=== PATIENT | male | born 1965 ===

== ENCOUNTER 2020-08-06 08:19 | Outpatient (REF) | payer OTHER, SELFPAY | END 2020-08-06 08:20 | disposition home or self-care (01) | LOC: HO.LAB 08:19 | PROVIDERS: Visit Provider Internal Medicine | DX: Z20.822 Contact with and (suspected) exposure to COVID-19 (principal) | CPT/HCPCS: 36415; C9803; U0003 ==

== ENCOUNTER 2020-10-28 13:20 | Outpatient (REF) | payer OTHER, SELFPAY ==
[2020-10-28 15:05] LABS: COVID-19 Test Negative (Negative); IDNOW Serial# 55D5AD1C
== END 2020-10-28 13:21 | disposition home or self-care (01) ==
LOC: HO.LAB 13:20
PROVIDERS: Visit Provider Internal Medicine
DX: Z20.822 Contact with and (suspected) exposure to COVID-19 (principal)
CPT/HCPCS: 36415; 87635; C9803

== ENCOUNTER 2021-01-24 08:10 | Inpatient (IN) | payer MEDICARE, MEDICAID, SELFPAY ==
[2021-01-24] VITALS (13 sets, daily range): BP systolic 121–193; BP diastolic 77–112; PULSE 89–155; RESP 16–21; TEMP 36.9; O2SAT 97–99; BMI 31.8
--- NOTE | ~2021-01-24 | XR_ITS ---
EXAMINATION: XR CHEST CLINICAL INFORMATION: Atrial fibrillation COMPARISON: 06/28/2010 TECHNIQUE: Frontal view of the chest was obtained. FINDINGS: Prominent central vasculature and increased interstitial markings suggestive of mild pulmonary edema. No consolidation or effusion. Normal cardiac silhouette. XR/XR chest 1V IMPRESSION: Probable mild CHF.
--- NOTE | 2021-01-24 08:25 | ECG_ITS ---
Test Reason : TACHY Blood Pressure : / mmHG Vent. Rate : 139 BPM Atrial Rate : 131 BPM P-R Int : 000 ms QRS Dur : 078 ms QT Int : 318 ms P-R-T Axes : 000 021 046 degrees QTc Int : 483 ms Atrial fibrillation with rapid ventricular response with premature ventricular or aberrantly conducted complexes Nonspecific ST abnormality Abnormal ECG When compared with ECG of 28-JUN-2010 12:30, Atrial fibrillation has replaced Sinus rhythm Vent. rate has increased BY 47 BPM Referred By: Bakari Strong Electronically Signed By:SARAH MOE
--- NOTE | 2021-01-24 08:27 | ED.SOB ---
HPI - SOB/Dyspnea General Chief Complaint: Dyspnea Stated Complaint: SOB Time Seen by Provider: 01/24/21 08:25 Source: patient Mode of arrival: ambulatory Limitations: no limitations History of Present Illness HPI Narrative: 55-year-old male otherwise healthy came in for evaluation of shortness of breath. Symptoms started few weeks/months ago when he wakes up at night time feeling short of breath then go back to sleep, same symptoms happened today but did not resolve, patient came to the emergency department appear very anxious found to have heart rate of 150s EKG showed new onset atrial fibrillation with rapid ventricular response. Patient otherwise declined any symptoms at the current time. No chest pain, no palpitation, no shortness of breath, no fever, no chills. Patient is complaining of left ankle swelling for the past few weeks on and off, patient had old fracture to the left ankle in the past. No leg edema or calf tenderness or swelling. Related Data Home Medications Medication Instructions Recorded Confirmed No Known Home Meds 01/24/21 01/24/21 Allergies Allergy/AdvReac Type Severity Reaction Status Date / Time No Known Allergies Allergy Verified 01/24/21 09:17 Review of Systems Review of Systems: All other systems are reviewed and are negative Constitutional: Reports as per HPI and Reports no additional constitutional complaints Eyes: Reports as per HPI and Reports no additional eye complaints Reports system reviewed and no additional complaints, except as documented Cardiovascular: Reports as per HPI and Reports no additional cardiovascular complaints Respiratory: Reports as per HPI and Reports no additional respiratory complaints Gastrointestinal: Reports as per HPI and Reports no additional gastrointestinal complaints Genitourinary: Reports no additional female genitourinary complaints Musculoskeletal: Reports no additional musculoskeletal complaints Skin/Breast: Reports system reviewed and no additional complaints, except as docu Psychiatric: Reports no additional psychiatric complaints Endocrine: Reports no additional endocrine complaints Hematologic/Lymphatic: Reports no additional hematologic/lymphatic complaints Allergic/Immunologic: Reports no additional allergic/immunologic complaints Reports system reviewed and no additional complaints, except as documented and Reports Abnormal speech present [facility] Past Medical History Surgical History S/P hip replacement Status post ORIF of fracture of ankle Social History Social History Advance Directives: No Advance Directives Information Provided: No Physical Exam Vital Signs: Vital Signs: Last Vital Signs Temp 98.5 F 01/24/21 08:19 Pulse 106 H 01/24/21 09:17 Resp 21 H 01/24/21 09:17 BP 162/97 H 01/24/21 09:17 Pulse Ox 99 01/24/21 09:17 Body Mass Index 31.8 Vital signs have been reviewed as appeared to be correct. Blood pressure elevated. Heart rate elevated l. Respiration rate normal. Temperature normal. Oxygen saturation normal. Appearance: Alert. Oriented X3. No acute distress. Anxious Head: Normal external exam. Normocephalic. Atraumatic. No Coffey signs noted. No raccoon eyes noted Eyes: PERRLA. EOMI. Conjunctiva and sclera normal. Eyelids normal. ENT: TM's Normal. Pharynx normal. Uvula midline. Moist mucous membranes. No trismus noted. No drooling noted. No muffled voice noted. Neck: Normal inspection. Neck supple. FROM. No adenopathy. Thyroid Normal. No meningeal signs. No neck mass noted. CVS: Rapid heart beats, with irregular rate and rhythm.. Heart sound normal. No murmurs noted. Pulses normal throughout. Respiratory: No respiratory distress. Painless inspiration. Breath sounds normal. No wheezes/rhonchi noted. Bilateral basilar rales. Chest nontender. No accessory muscle usage noted or decreased air movement noted. Abdomen: Soft and nontender. Bowel sounds normal in all 4 quadrants. No distention noted. No organomegaly noted. No visible injury noted. Back: No CVA tenderness. Full range of motion noted. Skin: Skin warm and dry. Normal skin color. Normal skin turgor. No rashes/lesions/lacerations noted. Extremities: No lower extremity edema. Extremities exhibit normal range of motion. Extremities nontender. Neuro: Oriented X 3. No motor deficit. No sensory deficit. Reflexes normal. Course Course Course Narrative: Assessment and plan. 55-year-old male came in with dyspnea and found to have a new onset of atrial fibrillation with rapid response. Patient given Cardizem IV push and IV drip heart rate now with 105 Bpm. Patient has no complain, time. Admit patient for further cardiology workup. MDM - SOB/Dyspnea Lab Data Attestation: I reviewed the patient's lab results. Result diagrams: 01/24/21 08:29 01/24/21 08:29 Labs: Lab Results 01/24/21 01/24/21 01/24/21 Range/Units 08:29 08:29 08:29 WBC 9.7 (4.8-10.8) X10*3/uL RBC 4.34 L (4.60-5.80) X10*6/uL Hgb 12.7 L (14.0-18.0) g/dl Hct 39.1 L (42-52) % MCV 90.1 (80-98) fL MCH 29.3 (27.0-33.0) pg MCHC 32.5 (31.0-36.0) g/dl RDW 12.7 (11.0-16.0) % Plt Count 369 (160-400) X10*3/uL MPV 10.0 (9.4-12.4) fL Immature Gran % (Auto) 0.2 (0.0-0.4) % Neut % (Auto) 65.2 (45-73) % Lymph % (Auto) 25.2 (20-40) % [place] % (Auto) 8.6 (2-11) % Eos % (Auto) 0.3 (0-4) % Baso % (Auto) 0.5 (0-2) % Lymph # (Auto) 2.4 (1.2-4.9) X10*3/uL [place] # (Auto) 0.8 (0.1-1.2) X10*3/uL Eos # (Auto) 0.0 (0.0-0.4) X10*3/uL Baso # (Auto) 0.1 (0.0-0.2) X10*3/uL Abs Immat Gran (auto) 0.02 (0.00-0.03) X10*3/uL Absolute Neuts (auto) 6.3 (2.0-8.3) X10*3/uL Absolute Nucleated RBC 0.000 (0.0-0.012) X10*3/uL Nucleated RBC % (auto) 0.0 (0.0-0.2) /100WBC Sodium 139 (135-145) mmol/L Potassium 4.1 (3.3-5.1) mmol/L Chloride 104 (96-108) mmol/L Carbon Dioxide 22 (22-29) mmol/L Anion Gap 17 (12-20) BUN 8 L (9-16) mg/dL Creatinine 0.85 (0.5-1.4) mg/dL Estim Creat Clear Calc 137.8 Estimated GFR > 60 Random Glucose 107 (60-115) mg/dL Calcium 9.9 (8.4-10.2) mg/dL Magnesium 1.8 (1.6-2.6) mg/dL Total Bilirubin 1.0 (0.0-1.0) mg/dL Direct Bilirubin 0.5 (0.0-0.5) mg/dL AST 45 H (5-37) U/L ALT 24 (0-40) U/L Alkaline Phosphatase 122 H (39-117) U/L Troponin I High Sens 11.3 (<3.5-35.0) ng/L B-Natriuretic Peptide 240 H (<100) pg/mL Total Protein 7.7 (6.5-8.0) g/dL Albumin 4.1 (3.5-5.0) g/dL Lipase 14 (8-78) U/L COVID-19 (MAZIN) (Negative) COVID-19 Clin Com 01/24/21 Range/Units 08:29 WBC (4.8-10.8) X10*3/uL RBC (4.60-5.80) X10*6/uL Hgb (14.0-18.0) g/dl Hct (42-52) % MCV (80-98) fL MCH (27.0-33.0) pg MCHC (31.0-36.0) g/dl RDW (11.0-16.0) % Plt Count (160-400) X10*3/uL MPV (9.4-12.4) fL Immature Gran % (Auto) (0.0-0.4) % Neut % (Auto) (45-73) % Lymph % (Auto) (20-40) % [place] % (Auto) (2-11) % Eos % (Auto) (0-4) % Baso % (Auto) (0-2) % Lymph # (Auto) (1.2-4.9) X10*3/uL [place] # (Auto) (0.1-1.2) X10*3/uL Eos # (Auto) (0.0-0.4) X10*3/uL Baso # (Auto) (0.0-0.2) X10*3/uL Abs Immat Gran (auto) (0.00-0.03) X10*3/uL Absolute Neuts (auto) (2.0-8.3) X10*3/uL Absolute Nucleated RBC (0.0-0.012) X10*3/uL Nucleated RBC % (auto) (0.0-0.2) /100WBC Sodium (135-145) mmol/L Potassium (3.3-5.1) mmol/L Chloride (96-108) mmol/L Carbon Dioxide (22-29) mmol/L Anion Gap (12-20) BUN (9-16) mg/dL Creatinine (0.5-1.4) mg/dL Estim Creat Clear Calc Estimated GFR Random Glucose (60-115) mg/dL Calcium (8.4-10.2) mg/dL Magnesium (1.6-2.6) mg/dL Total Bilirubin (0.0-1.0) mg/dL Direct Bilirubin (0.0-0.5) mg/dL AST (5-37) U/L ALT (0-40) U/L Alkaline Phosphatase (39-117) U/L Troponin I High Sens (<3.5-35.0) ng/L B-Natriuretic Peptide (<100) pg/mL Total Protein (6.5-8.0) g/dL Albumin (3.5-5.0) g/dL Lipase (8-78) U/L COVID-19 (MAZIN) Negative (Negative) COVID-19 Clin Com See Note Imaging Data Chest x-ray: Radiologist's impression: Probable mild CHF. ECG Data Interpretation: Atrial fibrillation with rapid ventricular response at 01:39 me per minutes, normal axis deviation, normal intervals, no ST-T skin devaughn changes. Critical Care Time Critical Care Time Critical Care Time: Yes Total Critical Care Time: 30 Attestation: I spent 30 minutes providing critical care service to the patient, this including time spent at the bedside to evaluate the patient, reassess the patient, monitoring vital signs, review labs, and radiographic studies, counseling the patient/family, discussing the case with consultants, disposition the patient. Discharge Plan Discharge Clinical Impression: Atrial fibrillation, new onset Congestive heart failure Qualifiers: Heart failure type: unspecified Heart failure chronicity: acute Qualified Code(s): I50.9 - Heart failure, unspecified Patient Disposition: Admitted As Inpatient
[2021-01-24] MEDS: dilTIAZem HCL 50 MG/10 ML VIAL 20 MG IVPUSH (08:28)
[2021-01-24] MEDS: Aspirin Enteric Coated 81 MG TABLET.DR PO (08:32)
[2021-01-24 08:33] LABS: MANUAL DIFF FLAG NO
[2021-01-24 08:35] LABS: Basophils Absolute Auto 0.1 X10*3/uL (0.0-0.2); Basophils Percent Auto 0.5 % (0-2); Eosinophils Percent Auto 0.3 % (0-4); Hematocrit 39.1 % (42-52); Hemoglobin 12.7 g/dl (14.0-18.0); Imm Gran Abs Auto 0.02 X10*3/uL (0.00-0.03); Imm Gran Pct Auto 0.2 % (0.0-0.4); Lymphocytes Absolute Auto 2.4 X10*3/uL (1.2-4.9); Lymphocytes Percent Auto 25.2 % (20-40); Mean Corpuscular HGB Conc 32.5 g/dl (31.0-36.0); Mean Corpuscular Hemoglobin 29.3 pg (27.0-33.0); Mean Corpuscular Volume 90.1 fL (80-98); Monocytes Absolute Auto 0.8 X10*3/uL (0.1-1.2); Monocytes Percent Auto 8.6 % (2-11); Neutrophils Absolute Auto 6.3 X10*3/uL (2.0-8.3); Neutrophils Percent Auto 65.2 % (45-73); Platelet Count 369 X10*3/uL (160-400); Red Blood Count 4.34 X10*6/uL (4.60-5.80); Red Cell Distribution Width 12.7 % (11.0-16.0); White Blood Count 9.7 X10*3/uL (4.8-10.8)
[2021-01-24] MEDS: LORazepam 1 MG TABLET PO (08:37)
[2021-01-24] MEDS: dilTIAZem HCL 125 MG in 0.9 % Sodium Chloride 100 ML 10 MG IVCONT (08:46)
[2021-01-24 08:59] LABS: B Type Natriuretic Peptide 240 pg/mL (<100); Troponin-I High Sensitivity 11.3 ng/L (<3.5-35.0)
[2021-01-24 09:05] LABS: COVID-19 Test Negative (Negative); IDNOW Serial# 9DD0AD1C
[2021-01-24 09:06] LABS: Alanine Aminotransferase 24 U/L (0-40); Albumin Level 4.1 g/dL (3.5-5.0); Alkaline Phosphatase 122 U/L (39-117); Anion Gap 17 (12-20); Aspartate Amino Transferase 45 U/L (5-37); Bilirubin Direct 0.5 mg/dL (0.0-0.5); Blood Urea Nitrogen 8 mg/dL (9-16); Calcium 9.9 mg/dL (8.4-10.2); Carbon Dioxide 22 mmol/L (22-29); Chloride 104 mmol/L (96-108); Creatinine Clr Calc Pharmacy 137.8; Estimated Glomerular Filt Rate > 60; Glucose Random 107 mg/dL (60-115); Lipase 14 U/L (8-78); Magnesium 1.8 mg/dL (1.6-2.6); Potassium 4.1 mmol/L (3.3-5.1); Sodium 139 mmol/L (135-145); Total Protein 7.7 g/dL (6.5-8.0)
--- NOTE | 2021-01-24 09:27 | ECG_ITS ---
Test Reason : DYSPNEA Blood Pressure : / mmHG Vent. Rate : 102 BPM Atrial Rate : 100 BPM P-R Int : 000 ms QRS Dur : 074 ms QT Int : 382 ms P-R-T Axes : 000 -01 021 degrees QTc Int : 497 ms Atrial fibrillation with rapid ventricular response with premature ventricular or aberrantly conducted complexes Abnormal ECG When compared with ECG of 24-JAN-2021 08:18, No significant change was found Referred By: Bakari Strong Electronically Signed By:SARAH MOE
[2021-01-24] MEDS: Furosemide 20 MG/2 ML VIAL IVPUSH (09:37)
--- NOTE | 2021-01-24 09:55 | P.HPHOSP_ITS ---
History of Present Illness Date of Service: 01/24/21 Chief Complaint: sob 55M Presented with shortness of breath and palpitations. Patient states that for last several months he has been having episodes paroxysmal nocturnal dyspnea associated with palpitations. He wakes up some in of the night short of breath clutches his chest, sits up and eventually starts to feel better and goes back to sleep. During the day he feels okay, does note orthopnea. On night of presentation, patient states that he had another similar episode and decided to finally come to the ER to figure out what is going on. Patient denies any medical history, is not on any medications at home. He is morbidly obese, he notices that he snores and sometimes stops breathing and on the night and his friends have told him that he probably has sleep apnea, he does drink alcohol daily, about 12 beers and 5-10 shots fire balls. In ED patient noted to be in atrial fibrillation with rapid ventricular response. Chest x-ray showed some m ild CHF. He was started on diltiazem and given Lasix. Review of Systems Review of Systems: Constitutional: Denies fever, denies Chills Eyes: denies blurry vision ENT: denies sore throat CVS: palpitations Respiratory: dyspnea GI: no abdominal pain : denies dysuria MSK: denies neck pain Skin: denies rash Neuro: denies specific motor weakness Psych: denies suicidal ideation Endocrine: denies heat/cold intoleratnce Hematologic: denies easy bleeding Allergy: denies hives [facility] Family History (Updated 01/24/21 @ 09:59 by Donte David MD) Other Diabetes mellitus Surgical History S/P hip replacement Status post ORIF of fracture of ankle Social History Alcohol intake: current Patient Tobacco Use Status: Former Tobacco user Substance Use Type: Marijuana Advance Directives: No Advance Directives Information Provided: No Meds Allergies Allergy/AdvReac Type Severity Reaction Status Date / Time No Known Allergies Allergy Verified 01/24/21 09:17 Active Medications: Current Medications Generic Name Dose Route Start Last Admin Trade Name Freq PRN Reason Stop Dose Admin Diltiazem HCl 125 mg/ Sodium 125 mls @ 0 mls/hr 01/24/21 08:45 01/24/21 08:46 Chloride IVCONT 10 mg/hr .Q0M TIGIST 10 mls/hr Administration Protocol Per Protocol Home Medications Medication Instructions Recorded Confirmed Last Taken Type No Known Home Meds 01/24/21 01/24/21 Unknown History Physical Exam Vital Signs and Narrative: Vital Signs: Last Vital Signs Temp 98.5 F 01/24/21 08:19 Pulse 106 H 01/24/21 09:17 Resp 21 H 01/24/21 09:17 BP 162/97 H 01/24/21 09:17 Pulse Ox 99 01/24/21 09:17 Body Mass Index 31.8 General: no acute distress HEENT: atraumatic Neck: normal to visual inspection CVS: S1, S2, Rapid irregular Resp: basilar crackles Chest: non tender GI: soft, non tender, non distended : no CVA tenderness Skin: no rashes Extremities: no edema Neuro: Oriented X3, grossly intact Psych: cooperative Results Labs CBC and Chem 7: 01/24/21 08:29 01/24/21 08:29 Labs: Laboratory Results - last 24 hr 01/24/21 01/24/21 01/24/21 08:29 08:29 08:29 MCV 90.1 MCH 29.3 MCHC 32.5 RDW 12.7 Plt Count 369 MPV 10.0 Immature Gran % (Auto) 0.2 Neut % (Auto) 65.2 Lymph % (Auto) 25.2 [place] % (Auto) 8.6 Eos % (Auto) 0.3 Baso % (Auto) 0.5 Lymph # (Auto) 2.4 [place] # (Auto) 0.8 Eos # (Auto) 0.0 Baso # (Auto) 0.1 Abs Immat Gran (auto) 0.02 Absolute Neuts (auto) 6.3 Absolute Nucleated RBC 0.000 Nucleated RBC % (auto) 0.0 Anion Gap 17 Estim Creat Clear Calc 137.8 Estimated GFR > 60 Random Glucose 107 Calcium 9.9 Magnesium 1.8 Total Bilirubin 1.0 Direct Bilirubin 0.5 AST 45 H ALT 24 Alkaline Phosphatase 122 H Troponin I High Sens 11.3 B-Natriuretic Peptide 240 H Total Protein 7.7 Albumin 4.1 Lipase 14 COVID-19 (MAZIN) COVID-19 Clin Com 01/24/21 08:29 MCV MCH MCHC RDW Plt Count MPV Immature Gran % (Auto) Neut % (Auto) Lymph % (Auto) [place] % (Auto) Eos % (Auto) Baso % (Auto) Lymph # (Auto) [place] # (Auto) Eos # (Auto) Baso # (Auto) Abs Immat Gran (auto) Absolute Neuts (auto) Absolute Nucleated RBC Nucleated RBC % (auto) Anion Gap Estim Creat Clear Calc Estimated GFR Random Glucose Calcium Magnesium Total Bilirubin Direct Bilirubin AST ALT Alkaline Phosphatase Troponin I High Sens B-Natriuretic Peptide Total Protein Albumin Lipase COVID-19 (MAZIN) Negative COVID-19 Clin Com See Note Imaging Radiologist's Impressions: Impressions Chest X-Ray 01/24/21 08:25 IMPRESSION: Probable mild CHF. Assessment and Plan (1) Congestive heart failure: Qualifiers: Heart failure chronicity: acute Heart failure type: unspecified Qualified Code(s): I50.9 - Heart failure, unspecified Status: Acute (2) Atrial fibrillation, new onset: Status: Acute 55M presented with sob new onset atrial fibrillation due to Alcohol, likely undiagnosed FARHEEN, concern for cardiomyopathy. cardizem echo cardio eval acute chf unspecified lasix echo alcohol dependence with withdrawl and fatty liver phenobarb Quality Stroke Does the patient have a stroke diagnosis?: No VTE Prior VTE?: No VTE Risk Level:: Medical - moderate - high VTE Device Contraindication: Treatment Not Indicated VTE Drug Contraindication: N/A - Med Ordered
[2021-01-24 10:35] LABS: Glucose Urine UA NEG (NEG); Leukocyte Esterase Urine NEG (NEG); Nitrite Urine NEG (NEG); Specific Gravity - Urine 1.015 (1.005-1.025); Urine Blood NEG (NEG); Urine Ketones NEG (NEG); Urine Protein NEG (NEG-TRACE)
[2021-01-24 10:36] LABS: Appearance Urine CLEAR; Color Urine YELLOW
[2021-01-24] MEDS: PHENobarbitaL sodium 130 MG/ML VIAL 270.4 MG IM (10:36)
[2021-01-24] MEDS: Enoxaparin Sodium 40 MG/0.4 ML SYRINGE SUBCUT (10:36)
--- NOTE | 2021-01-24 11:01 | PM.CNCAR ---
History of Present Illness History of Present Illness Date of Service: 01/24/21 Consult reason: congestive heart failure Chief complaint: H AFIB Narrative: This is a cardiology consultation regarding atrial fibrillation and congestive heart failure. Patient has a history of hypertension but does not take any medications. He is a heavy drinker and drinks a 12 pack every day also with multiple shots. He states that for the last few months he has been noticing difficulty with breathing during physical activities. He also wakes up at night not able to breathe. Not clear if that is orthopnea or obstructive sleep apnea. No anginal-type symptoms. No clear palpitations. He has been found to have atrial fibrillation with rapid rate. We have been asked see him for further evaluation. He denies any prior cardiac history. He used to work in [employer] industry but has not done so in the last year after he had some hip surgery done. As above, drinks daily. Uses marijuana but does not smoke cigarettes. No other drugs. Review of Systems Review of Systems: Yes all other systems are reviewed and are negative Cardiovascular: Cardiovascular: Reports as per HPI, Reports no additional cardiovascular complaints, Denies acrocyanosis, Denies cool extremities, Denies painful fingertips, Denies chest pain, Denies chest pain at rest, Denies diaphoresis, Denies syncope, Denies irregular heart rhythm, Denies claudication, Denies leg edema, Denies lightheadedness, Denies palpitations and Reports dyspnea Respiratory: Respiratory: Reports dyspnea Neurologic: Denies syncope Endocrine: Endocrine: Denies palpitations [facility] Family History Family History (Updated 01/24/21 @ 09:59 by Donte David MD) Other Diabetes mellitus Surgical History Surgical History S/P hip replacement Status post ORIF of fracture of ankle Social History Social History Alcohol intake: current Patient Tobacco Use Status: Former Tobacco user Substance Use Type: Marijuana Advance Directives: No Advance Directives Information Provided: No Meds Allergies Allergy/AdvReac Type Severity Reaction Status Date / Time No Known Allergies Allergy Verified 01/24/21 09:17 Active Medications: Current Medications Generic Name Dose Route Start Last Admin Trade Name Freq PRN Reason Stop Dose Admin Enoxaparin Sodium 40 mg 01/24/21 11:00 01/24/21 10:36 Enoxaparin Sodium 40 Mg/0.4 Ml Syringe SUBCUT 40 mg Q24H [facility] Administration Furosemide 40 mg 01/24/21 18:00 Furosemide 40 Mg/4 Ml Vial IVPUSH BID@0900,1800 [facility] Protocol Diltiazem HCl 125 mg/ Sodium 125 mls @ 0 mls/hr 01/24/21 08:45 01/24/21 08:46 Chloride IVCONT 10 mg/hr .Q0M TIGIST 10 mls/hr Administration Protocol Per Protocol Medication 1 each 01/24/21 10:18 No Benzodiazepines MISCELLANE DAILY [facility] Phenobarbital 60 mg 01/25/21 09:00 Phenobarbital 30 Mg Tablet PO 01/26/21 21:01 BID [facility] Protocol Phenobarbital 30 mg 01/27/21 09:00 Phenobarbital 30 Mg Tablet PO 01/28/21 21:01 BID [facility] Protocol Phenobarbital 30 mg 01/29/21 09:00 Phenobarbital 30 Mg Tablet PO 01/30/21 09:01 DAILY [facility] Protocol Phenobarbital Sodium 202 mg 01/24/21 13:30 Phenobarbital Sodium 130 Mg/Ml Vial IM 01/24/21 16:31 Q3H [facility] Protocol Sodium Chloride 3 ml 01/24/21 16:00 0.9 % Sodium Chloride Flush 3 Ml Syringe IVFLUSH QSHIFT [facility] Home Medications Medication Instructions Recorded Confirmed Last Taken Type No Known Home Meds 01/24/21 01/24/21 Unknown History Physical Exam Vital Signs: Vital Signs: Last Vital Signs Temp 98.5 F 01/24/21 08:19 Pulse 125 H 01/24/21 10:39 Resp 16 01/24/21 10:39 BP 163/82 H 01/24/21 10:39 Pulse Ox 99 01/24/21 09:17 Body Mass Index 31.8 Const: General: cooperative and no acute distress HENMT: Other: Unremarkable Neck: Neck: Yes normal visual inspection Chest: Chest palpation & inspection: normal inspection of the chest Resp: Auscultation: clear to auscultation bilaterally, no crackles and no wheezes Cardio: Jugular venous distension: no JVD Palpation: normal PMI Heart sounds: S1 normal heart sound present, S2 normal heart sound present, no gallops, no murmurs and no rubs GI: Palpation (GI): Soft to palpation Back/Spine/Pelvis: Other: unremarkable Skin: General skin exam: no rashes or lesions noted Neuro: Cranial nerves: Yes Other cranial nerve findings present Extrem: General: Yes no clubbing, cyanosis or edema Psych: Mental Status: other Results Labs and Meds Result diagrams: 01/24/21 08:29 01/24/21 08:29 Lab results: Laboratory Results - last 24 hr 01/24/21 01/24/21 01/24/21 08:29 08:29 08:29 WBC 9.7 RBC 4.34 L Hgb 12.7 L Hct 39.1 L MCV 90.1 MCH 29.3 MCHC 32.5 RDW 12.7 Plt Count 369 MPV 10.0 Immature Gran % (Auto) 0.2 Neut % (Auto) 65.2 Lymph % (Auto) 25.2 [place] % (Auto) 8.6 Eos % (Auto) 0.3 Baso % (Auto) 0.5 Lymph # (Auto) 2.4 [place] # (Auto) 0.8 Eos # (Auto) 0.0 Baso # (Auto) 0.1 Abs Immat Gran (auto) 0.02 Absolute Neuts (auto) 6.3 Absolute Nucleated RBC 0.000 Nucleated RBC % (auto) 0.0 Sodium 139 Potassium 4.1 Chloride 104 Carbon Dioxide 22 Anion Gap 17 BUN 8 L Creatinine 0.85 Estim Creat Clear Calc 137.8 Estimated GFR > 60 Random Glucose 107 Calcium 9.9 Magnesium 1.8 Total Bilirubin 1.0 Direct Bilirubin 0.5 AST 45 H ALT 24 Alkaline Phosphatase 122 H Troponin I High Sens 11.3 B-Natriuretic Peptide 240 H Total Protein 7.7 Albumin 4.1 Lipase 14 Urine Color Urine Appearance Urine pH Ur Specific [place] Urine Protein Urine Glucose (UA) Urine Ketones Urine Blood Urine Nitrite Ur Leukocyte Esterase COVID-19 (MAZIN) COVID-19 Clin Com 01/24/21 01/24/21 08:29 10:24 WBC RBC Hgb Hct MCV MCH MCHC RDW Plt Count MPV Immature Gran % (Auto) Neut % (Auto) Lymph % (Auto) [place] % (Auto) Eos % (Auto) Baso % (Auto) Lymph # (Auto) [place] # (Auto) Eos # (Auto) Baso # (Auto) Abs Immat Gran (auto) Absolute Neuts (auto) Absolute Nucleated RBC Nucleated RBC % (auto) Sodium Potassium Chloride Carbon Dioxide Anion Gap BUN Creatinine Estim Creat Clear Calc Estimated GFR Random Glucose Calcium Magnesium Total Bilirubin Direct Bilirubin AST ALT Alkaline Phosphatase Troponin I High Sens B-Natriuretic Peptide Total Protein Albumin Lipase Urine Color YELLOW Urine Appearance CLEAR Urine pH 6.0 Ur Specific [place] 1.015 Urine Protein NEG Urine Glucose (UA) NEG Urine Ketones NEG Urine Blood NEG Urine Nitrite NEG Ur Leukocyte Esterase NEG COVID-19 (MAZIN) Negative COVID-19 Clin Com See Note ECG Attestation: I personally reviewed and interpreted this ECG as follows: Interpretation: Admission EKG with atrial fibrillation with rapid rate at 139/Min; PVCs versus aberrant conduction. Imaging Radiologist's impression: Impressions Chest X-Ray 01/24/21 08:25 IMPRESSION: Probable mild CHF. Assessment and Plan (1) Atrial fibrillation with rapid ventricular response: Status: Acute (2) Alcohol dependence with uncomplicated withdrawal: Status: Acute (3) Acute CHF (congestive heart failure): Qualifiers: Heart failure type: unspecified Qualified Code(s): I50.9 - Heart failure, unspecified Status: Acute High sensitivity troponins are unremarkable. Cardiac BNP is 240. Reported as probable mild CHF. Currently in atrial fibrillation with rapid rate. Continue IV Cardizem drip. Start oral Cardizem as well. Anticoagulation. Echocardiogram tomorrow. If he does not convert, then probably PREM/cardioversion. Procedures Date of Service Date of Service: 01/24/21
[2021-01-24] MEDS: Enoxaparin Sodium 80 MG/0.8 ML SYRINGE 75 MG SUBCUT (12:17)
[2021-01-24] MEDS: PHENobarbitaL sodium 130 MG/ML VIAL 202 MG IM ×2 (13:16→16:15)
[2021-01-24] MEDS: dilTIAZem HCL 60 MG TABLET PO ×3 (13:24→22:10)
[2021-01-24] MEDS: 0.9 % Sodium Chloride Flush 3 ML SYRINGE IVFLUSH (16:18)
[2021-01-24] MEDS: Furosemide 40 MG/4 ML VIAL IVPUSH (17:17)
[2021-01-24] MEDS: dilTIAZem HCL 125 MG in 0.9 % Sodium Chloride 100 ML IVCONT (19:49)
--- NOTE | 2021-01-24 19:52 | PC.NURSE ---
new bag of cardizem hung at 5ml/hr per protocol
[2021-01-24] MEDS: Enoxaparin Sodium 120 MG/0.8 ML SYRINGE 115 MG SUBCUT (23:02)
[2021-01-25] VITALS (8 sets, daily range): BP systolic 119–142; BP diastolic 72–86; PULSE 91–118; RESP 18–20; TEMP 36.1–36.9; O2SAT 94–97
--- NOTE | 2021-01-25 00:37 | PC.NURSE ---
nurse to nurse report given to Yaima FUNEZ
[2021-01-25] MEDS: 0.9 % Sodium Chloride Flush 3 ML SYRINGE IVFLUSH (01:08)
[2021-01-25 02:49] LABS: Estimated Average Glucose 105 mg/dL; Hemoglobin A1c % 5.3 %
[2021-01-25 05:01] LABS: Hematocrit 34.9 % (42-52); Hemoglobin 11.1 g/dl (14.0-18.0); Mean Corpuscular HGB Conc 31.8 g/dl (31.0-36.0); Mean Corpuscular Hemoglobin 29.1 pg (27.0-33.0); Mean Corpuscular Volume 91.4 fL (80-98); Mean Platelet Volume 10.3 fL (9.4-12.4); Platelet Count 314 X10*3/uL (160-400); Red Blood Count 3.82 X10*6/uL (4.60-5.80); Red Cell Distribution Width 12.7 % (11.0-16.0); White Blood Count 8.2 X10*3/uL (4.8-10.8)
[2021-01-25 05:29] LABS: Anion Gap 12 (12-20); Blood Urea Nitrogen 8 mg/dL (9-16); Calcium 9.5 mg/dL (8.4-10.2); Carbon Dioxide 28 mmol/L (22-29); Chloride 102 mmol/L (96-108); Cholesterol 164 mg/dL; Creatinine Clr Calc Pharmacy 139.4; Estimated Glomerular Filt Rate > 60; Glucose Fasting 105 mg/dL (60-99); HDL Cholesterol 36 mg/dL; LDL Cholesterol Calculated 111 mg/dl; Magnesium 1.8 mg/dL (1.6-2.6); Sodium 138 mmol/L (135-145); Triglycerides 85 mg/dL
--- NOTE | 2021-01-25 07:30 | CA_ITS ---
Transthoracic Echocardiogram Patient (Last, First, Middle): Nitesh Osorio, Gender: Male Date of : 1965 Age: 55 Procedure Date: 01/25/2021 Procedure Type: Transthoracic Echocardiogram [place] [facility] [place]: 190.5 cm Weight: 129.28 kg BSA: 2.55 m2 Heart Rate: bpm BP: 119 / 80 mmHg Underwriting Technician: Referring MD: Donte David MD Symptoms: chf, afib Study Quality: Fair ECG Rhythm: Sinus Conclusions: - Normal left ventricular size and systolic function. - Mildly increased right ventricular cavity size. There is normal right ventricular systolic function. - The left atrium is moderately dilated. - Significantly elevated right atrial pressure. - There is mild dilatation of the ascending aorta. Findings Left Ventricle Normal left ventricular size and systolic function. There is mildly increased left ventricular wall thickness. The visually estimated ejection fraction is between 60-65%. There is no evidence of regional wall motion abnormalities. Diastolic function is indeterminate on the basis of available data. Right Ventricle Mildly increased right ventricular cavity size. There is normal right ventricular systolic function. Atria The left atrium is moderately dilated. Aortic Valve Normal aortic valve structure and function. There is no aortic valve stenosis. There is no aortic valve regurgitation. Mitral Valve Normal mitral valve structure and function. There is no mitral valve regurgitation. There is no mitral valve stenosis. Pulmonic Valve The pulmonic valve is likely normal. Tricuspid Valve Normal tricuspid valve structure and function. There is trace tricuspid valve regurgitation. Significantly elevated right atrial pressure. There is no evidence of pulmonary hypertension. Great Vessels There is mild dilatation of the ascending aorta. The visualized portions of the pulmonary artery and branches are normal. Venous The inferior vena cava is dilated and does not collapse with inspiration. Pericardium/Pleural There is no evidence of pericardial effusion. Prior Study Comparison No prior study available for comparison. Measurements 2D Linear Measurements IVSd: 1.24 0.6-0.9/0.6-1.0 cm LVIDd: 4.71 3.9-5.3/4.2-5.9 cm LVIDd Index: 1.85 2.4-3.2/2.2-3.1 cm/m2 LVIDs: 3.06 2.0-3.6 cm LVPWd: 1.27 0.7-1.1 cm Ao Root: 3.90 2.1-3.5 cm LA Diam: 4.70 2.7-3.8/3.0-4.0 cm LAIDs Index: 1.84 1.5-2.3 cm/m2 LV Mass: 282.76 67-162/88-224 g LV Mass Index: 110.88 43-95/49-115 g/m2 LVOT Diam: 2.50 3.0+(-)1.3 cm 2D Systolic Function EF 4C: 51.90 >55% EF 2C: 45.00 >55% Mitral Valve MV Pk E: 1.14 MV Decel Time: 139.00 E'Lateral: 8.81 E'Medial: 9.90 E/E' Med: 11.50 E/E' Lat: 12.90 PHT: 41.00 MVA PHT: 5.37 Decel [place]: 8.17 Aortic Valve AoV Pk Jl: 1.42 AoV Mn Jl: 0.97 AoV VTI: 0.27 AoV Pk Grad: 8.00 Aov Mn Grad: 4.00 LOURDES Cont.VTI: 3.05 LVOT LVOT Pk Jl: 0.89 LVOT Mn Jl: 0.54 LVOT VTI: 0.17 LVOT Pk Grad: 3.00 LVOT Mn Grad: 1.00 LVOT Diam: 2.50 LVOT Area: 4.91 Diastolic Function MV Pk E: 1.14 E'Medial: 9.90 E/E' Med: 11.50 E' Laterial: 8.81 E/E' Lat: 12.90 Tricuspid Valve TR Pk Jl: 2.16 TR Pk Grad: 19.00 RVSP: 34.00 Great Vessels Aorta Ao Root-2D: 3.90 2.0-3.7 cm Ao Asc: 3.90 2.1-3.4 cm Pulmonary Valve PV Pk Jl: 0.96 Peak PV Grad: 4.00 Updated in Other Vendor System with Status of Final Tato Delgado MD electronically signed on 01/25/2021 12:46:27 PM with status of Final
[2021-01-25] MEDS: Enoxaparin Sodium 120 MG/0.8 ML SYRINGE 115 MG SUBCUT ×2 (08:40→21:16)
[2021-01-25] MEDS: PHENobarbitaL 30 MG TABLET 60 MG PO ×2 (08:40→21:16)
[2021-01-25] MEDS: Furosemide 40 MG/4 ML VIAL IVPUSH (08:40)
[2021-01-25] MEDS: dilTIAZem HCL 60 MG TABLET PO ×4 (08:40→21:16)
--- NOTE | 2021-01-25 10:43 | P.PNIM_ITS ---
Subjective Subjective Date of Service: 01/25/21 Interval History: slept better, less sob Cardiovascular Cardiovascular: Reports no additional cardiovascular complaints Respiratory Respiratory: Reports no additional respiratory complaints Physical Exam Vital Signs: Vital Signs: Last Vital Signs Temp 97.6 F 01/25/21 07:50 Pulse 102 H 01/25/21 07:50 Resp 20 01/25/21 07:50 BP 135/72 01/25/21 07:50 Pulse Ox 94 01/25/21 07:50 Body Mass Index 31.8 General: AO X 3, no acute distress Resp: CTA bilateral CVS: S1,S2,Rapid irregular GI: soft, non tender, non distended Neuro: motor grossly intact Psych: appropriate affect Objective Data Current Medications Generic Name Dose Route Start Last Admin Trade Name Freq PRN Reason Stop Dose Admin Diltiazem HCl 60 mg 01/24/21 13:00 01/25/21 08:40 Diltiazem Hcl 60 Mg Tablet PO 60 mg QID TIGIST Administration Protocol Enoxaparin Sodium 115 mg 01/24/21 22:00 01/25/21 08:40 Enoxaparin Sodium 120 Mg/0.8 Ml Syringe 1 mg/kg (115 mg) 115 mg SUBCUT Administration Q12H [facility] Furosemide 40 mg 01/24/21 18:00 01/25/21 08:40 Furosemide 40 Mg/4 Ml Vial IVPUSH 40 mg BID@0900,1800 [facility] Administration Protocol Diltiazem HCl 125 mg/ Sodium 125 mls @ 0 mls/hr 01/24/21 08:45 01/24/21 19:49 Chloride IVCONT 5 mg/hr .Q0M TIGIST 5 mls/hr Administration Protocol Per Protocol Medication 1 each 01/24/21 10:18 No Benzodiazepines MISCELLANE DAILY [facility] Phenobarbital 60 mg 01/25/21 09:00 01/25/21 08:40 Phenobarbital 30 Mg Tablet PO 01/26/21 21:01 60 mg BID TIGIST Administration Protocol Phenobarbital 30 mg 01/27/21 09:00 Phenobarbital 30 Mg Tablet PO 01/28/21 21:01 BID [facility]IG[facility] Protocol Phenobarbital 30 mg 01/29/21 09:00 Phenobarbital 30 Mg Tablet PO 01/30/21 09:01 DAILY [facility] Protocol Sodium Chloride 3 ml 01/24/21 16:00 01/25/21 08:41 0.9 % Sodium Chloride Flush 3 Ml Syringe IVFLUSH Not Given QSHIFT [facility] Labs CBC & Chem 7: 01/25/21 04:40 01/25/21 04:40 Labs: Laboratory Results - last 24 hr 01/24/21 01/25/21 01/25/21 08:29 04:40 04:40 WBC 8.2 RBC 3.82 L Hgb 11.1 L Hct 34.9 L MCV 91.4 MCH 29.1 MCHC 31.8 RDW 12.7 Plt Count 314 MPV 10.3 Absolute Nucleated RBC 0.000 Nucleated RBC % (auto) 0.0 Sodium 138 Potassium 4.0 Chloride 102 Carbon Dioxide 28 Anion Gap 12 BUN 8 L Creatinine 0.84 Estim Creat Clear Calc 139.4 Estimated GFR > 60 Fasting Glucose 105 H Estimat Average Glucose 105 Hemoglobin A1c % 5.3 Calcium 9.5 Magnesium 1.8 Triglycerides 85 Cholesterol 164 LDL Cholesterol, Calc 111 HDL Cholesterol 36 Quality Stroke Does the patient have a stroke diagnosis?: No VTE Prior VTE?: No VTE Risk Level:: Medical - moderate - high VTE Device Contraindication: Treatment Not Indicated VTE Drug Contraindication: N/A - Med Ordered Assessment and Plan (1) Acute CHF (congestive heart failure): Status: Acute (2) Atrial fibrillation with rapid ventricular response: Status: Acute Assessment and Plan: 55M presented with sob new onset atrial fibrillation due to Alcohol, likely undiagnosed FARHEEN cardizem still rapid plan for possible PREM/CV today echo pending cardio following therapeutic lovenox acute chf unspecified improved with iv diuresis check echo alcohol dependence with withdrawal and fatty liver phenobarb
--- NOTE | 2021-01-25 12:28 | P.PNCA_ITS ---
Subjective Subjective Date of Service: 01/25/21 Interval history: Feeling better. Still in Afib with RVR. Physical Exam Vital Signs: Last Vital Signs Temp 97.4 F 01/25/21 11:06 Pulse 101 H 01/25/21 11:06 Resp 20 01/25/21 11:06 BP 141/73 H 01/25/21 11:06 Pulse Ox 95 01/25/21 11:06 Body Mass Index 31.8 GENERAL APPEARANCE: in no acute distress, pleasant. NECK: no carotid bruit, + jugular venous distention. SKIN: no suspicious lesions, warm and dry. HEART: no murmurs, regular rate and rhythm. LUNGS: clear to auscultation bilaterally. ABDOMEN: soft, nontender. EXTREMITIES: no edema. PERIPHERAL PULSES: equal. NEUROLOGIC: No gross deficits, AAO X 3 Results Labs and Meds Result diagrams: 01/25/21 04:40 01/25/21 04:40 Lab results: Laboratory Results - last 24 hr 01/24/21 01/25/21 01/25/21 08:29 04:40 04:40 WBC 8.2 RBC 3.82 L Hgb 11.1 L Hct 34.9 L MCV 91.4 MCH 29.1 MCHC 31.8 RDW 12.7 Plt Count 314 MPV 10.3 Absolute Nucleated RBC 0.000 Nucleated RBC % (auto) 0.0 Sodium 138 Potassium 4.0 Chloride 102 Carbon Dioxide 28 Anion Gap 12 BUN 8 L Creatinine 0.84 Estim Creat Clear Calc 139.4 Estimated GFR > 60 Fasting Glucose 105 H Estimat Average Glucose 105 Hemoglobin A1c % 5.3 Calcium 9.5 Magnesium 1.8 Triglycerides 85 Cholesterol 164 LDL Cholesterol, Calc 111 HDL Cholesterol 36 Progress Note: A&P Assessment and plan (1) Acute CHF (congestive heart failure): Status: Acute (2) Atrial fibrillation with rapid ventricular response: Status: Acute (3) Alcohol dependence with uncomplicated withdrawal: Status: Acute Assessment and Plan: Pleasant 55-year-old gentleman with background history of alcohol use and obesity who is presenting with AFib with RVR and shortness of breath. Clinically was thought to be in heart failure has been on diuretics. Some of his symptoms sound like sleep apnea. Can change to p.o. diuretics. Continue diltiazem drip. Change enoxaparin to Eliquis 5 mg twice a day. Keep NPO after midnight we will do PREM cardioversion tomorrow. Alcohol abstinence. Sleep study as outpatient. Thank you for allowing me to participate in the care of your patient. Please feel free to contact me if you have any questions. Fall Risk Details Current Medications: Current Medications Generic Name Dose Route Start Last Admin Trade Name Karin PRN Reason Stop Dose Admin Diltiazem HCl 60 mg 01/24/21 13:00 01/25/21 08:40 Diltiazem Hcl 60 Mg Tablet PO 60 mg QID TIGIST Administration Protocol Enoxaparin Sodium 115 mg 01/24/21 22:00 01/25/21 08:40 Enoxaparin Sodium 120 Mg/0.8 Ml Syringe 1 mg/kg (115 mg) 115 mg SUBCUT Administration Q12H [facility] Furosemide 40 mg 01/26/21 09:00 Furosemide 40 Mg Tablet PO DAILY T[facility] Protocol Diltiazem HCl 125 mg/ Sodium 125 mls @ 0 mls/hr 01/24/21 08:45 01/24/21 19:49 Chloride IVCONT 5 mg/hr .Q0M TIGIST 5 mls/hr Administration Protocol Per Protocol Medication 1 each 01/24/21 10:18 No Benzodiazepines MISCELLANE DAILY [facility] Phenobarbital 60 mg 01/25/21 09:00 01/25/21 08:40 Phenobarbital 30 Mg Tablet PO 01/26/21 21:01 60 mg BID TIGIST Administration Protocol Phenobarbital 30 mg 01/27/21 09:00 Phenobarbital 30 Mg Tablet PO 01/28/21 21:01 BID TIGIST Protocol Phenobarbital 30 mg 01/29/21 09:00 Phenobarbital 30 Mg Tablet PO 01/30/21 09:01 DAILY TIG[facility] Protocol Sodium Chloride 3 ml 01/24/21 16:00 01/25/21 08:41 0.9 % Sodium Chloride Flush 3 Ml Syringe IVFLUSH Not Given QSHIFT [facility] Time Spent With Patient Time: Total time spent is greater than 50% in coordination of care (as documented) at patient's floor/unit and/or counseling patient: Time with patient: 25 - 35 minutes Progress Note: Quality Stroke Does the patient have a stroke diagnosis?: No Procedures Date of Service Date of Service: 01/25/21
--- NOTE | 2021-01-25 12:38 | PC.NURSE ---
Cardizem drip titrated up to 10mg/hour per Dr. Delgado. HR 100's at rest, 130's with activity.
[2021-01-25] MEDS: Acetaminophen 325 MG TABLET 650 MG PO ×2 (13:58→23:18)
--- NOTE | 2021-01-25 14:18 | MHC.CM.PN ---
CM MET WITH PT WHO REPORTS HE LIVES WITH HIS S/O AND DAUGHTER. HE REPORTS HE IS FULLY INDEPENDENT , HAS NO SERVICES AND NO DME. PT DID NOT HAVE A HCP BUT COMPLETED ONE TODAY NAMING HIS S/O AGUSTINA BAKER ([phone]) AND HIS SISTER, RAVINDER BAUMANN ([phone]) HIS PRIMARY AND ALTERNATE AGENTS RESPECTIVELY. PT DOES NOT KNOW THE NAME OF HIS PCP BUT REPORTS GOING TO [place] ON [facility] IN [place]. CM ATTEMPTED TO CALL FOR PCP NAME HOWEVER THE WAIT TIME FOR THE CALL TO BE ANSWERED WAS TOO LONG. INN DELIVERED CURRENT DC PLAN IS HOME WITH NO SERVICES PT WILL SELF ARRANGE TRANSPORTATION
[2021-01-25] MEDS: dilTIAZem HCL 125 MG in 0.9 % Sodium Chloride 100 ML IVCONT (17:48)
[2021-01-26] VITALS (18 sets, daily range): BP systolic 103–173; BP diastolic 67–103; PULSE 65–150; RESP 16–20; TEMP 36.2–37.2; O2SAT 92–98
[2021-01-26 04:47] LABS: Hematocrit 36.3 % (42-52); Hemoglobin 11.8 g/dl (14.0-18.0); Mean Corpuscular HGB Conc 32.5 g/dl (31.0-36.0); Mean Corpuscular Hemoglobin 29.5 pg (27.0-33.0); Mean Corpuscular Volume 90.8 fL (80-98); Platelet Count 318 X10*3/uL (160-400); Red Cell Distribution Width 12.6 % (11.0-16.0); White Blood Count 8.3 X10*3/uL (4.8-10.8)
[2021-01-26 05:14] LABS: Anion Gap 12 (12-20); Blood Urea Nitrogen 11 mg/dL (9-16); Calcium 9.5 mg/dL (8.4-10.2); Carbon Dioxide 27 mmol/L (22-29); Chloride 101 mmol/L (96-108); Creatinine Clr Calc Pharmacy 136.2; Estimated Glomerular Filt Rate > 60; Glucose Fasting 115 mg/dL (60-99); Magnesium 1.7 mg/dL (1.6-2.6); Sodium 136 mmol/L (135-145)
[2021-01-26 05:16] LABS: B Type Natriuretic Peptide 90 pg/mL (<100)
[2021-01-26] MEDS: dilTIAZem HCL 125 MG in 0.9 % Sodium Chloride 100 ML IVCONT (05:59)
[2021-01-26] MEDS: PHENobarbitaL 30 MG TABLET 60 MG PO (09:48)
[2021-01-26] MEDS: Enoxaparin Sodium 120 MG/0.8 ML SYRINGE 115 MG SUBCUT (09:49)
[2021-01-26] MEDS: Magnesium Oxide 400 MG TABLET 800 MG PO (09:49)
[2021-01-26] MEDS: Furosemide 40 MG TABLET PO (09:49)
[2021-01-26] MEDS: dilTIAZem HCL 60 MG TABLET PO (09:49)
--- NOTE | 2021-01-26 11:30 | CA_ITS ---
Transesophageal Echocardiogram Patient (Last, First, Middle): Nitesh Osorio, Gender: Male Date of : 1965 Age: 55 Procedure Date: 01/26/2021 Procedure Type: Transesophageal Echocardiogram Location: OP Height: 172.72 cm Weight: kg Cartographic Aide: HILDA Referring MD: Tato Delgado MD Symptoms: Afib Conclusion: ??? Thrombus noted in the left atrium appendage and we decided not to perform cardioversion. ??? Patient developed laryngospasm and respiratory distress and we decided to stop. Findings Procedure Information Consent was obtained prior to the procedure. The adult omniplane probe was passed with no difficulty. This was a technically good study. Atria Moderate echocontrast in the left atrium. Thrombus noted in the left atrial appendage. Updated by Tato Delgado on 09:27 PM with Status of Final Tato Delgado MD electronically signed on 01/26/2021 9:27:20 PM with status of Final
--- NOTE | 2021-01-26 11:53 | HO.PM.IMPN ---
Subjective Subjective Date of Service: 01/26/21 Interval History: trouble sleeping Cardiovascular Cardiovascular: Reports no additional cardiovascular complaints Gastrointestinal Gastrointestinal: Reports no additional gastrointestinal complaints Physical Exam Vital Signs: Vital Signs: Last Vital Signs Temp 98.5 F 01/26/21 10:56 Pulse 94 01/26/21 10:56 Resp 20 01/26/21 10:56 BP 119/81 01/26/21 10:56 Pulse Ox 95 01/26/21 10:56 Body Mass Index 31.8 General: AO X 3, no acute distress Resp: CTA bilateral CVS: S1,S2, irregular GI: soft, non tender, non distended Neuro: motor grossly intact Psych: appropriate affect Objective Data Current Medications Generic Name Dose Route Start Last Admin Trade Name Freq PRN Reason Stop Dose Admin Acetaminophen 650 mg 01/25/21 12:43 01/25/21 23:18 Acetaminophen 325 Mg Tablet PO 650 mg Q6H PRN Administration Pain, Moderate (Pain Scale 4-6 Diltiazem HCl 60 mg 01/24/21 13:00 01/26/21 09:49 Diltiazem Hcl 60 Mg Tablet PO 60 mg QID TIGIST Administration Protocol Enoxaparin Sodium 115 mg 01/24/21 22:00 01/26/21 09:49 Enoxaparin Sodium 120 Mg/0.8 Ml Syringe 1 mg/kg (115 mg) 115 mg SUBCUT Administration Q12H [facility] Furosemide 40 mg 01/26/21 09:00 01/26/21 09:49 Furosemide 40 Mg Tablet PO 40 mg DAILY TIGIST Administration Protocol Diltiazem HCl 125 mg/ Sodium 125 mls @ 0 mls/hr 01/24/21 08:45 01/26/21 05:59 Chloride IVCONT 2.5 mg/hr .Q0M TIGIST 2.5 mls/hr Administration Protocol Per Protocol Medication 1 each 01/24/21 10:18 No Benzodiazepines MISCELLANE DAILY [facility] Phenobarbital 60 mg 01/25/21 09:00 01/26/21 09:48 Phenobarbital 30 Mg Tablet PO 01/26/21 21:01 60 mg BID TIGIST Administration Protocol Phenobarbital 30 mg 01/27/21 09:00 Phenobarbital 30 Mg Tablet PO 01/28/21 21:01 BID TIGIST Protocol Phenobarbital 30 mg 01/29/21 09:00 Phenobarbital 30 Mg Tablet PO 01/30/21 09:01 DAILY TIGIST Protocol Sodium Chloride 3 ml 01/24/21 16:00 01/26/21 09:51 0.9 % Sodium Chloride Flush 3 Ml Syringe IVFLUSH Not Given QSHIFT [facility] Labs CBC & Chem 7: 01/26/21 04:38 01/26/21 04:38 Labs: Laboratory Results - last 24 hr 01/26/21 01/26/21 01/26/21 04:38 04:38 04:38 WBC 8.3 RBC 4.00 L Hgb 11.8 L Hct 36.3 L MCV 90.8 MCH 29.5 MCHC 32.5 RDW 12.6 Plt Count 318 MPV 10.0 Absolute Nucleated RBC 0.000 Nucleated RBC % (auto) 0.0 Sodium 136 Potassium 4.0 Chloride 101 Carbon Dioxide 27 Anion Gap 12 BUN 11 Creatinine 0.86 Estim Creat Clear Calc 136.2 Estimated GFR > 60 Fasting Glucose 115 H Calcium 9.5 Magnesium 1.7 B-Natriuretic Peptide 90 Quality Stroke Does the patient have a stroke diagnosis?: No VTE Prior VTE?: No VTE Risk Level:: Medical - moderate - high VTE Device Contraindication: Treatment Not Indicated VTE Drug Contraindication: N/A - Med Ordered Assessment and Plan (1) Acute CHF (congestive heart failure): Status: Acute (2) Atrial fibrillation with rapid ventricular response: Status: Acute Assessment and Plan: 55M presented with sob new onset atrial fibrillation due to Alcohol, likely undiagnosed FARHEEN - needs outpatient sleep study cardizem IV and po better rate controle now plan for possible PREM/CV today echo - normal EF, some RVH cardio following therapeutic lovenox acute chf unspecified improved with iv diuresis now on oral alcohol dependence with withdrawal and fatty liver phenobarb
--- NOTE | 2021-01-26 12:41 | PC.NURSE ---
Cardizem gtt stopped at 1223 per verbal order by Dr. Delgado. pt HR 100-105. pt remains in afib. New IV access obtained. #20g to right lower forearm. pt tolerated well.
--- NOTE | 2021-01-26 12:57 | HO.ANESPROP2 ---
[facility] Active Problems Active Problems: All Active Problems (Updated 01/25/21 @ 10:44 by Donte David MD) Acute CHF (congestive heart failure) (Acute) Atrial fibrillation with rapid ventricular response (Acute) Alcoholic fatty liver (Acute) Alcohol dependence with uncomplicated withdrawal (Acute) Family History Family History Other Diabetes mellitus Surgical History Surgical History S/P hip replacement Status post ORIF of fracture of ankle Social History Social History Household Members: Significant Other and Children Household Members Other:: Girlfriend and daughter Housing: House Do you presently have visiting nurse or other home services: No Alcohol intake: current Patient Tobacco Use Status: Never used Tobacco Substance Use Type: Marijuana service: No Current occupational status: unemployed Meds Allergies Allergy/AdvReac Type Severity Reaction Status Date / Time No Known Allergies Allergy Verified 01/24/21 09:17 Active Medications: Current Medications Generic Name Dose Route Start Last Admin Trade Name Freq PRN Reason Stop Dose Admin Acetaminophen 650 mg 01/25/21 12:43 01/25/21 23:18 Acetaminophen 325 Mg Tablet PO 650 mg Q6H PRN Administration Pain, Moderate (Pain Scale 4-6 Diltiazem HCl 60 mg 01/24/21 13:00 01/26/21 09:49 Diltiazem Hcl 60 Mg Tablet PO 60 mg QID TIGIST Administration Protocol Enoxaparin Sodium 115 mg 01/24/21 22:00 01/26/21 09:49 Enoxaparin Sodium 120 Mg/0.8 Ml Syringe 1 mg/kg (115 mg) 115 mg SUBCUT Administration Q12H [facility] Furosemide 40 mg 01/26/21 09:00 01/26/21 09:49 Furosemide 40 Mg Tablet PO 40 mg DAILY TIGIST Administration Protocol Diltiazem HCl 125 mg/ Sodium 125 mls @ 0 mls/hr 01/24/21 08:45 01/26/21 05:59 Chloride IVCONT 2.5 mg/hr .Q0M TIGIST 2.5 mls/hr Administration Protocol Per Protocol Medication 1 each 01/24/21 10:18 No Benzodiazepines MISCELLANE DAILY [facility] Phenobarbital 60 mg 01/25/21 09:00 01/26/21 09:48 Phenobarbital 30 Mg Tablet PO 01/26/21 21:01 60 mg BID [facility] Administration Protocol Phenobarbital 30 mg 01/27/21 09:00 Phenobarbital 30 Mg Tablet PO 01/28/21 21:01 BID [facility] Protocol Phenobarbital 30 mg 01/29/21 09:00 Phenobarbital 30 Mg Tablet PO 01/30/21 09:01 DAILY [facility] Protocol Sodium Chloride 3 ml 01/24/21 16:00 01/26/21 09:51 0.9 % Sodium Chloride Flush 3 Ml Syringe IVFLUSH Not Given QSHIFT [facility] Home Medications Medication Instructions Recorded Confirmed Last Taken Type No Known Home Meds 01/24/21 01/24/21 Unknown History Exam Exam Date and Time: January 26, 2021 1257 Height,Weight and Vital Signs: Height 6 ft 3 in Weight 255 lb Last Vital Signs Temp 97.1 F 01/26/21 12:24 Pulse 98 01/26/21 12:24 Resp 18 01/26/21 12:24 BP 140/94 H 01/26/21 12:24 Pulse Ox 96 01/26/21 12:24 Pertinent Lab Results Pertinent Lab Results: Laboratory Tests 01/24/21 01/24/21 01/24/21 08:29 08:29 08:29 WBC 9.7 RBC 4.34 L Hgb 12.7 L Hct 39.1 L MCV 90.1 MCH 29.3 MCHC 32.5 RDW 12.7 Plt Count 369 MPV 10.0 Immature Gran % (Auto) 0.2 Neut % (Auto) 65.2 Lymph % (Auto) 25.2 [place] % (Auto) 8.6 Eos % (Auto) 0.3 Baso % (Auto) 0.5 Lymph # (Auto) 2.4 [place] # (Auto) 0.8 Eos # (Auto) 0.0 Baso # (Auto) 0.1 Abs Immat Gran (auto) 0.02 Absolute Neuts (auto) 6.3 Absolute Nucleated RBC 0.000 Nucleated RBC % (auto) 0.0 Sodium 139 Potassium 4.1 Chloride 104 Carbon Dioxide 22 Anion Gap 17 BUN 8 L Creatinine 0.85 Estim Creat Clear Calc 137.8 Estimated GFR > 60 Random Glucose 107 Fasting Glucose Estimat Average Glucose Hemoglobin A1c % Calcium 9.9 Magnesium 1.8 Total Bilirubin 1.0 Direct Bilirubin 0.5 AST 45 H ALT 24 Alkaline Phosphatase 122 H Troponin I High Sens 11.3 B-Natriuretic Peptide 240 H Total Protein 7.7 Albumin 4.1 Triglycerides Cholesterol LDL Cholesterol, Calc HDL Cholesterol Lipase 14 Urine Color Urine Appearance Urine pH Ur Specific [place] Urine Protein Urine Glucose (UA) Urine Ketones Urine Blood Urine Nitrite Ur Leukocyte Esterase COVID-19 (MAZIN) COVID-19 Clin Com 01/24/21 01/24/21 01/24/21 08:29 08:29 10:24 WBC RBC Hgb Hct MCV MCH MCHC RDW Plt Count MPV Immature Gran % (Auto) Neut % (Auto) Lymph % (Auto) [place] % (Auto) Eos % (Auto) Baso % (Auto) Lymph # (Auto) [place] # (Auto) Eos # (Auto) Baso # (Auto) Abs Immat Gran (auto) Absolute Neuts (auto) Absolute Nucleated RBC Nucleated RBC % (auto) Sodium Potassium Chloride Carbon Dioxide Anion Gap BUN Creatinine Estim Creat Clear Calc Estimated GFR Random Glucose Fasting Glucose Estimat Average Glucose 105 Hemoglobin A1c % 5.3 Calcium Magnesium Total Bilirubin Direct Bilirubin AST ALT Alkaline Phosphatase Troponin I High Sens B-Natriuretic Peptide Total Protein Albumin Triglycerides Cholesterol LDL Cholesterol, Calc HDL Cholesterol Lipase Urine Color YELLOW Urine Appearance CLEAR Urine pH 6.0 Ur Specific [place] 1.015 Urine Protein NEG Urine Glucose (UA) NEG Urine Ketones NEG Urine Blood NEG Urine Nitrite NEG Ur Leukocyte Esterase NEG COVID-19 (MAZIN) Negative COVID-19 Clin Com See Note 01/25/21 01/25/21 01/26/21 04:40 04:40 04:38 WBC 8.2 8.3 RBC 3.82 L 4.00 L Hgb 11.1 L 11.8 L Hct 34.9 L 36.3 L MCV 91.4 90.8 MCH 29.1 29.5 MCHC 31.8 32.5 RDW 12.7 12.6 Plt Count 314 318 MPV 10.3 10.0 Immature Gran % (Auto) Neut % (Auto) Lymph % (Auto) [place] % (Auto) Eos % (Auto) Baso % (Auto) Lymph # (Auto) [place] # (Auto) Eos # (Auto) Baso # (Auto) Abs Immat Gran (auto) Absolute Neuts (auto) Absolute Nucleated RBC 0.000 0.000 Nucleated RBC % (auto) 0.0 0.0 Sodium 138 Potassium 4.0 Chloride 102 Carbon Dioxide 28 Anion Gap 12 BUN 8 L Creatinine 0.84 Estim Creat Clear Calc 139.4 Estimated GFR > 60 Random Glucose Fasting Glucose 105 H Estimat Average Glucose Hemoglobin A1c % Calcium 9.5 Magnesium 1.8 Total Bilirubin Direct Bilirubin AST ALT Alkaline Phosphatase Troponin I High Sens B-Natriuretic Peptide Total Protein Albumin Triglycerides 85 Cholesterol 164 LDL Cholesterol, Calc 111 HDL Cholesterol 36 Lipase Urine Color Urine Appearance Urine pH Ur Specific [place] Urine Protein Urine Glucose (UA) Urine Ketones Urine Blood Urine Nitrite Ur Leukocyte Esterase COVID-19 (MAZIN) COVID-19 Audiodraft Com 01/26/21 01/26/21 04:38 04:38 WBC RBC Hgb Hct MCV MCH MCHC RDW Plt Count MPV Immature Gran % (Auto) Neut % (Auto) Lymph % (Auto) [place] % (Auto) Eos % (Auto) Baso % (Auto) Lymph # (Auto) [place] # (Auto) Eos # (Auto) Baso # (Auto) Abs Immat Gran (auto) Absolute Neuts (auto) Absolute Nucleated RBC Nucleated RBC % (auto) Sodium 136 Potassium 4.0 Chloride 101 Carbon Dioxide 27 Anion Gap 12 BUN 11 Creatinine 0.86 Estim Creat Clear Calc 136.2 Estimated GFR > 60 Random Glucose Fasting Glucose 115 H Estimat Average Glucose Hemoglobin A1c % Calcium 9.5 Magnesium 1.7 Total Bilirubin Direct Bilirubin AST ALT Alkaline Phosphatase Troponin I High Sens B-Natriuretic Peptide 90 Total Protein Albumin Triglycerides Cholesterol LDL Cholesterol, Calc HDL Cholesterol Lipase Urine Color Urine Appearance Urine pH Ur Specific [place] Urine Protein Urine Glucose (UA) Urine Ketones Urine Blood Urine Nitrite Ur Leukocyte Esterase COVID-19 (MAZIN) COVID-19 Clin Com Airway Mallampati Class: III TM Dist: >3cm Neck ROM: Full Loose/Missing/Broken Teeth: No Heart: afib Assessment and Plan Assessment Anesthesia Assessment: Anesthesia Plan Discussed and Chart Reviewed Final Anesthetic Review NPO: Yes ASA Class: III Final Preanesthetic Review: No Changes in Pt Med Stat, Meds/Allgs Chart Reviewed, Consent Obtained/Reviewed and Anes Risks/Benef Reviewed Patient Risk: Intermediate Procedure Risk: Low Anesthetic Plan Anesthetic Plan: MAC: Disposition: Standard PACU
--- NOTE | 2021-01-26 12:59 | P.PNCA_ITS ---
Subjective Subjective Date of Service: 01/26/21 Interval history: Still getting some shortness of breath at night. Symptoms sound like obstructive sleep apnea. On Cardizem drip. Physical Exam Vital Signs: Last Vital Signs Temp 97.1 F 01/26/21 12:24 Pulse 98 01/26/21 12:24 Resp 18 01/26/21 12:24 BP 140/94 H 01/26/21 12:24 Pulse Ox 96 01/26/21 12:24 Body Mass Index 31.8 GENERAL APPEARANCE: in no acute distress, pleasant. NECK: no carotid bruit, + jugular venous distention. SKIN: no suspicious lesions, warm and dry. HEART: no murmurs, regular rate and rhythm. LUNGS: clear to auscultation bilaterally. ABDOMEN: soft, nontender. EXTREMITIES: no edema. PERIPHERAL PULSES: equal. NEUROLOGIC: No gross deficits, AAO X 3 Results Labs and Meds Result diagrams: 01/26/21 04:38 01/26/21 04:38 Lab results: Laboratory Results - last 24 hr 01/26/21 01/26/21 01/26/21 04:38 04:38 04:38 WBC 8.3 RBC 4.00 L Hgb 11.8 L Hct 36.3 L MCV 90.8 MCH 29.5 MCHC 32.5 RDW 12.6 Plt Count 318 MPV 10.0 Absolute Nucleated RBC 0.000 Nucleated RBC % (auto) 0.0 Sodium 136 Potassium 4.0 Chloride 101 Carbon Dioxide 27 Anion Gap 12 BUN 11 Creatinine 0.86 Estim Creat Clear Calc 136.2 Estimated GFR > 60 Fasting Glucose 115 H Calcium 9.5 Magnesium 1.7 B-Natriuretic Peptide 90 Progress Note: A&P Assessment and plan (1) Acute CHF (congestive heart failure): Status: Acute (2) Atrial fibrillation with rapid ventricular response: Status: Acute Assessment and Plan: 55-year-old gentleman with AFib with RVR and congestive heart failure. He has been diuresed but he still has some shortness of breath with sound more like obstructive sleep apnea. We will plan for doing PREM cardioversion on today. Keep NPO. He is on therapeutic dose of enoxaparin. He will need sleep study as outpatient. Thank you for allowing me to participate in the care of your patient. Please feel free to contact me if you have any questions. Fall Risk Details Current Medications: Current Medications Generic Name Dose Route Start Last Admin Trade Name Brandanq PRN Reason Stop Dose Admin Acetaminophen 650 mg 01/25/21 12:43 01/25/21 23:18 Acetaminophen 325 Mg Tablet PO 650 mg Q6H PRN Administration Pain, Moderate (Pain Scale 4-6 Diltiazem HCl 60 mg 01/24/21 13:00 01/26/21 09:49 Diltiazem Hcl 60 Mg Tablet PO 60 mg QID TIGIST Administration Protocol Enoxaparin Sodium 115 mg 01/24/21 22:00 01/26/21 09:49 Enoxaparin Sodium 120 Mg/0.8 Ml Syringe 1 mg/kg (115 mg) 115 mg SUBCUT Administration Q12H TIGIST Furosemide 40 mg 01/26/21 09:00 01/26/21 09:49 Furosemide 40 Mg Tablet PO 40 mg DAILY TIGIST Administration Protocol Diltiazem HCl 125 mg/ Sodium 125 mls @ 0 mls/hr 01/24/21 08:45 01/26/21 05:59 Chloride IVCONT 2.5 mg/hr .Q0M TIGIST 2.5 mls/hr Administration Protocol Per Protocol Medication 1 each 01/24/21 10:18 No Benzodiazepines MISCELLANE DAILY TIGIST Phenobarbital 60 mg 01/25/21 09:00 01/26/21 09:48 Phenobarbital 30 Mg Tablet PO 01/26/21 21:01 60 mg BID TIGIST Administration Protocol Phenobarbital 30 mg 01/27/21 09:00 Phenobarbital 30 Mg Tablet PO 01/28/21 21:01 BID TIGIST Protocol Phenobarbital 30 mg 01/29/21 09:00 Phenobarbital 30 Mg Tablet PO 01/30/21 09:01 DAILY TIGIST Protocol Sodium Chloride 3 ml 01/24/21 16:00 01/26/21 09:51 0.9 % Sodium Chloride Flush 3 Ml Syringe IVFLUSH Not Given QSHIFT FOR[facility], [facility] Time Spent With Patient Time: Total time spent is greater than 50% in coordination of care (as documented) at patient's floor/unit and/or counseling patient: Time with patient: 25 - 35 minutes Progress Note: Quality Stroke Does the patient have a stroke diagnosis?: No Procedures Date of Service Date of Service: 01/26/21
[2021-01-26] MEDS: Lactated Ringers 1,000 ML 50 ML IVCONT (13:19)
--- NOTE | 2021-01-26 13:55 | MHC.SHP ---
Pre-Procedural Eval Section A Date of Service: 01/26/21 The patient is an INPATIENT: Yes Section B Chief Complaint: AFIB Allergies: Allergies Allergy/AdvReac Type Severity Reaction Status Date / Time No Known Allergies Allergy Verified 01/24/21 09:17 Plan Diagnosis/Plan: Unchanged I have reviewed the history and physical and performed a pertinent physical examination on my patient. No changes have occurred unless specified.
[2021-01-26] MEDS: dilTIAZem HCL CD 240 MG CAP.ER.DEG PO (17:53)
[2021-01-26] MEDS: 0.9 % Sodium Chloride Flush 3 ML SYRINGE IVFLUSH (17:53)
[2021-01-26] MEDS: Apixaban 5 MG TABLET PO (20:33)
[2021-01-26] MEDS: Acetaminophen 325 MG TABLET 650 MG PO (20:37)
[2021-01-26] MEDS: Metoprolol Tartrate 5 MG/5 ML VIAL IVPUSH (21:31)
[2021-01-27] MEDS: 0.9 % Sodium Chloride Flush 3 ML SYRINGE IVFLUSH ×2 (00:23→08:42)
[2021-01-27 03:25] VITALS: BP 138/90; PULSE 110; RESP 18; TEMP 37; O2SAT 95
--- NOTE | 2021-01-27 03:45 | MHC.PIE ---
P.RAPID AFIB I.PT HR STAYING 120-130 AFIB,,BP 138/90. NOTIFIED.ORDER T0 START CARDIZEM DRIP GIVEN. MED BEING VERIFIED BY PHARMACY,PT'S HR DOWN TO 90'S AND OCC 80'S AFIB. NOTIFIED AGAIN AND STATES TO HOLD OFF ON CARDIZEM DRIP. E.CONT TO MONITOR.
[2021-01-27 07:36] VITALS: BP 149/76; PULSE 86; RESP 19; TEMP 37.2; O2SAT 96
[2021-01-27] MEDS: dilTIAZem HCL CD 240 MG CAP.ER.DEG PO (08:41)
[2021-01-27] MEDS: Apixaban 5 MG TABLET PO (08:41)
[2021-01-27] MEDS: Furosemide 40 MG TABLET PO (08:42)
--- NOTE | 2021-01-27 10:03 | P.CDIC_ITS ---
CDI Concurrent Query Service Date: 01/27/21 Documentation Clarification: Please clarify if you are treating a proba ble/suspected/likely or confirmed: Acute Systolic CHF Acute Diastolic and Systolic CHF CHF, ruled out Other, please specify Provider Response: Acute Diastolic CHF PLEASE DO NOT DELETE/MODIFY EXISTING CONTENT Additional information is needed in order to code to the highest accuracy and appropriate Severity of Illness (SOI). Please clarify the information noted below in your progress notes and discharge summary. Risk Factors/Clinical Indicators/Treatments Admit with shortness of breath, HR 150s BNP 240 CXR: mild CHF H&P: Acute CHF Per cardiology: clinically was thought to be in heart failure. Some of his symptoms sound like sleep apnea CDS: Diane Escalante RN Contact Number: [phone] Please Review the information above and exercise your independent professional judgment in responding to the query. If you concur, pleas document in the PROGRESS NOTES and DISCHARGE SUMMARY. If you do not agree with the query, please document in the query above. THIS QUERY IS PART OF THE PERMANENT MEDICAL RECORD
[2021-01-27 11:27] VITALS: BP 114/69; PULSE 97; RESP 18; TEMP 36.9; O2SAT 95
--- NOTE | 2021-01-27 11:49 | P.PNCA_ITS ---
Subjective Subjective Date of Service: 01/27/21 Interval history: Status post PREM yesterday which showed left atrial appendage thrombus. Cardioversion was not attempted. Denying any symptoms right now. Physical Exam Vital Signs: Last Vital Signs Temp 98.4 F 01/27/21 11:27 Pulse 97 01/27/21 11:27 Resp 18 01/27/21 11:27 BP 114/69 01/27/21 11:27 Pulse Ox 95 01/27/21 11:27 Body Mass Index 31.8 GENERAL APPEARANCE: in no acute distress, pleasant. SKIN: no suspicious lesions, warm and dry. HEART: no murmurs, irregular rate and rhythm. LUNGS: clear to auscultation bilaterally. ABDOMEN: soft, nontender. EXTREMITIES: no edema. PERIPHERAL PULSES: equal. NEUROLOGIC: No gross deficits, AAO X 3 Results Labs and Meds Result diagrams: 01/26/21 04:38 01/26/21 04:38 Progress Note: A&P Assessment and plan (1) Acute CHF (congestive heart failure): Status: Acute (2) Atrial fibrillation with rapid ventricular response: Status: Acute Assessment and Plan: 55-year-old gentleman who presented for AFib with RVR and congestive heart failure. He has been anticoagulated for atrial fibrillation. He underwent PREM to assess left atrial appendage but unfortunately he had left atrial appendage thrombus. We decided not to cardiovert due to stroke risk. He has been changed to Eliquis at this stage. He clinically has improved significantly. Continue the 40 mg p.o. b.i.d. Lasix. Continue diltiazem 240 mg once a day. Ambulate the patient to see how his heart rate control is. If his heart rate is below 120s with ambulation thank and discharged home with diltiazem and Eliquis. We will PREM him in the near future and reassess thrombus and then decide whether we should cardiovert him. In my opinion he should not stop Eliquis and should be anticoagulated mcfp. He did not develop any symptoms from atrial fibrillation (until he developed CHF) and can have silent AFib and thrombus formation again. Sleep study as OP. Complete abstinence from alcohol. Thank you for allowing me to participate in the care of your patient. Please f eel free to contact me if you have any questions. Fall Risk Details Current Medications: Current Medications Generic Name Dose Route Start Last Admin Trade Name Freq PRN Reason Stop Dose Admin Acetaminophen 650 mg 01/25/21 12:43 01/26/21 20:37 Acetaminophen 325 Mg Tablet PO 650 mg Q6H PRN Administration Pain, Moderate (Pain Scale 4-6 Apixaban 5 mg 01/26/21 21:00 01/27/21 08:41 Apixaban 5 Mg Tablet PO 5 mg BID TIGIST Administration Diltiazem HCl 240 mg 01/26/21 14:45 01/27/21 08:41 Diltiazem Hcl Cd 240 Mg Cap.Er.Deg PO 240 mg DAILY TIGIST Administration Protocol Furosemide 40 mg 01/26/21 09:00 01/27/21 08:42 Furosemide 40 Mg Tablet PO 40 mg DAILY TIGIST Administration Protocol Diltiazem HCl 125 mg/ Sodium 125 mls @ 0 mls/hr 01/27/21 04:15 Chloride IVCONT .Q0M TIGIST Protocol Per Protocol Sodium Chloride 3 ml 01/24/21 16:00 01/27/21 08:42 0.9 % Sodium Chloride Flush 3 Ml Syringe IVFLUSH 3 ml QSHIFT TIGIST Administration Time Spent With Patient Time: Total time spent is greater than 50% in coordination of care (as documented) at patient's floor/unit and/or counseling patient: Time with patient: 25 - 35 minutes Progress Note: Quality Stroke Does the patient have a stroke diagnosis?: No Procedures Date of Service Date of Service: 01/27/21
--- NOTE | 2021-01-27 12:28 | MHC.CM.PN ---
IMM 01/25/21 Male 55 DX AFIB. He is discharged home today. Family providing transportation.
--- NOTE | 2021-01-27 13:16 | PM.DS ---
DS: Providers Provider Date of Service: 01/27/21 Date of admission: 01/24/21 09:53 Primary care physician: Unknown Physician Consults: 01/24/21 09:52 Consult to Cardiology Routine Consulting Provider: Fabricio Chaudhary Reason for consultation: chf, new afib DS: Diagnosis Discharge Diagnosis (1) Acute CHF (congestive heart failure): Status: Acute (2) Atrial fibrillation with rapid ventricular response: Status: Acute (3) Alcohol dependence with uncomplicated withdrawal: Status: Acute (4) Alcoholic fatty liver: Status: Acute DS: Medications Discharge Medications Home Medications: Previous Rx's Medication Instructions Recorded apixaban [Eliquis] 5 mg PO BID #60 tab 01/27/21 diltiazem HCl 240 mg PO DAILY #30 cap 01/27/21 furosemide 40 mg PO DAILY 30 Days #30 tab 01/27/21 DS: Summary Hospital Course Hospital Course: Admission note HPI 55M Presented with shortness of breath and palpitations. Patient states that for last several months he has been having episodes paroxysmal nocturnal dyspnea associated with palpitations. He wakes up some in of the night short of breath clutches his chest, sits up and eventually starts to feel better and goes back to sleep. During the day he feels okay, does note orthopnea. On night of presentation, patient states that he had another similar episode and decided to finally come to the ER to figure out what is going on. Patient denies any medical history, is not on any medications at home. He is morbidly obese, he notices that he snores and sometimes stops breathing and on the night and his friends have told him that he probably has sleep apnea, he does drink alcohol daily, about 12 beers and 5-10 shots fire balls. In ED patient noted to be in atrial fibrillation with rapid ventricular response. Chest x-ray showed some mild CHF. He was started on diltiazem and given Lasix. Hospital course The patient was admitted to the hospital for treatment of new onset rapid atrial fibrillation. Rate controlled with Cardizem IV and p.o.. He was treated with therapeutic Lovenox for anticoagulation. Evaluated by Cardiology team as an echo showed within normal ejection fraction. PREM was consistent with intracardiac clot and cardioversion was not done. Recommendations to continue anticoagulation for the next 2 months and repeat PREM to see if the clot resolved by then. He might need anticoagulation for the rest of his life as he did not feel the palpitations or the irregularity in his heart and he developed a clot at that same time which increases the risk significantly for having a major stroke. Noted to have fluid overload managed with IV Lasix with good response. To be discharged on p.o. Lasix at home. Treated with phenobarbital protocol for alcohol withdrawal. Advised to quit alcohol completely and he agrees on that. Advised to follow-up with Sleep Clinic for evaluation of possible underlying sleep apnea disorder. To follow up with Cardiology as outpatient. Time Spent with Patient Time attestation: Total time spent providing and/or coordinating discharge services: Discharge coordination time: Greater than 30 minutes Quality: Stroke Does the patient have a stroke diagnosis?: No Physical Exam Vital Signs: Vital Signs: Last Vital Signs Temp 98.4 F 01/27/21 11:27 Pulse 97 01/27/21 11:27 Resp 18 01/27/21 11:27 BP 114/69 01/27/21 11:27 Pulse Ox 95 01/27/21 11:27 Body Mass Index 31.8 Const: Other: Constitutional : Alert, oriented, not in distress Neck : Normal inspection, Supple Cardiovascular : Irregular irregular rhythm, S1 S2, no lower extremity edema Respiratory : Good bilateral air entry, no crackles, wheezes or rhonchi Gastrointestinal: soft, lax, Normal bowel sounds, Non tender Skin : Warm/Dry, No rash Neurological : Alert & oriented x3, No focal deficit Discharge Plan Discharge Patient Disposition: Home, Self-Care Discharge Diagnosis: New onset atrial fibrillation Alcohol dependence Suspected sleep apnea Referrals: Physician,Unknown [Primary Care Provider] - 1 Week Discharge Medications: New Eliquis 5 mg Tablet 5 mg PO BID Qty: 60 RF: 2 furosemide 40 mg Tablet 40 mg PO DAILY 30 Days Qty: 30 RF: 2 diltiazem HCl 240 mg Capsule,Extended Release 24hr 240 mg PO DAILY Qty: 30 RF: 2 Discharge Orders: Discharge Order (Routine); Ordered 01/27/21 Ordered By: Magda Benedict Diet: advance to usual diet and low salt diet Activity on Discharge: As tolerated Stand Alone Forms: Patient Portal Discharge page Care Plan Goals: Read below Health Concerns: Read below Plan of Treatment: You were admitted to the hospital for evaluation of difficulty breathing. Found to be in irregular heart rhythm called atrial fibrillation with heart failure. Treated with IV rate controlled medications and evaluated by Cardiology team who did an echo. Your heart rate responded well to the treatment and her rate was controlled. A clot was found in your heart to be treated with blood thinners. You were also managed for history of alcohol abuse with phenobarbital treatment. Assessment: We advise you complete abstinence from alcohol Start Cardizem 240 daily Start Eliquis 5 mg b.i.d. Start Lasix 40 mg daily to follow up with Cardiology as outpatient You need to follow-up as outpatient to do a sleep study to rule out any obstructive sleep apnea disorder.
--- NOTE | 2021-01-27 15:00 | HO.POSTANES ---
Post Anesthesia Evaluation Post Anesthesia Evaluation Vital Signs: Vital Signs Temp Pulse Resp BP Pulse Ox 01/27/21 11:27 98.4 F 97 18 114/69 95 01/27/21 07:36 98.9 F 86 19 149/76 H 96 01/27/21 03:25 98.6 F 110 H 18 138/90 H 95 Anesthesia: Monitored Mental Status: Awake Pain Control: Satisfactory Nausea/Vomiting: None Hydration: Adequate Anesthesia-Related Issues: No Anes. Related Issues
== END 2021-01-27 14:48 | disposition home or self-care (01) | DRG 308 ==
LOC: HO.ED 09:26 → HO.EDOVER 10:28 → HO.IMC 23:54
PROVIDERS: Internal Medicine Cardiovascular Disease; Admitting Provider Internal Medicine; Emergency Provider Emergency Medicine; Visit Provider Student in an Organized Health Care Education/Training Program
DX: I48.91 Unspecified atrial fibrillation (principal); I50.31 Acute diastolic (congestive) heart failure; F10.239 Alcohol dependence with withdrawal, unspecified; I23.6 Thrombosis of atrium, auricular appendage, and ventricle as current complications following acute myocardial infarction; I11.0 Hypertensive heart disease with heart failure; K70.0 Alcoholic fatty liver; Z20.822 Contact with and (suspected) exposure to COVID-19; Z79.899 Other long term (current) drug therapy
CPT/HCPCS: 36415; 71045; 80048; 80061; 80076; 81003; 83036; 83690; 83735; 83880; 84484; 85025; 85027; 87635; 92960; 93005; 93306; 93312; 99285; J1650; J1940; J2560

== ENCOUNTER → 2021-02-23 13:32 | Outpatient (BNVA) | payer MEDICARE, MEDICAID, SELFPAY | PROVIDERS: Visit Provider Nurse Practitioner Family | DX: I48.91 Unspecified atrial fibrillation (principal); I11.0 Hypertensive heart disease with heart failure; I50.30 Unspecified diastolic (congestive) heart failure; I51.3 Intracardiac thrombosis, not elsewhere classified; F10.10 Alcohol abuse, uncomplicated; G47.10 Hypersomnia, unspecified | CPT/HCPCS: 93005; 99212 ==

== ENCOUNTER → 2021-03-04 09:56 | Outpatient (REF) | payer MEDICARE, MEDICAID, SELFPAY | LOC: HO.SL 09:56 | PROVIDERS: Visit Provider Nurse Practitioner Family | DX: G47.10 Hypersomnia, unspecified (principal); F10.10 Alcohol abuse, uncomplicated; I50.30 Unspecified diastolic (congestive) heart failure | CPT/HCPCS: 95806 ==

== ENCOUNTER → 2021-03-04 10:08 | Outpatient (REF) | payer MEDICARE, MEDICAID, SELFPAY ==
--- NOTE | 2021-03-04 10:20 | HM_ITS ---
Total monitoring time 3 days and 22 hours. Underlying rhythm is atrial fibrillation. Minimum heart rate 75/Min. Average 136/Min. Maximum 199/Min. 100% the time, rhythm is atrial fibrillation. 85% of the time, rate greater than 100/min. PVC burden is about 3% with 3 morphologies. Longest run is 6 beats. Cannot exclude aberrant conduction. No patient events. MTDD
== END ==
LOC: HO.CARD 10:08
PROVIDERS: Visit Provider Nurse Practitioner Family
DX: I48.91 Unspecified atrial fibrillation (principal); I50.30 Unspecified diastolic (congestive) heart failure; F10.10 Alcohol abuse, uncomplicated
CPT/HCPCS: 93225; 93242

== ENCOUNTER → 2021-03-30 09:44 | Outpatient (BNVA) | payer MEDICARE, MEDICAID, SELFPAY | PROVIDERS: Visit Provider Nurse Practitioner Family ==

== ENCOUNTER → 2021-04-20 09:14 | Outpatient (BNVA) | payer MEDICARE, MEDICAID, SELFPAY | PROVIDERS: Visit Provider Internal Medicine | DX: G47.33 Obstructive sleep apnea (adult) (pediatric) (principal); E66.9 Obesity, unspecified | CPT/HCPCS: 99202; 99212 ==

== ENCOUNTER 2021-05-04 07:43 | Day surgery (SDC) | payer MEDICARE, MEDICAID, SELFPAY ==
[2021-04-28 12:41] VITALS: BMI 35.5
--- NOTE | 2021-05-03 09:17 | P.CONAN_ITS ---
Documented by User: Tiffani Mujica NP 05/03/21 09:25 HPI - Anesthesia Eval Consult details Narrative: 55yo M for Transesophageal Echo and Cardioversion s/p PREM and Cardioversion 01/2021 with MAC *Per OR Report, pt developed respiratory distress/laryngospasm and case was stopped* Eliquis for afib [facility] Active Problems Active Problems: All Active Problems (Updated 04/28/21 @ 12:34 by Taryn Damon RN) Alcoholic fatty liver (Acute) Hypersomnia (Acute) Thrombus of left atrial appendage (Acute) Obstructive sleep apnea (Acute) Obesity (Acute) PAF (paroxysmal atrial fibrillation) (Acute) Morbid obesity (Acute) Acute diastolic (congestive) heart failure (Acute) Alcohol abuse (Acute) HTN (hypertension) (Acute) (HFpEF) heart failure with preserved ejection fraction (Acute) Atrial fibrillation (Acute) Past Medical History Medical History (Updated 04/28/21 @ 12:34 by Taryn Damon RN) (HFpEF) heart failure with preserved ejection fraction Alcohol abuse Atrial fibrillation HTN (hypertension) Sleep apnea Family History Family History Other Diabetes mellitus Surgical History Surgical History S/P hip replacement Status post ORIF of fracture of ankle Social History Social History Household Members: Significant Other and Children Household Members Other:: Girlfriend and daughter Housing: House Do you presently have visiting nurse or other home services: No Alcohol intake: current Alcohol intake frequency: a few times a week Patient Tobacco Use Status: Never used Tobacco Use of substances other than those prescribed or required for medical reasons: Yes Substance Use Type: Marijuana Substance Use Frequency: Daily Are you DNR?: No Advance Directives: Yes Advance Directives Information Provided: Yes Advance Directives on File: Yes Advance Directives Date on File: 01/25/21 Recently lost weight without trying: No Eating poorly because of decreased appetite: No Nutrition Risks: No Nutritional Risk Poor oral hygiene: No service: No Current occupational status: unemployed Meds Allergies Allergy/AdvReac Type Severity Reaction Status Date / Time No Known Allergies Allergy Verified 05/04/21 07:56 Exam Exam Date and Time: May 03, 2021 0917 Height,Weight and Vital Signs: Height 6 ft 3 in Weight 128.9 kg Pertinent Lab Results Pertinent Lab Results: Laboratory Tests 01/26/21 01/26/21 04:38 04:38 WBC 8.3 Hgb 11.8 L Hct 36.3 L Plt Count 318 Sodium 136 Potassium 4.0 Chloride 101 Carbon Dioxide 27 BUN 11 Creatinine 0.86 Narrative Narrative: PREM 01/2021 Conclusion: ??? Thrombus noted in the left atrium appendage and we decided not to perform cardioversion.? Patient developed laryngospasm and respiratory distress and we decided to stop.? 3 day holter 02/2021 Total monitoring time 3 days and 22 hours.? Underlying rhythm is atrial fibrillation.? Minimum heart rate 75/Min.? Average 136/Min.? Maximum 199/Min.? 100% the time, rhythm is atrial fibrillation.? 85% of the time, rate greater than 100/min. PVC burden is about 3% with 3 morphologies.? Longest run is 6 beats.? Cannot exclude aberrant conduction.? No patient events. EKG afib, RVR, rate 106, QTc 480ms Assessment and Plan Assessment Anesthesia Assessment: Chart Reviewed Documented by User: Marlin Campbell MD 05/04/21 08:14 [facility] Past Medical History Medical History (Updated 04/28/21 @ 12:34 by Taryn Damon RN) (HFpEF) heart failure with preserved ejection fraction Alcohol abuse Atrial fibrillation HTN (hypertension) Sleep apnea Functional capacity: independent ambulation Family History Family History Other Diabetes mellitus Family history of problems with anesthesia: No Surgical History Surgical History S/P hip replacement Status post ORIF of fracture of ankle History of Problems with Anesthesia: No Social History Social History Household Members: Significant Other and Children Household Members Other:: Girlfriend and daughter Housing: House Do you presently have visiting nurse or other home services: No Alcohol intake: current Alcohol intake frequency: a few times a week Patient Tobacco Use Status: Never used Tobacco Use of substances other than those prescribed or required for medical reasons: Yes Substance Use Type: Marijuana Substance Use Frequency: Daily Are you DNR?: No Advance Directives: Yes Advance Directives Information Provided: Yes Advance Directives on File: Yes Advance Directives Date on File: 01/25/21 Recently lost weight without trying: No Eating poorly because of decreased appetite: No Nutrition Risks: No Nutritional Risk Poor oral hygiene: No service: No Current occupational status: unemployed Meds Allergies Allergy/AdvReac Type Severity Reaction Status Date / Time No Known Allergies Allergy Verified 05/04/21 07:56 Exam Airway Mallampati Class: II TM Dist: >3cm Neck ROM: Full Heart: Irreg Lungs: CTA Assessment and Plan Final Anesthetic Review Family History of Problems with Anesthesia: No History of Problems with Anesthesia: No
[2021-05-04] VITALS (13 sets, daily range): BP systolic 110–141; BP diastolic 83–106; PULSE 84–166; RESP 16–18; TEMP 36.1–36.2; O2SAT 95–98
--- NOTE | 2021-05-04 07:47 | CA_ITS ---
Transesophageal Echocardiogram Patient (Last, First, Middle): Nitesh Osorio, Gender: Male Date of : 1965 Age: 55 Procedure Date: 05/04/2021 Procedure Type: Transesophageal Echocardiogram Location: OP Height: 167.64 cm Weight: kg Artificial Plastic Eye Maker: HILDA Referring MD: Fabricio Chaudhary MD Symptoms: I48.0 - Paroxysmal atrial fibrillation Conclusion: ??? There is no evidence of a thrombus in the left atrial appendage. Findings Procedure Information The quality of the study was good. Consent was obtained prior to the procedure. The adult 3D probe was passed with no difficulty. Left Ventricle Normal left ventricular cavity size. Due to rapid rate, unable to assess LVEF. Possibly moderately reduced. Atria There is no evidence of a thrombus in the left atrial appendage. There is no evidence of interatrial shunt by color Doppler. Likely artifact at mouth of appendage. Diminished velocities by pulse doppler. Aortic Valve There is a normal trileaflet aortic valve. There is no aortic valve stenosis. Mitral Valve The mitral valve appears normal. There is trace mitral valve regurgitation. There is no mitral valve stenosis. Pulmonic Valve The pulmonic valve was not well visualized. Tricuspid Valve There is mild to moderate tricuspid valve regurgitation. Great Vessels The asc aorta is normal in size. Pericardium/Pleural There is a trivial pericardial effusion. Prior Study Comparison Changes noted compared to prior study dated: 01/26/2021. Measurements Great Vessels Aorta Ao Asc: 3.60 2.1-3.4 cm Updated by Fabricio Chaudhary on 05:13 PM with Status of Final Fabricio Chaudhary MD electronically signed on 05/04/2021 5:13:45 PM with status of Final
[2021-05-04] MEDS: Apixaban 5 MG TABLET PO (08:22)
[2021-05-04] MEDS: Lactated Ringers 1,000 ML 100 ML IVCONT (08:22)
--- NOTE | 2021-05-04 08:28 | MHC.SHP ---
Pre-Procedural Eval Section A Date of Service: 05/04/21 The patient is an INPATIENT: No Section B Chief Complaint: afib Allergies: Allergies Allergy/AdvReac Type Severity Reaction Status Date / Time No Known Allergies Allergy Verified 05/04/21 07:56 Plan I have reviewed the history and physical and performed a pertinent physical examination on my patient. No changes have occurred unless specified.
--- NOTE | 2021-05-04 08:32 | PC.NURSE ---
Patient did not take Eliquis 5mg this AM as he normally does. Patient however does state he has been compliant with taking medication BID. Dr. Chaudhary notified. New order for Eliquis 5mg PO once now. Order faxed to pharmacy.
--- NOTE | 2021-05-04 09:14 | ECG_ITS ---
Test Reason : post cardioversion Blood Pressure : / mmHG Vent. Rate : 085 BPM Atrial Rate : 085 BPM P-R Int : 158 ms QRS Dur : 082 ms QT Int : 380 ms P-R-T Axes : 054 -06 027 degrees QTc Int : 452 ms Normal sinus rhythm Normal ECG Normal sinus rhythm has replaced Atrial fibrillation Referred By: Fabricio Chaudhary Electronically Signed By:FIORELLA DIXON MD
[2021-05-04] MEDS: Amiodarone HCL 200 MG TABLET 400 MG PO (09:48)
[2021-05-04] MEDS: dilTIAZem HCL 50 MG/10 ML VIAL 10 MG IVPUSH (10:06)
--- NOTE | 2021-05-04 12:03 | P.PNCAR_ITS ---
Cardioversion Procedure Note Cardioversion Date of Procedure: 05/04/2021 Ordering Provider: Shanthi Chaudhary Performing Provider: Same as above Indication for Procedure: Atrial fibrillation with rapid ventricular rate Pre-Op Diagnosis: Atrial fibrillation with rapid ventricular rate Post-Op Diagnosis: Sinus rhythm PREM findings (if PREM Performed): Reported separately History: Atrial fibrillation with rapid rate in spite of rate control medications. Consent: Informed consent obtained. Procedure: After informed consent was obtained, patient was taken to the OR. The patient was then positioned appropriately. PREM initially performed and reported separately. Cardioversion pads were placed in anteroposterior position. Once under anesthesia, 120 joules of synchronized shock was administered. The rhythm converted from atrial fibrillation to sinus rhythm. Patient remained in sinus rhythm after the end of procedure. Complications: None Impression: He initially converted to sinus rhythm but while in PACU, went back into atrial fibrillation. We will load him with amiodarone and likely re- attempt cardioversion in 2-3 weeks. Recommendations: Above. Repeat cardioversion.
== END 2021-05-04 11:22 | disposition home or self-care (01) ==
PROVIDERS: Visit Provider Internal Medicine
DX: I48.20 Chronic atrial fibrillation, unspecified (principal); I11.0 Hypertensive heart disease with heart failure; I50.31 Acute diastolic (congestive) heart failure; Z79.01 Long term (current) use of anticoagulants; G47.33 Obstructive sleep apnea (adult) (pediatric); E66.01 Morbid (severe) obesity due to excess calories; Z68.35 Body mass index [BMI] 35.0-35.9, adult; F10.10 Alcohol abuse, uncomplicated; Z79.899 Other long term (current) drug therapy
CPT/HCPCS: 92960; 93005; 93312; J1100; J2250; J3010

== ENCOUNTER → 2021-05-07 10:01 | Outpatient (BNVA) | payer MEDICARE, MEDICAID, SELFPAY | PROVIDERS: Visit Provider Internal Medicine | DX: I48.91 Unspecified atrial fibrillation (principal); I49.3 Ventricular premature depolarization; Q24.8 Other specified congenital malformations of heart; R94.31 Abnormal electrocardiogram [ECG] [EKG] | CPT/HCPCS: 93005 ==

== ENCOUNTER 2021-05-17 03:32 | Inpatient (IN) | payer MEDICARE, MEDICAID, SELFPAY ==
[2021-05-17] VITALS (11 sets, daily range): BP systolic 119–163; BP diastolic 79–110; PULSE 62–109; RESP 12–20; TEMP 36.3–37.1; O2SAT 92–100; BMI 35.6; BMI 35.4
--- NOTE | 2021-05-17 | ECG_ITS ---
Test Reason : SOB Blood Pressure : / mmHG Vent. Rate : 087 BPM Atrial Rate : 000 BPM P-R Int : 000 ms QRS Dur : 080 ms QT Int : 398 ms P-R-T Axes : 000 -04 020 degrees QTc Int : 478 ms Atrial fibrillation with premature ventricular or aberrantly conducted complexes Abnormal ECG Atrial fibrillation has replaced Normal sinus rhythm Premature ventricular complexes are new Referred By: Generic ED Physician Electronically Signed By:FIORELLA DIXON MD
--- NOTE | ~2021-05-17 | XR_ITS ---
EXAMINATION: XR CHEST CLINICAL INFORMATION: Shortness of breath COMPARISON: 01/24/2021 TECHNIQUE: Frontal view of the chest was obtained. FINDINGS: Lung volumes are symmetric. No focal consolidation is seen. Somewhat coarsened appearance of the interstitium is similar to slightly decreased from prior. No evidence of pneumothorax or significant pleural effusion. Cardiac silhouette appears near the upper limits of normal in size. No acute osseous findings are seen. XR/XR chest 1V IMPRESSION: No acute cardiopulmonary findings.
--- NOTE | 2021-05-17 04:03 | ED.SOB ---
HPI - SOB/Dyspnea General Chief Complaint: Dyspnea Stated Complaint: Difficulty breathing Time Seen by Provider: 05/17/21 04:03 Source: patient Mode of arrival: ambulatory History of Present Illness HPI Narrative: This is a 55-year-old male with history of paroxysmal atrial fibrillation, FARHEEN and CHF who presents with onset of shortness of breath just prior to arrival and at that time had a transient episode of sharp mid left chest pain that was non radiating and then subsided and patient states he is currently chest pain free and denies any associated dizziness, diaphoresis, nausea with that pain. Patient states that he watch the football game this evening and at that time had 3 beers and then attempted to go to sleep but was having some difficulty. Related Data Previous Rx's Medication Instructions Recorded apixaban 5 mg tablet (Eliquis) 5 mg PO BID #60 tab 01/27/21 furosemide 40 mg tablet 40 mg PO DAILY 30 Days #30 tab 01/27/21 amiodarone 200 mg tablet 200 mg PO DAILY #90 tab 05/04/21 amiodarone 400 mg tablet 400 mg PO BID #28 tab 05/04/21 metoprolol succinate 100 mg 100 mg PO DAILY #30 tab 05/04/21 tablet,extended release 24 hr (Toprol XL) Allergies Allergy/AdvReac Type Severity Reaction Status Date / Time No Known Allergies Allergy Verified 05/04/21 07:56 Review of Systems Review of Systems: Pertinent positives and negatives as stated in HPI 10 point review of systems is otherwise negative. [facility] Past Medical History Source: nursing notes reviewed Medical History (HFpEF) heart failure with preserved ejection fraction Alcohol abuse Atrial fibrillation HTN (hypertension) Sleep apnea Surgical History S/P hip replacement Status post ORIF of fracture of ankle Family History Family History Other Diabetes mellitus Social History Social History Household Members: Significant Other and Children Household Members Other:: Girlfriend and daughter Housing: House Do you presently have visiting nurse or other home services: No Alcohol intake: current Alcohol intake frequency: a few times a week Alcohol type: beer Patient Tobacco Use Status: Never used Tobacco Use of substances other than those prescribed or required for medical reasons: Yes Substance Use Type: Marijuana Substance Use Frequency: Occasionally Advance Directives: Yes Advance Directives on File: Yes Advance Directives Date on File: 01/25/21 service: No Current occupational status: unemployed Physical Exam Vital Signs: Vital Signs: Last Vital Signs Temp 98.2 F 05/17/21 03:38 Pulse 90 05/17/21 05:09 Resp 14 05/17/21 05:09 BP 160/107 H 05/17/21 05:09 Pulse Ox 99 05/17/21 05:09 Body Mass Index 35.6 VITAL SIGNS: Reviewed. GENERAL: Well developed, well nourished, in no acute distress. HEAD: Normocephalic/atraumatic EYES: PERRLA, EOMI OROPHARYNX: no oral lesions noted, posterior pharynx clear NECK: Supple, no adenopathy LUNGS: Normal breath sounds, no rales/rhonchi appreciated. SpO2<98> CARDIOVASCULAR: IRR rate and rhythm without noted murmurs, no JVD or lower extremity edema. ABDOMEN: Soft, non-tender, non-distended with bowel sounds. MUSCULOSKELETAL: No tenderness, deformities, or effusions noted on gross inspection. EXTREMITIES: No cyanosis, clubbing or edema. SKIN: Inspection of the skin reveals no rashes NEUROLOGIC: Alert and oriented x 4. Strength and sensation to light touch were grossly intact x 4. Course Course Course Narrative: 55-year-old male with history and clinical presentation consistent with shortness of breath likely secondary to FARHEEN, currently chest pain-free without acute changes on EKG. Review of all investigations consistent with CHF exacerbation likely multifactorial. Although there is not a concomitant SAUL the a creatinine is noted to be bumped when compared to prior. This case was discussed with the inpatient hospitalist who accepts admission. MDM - SOB/Dyspnea Lab Data Result diagrams: 05/17/21 04:15 05/17/21 04:15 Labs: Lab Results 05/17/21 05/17/21 05/17/21 Range/Units 04:15 04:15 04:15 WBC 7.7 (4.8-10.8) X10*3/uL RBC 4.26 L (4.60-5.80) X10*6/uL Hgb 12.3 L (14.0-18.0) g/dl Hct 38.1 L (42.0-52.0) % MCV 89.4 (80.0-98.0) fL MCH 28.9 (27.0-33.0) pg MCHC 32.3 (31.0-36.0) g/dl RDW 13.3 (11.0-16.0) % Plt Count 277 (160-400) X10*3/uL MPV 9.8 (9.4-12.4) fL Immature Gran % (Auto) 0.3 (0.0-0.4) % Neut % (Auto) 65.3 (45-73) % Lymph % (Auto) 22.8 (20-40) % [place] % (Auto) 10.4 (2-11) % Eos % (Auto) 0.5 (0-4) % Baso % (Auto) 0.7 (0-2) % Lymph # (Auto) 1.8 (1.2-4.9) X10*3/uL [place] # (Auto) 0.8 (0.1-1.2) X10*3/uL Eos # (Auto) 0.0 (0.0-0.4) X10*3/uL Baso # (Auto) 0.1 (0.0-0.2) X10*3/uL Abs Immat Gran (auto) 0.02 (0.00-0.03) X10*3/uL Absolute Neuts (auto) 5.03 (2.0-8.3) x10*3/uL Absolute Nucleated RBC 0.000 (0.0-0.012) X10*3/uL Nucleated RBC % (auto) 0.0 (0.0-0.2) /100WBC PT 13.8 H (9.9-13.0) SEC INR 1.2 H (0.9-1.1) Sodium 139 (135-145) mmol/L Potassium 4.0 (3.3-5.1) mmol/L Chloride 103 (96-108) mmol/L Carbon Dioxide 27 (22-29) mmol/L Anion Gap 13 (12-20) BUN 10 (9-16) mg/dL Creatinine 1.04 (0.5-1.4) mg/dL Estim Creat Clear Calc 118.9 Estimated GFR > 60 Random Glucose 89 (60-115) mg/dL Calcium 9.2 (8.4-10.2) mg/dL Total Bilirubin 1.2 H (0.0-1.0) mg/dL AST 23 D (5-37) U/L ALT 16 (0-40) U/L Alkaline Phosphatase 115 (39-117) U/L Troponin I High Sens (<3.5-35.0) ng/L B-Natriuretic Peptide (<100) pg/mL Total Protein 6.7 (6.5-8.0) g/dL Albumin 3.7 (3.5-5.0) g/dL Lipase 9 (8-78) U/L 05/17/21 Range/Units 04:15 WBC (4.8-10.8) X10*3/uL RBC (4.60-5.80) X10*6/uL Hgb (14.0-18.0) g/dl Hct (42.0-52.0) % MCV (80.0-98.0) fL MCH (27.0-33.0) pg MCHC (31.0-36.0) g/dl RDW (11.0-16.0) % Plt Count (160-400) X10*3/uL MPV (9.4-12.4) fL Immature Gran % (Auto) (0.0-0.4) % Neut % (Auto) (45-73) % Lymph % (Auto) (20-40) % [place] % (Auto) (2-11) % Eos % (Auto) (0-4) % Baso % (Auto) (0-2) % Lymph # (Auto) (1.2-4.9) X10*3/uL [place] # (Auto) (0.1-1.2) X10*3/uL Eos # (Auto) (0.0-0.4) X10*3/uL Baso # (Auto) (0.0-0.2) X10*3/uL Abs Immat Gran (auto) (0.00-0.03) X10*3/uL Absolute Neuts (auto) (2.0-8.3) x10*3/uL Absolute Nucleated RBC (0.0-0.012) X10*3/uL Nucleated RBC % (auto) (0.0-0.2) /100WBC PT (9.9-13.0) SEC INR (0.9-1.1) Sodium (135-145) mmol/L Potassium (3.3-5.1) mmol/L Chloride (96-108) mmol/L Carbon Dioxide (22-29) mmol/L Anion Gap (12-20) BUN (9-16) mg/dL Creatinine (0.5-1.4) mg/dL Estim Creat Clear Calc Estimated GFR Random Glucose (60-115) mg/dL Calcium (8.4-10.2) mg/dL Total Bilirubin (0.0-1.0) mg/dL AST (5-37) U/L ALT (0-40) U/L Alkaline Phosphatase (39-117) U/L Troponin I High Sens < 3.5 D (<3.5-35.0) ng/L B-Natriuretic Peptide 636 H (<100) pg/mL Total Protein (6.5-8.0) g/dL Albumin (3.5-5.0) g/dL Lipase (8-78) U/L ECG Data Attestation: I personally reviewed and interpreted this ECG as follows: Prior ECG tracings: available for review (05/04/2021 patient is now in atrial fibrillation.) Interpretation: Atrial fibrillation, HR-87, no STEMI, QRS/QTC are within normal limits. Discharge Plan Discharge Clinical Impression: CHF exacerbation, Atrial fibrillation Patient Disposition: Admitted As Inpatient
[2021-05-17 04:19] LABS: MANUAL DIFF FLAG NO
[2021-05-17 04:21] LABS: Basophils Absolute Auto 0.1 X10*3/uL (0.0-0.2); Basophils Percent Auto 0.7 % (0-2); Eosinophils Percent Auto 0.5 % (0-4); Hematocrit 38.1 % (42.0-52.0); Hemoglobin 12.3 g/dl (14.0-18.0); Imm Gran Abs Auto 0.02 X10*3/uL (0.00-0.03); Imm Gran Pct Auto 0.3 % (0.0-0.4); Lymphocytes Absolute Auto 1.8 X10*3/uL (1.2-4.9); Lymphocytes Percent Auto 22.8 % (20-40); Mean Corpuscular HGB Conc 32.3 g/dl (31.0-36.0); Mean Corpuscular Hemoglobin 28.9 pg (27.0-33.0); Mean Corpuscular Volume 89.4 fL (80.0-98.0); Mean Platelet Volume 9.8 fL (9.4-12.4); Monocytes Absolute Auto 0.8 X10*3/uL (0.1-1.2); Monocytes Percent Auto 10.4 % (2-11); Neutrophils Absolute Auto 5.03 x10*3/uL (2.0-8.3); Neutrophils Percent Auto 65.3 % (45-73); Platelet Count 277 X10*3/uL (160-400); Red Blood Count 4.26 X10*6/uL (4.60-5.80); Red Cell Distribution Width 13.3 % (11.0-16.0); White Blood Count 7.7 X10*3/uL (4.8-10.8)
[2021-05-17 04:29] LABS: INTERNATIONAL NORM RATIO 1.2 (0.9-1.1); Prothrombin Time 13.8 SEC (9.9-13.0)
[2021-05-17 04:40] LABS: B Type Natriuretic Peptide 636 pg/mL (<100); Troponin-I High Sensitivity < 3.5 ng/L (<3.5-35.0)
[2021-05-17 04:41] LABS: Alanine Aminotransferase 16 U/L (0-40); Albumin Level 3.7 g/dL (3.5-5.0); Alkaline Phosphatase 115 U/L (39-117); Anion Gap 13 (12-20); Aspartate Amino Transferase 23 U/L (5-37); Bilirubin Total 1.2 mg/dL (0.0-1.0); Blood Urea Nitrogen 10 mg/dL (9-16); Calcium 9.2 mg/dL (8.4-10.2); Carbon Dioxide 27 mmol/L (22-29); Chloride 103 mmol/L (96-108); Creatinine Clr Calc Pharmacy 118.9; Estimated Glomerular Filt Rate > 60; Glucose Random 89 mg/dL (60-115); Lipase 9 U/L (8-78); Sodium 139 mmol/L (135-145); Total Protein 6.7 g/dL (6.5-8.0)
--- NOTE | 2021-05-17 04:45 | PC.NURSE ---
BP 149/108 notified
--- NOTE | 2021-05-17 04:54 | PC.NURSE ---
pt alert and oriented x4. ambulated independently to room, gait steady but pt SOB while ambulating. pt arrives to ED with c/o SOB that started tonight. states he was having L sided chest pain after SOB started but chest pain has now resolved. pt states he has been admitted to [facility] in the past for a similar SOB episode. pt has pitting edema on lower left extremity. pedal pulses palpable bilaterally. this nurse asked pt if his left leg is always swollen and pt stated no but I broke that ankle when I was 20 so it sometimes gives me problems. pt lung sounds clear bilaterally in all escalante. pt currently resting in bed in semi fowlers in no apparent distress. respirations are even and unlabored at this time. call webber in reach.
--- NOTE | 2021-05-17 05:05 | PC.NURSE ---
aware of pt BP no new orders at this time
[2021-05-17] MEDS: Furosemide 100 MG/10 ML VIAL 60 MG IVPUSH (05:12)
--- NOTE | 2021-05-17 05:17 | PC.NURSE ---
pt medicated with Lasix per MAR bedside urinal given to pt
--- NOTE | 2021-05-17 05:23 | PM.IMHP ---
History of Present Illness Date of Service: 05/17/21 Chief Complaint: Shortness of breath 55-year-old male with a past medical history of hypertension, hyperlipidemia, AFib Eliquis, amiodarone recent cardioversion, diastolic CHF on Lasix presented to the hospital today with a chief complaint of shortness of breath. Patient reported that he was having on-call his friends and followed by developed shortness of breath; denies any associated chest pain lightheadedness or dizziness. This shortness of breath was worsening with exertion. Decided to come to the ER for evaluation. Patient denies any urinary symptoms. Denies any GI symptoms. Denies any fevers cough or production. Review of all other systems is negative except mentioned above ER course: Per ER team patient noted to be short of breath; exam fairly benign; no pedal edema; EKG shows AFib; lab showed proBNP elevated from 90 before to 600; concern for CHF. Given Lasix. Admitted further management. [facility] Medical History (HFpEF) heart failure with preserved ejection fraction Alcohol abuse Atrial fibrillation HTN (hypertension) Sleep apnea Family History Other Diabetes mellitus Pertinent family history: as above Surgical History S/P hip replacement Status post ORIF of fracture of ankle Social History Household Members: Significant Other and Children Household Members Other:: Girlfriend and daughter Housing: House Do you presently have visiting nurse or other home services: No Alcohol intake: current Alcohol intake frequency: a few times a week Alcohol type: beer Patient Tobacco Use Status: Never used Tobacco Use of substances other than those prescribed or required for medical reasons: Yes Substance Use Type: Marijuana Substance Use Frequency: Occasionally Advance Directives: Yes Advance Directives on File: Yes Advance Directives Date on File: 01/25/21 service: No Current occupational status: unemployed Meds Allergies Allergy/AdvReac Type Severity Reaction Status Date / Time No Known Allergies Allergy Verified 05/04/21 07:56 Physical Exam Vital Signs and Narrative: Vital Signs: Last Vital Signs Temp 98.2 F 05/17/21 03:38 Pulse 90 05/17/21 05:09 Resp 14 05/17/21 05:09 BP 160/107 H 05/17/21 05:09 Pulse Ox 99 05/17/21 05:09 Body Mass Index 35.6 Gen: Appears be in no acute distress HEENT: NCAT, Moist mucosa. Pulmonary: Vesicular breath sounds, fair air entry CVS: Normal S1-S2 Abdomen: BS+, Soft, Nontender Extremities: Warm well perfused; trace pedal edema Neuro: Alert and awake. Results Labs CBC and Chem 7: 05/17/21 04:15 05/17/21 04:15 Labs: Laboratory Results - last 24 hr 05/17/21 05/17/21 05/17/21 04:15 04:15 04:15 MCV 89.4 MCH 28.9 MCHC 32.3 RDW 13.3 Plt Count 277 MPV 9.8 Immature Gran % (Auto) 0.3 Neut % (Auto) 65.3 Lymph % (Auto) 22.8 [place] % (Auto) 10.4 Eos % (Auto) 0.5 Baso % (Auto) 0.7 Lymph # (Auto) 1.8 [place] # (Auto) 0.8 Eos # (Auto) 0.0 Baso # (Auto) 0.1 Abs Immat Gran (auto) 0.02 Absolute Neuts (auto) 5.03 Absolute Nucleated RBC 0.000 Nucleated RBC % (auto) 0.0 PT 13.8 H INR 1.2 H Anion Gap 13 Estim Creat Clear Calc 118.9 Estimated GFR > 60 Random Glucose 89 Calcium 9.2 Total Bilirubin 1.2 H AST 23 D ALT 16 Alkaline Phosphatase 115 Troponin I High Sens B-Natriuretic Peptide Total Protein 6.7 Albumin 3.7 Lipase 9 05/17/21 04:15 MCV MCH MCHC RDW Plt Count MPV Immature Gran % (Auto) Neut % (Auto) Lymph % (Auto) [place] % (Auto) Eos % (Auto) Baso % (Auto) Lymph # (Auto) [place] # (Auto) Eos # (Auto) Baso # (Auto) Abs Immat Gran (auto) Absolute Neuts (auto) Absolute Nucleated RBC Nucleated RBC % (auto) PT INR Anion Gap Estim Creat Clear Calc Estimated GFR Random Glucose Calcium Total Bilirubin AST ALT Alkaline Phosphatase Troponin I High Sens < 3.5 D B-Natriuretic Peptide 636 H Total Protein Albumin Lipase Imaging Radiologist's Impressions: Impressions Chest X-Ray 05/17/21 04:04 IMPRESSION: No acute cardiopulmonary findings. Assessment and Plan (1) SOB (shortness of breath): Status: Acute (2) PAF (paroxysmal atrial fibrillation): Status: Acute (3) (HFpEF) heart failure with preserved ejection fraction: Status: Acute (4) Alcohol abuse: Status: Acute 55-year-old male with a past medical history of hypertension, hyperlipidemia, AFib Eliquis, amiodarone recent cardioversion, diastolic CHF on Lasix presented to the hospital today with a chief complaint of shortness of breath. Shortness of breath: Patient given Lasix in the ER. Given concerns for CHF. Chest x-ray showed no pulmonary condition; patient has trace pedal edema; EKG shows AFib-nonischemic; troponin negative; patient denies any chest pain. Monitor on telemetry Cardiology consult Diastolic CHF: Daily weights and I's and O's. Continue home dose of Lasix for now. Monitor renal function. Atrial fibrillation: Patient reportedly had cardioversion recently. Currently noted to be in AFib again. Continue home Eliquis, amiodarone, metoprolol. For all other chronic conditions, home medications will be continued once med rec is done. DVT prophylaxis patient on Eliquis Code status: Full code Note: Things to follow up with the day hospitalist once care resumed at 7:00 a.m. 05/17/2021: Telemetry Cardiology recommendations Follow-up BMP for renal function Quality Stroke Does the patient have a stroke diagnosis?: No VTE Prior VTE?: No VTE Risk Level:: Medical - low VTE Device Contraindication: Treatment Not Indicated VTE Drug Contraindication: N/A - Med Ordered
--- NOTE | 2021-05-17 05:36 | PC.NURSE ---
500cc of clear, tea-colored urine emptied from bedside urinal
--- NOTE | 2021-05-17 05:50 | PC.NURSE ---
Hospitalist at bedside for admission dandre
--- NOTE | 2021-05-17 06:33 | PC.NURSE ---
1000cc of clear, straw colored urine emptied from bedside urinal
--- NOTE | 2021-05-17 06:38 | PC.NURSE ---
this nurse asked pt if he is aware that his plan of care was to admit him to hospital. pt states he doesn't want to be admitted and wants to follow up with his doctors this week. Hospitalist notified that pt does not want to be admitted.
--- NOTE | 2021-05-17 06:42 | P.EN_ITS ---
Event Note Date of Service: 05/17/21 Event Note: ER team wanted to admit the patient for possible CHF. After miriam maynard my interview patient reported to the nurse that he does not want to be admitted. Admission was canceled. ER team going to sign the patient against medical advice.
[2021-05-17 08:30] LABS: COVID-19 Test Negative (Negative); IDNOW Serial# 9DD0AD1C
--- NOTE | 2021-05-17 08:45 | MHC.CM.PN ---
Patient left AMA before he could be seen by case management.
[2021-05-17] MEDS: 0.9 % Sodium Chloride Flush 3 ML SYRINGE IVFLUSH ×3 (08:49→23:41)
--- NOTE | 2021-05-17 10:58 | PC.NURSE ---
pie topper at bedside, pt aware of plan of care
--- NOTE | 2021-05-17 11:10 | PM.CNCAR ---
History of Present Illness History of Present Illness Date of Service: 05/17/21 Requesting physician: Donte David Chief complaint: Acute CHF, persistent atrial fibrillation Narrative: I was consulted to see recorder in cardiology consultation today for presentation with acute shortness of breath and noted to be in heart failure with elevated BNP in the 600 range. He has been seen by Dr. Chaudhary as an outpatient. Patient since January was the 1st time when he was diagnosed atrial fibrillation rapid ventricular response and congestive heart failure. His echocardiogram at that time had shown preserved LV ejection fraction. He had done undergone GABRIEL and was noted to have left atrial appendage thrombus. She was then treated with rate control, diuresis as well as oral anticoagulation therapy. In April then he followed up with Dr. Chaudhary and under GABRIEL for plan for synchronized cardioversion. Gabriel had shown no left atrial appendage thrombus and he had undergone cardioversion. He had converted briefly to sinus rhythm and then reverted back to atrial fibrillation. At that time plan was made to have him come back for synchronized cardioversion after loading with amiodarone 400 mg b.i.d.. He has been started loaded on amiodarone since 05/04/2021. He has had about almost 2 weeks of loading done. He has been taking his amiodarone, metoprolol as well as Eliquis regularly. He is currently not on home diuretics. He was doing well. Last night he watch football games and went to bed and could not catch his breath. Every time he would try to sleepy would get short of breath and wakes up. He therefore drove himself to the emergency room. In the emergency room he was noted to have elevated BNP as above. He was given Lasix 60 mg IV push and has diuresed well. He says he feels very well right now and wants to go home. However remains in atrial fibrillation. His rate is borderline controlled. He denies any chest pain, palpitations, lightheadedness, syncope. No clear fluid gain. He has also been diagnosed with severe sleep apnea and currently has not received any treatment. Review of Systems Constitutional: Constitutional: Reports no additional constitutional complaints Cardiovascular: Cardiovascular: Denies chest pain, Denies rapid heart rate, Denies leg edema, Denies lightheadedness, Denies Loss of Consciousness, Denies palpitations, Reports dyspnea and Reports orthopnea Respiratory: Respiratory: Reports no additional respiratory complaints and Reports dyspnea Gastrointestinal: Gastrointestinal: Reports no additional gastrointestinal complaints Musculoskeletal: Musculoskeletal: Reports no additional musculoskeletal complaints Integumentary/Breasts: Skin/Breast: Reports system reviewed and no additional complaints, except as docu Neurologic: Reports system reviewed and no additional complaints, except as documented Psychiatric: Psychiatric: Reports no additional psychiatric complaints Endocrine: Endocrine: Reports no additional endocrine complaints and Denies palpitations Hematologic/Lymphatic: Hematologic/Lymphatic: Reports no additional hematologic/lymphatic complaints Allergic/Immunologic: Allergic/Immunologic: Reports no additional allergic/immunologic complaints PMFSH Past Medical History Medical History (HFpEF) heart failure with preserved ejection fraction Alcohol abuse Atrial fibrillation HTN (hypertension) Sleep apnea Family History Family History Other Diabetes mellitus Surgical History Surgical History S/P hip replacement Status post ORIF of fracture of ankle Social History Social History Household Members: Significant Other and Children Household Members Other:: Girlfriend and daughter Housing: House Do you presently have visiting nurse or other home services: No Alcohol intake: current Alcohol intake frequency: a few times a week Alcohol type: beer Patient Tobacco Use Status: Never used Tobacco Use of substances other than those prescribed or required for medical reasons: Yes Substance Use Type: Marijuana Substance Use Frequency: Occasionally Advance Directives: Yes Advance Directives on File: Yes Advance Directives Date on File: 01/25/21 service: No Current occupational status: unemployed Meds Allergies Allergy/AdvReac Type Severity Reaction Status Date / Time No Known Allergies Allergy Verified 05/04/21 07:56 Active Medications: Current Medications Acetaminophen (Acetaminophen 325 Mg Tablet) 650 mg PO Q6H PRN PRN Reason: Pain, Mild (Pain Scale 1-3) Melatonin (Melatonin 3 Mg Tablet) 6 mg PO BEDTIME PRN PRN Reason: Insomnia Senna (Sennosides 8.6 Mg Tablet) 17.2 mg PO BEDTIME PRN PRN Reason: Constipation Sodium Chloride (0.9 % Sodium Chloride Flush 3 Ml Syringe) 3 ml IVFLUSH QSHIFT [facility] Last Admin: 05/17/21 08:49 Dose: 3 ml Documented by: Physical Exam Vital Signs: Vital Signs: Last Vital Signs Temp 98.8 F 05/17/21 11:05 Pulse 87 05/17/21 11:05 Resp 16 05/17/21 11:05 BP 119/85 05/17/21 11:05 Pulse Ox 92 05/17/21 11:05 Body Mass Index 35.6 Const: General: cooperative, comfortable, no acute distress, alert and awake Nutritional Appearance: obese Orientation/consciousness: patient oriented x3 Limitations: no limitations HENMT: Head: Yes normocephalic and Yes atraumatic Neck: Neck: Yes trachea midline, Yes supple and Yes no JVD Chest: Chest palpation & inspection: normal inspection of the chest Resp: Effort & Inspection: normal respiratory effort Auscultation: clear to auscultation bilaterally Cardio: Jugular venous distension: no JVD Palpation: normal PMI Rate: tachycardic Rhythm: abnormal rhythm irregularly irregular Heart sounds: S1 normal heart sound present, S2 normal heart sound present, no click, no gallops, no murmurs and no rubs GI: Auscultation: normal bowel sounds Skin: General skin exam: no rashes or lesions noted Neuro: General: patient oriented x3 and no focal motor deficits Extrem: General: Yes no clubbing, cyanosis or edema Psych: Appearance: grossly normal Results Labs and Meds Result diagrams: 05/17/21 04:15 05/17/21 04:15 Lab results: Laboratory Results - last 24 hr 05/17/21 05/17/21 05/17/21 04:15 04:15 04:15 WBC 7.7 RBC 4.26 L Hgb 12.3 L Hct 38.1 L MCV 89.4 MCH 28.9 MCHC 32.3 RDW 13.3 Plt Count 277 MPV 9.8 Immature Gran % (Auto) 0.3 Neut % (Auto) 65.3 Lymph % (Auto) 22.8 [place] % (Auto) 10.4 Eos % (Auto) 0.5 Baso % (Auto) 0.7 Lymph # (Auto) 1.8 [place] # (Auto) 0.8 Eos # (Auto) 0.0 Baso # (Auto) 0.1 Abs Immat Gran (auto) 0.02 Absolute Neuts (auto) 5.03 Absolute Nucleated RBC 0.000 Nucleated RBC % (auto) 0.0 PT 13.8 H INR 1.2 H Sodium 139 Potassium 4.0 Chloride 103 Carbon Dioxide 27 Anion Gap 13 BUN 10 Creatinine 1.04 Estim Creat Clear Calc 118.9 Estimated GFR > 60 Random Glucose 89 Calcium 9.2 Total Bilirubin 1.2 H AST 23 D ALT 16 Alkaline Phosphatase 115 Troponin I High Sens B-Natriuretic Peptide Total Protein 6.7 Albumin 3.7 Lipase 9 COVID-19 (MAZIN) COVID-19 Clin Com 05/17/21 05/17/21 04:15 08:03 WBC RBC Hgb Hct MCV MCH MCHC RDW Plt Count MPV Immature Gran % (Auto) Neut % (Auto) Lymph % (Auto) [place] % (Auto) Eos % (Auto) Baso % (Auto) Lymph # (Auto) [place] # (Auto) Eos # (Auto) Baso # (Auto) Abs Immat Gran (auto) Absolute Neuts (auto) Absolute Nucleated RBC Nucleated RBC % (auto) PT INR Sodium Potassium Chloride Carbon Dioxide Anion Gap BUN Creatinine Estim Creat Clear Calc Estimated GFR Random Glucose Calcium Total Bilirubin AST ALT Alkaline Phosphatase Troponin I High Sens < 3.5 D B-Natriuretic Peptide 636 H Total Protein Albumin Lipase COVID-19 (MAZIN) Negative COVID-19 Clin Com See Note Imaging Radiologist's impression: Impressions Chest X-Ray 05/17/21 04:04 IMPRESSION: No acute cardiopulmonary findings. Assessment and Plan (1) CHF exacerbation: Status: Acute Patient presents with acute onset symptoms of shortness of breath consistent with decompensated congestive heart failure. Clinically doing much better with IV Lasix. Continue IV Lasix 40 mg today. Strict intake and output chart. Follow up in trend BNP tomorrow. Will also need to pursue rhythm control approach more aggressively, see below. Continue blood pressure management, Toprol as prescribed before. There was suggestion of him developing cardiomyopathy by last GABRIEL, most likely tachycardia mediated and therefore would benefit rhythm control approach. He also needs treatment for sleep apnea as soon as possible given his severe sleep apnea which is contributing to his heart failure, hypertension as well as atrial fibrillation. (2) Atrial fibrillation: Status: Acute Persistent atrial fibrillation with borderline rate control. Patient has remained in atrial fibrillation on amiodarone loading. Had failed maintaining rhythm after last cardioversion, most likely due to structural changes in his heart with noted at least moderate left atrial enlargement. He also has untreated sleep apnea. However this time he has been loaded with amiodarone adequately. Will pursue rhythm control approach, continue amiodarone 400 mg b.i.d. today as well as Eliquis 5 mg b.i.d.. He said he has been taking his medications without interruption. Complete abstinence from alcohol was discussed. Will perform synchronized cardioversion tomorrow, keep him NPO past midnight. He does not require repeat GABRIEL as last he had shown no presence of left atrial and appendage thrombus after adequate anticoagulation and he has been taking his oral anticoagulation therapy. He will also need starting of his CPAP therapy as soon as possible for his severe sleep apnea. Will follow with you Procedures Date of Service Date of Service: 05/17/21
--- NOTE | 2021-05-17 15:47 | PM.IMHP ---
History of Present Illness Date of Service: 05/17/21 55-year-old man admitted today with shortness of breath in the backdrop of AFib newly diagnosed January 2021 found to be in CHF with a BNP of 600. His echo in January had shown preserved LV ejection fraction. He did undergo SLY and was noted to have left atrial appendage thrombus. He was subsequently treated rate control and diuresis and oral anticoagulation. In April he followed up with Dr. Chaudhary and under SLY plan was for synchronized cardioversion; sly failed to demonstrate left atrial appendage thrombus and he was converted. This conversion was short-lived and reverted back to atrial fibrillation with rapid response. He was placed on amiodarone 400 mg b.i.d. and this was started on 05/04/2021. States he felt the shortness of breath last night watching football game and then it woke him from his sleep. He will be admitted to the hospital kept on his amiodarone loading dose and Eliquis to and is for synchronized cardioversion in a.m.. This was discussed with Dr. Montemayor Review of Systems Review of Systems: Denies chest pain States shortness of breath has improved with IV Lasix No nausea vomiting diarrhea Unaware of rapid heart rate [facility] Medical History (HFpEF) heart failure with preserved ejection fraction Alcohol abuse Atrial fibrillation HTN (hypertension) Sleep apnea Family History Other Diabetes mellitus Pertinent family history: . Surgical History S/P hip replacement Status post ORIF of fracture of ankle Social History Household Members: Significant Other and Children Household Members Other:: Girlfriend and daughter Housing: House Do you presently have visiting nurse or other home services: No Alcohol intake: current Alcohol intake frequency: a few times a week Alcohol type: beer Patient Tobacco Use Status: Never used Tobacco Use of substances other than those prescribed or required for medical reasons: Yes Substance Use Type: Marijuana Substance Use Frequency: Occasionally Advance Directives: Yes Advance Directives on File: Yes Advance Directives Date on File: 01/25/21 service: No Current occupational status: unemployed Meds Allergies Allergy/AdvReac Type Severity Reaction Status Date / Time No Known Allergies Allergy Verified 05/04/21 07:56 Active Medications: Current Medications Acetaminophen (Acetaminophen 325 Mg Tablet) 650 mg PO Q6H PRN PRN Reason: Pain, Mild (Pain Scale 1-3) Amiodarone HCl (Amiodarone Hcl 200 Mg Tablet) 400 mg PO BID [facility] Apixaban (Apixaban 5 Mg Tablet) 5 mg PO BID [facility] Melatonin (Melatonin 3 Mg Tablet) 6 mg PO BEDTIME PRN PRN Reason: Insomnia Metoprolol Succinate (Metoprolol Succinate Er 100 Mg Tab.Er.24h) 100 mg PO DAILY [facility]; Protocol Pharmacy Consult (Consult Rx Perform Med Rec) 1 each MISCELLANE ONCE PRN PRN Reason: Consult order Senna (Sennosides 8.6 Mg Tablet) 17.2 mg PO BEDTIME PRN PRN Reason: Constipation Sodium Chloride (0.9 % Sodium Chloride Flush 3 Ml Syringe) 3 ml IVFLUSH QSHIFT [facility] Last Admin: 05/17/21 08:49 Dose: 3 ml Documented by: Sodium Chloride (0.9 % Sodium Chloride Flush 3 Ml Syringe) 3 ml IVFLUSH QSHIFT [facility] Physical Exam Vital Signs and Narrative: Vital Signs: Last Vital Signs Temp 98.2 F 05/17/21 14:00 Pulse 95 05/17/21 15:23 Resp 15 05/17/21 15:23 BP 124/81 05/17/21 15:23 Pulse Ox 95 05/17/21 15:23 Body Mass Index 35.6 Const: Other: Awake alert no acute distress; monitor AFib with controlled ventricular response rate HENMT: Other: Membranes moist; oropharynx clear Resp: Other: Clear to auscultation bilaterally; no rales rhonchi or wheezes Cardio: Other: No S4; positive S1-S2 no S3 without murmurs rubs gallops irregularly irregular GI: Other: Soft nontender nondistended with normoactive bowel sounds all 4 quadrants Neuro: Other: Cranial nerves 2-12 grossly intact as tested. Motor is 5/5 all extremities; sensation intact. Cognition appropriate Extrem: Other: No edema bilaterally Results Labs CBC and Chem 7: 05/17/21 04:15 05/17/21 04:15 Labs: Laboratory Results - last 24 hr 11/08/0605/17/21 05/17/21 04:15 04:15 04:15 MCV 89.4 MCH 28.9 MCHC 32.3 RDW 13.3 Plt Count 277 MPV 9.8 Immature Gran % (Auto) 0.3 Neut % (Auto) 65.3 Lymph % (Auto) 22.8 [place] % (Auto) 10.4 Eos % (Auto) 0.5 Baso % (Auto) 0.7 Lymph # (Auto) 1.8 [place] # (Auto) 0.8 Eos # (Auto) 0.0 Baso # (Auto) 0.1 Abs Immat Gran (auto) 0.02 Absolute Neuts (auto) 5.03 Absolute Nucleated RBC 0.000 Nucleated RBC % (auto) 0.0 PT 13.8 H INR 1.2 H Anion Gap 13 Estim Creat Clear Calc 118.9 Estimated GFR > 60 Random Glucose 89 Calcium 9.2 Total Bilirubin 1.2 H AST 23 D ALT 16 Alkaline Phosphatase 115 Troponin I High Sens B-Natriuretic Peptide Total Protein 6.7 Albumin 3.7 Lipase 9 COVID-19 (MAZIN) COVID-19 Clin Com 05/17/21 05/17/21 04:15 08:03 MCV MCH MCHC RDW Plt Count MPV Immature Gran % (Auto) Neut % (Auto) Lymph % (Auto) [place] % (Auto) Eos % (Auto) Baso % (Auto) Lymph # (Auto) [place] # (Auto) Eos # (Auto) Baso # (Auto) Abs Immat Gran (auto) Absolute Neuts (auto) Absolute Nucleated RBC Nucleated RBC % (auto) PT INR Anion Gap Estim Creat Clear Calc Estimated GFR Random Glucose Calcium Total Bilirubin AST ALT Alkaline Phosphatase Troponin I High Sens < 3.5 D B-Natriuretic Peptide 636 H Total Protein Albumin Lipase COVID-19 (MAZIN) Negative COVID-19 Clin Com See Note Imaging Radiologist's Impressions: Impressions Chest X-Ray 05/17/21 04:04 IMPRESSION: No acute cardiopulmonary findings. Assessment and Plan (1) (HFpEF) heart failure with preserved ejection fraction: Status: Acute (2) Persistent atrial fibrillation: Status: Acute 55-year-old male with with known atrial fibrillation failed outpatient cardioversion in January; started on amiodarone load and has been compliant. Developed acute onset shortness of breath..... Presented to ER and found to be in CHF. He was given IV Lasix and responded well; he is now symptom free resting comfortably. He will be admitted for cardioversion in the morning 1. Persistent atrial fibrillation Will continue amiodarone 400 b.i.d. and metoprolol 100 mg daily. Eliquis 2 as ordered 5 mg b.i.d.. Cardiology consult id; orders placed. For synchronized cardioversion in a.m. Admit telemetry; check BNP and routine labs in a.m. NPO after midnight Full code/DVT prophylaxis with apixaban Quality Stroke Does the patient have a stroke diagnosis?: No VTE Prior VTE?: No VTE Risk Level:: Medical - low VTE Device Contraindication: Treatment Not Indicated VTE Drug Contraindication: N/A - Med Ordered
[2021-05-17] MEDS: Metoprolol Succinate ER 100 MG TAB.ER.24H PO (16:32)
[2021-05-17] MEDS: Apixaban 5 MG TABLET PO (20:21)
[2021-05-17] MEDS: Amiodarone HCL 200 MG TABLET 400 MG PO (20:21)
[2021-05-17] MEDS: Acetaminophen 325 MG TABLET 650 MG PO (23:39)
[2021-05-18] VITALS (11 sets, daily range): BP systolic 103–172; BP diastolic 68–92; PULSE 70–106; RESP 12–20; TEMP 36.3–37; O2SAT 94–99; BMI 35.8
[2021-05-18 01:48] LABS: Magnesium 1.9 mg/dL (1.6-2.6); Potassium 4.1 mmol/L (3.3-5.1)
[2021-05-18 06:22] LABS: MANUAL DIFF FLAG NO
[2021-05-18 06:36] LABS: Basophils Percent Auto 0.5 % (0-2); Eosinophils Absolute Auto 0.1 X10*3/uL (0.0-0.4); Eosinophils Percent Auto 0.6 % (0-4); Hematocrit 40.4 % (42.0-52.0); Imm Gran Abs Auto 0.02 X10*3/uL (0.00-0.03); Imm Gran Pct Auto 0.2 % (0.0-0.4); Lymphocytes Absolute Auto 2.3 X10*3/uL (1.2-4.9); Mean Corpuscular HGB Conc 32.2 g/dl (31.0-36.0); Mean Corpuscular Hemoglobin 28.9 pg (27.0-33.0); Mean Corpuscular Volume 89.8 fL (80.0-98.0); Mean Platelet Volume 10.5 fL (9.4-12.4); Monocytes Percent Auto 11.3 % (2-11); Neutrophils Percent Auto 60.4 % (45-73); Platelet Count 311 X10*3/uL (160-400); Red Cell Distribution Width 13.3 % (11.0-16.0); White Blood Count 8.6 X10*3/uL (4.8-10.8)
[2021-05-18 06:46] LABS: Anion Gap 13 (12-20); Blood Urea Nitrogen 11 mg/dL (9-16); Calcium 9.2 mg/dL (8.4-10.2); Carbon Dioxide 29 mmol/L (22-29); Chloride 100 mmol/L (96-108); Estimated Glomerular Filt Rate > 60; Glucose Random 91 mg/dL (60-115); Magnesium 1.9 mg/dL (1.6-2.6); Potassium 4.2 mmol/L (3.3-5.1); Sodium 138 mmol/L (135-145)
[2021-05-18] MEDS: Metoprolol Succinate ER 100 MG TAB.ER.24H PO (09:52)
[2021-05-18] MEDS: Amiodarone HCL 200 MG TABLET 400 MG PO (09:52)
[2021-05-18] MEDS: Apixaban 5 MG TABLET PO (09:52)
[2021-05-18] MEDS: 0.9 % Sodium Chloride Flush 3 ML SYRINGE IVFLUSH ×2 (09:53→16:35)
--- NOTE | 2021-05-18 11:33 | PM.PNCARD ---
Subjective Subjective Date of Service: 05/18/21 Principal diagnosis: CHF, persistent atrial fibrillation Interval history: Patient is doing very well. He said he slept very well overnight. No significant breathing issues. Remains in atrial fibrillation with rapid ventricular response. Review of Systems Review of Systems Yes all other systems are reviewed and are negative Cardiovascular: Reports no additional cardiovascular complaints Respiratory: Reports no additional respiratory complaints Gastrointestinal: Reports no additional gastrointestinal complaints Genitourinary: Reports no additional male genitourinary complaints Musculoskeletal: Reports no additional musculoskeletal complaints Skin/Breast: Reports system reviewed and no additional complaints, except as docu Reports system reviewed and no additional complaints, except as documented Physical Exam Vital Signs: Last Vital Signs Temp 98.1 F 05/18/21 11:17 Pulse 88 05/18/21 11:17 Resp 18 05/18/21 11:17 BP 140/92 H 05/18/21 11:17 Pulse Ox 94 05/18/21 11:17 Body Mass Index 35.8 Const General: cooperative, comfortable, no acute distress, alert and awake Nutritional Appearance: obese Orientation/consciousness: patient oriented x3 Neck Neck: Yes trachea midline and Yes no JVD Resp Effort & Inspection: normal respiratory effort Auscultation: clear to auscultation bilaterally Cardio Jugular venous distension: no JVD Palpation: normal PMI Rate: tachycardic Rhythm: abnormal rhythm irregularly irregular Heart sounds: S1 normal heart sound present, S2 normal heart sound present, no click, no gallops and no murmurs GI Auscultation: normal bowel sounds Neuro General: patient oriented x3 and no focal motor deficits Extrem General: Yes no clubbing, cyanosis or edema Results Labs and Meds Result diagrams: 05/18/21 06:01 05/18/21 06:01 Lab results: Laboratory Results - last 24 hr 05/18/21 05/18/21 05/18/21 01:23 06:01 06:01 WBC 8.6 RBC 4.50 L Hgb 13.0 L Hct 40.4 L MCV 89.8 MCH 28.9 MCHC 32.2 RDW 13.3 Plt Count 311 MPV 10.5 Immature Gran % (Auto) 0.2 Neut % (Auto) 60.4 Lymph % (Auto) 27.0 [place] % (Auto) 11.3 H Eos % (Auto) 0.6 Baso % (Auto) 0.5 Lymph # (Auto) 2.3 [place] # (Auto) 1.0 Eos # (Auto) 0.1 Baso # (Auto) 0.0 Abs Immat Gran (auto) 0.02 Absolute Neuts (auto) 5.20 Absolute Nucleated RBC 0.000 Nucleated RBC % (auto) 0.0 Sodium 138 Potassium 4.1 4.2 Chloride 100 Carbon Dioxide 29 Anion Gap 13 BUN 11 Creatinine 1.00 Estim Creat Clear Calc 124.0 Estimated GFR > 60 Random Glucose 91 Calcium 9.2 Magnesium 1.9 1.9 Progress Note: A&P Assessment and plan (1) Persistent atrial fibrillation: Status: Acute Assessment and Plan: Persistent atrial fibrillation with controlled ventricular response causing congestive heart failure. Need to pursue rhythm control approach. He has been adequately loaded with amiodarone. Will continue amiodarone loading till it is completed. Perform synchronized cardioversion later today. There has been no interruption in his Eliquis dose as per the patient. Risks, benefits, alternatives were discussed with him. He understands agrees. Need to start CPAP therapy as soon as possible for his sleep apnea which is paramount. Avoidance of alcohol was discussed. (2) CHF exacerbation: Status: Acute Assessment and Plan: Congestive heart failure, clinically much improved after Lasix. Switch to p.o. Lasix 20 mg daily. Rhythm control as above. Will follow with echocardiogram as outpatient. If converts to sinus rhythm later today can be discharged. Will follow with the patient Fall Risk Details Current Medications: Current Medications Acetaminophen (Acetaminophen 325 Mg Tablet) 650 mg PO Q6H PRN PRN Reason: Pain, Mild (Pain Scale 1-3) Last Admin: 05/17/21 23:39 Dose: 650 mg Documented by: Amiodarone HCl (Amiodarone Hcl 200 Mg Tablet) 400 mg PO BID [facility] Last Admin: 05/18/21 09:52 Dose: 400 mg Documented by: Apixaban (Apixaban 5 Mg Tablet) 5 mg PO BID [facility] Last Admin: 05/18/21 09:52 Dose: 5 mg Documented by: Melatonin (Melatonin 3 Mg Tablet) 6 mg PO BEDTIME PRN PRN Reason: Insomnia Metoprolol Succinate (Metoprolol Succinate Er 100 Mg Tab.Er.24h) 100 mg PO DAILY [facility]; Protocol Last Admin: 05/18/21 09:52 Dose: 100 mg Documented by: Pharmacy Consult (Consult Rx Perform Med Rec) 1 each MISCELLANE ONCE PRN PRN Reason: Consult order Senna (Sennosides 8.6 Mg Tablet) 17.2 mg PO BEDTIME PRN PRN Reason: Constipation Sodium Chloride (0.9 % Sodium Chloride Flush 3 Ml Syringe) 3 ml IVFLUSH [facility] Last Admin: 05/18/21 09:53 Dose: 3 ml Documented by: Sodium Chloride (0.9 % Sodium Chloride Flush 3 Ml Syringe) 3 ml IVFLUSH [facility] Last Admin: 05/18/21 09:53 Dose: Not Given Documented by: Time Spent With Patient Time: Total time spent is greater than 50% in coordination of care (as documented) at patient's floor/unit and/or counseling patient: Time with patient: 25 - 35 minutes Progress Note: Quality Stroke Does the patient have a stroke diagnosis?: No Procedures Date of Service Date of Service: 05/18/21
--- NOTE | 2021-05-18 12:52 | MHC.CM.PN ---
Addendum entered by Laura Hicks 05/18/21 12:55: Patient is discharged today to home with family assistance and transportation. Original Note: IMM 05/18/21 Male 55 DX HF Afib. He lives with his family. He is independent with all functional mobility. DP home no services family transport.
--- NOTE | 2021-05-18 15:52 | HO.PM.IMPN ---
Subjective Subjective Date of Service: 05/18/21 Interval History: No acute issues overnight; continues on amiodarone load along with oral anticoagulation Review of Systems Denies chest pain Denies shortness of breath Denies nausea vomiting diarrhea Physical Exam Vital Signs: Vital Signs: Last Vital Signs Temp 98.1 F 05/18/21 11:17 Pulse 88 05/18/21 11:17 Resp 18 05/18/21 11:17 BP 140/92 H 05/18/21 11:17 Pulse Ox 94 05/18/21 11:17 Body Mass Index 35.8 Const: Other: Awake alert no acute distress; monitor AFib with controlled ventricular response rate HENMT: Other: Membranes moist; oropharynx clear Resp: Other: Clear to auscultation bilaterally; no rales rhonchi or wheezes Cardio: Other: No S4; positive S1-S2 no S3 without murmurs rubs gallops irregularly irregular GI: Other: Soft nontender nondistended with normoactive bowel sounds all 4 quadrants Neuro: Other: Cranial nerves 2-12 grossly intact as tested. Motor is 5/5 all extremities; sensation intact. Cognition appropriate Extrem: Other: No edema bilaterally Objective Data Active Medications Acetaminophen (Acetaminophen 325 Mg Tablet) 650 mg PO Q6H PRN PRN Reason: Pain, Mild (Pain Scale 1-3) Last Admin: 05/17/21 23:39 Dose: 650 mg Documented by: ROSA Amiodarone HCl (Amiodarone Hcl 200 Mg Tablet) 400 mg PO BID [facility] Last Admin: 05/18/21 09:52 Dose: 400 mg Documented by: ADILSON Apixaban (Apixaban 5 Mg Tablet) 5 mg PO BID [facility] Last Admin: 05/18/21 09:52 Dose: 5 mg Documented by: ADILSON Melatonin (Melatonin 3 Mg Tablet) 6 mg PO BEDTIME PRN PRN Reason: Insomnia Metoprolol Succinate (Metoprolol Succinate Er 100 Mg Tab.Er.24h) 100 mg PO DAILY [facility]; Protocol Last Admin: 05/18/21 09:52 Dose: 100 mg Documented by: ADILSON Pharmacy Consult (Consult Rx Perform Med Rec) 1 each MISCELLANE ONCE PRN PRN Reason: Consult order Senna (Sennosides 8.6 Mg Tablet) 17.2 mg PO BEDTIME PRN PRN Reason: Constipation Sodium Chloride (0.9 % Sodium Chloride Flush 3 Ml Syringe) 3 ml IVFLUSH QSLAFT [facility] Last Admin: 05/18/21 09:53 Dose: 3 ml Documented by: ADILSON Sodium Chloride (0.9 % Sodium Chloride Flush 3 Ml Syringe) [facility] Last Admin: 05/18/21 09:53 Dose: Not Given Documented by: ADILSON Non-Admin Reason: Duplicate Order Labs CBC & Chem 7: 05/18/21 06:01 05/18/21 06:01 Labs: Laboratory Results - last 24 hr 05/18/21 05/18/21 05/18/21 01:23 06:01 06:01 MCV 89.8 MCH 28.9 MCHC 32.2 RDW 13.3 Plt Count 311 MPV 10.5 Immature Gran % (Auto) 0.2 Neut % (Auto) 60.4 Lymph % (Auto) 27.0 [place] % (Auto) 11.3 H Eos % (Auto) 0.6 Baso % (Auto) 0.5 Lymph # (Auto) 2.3 [place] # (Auto) 1.0 Eos # (Auto) 0.1 Baso # (Auto) 0.0 Abs Immat Gran (auto) 0.02 Absolute Neuts (auto) 5.20 Absolute Nucleated RBC 0.000 Nucleated RBC % (auto) 0.0 Anion Gap 13 Estim Creat Clear Calc 124.0 Estimated GFR > 60 Random Glucose 91 Calcium 9.2 Magnesium 1.9 1.9 Assessment and Plan (1) Persistent atrial fibrillation: Status: Acute Assessment and Plan: 55-year-old male with with known atrial fibrillation failed outpatient cardioversion in January; started on amiodarone load and has been compliant. Developed acute onset shortness of breath..... Presented to ER and found to be in CHF. He was given IV Lasix and responded well; he is now symptom free resting comfortably. He will be admitted for cardioversion in the morning 1. Persistent atrial fibrillation Will continue amiodarone 400 b.i.d. and metoprolol 100 mg daily. Eliquis 2 as ordered 5 mg b.i.d.. Remains NPO pending cardioversion today. Further plans as per Cardiology Full code/DVT prophylaxis with apixaban Quality Stroke Does the patient have a stroke diagnosis?: No VTE Prior VTE?: No VTE Risk Level:: Medical - low VTE Device Contraindication: Treatment Not Indicated VTE Drug Contraindication: N/A - Med Ordered
--- NOTE | 2021-05-18 16:56 | MHC.SHP ---
Pre-Procedural Eval Section A Date of Service: 05/18/21 The patient is an INPATIENT: Yes Changes since office visit: Yes Patient answered all questions; No Cold of Flu in the past 2 weeks, No New Medical Problems and No Changes in Medication The History & Physical has been completed within 30 days and I have reviewed it.: Yes Section B Chief Complaint: Acute CHF, persistent atrial fibrillation Allergies: Allergies Allergy/AdvReac Type Severity Reaction Status Date / Time No Known Allergies Allergy Verified 05/04/21 07:56 Plan I have reviewed the history and physical and performed a pertinent physical examination on my patient. No changes have occurred unless specified.
--- NOTE | 2021-05-18 17:01 | HO.CARDIVERS ---
Cardioversion Procedure Note Cardioversion Date of Procedure: 05/18/2021 Ordering Provider: Myself Performing Provider: Myself Indication for Procedure: Persistent slebwtaay-rb-fenichb atrial fibrillation with heart failure Pre-Op Diagnosis: Same Post-Op Diagnosis: Sinus rhythm Performed with Transesophageal Echo: No History: See my consult note Consent: Verbal and Written consent was obtained from the patient before starting and confirming oral anticoagulation The patient was made aware of the risk of synchronized cardioversion including risk, benefits, alternatives. Procedure: After consent obtained, cardioversion pads were attached in anteroposterior configuration and the patient was sedated by the anesthesia team. Once adequate sedation achieved, patient is delivered 200 joules of biphasic synchronized energy in anteroposterior configuration Complications: None Impression: Successful conversion to sinus rhythm Recommendations: Plan: 1. Twelve lead EKG 2. Complete loading of amiodarone 400 mg b.i.d. for total of 14 days since initiation and then 200 mg daily. 3. Continue full oral anticoagulation
--- NOTE | 2021-05-18 17:03 | ECG_ITS ---
Test Reason : Post cardioversion Blood Pressure : / mmHG Vent. Rate : 071 BPM Atrial Rate : 071 BPM P-R Int : 164 ms QRS Dur : 078 ms QT Int : 436 ms P-R-T Axes : 022 -29 011 degrees QTc Int : 473 ms Normal sinus rhythm RSR' or QR pattern in V1 suggests right ventricular conduction delay Left axis deviation Borderline ECG Normal sinus rhythm has replaced Atrial fibrillation Premature ventricular complexes are no longer Present Referred By: Joe Montemayor Electronically Signed By:FIORELLA DIXON MD
--- NOTE | 2021-05-18 17:11 | P.CONAN_ITS ---
HPI - Anesthesia Eval Consult details Narrative: 55-year-old male presenting for synchronized cardioversion for atrial fibrillation [facility] Active Problems Active Problems: All Active Problems (Updated 05/17/21 @ 16:00 by Duke Russell DO) Persistent atrial fibrillation (Acute) CHF exacerbation (Acute) Atrial fibrillation (Acute) SOB (shortness of breath) (Acute) Alcoholic fatty liver (Acute) Hypersomnia (Acute) Thrombus of left atrial appendage (Acute) Obstructive sleep apnea (Acute) Obesity (Acute) PAF (paroxysmal atrial fibrillation) (Acute) Morbid obesity (Acute) Acute diastolic (congestive) heart failure (Acute) Alcohol abuse (Acute) HTN (hypertension) (Acute) (HFpEF) heart failure with preserved ejection fraction (Acute) Atrial fibrillation (Acute) Past Medical History Medical History (HFpEF) heart failure with preserved ejection fraction Alcohol abuse Atrial fibrillation HTN (hypertension) Sleep apnea Family History Family History Other Diabetes mellitus Family history of problems with anesthesia: No Surgical History Surgical History S/P hip replacement Status post ORIF of fracture of ankle History of Problems with Anesthesia: No Social History Social History Household Members: Family Household Members Other:: Girlfriend and daughter Housing: House Do you presently have visiting nurse or other home services: No Alcohol intake: current Alcohol intake frequency: a few times a week Alcohol type: beer Patient Tobacco Use Status: Never used Tobacco Substance Use Type: Marijuana Advance Directives Date on File: 01/25/21 service: No Current occupational status: unemployed Meds Allergies Allergy/AdvReac Type Severity Reaction Status Date / Time No Known Allergies Allergy Verified 05/04/21 07:56 Active Medications: Current Medications Acetaminophen (Acetaminophen 325 Mg Tablet) 650 mg PO Q6H PRN PRN Reason: Pain, Mild (Pain Scale 1-3) Last Admin: 05/17/21 23:39 Dose: 650 mg Documented by: Amiodarone HCl (Amiodarone Hcl 200 Mg Tablet) 400 mg PO BID [facility] Last Admin: 05/18/21 09:52 Dose: 400 mg Documented by: Apixaban (Apixaban 5 Mg Tablet) 5 mg PO BID [facility] Last Admin: 05/18/21 09:52 Dose: 5 mg Documented by: Melatonin (Melatonin 3 Mg Tablet) 6 mg PO BEDTIME PRN PRN Reason: Insomnia Metoprolol Succinate (Metoprolol Succinate Er 100 Mg Tab.Er.24h) 100 mg PO DAILY [facility]; Protocol Last Admin: 05/18/21 09:52 Dose: 100 mg Documented by: Pharmacy Consult (Consult Rx Perform Med Rec) 1 each MISCELLANE ONCE PRN PRN Reason: Consult order Senna (Sennosides 8.6 Mg Tablet) 17.2 mg PO BEDTIME PRN PRN Reason: Constipation Sodium Chloride (0.9 % Sodium Chloride Flush 3 Ml Syringe) 3 ml IVFLUSH QSHIFT [facility] Last Admin: 05/18/21 16:35 Dose: Not Given Documented by: Sodium Chloride (0.9 % Sodium Chloride Flush 3 Ml [facility]) [facility] Last Admin: 05/18/21 16:35 Dose: 3 ml Documented by: Exam Exam Date and Time: May 18, 2021 1711 Height,Weight and Vital Signs: Height 6 ft 3 in Weight 286 lb 9.615 oz Last Vital Signs Temp 97.4 F 05/18/21 16:49 Pulse 106 H 05/18/21 16:49 Resp 20 05/18/21 16:49 BP 132/90 H 05/18/21 16:49 Pulse Ox 99 05/18/21 16:49 Pertinent Lab Results Pertinent Lab Results: Laboratory Tests 05/17/21 05/17/21 05/17/21 04:15 04:15 04:15 WBC 7.7 RBC 4.26 L Hgb 12.3 L Hct 38.1 L MCV 89.4 MCH 28.9 MCHC 32.3 RDW 13.3 Plt Count 277 MPV 9.8 Immature Gran % (Auto) 0.3 Neut % (Auto) 65.3 Lymph % (Auto) 22.8 [place] % (Auto) 10.4 Eos % (Auto) 0.5 Baso % (Auto) 0.7 Lymph # (Auto) 1.8 [place] # (Auto) 0.8 Eos # (Auto) 0.0 Baso # (Auto) 0.1 Abs Immat Gran (auto) 0.02 Absolute Neuts (auto) 5.03 Absolute Nucleated RBC 0.000 Nucleated RBC % (auto) 0.0 PT 13.8 H INR 1.2 H Sodium 139 Potassium 4.0 Chloride 103 Carbon Dioxide 27 Anion Gap 13 BUN 10 Creatinine 1.04 Estim Creat Clear Calc 118.9 Estimated GFR > 60 Random Glucose 89 Calcium 9.2 Magnesium Total Bilirubin 1.2 H AST 23 D ALT 16 Alkaline Phosphatase 115 Troponin I High Sens B-Natriuretic Peptide Total Protein 6.7 Albumin 3.7 Lipase 9 COVID-19 ([facility]) COVID-19 Clin Com 05/17/21 05/17/21 05/18/21 04:15 08:03 01:23 WBC RBC Hgb Hct MCV MCH MCHC RDW Plt Count MPV Immature Gran % (Auto) Neut % (Auto) Lymph % (Auto) [place] % (Auto) Eos % (Auto) Baso % (Auto) Lymph # (Auto) [place] # (Auto) Eos # (Auto) Baso # (Auto) Abs Immat Gran (auto) Absolute Neuts (auto) Absolute Nucleated RBC Nucleated RBC % (auto) PT INR Sodium Potassium 4.1 Chloride Carbon Dioxide Anion Gap BUN Creatinine Estim Creat Clear Calc Estimated GFR Random Glucose Calcium Magnesium 1.9 Total Bilirubin AST ALT Alkaline Phosphatase Troponin I High Sens < 3.5 D B-Natriuretic Peptide 636 H Total Protein Albumin Lipase COVID-19 (MAZIN) Negative COVID-19 Clin Com See Note 05/18/21 05/18/21 06:01 06:01 WBC 8.6 RBC 4.50 L Hgb 13.0 L Hct 40.4 L MCV 89.8 MCH 28.9 MCHC 32.2 RDW 13.3 Plt Count 311 MPV 10.5 Immature Gran % (Auto) 0.2 Neut % (Auto) 60.4 Lymph % (Auto) 27.0 [place] % (Auto) 11.3 H Eos % (Auto) 0.6 Baso % (Auto) 0.5 Lymph # (Auto) 2.3 [place] # (Auto) 1.0 Eos # (Auto) 0.1 Baso # (Auto) 0.0 Abs Immat Gran (auto) 0.02 Absolute Neuts (auto) 5.20 Absolute Nucleated RBC 0.000 Nucleated RBC % (auto) 0.0 PT INR Sodium 138 Potassium 4.2 Chloride 100 Carbon Dioxide 29 Anion Gap 13 BUN 11 Creatinine 1.00 Estim Creat Clear Calc 124.0 Estimated GFR > 60 Random Glucose 91 Calcium 9.2 Magnesium 1.9 Total Bilirubin AST ALT Alkaline Phosphatase Troponin I High Sens B-Natriuretic Peptide Total Protein Albumin Lipase COVID-19 (MAZIN) COVID-19 Clin Com Airway Mallampati Class: II TM Dist: >3cm Neck ROM: Full Loose/Missing/Broken Teeth: No Assessment and Plan Assessment Anesthesia Assessment: Anesthesia Plan Discussed Final Anesthetic Review Family History of Problems with Anesthesia: No History of Problems with Anesthesia: No NPO: Yes ASA Class: III Final Preanesthetic Review: No Changes in Pt Med Stat, Meds/Allgs Chart Reviewed, Consent Obtained/Reviewed and Anes Risks/Benef Reviewed Patient Risk: Intermediate Procedure Risk: Low Anesthetic Plan Anesthetic Plan: MAC: Disposition: Standard PACU
--- NOTE | 2021-05-18 18:17 | P.DS_ITS ---
DS: Providers Provider Date of Service: 05/18/21 Date of admission: 05/17/21 15:42 Primary care physician: Unknown Physician Consults: 05/17/21 05:21 Consult to Cardiology Routine Consulting Provider: Tato Delgado Reason for consultation: chf; afib; recent cardioversion DS: Diagnosis Discharge Diagnosis (1) Persistent atrial fibrillation: Status: Acute DS: Summary Hospital Course Hospital Course: 55-year-old male with history of persistent atrial fibrillation awoke tonight of admission with acute shortness of breath. Upon admission to the ER all found to be in CHF. Was diuresed with good response. Seen by Cardiology synchronized cardioversion scheduled; underwent cardioversion 05/18/2021 with success. At this time patient remains in normal sinus rhythm as documented by recent tracing; will be discharged complete amnio taper followed by 200 mg daily. He has scheduled follow-up with Cardiology Time Spent with Patient Time attestation: Total time spent providing and/or coordinating discharge services: Discharge coordination time: Greater than 30 minutes Quality: Stroke Does the patient have a stroke diagnosis?: No Physical Exam Vital Signs: Vital Signs: Last Vital Signs Temp 97.7 F 05/18/21 17:21 Pulse 70 05/18/21 17:36 Resp 18 05/18/21 17:36 BP 119/86 05/18/21 17:36 Pulse Ox 99 05/18/21 17:36 Body Mass Index 35.8 Const: Other: Awake alert no acute distress; monitor AFib with controlled ventricular response rate HENMT: Other: Membranes moist; oropharynx clear Resp: Other: Clear to auscultation bilaterally; no rales rhonchi or wheezes Cardio: Other: No S4; positive S1-S2 no S3 without murmurs rubs gallops irregularly irregular GI: Other: Soft nontender nondistended with normoactive bowel sounds all 4 quadrants Neuro: Other: Cranial nerves 2-12 grossly intact as tested. Motor is 5/5 all extremities; sensation intact. Cognition appropriate Extrem: Other: No edema bilaterally DS: Data Data Completed and Pending Completed studies during hospitalization [Text1]: Procedures Detoxification Services for Substance Abuse Treatment (01/24/21) Labs on day of discharge: Laboratory Results - last 24 hr 05/18/21 05/18/21 05/18/21 01:23 06:01 06:01 WBC 8.6 RBC 4.50 L Hgb 13.0 L Hct 40.4 L MCV 89.8 MCH 28.9 MCHC 32.2 RDW 13.3 Plt Count 311 MPV 10.5 Immature Gran % (Auto) 0.2 Neut % (Auto) 60.4 Lymph % (Auto) 27.0 [place] % (Auto) 11.3 H Eos % (Auto) 0.6 Baso % (Auto) 0.5 Lymph # (Auto) 2.3 [place] # (Auto) 1.0 Eos # (Auto) 0.1 Baso # (Auto) 0.0 Abs Immat Gran (auto) 0.02 Absolute Neuts (auto) 5.20 Absolute Nucleated RBC 0.000 Nucleated RBC % (auto) 0.0 Sodium 138 Potassium 4.1 4.2 Chloride 100 Carbon Dioxide 29 Anion Gap 13 BUN 11 Creatinine 1.00 Estim Creat Clear Calc 124.0 Estimated GFR > 60 Random Glucose 91 Calcium 9.2 Magnesium 1.9 1.9 Discharge Plan Discharge Patient Disposition: Home, Self-Care Discharge Diagnosis: Persistent atrial fibrillation Referrals: Physician,Unknown J [Primary Care Provider] - 2 days Discharge Medications: New amiodarone 200 mg tablet 200 mg PO DAILY Qty: 30 RF: 5 Continued amiodarone 400 mg tablet 400 mg PO BID Qty: 28 RF: 0 metoprolol succinate [Toprol XL] 100 mg tablet extended release 24 hr 100 mg PO DAILY Qty: 30 RF: 5 Eliquis 5 mg Tablet 5 mg PO BID Qty: 60 RF: 2 Discharge Orders: Discharge Order (Routine); Ordered 05/17/21 Ordered By: Donte David Diet: advance to usual diet Activity on Discharge: As tolerated Stand Alone Forms: Patient Portal Discharge page Care Plan Goals: Outpatient follow-up with Cardiology Health Concerns: Med compliance Plan of Treatment: Complete amiodarone 400 mg b.i.d. as ordered; start amiodarone 200 mg daily when and 400 b.i.d. is complete Assessment: Return to sinus rhythm Patient Instructions: Heart Failure (ED), A-fib (Atrial Fibrillation) (ED)
== END 2021-05-18 19:07 | disposition home or self-care (01) | DRG 308 ==
LOC: HO.ED 05:41 → HO.EDOVER 06:58 → HO.ED 07:09 → HO.EDOVER 07:17 → HO.S3 14:27 → HO.IMC 16:08 → HO.S3 16:21
PROVIDERS: Internal Medicine; Internal Medicine Cardiovascular Disease; Admitting Provider Hospitalist; Emergency Provider Student in an Organized Health Care Education/Training Program; Visit Provider Hospitalist
PROC: 5A2204Z Restoration of Cardiac Rhythm, Single (ICD-10-PCS; principal; 2021-05-18 16:30)
DX: I48.19 Other persistent atrial fibrillation (principal); I50.33 Acute on chronic diastolic (congestive) heart failure; I11.0 Hypertensive heart disease with heart failure; G47.33 Obstructive sleep apnea (adult) (pediatric); Z20.822 Contact with and (suspected) exposure to COVID-19; Z79.01 Long term (current) use of anticoagulants; Z79.899 Other long term (current) drug therapy
CPT/HCPCS: 36415; 71045; 80048; 80053; 83690; 83735; 83880; 84132; 84484; 85025; 85610; 87635; 93005; 99285; J1940

== ENCOUNTER → 2021-06-09 13:06 | Outpatient (BNVA) | payer MEDICARE, MEDICAID, SELFPAY | PROVIDERS: Visit Provider Internal Medicine | DX: I42.8 Other cardiomyopathies (principal); I48.0 Paroxysmal atrial fibrillation; I50.30 Unspecified diastolic (congestive) heart failure; E66.01 Morbid (severe) obesity due to excess calories; F10.10 Alcohol abuse, uncomplicated; G47.33 Obstructive sleep apnea (adult) (pediatric); Z99.89 Dependence on other enabling machines and devices | CPT/HCPCS: 93005; 99212 ==

== ENCOUNTER → 2021-07-04 19:47 | Outpatient (REF) | payer MEDICARE, MEDICAID, SELFPAY | LOC: HO.SL 19:47 | PROVIDERS: Visit Provider Psychiatry & Neurology Neurology | DX: Z13.89 Encounter for screening for other disorder (principal) ==

== ENCOUNTER → 2021-07-20 10:13 | Outpatient (BNVA) | payer MEDICARE, MEDICAID, SELFPAY | PROVIDERS: Visit Provider Psychiatry & Neurology Neurology | DX: G47.33 Obstructive sleep apnea (adult) (pediatric) (principal); E66.9 Obesity, unspecified; Z68.37 Body mass index [BMI] 37.0-37.9, adult | CPT/HCPCS: 99212 ==

== ENCOUNTER → 2021-09-15 09:34 | Outpatient (REF) | payer MEDICARE, MEDICAID, SELFPAY ==
--- NOTE | 2021-09-15 09:36 | CA_ITS ---
Transthoracic Echocardiogram Patient (Last, First, Middle): Nitesh Osorio, Gender: Male Date of : 1965 Age: 56 Procedure Date: 09/15/2021 Procedure Type: Transthoracic Echocardiogram Location: OP Height: 190.5 cm Weight: 129.28 kg BSA: 2.55 m2 Heart Rate: bpm BP: 110 / 75 mmHg Insole Toe Snipping Machine Operator: JEANNE Referring MD: Fabricio Chaudhary MD Experimental Preflight Mechanic: Joe Montemayor MD Symptoms: I42.8 - Other cardiomyopathies Study Quality: Fair ECG Rhythm: Sinus Conclusions: - Normal LV systolic function with mild LVH with impaired relaxation filling pattern and suggestion of increased filling pressures Findings Left Ventricle Normal left ventricular size and systolic function. There is mildly increased left ventricular wall thickness. The visually estimated ejection fraction is between 60-65%. Spectral Doppler is indicative of an impaired relaxation filling pattern. E/E prime ratio is >15, consistent with elevated filling pressures. Pericardium/Pleural There is no evidence of pericardial effusion. Prior Study Comparison Changes noted compared to prior study dated: 01/25/2021. compared to the PREM report LV systolic function is normal on this study Measurements 2D Linear Measurements IVSd: 1.26 0.6-0.9/0.6-1.0 cm LVIDd: 4.74 3.9-5.3/4.2-5.9 cm LVIDd Index: 1.86 2.4-3.2/2.2-3.1 cm/m2 LVIDs: 2.49 2.0-3.6 cm LVPWd: 1.25 0.7-1.1 cm LV Mass: 285.56 67-162/88-224 g LV Mass Index: 111.99 43-95/49-115 g/m2 2D Systolic Function EF 4C: 65.90 >55% EF 2C: 58.70 >55% EF BiP: 62.10 >55% Mitral Valve MV Pk E: 0.94 MV PK A: 0.88 MV Decel Time: 201.00 E/A: 1.10 E'Lateral: 7.07 E'Medial: 4.68 E/E' Med: 20.10 E/E' Lat: 13.30 PHT: 59.00 MVA PHT: 3.73 Decel Terry: 4.70 Diastolic Function MV Pk E: 0.94 MV Pk A: 0.88 E/A: 1.10 E'Medial: 4.68 E/E' Med: 20.10 E' Laterial: 7.07 E/E' Lat: 13.30 Updated in Other Vendor System with Status of Final Joe Montemayor MD electronically signed on 09/15/2021 3:37:15 PM with status of Final
== END ==
LOC: HO.CARD 09:34
PROVIDERS: PCP Internal Medicine; Visit Provider Internal Medicine
DX: I42.8 Other cardiomyopathies (principal)
CPT/HCPCS: 93308

== ENCOUNTER → 2021-10-05 09:03 | Outpatient (BNVA) | payer MEDICARE, MEDICAID, SELFPAY | PROVIDERS: PCP Internal Medicine; Visit Provider Psychiatry & Neurology Neurology | DX: G47.33 Obstructive sleep apnea (adult) (pediatric) (principal); E66.9 Obesity, unspecified; Z68.38 Body mass index [BMI] 38.0-38.9, adult | CPT/HCPCS: 99212 ==

== ENCOUNTER → 2021-12-28 13:52 | Outpatient (BNVA) | payer MEDICARE, MEDICAID, SELFPAY | PROVIDERS: Visit Provider Internal Medicine | DX: I48.0 Paroxysmal atrial fibrillation (principal); I42.8 Other cardiomyopathies; G47.33 Obstructive sleep apnea (adult) (pediatric); E66.01 Morbid (severe) obesity due to excess calories; Z68.37 Body mass index [BMI] 37.0-37.9, adult; F10.10 Alcohol abuse, uncomplicated; Z79.01 Long term (current) use of anticoagulants; Z99.89 Dependence on other enabling machines and devices | CPT/HCPCS: 93005; 99212 ==

== ENCOUNTER → 2022-01-07 09:10 | Outpatient (REF) | payer MEDICARE, MEDICAID, SELFPAY ==
--- NOTE | ~2022-01-07 | NM_ITS ---
Myocardial perfusion study Indication: Cardiomyopathy to evaluate for myocardial ischemia Technique: The patient was brought in for a Lexiscan perfusion study on 01/07/2022. Patient performed low-level exercise and was injected 0.4 mg of Lexiscan intravenously. Within a minute of injection, 45 mCi of sestamibi was given intravenously. Images were obtained using the SPECT gamma camera interlaced with the gating device. Images were obtained in supine position. Resting perfusion study was performed on 01/10/2022. Patient was administered 45 mCi of sestamibi intravenously at rest. Images were then obtained in supine position. Images obtained with and without CT attenuation. Total DLP 99 mGy-cm. Images were processed with the software and compared side to side in short axis, horizontal long axis and vertical long axis views. Findings: The stress perfusion study showed non attenuated images show small area of mildly reduced uptake in the basal inferior wall of the LV myocardium. Remainder of the LV myocardium is normally perfused. Attenuation corrected images show mildly reduced uptake in the apex of the LV myocardium. The gated study shows normal LV systolic function with calculated LVEF of 62%. LV cavity is normal in size. The gated study shows normal systolic wall thickening and contraction of segments. Resting study shows no change in perfusion pattern compared to stress perfusion study. Gating at rest reveals normal systolic wall motion with ejection fraction at 53%. The findings are consistent with reversible defect suggestive of ischemia. Normal myocardial perfusion. NM/NM cardiolite stress test Impression: 1. Myocardial perfusion imaging study shows normal myocardial perfusion 2. Gated LVEF is 62% 3. Transient ischemic dilatation not present EKG is nondiagnostic for ischemia
--- NOTE | 2022-01-07 09:19 | CA_ITS ---
Acquisition Time: 2022-01-07 09:31:59 Total Exercise Time: 00:04:16 Test Indications: AFIB Medications: SEE CHART Protocol: JALEESA Max HR: 126 BPM 75% of Pred: 166 BPM Max BP: 162/086 mmHG Max Work Load: 6.1 METS Exercise stress test with exercise 4 min 16 sec of Jaleesa protocol, with moderate sob and hip discomfort with request to stop exercise. EKGs nondiagnostic for ischemia due to suboptimal heart rate. Pt assisted to sitting position and test changed to pharmacological stress test with Lexiscan injeciton, without anginal symptoms, without arrythmia, with normotensive response to injection, without EKG changes meeting criteria for ischemia. In recovery he reported feeling hot and lightheaded, which was treated with Aminophylline 75mg IVP to reverse Lexiscan with resolution of symptoms. Nuclear images pending. Test reviewed with Dr Montemayor. Referred By: Fabricio Chaudhary Overread By: MIK BARRY
== END ==
LOC: HO.CARD 09:10
PROVIDERS: PCP Internal Medicine; Visit Provider Internal Medicine
DX: I42.8 Other cardiomyopathies (principal)
CPT/HCPCS: 78452; 93017; A9500; J0280; J2785

== ENCOUNTER → 2022-07-04 13:54 | Outpatient (BNVA) | payer MEDICARE, MEDICAID, SELFPAY | PROVIDERS: PCP Internal Medicine; Referring Provider Internal Medicine; Visit Provider Internal Medicine | DX: I48.0 Paroxysmal atrial fibrillation (principal); I42.8 Other cardiomyopathies; E66.01 Morbid (severe) obesity due to excess calories; F10.10 Alcohol abuse, uncomplicated; G47.33 Obstructive sleep apnea (adult) (pediatric); Z99.89 Dependence on other enabling machines and devices; Z68.37 Body mass index [BMI] 37.0-37.9, adult | CPT/HCPCS: 93005; 99212 ==

== ENCOUNTER 2022-07-06 15:14 | Outpatient (REF) | payer MEDICARE, MEDICAID, SELFPAY ==
[2022-07-06 16:35] LABS: Hematocrit 41.9 % (42.0-52.0); Hemoglobin 13.9 g/dl (14.0-18.0); Mean Corpuscular HGB Conc 33.2 g/dl (31.0-36.0); Mean Corpuscular Hemoglobin 30.2 pg (27.0-33.0); Mean Corpuscular Volume 90.9 fL (80.0-98.0); Platelet Count 272 X10*3/uL (160-400); Red Blood Count 4.61 X10*6/uL (4.60-5.80); Red Cell Distribution Width 11.9 % (11.0-16.0); White Blood Count 7.4 X10*3/uL (4.8-10.8)
[2022-07-06 16:55] LABS: Anion Gap 14 (12-20); Blood Urea Nitrogen 10 mg/dL (9-16); Calcium 9.4 mg/dL (8.4-10.2); Carbon Dioxide 26 mmol/L (22-29); Chloride 100 mmol/L (96-108); Estimated Glomerular Filt Rate > 60; Glucose Random 108 mg/dL (60-115); Potassium 4.1 mmol/L (3.3-5.1); Sodium 136 mmol/L (135-145)
== END 2022-07-06 15:15 | disposition home or self-care (01) ==
LOC: HO.LAB 15:14
PROVIDERS: PCP Internal Medicine; Visit Provider Internal Medicine
DX: I48.0 Paroxysmal atrial fibrillation (principal)
CPT/HCPCS: 36415; 80048; 85027

== ENCOUNTER → 2022-07-21 10:14 | Day surgery (SDC) | payer MEDICARE, MEDICAID, SELFPAY ==
[2022-07-15 13:23] VITALS: BMI 37.6
--- NOTE | 2022-07-20 10:54 | P.CONAN_ITS ---
HPI - Anesthesia Eval Consult details Narrative: 57yo M for Cardioversion Eliquis for afib [facility] Active Problems Active Problems: All Active Problems (Updated 07/15/22 @ 13:10 by Taryn Damon RN) Alcoholic fatty liver (Acute) Hypersomnia (Acute) Thrombus of left atrial appendage (Acute) Obstructive sleep apnea (Acute) Obesity (Acute) PAF (paroxysmal atrial fibrillation) (Acute) Morbid obesity (Acute) Acute diastolic (congestive) heart failure (Acute) SOB (shortness of breath) (Acute) NICM (nonischemic cardiomyopathy) (Acute) FARHEEN on CPAP (Acute) Alcohol abuse (Acute) HTN (hypertension) (Acute) (HFpEF) heart failure with preserved ejection fraction (Acute) Atrial fibrillation (Acute) Past Medical History Medical History (Updated 07/15/22 @ 13:10 by Taryn Damon RN) (HFpEF) heart failure with preserved ejection fraction Alcohol abuse Atrial fibrillation History of cardioversion HTN (hypertension) FARHEEN on CPAP Family History Family History Mother HTN (hypertension) Diabetes mellitus Father Diabetes mellitus HTN (hypertension) Family history of problems with anesthesia: No Surgical History Surgical History S/P hip replacement Status post ORIF of fracture of ankle History of Problems with Anesthesia: No Social History Social History (Updated 07/04/22 @ 14:07 by Roxane Johnson) Household Members: Family Household Members Other:: Girlfriend and daughter Housing: House Are you a primary home care provider to a significant other at home: No Do you presently have visiting nurse or other home services: No Alcohol intake: current Alcohol intake frequency: a few times a week Alcohol type: beer Patient Tobacco Use Status: Never used Tobacco Substance Use Type: Marijuana Advance Directives Date on File: 01/25/21 service: No Current occupational status: unemployed Meds Allergies Allergy/AdvReac Type Severity Reaction Status Date / Time No Known Allergies Allergy Verified 07/04/22 14:04 Exam Exam Date and Time: July 20, 2022 1054 Height,Weight and Vital Signs: Height 6 ft 3 in Weight 136.531 kg Narrative Narrative: ECHO 09/2021 Conclusions: - Normal LV systolic function with mild LVH with impaired? relaxation filling pattern and suggestion of increased filling ? pressures? ?? EKG 06/2022 atrial fibrillation at a rate of 117/Min NM cardiolite stress test 12/2021 Impression: ? 1.? Myocardial perfusion imaging study shows normal myocardial perfusion 2.? Gated LVEF is 62% 3. Transient ischemic dilatation not present ? EKG is nondiagnostic for ischemia Assessment and Plan Assessment Anesthesia Assessment: Chart Reviewed Final Anesthetic Review Family History of Problems with Anesthesia: No History of Problems with Anesthesia: No
--- NOTE | 2022-07-21 11:45 | PC.NURSE ---
dR. MOE TO BEDSIDE PATIENT RECOGNIZED TO BE IN SINUS RYTHM AND CLEARED PATIENT TO BE DISCHARGED HOME.
== END ==
PROVIDERS: PCP Internal Medicine; Visit Provider Internal Medicine
DX: I48.19 Other persistent atrial fibrillation (principal); Z53.8 Procedure and treatment not carried out for other reasons

== ENCOUNTER → 2022-07-28 14:56 | Outpatient (BNVA) | payer MEDICARE, MEDICAID, SELFPAY | PROVIDERS: PCP Internal Medicine; Visit Provider Internal Medicine | DX: I48.0 Paroxysmal atrial fibrillation (principal); R00.2 Palpitations; I49.3 Ventricular premature depolarization | CPT/HCPCS: 93005 ==

== ENCOUNTER 2022-09-26 02:21 | Emergency (ER) | payer OTHER, SELFPAY ==
--- NOTE | ~2022-09-26 | XR_ITS ---
EXAMINATION: XR CHEST CLINICAL INFORMATION: Suspicion for pulmonary edema. COMPARISON: 05/17/2021 TECHNIQUE: Frontal view of the chest was obtained. FINDINGS: Normal symmetric lung volumes. No parenchymal consolidation. No pleural effusion. No pneumothorax. Cardiomediastinal silhouette and pulmonary vascularity are within normal limits. Aorta is atherosclerotic. No acute osseous abnormalities. XR/XR chest 1V IMPRESSION: No pulmonary edema.
--- NOTE | 2022-09-26 02:23 | ECG_ITS ---
Test Reason : CHEST PAIN Blood Pressure : / mmHG Vent. Rate : 077 BPM Atrial Rate : 077 BPM P-R Int : 168 ms QRS Dur : 082 ms QT Int : 408 ms P-R-T Axes : 036 008 037 degrees QTc Int : 461 ms Sinus rhythm with frequent Premature ventricular complexes Otherwise normal ECG When compared with ECG of 18-MAY-2021 17:15, T wave amplitude has increased in Lateral leads Referred By: Generic ED Physician Electronically Signed By:Tato Delgado
[2022-09-26 02:38] VITALS: BP 191/103; PULSE 78; RESP 22; TEMP 36.9; O2SAT 96; BMI 37.5
[2022-09-26 02:39] LABS: MANUAL DIFF FLAG NO
[2022-09-26 02:40] LABS: Basophils Absolute Auto 0.1 X10*3/uL (0.0-0.2); Basophils Percent Auto 1.1 % (0-2); Eosinophils Absolute Auto 0.1 X10*3/uL (0.0-0.4); Eosinophils Percent Auto 0.6 % (0-4); Hematocrit 41.7 % (42.0-52.0); Imm Gran Abs Auto 0.01 X10*3/uL (0.00-0.03); Imm Gran Pct Auto 0.1 % (0.0-0.4); Lymphocytes Absolute Auto 2.4 X10*3/uL (1.2-4.9); Lymphocytes Percent Auto 30.4 % (20-40); Mean Corpuscular HGB Conc 33.6 g/dl (31.0-36.0); Mean Corpuscular Hemoglobin 29.9 pg (27.0-33.0); Mean Corpuscular Volume 89.1 fL (80.0-98.0); Mean Platelet Volume 10.7 fL (9.4-12.4); Monocytes Absolute Auto 0.7 X10*3/uL (0.1-1.2); Monocytes Percent Auto 9.2 % (2-11); Neutrophils Absolute Auto 4.6 x10*3/uL (2.0-8.3); Neutrophils Percent Auto 58.6 % (45-73); Platelet Count 257 X10*3/uL (160-400); Red Blood Count 4.68 X10*6/uL (4.60-5.80); Red Cell Distribution Width 12.8 % (11.0-16.0); White Blood Count 7.8 X10*3/uL (4.8-10.8)
[2022-09-26 02:50] LABS: INTERNATIONAL NORM RATIO 1.3 (0.9-1.1); Prothrombin Time 14.6 SEC (10.0-13.1)
[2022-09-26 02:54] LABS: Anion Gap 18 (12-20); Blood Urea Nitrogen 8 mg/dL (9-16); Calcium 9.5 mg/dL (8.4-10.2); Carbon Dioxide 22 mmol/L (22-29); Chloride 102 mmol/L (96-108); Creatinine Clr Calc Pharmacy 144.3; Estimated Glomerular Filt Rate > 60; Glucose Random 114 mg/dL (60-115); Sodium 138 mmol/L (135-145)
--- NOTE | 2022-09-26 03:23 | ED.ARRPALP ---
HPI - Arrhythmia/Palpitations General Chief Complaint: Arrhythmia/Palpitations Stated Complaint: chest pain Time Seen by Provider: 09/26/22 03:23 Source: patient Mode of arrival: ambulatory Limitations: no limitations History of Present Illness HPI narrative: Patient comes to the emergency room complaining of heart palpitations. Patient states that after dinner he went to sleep, patient woke up with palpitations, no chest pain. Patient states that the last time that he had the sensation he was diagnosed with atrial fibrillation. Patient usually sees Dr. Chaudhary, patient states he is compliant with his medications, takes metoprolol and Eliquis as prescribed. At this time, patient is asymptomatic Related Data Previous Rx's Medication Instructions Recorded apixaban 5 mg tablet (Eliquis) 5 mg PO BID 90 days #180 tabs 01/31/22 metoprolol succinate 100 mg 100 mg PO DAILY #90 tabs 05/25/22 tablet,extended release 24 hr (Toprol XL) flecainide 100 mg tablet 100 mg PO Q12H 90 days #180 tabs 07/21/22 metoprolol succinate 25 mg 25 mg PO DAILY 90 days #90 tabs 08/29/22 tablet,extended release 24 hr (Toprol XL) Allergies Allergy/AdvReac Type Severity Reaction Status Date / Time No Known Allergies Allergy Verified 09/26/22 02:40 Review of Systems Review of Systems: Constitutional : No Weight loss, No Fever, No Chills, No Night Sweats, No Fatigue, No Malaise ENT/Mouth : No Hearing loss, No Ear Pain, No Nasal Congestion, No Sinus Pain, No Hoarseness, No sore throat, No Rhinorrhea, No Swallowing Difficulty Eyes: No Eye Pain, No Swelling, No Redness, No Foreign Body, No Discharge, No Vision Changes Cardiovascular : No Chest Pain, No SOB, No Dyspnea on Exertion, No Orthopnea, No Edema, complaining of Palpitations that resolved Respiratory : No Cough, No Sputum, No Wheezing, No Smoke Exposure, No Dyspnea Gastrointestinal : No Nausea, No Vomiting, No Diarrhea, No Constipation, No abdominal Pain, No Hematochezia, No Melena Genitourinary : no irregular bleeding, No Dysuria, No Urinary Frequency, No Hematuria, No Urinary Incontinence, No Urgency, No Flank Pain, No Urinary Flow Changes, No Hesitancy Musculoskeletal : No joint pain, No Myalgias, No Joint Swelling Skin : No Skin Lesions, No rash Neuro : No Weakness, No Numbness, No Paresthesias, No Loss of Consciousness, No Dizziness, No Headache Psych : No Anxiety/Panic, No Depression, No SI/HI/AH/VH, No Social Issues, Heme/Lymph: No Bruising, No Bleeding,No Lymphadenopathy Endocrine : No Polyuria, No Polydipsia, No Temperature Intolerance [facility] Past Medical History Medical History (HFpEF) heart failure with preserved ejection fraction Alcohol abuse Atrial fibrillation History of cardioversion HTN (hypertension) FARHEEN on CPAP Surgical History S/P hip replacement Status post ORIF of fracture of ankle Family History Family History Mother HTN (hypertension) Diabetes mellitus Father Diabetes mellitus HTN (hypertension) Social History Social History (Updated 07/04/22 @ 14:07 by Roxane Johnson) Household Members: Family Household Members Other:: Girlfriend and daughter Housing: House Are you a primary patient care technician instructor to a significant other at home: No Do you presently have visiting nurse or other home services: No Alcohol intake: current Alcohol intake frequency: does not drink Alcohol type: beer Patient Tobacco Use Status: Never used Tobacco Smoked in Last 30 Days: No Use of substances other than those prescribed or required for medical reasons: No Substance Use Type: Marijuana Advance Directives: Yes Advance Directives on File: Yes Advance Directives Date on File: 01/25/21 service: No Current occupational status: unemployed Physical Exam Vital Signs: Vital Signs: Last Vital Signs Temp 98.3 F 09/26/22 03:33 Pulse 86 09/26/22 03:55 Resp 14 09/26/22 03:33 BP 143/86 H 09/26/22 03:55 Pulse Ox 98 09/26/22 03:55 O2 Del Method 09/26/22 03:55 BMI result Body Mass Index 37.5 Const: Other: Appearance: Alert. Oriented X3. No acute distress. Eyes: Pupils equal, round and reactive to light. ENT: Pharynx normal. Neck: Normal inspection. Neck supple. No lymph nodes noted. No crepitus CVS: Normal heart rate and rhythm. Pulses normal. Normal S1 and S2 Respiratory: No respiratory distress. Breath sounds normal. No Wheezing. No rales Abdomen: Soft and nontender. No rigidity. No distention. Skin: Skin warm and dry. Normal skin color. Normal skin turgor. Extremities: No lower extremity edema. No Lacerations. No Rash Neuro: Oriented X 3. No motor deficit. No sensory deficit. Moving all extremities. No slurred speech. CN 2 through 12 grossly intact Psych: calm, cooperative, normal affect Course Course Course Narrative: -labs, EKG and imaging pending -patient's vitals stable, BP elevated on arrival, patient complaining of anxiety when he arrived, resolved at this time. No chest pain or shortness of breath. Medical Decision Making Medical Decision Making [facility] Narrative: -EKG interpreted by me: Sinus rhythm, heart rate 78, no ST segment depressions or elevations, no T-wave inversions, QTC 458, occasional PVCs -chest x-ray shows no pulmonary edema -sinus rhythm, heart rate controlled, blood pressure improved without any treatment from 191/103 to 143/86 -no medication changes were made -patient is symptomatic Differential Diagnosis Differential Diagnoses: The differential diagnosis associated with the presentation includes (Atrial fibrillation, PVCs, SVT) Lab Data [facility] Lab Attestation statement: I reviewed the patient's lab results. 09/26/22 02:34 09/26/22 02:34 Labs: Lab Results 09/26/22 09/26/22 09/26/22 Range/Units 02:34 02:34 02:34 WBC 7.8 (4.8-10.8) X10*3/uL RBC 4.68 (4.60-5.80) X10*6/uL Hgb 14.0 (14.0-18.0) g/dl Hct 41.7 L (42.0-52.0) % MCV 89.1 (80.0-98.0) fL MCH 29.9 (27.0-33.0) pg MCHC 33.6 (31.0-36.0) g/dl RDW 12.8 (11.0-16.0) % Plt Count 257 (160-400) X10*3/uL MPV 10.7 (9.4-12.4) fL Immature Gran % (Auto) 0.1 (0.0-0.4) % Neut % (Auto) 58.6 (45-73) % Lymph % (Auto) 30.4 (20-40) % [place] % (Auto) 9.2 (2-11) % Eos % (Auto) 0.6 (0-4) % Baso % (Auto) 1.1 (0-2) % Lymph # (Auto) 2.4 (1.2-4.9) X10*3/uL [place] # (Auto) 0.7 (0.1-1.2) X10*3/uL Eos # (Auto) 0.1 (0.0-0.4) X10*3/uL Baso # (Auto) 0.1 (0.0-0.2) X10*3/uL Abs Immat Gran (auto) 0.01 (0.00-0.03) X10*3/uL Absolute Neuts (auto) 4.6 (2.0-8.3) x10*3/uL Absolute Nucleated RBC 0.000 (0.0-0.012) X10*3/uL Nucleated RBC % (auto) 0.0 (0.0-0.2) /100WBC PT (10.0-13.1) SEC INR (0.9-1.1) Sodium 138 (135-145) mmol/L Potassium 4.0 (3.3-5.1) mmol/L Chloride 102 (96-108) mmol/L Carbon Dioxide 22 (22-29) mmol/L Anion Gap 18 (12-20) BUN 8 L (9-16) mg/dL Creatinine 0.86 (0.5-1.4) mg/dL Estim Creat Clear Calc 144.3 Estimated GFR > 60 Random Glucose 114 (60-115) mg/dL Calcium 9.5 (8.4-10.2) mg/dL Troponin I High Sens 5.0 (<3.5-35.0) ng/L B-Natriuretic Peptide (<100) pg/mL TSH 1.32 (0.32-4.0) uIU/mL 09/26/22 09/26/22 Range/Units 02:34 02:34 WBC (4.8-10.8) X10*3/uL RBC (4.60-5.80) X10*6/uL Hgb (14.0-18.0) g/dl Hct (42.0-52.0) % MCV (80.0-98.0) fL MCH (27.0-33.0) pg MCHC (31.0-36.0) g/dl RDW (11.0-16.0) % Plt Count (160-400) X10*3/uL MPV (9.4-12.4) fL Immature Gran % (Auto) (0.0-0.4) % Neut % (Auto) (45-73) % Lymph % (Auto) (20-40) % [place] % (Auto) (2-11) % Eos % (Auto) (0-4) % Baso % (Auto) (0-2) % Lymph # (Auto) (1.2-4.9) X10*3/uL [place] # (Auto) (0.1-1.2) X10*3/uL Eos # (Auto) (0.0-0.4) X10*3/uL Baso # (Auto) (0.0-0.2) X10*3/uL Abs Immat Gran (auto) (0.00-0.03) X10*3/uL Absolute Neuts (auto) (2.0-8.3) x10*3/uL Absolute Nucleated RBC (0.0-0.012) X10*3/uL Nucleated RBC % (auto) (0.0-0.2) /100WBC PT 14.6 H (10.0-13.1) SEC INR 1.3 H (0.9-1.1) Sodium (135-145) mmol/L Potassium (3.3-5.1) mmol/L Chloride (96-108) mmol/L Carbon Dioxide (22-29) mmol/L Anion Gap (12-20) BUN (9-16) mg/dL Creatinine (0.5-1.4) mg/dL Estim Creat Clear Calc Estimated GFR Random Glucose (60-115) mg/dL Calcium (8.4-10.2) mg/dL Troponin I High Sens (<3.5-35.0) ng/L B-Natriuretic Peptide 151 H (<100) pg/mL TSH (0.32-4.0) uIU/mL Independent Interpretation I performed an independent interpretation of an: Plain X-Ray (My chest x-ray interpretation: No pulmonary edema) Radiology Impression Discussion of test interpretation with radiology: I have reviewed the radiologist's reading. Radiologist Impression: Normal symmetric lung volumes. No parenchymal consolidation. No pleural effusion. No pneumothorax.? Cardiomediastinal silhouette and pulmonary vascularity are within normal limits. Aorta is atherosclerotic. No acute osseous abnormalities. XR/XR chest 1V IMPRESSION: No pulmonary edema. Discharge Plan Discharge Clinical Impression: Palpitations Patient Disposition: Home, Self-Care Instructions: Heart Palpitations (ED) Additional Instructions: Please follow-up with your primary care physician tomorrow. If you have any worsening or new symptoms, please return to the emergency room or call 911 Prescriptions: No Action Eliquis 5 mg tablet 5 mg PO BID 90 Days Qty: 180 3RF metoprolol succinate [Toprol XL] 100 mg tablet extended release 24 hr 100 mg PO DAILY Qty: 90 3RF flecainide 100 mg tablet 100 mg PO Q12H 90 Days Qty: 180 3RF metoprolol succinate [Toprol XL] 25 mg tablet extended release 24 hr 25 mg PO DAILY 90 Days Qty: 90 1RF
[2022-09-26 03:33] VITALS: BP 168/91; PULSE 74; RESP 14; TEMP 36.8; O2SAT 93
[2022-09-26 03:42] LABS: B Type Natriuretic Peptide 151 pg/mL (<100)
[2022-09-26 03:55] VITALS: BP 143/86; PULSE 86; O2SAT 98
[2022-09-26 03:57] LABS: TSH reflex Free T4 1.32 uIU/mL (0.32-4.0)
--- NOTE | 2022-09-26 06:07 | PC.NURSE ---
pt a&o, no sob or chest pain, no sign of distress, Reviewed discharge instruction with pt. pt verbalized understanding.
--- NOTE | 2022-09-26 07:44 | ECG_ITS ---
Test Reason : CHEST PAIN Blood Pressure : / mmHG Vent. Rate : 078 BPM Atrial Rate : 078 BPM P-R Int : 178 ms QRS Dur : 082 ms QT Int : 402 ms P-R-T Axes : 038 -03 027 degrees QTc Int : 458 ms Sinus rhythm with frequent Premature ventricular complexes Otherwise normal ECG When compared with ECG of 26-SEP-2022 02:27, No significant change was found Referred By: Tanvi Brito Electronically Signed By:Tato Delgado
== END 2022-09-26 06:11 | disposition home or self-care (01) ==
PROVIDERS: Emergency Provider Emergency Medicine
DX: R00.2 Palpitations (principal); R07.89 Other chest pain; R06.02 Shortness of breath; Z79.899 Other long term (current) drug therapy
CPT/HCPCS: 36415; 71045; 80048; 83880; 84443; 84484; 85025; 85610; 93005; 99284; 99285

== ENCOUNTER → 2022-10-17 11:32 | Outpatient (REF) | payer OTHER, MEDICAID, SELFPAY ==
--- NOTE | 2022-10-17 11:35 | HM_ITS ---
* Total monitoring time about 3 days. * Underlying rhythm is sinus. Average ventricular rate 76/Min. Range 64 to 107/Min. * Frequent ventricular ectopy. Bullock of 13.7%. Some bigeminy and trigeminy. 3 morphologies. No runs noted. * Occasional supraventricular ectopy. Bullock of 0.5%. Very brief runs noted. * No significant pauses or AV blocks. * No patient markers or events in diary. MTDD
== END ==
LOC: HO.CARD 11:32
PROVIDERS: Visit Provider Internal Medicine
DX: I48.0 Paroxysmal atrial fibrillation (principal); R00.2 Palpitations
CPT/HCPCS: 93242

== ENCOUNTER 2023-04-19 14:46 | Outpatient (REF) | payer OTHER, SELFPAY ==
[2023-04-19 15:36] LABS: Anion Gap 19 (12-20); Blood Urea Nitrogen 20 mg/dL (9-16); Calcium 10.3 mg/dL (8.4-10.2); Carbon Dioxide 22 mmol/L (22-29); Chloride 99 mmol/L (96-108); Estimated Glomerular Filt Rate 43; Glucose Random 105 mg/dL (60-115); Potassium 4.6 mmol/L (3.3-5.1); Sodium 135 mmol/L (135-145)
[2023-04-19 16:08] LABS: B Type Natriuretic Peptide 74 pg/mL (<100)
== END 2023-04-19 14:47 | disposition home or self-care (01) ==
LOC: HO.LAB 14:46
PROVIDERS: Visit Provider Internal Medicine
DX: I42.8 Other cardiomyopathies (principal); I50.31 Acute diastolic (congestive) heart failure; I48.91 Unspecified atrial fibrillation
CPT/HCPCS: 36415; 80048; 83735; 83880

== ENCOUNTER 2023-04-25 13:17 | Outpatient (AMB) | payer OTHER, MEDICAID, SELFPAY ==
[2023-04-25 13:32] VITALS: BP 84/56; PULSE 72; BMI 36.1
--- NOTE | 2023-04-25 13:32 | MHC.OFFVIS ---
Intake Vital Signs 04/25/23 13:32 Height 6 ft 3 in Weight 288 lb 12.889 oz BMI 36.1 BP 84/56 L Blood Pressure Location Lt brachial Position Sitting Pulse 72 Intake Visit Reasons: FU NEW [employer] ICD Intake Note: follow up new device check w/ EKG Inspector Filters Required: No Accompanied by: Self / Same As Patient Allergies No Known Allergies Allergy (Verified 04/25/23 13:33) Medication List - Last Reconciled 04/25/23 by Fabricio Chaudhary MD amiodarone 200 mg PO DAILY apixaban (Eliquis) 5 mg PO BID 90 days hydrochlorothiazide 12.5 mg PO DAILY lisinopril 20 mg PO DAILY metoprolol succinate ER 200 mg PO DAILY nifedipine ER 30 mg PO DAILY HPI HPI Comments History of Present Illness Details Nitesh returns for follow-up regarding atrial fibrillation and cardiomyopathy. Complicated history. History of atrial fibrillation with prior cardioversions. He was maintained on flecainide. Recently, he was in [place] during camping for the summer time. At that time, it seems he was drinking a lot, has had several beers. Following that, presyncopal type symptoms leading to emergent medical care. Apparently, he was in atrial fibrillation rapid rate that degenerated into ventricular tachycardia type rhythm. That required emergent cardioversion. Eventually, admitted to local hospital where he underwent cardiac catheterization as well as ICD placement. Since that time, seems to have improved quite well. States he has cut back a lot on alcohol. Otherwise, tries to take his medications more religiously. Blood pressure is running on the lower side and he gets some dizziness off and on. All meds were reviewed in detail with him. [facility] Medical History (HFpEF) heart failure with preserved ejection fraction Alcohol abuse Atrial fibrillation History of cardioversion HTN (hypertension) FARHEEN on CPAP Surgical History Status post ORIF of fracture of ankle S/P hip replacement Family History Mother HTN (hypertension) Diabetes mellitus Father Diabetes mellitus HTN (hypertension) Social History Household Members: Family Household Members Other:: Girlfriend and daughter Housing: House Are you a primary hearing healthcare practitioner to a significant other at home: No Do you presently have visiting nurse or other home services: No Alcohol intake: current Alcohol intake frequency: does not drink Alcohol type: beer Patient Tobacco Use Status: Never used Tobacco Substance Use Type: Marijuana Advance Directives Date on File: 01/25/21 service: No Current occupational status: unemployed Review of Systems Const Denies weakness ENT Denies dizziness Card Denies chest pain, Denies chest pain with activity, Denies syncope, Denies rapid heart rate, Denies pedal edema, Denies edema, Denies leg edema, Denies lightheadedness, Denies palpitations, Denies dyspnea, Denies dyspnea on exertion and Denies orthopnea Resp Denies cough, Denies dyspnea and Denies dyspnea on exertion GI Denies hematochezia and Denies change in stool character Musc Denies abnormal gait, Denies muscle cramps, Denies muscle weakness, Denies numbness, Denies radiating pain into limb and Denies tingling Neuro Denies abnormal gait, Denies dizziness, Denies syncope, Denies numbness, Denies tingling and Denies weakness Endo Denies palpitations Physical Exam Vital Signs: Last Vital Signs Pulse 72 04/25/23 13:32 BP 84/56 L 04/25/23 13:32 BMI result Body Mass Index 36.1 Const General: comfortable and no acute distress Orientation/consciousness: patient oriented x3 HEENT Other: Unremarkable Head: Yes normal to inspection Neck Neck: Yes normal visual inspection Chest Chest palpation & inspection: normal inspection of the chest Resp Auscultation: clear to auscultation bilaterally Cardio Palpation: normal PMI Heart sounds: S1 normal heart sound present, S2 normal heart sound present, no gallops, no murmurs and no rubs GI Palpation (GI): Soft to palpation Back/Spine/Pelvis Other: unremarkable Skin General skin exam: no rashes or lesions noted Neuro General: patient oriented x3 Extrem General: Yes normal to inspection Psych Mental Status: mental status grossly normal Office Procedures Cardiac Device Check Cardiac Device Check Details: ICD interrogated today. Single-chamber device. Battery status more than 13 years. Normal lead parameters. No treated episodes. No atrial fibrillation episodes. Ventricular pacing about 13%. Overall, normal device function. [id number] Cardiac Device Check, single lead implantable defibrillator Procedure code (CPT) selection complete EKG Details: EKG with sinus rhythm at 72/Min; no significant ST-T changes and otherwise unremarkable[place]. [id number], Complete Assessment & Plan Assessment & Plan (1) PAF (paroxysmal atrial fibrillation): Code(s): I48.0 - Paroxysmal atrial fibrillation Plan: For the time being, he is on amiodarone. Previously on flecainide but stopped after the cardiac arrest episode. Also on a significant dose of beta-blockers. On Eliquis. Will keep the regimen for now but I suspect it would be appropriate for him to be seen by EP in the future for atrial fibrillation ablation. (2) NICM (nonischemic cardiomyopathy): Code(s): I42.8 - Other cardiomyopathies Plan: In the past, suspected tachycardia induced cardiomyopathy. Then recovered EF. Per [place] records, apparently apical akinesis. LVEF was 64%. Cardiac catheterization 02/2023 with normal coronary arteries. We will recheck echocardiogram. Also obtain cardiac MRI to assess for scar. (3) Ventricular tachycardia: Code(s): I47.20 - Ventricular tachycardia, unspecified Plan: Per [place] records, it seems he was in atrial fibrillation with very rapid rate and then started having QRS widening. Hence not clear if it is just atrial fibrillation or truly VT. Any case, he is back to normal sinus rhythm and has not had any rhythm issues with ICD monitoring. Continue Amiodarone for the foreseeable future. Duration to be decided. Cardiac MRI as above to assess for scar. (4) Idiopathic hypotension: Code(s): I95.0 - Idiopathic hypotension Plan: Blood pressure is low today and he also has dizziness type symptoms. All meds reviewed in detail individually. Will stop the nifedipine. Stop hydrochlorothiazide. Given a script for home blood pressure monitoring kit. He will record them and contact us as needed. (5) Alcohol abuse: Code(s): F10.10 - Alcohol abuse, uncomplicated Plan: He states that he has cut back a lot. He is well aware of cardiovascular risks from excessive drinking. Discussed in detail today. (6) Morbid obesity: Code(s): E66.01 - Morbid (severe) obesity due to excess calories Plan: Eventually, needs to lose substantial amount of weight to minimize cardiac issues. (7) FARHEEN on CPAP: Code(s): G47.33 - Obstructive sleep apnea (adult) (pediatric); Z99.89 - Dependence on other enabling machines and devices Plan: Continue CPAP. Plan Total time spent including review of records from [place], counseling, documentation, review of medications, coordination of care-60 minutes. Orders: Orders CA echo transthoracic complete Today I42.8 - Other cardiomyopathies, I47.20 - Ventricular tachycardia, unspecified MR cardiac morph fnct w con Today I42.9 - Cardiomyopathy, unspecified, I46.9 - Cardiac arrest, cause unspecified, I47.20 - Ventricular tachycardia, unspecified Medications: Discontinued nifedipine ER Discontinued Reason: Doctor's Order 30 mg PO DAILY 90 tabs 3RF Coding Level of Care Code Est Pt Level 5 (68473) Diagnoses PAF (paroxysmal atrial fibrillation) I48.0 NICM (nonischemic cardiomyopathy) I42.8 Ventricular tachycardia I47.20 Idiopathic hypotension I95.0 Alcohol abuse F10.10 Morbid obesity E66.01 FARHEEN on CPAP G47.33; Z99.89 CPT Codes Cardiac Device Check - Cardiac Device 4: [id number] Cardiac Device Check, single lead implantable defibrillator ([id number]) EKG - CPT: 04947-Ppowadlqcpvrhuyjp, Complete ([id number])
== END 2023-04-25 14:57 | disposition home or self-care (01) ==
PROVIDERS: PCP Nurse Practitioner Family; Visit Provider Internal Medicine
DX: I48.0 Paroxysmal atrial fibrillation (principal); I42.8 Other cardiomyopathies; I47.20 Ventricular tachycardia, unspecified; I95.0 Idiopathic hypotension; Z95.810 Presence of automatic (implantable) cardiac defibrillator
CPT/HCPCS: 93282; 99215

== ENCOUNTER → 2023-04-25 13:17 | Outpatient (BNVA) | payer OTHER, MEDICAID, SELFPAY | PROVIDERS: PCP Nurse Practitioner Family; Visit Provider Internal Medicine | DX: I48.0 Paroxysmal atrial fibrillation (principal); I42.8 Other cardiomyopathies; I47.20 Ventricular tachycardia, unspecified; I95.0 Idiopathic hypotension; G47.33 Obstructive sleep apnea (adult) (pediatric); E66.01 Morbid (severe) obesity due to excess calories; Z68.36 Body mass index [BMI] 36.0-36.9, adult; F10.10 Alcohol abuse, uncomplicated; Z45.018 Encounter for adjustment and management of other part of cardiac pacemaker; Z79.01 Long term (current) use of anticoagulants; Z79.899 Other long term (current) drug therapy; Z99.89 Dependence on other enabling machines and devices | CPT/HCPCS: 93005; 99212 ==

== ENCOUNTER → 2023-05-07 23:59 | Outpatient (BNV) | payer OTHER, SELFPAY ==
--- NOTE | 2023-05-15 14:34 | A.OFFVIS_ITS ---
Intake Intake Visit Reasons: Remote ICD Check- [employer] Allergies No Known Allergies Allergy (Verified 05/12/23 09:32) [facility] Medical History (Updated 05/12/23 @ 09:31 by YESY Martinez) History of cardioversion FARHEEN on CPAP Alcohol abuse HTN (hypertension) (HFpEF) heart failure with preserved ejection fraction Atrial fibrillation Surgical History Status post ORIF of fracture of ankle S/P hip replacement Family History Mother HTN (hypertension) Diabetes mellitus Father Diabetes mellitus HTN (hypertension) Social History (Updated 05/12/23 @ 09:31 by YESY Martinez) Household Members: Family Household Members Other:: Girlfriend and daughter Housing: Apartment Are you a primary residential care facility manager to a significant other at home: No Do you presently have visiting nurse or other home services: No Alcohol intake: current Alcohol intake frequency: a few times a week Alcohol type: beer Patient Tobacco Use Status: Never used Tobacco e-Cigarette/Vaping Use: Never Used Second Hand Smoke Exposure: No Substance Use Type: Marijuana Advance Directives Date on File: 01/25/21 service: No Current occupational status: retired Cognitive needs: No Hearing needs: No Vision needs: No Office Procedures Cardiac Device Check Cardiac Device Check Details: remote ICD report generated 05/07/2023. ICD function is adequate [id number] Cardiac Interrogation, implant defibrillator w/interim Procedure code (CPT) selection complete Coding Level of Care Code Procedure Only CPT Codes Cardiac Device Check - Cardiac Device 13: [id number] Cardiac Interrogation, implant defibrillator w/interim ([id number])
== END ==
PROVIDERS: PCP Nurse Practitioner Family; Visit Provider Internal Medicine Cardiovascular Disease
DX: I42.8 Other cardiomyopathies (principal)
CPT/HCPCS: 93295

== ENCOUNTER 2023-05-08 17:40 | Emergency (ER) | payer OTHER, SELFPAY ==
--- NOTE | ~2023-05-08 | XR_ITS ---
EXAMINATION: XR CHEST CLINICAL INFORMATION: Chest pain COMPARISON: 09/26/2022 TECHNIQUE: 2 views of the chest were obtained. FINDINGS: Since the prior study, a left chest wall single lead pacer/defibrillator is present. No other significant abnormality is noted involving the heart, lungs, mediastinum, bony thorax or soft tissues. XR/XR chest 2V IMPRESSION: No acute intrathoracic disease. New pacemaker placed since prior study.
[2023-05-08 17:45] VITALS: BP 150/76; PULSE 67; RESP 20; TEMP 36.7; O2SAT 99; BMI 37.5
--- NOTE | 2023-05-08 17:46 | ECG_ITS ---
Test Reason : palpitations Blood Pressure : / mmHG Vent. Rate : 064 BPM Atrial Rate : 064 BPM P-R Int : 162 ms QRS Dur : 076 ms QT Int : 400 ms P-R-T Axes : 046 -06 027 degrees QTc Int : 412 ms Normal sinus rhythm Normal ECG When compared with ECG of 26-SEP-2022 03:07, Premature ventricular complexes are no longer Present Referred By: Jeanie Wilkes Electronically Signed By:FIORELLA DIXON MD
--- NOTE | 2023-05-08 17:46 | ED.GENADULT ---
HPI - General Adult General Chief complaint: Arrhythmia/Palpitations Stated complaint: feels like heart racing has pacemaker Source: patient Mode of arrival: ambulatory Limitations: no limitations History of Present Illness HPI narrative: Patient is a 57 year old assigned male at with a history of HTN, NICM, atrial fibrillation, and an ICD, presenting to the emergency department today with palpitations. Patient states that his heart feels like it is racing and he is concerned because he had a pacemaker placed in February of 2023. Patient denies any dizziness, lightheadedness, abdominal pain, nausea, vomiting, fever, chills, blurry vision, double vision, loss of vision, chest pain, difficulty breathing, shortness of breath, back pain, night sweats, pain with urination, increased urinary frequency, increased urinary urgency, blood in his urine or stool, syncope or a near syncopal episode, recent trauma or falls, bowel incontinence, bladder incontinence, bowel retention, bladder retention, or any other complaints at this time. Onset (ago): hour(s) Relieving factors: none Exacerbating factors: none Associated symptoms: denies other symptoms Treatments prior to arrival: none Related Data Home Medications Medication Instructions Recorded Confirmed amiodarone 200 mg tablet 200 mg PO DAILY 04/10/23 05/12/23 lisinopril 20 mg tablet 20 mg PO DAILY 04/10/23 05/12/23 Previous Rx's Medication Instructions Recorded apixaban 5 mg tablet (Eliquis) 5 mg PO BID 90 days #180 tabs 01/31/22 metoprolol succinate 200 mg 200 mg PO DAILY #90 tabs 03/28/23 tablet,extended release 24 hr blood pressure monitor (Blood #1 ea 04/25/23 Pressure Kit) Allergies Allergy/AdvReac Type Severity Reaction Status Date / Time No Known Allergies Allergy Verified 05/12/23 09:32 Review of Systems Constitutional: Constitutional: Reports no additional constitutional complaints, Denies chills, Denies fever(s) and Denies night sweats Eyes: Eyes: Reports no additional eye complaints, Denies blurry vision, Denies change in vision, Denies diplopia, Denies eye discharge, Denies loss of vision and Denies eye pain ENT: Denies dizziness Cardiovascular: Cardiovascular: Reports no additional cardiovascular complaints, Denies chest pain, Denies lightheadedness, Denies Loss of Consciousness, Reports palpitations and Denies dyspnea Respiratory: Respiratory: Reports no additional respiratory complaints and Denies dyspnea Gastrointestinal: Gastrointestinal: Reports no additional gastrointestinal complaints, Denies abdominal pain, Denies melena, Denies hematochezia, Denies change in bowel habits and Denies change in stool character Genitourinary: Genitourinary: Reports no additional male genitourinary complaints, Denies hematuria, Denies oliguria, Denies difficulty urinating, Denies dysuria, Denies urinary frequency, Denies urinary hesitancy, Denies urinary incontinence and Denies urinary urgency Musculoskeletal: Musculoskeletal: Reports no additional musculoskeletal complaints, Denies numbness and Denies tingling Neurologic: Denies dizziness, Denies loss of vision, Denies numbness and Denies tingling Psychiatric: Psychiatric: Reports no additional psychiatric complaints Endocrine: Endocrine: Reports no additional endocrine complaints and Reports palpitations Hematologic/Lymphatic: Hematologic/Lymphatic: Reports no additional hematologic/lymphatic complaints Allergic/Immunologic: Allergic/Immunologic: Reports no additional allergic/immunologic complaints [facility] Past Medical History Attestation statement: The following information was validated with the patient. Source: old records reviewed and nursing notes reviewed Medical History History of cardioversion FARHEEN on CPAP Alcohol abuse HTN (hypertension) (HFpEF) heart failure with preserved ejection fraction Atrial fibrillation Surgical History Status post ORIF of fracture of ankle S/P hip replacement Family History Family History Mother HTN (hypertension) Diabetes mellitus Father Diabetes mellitus HTN (hypertension) Social History Social History Household Members: Family Household Members Other:: Girlfriend and daughter Housing: Apartment Are you a primary home care provider to a significant other at home: No Do you presently have visiting nurse or other home services: No Alcohol intake: current Alcohol intake frequency: a few times a week Alcohol type: beer Patient Tobacco Use Status: Never used Tobacco e-Cigarette/Vaping Use: Never Used Second Hand Smoke Exposure: No Substance Use Type: Marijuana Advance Directives Date on File: 01/25/21 service: No Current occupational status: retired Cognitive needs: No Hearing needs: No Vision needs: No Physical Exam ED Vital Signs: BMI result Body Mass Index 37.5 Const General: cooperative, no acute distress, alert and awake Nutritional Appearance: well nourished Orientation/consciousness: patient oriented x3 Limitations: no limitations HENMT Head: Yes normal to inspection and Yes atraumatic Ears: hearing grossly normal bilaterally and external ears normal General nose exam: Normal external nose present, no nasal discharge noted and no epistaxis Face and sinus: Yes normal facial exam, No abrasion and No laceration Mouth: Normal oral and palatal mucosa present, no drooling and no muffled voice Eyes General: appearance normal, both eyes and all related structures Periorbital: periorbital findings normal Eyelids: Yes eyelids normal Conjunctivae: conjunctivae normal Pupils: Equal, round and reactive pupils present EOM: EOMs intact bilaterally Neck Neck: Yes normal visual inspection, Yes full ROM and Yes no lymphadenopathy Chest Chest palpation & inspection: normal inspection of the chest Resp Effort & Inspection: normal respiratory effort and able to speak in complete sentences Auscultation: clear to auscultation bilaterally Cardio Rate: regular rate Rhythm: regular rhythm GI Inspection: Yes normal to inspection Neuro General: patient oriented x3 and moves all extremities Cranial nerves: Yes Equal, round and reactive pupils present Cognition (Neuro): normal cognition Motor exam (neuro): 5/5 motor strength present throughout Sensory Exam: Normal double simultaneous stimulation for sensation Coordination: [id number] test normal Extrem General: Yes normal to inspection, Yes full ROM and Yes capillary refill normal Psych Appearance: grossly normal Mental Status: mental status grossly normal Affect: normal affect Attitude: cooperative Thought process: Normal thought process present Thought content: Normal thought content present Insight: Good insight present (Psych) Course Course Course Narrative: RME performed by Jeanie Wilkes PA-C. Patient is a 57 year old assigned male at presenting to the emergency department with feeling like his heart is racing. Patient states that he got a pacemaker placed in February. Labs, imaging, and swabs ordered. Patient placed back in the waiting room pending room availability and results. Medical Decision Making Medical Decision Making MDM Narrative: Patient is a 57 year old assigned male at with a history of NCIM, ICD placement, atrial fibrillation, and HTN presenting to the emergency department today with palpitations. Patient's physical exam was unremarkable. Patient's blood work showed a hgb of 10.7 which is lower than his 10/06 level of 14 and an initial troponin of 6.0. The rest of the patient's labs were unremarkable. Patient's EKG was unremarkable. Patient's chest x-ray showed no acute process. Patient left the department without completing treatment. Patient left the department before myself or any of the other emergency department clinicians could explain physical exam findings, test results, need or lack thereof for further testing, or treatment plan. Differential Diagnosis Differential Diagnoses: The differential diagnosis associated with the presentation includes NSTEMI STEMI Palpitations Anxiety Admission/Observation Consideration of admission/observation: Escalation of care including admission/observation considered Patient would have been admitted to the hospital had his work up had any findings where hospital admission was appropriate, his clinical presentation warranted hospital admission, and he hadn't left the department. Lab Data [facility] Lab Attestation statement: I reviewed the patient's lab results. My interpretation of these results are in the [facility] Rationale portion of this note. 05/08/23 18:01 05/08/23 18:01 Labs: Lab Results 05/08/23 Range/Units 18:01 WBC 5.7 (4.8-10.8) X10*3/uL RBC 3.46 L D (4.60-5.80) X10*6/uL Hgb 10.7 L D (14.0-18.0) g/dl Hct 33.1 L D (42.0-52.0) % MCV 95.7 (80.0-98.0) fL MCH 30.9 (27.0-33.0) pg MCHC 32.3 (31.0-36.0) g/dl RDW 14.5 (11.0-16.0) % Plt Count 228 (160-400) X10*3/uL MPV 10.4 (9.4-12.4) fL Immature Gran % (Auto) 0.2 (0.0-0.4) % Neut % (Auto) 59.7 (45-73) % Lymph % (Auto) 26.8 (20-40) % Donley % (Auto) 8.4 (2-11) % Eos % (Auto) 3.7 (0-4) % Baso % (Auto) 1.2 (0-2) % Lymph # (Auto) 1.5 (1.2-4.9) X10*3/uL Donley # (Auto) 0.5 (0.1-1.2) X10*3/uL Eos # (Auto) 0.2 (0.0-0.4) X10*3/uL Baso # (Auto) 0.1 (0.0-0.2) X10*3/uL Abs Immat Gran (auto) 0.01 (0.00-0.03) X10*3/uL Absolute Neuts (auto) 3.4 (2.0-8.3) x10*3/uL Absolute Nucleated RBC 0.000 (0.0-0.012) X10*3/uL Nucleated RBC % (auto) 0.0 (0.0-0.2) /100WBC PT 13.3 (11.1-13.3) SEC INR 1.1 (0.9-1.1) APTT 30.3 (26.0-36.4) SEC Sodium 144 (135-145) mmol/L Potassium 4.3 (3.3-5.1) mmol/L Chloride 111 H (96-108) mmol/L Carbon Dioxide 25 (22-29) mmol/L Anion Gap 12 (12-20) BUN 15 (9-16) mg/dL Creatinine 1.23 (0.5-1.4) mg/dL Estim Creat Clear Calc 100.9 Estimated GFR > 60 Random Glucose 139 H (60-115) mg/dL Calcium 9.5 D (8.4-10.2) mg/dL Magnesium 1.8 (1.6-2.6) mg/dL Total Bilirubin 0.4 (0.0-1.0) mg/dL AST 32 (5-37) U/L ALT 18 (0-40) U/L Alkaline Phosphatase 92 (39-117) U/L Troponin I High Sens 6.0 (<3.5-35.0) ng/L Total Protein 7.1 (6.5-8.0) g/dL Albumin 3.9 (3.5-5.0) g/dL Influenza Type A (PCR) NEGATIVE (Negative) Influenza Type B (PCR) NEGATIVE (Negative) RSV RNA Qual (PCR) NEGATIVE (Negative) SARS-CoV-2 RNA (RT-PCR) NEGATIVE (Negative) Independent Interpretation I performed an independent interpretation of an: EKG and Plain X-Ray Interpretation: My interpretation is in agreement with the radiologist's impression of this imaging study. EXAMINATION: XR CHEST CLINICAL INFORMATION: Chest pain COMPARISON: 09/26/2022 TECHNIQUE: 2 views of the chest were obtained. FINDINGS: Since the prior study, a left chest wall single lead pacer/defibrillator is present. No other significant abnormality is noted involving the heart, lungs, mediastinum, bony thorax or soft tissues. XR/XR chest 2V IMPRESSION: No acute intrathoracic disease. New pacemaker placed since prior study. Dictated By: Víctor Campos MD Signed By: Electronically signed by Víctor Campos MD 05/08/23 184 Vent. Rate: 064 BPM Atrial Rate: 064 BPM P-R Int: 162 ms QRS Dur: 076 ms QT Int: 400 ms P-R-T Axes: 046 -06 027 degrees QTc Int: 412 ms Normal sinus rhythm Normal ECG When compared with ECG of 26-SEP-2022 03:07, Premature ventricular complexes are no longer Present Electronically Signed By:FIORELLA DIXON MD Dictated By: Victorino Dixon MD Signed By: Electronically signed by Victorino Dixon MD 05/09/23 1250 Radiology Impression Discussion of test interpretation with radiology: I have reviewed the radiologist's reading. Discharge Plan Discharge Clinical Impression: Palpitations Patient Disposition: Left W/O Completing Treatment Prescriptions: No Action Eliquis 5 mg tablet 5 mg PO BID 90 Days Qty: 180 3RF metoprolol succinate 200 mg tablet extended release 24 hr 200 mg PO DAILY Qty: 90 3RF amiodarone 200 mg tablet 200 mg PO DAILY lisinopril 20 mg tablet 20 mg PO DAILY (DME) blood pressure monitor [Blood Pressure Kit] Kit See Rx Instructions .Route Qty: 1 0RF Rx Instructions: As directed Discharge Date/Time: 05/09/23 00:50
[2023-05-08 18:08] LABS: MANUAL DIFF FLAG NO
[2023-05-08 18:11] LABS: Basophils Absolute Auto 0.1 X10*3/uL (0.0-0.2); Basophils Percent Auto 1.2 % (0-2); Eosinophils Absolute Auto 0.2 X10*3/uL (0.0-0.4); Eosinophils Percent Auto 3.7 % (0-4); Hematocrit 33.1 % (42.0-52.0); Hemoglobin 10.7 g/dl (14.0-18.0); Imm Gran Abs Auto 0.01 X10*3/uL (0.00-0.03); Imm Gran Pct Auto 0.2 % (0.0-0.4); Lymphocytes Absolute Auto 1.5 X10*3/uL (1.2-4.9); Lymphocytes Percent Auto 26.8 % (20-40); Mean Corpuscular HGB Conc 32.3 g/dl (31.0-36.0); Mean Corpuscular Hemoglobin 30.9 pg (27.0-33.0); Mean Corpuscular Volume 95.7 fL (80.0-98.0); Mean Platelet Volume 10.4 fL (9.4-12.4); Monocytes Absolute Auto 0.5 X10*3/uL (0.1-1.2); Monocytes Percent Auto 8.4 % (2-11); Neutrophils Absolute Auto 3.4 x10*3/uL (2.0-8.3); Neutrophils Percent Auto 59.7 % (45-73); Platelet Count 228 X10*3/uL (160-400); Red Blood Count 3.46 X10*6/uL (4.60-5.80); Red Cell Distribution Width 14.5 % (11.0-16.0); White Blood Count 5.7 X10*3/uL (4.8-10.8)
[2023-05-08 18:18] LABS: INTERNATIONAL NORM RATIO 1.1 (0.9-1.1); Prothrombin Time 13.3 SEC (11.1-13.3)
[2023-05-08 18:21] LABS: Partial Thromboplastin Time 30.3 SEC (26.0-36.4)
[2023-05-08 18:32] LABS: Alanine Aminotransferase 18 U/L (0-40); Albumin Level 3.9 g/dL (3.5-5.0); Alkaline Phosphatase 92 U/L (39-117); Anion Gap 12 (12-20); Aspartate Amino Transferase 32 U/L (5-37); Bilirubin Total 0.4 mg/dL (0.0-1.0); Blood Urea Nitrogen 15 mg/dL (9-16); Calcium 9.5 mg/dL (8.4-10.2); Carbon Dioxide 25 mmol/L (22-29); Chloride 111 mmol/L (96-108); Creatinine Clr Calc Pharmacy 100.9; Estimated Glomerular Filt Rate > 60; Glucose Random 139 mg/dL (60-115); Magnesium 1.8 mg/dL (1.6-2.6); Potassium 4.3 mmol/L (3.3-5.1); Sodium 144 mmol/L (135-145); Total Protein 7.1 g/dL (6.5-8.0)
[2023-05-08 18:51] LABS: Influenza A PCR NEGATIVE (Negative); Influenza B PCR NEGATIVE (Negative); Resp Syncy Virus RNA Qual PCR NEGATIVE (Negative); SARS COV2 PCR INHOUSE NEGATIVE (Negative)
== END 2023-05-09 00:50 | disposition left against medical advice (07) ==
PROVIDERS: Physician Assistant Medical; Emergency Provider Emergency Medicine
DX: I49.9 Cardiac arrhythmia, unspecified (principal); R00.2 Palpitations; R07.89 Other chest pain; Z20.822 Contact with and (suspected) exposure to COVID-19; Z20.828 Contact with and (suspected) exposure to other viral communicable diseases; Z79.899 Other long term (current) drug therapy
CPT/HCPCS: 0241U; 36415; 71046; 80053; 83735; 84484; 85025; 85610; 85730; 93005; 99283

== ENCOUNTER 2023-05-12 09:04 | Outpatient (AMB) | payer OTHER, SELFPAY ==
--- NOTE | 2023-05-12 09:08 | A.OFFPC_ITS ---
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 Transferring care from [facility]. Medical records have not been requested and have not received. Business Systems Administrator Required: No E Commerce Web Developer: Not Required per policy Accompanied by: Self / Same As Patient Allergies No Known Allergies Allergy (Verified 05/12/23 09:32) Medication List - Last Reconciled 05/12/23 by YESY Martinez amiodarone 200 mg PO DAILY apixaban (Eliquis) 5 mg PO BID 90 days blood pressure monitor (Blood Pressure Kit) As directed lisinopril 20 mg PO DAILY metoprolol succinate ER 200 mg PO DAILY Tobacco use date assessed: 05/12/23 Dental Screening Dental Screen Date: 05/12/23 Did you have a dental visit in the last 12 months?: Yes Did you have a dental problem in the last 6 months where you did not have access to dental care?: No Was dental information given to patient?: Patient has dentist HPI HPI Comments History of Present Illness Details 57-year-old male past medical history si gnificant for idiopathic hypotension, ventricular tachycardia, CHF, paroxysmal atrial fib, cardiomyopathy and obstructive sleep apnea patient currently uses CPAP for greater than 4 hours a night with good effect. Patient currently following with paper testing supervisor Dr. Chaudhary. Review of the notes last seen in the beginning of April, over the summer was reported that patient was in [place] camping with his family and he had a presyncopal episode and was rushed to the emergency room and was found to be in AFib with RVR and underwent an emergent cardioversion. Patient denies any chest pain, palpitations, shortness of breath or syncope. Denies the need for any refills on his medications patient reports that his medications are sent by his paper testing supervisor. [facility] pcp [facility] Medical History (Updated 05/12/23 @ 09:31 by YESY Martinez) History of cardioversion FARHEEN on CPAP Alcohol abuse HTN (hypertension) (HFpEF) heart failure with preserved ejection fraction Atrial fibrillation Surgical History Status post ORIF of fracture of ankle S/P hip replacement Family History Mother HTN (hypertension) Diabetes mellitus Father Diabetes mellitus HTN (hypertension) Social History (Updated 05/12/23 @ 09:31 by YESY Martinez) Household Members: Family Household Members Other:: Girlfriend and daughter Housing: Apartment Are you a primary primary care nurse to a significant other at home: No Do you presently have visiting nurse or other home services: No Alcohol intake: current Alcohol intake frequency: a few times a week Alcohol type: beer Patient Tobacco Use Status: Never used Tobacco e-Cigarette/Vaping Use: Never Used Second Hand Smoke Exposure: No Substance Use Type: Marijuana Advance Directives Date on File: 01/25/21 service: No Current occupational status: retired Cognitive needs: No Hearing needs: No Vision needs: No Questionnaire PHQ-9 Over the last 2 weeks, how often have you been bothered by any of the following problems? 1. Little interest or pleasure in doing things: not at all 2. Feeling down, depressed, or hopeless: not at all 3. Trouble falling or staying asleep, or sleeping too much: not at all 4. Feeling tired or having little energy: not at all 5. Poor appetite or overeating: not at all 6. Feeling bad about yourself - or that you are a failure or have let yourself or your family down: not at all 7. Trouble concentrating on things, such as reading the newspaper or watching television: not at all 8. Moving or speaking so slowly that other people could have noticed. Or the opposite - being so fidgety or restless that you have been moving around a lot more than usual: not at all 9. Thoughts that you would be better off or of hurting yourself in some wa y: not at all Total score: 0 Depression Screening Interpretation: Negative Depression Screening Done: Yes 33857 - PHQ-9 Billing: Yes Source: Developed by Drs. Ace Beckwith, Evelyne Ramirez, Carlos Garcia and colleagues, with an educational yaz from [employer]. Thrive Questionnaire Date Thrive assessed: 05/12/23 I am a: Patient What is your living situation today?: I have a steady place to live Within the past 12 months, did the food you bought not last and you didn't have the money to get more?: Never true Within the past 12 months, did you worry whether your food would run out before you got money to buy more?: Never true Do you have trouble paying for medicines?: No Do you have trouble getting transportation to medical appointments?: No Do you have trouble paying your heating and electricity bill?: No Do you have trouble taking care of your child, family member or friend?: No Do you have trouble with day-to-day activities such as bathing, preparing meals, shopping, managing finances, etc.?: No Are you currently unemployed and looking for a job?: No Are you interested in more education?: No Currently or been in a relationship where the following occur: no concerns reported AUDIT C Alcohol Use Questionnaire (AUDIT-C) 1. How often do you have a drink containing alcohol?: 2-3 times a week Total Score: 3 DIEUDONNE-7 AMB Questionnaire DIEUDONNE-7 Date DIEUDONNE - 7 assessed: 05/12/23 Feeling nervous, anxious, or on edge: 0 = Not at all Not being able to stop or control worryin = Not at all Worrying too much about different things: 0 = Not at all Trouble relaxin = Not at all Being so restless that it is hard to sit still: 0 = Not at all Becoming easily annoyed or irritable: 0 = Not at all Feeling afraid as if something awful might happen: 0 = Not at all Total DIEUDONNE-7 score (0-4 normal; 5-9 mild; 10-14 moderate; 15-21 severe): 0 Source: Developed by Drs. Ace Beckwith, Evelyne Ramirez, Carlos Garcia and colleagues, with an educational yaz from [employer]. DIEUDONNE-7 Assessment Billing DIEUDONNE-7 Assessment Tool: DIEUDONNE-7 Assessment 89620 Review of Systems Const Denies chills, Denies fatigue, Denies fever(s) and Denies poor appetite Eyes Denies no additional complaints ENT Reports Normal hearing present Card Denies chest pain, Denies syncope, Denies rapid heart rate and Denies dyspnea Resp Denies cough and Denies dyspnea GI Denies change in stool character, Denies constipation, Denies diarrhea, Denies nausea and Denies vomiting Denies dysuria, Denies urinary frequency and Denies urinary urgency Neuro Reports Normal hearing present, Denies confusion and Denies syncope Psych Denies confusion Endo Denies fatigue Physical exam (Primary Care) Vital Signs: Last Vital Signs Pulse 71 05/12/23 09:10 BP 134/80 05/12/23 09:10 Pulse Ox 97 05/12/23 09:10 Oxygen Delivery Method Room Air 05/12/23 09:10 BMI result Body Mass Index 37.1 Tobacco/Smoking Status: Tobacco use Status Tobacco use date assessed 05/12/23 05/12/23 09:13 Patient Tobacco Use Status Never used Tobacco 05/12/23 09:31 Tobacco use type 02/28/23 13:31 e-Cigarette/Vaping Use Never Used 05/12/23 09:31 PHQ-9: PHQ-9 Score PHQ-9: Total score 0 05/12/23 09:33 Depression Screening Interpretation: Negative Thrive Assessment: Date of Thrive Assessment Date Thrive assessed 05/12/23 05/12/23 09:13 Currently or been in a relationship where the following occur: no concerns reported Const General: No confusion Orientation/consciousness: No confusion HENMT Head: Yes normocephalic and Yes atraumatic Eyes Conjunctivae: conjunctivae normal Chest Chest palpation & inspection: normal inspection of the chest Resp Effort & Inspection: normal respiratory effort Auscultation: clear to auscultation bilaterally, no crackles, no rhonchi and no wheezes Cardio Rate: regular rate Rhythm: regular rhythm Heart sounds: S1 normal heart sound present and S2 normal heart sound present GI Inspection: Yes normal to inspection Neuro General: No confusion Cranial nerves: Yes Normal hearing present Extrem General: No edema Assessment and Plan Assessment & Plan (1) FARHEEN on CPAP: Comment: on CPAP > 5 hrs at night Code(s): G47.33 - Obstructive sleep apnea (adult) (pediatric); Z99.89 - Dependence on other enabling machines and devices Plan: Continue CPAP for greater > 5 hrs a night with good effect. (2) HTN (hypertension): Code(s): I10 - Essential (primary) hypertension Plan: Continue on lisinopril 20 mg daily. Follow low-salt diet and exercise. (3) (HFpEF) heart failure with preserved ejection fraction: Code(s): I50.30 - Unspecified diastolic (congestive) heart failure Plan: Continue to follow with Cardiology. (4) Atrial fibrillation: Code(s): I48.91 - Unspecified atrial fibrillation Plan: Continue on amiodarone and metoprolol for rate control Continue on Eliquis 5 mg b.i.d. for anticoagulation. Plan Follow-up in 3 months. Orders: Orders Lipid Panel Today Z13.220 - Encounter for screening for lipoid disorders TSH reflex Free T4 Today Z13.29 - Encounter for screening for other suspected endocrine disorder Complete Blood Count Auto Diff Today Z13.0 - Encounter for screening for diseases of the blood and blood-forming organs and certain disorders involving the immune mechanism Comprehensive [place]. Panel Fast Today Z13.1 - Encounter for screening for diabetes mellitus Coding Level of Care Code New Pt Level 4 (83271) Diagnoses FARHEEN on CPAP G47.33; Z99.89 HTN (hypertension) I10 (HFpEF) heart failure with preserved ejection fraction I50.30 Atrial fibrillation I48.91 Additional Codes DIEUDONNE-7 Assessment Billing - DIEUDONNE-7 Assessment Tool: DIEUDONNE-7 Assessment [id number] ([id number])
[2023-05-12 09:10] VITALS: BP 134/80; PULSE 71; O2SAT 97; BMI 37.1
== END 2023-05-12 09:45 | disposition home or self-care (01) ==
PROVIDERS: PCP Nurse Practitioner Family; Visit Provider Nurse Practitioner Family
DX: I11.0 Hypertensive heart disease with heart failure (principal); I50.30 Unspecified diastolic (congestive) heart failure; I48.91 Unspecified atrial fibrillation; G47.33 Obstructive sleep apnea (adult) (pediatric)
CPT/HCPCS: 99204

== ENCOUNTER → 2023-05-24 08:09 | Outpatient (REF) | payer OTHER, SELFPAY ==
--- NOTE | 2023-05-24 08:13 | CA_ITS ---
Transthoracic Echocardiogram Patient (Last, First, Middle): Nitesh Osorio, Gender: Male Date of : 1965 Age: 57 Procedure Date: 05/24/2023 Procedure Type: Transthoracic Echocardiogram Location: OP Height: 190.5 cm Weight: 136.08 kg BSA: 2.61 m2 Heart Rate: bpm BP: 138 / 88 mmHg Smoke Jumper Supervisor: JEANNE Referring MD: Fabricio Chaudhary MD Clay Dry Press Helper: Joe Montemayor MD Symptoms: I42.8 - Other cardiomyopathies Study Quality: Adequate with contrast ECG Rhythm: Sinus Conclusions: - 1. Normal LV ejection fraction of 65-70% with mild LVH with grade 2 diastolic dysfunction 2. Moderately dilated left atrium 3. Calcific aortic and mitral valve changes with normal cardiac valvular Dopplers next 4. Moderately elevated right ventricular systolic pressure 5. Mildly dilated ascending aorta 4.3 cm 6. No gross pericardial effusion Findings Procedure Information Contrast agent, definity, is being given per protocol without apparent complications. Left Ventricle Normal left ventricular cavity size. There is mildly increased left ventricular wall thickness. The left ventricular systolic function is normal. The visually estimated ejection fraction is between 65-70%. Spectral Doppler is indicative of a pseudonormal filling pattern. E/E prime ratio is >15, consistent with elevated filling pressures. Evidence suggests grade II (moderate) diastolic dysfunction. Wall Motion Rest Echo Findings The apex segment is hypokinetic. All other scored wall segments showed normal motion. Right Ventricle Normal right ventricular cavity size and systolic function. Atria The left atrium is moderately dilated. Interatrial shunt cannot be excluded. The right atrium is likely dilated. Aortic Valve There is mild calcification of the aortic valve. There is no aortic valve stenosis. There is no aortic valve regurgitation. Mitral Valve The mitral valve was not well visualized. There is mild anterior mitral leaflet thickening. There is trace mitral valve regurgitation. There is no mitral valve stenosis. Pulmonic Valve The pulmonic valve was not well visualized. Tricuspid Valve Likely normal tricuspid valve structure and function. There is mild tricuspid valve regurgitation. Normal right atrial pressure. Moderate pulmonary hypertension is present. Great Vessels The pulmonary artery was not well visualized. There is mild dilatation of the ascending aorta measuring 4.30 cm. Moderate plaque is seen in the sino tubular ridge. Venous The inferior vena cava is normal in size and collapses greater than 50% with inspiration. Pericardium/Pleural There is no evidence of pericardial effusion. Measurements 2D Linear Measurements IVSd: 1.30 0.6-0.9/0.6-1.0 cm LVIDd: 4.67 3.9-5.3/4.2-5.9 cm LVIDd Index: 1.79 2.4-3.2/2.2-3.1 cm/m2 LVIDs: 2.77 2.0-3.6 cm LVPWd: 1.16 0.7-1.1 cm LA Diam: 4.40 2.7-3.8/3.0-4.0 cm LAIDs Index: 1.69 1.5-2.3 cm/m2 LV Mass: 271.04 67-162/88-224 g LV Mass Index: 103.85 43-95/49-115 g/m2 LVOT Diam: 2.10 3.0+(-)1.3 cm 2D Systolic Function EF 4C: 68.40 >55% EF 2C: 66.00 >55% EF BiP: 67.80 >55% Mitral Valve MV Pk E: 1.43 MV PK A: 1.00 MV Decel Time: 159.00 E/A: 1.40 E'Lateral: 7.83 E'Medial: 6.64 E/E' Med: 21.50 E/E' Lat: 18.30 PHT: 47.00 MVA PHT: 4.68 Decel Quay: 9.01 Aortic Valve AoV Pk Jl: 1.85 AoV Mn Jl: 1.27 AoV VTI: 0.43 AoV Pk Grad: 14.00 Aov Mn Grad: 7.00 LOURDES Cont.VTI: 2.53 LVOT LVOT Pk Jl: 1.47 LVOT Mn Jl: 0.89 LVOT VTI: 0.32 LVOT Pk Grad: 9.00 LVOT Mn Grad: 4.00 LVOT Diam: 2.10 LVOT Area: 3.46 Diastolic Function MV Pk E: 1.43 MV Pk A: 1.00 E/A: 1.40 E'Medial: 6.64 E/E' Med: 21.50 E' Laterial: 7.83 E/E' Lat: 18.30 Right Ventricle TAPSE (mm): 30.00 TVS' Jl: 15.70 Tricuspid Valve TR Pk Jl: 3.39 TR Pk Grad: 46.00 RA Press: 3.00 RVSP: 49.00 Great Vessels Aorta Sinus of Valsalva: 4.52 2.0-3.[address] Ridge: 3.05 1.7-3.4 cm Ao Asc: 4.30 2.1-3.4 cm Updated in Other Vendor System with Status of Final Joe Montemayor MD electronically signed on 05/25/2023 4:49:48 PM with status of Final
== END ==
LOC: HO.CARD 08:09
PROVIDERS: Visit Provider Internal Medicine
DX: I42.8 Other cardiomyopathies (principal); I47.20 Ventricular tachycardia, unspecified
CPT/HCPCS: 93306; Q9957

== ENCOUNTER → 2023-05-24 08:13 | Outpatient (BNV) | payer OTHER, SELFPAY | PROVIDERS: Visit Provider Internal Medicine Cardiovascular Disease | DX: I42.8 Other cardiomyopathies (principal); I36.1 Nonrheumatic tricuspid (valve) insufficiency | CPT/HCPCS: 93306 ==

== ENCOUNTER 2023-07-24 10:49 | Outpatient (REF) | payer OTHER, SELFPAY ==
[2023-07-24 10:56] LABS: MANUAL DIFF FLAG NO
[2023-07-24 11:11] LABS: Basophils Absolute Auto 0.1 X10*3/uL (0.0-0.2); Basophils Percent Auto 0.6 % (0-2); Eosinophils Absolute Auto 0.4 X10*3/uL (0.0-0.4); Eosinophils Percent Auto 3.6 % (0-4); Hematocrit 40.5 % (42.0-52.0); Hemoglobin 13.3 g/dl (14.0-18.0); Imm Gran Abs Auto 0.05 X10*3/uL (0.00-0.03); Imm Gran Pct Auto 0.5 % (0.0-0.4); Lymphocytes Absolute Auto 1.6 X10*3/uL (1.2-4.9); Lymphocytes Percent Auto 14.9 % (20-40); Mean Corpuscular HGB Conc 32.8 g/dl (31.0-36.0); Mean Corpuscular Hemoglobin 30.7 pg (27.0-33.0); Mean Corpuscular Volume 93.5 fL (80.0-98.0); Mean Platelet Volume 10.8 fL (9.4-12.4); Monocytes Absolute Auto 0.8 X10*3/uL (0.1-1.2); Monocytes Percent Auto 7.5 % (2-11); Neutrophils Absolute Auto 7.9 x10*3/uL (2.0-8.3); Neutrophils Percent Auto 72.9 % (45-73); Platelet Count 296 X10*3/uL (160-400); Red Blood Count 4.33 X10*6/uL (4.60-5.80); Red Cell Distribution Width 11.7 % (11.0-16.0); White Blood Count 10.9 X10*3/uL (4.8-10.8)
[2023-07-24 12:20] LABS: Alanine Aminotransferase 18 U/L (0-40); Albumin Level 3.9 g/dL (3.5-5.0); Alkaline Phosphatase 73 U/L (39-117); Anion Gap 14 (12-20); Aspartate Amino Transferase 27 U/L (5-37); Blood Urea Nitrogen 10 mg/dL (9-16); Calcium 9.6 mg/dL (8.4-10.2); Carbon Dioxide 28 mmol/L (22-29); Chloride 100 mmol/L (96-108); Cholesterol 180 mg/dL (<200); Estimated Glomerular Filt Rate > 60; Glucose Fasting 104 mg/dL (60-99); HDL Cholesterol 37 mg/dL (>40); LDL Cholesterol Calculated 124 mg/dL (<100); Potassium 4.3 mmol/L (3.3-5.1); Sodium 138 mmol/L (135-145); TSH reflex Free T4 1.59 uIU/mL (0.32-4.0); Total Protein 7.6 g/dL (6.5-8.0); Triglycerides 96 mg/dL (<150)
== END 2023-07-24 10:50 | disposition home or self-care (01) ==
LOC: HO.LAB 10:49
PROVIDERS: PCP Nurse Practitioner Family; Visit Provider Nurse Practitioner Family
DX: Z00.00 Encounter for general adult medical examination without abnormal findings (principal); Z13.220 Encounter for screening for lipoid disorders; Z13.29 Encounter for screening for other suspected endocrine disorder; Z13.0 Encounter for screening for diseases of the blood and blood-forming organs and certain disorders involving the immune mechanism; Z13.1 Encounter for screening for diabetes mellitus
CPT/HCPCS: 36415; 80053; 80061; 84443; 85025

== ENCOUNTER → 2023-08-07 23:59 | Outpatient (BNV) | payer OTHER, SELFPAY ==
--- NOTE | 2023-08-08 12:15 | A.OFFVIS_ITS ---
Intake Intake Visit Reasons: Remote ICD Check- [employer] Allergies No Known Allergies Allergy (Verified 05/12/23 09:32) [facility] Medical History History of cardioversion FARHEEN on CPAP Alcohol abuse HTN (hypertension) (HFpEF) heart failure with preserved ejection fraction Atrial fibrillation Surgical History Status post ORIF of fracture of ankle S/P hip replacement Family History Mother HTN (hypertension) Diabetes mellitus Father Diabetes mellitus HTN (hypertension) Social History Household Members: Family Household Members Other:: Girlfriend and daughter Housing: Apartment Are you a primary health care coordinator to a significant other at home: No Do you presently have visiting nurse or other home services: No Alcohol intake: current Alcohol intake frequency: a few times a week Alcohol type: beer Patient Tobacco Use Status: Never used Tobacco e-Cigarette/Vaping Use: Never Used Second Hand Smoke Exposure: No Substance Use Type: Marijuana Advance Directives Date on File: 01/25/21 service: No Current occupational status: retired Cognitive needs: No Hearing needs: No Vision needs: No Office Procedures Cardiac Device Check Cardiac Device Check Details: Date of service 08/07/2023; Battery life >13 years; normal lead parameters; no treated VT/VF; ; normal ICD function. [id number] Cardiac Interrogation, implant defibrillator w/interim Procedure code (CPT) selection complete Assessment & Plan Assessment & Plan (1) Ventricular tachycardia: Code(s): I47.20 - Ventricular tachycardia, unspecified Plan x Coding Level of Care Code Procedure Only Diagnoses Ventricular tachycardia I47.20 CPT Codes Cardiac Device Check - Cardiac Device 13: [id number] Cardiac Interrogation, implant defibrillator w/interim ([id number])
== END ==
PROVIDERS: PCP Nurse Practitioner Family; Visit Provider Internal Medicine
DX: I42.8 Other cardiomyopathies (principal); Z95.810 Presence of automatic (implantable) cardiac defibrillator
CPT/HCPCS: 93295

== ENCOUNTER 2023-09-29 14:37 | Outpatient (REF) | payer OTHER, SELFPAY ==
[2023-09-29 15:43] LABS: Anion Gap 13 (12-20); Blood Urea Nitrogen 8 mg/dL (9-16); Calcium 9.6 mg/dL (8.4-10.2); Carbon Dioxide 26 mmol/L (22-29); Chloride 105 mmol/L (96-108); Estimated Glomerular Filt Rate > 60; Glucose Random 103 mg/dL (60-115); Potassium 4.4 mmol/L (3.3-5.1); Sodium 140 mmol/L (135-145)
== END 2023-09-29 14:38 | disposition home or self-care (01) ==
LOC: HO.LAB 14:37
PROVIDERS: Visit Provider Internal Medicine
DX: R06.02 Shortness of breath (principal); I47.20 Ventricular tachycardia, unspecified; I42.8 Other cardiomyopathies
CPT/HCPCS: 36415; 80048

== ENCOUNTER 2023-10-11 13:50 | Outpatient (AMB) | payer OTHER, SELFPAY ==
[2023-10-11 13:53] VITALS: BP 116/86; PULSE 72; BMI 36.2
--- NOTE | 2023-10-11 13:53 | MHC.OFFVIS ---
Intake Vital Signs 10/11/23 13:53 Height 6 ft 3 in Weight 289 lb 10.998 oz BMI 36.2 BP 116/86 Blood Pressure Location Lt brachial Position Sitting Pulse 72 Intake Visit Reasons: follow up echo/MRI Intake Note: follow up testing Occupational Therapy Manager Required: No Accompanied by: Self / Same As Patient Allergies No Known Allergies Allergy (Verified 10/11/23 13:54) Medication List - Last Reconciled 10/11/23 by Fabricio Chaudhary MD amiodarone 200 mg PO DAILY apixaban (Eliquis) 5 mg PO BID 90 days blood pressure monitor (Blood Pressure Kit) As directed lisinopril 20 mg PO DAILY metoprolol succinate ER 200 mg PO DAILY HPI HPI Comments History of Present Illness Details Nitesh returns for follow-up regarding atrial fibrillation and cardiomyopathy. Complicated history. History of atrial fibrillation with prior cardioversions. He was maintained on flecainide. In 2022, he was in [place] during camping for the summer time. At that time, it seems he was drinking a lot, has had several beers. Following that, presyncopal type symptoms leading to emergent medical care. Apparently, he was in atrial fibrillation rapid rate that degenerated into ventricular tachycardia type rhythm. That required emergent cardioversion. Eventually, admitted to local hospital where he underwent cardiac catheterization as well as ICD placement. Since that time, he is mostly doing well. Unfortunately, he still drinks. But compliant with meds. [facility] Medical History History of cardioversion FARHEEN on CPAP Alcohol abuse HTN (hypertension) (HFpEF) heart failure with preserved ejection fraction Atrial fibrillation Surgical History Status post ORIF of fracture of ankle S/P hip replacement Family History Mother HTN (hypertension) Diabetes mellitus Father Diabetes mellitus HTN (hypertension) Social History Household Members: Family Household Members Other:: Girlfriend and daughter Housing: Apartment Are you a primary healthcare receptionist to a significant other at home: No Do you presently have visiting nurse or other home services: No Alcohol intake: current Alcohol intake frequency: a few times a week Alcohol type: beer Patient Tobacco Use Status: Never used Tobacco e-Cigarette/Vaping Use: Never Used Second Hand Smoke Exposure: No Substance Use Type: Marijuana Advance Directives Date on File: 01/25/21 service: No Current occupational status: retired Cognitive needs: No Hearing needs: No Vision needs: No Review of Systems Const Denies weakness ENT Denies dizziness Card Denies chest pain, Denies chest pain with activity, Denies syncope, Denies rapid heart rate, Denies pedal edema, Denies edema, Denies leg edema, Denies lightheadedness, Denies palpitations, Denies dyspnea on exertion and Denies orthopnea Resp Denies cough and Denies dyspnea on exertion GI Denies hematochezia and Denies change in stool character Musc Denies abnormal gait, Denies muscle cramps, Denies muscle weakness, Denies numbness, Denies radiating pain into limb and Denies tingling Neuro Denies abnormal gait, Denies dizziness, Denies syncope, Denies numbness, Denies tingling and Denies weakness Endo Denies palpitations Physical Exam Vital Signs: Last Vital Signs Pulse 72 10/11/23 13:53 BP 116/86 10/11/23 13:53 BMI result Body Mass Index 36.2 Const General: comfortable and no acute distress Orientation/consciousness: patient oriented x3 HEENT Other: Unremarkable Head: Yes normal to inspection Neck Neck: Yes normal visual inspection Chest Chest palpation & inspection: normal inspection of the chest Resp Auscultation: clear to auscultation bilaterally Cardio Palpation: normal PMI Heart sounds: S1 normal heart sound present, S2 normal heart sound present, no gallops, no murmurs and no rubs GI Palpation (GI): Soft to palpation Back/Spine/Pelvis Other: unremarkable Skin General skin exam: no rashes or lesions noted Neuro General: patient oriented x3 Extrem General: Yes normal to inspection Psych Mental Status: mental status grossly normal Office Procedures EKG Details: EKG with sinus rhythm at 72/Min; no significant ST-T changes and otherwise unremarkable. [place]. [id number], Complete Assessment & Plan Assessment & Plan (1) PAF (paroxysmal atrial fibrillation): Code(s): I48.0 - Paroxysmal atrial fibrillation Plan: For the time being, he is on amiodarone. Previously on flecainide but stopped after the cardiac arrest episode. Also on a significant dose of beta-blockers. On Eliquis. Referred to EP for further evaluation. Consider atrial fibrillation ablation. After that, we can stop the amiodarone. (2) NICM (nonischemic cardiomyopathy): Code(s): I42.8 - Other cardiomyopathies Plan: In the past, suspected tachycardia induced cardiomyopathy. Then recovered EF. Per [place] records, apparently apical akinesis. LVEF was 64%. Cardiac catheterization 02/2023 with normal coronary arteries. Cardiac MRI with LVEF of 55%. No wall motion abnormalities. Subendocardial delayed enhancement in basal to mid anterolateral segments suggesting fibrosis from possible prior myocarditis. Other findings suggestive of diffuse myocardial fibrosis. Clinically, no congestive heart failure. (3) Ventricular tachycardia: Code(s): I47.20 - Ventricular tachycardia, unspecified Plan: Per [place] records, it seems he was in atrial fibrillation with very rapid rate and then started having QRS widening. Hence not clear if it is just atrial fibrillation or truly VT. Any case, he is back to normal sinus rhythm and has not had any rhythm issues with ICD monitoring. Continue Amiodarone for the foreseeable future. Duration to be decided. (4) Idiopathic hypotension: Code(s): I95.0 - Idiopathic hypotension Plan: The past, we stopped his nifedipine and hydrochlorothiazide. Blood pressure seems okay. (5) Alcohol abuse: Code(s): F10.10 - Alcohol abuse, uncomplicated Plan: Unfortunately, he is still drinking and we have discussed about this numerous times. (6) Morbid obesity: Code(s): E66.01 - Morbid (severe) obesity due to excess calories Plan: Eventually, needs to lose substantial amount of weight to minimize cardiac issues. (7) FARHEEN on CPAP: Code(s): G47.33 - Obstructive sleep apnea (adult) (pediatric); Z99.89 - Dependence on other enabling machines and devices Plan: Continue CPAP. Plan Total time spent including review of records from [place], counseling, documentation, review of medications, coordination of care-60 minutes. Coding Level of Care Code Est Pt Level 4 (53033) Diagnoses PAF (paroxysmal atrial fibrillation) I48.0 NICM (nonischemic cardiomyopathy) I42.8 Ventricular tachycardia I47.20 Idiopathic hypotension I95.0 Alcohol abuse F10.10 Morbid obesity E66.01 FARHEEN on CPAP G47.33; Z99.89 CPT Codes EKG - CPT: 77842-[id number], Complete ([id number])
== END 2023-10-11 14:34 | disposition home or self-care (01) ==
PROVIDERS: PCP Nurse Practitioner Family; Visit Provider Internal Medicine
DX: I48.0 Paroxysmal atrial fibrillation (principal); I42.8 Other cardiomyopathies; I47.20 Ventricular tachycardia, unspecified; I95.0 Idiopathic hypotension; F10.10 Alcohol abuse, uncomplicated; E66.01 Morbid (severe) obesity due to excess calories; G47.33 Obstructive sleep apnea (adult) (pediatric); Z99.89 Dependence on other enabling machines and devices
CPT/HCPCS: 93010; 99214

== ENCOUNTER → 2023-10-11 13:50 | Outpatient (BNVA) | payer OTHER, MEDICAID, SELFPAY | PROVIDERS: PCP Nurse Practitioner Family; Visit Provider Internal Medicine | DX: I48.0 Paroxysmal atrial fibrillation (principal); I42.8 Other cardiomyopathies; I47.20 Ventricular tachycardia, unspecified; I95.0 Idiopathic hypotension; E66.01 Morbid (severe) obesity due to excess calories; G47.33 Obstructive sleep apnea (adult) (pediatric); F10.10 Alcohol abuse, uncomplicated; Z99.89 Dependence on other enabling machines and devices | CPT/HCPCS: 93005; 99212 ==

== ENCOUNTER 2023-10-14 17:01 | Emergency (ER) | payer OTHER, MEDICAID, SELFPAY ==
--- NOTE | ~2023-10-14 | CT_ITS ---
EXAMINATION: CT ABDOMEN AND PELVIS WITH CONTRAST CLINICAL INFORMATION: Abdominal pain, nausea and vomiting. COMPARISON: None available. TECHNIQUE: Multidetector volumetric images were obtained from the superior aspect of the liver through the pubic symphysis following administration 85 mL of Omnipaque 350 intravenous contrast. Sagittal and coronal reformatted images were obtained on the technologist's workstation. Oral contrast: No This CT examination was performed using dose optimization techniques as appropriate, variously including the following: *Automated exposure control *Adjustment of mA and/or kV according to patient size (this includes techniques or standardized protocols for targeted exams where dose is matched to indication/reason for exam; i.e. extremities or head) *Use of iterative reconstruction technique DLP: 1082 mGy-cm FINDINGS: LUNG BASES: The visualized lung bases are unremarkable. Solitary pacer electrode is in the right ventricle. LIVER, GALLBLADDER, AND BILIARY TREE: The liver is normal in size, shape, and attenuation. No focal hepatic lesion or biliary ductal dilatation is present. The gallbladder is unremarkable with no evidence of radiopaque gallstones, gallbladder wall thickening, or obvious pericholecystic inflammatory changes. PANCREAS: The pancreatic head is compressed from right upper quadrant hematoma to the body and the tail appears unremarkable. SPLEEN: Unremarkable. ADRENAL GLANDS: Unremarkable. KIDNEYS AND URETERS: The kidneys are normal in size, shape, and attenuation. No hydronephrosis, hydroureter, or calculi seen. No perinephric stranding. BLADDER: Unremarkable. GASTROINTESTINAL TRACT: There is scattered diverticuli, stool and gas in the colon without distention. The small bowel loops are normal caliber. The stomach is nondistended. Within the right upper quadrant there is a large hematoma with active bleeding seen with splaying of the C-loop. The exact origin of the bleed is not known. It may be from duodenal ulcer and subsequently rupture or mesenteric right upper quadrant bleed.. Patient is on blood thinners. ABDOMINAL WALL: No significant hernia is appreciated. LYMPH NODES: Normal. VASCULAR: Unremarkable. PELVIC VISCERA: Unremarkable. OSSEOUS STRUCTURES: No aggressive lytic or sclerotic process seen CT/CT abdomen pelvis w IV con IMPRESSION: Large right upper quadrant hematoma with active bleeding. Exact site of origin is not known. Potentially could be coming off a duodenal ulcer bleed with extraluminal extravasation or right upper quadrant mesentery. The pancreatic head is not well visualized but a bleed arising from the pancreatic head is considered less likely. Results were immediately discussed with Chung PETERSON by phone at 10:00 PM. Fleischner guidelines were followed.
[2023-10-14 17:35] VITALS: BP 214/124; PULSE 62; RESP 20; TEMP 36.4; O2SAT 100; BMI 36.1
--- NOTE | 2023-10-14 17:35 | ED_ITS ---
HPI - General Adult General Chief complaint: Abdominal Pain Stated complaint: abd pain, Time Seen by Provider: 10/14/23 18:00 Source: patient Mode of arrival: ambulatory Limitations: no limitations History of Present Illness HPI narrative: Patient is a 58 year old assigned male at with a history of HTN, alcohol abuse, atrial fib on Eliquis, NICM with a pacemaker, and HfpEF, presenting to the emergency department today with abdominal pain, nausea, and vomiting. Patient states that over the last 2 days he has had nausea, vomiting, and abdominal pain. Patient states that he drinks for 3-4 days in a row at least a 12 pack and shots, then takes a few days off of drinking. Patient states that he is on his few days off of drinking currently. Patient denies any dizziness, lightheadedness, fever, chills, blurry vision, double vision, loss of vision, chest pain, difficulty breathing, shortness of breath, back pain, night sweats, pain with urination, increased urinary frequency, increased urinary urgency, blood in his urine or stool, syncope or a near syncopal episode, recent trauma or falls, bowel incontinence, bladder incontinence, bowel retention, bladder retention, or any other complaints at this time. Onset (ago): day(s) (2) Location: abdomen Severity scale (1-10): 4 Relieving factors: none Exacerbating factors: none Associated symptoms: nausea/vomiting Treatments prior to arrival: none Related Data Home Medications Medication Instructions Recorded Confirmed lisinopril 20 mg tablet 20 mg PO DAILY 04/10/23 10/11/23 Previous Rx's Medication Instructions Recorded apixaban 5 mg tablet (Eliquis) 5 mg PO BID 90 days #180 tabs 01/31/22 metoprolol succinate 200 mg 200 mg PO DAILY #90 tabs 03/28/23 tablet,extended release 24 hr blood pressure monitor (Blood #1 ea 04/25/23 Pressure Kit) amiodarone 200 mg tablet 200 mg PO DAILY #90 tabs 09/18/23 Allergies Allergy/AdvReac Type Severity Reaction Status Date / Time No Known Allergies Allergy Verified 10/11/23 13:54 Review of Systems 2 Constitutional: Constitutional: Reports no additional constitutional complaints, Denies chills, Denies fever(s) and Denies night sweats Eyes: Eyes: Reports no additional eye complaints, Denies blurry vision, Denies change in vision, Denies diplopia, Denies eye discharge, Denies loss of vision and Denies eye pain ENT: Denies dizziness Cardiovascular: Cardiovascular: Reports no additional cardiovascular complaints, Denies chest pain, Denies lightheadedness, Denies Loss of Consciousness and Denies dyspnea Respiratory: Respiratory: Reports no additional respiratory complaints and Denies dyspnea Gastrointestinal: Gastrointestinal: Reports no additional gastrointestinal complaints, Reports abdominal pain, Denies melena, Denies hematochezia, Denies change in bowel habits, Denies change in stool character, Reports nausea and Reports vomiting Genitourinary: Genitourinary: Reports no additional male genitourinary complaints, Denies hematuria, Denies oliguria, Denies difficulty urinating, Denies dysuria, Denies urinary frequency, Denies urinary hesitancy, Denies urinary incontinence and Denies urinary urgency Musculoskeletal: Musculoskeletal: Reports no additional musculoskeletal complaints, Denies numbness and Denies tingling Neurologic: Denies dizziness, Denies loss of vision, Denies numbness and Denies tingling Psychiatric: Psychiatric: Reports no additional psychiatric complaints Endocrine: Endocrine: Reports no additional endocrine complaints Hematologic/Lymphatic: Hematologic/Lymphatic: Reports no additional hematologic/lymphatic complaints Allergic/Immunologic: Allergic/Immunologic: Reports no additional allergic/immunologic complaints [facility] Past Medical History Attestation statement: The following information was validated with the patient. Source: old records reviewed and nursing notes reviewed Medical History History of cardioversion FARHEEN on CPAP Alcohol abuse HTN (hypertension) (HFpEF) heart failure with preserved ejection fraction Atrial fibrillation Surgical History Status post ORIF of fracture of ankle S/P hip replacement Family History Family History Mother HTN (hypertension) Diabetes mellitus Father Diabetes mellitus HTN (hypertension) Social History Social History Household Members: Family Household Members Other:: Girlfriend and daughter Housing: Apartment Are you a primary patient care associate to a significant other at home: No Do you presently have visiting nurse or other home services: No Alcohol intake: current Alcohol intake frequency: 3 or more drinks per day Alcohol type: beer Patient Tobacco Use Status: Never used Tobacco e-Cigarette/Vaping Use: Never Used Second Hand Smoke Exposure: No Substance Use Type: Marijuana Advance Directives: Yes Advance Directives on File: Yes Advance Directives Date on File: 01/25/21 service: No Current occupational status: retired Cognitive needs: No Hearing needs: No Vision needs: No Physical Exam ED Vital Signs: Vital Signs - 24 hr 10/14/23 17:35 10/14/23 18:37 10/14/23 20:30 Temperature 97.5 F 97.5 F 98.3 F Pulse Rate 62 62 66 Respiratory Rate 20 16 15 Blood Pressure 214/124 H 192/109 H 173/100 H Pulse Oximetry 100 97 95 Oxygen Delivery Method Room Air Room Air Room Air 10/14/23 22:06 Temperature Pulse Rate 71 Respiratory Rate 16 Blood Pressure 162/110 H Pulse Oximetry 96 Oxygen Delivery Method Room Air BMI result Body Mass Index 36.1 Const General: cooperative, no acute distress, alert and awake Nutritional Appearance: well nourished Orientation/consciousness: patient oriented x3 Limitations: no limitations HENMT Head: Yes normal to inspection and Yes atraumatic Ears: hearing grossly normal bilaterally and external ears normal General nose exam: Normal external nose present, no nasal discharge noted and no epistaxis Face and sinus: Yes normal facial exam, No abrasion and No laceration Mouth: Normal oral and palatal mucosa present, no drooling and no muffled voice Eyes General: appearance normal, both eyes and all related structures Periorbital: periorbital findings normal Eyelids: Yes eyelids normal Conjunctivae: conjunctivae normal Pupils: Equal, round and reactive pupils present EOM: EOMs intact bilaterally Neck Neck: Yes normal visual inspection, Yes full ROM and Yes no lymphadenopathy Chest Chest palpation & inspection: normal inspection of the chest Resp Effort & Inspection: normal respiratory effort and able to speak in complete sentences GI Inspection: Yes normal to inspection Palpation (GI): Soft to palpation, Firmness to palpation present (GI) in the RUQ, Tenderness to palpation present (GI) in the RUQ, no guarding and not rigid Neuro General: patient oriented x3 and moves all extremities Cranial nerves: Yes Equal, round and reactive pupils present Cognition (Neuro): normal cognition Motor exam (neuro): 5/5 motor strength present throughout Sensory Exam: Normal double simultaneous stimulation for sensation Coordination: [id number] test normal Extrem General: Yes normal to inspection, Yes full ROM and Yes capillary refill normal Psych Appearance: grossly normal Mental Status: mental status grossly normal Affect: normal affect Attitude: cooperative Thought process: Normal thought process present Thought content: Normal thought content present Insight: Good insight present (Psych) Course Course Course Narrative: Patient complains of abdominal pain starting this morning with nausea and vomiting, diarrhea as well 2 or 3 times today Patient is a daily drinker, denies any prior surgeries His cardiac history of AFib, V-tach episode in past requiring defibrillation, ICD placement, he is on beta-blockers Pain is mostly on the right and is tender on both lower and upper right sides Labs are ordered Blood pressure 214/124 noted, he is in a lot of pain This is rapid medical exam done in triage pending full evaluation and dispo by ER provider Medications Administered Discontinued Medications Generic Name Dose Route Start Last Admin Trade Name Freq PRN Reason Stop Dose Admin Al Hydroxide/Mg Hydroxide 15 ml 10/14/23 20:10 10/14/23 21:11 Magnesium Hydrox/Alum Hydrox 30 Ml Oral.Susp PO 10/14/23 20:11 15 ml ONCE ONE Administration Hydromorphone HCl 1 mg 10/14/23 19:30 10/14/23 19:44 Hydromorphone Hcl 1 Mg/Ml Syringe IVPUSH 10/14/23 19:31 1 mg ONCE ONE Administration Protocol Hydromorphone HCl 1 mg 10/14/23 23:31 10/14/23 23:42 Hydromorphone Hcl 1 Mg/Ml Syringe IVPUSH 10/14/23 23:32 1 mg ONCE ONE Administration Protocol Sodium Chloride 1,000 mls @ 999 mls/hr 10/14/23 18:15 10/14/23 18:17 Ns IV 10/14/23 19:15 999 mls/hr .Q1H1M TIGIST Administration Sodium Chloride 1,000 mls @ 999 mls/hr 10/14/23 20:15 10/14/23 21:11 Ns IV 10/14/23 21:15 999 mls/hr .Q1H1M TIGIST Administration Prothrombin Complex Concent ( 80 mls @ 480 mls/hr 10/14/23 22:29 10/14/23 22:53 Human) 2,000 unit/ IV IV 10/14/23 22:38 480 mls/hr Miscellaneous Supplies .Q10M ONE Administration Iohexol 100 ml 10/14/23 20:48 10/14/23 20:49 Iohexol 350 Mg/Ml 100 Ml Infus..Btl IV 10/14/23 20:49 85 ml ONCE ONE Administration Metoclopramide HCl 10 mg 10/14/23 21:39 10/14/23 22:06 Metoclopramide Hcl 10 Mg/2 Ml Vial IVPUSH 10/14/23 21:40 Not Given ONCE ONE Morphine Sulfate 4 mg 10/14/23 18:04 10/14/23 18:17 Morphine Sulfate 4 Mg/Ml Cartridge IVPUSH 10/14/23 18:05 4 mg ONCE ONE Administration Protocol Ondansetron HCl 4 mg 10/14/23 18:01 10/14/23 18:17 Ondansetron Hcl 4 Mg/2 Ml Vial IVPUSH 10/14/23 18:02 4 mg ONCE ONE Administration Pantoprazole Sodium 40 mg 10/14/23 20:10 10/14/23 21:10 Pantoprazole Sodium 40 Mg/10 Ml Vial IVPUSH 10/14/23 20:11 40 mg ONCE ONE Administration Medical Decision Making Medical Decision Making MDM Narrative: Patient is a 58 year old assigned male at with a history of HTN, alcohol abuse, atrial fib on Eliquis, NICM with a pacemaker, and HfpEF presenting to the emergency department today with RUQ abdominal pain, nausea, and vomiting. Patient's physical exam was as noted in the physical exam portion of this note. Patient's blood work was unremarkable. Patient's urine showed no acute process. Patient's EKG was unremarkable. Patient's abdomen/pelvis CT showed a large RUQ hematoma with active bleeding from an unknown source. I spoke to the general surgery team who recommended transfer to a tertiary care center for interventional radiology as well as giving the patient kcentra. [facility] I explained my physical exam findings as well as all test results to the patient. I answered all questions asked by the patient. Patient verbalized agreement and understanding with this treatment plan and transfer. Differential Diagnosis Differential Diagnoses: The differential diagnosis associated with the presentation includes RUQ bleeding hematoma with unknown source Abdominal pain Nausea Vomiting Admission/Observation Consideration of admission/observation: Escalation of care including admission/observation considered Patient transferred to [facility] Provider Management of the patient was discussed with: [employer] Operator (spoke to the general surgery team as noted in the MDM Rationale portion of this note.) Lab Data [facility] Lab Attestation statement: I reviewed the patient's lab results. My interpretation of these results are in the MDM Rationale portion of this note. 10/14/23 18:09 10/14/23 18:09 Labs: Lab Results 10/14/23 10/14/23 10/14/23 Range/Units 18:09 18:09 18:09 WBC 11.5 H (4.8-10.8) X10*3/uL RBC 4.97 (4.60-5.80) X10*6/uL Hgb 14.8 (14.0-18.0) g/dl Hct 44.1 (42.0-52.0) % MCV 88.7 (80.0-98.0) fL MCH 29.8 (27.0-33.0) pg MCHC 33.6 (31.0-36.0) g/dl RDW 13.0 (11.0-16.0) % Plt Count 299 (160-400) X10*3/uL MPV 10.7 (9.4-12.4) fL Immature Gran % (Auto) 0.4 (0.0-0.4) % Neut % (Auto) 83.3 H (45-73) % Lymph % (Auto) 11.9 L (20-40) % [place] % (Auto) 3.7 (2-11) % Eos % (Auto) 0.3 (0-4) % Baso % (Auto) 0.4 (0-2) % Lymph # (Auto) 1.4 (1.2-4.9) X10*3/uL [place] # (Auto) 0.4 (0.1-1.2) X10*3/uL Eos # (Auto) 0.0 (0.0-0.4) X10*3/uL Baso # (Auto) 0.1 (0.0-0.2) X10*3/uL Abs Immat Gran (auto) 0.05 H (0.00-0.03) X10*3/uL Absolute Neuts (auto) 9.6 H (2.0-8.3) x10*3/uL Absolute Nucleated RBC 0.000 (0.0-0.012) X10*3/uL Nucleated RBC % (auto) 0.0 (0.0-0.2) /100WBC PT (11.1-13.3) SEC INR (0.9-1.1) APTT (26.0-36.8) SEC Sodium 141 (135-145) mmol/L Potassium 4.1 (3.3-5.1) mmol/L Chloride 106 (96-108) mmol/L Carbon Dioxide 21 L (22-29) mmol/L Anion Gap 18 (12-20) BUN 10 (9-16) mg/dL Creatinine 1.12 (0.5-1.4) mg/dL Estim Creat Clear Calc 107.4 Estimated GFR > 60 Random Glucose 144 H (60-115) mg/dL Calcium 10.0 (8.4-10.2) mg/dL Total Bilirubin 0.9 0.9 (0.0-1.0) mg/dL Direct Bilirubin 0.4 (0.0-0.5) mg/dL AST 26 26 (5-37) U/L ALT 19 (0-40) U/L Alkaline Phosphatase (39-117) U/L Troponin I High Sens (<3.5-35.0) ng/L Total Protein (6.5-8.0) g/dL Albumin (3.5-5.0) g/dL Lipase (8-78) U/L Urine Color Urine Appearance Urine pH (5.0-9.0) Ur Specific [place] (1.005-1.025) Urine Protein (Neg-Trace) mg/dL Urine Glucose (UA) (Negative) mg/dL Urine Ketones (Negative) mg/dL Urine Blood (Negative) Urine Nitrite (Negative) Ur Leukocyte Esterase (Negative) Influenza Type A (PCR) (Negative) Influenza Type B (PCR) (Negative) RSV RNA Qual (PCR) (Negative) SARS-CoV-2 RNA (RT-PCR) (Negative) Blood Type 10/14/23 10/14/23 10/14/23 Range/Units 18:09 18:09 18:09 WBC (4.8-10.8) X10*3/uL RBC (4.60-5.80) X10*6/uL Hgb (14.0-18.0) g/dl Hct (42.0-52.0) % MCV (80.0-98.0) fL MCH (27.0-33.0) pg MCHC (31.0-36.0) g/dl RDW (11.0-16.0) % Plt Count (160-400) X10*3/uL MPV (9.4-12.4) fL Immature Gran % (Auto) (0.0-0.4) % Neut % (Auto) (45-73) % Lymph % (Auto) (20-40) % [place] % (Auto) (2-11) % Eos % (Auto) (0-4) % Baso % (Auto) (0-2) % Lymph # (Auto) (1.2-4.9) X10*3/uL [place] # (Auto) (0.1-1.2) X10*3/uL Eos # (Auto) (0.0-0.4) X10*3/uL Baso # (Auto) (0.0-0.2) X10*3/uL Abs Immat Gran (auto) (0.00-0.03) X10*3/uL Absolute Neuts (auto) (2.0-8.3) x10*3/uL Absolute Nucleated RBC (0.0-0.012) X10*3/uL Nucleated RBC % (auto) (0.0-0.2) /100WBC PT (11.1-13.3) SEC INR (0.9-1.1) APTT (26.0-36.8) SEC Sodium (135-145) mmol/L Potassium (3.3-5.1) mmol/L Chloride (96-108) mmol/L Carbon Dioxide (22-29) mmol/L Anion Gap (12-20) BUN (9-16) mg/dL Creatinine (0.5-1.4) mg/dL Estim Creat Clear Calc Estimated GFR Random Glucose (60-115) mg/dL Calcium (8.4-10.2) mg/dL Total Bilirubin (0.0-1.0) mg/dL Direct Bilirubin (0.0-0.5) mg/dL AST (5-37) U/L ALT 19 (0-40) U/L Alkaline Phosphatase 101 101 (39-117) U/L Troponin I High Sens 3.0 (<3.5-35.0) ng/L Total Protein 8.3 H 8.4 H (6.5-8.0) g/dL Albumin 4.4 (3.5-5.0) g/dL Lipase (8-78) U/L Urine Color Urine Appearance Urine pH (5.0-9.0) Ur Specific [place] (1.005-1.025) Urine Protein (Neg-Trace) mg/dL Urine Glucose (UA) (Negative) mg/dL Urine Ketones (Negative) mg/dL Urine Blood (Negative) Urine Nitrite (Negative) Ur Leukocyte Esterase (Negative) Influenza Type A (PCR) (Negative) Influenza Type B (PCR) (Negative) RSV RNA Qual (PCR) (Negative) SARS-CoV-2 RNA (RT-PCR) (Negative) Blood Type 10/14/23 10/14/23 10/14/23 Range/Units 18:09 18:20 19:37 WBC (4.8-10.8) X10*3/uL RBC (4.60-5.80) X10*6/uL Hgb (14.0-18.0) g/dl Hct (42.0-52.0) % MCV (80.0-98.0) fL MCH (27.0-33.0) pg MCHC (31.0-36.0) g/dl RDW (11.0-16.0) % Plt Count (160-400) X10*3/uL MPV (9.4-12.4) fL Immature Gran % (Auto) (0.0-0.4) % Neut % (Auto) (45-73) % Lymph % (Auto) (20-40) % [place] % (Auto) (2-11) % Eos % (Auto) (0-4) % Baso % (Auto) (0-2) % Lymph # (Auto) (1.2-4.9) X10*3/uL [place] # (Auto) (0.1-1.2) X10*3/uL Eos # (Auto) (0.0-0.4) X10*3/uL Baso # (Auto) (0.0-0.2) X10*3/uL Abs Immat Gran (auto) (0.00-0.03) X10*3/uL Absolute Neuts (auto) (2.0-8.3) x10*3/uL Absolute Nucleated RBC (0.0-0.012) X10*3/uL Nucleated RBC % (auto) (0.0-0.2) /100WBC PT (11.1-13.3) SEC INR (0.9-1.1) APTT (26.0-36.8) SEC Sodium (135-145) mmol/L Potassium (3.3-5.1) mmol/L Chloride (96-108) mmol/L Carbon Dioxide (22-29) mmol/L Anion Gap (12-20) BUN (9-16) mg/dL Creatinine (0.5-1.4) mg/dL Estim Creat Clear Calc Estimated GFR Random Glucose (60-115) mg/dL Calcium (8.4-10.2) mg/dL Total Bilirubin (0.0-1.0) mg/dL Direct Bilirubin (0.0-0.5) mg/dL AST (5-37) U/L ALT (0-40) U/L Alkaline Phosphatase (39-117) U/L Troponin I High Sens 3.4 (<3.5-35.0) ng/L Total Protein (6.5-8.0) g/dL Albumin 4.5 (3.5-5.0) g/dL Lipase 65 (8-78) U/L Urine Color Urine Appearance Urine pH (5.0-9.0) Ur Specific [place] (1.005-1.025) Urine Protein (Neg-Trace) mg/dL Urine Glucose (UA) (Negative) mg/dL Urine Ketones (Negative) mg/dL Urine Blood (Negative) Urine Nitrite (Negative) Ur Leukocyte Esterase (Negative) Influenza Type A (PCR) NEGATIVE (Negative) Influenza Type B (PCR) NEGATIVE (Negative) RSV RNA Qual (PCR) NEGATIVE (Negative) SARS-CoV-2 RNA (RT-PCR) NEGATIVE (Negative) Blood Type 03/30/24 03/30/24 Range/Units 21:44 22:35 WBC (4.8-10.8) X10*3/uL RBC (4.60-5.80) X10*6/uL Hgb (14.0-18.0) g/dl Hct (42.0-52.0) % MCV (80.0-98.0) fL MCH (27.0-33.0) pg MCHC (31.0-36.0) g/dl RDW (11.0-16.0) % Plt Count (160-400) X10*3/uL MPV (9.4-12.4) fL Immature Gran % (Auto) (0.0-0.4) % Neut % (Auto) (45-73) % Lymph % (Auto) (20-40) % [place] % (Auto) (2-11) % Eos % (Auto) (0-4) % Baso % (Auto) (0-2) % Lymph # (Auto) (1.2-4.9) X10*3/uL [place] # (Auto) (0.1-1.2) X10*3/uL Eos # (Auto) (0.0-0.4) X10*3/uL Baso # (Auto) (0.0-0.2) X10*3/uL Abs Immat Gran (auto) (0.00-0.03) X10*3/uL Absolute Neuts (auto) (2.0-8.3) x10*3/uL Absolute Nucleated RBC (0.0-0.012) X10*3/uL Nucleated RBC % (auto) (0.0-0.2) /100WBC PT 14.5 H (11.1-13.3) SEC INR 1.2 H (0.9-1.1) APTT 28.3 (26.0-36.8) SEC Sodium (135-145) mmol/L Potassium (3.3-5.1) mmol/L Chloride (96-108) mmol/L Carbon Dioxide (22-29) mmol/L Anion Gap (12-20) BUN (9-16) mg/dL Creatinine (0.5-1.4) mg/dL Estim Creat Clear Calc Estimated GFR Random Glucose (60-115) mg/dL Calcium (8.4-10.2) mg/dL Total Bilirubin (0.0-1.0) mg/dL Direct Bilirubin (0.0-0.5) mg/dL AST (5-37) U/L ALT (0-40) U/L Alkaline Phosphatase (39-117) U/L Troponin I High Sens (<3.5-35.0) ng/L Total Protein (6.5-8.0) g/dL Albumin (3.5-5.0) g/dL Lipase (8-78) U/L Urine Color Dark Yellow Urine Appearance Clear Urine pH 5.5 (5.0-9.0) Ur Specific [place] >= 1.030 H (1.005-1.025) Urine Protein Trace (Neg-Trace) mg/dL Urine Glucose (UA) Negative (Negative) mg/dL Urine Ketones 15 (Negative) mg/dL Urine Blood Negative (Negative) Urine Nitrite Negative (Negative) Ur Leukocyte Esterase Negative (Negative) Influenza Type A (PCR) (Negative) Influenza Type B (PCR) (Negative) RSV RNA Qual (PCR) (Negative) SARS-CoV-2 RNA (RT-PCR) (Negative) Blood Type O Positive Independent Interpretation I performed an independent interpretation of an: EKG and CT Scan Interpretation: My interpretation is in agreement with the radiologist's impression of this imaging study. - EXAMINATION: CT ABDOMEN AND PELVIS WITH CONTRAST CLINICAL INFORMATION: Abdominal pain, nausea and vomiting. COMPARISON: None available. TECHNIQUE: Multidetector volumetric images were obtained from the superior aspect of the liver through the pubic symphysis following administration 85 mL of Omnipaque 350 intravenous contrast. Sagittal and coronal reformatted images were obtained on the technologist's workstation. Oral contrast: No This CT examination was performed using dose optimization techniques as appropriate, variously including the following: *Automated exposure control *Adjustment of mA and/or kV according to patient size (this includes techniques or standardized protocols for targeted exams where dose is matched to indication/reason for exam; i.e. extremities or head) *Use of iterative reconstruction technique DLP: 1082 mGy-cm FINDINGS: LUNG BASES: The visualized lung bases are unremarkable. Solitary pacer electrode is in the right ventricle. LIVER, GALLBLADDER, AND BILIARY TREE: The liver is normal in size, shape, and attenuation. No focal hepatic lesion or biliary ductal dilatation is present. The gallbladder is unremarkable with no evidence of radiopaque gallstones, gallbladder wall thickening, or obvious pericholecystic inflammatory changes. PANCREAS: The pancreatic head is compressed from right upper quadrant hematoma to the body and the tail appears unremarkable. SPLEEN: Unremarkable. ADRENAL GLANDS: Unremarkable. KIDNEYS AND URETERS: The kidneys are normal in size, shape, and attenuation. No hydronephrosis, hydroureter, or calculi seen. No perinephric stranding. BLADDER: Unremarkable. GASTROINTESTINAL TRACT: There is scattered diverticuli, stool and gas in the colon without distention. The small bowel loops are normal caliber. The stomach is nondistended. Within the right upper quadrant there is a large hematoma with active bleeding seen with splaying of the C-loop. The exact origin of the bleed is not known. It may be from duodenal ulcer and subsequently rupture or mesenteric right upper quadrant bleed.. Patient is on blood thinners. ABDOMINAL WALL: No significant hernia is appreciated. LYMPH NODES: Normal. VASCULAR: Unremarkable. PELVIC VISCERA: Unremarkable. OSSEOUS STRUCTURES: No aggressive lytic or sclerotic process seen CT/CT abdomen pelvis w IV con IMPRESSION: Large right upper quadrant hematoma with active bleeding. Exact site of origin is not known. Potentially could be coming off a duodenal ulcer bleed with extraluminal extravasation or right upper quadrant mesentery. The pancreatic head is not well visualized but a bleed arising from the pancreatic head is considered less likely. Results were immediately discussed with Chung PETERSON by phone at 10:00 PM. Fleischner guidelines were followed. Dictated By: Ian Stanford MD Signed By: Electronically signed by Ian Stanford MD 10/14/230 - Vent. Rate: 055 BPM Atrial Rate: 055 BPM P-R Int: 166 ms QRS Dur: 076 ms QT Int: 488 ms P-R-T Axes: 077 018 044 degrees QTc Int: 466 ms Sinus bradycardia with sinus arrhythmia Otherwise normal ECG When compared with ECG of 08-MAY-2023 17:52, T wave amplitude has increased in Anterior leads QT has lengthened DD/ [id number] Radiology Impression Discussion of test interpretation with radiology: I have reviewed the radiologist's reading. Chronic Conditions Patient?s care impacted by: Hypertension Critical Care Time Critical Care Time Critical Care Time: Yes Total Critical Care Time: 127 Attestation: I spent 127 minutes of Critical Care Time with this patient. This does not include time spent on separately reported billable procedures. Discharge Plan Discharge Clinical Impression: Abdominal hematoma Patient Disposition: [facility] Transfer Details: [facility] Dr. Mark Arora accepting to their ED Prescriptions: No Action Eliquis 5 mg tablet 5 mg PO BID 90 Days Qty: 180 3RF metoprolol succinate 200 mg tablet extended release 24 hr 200 mg PO DAILY Qty: 90 3RF lisinopril 20 mg tablet 20 mg PO DAILY (DME) blood pressure monitor [Blood Pressure Kit] Kit See Rx Instructions .Route Qty: 1 0RF Rx Instructions: As directed amiodarone 200 mg tablet 200 mg PO DAILY Qty: 90 3RF
--- NOTE | 2023-10-14 17:45 | ECG_ITS ---
Test Reason : PAIN Blood Pressure : / mmHG Vent. Rate : 055 BPM Atrial Rate : 055 BPM P-R Int : 166 ms QRS Dur : 076 ms QT Int : 488 ms P-R-T Axes : 077 018 044 degrees QTc Int : 466 ms Sinus bradycardia with sinus arrhythmia Otherwise normal ECG When compared with ECG of 08-MAY-2023 17:52, T wave amplitude has increased in Anterior leads QT has lengthened Referred By: Alexis Marin Electronically Signed By:Tato Delgado
[2023-10-14 18:15] LABS: MANUAL DIFF FLAG NO
[2023-10-14 18:17] LABS: Basophils Absolute Auto 0.1 X10*3/uL (0.0-0.2); Basophils Percent Auto 0.4 % (0-2); Eosinophils Percent Auto 0.3 % (0-4); Hematocrit 44.1 % (42.0-52.0); Hemoglobin 14.8 g/dl (14.0-18.0); Imm Gran Abs Auto 0.05 X10*3/uL (0.00-0.03); Imm Gran Pct Auto 0.4 % (0.0-0.4); Lymphocytes Absolute Auto 1.4 X10*3/uL (1.2-4.9); Lymphocytes Percent Auto 11.9 % (20-40); Mean Corpuscular HGB Conc 33.6 g/dl (31.0-36.0); Mean Corpuscular Hemoglobin 29.8 pg (27.0-33.0); Mean Corpuscular Volume 88.7 fL (80.0-98.0); Mean Platelet Volume 10.7 fL (9.4-12.4); Monocytes Absolute Auto 0.4 X10*3/uL (0.1-1.2); Monocytes Percent Auto 3.7 % (2-11); Neutrophils Absolute Auto 9.6 x10*3/uL (2.0-8.3); Neutrophils Percent Auto 83.3 % (45-73); Platelet Count 299 X10*3/uL (160-400); Red Blood Count 4.97 X10*6/uL (4.60-5.80); White Blood Count 11.5 X10*3/uL (4.8-10.8)
[2023-10-14] MEDS: Morphine Sulfate 4 MG/ML CARTRIDGE IVPUSH (18:17)
[2023-10-14] MEDS: 0.9 % Sodium Chloride 1,000 ML 999 ML IV ×2 (18:17→21:11)
[2023-10-14] MEDS: ondansetron HCL 4 MG/2 ML VIAL IVPUSH (18:17)
[2023-10-14 18:32] LABS: Alanine Aminotransferase 19 U/L (0-40); Albumin Level 4.4 g/dL (3.5-5.0); Alkaline Phosphatase 101 U/L (39-117); Aspartate Amino Transferase 26 U/L (5-37); Bilirubin Direct 0.4 mg/dL (0.0-0.5); Bilirubin Total 0.9 mg/dL (0.0-1.0); Lipase 65 U/L (8-78); Total Protein 8.3 g/dL (6.5-8.0)
[2023-10-14 18:33] LABS: Alanine Aminotransferase 19 U/L (0-40); Albumin Level 4.5 g/dL (3.5-5.0); Alkaline Phosphatase 101 U/L (39-117); Anion Gap 18 (12-20); Aspartate Amino Transferase 26 U/L (5-37); Bilirubin Total 0.9 mg/dL (0.0-1.0); Blood Urea Nitrogen 10 mg/dL (9-16); Carbon Dioxide 21 mmol/L (22-29); Chloride 106 mmol/L (96-108); Creatinine Clr Calc Pharmacy 107.4; Estimated Glomerular Filt Rate > 60; Glucose Random 144 mg/dL (60-115); Potassium 4.1 mmol/L (3.3-5.1); Sodium 141 mmol/L (135-145); Total Protein 8.4 g/dL (6.5-8.0)
[2023-10-14 18:37] VITALS: BP 192/109; PULSE 62; RESP 16; TEMP 36.4; O2SAT 97
[2023-10-14 19:02] LABS: Influenza A PCR NEGATIVE (Negative); Influenza B PCR NEGATIVE (Negative); Resp Syncy Virus RNA Qual PCR NEGATIVE (Negative); SARS COV2 PCR INHOUSE NEGATIVE (Negative)
[2023-10-14] MEDS: HYDROmorphone HCl 1 MG/ML SYRINGE IVPUSH ×2 (19:44→23:42)
[2023-10-14 20:01] LABS: Troponin-I High Sensitivity 3.4 ng/L (<3.5-35.0)
[2023-10-14 20:30] VITALS: BP 173/100; PULSE 66; RESP 15; TEMP 36.8; O2SAT 95
[2023-10-14] MEDS: iohexoL 350 MG/ML 100 ML INFUS..BTL IV (20:49)
[2023-10-14] MEDS: Pantoprazole Sodium 40 MG/10 ML VIAL IVPUSH (21:10)
[2023-10-14] MEDS: Magnesium Hydrox/Alum Hydrox 30 ML ORAL.SUSP 15 ML PO (21:11)
[2023-10-14 21:51] LABS: Appearance Urine Clear; Color Urine Dark Yellow; Glucose Urine UA Negative (Negative); Leukocyte Esterase Urine Negative (Negative); Nitrite Urine Negative (Negative); PH 5.5 (5.0-9.0); Specific Gravity - Urine >= 1.030 (1.005-1.025); Urine Blood Negative (Negative); Urine Ketones 15 mg/dL (Negative); Urine Protein Trace mg/dL (Neg-Trace)
[2023-10-14 22:06] VITALS: BP 162/110; PULSE 71; RESP 16; O2SAT 96
--- NOTE | 2023-10-14 22:07 | PC.NURSE ---
pt refused reglan states he does not feel nauseous anymore. pt reports 10/ abd pain with no improvement with previous medications. Jeanie york.
[2023-10-14] MEDS: Hum Prothrombin Cplx(PCC)4Fact 2,000 UNIT in Container,Empty 0 ML 480 UNIT IV (22:53)
[2023-10-14 23:06] LABS: INTERNATIONAL NORM RATIO 1.2 (0.9-1.1); Prothrombin Time 14.5 SEC (11.1-13.3)
[2023-10-14 23:08] LABS: Partial Thromboplastin Time 28.3 SEC (26.0-36.8)
[2023-10-15 01:14] VITALS: BP 99/60; PULSE 82; RESP 16; TEMP 37.2; O2SAT 98
== END 2023-10-15 01:10 | disposition short-term general hospital (02) ==
PROVIDERS: Physician Assistant Medical; Emergency Provider Emergency Medicine Emergency Medical Services; PCP Nurse Practitioner Family
DX: S36.92XA Contusion of unspecified intra-abdominal organ, initial encounter (principal); R11.2 Nausea with vomiting, unspecified; I11.0 Hypertensive heart disease with heart failure; I50.30 Unspecified diastolic (congestive) heart failure; I48.91 Unspecified atrial fibrillation; F10.10 Alcohol abuse, uncomplicated; Z79.01 Long term (current) use of anticoagulants; Z79.899 Other long term (current) drug therapy; Z95.810 Presence of automatic (implantable) cardiac defibrillator; X58.XXXA Exposure to other specified factors, initial encounter; Y93.9 Activity, unspecified; Y92.9 Unspecified place or not applicable; Y99.9 Unspecified external cause status; Z03.818 Encounter for observation for suspected exposure to other biological agents ruled out
CPT/HCPCS: 0241U; 36415; 74177; 80053; 80076; 81003; 82248; 83690; 84484; 85025; 85610; 85730; 86850; 86900; 86901; 93005; 96361; 96374; 96375; 96376; 99285; C9113; J1170; J2270; J2405; J7168; Q9967

== ENCOUNTER → 2023-10-14 17:45 | Outpatient (BNV) | payer OTHER, SELFPAY | PROVIDERS: Emergency Provider Emergency Medicine Emergency Medical Services; PCP Nurse Practitioner Family; Visit Provider Internal Medicine Cardiovascular Disease | DX: R00.1 Bradycardia, unspecified (principal) | CPT/HCPCS: 93010 ==

== ENCOUNTER 2023-10-26 09:50 | Outpatient (AMB) | payer OTHER, SELFPAY ==
[2023-10-26 09:59] VITALS: BP 100/62; PULSE 76; BMI 35.6
--- NOTE | 2023-10-26 09:59 | A.OFFVIS_ITS ---
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: No Allergies No Known Allergies Allergy (Verified 10/26/23 10:06) Medication List - Last Reconciled 10/26/23 by Rowena Kimble NP-Dami amiodarone 200 mg PO DAILY blood pressure monitor (Blood Pressure Kit) As directed lisinopril 20 mg PO DAILY metoprolol succinate ER 200 mg PO DAILY HPI [facility]/10-14/Duadenol Hematoma HPI Details Nitesh is a 58-year-old male with past medical history of hypertension, obesity, nonischemic cardiomyopathy, paroxysmal atrial fibrillation who was recently presented to [facility] with abdominal discomfort and was found to have an abdominal hematoma he was transferred to [facility] for further management. He did undergo arterial embolization procedure and received 1 unit packed cells. He has been off his anticoagulation and now presents for follow-up. Today he reports he has been doing very well since his hospital discharge over a week ago. He has no abdominal discomfort. No evidence bleeding elsewhere. He states when he had abdominal discomfort it was very severe. No chest discomfort at rest or with activity. No shortness of breath, palpitations, presyncope, syncope, falls. No PND, orthopnea. He is very proud to say he has not had any alcohol in the last 11 days. Compliant with CPAP. Takes meds as directed. [facility] Medical History History of cardioversion FARHEEN on CPAP Alcohol abuse HTN (hypertension) (HFpEF) heart failure with preserved ejection fraction Atrial fibrillation Surgical History Status post ORIF of fracture of ankle S/P hip replacement Family History Mother HTN (hypertension) Diabetes mellitus Father Diabetes mellitus HTN (hypertension) Social History Household Members: Family Household Members Other:: Girlfriend and daughter Housing: Apartment Are you a primary chiropractic care to a significant other at home: No Do you presently have visiting nurse or other home services: No Alcohol intake: current Alcohol intake frequency: 3 or more drinks per day Alcohol type: beer Patient Tobacco Use Status: Never used Tobacco e-Cigarette/Vaping Use: Never Used Second Hand Smoke Exposure: No Substance Use Type: Marijuana Advance Directives Date on File: 01/25/21 service: No Current occupational status: retired Cognitive needs: No Hearing needs: No Vision needs: No Review of Systems Const All systems reviewed & are unremarkable except as noted in HPI and below ENT Denies dizziness Card Denies chest pain, Denies chest pain at rest, Denies chest pain with activity, Denies rapid heart rate, Denies pedal edema, Denies edema, Denies leg edema, Denies lightheadedness, Denies palpitations, Denies dyspnea, Denies dyspnea on exertion and Denies orthopnea Resp Denies cough, Denies dyspnea and Denies dyspnea on exertion GI Denies hematochezia and Denies change in stool character Musc Denies abnormal gait, Denies limited range of motion, Denies muscle cramps, Denies muscle weakness, Denies numbness, Denies radiating pain into limb, Denies stiffness and Denies tingling Neuro Denies abnormal gait, Denies dizziness, Denies numbness and Denies tingling Endo Denies palpitations Physical Exam Vital Signs: Last Vital Signs Pulse 76 10/26/23 09:59 BP 100/62 10/26/23 09:59 BMI result Body Mass Index 35.6 Const General: cooperative, healthy appearing, comfortable and no acute distress Orientation/consciousness: patient oriented x3 Neck Neck: Yes normal visual inspection Resp Effort & Inspection: normal respiratory effort Auscultation: clear to auscultation bilaterally, no rales, no rhonchi and no wheezes Cardio Jugular venous distension: no JVD Rate: regular rate Rhythm: regular rhythm Heart sounds: S1 normal heart sound present, S2 normal heart sound present, no murmurs and no rubs GI Inspection: Yes normal to inspection Neuro General: patient oriented x3 Extrem General: Yes normal to inspection, No no pedal edema and No calf tenderness Psych Appearance: grossly normal Mental Status: mental status grossly normal Speech and movement: Normal speech and movement present Office Procedures Cardiac Device Check Cardiac Device Check Details: AMENDIA single lead ICD interrogation today, VVIR mode, low rate 40, battery 13.4 years, no VT or VF, no high V rates or AF V paced 4.8% of time, OptiVol elevated slightly, RV threshold 0.5 volts at 0.4 millisecond [id number] Cardiac Device Check, single lead implantable defibrillator Procedure code (CPT) selection complete EKG Details: Today, read by me, sinus rhythm with frequent PVC, rate 76, QTC 473 millisecond [id number], Complete Assessment & Plan Assessment & Plan (1) Abdominal hematoma: Code(s): S30.1XXA - Contusion of abdominal wall, initial encounter Plan: He recently presented to [facility] with abdominal pain and found to have a intra-abdominal hematoma. He was transferred to [facility] for further treatment. A scan there showed an 8.5 x 13 x 14 cm hematoma near the duodenum and adjacent mesentery. Was taken off Eliquis. During his admission he underwent successful embolization of the gastroduodenal artery. He reports receiving 1 unit packed cells during that admission. He was discharged 1 week ago and tells me he has been feeling very good since that time. He no longer has any abdominal pain. He has not had any signs of visible bleeding. Labs done 10/20/2023 showed hemoglobin 28.6. Will check a CBC today. If stable then will discuss with material checker regarding restart of Eliquis. Patient states he has no follow-up with any providers at [facility]. Will have him keep December 2023 appointment, to re-evaluate for any bleeding issues, general condition. (2) PAF (paroxysmal atrial fibrillation): Code(s): I48.0 - Paroxysmal atrial fibrillation Plan: History of paroxysmal atrial fibrillation. Currently suppressed with amiodarone. EKG done today shows sinus rhythm with frequent PVC, QTC 473 milliseconds, rate 76. Prior EKG 10/14/2023 showed QTC 466 milliseconds. Did not see mention of atrial fibrillation issues during recent [facility] hospitalization. On last visit he was referred to EP for possible ablation. He has been on Eliquis for anticoagulation however held recently due to hematoma as above. Currently no bleeding issues. Plan to start Eliquis as soon as cleared to do so. . (3) NICM (nonischemic cardiomyopathy): Code(s): I42.8 - Other cardiomyopathies Plan: History of nonischemic cardiomyopathy. Previously thought to be tachycardia induced. Cardiac catheterization 02/2023 with normal coronary arteries. Cardiac MRI with LVEF of 55%, No wall motion abnormalities, Subendocardial delayed enhancement in basal to mid anterolateral segments suggesting fibrosis from possible prior myocarditis, other findings suggestive of diffuse myocardial fibrosis. Last echocardiogram done 05/24/2023 showed EF 65-70%, mild LVH, grade 1 diastolic dysfunction, ascending aorta 4.3 cm. No signs of decompensated heart failure on examination. Will have him continue on lisinopril and metoprolol for neurohormonal modulation. (4) Ventricular tachycardia: Code(s): I47.20 - Ventricular tachycardia, unspecified Plan: Notes indicate history of ventricular tachycardia while in [facility]. He was in atrial fibrillation with very rapid rate and then started having QRS widening. Hence not clear if it is just atrial fibrillation or truly VT. He then underwent an ICD placement. Device interrogation today showing no VT or VF. (5) Alcohol abuse: Code(s): F10.10 - Alcohol abuse, uncomplicated Plan: He is very proud to tell me he has not had any alcohol for the last 11 days. Applauded on this. (6) Morbid obesity: Code(s): E66.01 - Morbid (severe) obesity due to excess calories Plan: Benefits a weight loss reviewed and he states understanding. (7) FARHEEN on CPAP: Code(s): G47.33 - Obstructive sleep apnea (adult) (pediatric); Z99.89 - Dependence on other enabling machines and devices Plan: Continue CPAP. (8) Hospital discharge follow-up: Code(s): Z09 - Encounter for follow-up examination after completed treatment for conditions other than malignant neoplasm Plan: [facility] admission as above (9) ICD (implantable cardioverter-defibrillator) in place: Code(s): Z95.810 - Presence of automatic (implantable) cardiac defibrillator Plan: Office interrogation today shows device is functioning normally. Remote monitoring in use. Next office interrogation due in 6 months. Plan Total time spent including review of records from [facility], documentation, interview and assessment. Orders: Orders Complete Blood Count Auto Diff Today S30.1XXA - Contusion of abdominal wall, initial encounter Coding Level of Care Code Est Pt Level 4 (85603) Diagnoses Abdominal hematoma S30.1XXA PAF (paroxysmal atrial fibrillation) I48.0 NICM (nonischemic cardiomyopathy) I42.8 Ventricular tachycardia I47.20 Alcohol abuse F10.10 Morbid obesity E66.01 FARHEEN on CPAP G47.33; Z99.89 Hospital discharge follow-up Z09 ICD (implantable cardioverter-defibrillator) in place Z95.810 CPT Codes Cardiac Device Check - Cardiac Device 4: [id number] Cardiac Device Check, single lead implantable defibrillator ([id number]) EKG - CPT: 12348-[id number], Complete ([id number]) Time Spent (min) 36
== END 2023-10-26 10:49 | disposition home or self-care (01) ==
PROVIDERS: PCP Nurse Practitioner Family; Visit Provider Nurse Practitioner Family
DX: S30.1XXA Contusion of abdominal wall, initial encounter (principal); I48.0 Paroxysmal atrial fibrillation; I42.8 Other cardiomyopathies; Z95.810 Presence of automatic (implantable) cardiac defibrillator; I47.20 Ventricular tachycardia, unspecified; F10.10 Alcohol abuse, uncomplicated; E66.01 Morbid (severe) obesity due to excess calories; G47.33 Obstructive sleep apnea (adult) (pediatric); Z99.89 Dependence on other enabling machines and devices; Z09 Encounter for follow-up examination after completed treatment for conditions other than malignant neoplasm; I49.3 Ventricular premature depolarization
CPT/HCPCS: 93010; 93282; 99214

== ENCOUNTER 2023-10-26 09:50 | Outpatient (REF) | payer OTHER, SELFPAY ==
[2023-10-26 11:02] LABS: MANUAL DIFF FLAG NO
[2023-10-26 11:05] LABS: Basophils Absolute Auto 0.1 X10*3/uL (0.0-0.2); Basophils Percent Auto 0.5 % (0-2); Eosinophils Absolute Auto 0.1 X10*3/uL (0.0-0.4); Eosinophils Percent Auto 1.2 % (0-4); Hematocrit 31.6 % (42.0-52.0); Hemoglobin 10.3 g/dl (14.0-18.0); Imm Gran Abs Auto 0.05 X10*3/uL (0.00-0.03); Imm Gran Pct Auto 0.5 % (0.0-0.4); Lymphocytes Absolute Auto 1.6 X10*3/uL (1.2-4.9); Lymphocytes Percent Auto 15.3 % (20-40); Mean Corpuscular HGB Conc 32.6 g/dl (31.0-36.0); Mean Corpuscular Hemoglobin 29.1 pg (27.0-33.0); Mean Corpuscular Volume 89.3 fL (80.0-98.0); Mean Platelet Volume 10.8 fL (9.4-12.4); Monocytes Absolute Auto 1.3 X10*3/uL (0.1-1.2); Neutrophils Absolute Auto 7.3 x10*3/uL (2.0-8.3); Neutrophils Percent Auto 70.5 % (45-73); Platelet Count 308 X10*3/uL (160-400); Red Blood Count 3.54 X10*6/uL (4.60-5.80); Red Cell Distribution Width 13.8 % (11.0-16.0); White Blood Count 10.4 X10*3/uL (4.8-10.8)
== END 2023-10-26 09:51 | disposition home or self-care (01) ==
LOC: HO.LAB 09:50
PROVIDERS: PCP Nurse Practitioner Family; Visit Provider Nurse Practitioner Family
DX: S30.1XXA Contusion of abdominal wall, initial encounter (principal); I48.0 Paroxysmal atrial fibrillation; I42.8 Other cardiomyopathies
CPT/HCPCS: 36415; 85025; 93005; 99212

== ENCOUNTER → 2023-11-04 23:59 | Outpatient (BNV) | payer OTHER, SELFPAY ==
--- NOTE | 2023-11-09 12:02 | MHC.OFFVIS ---
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 Allergies No Known Allergies Allergy (Verified 10/26/23 10:06) [facility] Medical History History of cardioversion FARHEEN on CPAP Alcohol abuse HTN (hypertension) (HFpEF) heart failure with preserved ejection fraction Atrial fibrillation Surgical History Status post ORIF of fracture of ankle S/P hip replacement Family History Mother HTN (hypertension) Diabetes mellitus Father Diabetes mellitus HTN (hypertension) Social History Household Members: Family Household Members Other:: Girlfriend and daughter Housing: Apartment Are you a primary behavioral health care manager to a significant other at home: No Do you presently have visiting nurse or other home services: No Alcohol intake: current Alcohol intake frequency: 3 or more drinks per day Alcohol type: beer Patient Tobacco Use Status: Never used Tobacco e-Cigarette/Vaping Use: Never Used Second Hand Smoke Exposure: No Substance Use Type: Marijuana Advance Directives Date on File: 01/25/21 service: No Current occupational status: retired Cognitive needs: No Hearing needs: No Vision needs: No Office Procedures Cardiac Device Check Cardiac Device Check Details: Date of service 11/04/2023; Battery life >13 years; normal lead parameters; no treated VT/VF; ; normal ICD function. [id number] Cardiac Interrogation, implant defibrillator w/interim Procedure code (CPT) selection complete Assessment & Plan Assessment & Plan (1) (HFpEF) heart failure with preserved ejection fraction: Code(s): I50.30 - Unspecified diastolic (congestive) heart failure Category: Medical (2) PAF (paroxysmal atrial fibrillation): Code(s): I48.0 - Paroxysmal atrial fibrillation Category: Medical Plan x Coding Level of Care Code Procedure Only Diagnoses (HFpEF) heart failure with preserved ejection fraction I50.30 PAF (paroxysmal atrial fibrillation) I48.0 CPT Codes Cardiac Device Check - Cardiac Device 13: [id number] Cardiac Interrogation, implant defibrillator w/interim ([id number])
== END ==
PROVIDERS: PCP Nurse Practitioner Family; Visit Provider Internal Medicine
DX: I50.30 Unspecified diastolic (congestive) heart failure (principal); I48.0 Paroxysmal atrial fibrillation; Z95.810 Presence of automatic (implantable) cardiac defibrillator
CPT/HCPCS: 93295

== ENCOUNTER → 2023-11-04 23:59 | Outpatient (BNV) | payer OTHER, SELFPAY ==
--- NOTE | 2023-11-09 12:00 | A.OFFVIS_ITS ---
Intake Visit Reasons: REmote HF monitoring - Medtronic Allergies No Known Allergies Allergy (Verified 10/26/23 10:06) [facility] Medical History History of cardioversion FARHEEN on CPAP Alcohol abuse HTN (hypertension) (HFpEF) heart failure with preserved ejection fraction Atrial fibrillation Surgical History Status post ORIF of fracture of ankle S/P hip replacement Family History Mother HTN (hypertension) Diabetes mellitus Father Diabetes mellitus HTN (hypertension) Social History Household Members: Family Household Members Other:: Girlfriend and daughter Housing: Apartment Are you a primary out of school hours care worker to a significant other at home: No Do you presently have visiting nurse or other home services: No Alcohol intake: current Alcohol intake frequency: 3 or more drinks per day Alcohol type: beer Patient Tobacco Use Status: Never used Tobacco e-Cigarette/Vaping Use: Never Used Second Hand Smoke Exposure: No Substance Use Type: Marijuana Advance Directives Date on File: 01/25/21 service: No Current occupational status: retired Cognitive needs: No Hearing needs: No Vision needs: No Office Procedures Cardiac Device Check Cardiac Device Check Details: Date of service- 11/04/2023; based on impedance data and physiological variables, there is possible OptiVol fluid accumulation from 21 of October to ongoing. [id number] Cardiac Device Interrogation, cardio physiologic monitor Procedure code (CPT) selection complete Assessment & Plan Assessment & Plan (1) NICM (nonischemic cardiomyopathy): Code(s): I42.8 - Other cardiomyopathies Category: Medical Plan x Coding Level of Care Code Procedure Only Diagnoses NICM (nonischemic cardiomyopathy) I42.8 CPT Codes Cardiac Device Check - Cardiac Device 15: [id number] Cardiac Device Interrogation, cardio physiologic monitor ([id number])
== END ==
PROVIDERS: PCP Nurse Practitioner Family; Visit Provider Internal Medicine
DX: I42.8 Other cardiomyopathies (principal); Z95.810 Presence of automatic (implantable) cardiac defibrillator
CPT/HCPCS: 93297

== ENCOUNTER 2024-01-07 06:22 | Emergency (ER) | payer OTHER, SELFPAY ==
[2024-01-07] VITALS (8 sets, daily range): BP systolic 146–201; BP diastolic 77–106; PULSE 51–76; RESP 9–21; TEMP 36.6–36.9; O2SAT 97–100; BMI 33.1
--- NOTE | ~2024-01-07 | CT_ITS ---
EXAMINATION: CT GI bleed abdomen and pelvis with out and with IV contrast CLINICAL INFORMATION: Melanoma and pain. History of GI bleed. COMPARISON: Previous CT of the abdomen and pelvis September 2023 TECHNIQUE: Axial images through the abdomen and pelvis without IV contrast followed by early and delayed axial images following 85 mL Omnipaque 350 IV contrast. Sagittal and coronal reconstructions. This CT examination was performed using dose optimization techniques as appropriate, variously including the following: *Automated exposure control *Adjustment of mA and/or kV according to patient size (this includes techniques or standardized protocols for targeted exams where dose is matched to indication/reason for exam; i.e. extremities or head) *Use of iterative reconstruction technique Patient dose 2804 mgy/cm FINDINGS: There are new embolization coils in the right upper quadrant probably in the GDA. No evidence of active GI bleeding is seen however evaluation of the distal stomach and duodenum is limited due to artifact from coils. The stomach is normal-appearing. The second portion of the duodenum is abnormal appearing with heterogeneous wall thickening and stranding of the surrounding fat. The remainder of the small bowel is normal. There is diverticulosis of the colon. No evidence of diverticulitis. The appendix is normal. The lung bases are clear. Upper normal heart size. Pacemaker AICD seen with tip in the right ventricular apex. The liver, gallbladder, pancreas, right adrenal gland and kidneys are unremarkable. Stable small subcentimeter low-attenuation left adrenal nodule. No imaging follow-up recommended. The body and tail the pancreas are normal. The head of the pancreas is not well visualized due to artifact from embolization coils. Bladder not well visualized due to artifact from left hip replacement but appears unremarkable. Normal sized prostate gland. Atherosclerotic disease. No aneurysm. Small retroperitoneal lymph nodes. No enlarged lymph nodes. No ascites. No hernia. Degenerative changes of the spine and right hip. Left hip replacement. CT/CT gi bleed abd pel wo/w IVcon IMPRESSION: No evidence of active GI bleeding. Abnormal appearance of the second portion of the duodenum which demonstrates heterogeneous wall thickening and stranding of the adjacent fat. Differential would include ulcer, duodenitis and mass. Correlation with endoscopy recommended. New embolization coils in the GDA.
--- NOTE | 2024-01-07 06:51 | ED_ITS ---
HPI - Abdominal Pain General Chief Complaint: GI Bleed Stated Complaint: blood in stools Time Seen by Provider: 01/07/24 06:40 Source: patient Mode of arrival: ambulatory Limitations: no limitations History of Present Illness HPI narrative: Patient is a 58-year-old male who emergency department for evaluation of bloody stools. He reports 3 days of dark red blood from his rectum, states it is noted with bowel movements, while passing gas, but also at times without any movement. Reports it to be large volume noted in the toilet. He also admits to having nausea and vomiting with emesis every 10 minutes yesterday. Last night he took an antinausea medicine and her nausea has since subsided. He reports a vague complaint of abdominal pain but he can not localize it to any particular area. He admits to a history of similar presentation a few months ago which required him to be transferred to [facility] because he was bleeding into his abdomen. He states he has since resumed his Eliquis, however he took his last dose yesterday morning, did not take it at night or today. He denies any trauma or injury. Denies any additional sources of bleeding at this time. Related Data Home Medications ?Medication ?Instructions ?Recorded ?Confirmed lisinopril 20 mg tablet 20 mg PO DAILY 04/10/23 10/26/23 Previous Rx's ?Medication ?Instructions ?Recorded metoprolol succinate 200 mg 200 mg PO DAILY #90 tabs 03/28/23 tablet,extended release 24 hr blood pressure monitor (Blood #1 ea 04/25/23 Pressure Kit) apixaban 5 mg tablet (Eliquis) 5 mg PO BID 90 days #180 tabs 12/04/23 amiodarone 200 mg tablet 200 mg PO DAILY #90 tabs 12/26/23 Allergies Allergy/AdvReac Type Severity Reaction Status Date / Time No Known Allergies Allergy Verified 01/07/24 06:40 [facility] Past Medical History Medical History History of cardioversion FARHEEN on CPAP Alcohol abuse HTN (hypertension) (HFpEF) heart failure with preserved ejection fraction Atrial fibrillation Surgical History Status post ORIF of fracture of ankle S/P hip replacement Family History Family History Mother HTN (hypertension) Diabetes mellitus Father Diabetes mellitus HTN (hypertension) Social History Social History Household Members: Family Household Members Other:: Girlfriend and daughter Housing: Apartment Are you a primary client care specialist to a significant other at home: No Do you presently have visiting nurse or other home services: No Alcohol intake: former Patient Tobacco Use Status: Never used Tobacco Smoked in Last 30 Days: No e-Cigarette/Vaping Use: Never Used Second Hand Smoke Exposure: No Use of substances other than those prescribed or required for medical reasons: Yes Substance Use Type: Marijuana Advance Directives: Yes Advance Directives on File: Yes Advance Directives Date on File: 01/25/21 Do you have a plan to hurt others: No Plan service: No Current occupational status: retired Cognitive needs: No Hearing needs: No Vision needs: No Physical Exam ED Vital Signs: Vital Signs - 24 hr 01/07/24 06:37 01/07/24 07:36 01/07/24 08:25 Temperature 97.8 F 97.9 F Pulse Rate 76 51 53 Respiratory Rate 17 9 L 16 Blood Pressure 146/95 H 169/99 H 197/97 H Pulse Oximetry 97 97 98 Oxygen Delivery Method Room Air Room Air Room Air 01/07/24 09:46 01/07/24 11:12 01/07/24 11:15 Temperature Pulse Rate 51 60 Respiratory Rate 12 16 Blood Pressure 200/106 H 201/101 H 201/101 H Pulse Oximetry 99 97 Oxygen Delivery Method Room Air Room Air BMI result Body Mass Index 33.1 Course Reevaluation(s) Reevaluation #1: CT is without evidence of active GI bleeding, evaluation of the distal stomach and duodenum is limited due to artifact from embolization coils in the GDA, the second portion of the duodenum appears abnormal, wall thickening and stranding of the adjacent fat which may represent ulcer, duodenitis, mass with recommendation for endoscopy. Plan to consult GI. He is noted to be hypertensive 204/106, he admits that he did not take his antihypertensives this morning, he is prescribed lisinopril 20 mg orally and metoprolol succinate 200 mg. At this time he is bradycardic with pulse of 50, would defer metoprolol IV given his bradycardia, patient to receive hydralazine IV and will re-evaluate. Discussed this case with my ED attending, Dr. Strong, at this time do not see indication for KCentra. Time: 10:55 Reevaluation #2: I consulted with Dr. Hernandez who expresses concern for upper GI bleed in recommendation for transfer to tertiary care center given his history and he will likely require endoscopy and further treatment. I spoke with [facility], he is accepted for ED transfer with the accepting physician Dr. Aquino. At this time I feel that he is stable for discharge he is without hypotension, despite rectal bleeding for 3 days, his blood counts remain stable as previously mentioned. Service Observer updated, requesting [facility] transport given upper GI bleed, Time: 11:41 Medical Decision Making Medical Decision Making [facility] Narrative: Patient is a 58-year-old male with past medical history of hypertension, alcohol use disorder, atrial fibrillation on Eliquis, and ICM with a pacemaker, heart failure with preserved eF presents to the emergency department today for evaluation of maroon-colored stools and vague ABD pain On review of his medical records, he was evaluated in this emergency department 10/14/2023 where he was found to have a large right upper quadrant abdominal hematoma with active bleeding from unknown source, he was given Kcentra and was transferred to [facility] where he underwent surgical procedure, he is unable to provide details of his hospital stay at that time. On exam his abdomen is soft, rounded, no notable areas of tenderness. Rectal examination performed with ED RN Lulu, with no external hemorrhoids or fissures, does have maroon-colored blood from the rectal vault. Will obtain CBC to evaluate for leukocytosis/ anemia, CMP and lipase to evaluate for abnormal electrolytes /abnormal renal function/ abnormal hepatic/biliary function, CT of the abdomen and pelvis with GI bleed protocol and Urinalysis. Patient will receive morphine IV for abdominal pain, Zofran 4 mg IV, Protonix 40 mg IV. Lab Data [facility] Lab Attestation statement: I reviewed the patient's lab results. CBC reveals no leukocytosis, normocytic anemia with hemoglobin/hematocrit 12.1/36.9, no thrombocytopenia. No electrolyte derangement. No SAUL. No lactic acidosis. LFTs and lipase within normal range. Occult stool positive 01/07/24 06:57 06/23/24 06:57 Labs: Lab Results 01/07/24 Range/Units 06:57 WBC 8.9 (4.8-10.8) X10*3/uL RBC 4.40 L D (4.60-5.80) X10*6/uL Hgb 12.1 L (14.0-18.0) g/dl Hct 36.9 L (42.0-52.0) % MCV 83.9 (80.0-98.0) fL MCH 27.5 (27.0-33.0) pg MCHC 32.8 (31.0-36.0) g/dl RDW 14.4 (11.0-16.0) % Plt Count 266 (160-400) X10*3/uL MPV 11.8 (9.4-12.4) fL Immature Gran % (Auto) 0.1 (0.0-0.4) % Neut % (Auto) 57.5 (45-73) % Lymph % (Auto) 31.6 (20-40) % Colbert % (Auto) 8.4 (2-11) % Eos % (Auto) 1.5 (0-4) % Baso % (Auto) 0.9 (0-2) % Lymph # (Auto) 2.8 (1.2-4.9) X10*3/uL Colbert # (Auto) 0.7 (0.1-1.2) X10*3/uL Eos # (Auto) 0.1 (0.0-0.4) X10*3/uL Baso # (Auto) 0.1 (0.0-0.2) X10*3/uL Abs Immat Gran (auto) 0.01 (0.00-0.03) X10*3/uL Absolute Neuts (auto) 5.1 (2.0-8.3) x10*3/uL Absolute Nucleated RBC 0.000 (0.0-0.012) X10*3/uL Nucleated RBC % (auto) 0.0 (0.0-0.2) /100WBC PT 13.5 H (11.1-13.3) SEC INR 1.1 (0.9-1.1) Sodium 138 (135-145) mmol/L Potassium 3.8 (3.3-5.1) mmol/L Chloride 105 (96-108) mmol/L Carbon Dioxide 26 (22-29) mmol/L Anion Gap 11 L (12-20) BUN 13 (9-16) mg/dL Creatinine 0.88 (0.5-1.4) mg/dL Estim Creat Clear Calc 130.9 Estimated GFR > 60 Random Glucose 103 (60-115) mg/dL Lactic Acid 1.3 (0.5-2.0) mmol/L Calcium 9.1 D (8.4-10.2) mg/dL Magnesium 1.8 (1.6-2.6) mg/dL Total Bilirubin 0.5 (0.0-1.0) mg/dL AST 24 (5-37) U/L ALT 20 (0-40) U/L Alkaline Phosphatase 75 (39-117) U/L Total Protein 6.8 (6.5-8.0) g/dL Albumin 3.7 (3.5-5.0) g/dL Lipase 16 (8-78) U/L Stool Occult Blood POSITIVE (NEGATIVE) Blood Type O Positive Antibody Screen NEGATIVE Radiology Impression Discussion of test interpretation with radiology: I have reviewed the radiologist's reading. Medications Administered Discontinued Medications Generic Name Dose Route Start Last Admin Trade Name Freq PRN Reason Stop Dose Admin Hydralazine HCl 10 mg 01/07/24 10:55 01/07/24 11:15 Hydralazine Hcl 20 Mg/Ml Vial IVPUSH 01/07/24 10:56 10 mg ONCE ONE Administration Protocol Sodium Chloride 1,000 mls @ 999 mls/hr 01/07/24 07:00 01/07/24 07:42 Ns IV 01/07/24 08:00 Infused .Q1H1M TIGIST Infusion Iohexol 80 ml 01/07/24 08:10 01/07/24 08:12 Iohexol 350 Mg/Ml 75 Ml Infus..Btl IV 01/07/24 08:11 80 ml ONCE ONE Administration Iohexol 100 ml 01/07/24 08:36 01/07/24 08:36 Iohexol 350 Mg/Ml 100 Ml Infus..Btl IV 01/07/24 08:37 85 ml ONCE ONE Administration Morphine Sulfate 4 mg 01/07/24 07:41 01/07/24 08:26 Morphine Sulfate 4 Mg/Ml Cartridge IVPUSH 01/07/24 07:42 4 mg ONCE ONE Administration Protocol Ondansetron HCl 4 mg 01/07/24 07:41 01/07/24 08:26 Ondansetron Hcl 4 Mg/2 Ml Vial IVPUSH 01/07/24 07:42 4 mg ONCE ONE Administration Pantoprazole Sodium 40 mg 01/07/24 07:41 01/07/24 08:26 Pantoprazole Sodium 40 Mg/10 Ml Vial IVPUSH 01/07/24 07:42 40 mg ONCE ONE Administration Critical Care Time Critical Care Time Critical Care Time: Yes Total Critical Care Time: 35 Attestation: I personally attest to this critical care time spent taking care of the patient exclusive of all other billable procedures was approximately 35 minutes including initial evaluation of patient, ordering tests, IV hydralazine due to the hypertension and reassessment, medical consultation, documentation, re- evaluation. Discharge Plan Discharge Clinical Impression: Acute upper GI bleed Patient Disposition: [facility] Transfer Details: [facility] Prescriptions: No Action metoprolol succinate 200 mg tablet extended release 24 hr 200 mg PO DAILY Qty: 90 3RF lisinopril 20 mg tablet 20 mg PO DAILY (DME) blood pressure monitor [Blood Pressure Kit] Kit See Rx Instructions .Route Qty: 1 0RF Rx Instructions: As directed Eliquis 5 mg tablet 5 mg PO BID 90 Days Qty: 180 1RF amiodarone 200 mg tablet 200 mg PO DAILY Qty: 90 3RF Print Language: Greenlandic
[2024-01-07] MEDS: 0.9 % Sodium Chloride 1,000 ML 999 ML IV (07:00)
--- NOTE | 2024-01-07 07:01 | PC.NURSE ---
pt from home, a&ox4, respirations even and unlabored. pt reporting onset of rectal bleeding starting yesterday afternoon, pt reports he had passed gas and a large amount of dark red blood came out, which followed with a trip to the bathroom where the toilet bowl was filled with dark red blood. pt reports hx of similar epiosde, taken to [facility]. pt denies abdominal pain, n/v/d. Sukh HAZARDOUS MATERIALS ANALYST at bedside preforming rectal exam. 20G placed on right forearm, labs obtained and sent. fluid bolus administered at this time.
[2024-01-07 07:04] LABS: MANUAL DIFF FLAG NO
[2024-01-07 07:05] LABS: OBS Int Ctl Valid YES; OBS1 POSITIVE (NEGATIVE)
[2024-01-07 07:12] LABS: Basophils Absolute Auto 0.1 X10*3/uL (0.0-0.2); Basophils Percent Auto 0.9 % (0-2); Eosinophils Absolute Auto 0.1 X10*3/uL (0.0-0.4); Eosinophils Percent Auto 1.5 % (0-4); Hematocrit 36.9 % (42.0-52.0); Hemoglobin 12.1 g/dl (14.0-18.0); Imm Gran Abs Auto 0.01 X10*3/uL (0.00-0.03); Imm Gran Pct Auto 0.1 % (0.0-0.4); Lymphocytes Absolute Auto 2.8 X10*3/uL (1.2-4.9); Lymphocytes Percent Auto 31.6 % (20-40); Mean Corpuscular HGB Conc 32.8 g/dl (31.0-36.0); Mean Corpuscular Hemoglobin 27.5 pg (27.0-33.0); Mean Corpuscular Volume 83.9 fL (80.0-98.0); Mean Platelet Volume 11.8 fL (9.4-12.4); Monocytes Absolute Auto 0.7 X10*3/uL (0.1-1.2); Monocytes Percent Auto 8.4 % (2-11); Neutrophils Absolute Auto 5.1 x10*3/uL (2.0-8.3); Neutrophils Percent Auto 57.5 % (45-73); Platelet Count 266 X10*3/uL (160-400); Red Cell Distribution Width 14.4 % (11.0-16.0); White Blood Count 8.9 X10*3/uL (4.8-10.8)
[2024-01-07 07:14] LABS: INTERNATIONAL NORM RATIO 1.1 (0.9-1.1); Prothrombin Time 13.5 SEC (11.1-13.3)
[2024-01-07 07:17] LABS: Lactic Acid 1.3 mmol/L (0.5-2.0)
[2024-01-07 07:21] LABS: Alanine Aminotransferase 20 U/L (0-40); Albumin Level 3.7 g/dL (3.5-5.0); Alkaline Phosphatase 75 U/L (39-117); Anion Gap 11 (12-20); Aspartate Amino Transferase 24 U/L (5-37); Bilirubin Total 0.5 mg/dL (0.0-1.0); Blood Urea Nitrogen 13 mg/dL (9-16); Calcium 9.1 mg/dL (8.4-10.2); Carbon Dioxide 26 mmol/L (22-29); Chloride 105 mmol/L (96-108); Creatinine Clr Calc Pharmacy 130.9; Estimated Glomerular Filt Rate > 60; Glucose Random 103 mg/dL (60-115); Lipase 16 U/L (8-78); Magnesium 1.8 mg/dL (1.6-2.6); Potassium 3.8 mmol/L (3.3-5.1); Sodium 138 mmol/L (135-145); Total Protein 6.8 g/dL (6.5-8.0)
--- NOTE | 2024-01-07 07:36 | PC.NURSE ---
pt reports that he last took his eliquis Monday morning, per pt he is supposed to take it BID but he did not take it last night or this morning
[2024-01-07] MEDS: iohexoL 350 MG/ML 75 ML INFUS..BTL 80 ML IV (08:12)
[2024-01-07] MEDS: ondansetron HCL 4 MG/2 ML VIAL IVPUSH ×2 (08:26→11:50)
[2024-01-07] MEDS: Pantoprazole Sodium 40 MG/10 ML VIAL IVPUSH (08:26)
[2024-01-07] MEDS: Morphine Sulfate 4 MG/ML CARTRIDGE IVPUSH (08:26)
[2024-01-07] MEDS: iohexoL 350 MG/ML 100 ML INFUS..BTL IV (08:36)
[2024-01-07] MEDS: hydrALAZINE HCl 20 MG/ML VIAL 10 MG IVPUSH (11:15)
[2024-01-07 12:11] LABS: MANUAL DIFF FLAG NO
[2024-01-07 12:13] LABS: Basophils Percent Auto 0.4 % (0-2); Eosinophils Percent Auto 0.4 % (0-4); Hematocrit 33.6 % (42.0-52.0); Hemoglobin 11.2 g/dl (14.0-18.0); Imm Gran Abs Auto 0.03 X10*3/uL (0.00-0.03); Imm Gran Pct Auto 0.3 % (0.0-0.4); Lymphocytes Absolute Auto 2.2 X10*3/uL (1.2-4.9); Lymphocytes Percent Auto 20.8 % (20-40); Mean Corpuscular HGB Conc 33.3 g/dl (31.0-36.0); Mean Corpuscular Hemoglobin 28.3 pg (27.0-33.0); Mean Corpuscular Volume 84.8 fL (80.0-98.0); Mean Platelet Volume 11.7 fL (9.4-12.4); Monocytes Absolute Auto 0.6 X10*3/uL (0.1-1.2); Monocytes Percent Auto 5.6 % (2-11); Neutrophils Absolute Auto 7.8 x10*3/uL (2.0-8.3); Neutrophils Percent Auto 72.5 % (45-73); Platelet Count 235 X10*3/uL (160-400); Red Blood Count 3.96 X10*6/uL (4.60-5.80); Red Cell Distribution Width 14.4 % (11.0-16.0); White Blood Count 10.8 X10*3/uL (4.8-10.8)
== END 2024-01-07 12:24 | disposition short-term general hospital (02) ==
PROVIDERS: Emergency Medicine; Emergency Provider Nurse Practitioner Family
DX: K92.2 Gastrointestinal hemorrhage, unspecified (principal); K92.1 Melena; R11.2 Nausea with vomiting, unspecified; I11.0 Hypertensive heart disease with heart failure; I50.30 Unspecified diastolic (congestive) heart failure; I48.91 Unspecified atrial fibrillation; Z79.01 Long term (current) use of anticoagulants; Z79.899 Other long term (current) drug therapy; Z95.0 Presence of cardiac pacemaker
CPT/HCPCS: 36415; 74178; 80053; 82272; 83605; 83690; 83735; 85025; 85610; 86850; 86900; 86901; 96361; 96374; 96375; 96376; 99285; C9113; J0360; J2270; J2405; Q9967

== ENCOUNTER → 2024-02-02 23:59 | Outpatient (BNV) | payer OTHER, SELFPAY ==
--- NOTE | 2024-02-07 20:45 | A.OFFVIS_ITS ---
Intake Visit Reasons: REmote HF monitoring - [employer] Allergies No Known Allergies Allergy (Verified 01/07/24 06:40) [facility] Medical History History of cardioversion FARHEEN on CPAP Alcohol abuse HTN (hypertension) (HFpEF) heart failure with preserved ejection fraction Atrial fibrillation Surgical History Status post ORIF of fracture of ankle S/P hip replacement Family History Mother HTN (hypertension) Diabetes mellitus Father Diabetes mellitus HTN (hypertension) Social History Household Members: Family Household Members Other:: Girlfriend and daughter Housing: Apartment Are you a primary home care administrator to a significant other at home: No Do you presently have visiting nurse or other home services: No Alcohol intake: former Patient Tobacco Use Status: Never used Tobacco e-Cigarette/Vaping Use: Never Used Second Hand Smoke Exposure: No Substance Use Type: Marijuana Advance Directives Date on File: 01/25/21 service: No Current occupational status: retired Cognitive needs: No Hearing needs: No Vision needs: No Office Procedures Cardiac Device Check Cardiac Device Check Details: Date of service- 02/02/2024; based on impedance data and physiological variables, there is no evidence of worsening congestive heart failure. [id number] Cardiac Device Interrogation, cardio physiologic monitor Procedure code (CPT) selection complete Assessment & Plan Assessment & Plan (1) NICM (nonischemic cardiomyopathy): Code(s): I42.8 - Other cardiomyopathies Category: Medical Plan x Coding Level of Care Code Procedure Only Diagnoses NICM (nonischemic cardiomyopathy) I42.8 CPT Codes Cardiac Device Check - Cardiac Device 15: [id number] Cardiac Device Interrogation, cardio physiologic monitor ([id number])
== END ==
PROVIDERS: Visit Provider Internal Medicine
DX: I42.8 Other cardiomyopathies (principal); Z95.810 Presence of automatic (implantable) cardiac defibrillator
CPT/HCPCS: 93297

== ENCOUNTER → 2024-02-02 23:59 | Outpatient (BNV) | payer OTHER, SELFPAY ==
--- NOTE | 2024-02-10 14:14 | MHC.OFFVIS ---
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 Allergies No Known Allergies Allergy (Verified 01/07/24 06:40) [facility] Medical History History of cardioversion FARHEEN on CPAP Alcohol abuse HTN (hypertension) (HFpEF) heart failure with preserved ejection fraction Atrial fibrillation Surgical History Status post ORIF of fracture of ankle S/P hip replacement Family History Mother HTN (hypertension) Diabetes mellitus Father Diabetes mellitus HTN (hypertension) Social History Household Members: Family Household Members Other:: Girlfriend and daughter Housing: Apartment Are you a primary senior caregiver to a significant other at home: No Do you presently have visiting nurse or other home services: No Alcohol intake: former Patient Tobacco Use Status: Never used Tobacco e-Cigarette/Vaping Use: Never Used Second Hand Smoke Exposure: No Substance Use Type: Marijuana Advance Directives Date on File: 01/25/21 service: No Current occupational status: retired Cognitive needs: No Hearing needs: No Vision needs: No Office Procedures Cardiac Device Check Cardiac Device Check Details: Date of service 02/02/2024; Battery life >13 years; normal lead parameters; no treated VT/VF; time in AF 0.7%; V pacing 26% ; normal ICD function. [id number] Cardiac Interrogation, implant defibrillator w/interim Procedure code (CPT) selection complete Assessment & Plan Assessment & Plan (1) NICM (nonischemic cardiomyopathy): Code(s): I42.8 - Other cardiomyopathies Category: Medical (2) Ventricular tachycardia: Code(s): I47.20 - Ventricular tachycardia, unspecified Category: Medical (3) Atrial fibrillation: Code(s): I48.91 - Unspecified atrial fibrillation Category: Medical Plan x Coding Level of Care Code Procedure Only Diagnoses NICM (nonischemic cardiomyopathy) I42.8 Ventricular tachycardia I47.20 Atrial fibrillation I48.91 CPT Codes Cardiac Device Check - Cardiac Device 13: [id number] Cardiac Interrogation, implant defibrillator w/interim ([id number])
== END ==
PROVIDERS: Visit Provider Internal Medicine
DX: I42.8 Other cardiomyopathies (principal); I47.20 Ventricular tachycardia, unspecified; I48.91 Unspecified atrial fibrillation; Z95.810 Presence of automatic (implantable) cardiac defibrillator
CPT/HCPCS: 93295

== ENCOUNTER 2024-02-12 08:52 | Outpatient (AMB) | payer OTHER, SELFPAY ==
[2024-02-12 08:54] VITALS: BP 130/62; PULSE 62; BMI 33.1
--- NOTE | 2024-02-12 08:54 | MHC.OFFVIS ---
Vital Signs 02/12/24 08:54 Height 6 ft 3 in Weight 264 lb 8.875 oz BMI 33.1 BP 130/62 Blood Pressure Location Lt brachial Position Sitting Pulse 62 Pulse Source Monitor Intake Visit Reasons: 3 mth f/up Allergies No Known Allergies Allergy (Verified 01/07/24 06:40) Medication List - Last Reconciled 02/12/24 by Fabricio Chaudhary MD amiodarone 200 mg PO DAILY apixaban (Eliquis) 5 mg PO BID 90 days blood pressure monitor (Blood Pressure Kit) As directed lisinopril 20 mg PO DAILY metoprolol succinate ER 200 mg PO DAILY HPI Comments Details: Nitesh returns for follow-up regarding atrial fibrillation and cardiomyopathy. Complicated history. History of atrial fibrillation and prior cardioversions. He was maintained on flecainide. In 2022, he was in [place] during camping for the summer time. At that time, it seems he was drinking a lot, has had several beers. Following that, presyncopal type symptoms leading to emergent medical care. Apparently, he was in atrial fibrillation with rapid rate that degenerated into ventricular tachycardia type rhythm. That required emergent cardioversion. Eventually, admitted to local hospital where he underwent cardiac catheterization as well as ICD placement. Then in October of 2023, he was admitted to [email or web address] for GI bleed. Then 1 further admission to [facility] [[email or web address] again in December also for GI bleed. Unclear what was done. It seems he was briefly off anticoagulation but back on it. He used to drink a lot but he states he has not done that recently. [facility] Medical History History of cardioversion FARHEEN on CPAP Alcohol abuse HTN (hypertension) (HFpEF) heart failure with preserved ejection fraction Atrial fibrillation Surgical History Status post ORIF of fracture of ankle S/P hip replacement Family History Mother HTN (hypertension) Diabetes mellitus Father Diabetes mellitus HTN (hypertension) Social History Household Members: Family Household Members Other:: Girlfriend and daughter Housing: Apartment Are you a primary inspector health care facilities to a significant other at home: No Do you presently have visiting nurse or other home services: No Alcohol intake: former Patient Tobacco Use Status: Never used Tobacco e-Cigarette/Vaping Use: Never Used Second Hand Smoke Exposure: No Substance Use Type: Marijuana Advance Directives Date on File: 01/25/21 service: No Current occupational status: retired Cognitive needs: No Hearing needs: No Vision needs: No Review of Systems Const Denies weakness ENT Denies dizziness Card Denies chest pain, Denies chest pain with activity, Denies syncope, Denies rapid heart rate, Denies pedal edema, Denies edema, Denies leg edema, Denies lightheadedness, Denies palpitations, Denies dyspnea, Denies dyspnea on exertion and Denies orthopnea Resp Denies cough, Denies dyspnea and Denies dyspnea on exertion GI Denies hematochezia and Denies change in stool character Musc Denies abnormal gait, Denies muscle cramps, Denies muscle weakness, Denies numbness, Denies radiating pain into limb and Denies tingling Neuro Denies abnormal gait, Denies dizziness, Denies syncope, Denies numbness, Denies tingling and Denies weakness Endo Denies palpitations Physical Exam Vital Signs: Last Vital Signs Pulse 62 02/12/24 08:54 BP 130/62 02/12/24 08:54 BMI result Body Mass Index 33.1 Const General: comfortable and no acute distress Orientation/consciousness: patient oriented x3 HEENT Other: Unremarkable Head: Yes normal to inspection Neck Neck: Yes normal visual inspection Chest Chest palpation & inspection: normal inspection of the chest Resp Auscultation: clear to auscultation bilaterally Cardio Palpation: normal PMI Heart sounds: S1 normal heart sound present, S2 normal heart sound present, no gallops, no murmurs and no rubs GI Palpation (GI): Soft to palpation Back/Spine/Pelvis Other: unremarkable Skin General skin exam: no rashes or lesions noted Neuro General: patient oriented x3 Extrem General: Yes normal to inspection Psych Mental Status: mental status grossly normal Office Procedures EKG Details: EKG with ventricular paced rhythm. Suspected retrograde P wave; overall rate 62/Min. [id number], Complete Assessment & Plan Assessment & Plan (1) PAF (paroxysmal atrial fibrillation): Code(s): I48.0 - Paroxysmal atrial fibrillation Category: Medical Plan: In the past, he was on flecainide. Currently, on amiodarone. Also on beta-blockers. On Eliquis. Will need to get the EP consultation note from Dr. Wheeler. (2) NICM (nonischemic cardiomyopathy): Code(s): I42.8 - Other cardiomyopathies Category: Medical Plan: In the past, suspected tachycardia induced cardiomyopathy. Then recovered EF. Per [place] records, apparently apical akinesis. LVEF was 64%. Cardiac catheterization 02/2023 with normal coronary arteries. Cardiac MRI with LVEF of 55%. No wall motion abnormalities. Subendocardial delayed enhancement in basal to mid anterolateral segments suggesting fibrosis from possible prior myocarditis. Other findings suggestive of diffuse myocardial fibrosis. Clinically, no congestive heart failure. (3) Ventricular tachycardia: Code(s): I47.20 - Ventricular tachycardia, unspecified Category: Medical Plan: Per [place] records, it seems he was in atrial fibrillation with very rapid rate and then started having QRS widening. Hence not clear if it is just atrial fibrillation or truly VT. Any case, he is back to normal sinus rhythm and has not had any rhythm issues with ICD monitoring. For the time being, he is on amiodarone. Last TSH from July is normal. (4) Alcohol abuse: Code(s): F10.10 - Alcohol abuse, uncomplicated Category: Social Hx Plan: Nothing recent per patient. (5) Morbid obesity: Code(s): E66.01 - Morbid (severe) obesity due to excess calories Category: Medical Plan: He has managed to lose about 40 lb or so in weight. Continue to lose. (6) FARHEEN on CPAP: Code(s): G47.33 - Obstructive sleep apnea (adult) (pediatric); Z99.89 - Dependence on other enabling machines and devices Category: Medical Plan: Continue CPAP. Plan Requested EP consult note as well as ass records. Coding Level of Care Code Est Pt Level 4 (40442) Diagnoses PAF (paroxysmal atrial fibrillation) I48.0 NICM (nonischemic cardiomyopathy) I42.8 Ventricular tachycardia I47.20 Alcohol abuse F10.10 Morbid obesity E66.01 FARHEEN on CPAP G47.33; Z99.89 CPT Codes EKG - CPT: [id number], Complete ([id number])
== END 2024-02-12 09:17 | disposition home or self-care (01) ==
PROVIDERS: PCP Nurse Practitioner Family; Visit Provider Internal Medicine
DX: I48.0 Paroxysmal atrial fibrillation (principal); I42.8 Other cardiomyopathies; I47.20 Ventricular tachycardia, unspecified; F10.10 Alcohol abuse, uncomplicated; E66.01 Morbid (severe) obesity due to excess calories; G47.33 Obstructive sleep apnea (adult) (pediatric); Z99.89 Dependence on other enabling machines and devices
CPT/HCPCS: 93010; 99214

== ENCOUNTER → 2024-02-12 08:52 | Outpatient (BNVA) | payer OTHER, SELFPAY | PROVIDERS: PCP Nurse Practitioner Family; Visit Provider Internal Medicine | DX: I48.0 Paroxysmal atrial fibrillation (principal); I42.8 Other cardiomyopathies; I47.20 Ventricular tachycardia, unspecified; E66.01 Morbid (severe) obesity due to excess calories; G47.33 Obstructive sleep apnea (adult) (pediatric); Z99.89 Dependence on other enabling machines and devices | CPT/HCPCS: 93005; 99212 ==

== ENCOUNTER 2024-02-15 08:12 | Outpatient (AMB) | payer OTHER, SELFPAY ==
--- NOTE | 2024-02-15 08:15 | A.OFFPC_ITS ---
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: No Was dental information given to patient?: Patient has dentist 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 GI: He went to the ER in December for vague upper abdominal pain, blood in stool and vomit and at that point was transferred to [facility] for for emergent endoscopy. On review of his medical records, he was evaluated in this emergency department 10/14/2023 where he was found to have a large right upper quadrant abdominal hematoma with active bleeding from unknown source, he was given Kcentra and was transferred to [facility] where he underwent surgical procedure per patient. -He states when he went to [facility] they di d a double endoscopy and he states that they told him he had nothing besides polyps. He states he was told to go back to for a repeat colonoscopy because he does not think that they removed the polyp. 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 -He states his stomach is feeling a lot better. He no longer has pain. -reports he does not currently drink eto h, avoiding NSAIDs. He started on Metamucil and that has helped him with his bowel movements. CV: Blood pressure today in the office is 124/66. He is currently on amiodarone 200 mg, lisinopril 20 mg, metoprolol 200 mg daily. He is on Eliquis. He is following with Cardiology and EP. Last saw Cardiology on Monday, 02/11. pulm: hx of farheen on cpap. follows with pulm for this and reports compliance. HM: Colonoscopy- December 2023- at [facility]- he is going to get reports. psa-overdue [facility] Medical History (Updated 02/15/24 @ 09:19 by Maryellen Contreras PA-C) History of cardioversion FARHEEN on CPAP Alcohol abuse HTN (hypertension) (HFpEF) heart failure with preserved ejection fraction Surgical History Status post ORIF of fracture of ankle S/P hip replacement Family History Mother HTN (hypertension) Diabetes mellitus Father Diabetes mellitus HTN (hypertension) Social History Household Members: Family Household Members Other:: Girlfriend and daughter Housing: Apartment Are you a primary day care aide to a significant other at home: No Do you presently have visiting nurse or other home services: No Alcohol intake: former Patient Tobacco Use Status: Never used Tobacco e-Cigarette/Vaping Use: Never Used Second Hand Smoke Exposure: No Substance Use Type: Marijuana Advance Directives Date on File: 01/25/21 service: No Current occupational status: retired Cognitive needs: No Hearing needs: No Vision needs: No Questionnaire PHQ-9 Over the last 2 weeks, how often have you been bothered by any of the following problems? 1. Little interest or pleasure in doing things: not at all 2. Feeling down, depressed, or hopeless: not at all 3. Trouble falling or staying asleep, or sleeping too much: not at all 4. Feeling tired or having little energy: not at all 5. Poor appetite or overeating: not at all 6. Feeling bad about yourself - or that you are a failure or have let yourself or your family down: not at all 7. Trouble concentrating on things, such as reading the newspaper or watching television: not at all 8. Moving or speaking so slowly that other people could have noticed. Or the opposite - being so fidgety or restless that you have been moving around a lot more than usual: not at all 9. Thoughts that you would be better off or of hurting yourself in some way : not at all Total score: 0 Depression Screening Interpretation: Negative Depression Screening Done: Yes 47520 - PHQ-9 Billing: Yes Source: Developed by Drs. Ace Beckwith, Evelyne Ramirez, Carlos Gracia and colleagues, with an educational yaz from [employer]. Thrive Questionnaire Date Thrive assessed: 05/12/23 I am a: Patient What is your living situation today?: I have a steady place to live Within the past 12 months, did the food you bought not last and you didn't have the money to get more?: Never true Within the past 12 months, did you worry whether your food would run out before you got money to buy more?: Never true Do you have trouble paying for medicines?: No Do you have trouble getting transportation to medical appointments?: No Do you have trouble paying your heating and electricity bill?: No Do you have trouble taking care of your child, family member or friend?: No Do you have trouble with day-to-day activities such as bathing, preparing meals, shopping, managing finances, etc.?: No Are you currently unemployed and looking for a job?: No Are you interested in more education?: No Please select the resources that you would like help with: None Currently or been in a relationship where the following occur: No concerns reported THRIVE Score: 0 DIEUDONNE-7 AMB Questionnaire DIEUDONNE-7 Date DIEUDONNE - 7 assessed: 05/12/23 Feeling nervous, anxious, or on edge: 0 = Not at all Not being able to stop or control worryin = Not at all Worrying too much about different things: 0 = Not at all Trouble relaxin = Not at all Being so restless that it is hard to sit still: 0 = Not at all Becoming easily annoyed or irritable: 0 = Not at all Feeling afraid as if something awful might happen: 0 = Not at all Total DIEUDONNE-7 score (0-4 normal; 5-9 mild; 10-14 moderate; 15-21 severe): 0 Source: Developed by Drs. Ace Beckwith, Evelyne Ramirez, Carlos Garcia and colleagues, with an educational yaz from [employer]. DIEUDONNE-7 Assessment Billing DIEUDONNE-7 Assessment Tool: DIEUDONNE-7 Assessment 47475 Physical exam (Primary Care) Vital Signs: Last Vital Signs Pulse 72 02/15/24 08:18 BP 124/66 02/15/24 08:18 Pulse Ox 99 02/15/24 08:18 Oxygen Delivery Method Room Air 02/15/24 08:18 BMI result Body Mass Index 33.7 BMI Assessment/Plan discussion: High BMI High, discussed plan: lifestyle, weight reduction and dietary Tobacco/Smoking Status: Tobacco use Status Tobacco use date assessed 02/15/24 02/15/24 08:23 Patient Tobacco Use Status Never used Tobacco 02/15/24 08:16 Tobacco use type 02/28/23 13:31 e-Cigarette/Vaping Use Never Used 02/15/24 08:16 Depression Screening Interpretation: Negative Thrive Assessment: Date of Thrive Assessment Date Thrive assessed 05/12/23 02/15/24 08:16 Currently or been in a relationship where the following occur: No concerns reported Const Orientation/consciousness: patient oriented x3 HENMT Ears: hearing grossly normal bilaterally Neck Thyroid: Thyroid normal Lymphatic: no lymphadenopathy noted Resp Auscultation: clear to auscultation bilaterally Cardio Rate: regular rate Rhythm: regular rhythm Heart sounds: S1 normal heart sound present and S2 normal heart sound present GI Inspection: Yes normal to inspection Palpation (GI): Soft to palpation and Other GI palpation findings present (nontender, no cva tenderness) Auscultation: normoactive bowel sounds Skin General skin exam: no rashes or lesions noted Neuro General: patient oriented x3, gait normal and no focal motor deficits Results Reviewed Results Reviewed: Laboratory Tests 07/24/23 01/07/24 01/07/24 10:56 06:57 12:07 WBC 10.8 RBC 3.96 L Hgb 11.2 L Hct 33.6 L Plt Count 235 Sodium 138 Potassium 3.8 Chloride 105 Carbon Dioxide 26 Anion Gap 11 L BUN 13 Creatinine 0.88 Estim Creat Clear Calc 130.9 Estimated GFR > 60 Random Glucose 103 Calcium 9.1 D Magnesium 1.8 AST 24 ALT 20 Alkaline Phosphatase 75 Total Protein 6.8 Albumin 3.7 Triglycerides 96 Cholesterol 180 LDL Cholesterol, Calc 124 H HDL Cholesterol [address] from 12/2023: CT/CT gi bleed abd pel wo/w IVcon IMPRESSION: No evidence of active GI bleeding. Abnormal appearance of the second portion of the duodenum which demonstrates heterogeneous wall thickening and stranding of the adjacent fat. Differential would include ulcer, duodenitis and mass. Correlation with endoscopy recommended. New embolization coils in the GDA. Dictated By: Vivi Mueller MD Assessment and Plan Assessment & Plan (1) HTN (hypertension): Code(s): I10 - Essential (primary) hypertension Plan: WNL. Continue current regimen (2) PAF (paroxysmal atrial fibrillation): Code(s): I48.0 - Paroxysmal atrial fibrillation Plan: On AC. Follows with Cardiology. Rate controlled with metoprolol and amiodarone. (3) Morbid obesity: Code(s): E66.01 - Morbid (severe) obesity due to excess calories Plan: Advised him to reduce his carbohydrate and sugar intake. I have encouraged him to increase his exercise tolerance with more walking. (4) FARHEEN on CPAP: Code(s): G47.33 - Obstructive sleep apnea (adult) (pediatric); Z99.89 - Dependence on other enabling machines and devices Plan: Falling asleep medicine (5) Gastrointestinal bleeding: Code(s): K92.2 - Gastrointestinal hemorrhage, unspecified Qualifiers: GI bleed type/associated pathology: unspecified gastrointestinal hemorrhage type Qualified Code(s): K92.2 - Gastrointestinal hemorrhage, unspecified Plan: Currently resolved. He has been referred to GI. He knows to avoid alcohol. (6) Colon polyps: Code(s): K63.5 - Polyp of colon Qualifiers: Colon location: unspecified part of colon Inflammatory colon polyp complication status: unspecified Plan: Has been referred to GI for management. Advised him to get his medical records from [facility] and the colonoscopy report. Orders: Orders Prostate Specific Antigen Scr Today I10 - Essential (primary) hypertension, I48.0 - Paroxysmal atrial fibrillation, Z76.89 - Persons encountering health services in other specified circumstances Comprehensive [place]. Panel Fast Today I10 - Essential (primary) hypertension, I48.0 - Paroxysmal atrial fibrillation, Z76.89 - Persons encountering health services in other specified circumstances Lipid Panel Today I10 - Essential (primary) hypertension, I48.0 - Paroxysmal atrial fibrillation, Z76.89 - Persons encountering health services in other specified circumstances Complete Blood Count Auto Diff Today I10 - Essential (primary) hypertension, I48.0 - Paroxysmal atrial fibrillation, Z76.89 - Persons encountering health services in other specified circumstances Coding Level of Care Code Est Pt Level 4 (78702) Complex EM visit Add On G2211 Diagnoses HTN (hypertension) I10 PAF (paroxysmal atrial fibrillation) I48.0 Morbid obesity E66.01 FARHEEN on CPAP G47.33; Z99.89 Gastrointestinal hemorrhage, unspecified gastrointestinal hemorrhage type K92.2 GI bleed type/associated pathology: unspecified gastrointestinal hemorrhage type Colon polyps K63.5 Colon location: unspecified part of colon Inflammatory colon polyp complication status: unspecified Additional Codes DIEUDONNE-7 Assessment Billing - DIEUDONNE-7 Assessment Tool: DIEUDONNE-7 Assessment [id number] ([id number])
[2024-02-15 08:18] VITALS: BP 124/66; PULSE 72; O2SAT 99; BMI 33.7
== END 2024-02-15 09:20 | disposition home or self-care (01) ==
PROVIDERS: PCP Nurse Practitioner Family; Visit Provider Physician Assistant
DX: I10 Essential (primary) hypertension (principal); I48.0 Paroxysmal atrial fibrillation; G47.33 Obstructive sleep apnea (adult) (pediatric); Z99.89 Dependence on other enabling machines and devices; K92.2 Gastrointestinal hemorrhage, unspecified; E66.01 Morbid (severe) obesity due to excess calories; Z68.33 Body mass index [BMI] 33.0-33.9, adult; K63.5 Polyp of colon
CPT/HCPCS: 99214; G2211

== ENCOUNTER 2024-02-23 18:25 | Inpatient (IN) | payer OTHER, SELFPAY ==
--- NOTE | ~2024-02-23 | FL_ITS ---
EXAMINATION: FL SMALL BOWEL SERIES CLINICAL INFORMATION: Abdominal pain. Recent upper GI bleed status post embolization of the gastric duodenal artery. COMPARISON: CT scan February 23, 2024 TECHNIQUE: Following a barrel rib matting machine operator image of the abdomen, contrast was administered orally, and interval abdominal radiographs were performed to assess for contrast progression through the small bowel. FINDINGS: Junior Data Analyst image of the abdomen demonstrates a normal bowel gas pattern. Embolization coils are present in the mid abdomen. Left total hip replacement noted. Severe degenerative arthritis in the right hip joint present. AICD leads noted within the right ventricle. There is normal transit time of contrast material through the small bowel, with contrast present in the colon by 1 hour. Small bowel loops are of normal caliber throughout the abdomen and pelvis. The jejunal and ileal fold patterns are normal, without evidence of abnormal thickening. No fixed regions of luminal narrowing are seen to suggest stricturing. The terminal ileum demonstrates a normal appearance. There is a large amount of retained contrast in the stomach that likely represents delayed emptying due to the duodenal edema seen on prior CT imaging. FL/FL small bowel follow through IMPRESSION: 1. Normal small bowel transit time. Normal-appearing small bowel including the jejunum and ileum. Contrast is observed in the colon after one hour. 2. A large amount contrast remains in the stomach. This likely represents delayed emptying due to duodenal edema as seen on recent CT imaging. Cannot exclude a partial gastric outlet obstruction. 3. Status post embolization of the gastroduodenal artery. This procedure was performed by Adam Kincaid PA-C, and supervised by Dr. Ritchie
--- NOTE | ~2024-02-23 | CT_ITS ---
EXAMINATION: CT ABDOMEN WITHOUT AND WITH CONTRAST, GI bleed. CLINICAL INFORMATION: Abdominal pain. History of upper GI bleed. COMPARISON: CT angiogram the January 07, 2024. CT abdomen pelvis October 14, 2023 TECHNIQUE: Contiguous axial thin section helical images of the abdomen were performed before and immediately after the administration of 85 mL of Omnipaque 350 intravenous contrast. Axial images were then obtained through the abdomen and pelvis 2 minutes after IV injection, delayed sequence. The data set was reformatted in the coronal and sagittal planes and reviewed on an independent workstation. This CT examination was performed using dose optimization techniques as appropriate, variously including the following: *Automated exposure control *Adjustment of mA and/or kV according to patient size (this includes techniques or standardized protocols for targeted exams where dose is matched to indication/reason for exam; i.e. extremities or head) *Use of iterative reconstruction technique DLP: 2190 mGy-cm FINDINGS: LUNG BASES: Normal aeration of lung bases. No pleural effusion. Heart size enlarged. Pacemaker leads within the heart. LIVER, GALLBLADDER, AND BILIARY TREE: No focal liver lesion or intrahepatic bile duct dilatation. PANCREAS: Head of the pancreas is not well seen due to streak artifact from embolization material at the root of the mesentery as well as the edema in the mesentery around this region. The body and tail the pancreas are normal. SPLEEN: Unremarkable ADRENAL GLANDS AND KIDNEYS: Stable low attenuating left adrenal nodule. Density measurement 8 Hounsfield units consistent with adrenal adenoma. No further follow-up imaging needed. BOWEL LOOPS: No pooling of contrast within the lumen of bowel loops to indicate a site of acute gastrointestinal hemorrhage. There is diffuse nonspecific thickening of the wall of the duodenum from the second through fourth portion. No dilatation of the stomach, no gastric outlet obstruction. The remainder the small bowel loops are normal. Scattered diverticula of the colon without evidence of diverticulitis. Moderate volume of stool in the colon. The appendix is normal. MESENTERY: Embolization coils in the upper central right mesentery causing streak artifact. There is edema in the mesentery in this region. This is new since CAT scan January 07, 2024. This involves mesenteric fat around the duodenum and at the root of the mesentery. Small volume of free fluid in the cul-de-sac with density measurement of 0 Hounsfield units, simple fluid. No abscess. No free air. LYMPH NODES: Normal. VASCULAR: Small volume of scattered vascular wall calcifications of aorta and iliac arteries. There is no aneurysm. BONES: Multilevel degenerative spondylosis spine. CT/CT gi bleed abd pel wo/w IVcon IMPRESSION: 1. Embolization coils in the upper right mesentery. 2. Thickening of the wall of the duodenum. There is edema in the mesentery around the duodenum and at the root of the mesentery. This is new since CAT scan January 07, 2024. Given patient history and prior site of hemorrhage with embolization coils in this region this may be site of current gastrointestinal hemorrhage. There is however no pooling of contrast in the bowel lumen is evident to indicate acute hemorrhage. 3. Small volume of free fluid in the cul-de-sac. 4. Stable left adrenal adenoma. No further follow-up imaging needed. Fleischner guidelines were followed.
[2024-02-23 19:06] VITALS: BP 162/101; PULSE 64; RESP 18; TEMP 36.4; O2SAT 96; BMI 33.0
[2024-02-23 20:11] LABS: MANUAL DIFF FLAG NO
[2024-02-23 20:13] LABS: Basophils Percent Auto 0.3 % (0-2); Eosinophils Absolute Auto 0.1 X10*3/uL (0.0-0.4); Eosinophils Percent Auto 0.6 % (0-4); Hematocrit 26.9 % (42.0-52.0); Hemoglobin 8.1 g/dl (14.0-18.0); Imm Gran Abs Auto 0.03 X10*3/uL (0.00-0.03); Imm Gran Pct Auto 0.3 % (0.0-0.4); Lymphocytes Absolute Auto 1.2 X10*3/uL (1.2-4.9); Lymphocytes Percent Auto 13.6 % (20-40); Mean Corpuscular HGB Conc 30.1 g/dl (31.0-36.0); Mean Corpuscular Hemoglobin 24.3 pg (27.0-33.0); Mean Corpuscular Volume 80.5 fL (80.0-98.0); Monocytes Absolute Auto 0.7 X10*3/uL (0.1-1.2); Monocytes Percent Auto 7.5 % (2-11); Neutrophils Percent Auto 77.7 % (45-73); Platelet Count 222 X10*3/uL (160-400); Red Blood Count 3.34 X10*6/uL (4.60-5.80); Red Cell Distribution Width 15.8 % (11.0-16.0)
[2024-02-23 20:26] LABS: INTERNATIONAL NORM RATIO 1.3 (0.9-1.1); Prothrombin Time 16.3 SEC (11.1-13.3)
[2024-02-23 20:28] LABS: Alanine Aminotransferase 6 U/L (0-40); Albumin Level 3.6 g/dL (3.5-5.0); Alkaline Phosphatase 80 U/L (39-117); Anion Gap 12 (12-20); Aspartate Amino Transferase 16 U/L (5-37); Bilirubin Direct 0.4 mg/dL (0.0-0.5); Bilirubin Total 1.1 mg/dL (0.0-1.0); Blood Urea Nitrogen 9 mg/dL (9-16); Calcium 9.4 mg/dL (8.4-10.2); Carbon Dioxide 25 mmol/L (22-29); Chloride 106 mmol/L (96-108); Creatinine Clr Calc Pharmacy 132.1; Estimated Glomerular Filt Rate > 60; Glucose Random 100 mg/dL (60-115); Lipase 147 U/L (8-78); Potassium 4.1 mmol/L (3.3-5.1); Sodium 139 mmol/L (135-145); Total Protein 6.8 g/dL (6.5-8.0)
[2024-02-23 20:30] VITALS: BP 186/86; PULSE 56; RESP 17; TEMP 36.9; O2SAT 97
[2024-02-23] MEDS: iohexoL 350 MG/ML 100 ML INFUS..BTL IV (20:52)
[2024-02-23 21:20] LABS: Partial Thromboplastin Time 28.3 SEC (26.0-36.8)
[2024-02-23 22:11] LABS: Appearance Urine Clear; Color Urine Yellow; Glucose Urine UA Negative (Negative); Leukocyte Esterase Urine Negative (Negative); Nitrite Urine Negative (Negative); Specific Gravity - Urine >= 1.030 (1.005-1.025); UMIC TRIGGER UACC YES; Urine Blood Negative (Negative); Urine Ketones 15 mg/dL (Negative); Urine Protein 30 (1+) mg/dL (Neg-Trace)
[2024-02-23 22:16] LABS: Bacteria Urine None Seen (None Seen); Hyaline Casts Urine 0-2 /LPF (0-2); RBC Urine 0-2 /HPF (0-2); Squamous Epithelial Cell Urine 0-2 /HPF (0-2); WBC Urine 0-5 /HPF (0-5)
[2024-02-24] VITALS (10 sets, daily range): BP systolic 147–183; BP diastolic 84–102; PULSE 57–67; RESP 15–21; TEMP 36.7–37.4; O2SAT 94–99; BMI 33.0
--- NOTE | 2024-02-24 00:16 | ED_ITS ---
HPI - General Adult General Chief complaint: Abdominal Pain Stated complaint: possible internal bleeding Time Seen by Provider: 02/24/24 00:11 Source: patient History of Present Illness HPI narrative: 58-year-old male who has a history of GI bleeding status post coiling at [facility], hypertension, AFib on Eliquis, alcohol use, HFpEf, FARHEEN, presents with a 2-3 day history of abdominal pain. Patient states it is primarily in the upper abdomen but has now progressed to diffuse pain. He states it feels like previous abdominal pain when he had GI bleeding. He denies any fevers or chills. He did report several episodes of nausea and vomiting but states it was emesis and phlegm. He denies any blood or coffee grounds. He denies any hematochezia or melena. He does report approximately 5 day history of constipation. He was able to move his bowels today after some straining but only a small amount. Denies any black stools or blood. He denies any additional aspirin or NSAID use. He has had decreased p.o. intake, only tolerating water today. He had a bowl of soup yesterday. He denies any tobacco use. He smokes marijuana several times per week. He drinks alcohol only occasionally with his last drink last week. He has had a history of alcohol abuse in the past. He denies any other illicit drug abuse. Related Data Home Medications ?Medication ?Instructions ?Recorded ?Confirmed lisinopril 20 mg tablet 20 mg PO DAILY 04/10/23 02/15/24 Previous Rx's ?Medication ?Instructions ?Recorded blood pressure monitor (Blood #1 ea 04/25/23 Pressure Kit) apixaban 5 mg tablet (Eliquis) 5 mg PO BID 90 days #180 tabs 12/04/23 amiodarone 200 mg tablet 200 mg PO DAILY #90 tabs 12/26/23 metoprolol succinate 100 mg 100 mg PO DAILY #90 tabs 02/15/24 tablet,extended release 24 hr (Toprol XL) Allergies Allergy/AdvReac Type Severity Reaction Status Date / Time No Known Allergies Allergy Verified 02/23/24 19:11 Review of Systems 2 Constitutional: Constitutional: Denies chills and Denies fever(s) Cardiovascular: Cardiovascular: Denies chest pain, Denies palpitations, Denies dyspnea, Denies dyspnea on exertion and Denies orthopnea Respiratory: Respiratory: Denies cough, Denies dyspnea and Denies dyspnea on exertion Gastrointestinal: Gastrointestinal: Reports abdominal pain, Denies coffee ground emesis, Reports constipation, Denies excessive flatus, Denies loose stools, Reports nausea, Reports vomiting and Denies hematemesis Genitourinary: Genitourinary: Denies difficulty urinating, Denies dysuria and Denies urinary urgency Integumentary/Breasts: Skin/Breast: Denies rash Neurologic: Denies focal weakness Psychiatric: Psychiatric: Denies depression Endocrine: Endocrine: Denies palpitations [facility] Past Medical History Medical History (Updated 02/24/24 @ 01:00 by NICHOLAS Horan) History of cardioversion FARHEEN on CPAP Alcohol abuse HTN (hypertension) (HFpEF) heart failure with preserved ejection fraction Surgical History Status post ORIF of fracture of ankle S/P hip replacement Family History Family History Mother HTN (hypertension) Diabetes mellitus Father Diabetes mellitus HTN (hypertension) Social History Social History Household Members: Family Household Members Other:: Girlfriend and daughter Housing: Apartment Are you a primary home health care social worker to a significant other at home: No Do you presently have visiting nurse or other home services: No Alcohol intake: former Patient Tobacco Use Status: Never used Tobacco e-Cigarette/Vaping Use: Never Used Second Hand Smoke Exposure: No Substance Use Type: Marijuana Advance Directives: Yes Advance Directives on File: Yes Advance Directives Date on File: 01/25/21 Do you have a plan to hurt others: No Plan service: No Current occupational status: retired Cognitive needs: No Hearing needs: No Vision needs: No Physical Exam ED Vital Signs: Vital Signs - 24 hr 02/23/24 19:06 02/23/24 20:30 02/24/24 00:38 Temperature 97.5 F 98.5 F 98.8 F Pulse Rate 64 56 58 Respiratory Rate 18 17 17 Blood Pressure 162/101 H 186/86 H 183/101 H Pulse Oximetry 96 97 94 Oxygen Delivery Method Room Air Room Air Room Air BMI result Body Mass Index 33.0 Const General: alert and awake Resp Auscultation: clear to auscultation bilaterally Cardio Rate: regular rate Rhythm: regular rhythm GI Other: Abdomen is soft. There is moderate tenderness to the right upper quadrant and epigastric region. There is no peritoneal signs. Mild diffuse tenderness otherwise throughout. Rectal exam does not reveal any external hemorrhoids. No rectal tone. Small amount of rectal secretions but no obvious stool. Hemoccult testing performed. Course Course Course Narrative: February 24, 2024, 1:[address] Chauhan will accept the patient to be brought in to the hospital for further evaluation and management. Hold on blood transfusion and GI notification at this time. Medications Administered Discontinued Medications Generic Name Dose Route Start Last Admin Trade Name Freq PRN Reason Stop Dose Admin Iohexol 100 ml 02/23/24 20:50 02/23/24 20:52 Iohexol 350 Mg/Ml 100 Ml Infus..Btl IV 02/23/24 20:51 85 ml ONCE ONE Administration Morphine Sulfate 4 mg 02/24/24 00:41 02/24/24 00:48 Morphine Sulfate 4 Mg/Ml Cartridge IVPUSH 02/24/24 00:42 4 mg ONCE ONE Administration Protocol Ondansetron HCl 4 mg 02/24/24 00:41 02/24/24 00:48 Ondansetron Hcl 4 Mg/2 Ml Vial IVPUSH 02/24/24 00:42 4 mg ONCE ONE Administration Pantoprazole Sodium 40 mg 02/24/24 00:41 02/24/24 00:48 Pantoprazole Sodium 40 Mg/10 Ml Vial IVPUSH 02/24/24 00:42 40 mg ONCE ONE Administration Medical Decision Making Medical Decision Making MDM Narrative: 58-year-old male with a history of GI bleeding status post coiling, FARHEEN, AFib on Eliquis, HFpEF, hypertension, alcohol use, presents with a 3 day history of abdominal pain consistent with previous episodes of GI bleeding. He is hemodynamically stable. He has not had any hematemesis, hematochezia, melena or coffee-ground emesis. Labs returned demonstrating decreased hemoglobin of 8.1 compared to 11.2 along with a hematocrit of 26.9 which is decreased from 30/3 0.6, both of which are from January 07 2024. Patient is currently asymptomatic, no chest pain or shortness of breath. No lightheadedness or dizziness. However still consideration for blood transfusion. Hemoccult testing is negative. However no overt stool able to be collected, small amount of rectal secretions only. CT findings are concerning for slow GI bleeding along with inflammatory changes along the duodenum and root of mesentery. Morphine for analgesia, Zofran for any nausea that may develop, Protonix IV. Given the constellation of findings as well as patient's history, he may benefit from being brought into the hospital for further evaluation and management. No indication for emergent transfer at this time. Discussed with Dr. Rivera who agrees with plan. Differential Diagnosis Differential Diagnoses: The differential diagnosis associated with the presentation includes GI bleeding Anemia Metabolic abnormality Pancreatitis Admission/Observation Consideration of admission/observation: Escalation of care including admission/observation considered Consult Healthcare Provider Management of the patient was discussed with: Hospitalist Lab Data MDM Lab Attestation statement: I reviewed the patient's lab results. 02/23/24 20:04 02/23/24 20:04 Labs: Lab Results 02/23/24 02/23/24 02/24/24 Range/Units 20:04 22:03 00:33 WBC 9.0 (4.8-10.8) X10*3/uL RBC 3.34 L (4.60-5.80) X10*6/uL Hgb 8.1 L D (14.0-18.0) g/dl Hct 26.9 L (42.0-52.0) % MCV 80.5 (80.0-98.0) fL MCH 24.3 L (27.0-33.0) pg MCHC 30.1 L (31.0-36.0) g/dl RDW 15.8 (11.0-16.0) % Plt Count 222 (160-400) X10*3/uL MPV 11.0 (9.4-12.4) fL Immature Gran % (Auto) 0.3 (0.0-0.4) % Neut % (Auto) 77.7 H (45-73) % Lymph % (Auto) 13.6 L (20-40) % [place] % (Auto) 7.5 (2-11) % Eos % (Auto) 0.6 (0-4) % Baso % (Auto) 0.3 (0-2) % Lymph # (Auto) 1.2 (1.2-4.9) X10*3/uL [place] # (Auto) 0.7 (0.1-1.2) X10*3/uL Eos # (Auto) 0.1 (0.0-0.4) X10*3/uL Baso # (Auto) 0.0 (0.0-0.2) X10*3/uL Abs Immat Gran (auto) 0.03 (0.00-0.03) X10*3/uL Absolute Neuts (auto) 7.0 (2.0-8.3) x10*3/uL Absolute Nucleated RBC 0.000 (0.0-0.012) X10*3/uL Nucleated RBC % (auto) 0.0 (0.0-0.2) /100WBC PT 16.3 H D (11.1-13.3) SEC INR 1.3 H (0.9-1.1) APTT 28.3 (26.0-36.8) SEC Sodium 139 (135-145) mmol/L Potassium 4.1 (3.3-5.1) mmol/L Chloride 106 (96-108) mmol/L Carbon Dioxide 25 (22-29) mmol/L Anion Gap 12 (12-20) BUN 9 (9-16) mg/dL Creatinine 0.87 (0.5-1.4) mg/dL Estim Creat Clear Calc 132.1 Estimated GFR > 60 Random Glucose 100 (60-115) mg/dL Calcium 9.4 (8.4-10.2) mg/dL Total Bilirubin 1.1 H (0.0-1.0) mg/dL Direct Bilirubin 0.4 (0.0-0.5) mg/dL AST 16 (5-37) U/L ALT 6 (0-40) U/L Alkaline Phosphatase 80 (39-117) U/L Total Protein 6.8 (6.5-8.0) g/dL Albumin 3.6 (3.5-5.0) g/dL Lipase 147 H (8-78) U/L Urine Color Yellow Urine Appearance Clear Urine pH 7.0 (5.0-9.0) Ur Specific [place] >= 1.030 H (1.005-1.025) Urine Protein 30 (1+) H (Neg-Trace) mg/dL Urine Glucose (UA) Negative (Negative) mg/dL Urine Ketones 15 (Negative) mg/dL Urine Blood Negative (Negative) Urine Nitrite Negative (Negative) Ur Leukocyte Esterase Negative (Negative) Urine RBC 0-2 (0-2) /HPF Urine WBC 0-5 (0-5) /HPF Ur Squamous Epith Cells 0-2 (0-2) /HPF Urine Bacteria None Seen (None Seen) Hyaline Casts 0-2 (0-2) /LPF Stool Occult Blood NEGATIVE (NEGATIVE) Independent Interpretation I performed an independent interpretation of an: EKG Interpretation: Sinus at 60 beats per minute without any acute ischemic changes. QTC at 508 Radiology Impression Discussion of test interpretation with radiology: I have reviewed the radiologist's reading. Radiologist Impression: [address] [id number] [address] Scan Report Signed Patient: Nitesh Osorio MR#: [id number] : 1965 Acct:[id number] Age/Sex: 58 / M ADM Date: 02/23/24 Loc: .ED Attending Dr: Ordering Physician: Megha Swann Date of Service: 02/23/24 Procedure(s): CT gi bleed abd pel wo/w IVcon Accession Number(s): [id number] cc: Megha Swann; Lisa Heard~ EXAMINATION: CT ABDOMEN WITHOUT AND WITH CONTRAST, GI bleed. CLINICAL INFORMATION: Abdominal pain. History of upper GI bleed. COMPARISON: CT angiogram the January 07, 2024. CT abdomen pelvis October 14, 2023 TECHNIQUE: Contiguous axial thin section helical images of the abdomen were performed before and immediately after the administration of 85 mL of Omnipaque 350 intravenous contrast. Axial images were then obtained through the abdomen and pelvis 2 minutes after IV injection, delayed sequence. The data set was reformatted in the coronal and sagittal planes and reviewed on an independent workstation. This CT examination was performed using dose optimization techniques as appropriate, variously including the following: *Automated exposure control *Adjustment of mA and/or kV according to patient size (this includes techniques or standardized protocols for targeted exams where dose is matched to indication/reason for exam; i.e. extremities or head) *Use of iterative reconstruction technique DLP: 2190 mGy-cm FINDINGS: LUNG BASES: Normal aeration of lung bases. No pleural effusion. Heart size enlarged. Pacemaker leads within the heart. LIVER, GALLBLADDER, AND BILIARY TREE: No focal liver lesion or intrahepatic bile duct dilatation. PANCREAS: Head of the pancreas is not well seen due to streak artifact from embolization material at the root of the mesentery as well as the edema in the mesentery around this region. The body and tail the pancreas are normal. SPLEEN: Unremarkable ADRENAL GLANDS AND KIDNEYS: Stable low attenuating left adrenal nodule. Density measurement 8 Hounsfield units consistent with adrenal adenoma. No further follow-up imaging needed. BOWEL LOOPS: No pooling of contrast within the lumen of bowel loops to indicate a site of acute gastrointestinal hemorrhage. There is diffuse nonspecific thickening of the wall of the duodenum from the second through fourth portion. No dilatation of the stomach, no gastric outlet obstruction. The remainder the small bowel loops are normal. Scattered diverticula of the colon without evidence of diverticulitis. Moderate volume of stool in the colon. The appendix is normal. MESENTERY: Embolization coils in the upper central right mesentery causing streak artifact. There is edema in the mesentery in this region. This is new since CAT scan January 07, 2024. This involves mesenteric fat around the duodenum and at the root of the mesentery. Small volume of free fluid in the cul-de-sac with density measurement of 0 Hounsfield units, simple fluid. No abscess. No free air. LYMPH NODES: Normal. VASCULAR: Small volume of scattered vascular wall calcifications of aorta and iliac arteries. There is no aneurysm. BONES: Multilevel degenerative spondylosis spine. CT/CT gi bleed abd pel wo/w IVcon IMPRESSION: 1. Embolization coils in the upper right mesentery. 2. Thickening of the wall of the duodenum. There is edema in the mesentery around the duodenum and at the root of the mesentery. This is new since CAT scan January 07, 2024. Given patient history and prior site of hemorrhage with embolization coils in this region this may be site of current gastrointestinal hemorrhage. There is however no pooling of contrast in the bowel lumen is evident to indicate acute hemorrhage. 3. Small volume of free fluid in the cul-de-sac. 4. Stable left adrenal adenoma. No further follow-up imaging needed. Fleischner guidelines were followed. Dictated By: Fili Rosa MD Signed By: <Electronically signed by Fili Rosa MD in OV> 02/23/24 5717 DD/ 06 TD/TT: Corrections Caseworker: GONZALO External Record Review External record reviewed: Inpatient record Prescription Management I considered prescription management with: Pain Medication Chronic Conditions Patient?s care impacted by: Hypertension Discharge Plan Discharge Clinical Impression: Acute GI bleeding Abdominal pain Qualifiers: Abdominal location: upper abdomen, unspecified Qualified Code(s): R10.10 - Upper abdominal pain, unspecified Patient Disposition: Admitted As Inpatient Print Language: Israeli
[2024-02-24 00:37] LABS: OBS Int Ctl Valid YES; OBS1 NEGATIVE (NEGATIVE)
[2024-02-24] MEDS: Morphine Sulfate 4 MG/ML CARTRIDGE IVPUSH ×4 (00:48→21:30)
[2024-02-24] MEDS: ondansetron HCL 4 MG/2 ML VIAL IVPUSH ×2 (00:48→06:34)
[2024-02-24] MEDS: Pantoprazole Sodium 40 MG/10 ML VIAL IVPUSH ×3 (00:48→17:28)
--- NOTE | 2024-02-24 00:59 | ECG_ITS ---
Test Reason : ABD PAIN Blood Pressure : / mmHG Vent. Rate : 060 BPM Atrial Rate : 060 BPM P-R Int : 178 ms QRS Dur : 088 ms QT Int : 508 ms P-R-T Axes : 062 -10 033 degrees QTc Int : 508 ms Normal sinus rhythm Prolonged QT Abnormal ECG When compared with ECG of 14-OCT-2023 17:55, No significant change was found Referred By: Bc Garcia Electronically Signed By:ALEXANDRA UP MD
--- NOTE | 2024-02-24 02:38 | P.HPHOSP_ITS ---
History of Present Illness Date of Service: 02/24/24 Chief Complaint: Abdominal pain This is a 58-year-old male with pertinent history of permanent atrial fibrillation on anticoagulation, congestive heart failure with preserved ejection fraction, ventricular tachycardia status post ICD, alcohol use disorder, FARHEEN on CPAP, hypertension who presents to the emergency department for evaluation of abdominal pain. Patient states it started 3 days prior to presentation. Initially it was intermittent but progressed to being constant. Not relieved with Tylenol at home. Had 2 episodes of nonbloody emesis. Patient also having constipation and has not had a bowel movement in 3 days. No hematochezia or melena. He was admitted in October and December in 2023 at [facility] with GI bleed. No fever, chills, chest discomfort, palpitations, shortness of breath, changes in urinary habits. No concern for alcohol withdrawal as per the patient. In the emergency department, hemoglobin found to be low at 8 and imaging concerning for GI bleed. Review of Systems 2 Constitutional: Constitutional: Reports fatigue Cardiovascular: Cardiovascular: Reports no additional cardiovascular complaints Respiratory: Respiratory: Reports no additional respiratory complaints Gastrointestinal: Gastrointestinal: Reports abdominal pain and Reports vomiting Genitourinary: Genitourinary: Reports no additional male genitourinary complaints Endocrine: Endocrine: Reports fatigue [facility] Medical History History of cardioversion FARHEEN on CPAP Alcohol abuse HTN (hypertension) (HFpEF) heart failure with preserved ejection fraction Family History Mother HTN (hypertension) Diabetes mellitus Father Diabetes mellitus HTN (hypertension) Surgical History Status post ORIF of fracture of ankle S/P hip replacement Social History Household Members: Family Household Members Other:: Girlfriend and daughter Housing: Apartment Are you a primary resident care coordinator to a significant other at home: No Do you presently have visiting nurse or other home services: No Alcohol intake: former Patient Tobacco Use Status: Never used Tobacco e-Cigarette/Vaping Use: Never Used Second Hand Smoke Exposure: No Substance Use Type: Marijuana Advance Directives: Yes Advance Directives on File: Yes Advance Directives Date on File: 01/25/21 Do you have a plan to hurt others: No Plan service: No Current occupational status: retired Cognitive needs: No Hearing needs: No Vision needs: No Meds Allergies Allergy/AdvReac Type Severity Reaction Status Date / Time No Known Allergies Allergy Verified 02/23/24 19:11 Home Medications ?Medication ?Instructions ?Recorded ?Confirmed ?Last Taken ?Type lisinopril 20 mg tablet 20 mg PO DAILY 04/10/23 02/15/24 Unknown History Physical Exam 2 Vital Signs and Narrative: Vital Signs: Last Vital Signs Temp 98.8 F 02/24/24 00:38 Pulse 58 02/24/24 00:38 Resp 17 02/24/24 00:38 BP 183/101 H 02/24/24 00:38 Pulse Ox 94 02/24/24 00:38 O2 Del Method Room Air 02/24/24 00:38 BMI result Body Mass Index 33.0 Middle-aged male lying in bed in no distress Neck supple, no JVD Irregularly irregular, S1-S2 heard Regular breath sounds bilaterally, no wheezing or crackles appreciated Abdomen with generalized tenderness, no rigidity, no rebound tenderness Patient is awake, alert and oriented to self, place, time and person ; no focal motor deficit Psych: Normal mood No pedal edema Results Labs 02/23/24 20:04 02/23/24 20:04 Labs: Laboratory Results - last 24 hr 02/23/24 02/23/24 02/24/24 20:04 22:03 00:33 MCV 80.5 MCH 24.3 L MCHC 30.1 L RDW 15.8 Plt Count 222 MPV 11.0 Immature Gran % (Auto) 0.3 Neut % (Auto) 77.7 H Lymph % (Auto) 13.6 L [place] % (Auto) 7.5 Eos % (Auto) 0.6 Baso % (Auto) 0.3 Lymph # (Auto) 1.2 [place] # (Auto) 0.7 Eos # (Auto) 0.1 Baso # (Auto) 0.0 Abs Immat Gran (auto) 0.03 Absolute Neuts (auto) 7.0 Absolute Nucleated RBC 0.000 Nucleated RBC % (auto) 0.0 PT 16.3 H D INR 1.3 H APTT 28.3 Anion Gap 12 Estim Creat Clear Calc 132.1 Estimated GFR > 60 Random Glucose 100 Calcium 9.4 Total Bilirubin 1.1 H Direct Bilirubin 0.4 AST 16 ALT 6 Alkaline Phosphatase 80 Total Protein 6.8 Albumin 3.6 Lipase 147 H Urine Color Yellow Urine Appearance Clear Urine pH 7.0 Ur Specific [place] >= 1.030 H Urine Protein 30 (1+) H Urine Glucose (UA) Negative Urine Ketones 15 Urine Blood Negative Urine Nitrite Negative Ur Leukocyte Esterase Negative Urine RBC 0-2 Urine WBC 0-5 Ur Squamous Epith Cells 0-2 Urine Bacteria None Seen Hyaline Casts 0-2 Stool Occult Blood NEGATIVE Imaging Radiologist's Impressions: Impressions Abdomen/Pelvis CT 02/23/24 21:07 IMPRESSION: 1. Embolization coils in the upper right mesentery. 2. Thickening of the wall of the duodenum. There is edema in the mesentery around the duodenum and at the root of the mesentery. This is new since CAT scan January 07, 2024. Given patient history and prior site of hemorrhage with embolization coils in this region this may be site of current gastrointestinal hemorrhage. There is however no pooling of contrast in the bowel lumen is evident to indicate acute hemorrhage. 3. Small volume of free fluid in the cul-de-sac. 4. Stable left adrenal adenoma. No further follow-up imaging needed. Fleischner guidelines were followed. Assessment and Plan (1) Abdominal pain: Qualifiers: Abdominal location: upper abdomen, unspecified Qualified Code(s): R 10.10 - Upper abdominal pain, unspecified Status: Acute (2) Acute anemia: Status: Acute Plan This is a 58-year-old male with pertinent history of permanent atrial fibrillation on anticoagulation, congestive heart failure with preserved ejection fraction, ventricular tachycardia status post ICD, alcohol use disorder, FARHEEN on CPAP, hypertension who presents to the emergency department for evaluation of abdominal pain. #. Abdominal pain with acute anemia, likely blood loss: Will admit patient with cardiac monitoring. Imaging concerning for GI bleed. Initiating IV Protonix. Previously admitted for GI bleed in October and December of 2023 at [facility]. Consulting Gastroenterology, appreciate assistance. Hold Eliquis #. Congestive heart failure with preserved ejection fraction: No decompensation during admission #. FARHEEN: On CPAP at bedtime #. Hypertension: Hold antihypertensives in the setting of possible GI bleed #. Permanent atrial fibrillation: Rate controlled in the ER. Hold Eliquis as above Med rec pending DVT prophylaxis: Mechanical Full code Admit as inpatient and will require two night minimum hospital stay for monitoring of hemodynamics, H&H (as above), which is not possible in a lesser acute setting. Specialist consult pending Quality Stroke Does the patient have a stroke diagnosis?: No VTE Prior VTE?: No VTE Risk Level:: Medical - moderate - high VTE Device Contraindication: N/A - Device Ordered VTE Drug Contraindication: Treatment Not Indicated
[2024-02-24 05:29] LABS: MANUAL DIFF FLAG NO
[2024-02-24 05:31] LABS: Basophils Percent Auto 0.3 % (0-2); Eosinophils Percent Auto 0.3 % (0-4); Hemoglobin 8.5 g/dl (14.0-18.0); Imm Gran Abs Auto 0.03 X10*3/uL (0.00-0.03); Imm Gran Pct Auto 0.3 % (0.0-0.4); Lymphocytes Absolute Auto 1.3 X10*3/uL (1.2-4.9); Lymphocytes Percent Auto 14.3 % (20-40); Mean Corpuscular HGB Conc 30.4 g/dl (31.0-36.0); Mean Corpuscular Hemoglobin 23.7 pg (27.0-33.0); Mean Platelet Volume 10.7 fL (9.4-12.4); Monocytes Absolute Auto 0.8 X10*3/uL (0.1-1.2); Monocytes Percent Auto 8.3 % (2-11); Neutrophils Absolute Auto 7.1 x10*3/uL (2.0-8.3); Neutrophils Percent Auto 76.5 % (45-73); Platelet Count 226 X10*3/uL (160-400); Red Blood Count 3.59 X10*6/uL (4.60-5.80); Red Cell Distribution Width 15.8 % (11.0-16.0); White Blood Count 9.3 X10*3/uL (4.8-10.8)
[2024-02-24 05:48] LABS: Anion Gap 12 (12-20); Blood Urea Nitrogen 8 mg/dL (9-16); Calcium 9.1 mg/dL (8.4-10.2); Carbon Dioxide 25 mmol/L (22-29); Chloride 105 mmol/L (96-108); Creatinine Clr Calc Pharmacy 140.2; Estimated Glomerular Filt Rate > 60; Glucose Random 94 mg/dL (60-115); Potassium 3.5 mmol/L (3.3-5.1); Sodium 138 mmol/L (135-145)
--- NOTE | 2024-02-24 10:01 | PM.GICN ---
History of Present Illness Data of Consult Service Date: 02/24/24 Requesting physician: Jocelyne Chauhan Primary Care Provider: YESY Martinez HPI Reason for consult: anemia 58-year-old male with pertinent history of permanent atrial fibrillation on anticoagulation, congestive heart failure with preserved ejection fraction, ventricular tachycardia status post ICD, alcohol use disorder, FARHEEN on CPAP, hypertension who I am seeing for assessment for anemia and abdominal pain. patient noted sudden onset burning type of epigastric pain radiating into the mid abdomen for last few days with no exacerbating or releiving factors.Pain is, 8/10 in severity with poor appetite, but no nausea or vomiting, and no fever, chills, chest discomfort, palpitations, shortness of breath, changes in urinary habits. He does admit to constipation, but passing gas. no melena or rectal bleeding. he denies taking nsaids, no recreational drug use. He says he had similar pain 10/2023 and was sent to [facility] [[email or web address]],. per scanned notes he had embolization of GDA due to alisha duodenal hematoma. He had a repeat admission in December and had egd and colo-he was told here was a polyp present but not removed. he was not put on PPI. HGB slightly lower than prior hb 11-->9 g/dl. Lipase mildly elevated 147 Ct imaging with colis seen, and mid abdominal mesenteric haziness Review of Systems Review of Systems: Constitutional : No Weight loss, No Fever, No Chills ENT/Mouth : No sore throat, No Rhinorrhea Eyes: No Swelling, No Redness Cardiovascular : No Chest Pain, No SOB, No Edema Respiratory : No Cough, No Sputum, No Wheezing Gastrointestinal : see HPI Genitourinary : NO Dysuria, No Urinary Frequency, No Hematuria, No Urgency Musculoskeletal : + joint pain, No Myalgias, No Joint Swelling Skin : No Skin Lesions, No rash Neuro : No Weakness, No Numbness, No Dizziness, No Headache Psych : No Anxiety/Panic, No Depression Heme/Lymph: No Bruising, No Lymphadenopathy Endocrine : No Polyuria, No Polydipsia All other systems reviewed and are negative. [facility] Past Medical History Medical History History of cardioversion FARHEEN on CPAP Alcohol abuse HTN (hypertension) (HFpEF) heart failure with preserved ejection fraction Family History Family History Mother HTN (hypertension) Diabetes mellitus Father Diabetes mellitus HTN (hypertension) Surgical History Surgical History Status post ORIF of fracture of ankle S/P hip replacement Social History Social History Household Members: Family Household Members Other:: Girlfriend and daughter Housing: Apartment Are you a primary career services representative to a significant other at home: No Do you presently have visiting nurse or other home services: No Alcohol intake: former Patient Tobacco Use Status: Never used Tobacco e-Cigarette/Vaping Use: Never Used Second Hand Smoke Exposure: No Substance Use Type: Marijuana Advance Directives: Yes Advance Directives on File: Yes Advance Directives Date on File: 01/25/21 Do you have a plan to hurt others: No Plan Nutrition Risks: No Nutritional Risk service: No Current occupational status: retired Cognitive needs: No Hearing needs: No Vision needs: No Meds Allergies Allergy/AdvReac Type Severity Reaction Status Date / Time No Known Allergies Allergy Verified 02/23/24 19:11 Active Medications: Current Medications Acetaminophen (Acetaminophen 325 Mg Tablet) 650 mg PO Q6H PRN PRN Reason: Pain, Mild (Pain Scale 1-3), fever or headache Calcium Carbonate (Calcium Carbonate 750 Mg Tab.Chew) 750 mg PO Q4H PRN PRN Reason: Heartburn Magnesium Hydroxide (Milk Of Magnesia 30 Ml Oral.Susp) 30 ml PO DAILY PRN PRN Reason: Constipation Melatonin (Melatonin 3 Mg Tablet) 6 mg PO BEDTIME PRN PRN Reason: Insomnia Morphine Sulfate (Morphine Sulfate 4 Mg/Ml Cartridge) 4 mg IVPUSH Q4H PRN; Protocol PRN Reason: Pain, Severe (Pain Scale 7-10) Last Admin: 02/24/24 06:34 Dose: 4 mg Ondansetron HCl (Ondansetron Hcl 4 Mg/2 Ml Vial) 4 mg IVPUSH Q8H PRN PRN Reason: Nausea and Vomiting Last Admin: 02/24/24 06:34 Dose: 4 mg Pantoprazole Sodium (Pantoprazole Sodium 40 Mg/10 Ml Vial) 40 mg IVPUSH BID@0630,1630 [facility] Last Admin: 02/24/24 05:53 Dose: 40 mg Sodium Chloride (0.9 % Sodium Chloride Flush 3 Ml Syringe) 3 ml IVFLUSH QSHIFT [facility] Last Admin: 02/24/24 10:00 Dose: Not Given Home Medications ?Medication ?Instructions ?Recorded ?Confirmed ?Last Taken ?Type lisinopril 20 mg tablet 20 mg PO DAILY 04/10/23 02/24/24 02/23/24 History psyllium 1 packet PO DAILY 02/24/24 02/24/24 02/23/24 History Physical Exam Vital Signs: Vital Signs: Last Vital Signs Temp 99.0 F 02/24/24 05:57 Pulse 58 02/24/24 05:57 Resp 17 02/24/24 05:57 BP 183/93 H 02/24/24 05:57 Pulse Ox 97 02/24/24 05:57 O2 Del Method Room Air 02/24/24 05:57 BMI result Body Mass Index 33.0 EXAM: GENERAL: The patient is well developed and nontoxic. VITAL SIGNS:see workflow HEENT: Nonicteric sclerae, PERRLA, EOMI. Oropharynx clear. Moist mucous membranes. Conjunctivae appear well perfused. No thyroid mass. CHEST: Chest wall is nontender. HEART: Regular rate and rhythm without murmurs. LUNGS: Clear to auscultation bilaterally. ABDOMEN: Soft, positive bowel sounds, mildlytender epigastrium, no organomegaly.no flank tenderness SKIN: No rash, no excessive bruising, petechiae, or purpura. NEUROLOGIC: Cranial nerves II-XII intact without motor/sensory deficit. Psych: normal affect Results Labs 02/24/24 05:17 02/24/24 05:17 Labs: Short CBC 02/23/24 02/24/24 Range/Units 20:04 05:17 WBC 9.0 9.3 (4.8-10.8) X10*3/uL Hgb 8.1 L D 8.5 L (14.0-18.0) g/dl Hct 26.9 L 28.0 L (42.0-52.0) % Plt Count 222 226 (160-400) X10*3/uL BMP 02/23/24 02/24/24 20:04 05:17 Sodium 139 138 Potassium 4.1 3.5 Chloride 106 105 Carbon Dioxide 25 25 BUN 9 8 L Creatinine 0.87 0.82 Calcium 9.4 9.1 Liver Function 02/23/24 Range/Units 20:04 Total Bilirubin 1.1 H (0.0-1.0) mg/dL Direct Bilirubin 0.4 (0.0-0.5) mg/dL AST 16 (5-37) U/L ALT 6 (0-40) U/L Alkaline Phosphatase 80 (39-117) U/L Albumin 3.6 (3.5-5.0) g/dL Urine 02/23/24 Range/Units 22:03 Urine Color Yellow Urine Appearance Clear Urine pH 7.0 (5.0-9.0) Ur Specific [place] >= 1.030 H (1.005-1.025) Urine Protein 30 (1+) H (Neg-Trace) mg/dL Urine Glucose (UA) Negative (Negative) mg/dL Imaging CT scan - abdomen: Attestation: I personally reviewed and interpreted this imaging study as follows: (colis noted, mesenteric stranding, thickened duodenum , atherosclerosis) Assessment and Plan (1) Abdominal pain: Qualifiers: Abdominal location: upper abdomen, unspecified Qualified Code(s): R10.10 - Upper abdominal pain, unspecified Status: Acute Plan 1/ Abdominal pain, w/o overt GIB, hgb stable, CT imaging with duodenal thickening and duodenitis, might have ulcer. First presentation might have been a contained bleed, PLAN: 1/ allow clears 2/ small bowel thru, 3/ depending on 2/ might surgical input or rept EGD with colonoscopy with removal of polyp 4/ cont to monitor HGB 5/ hold eliquis for the moment Procedures Date of Service Date of Service: 02/24/24
--- NOTE | 2024-02-24 12:16 | PHA.MEDREC ---
Pharmacy Consult ? Medication Reconciliation Pharmacy has completed the medication reconciliation.
--- NOTE | 2024-02-24 15:04 | PC.NURSE ---
Per [facility], pt is to NPO at midnight on Monday for imaging on Monday. clear liquid diet until then
--- NOTE | 2024-02-24 16:43 | P.EN_ITS ---
Event Note Date of Service: 02/24/24 Event Note: 58-year-old male with pertinent history of permanent atrial fibrillation on anticoagulation, congestive heart failure with preserved ejection fraction, ventricular tachycardia status post ICD, alcohol use disorder, FARHEEN on CPAP, hypertension who presents to the emergency department for evaluation of abdominal pain. #. Abdominal pain with acute on chronic anemia, likely blood loss: CT abdomen and pelvis showed embolization coils in the upper right mese ntery, thickening of the wall of duodenum, edema in the mesentery around the duodenum and at root of the mesentery concerning for area of current gastrointestinal hemorrhage. cont. IV Protonix, Hold Eliquis, add clear liquid diet Hematocrit dropped but stable, stool occult test negative Follow CBC, iron profile, tsh GI consult, avoid NSAIDs/blood thinners #. Congestive heart failure with preserved ejection fraction: No acute decompensation noted. #. FARHEEN: CPAP at bedtime #. Hypertension: Elevated blood pressure resume home medications lisinopril, metoprolol. #. Permanent atrial fibrillation: Continue metoprolol and amiodarone, Hold Eliquis as above DVT prophylaxis: Mechanical Full code Time Spent With Patient Time: Total time managing care of this patient today ____ minutes.
[2024-02-24] MEDS: lisinopriL 20 MG TABLET PO (17:26)
[2024-02-24] MEDS: 0.9 % Sodium Chloride Flush 3 ML SYRINGE IVFLUSH (23:52)
[2024-02-25] VITALS (8 sets, daily range): BP systolic 147–165; BP diastolic 80–94; PULSE 59–65; RESP 16–18; TEMP 36.5–37.3; O2SAT 93–97
[2024-02-25 06:40] LABS: Hematocrit 28.2 % (42.0-52.0); Hemoglobin 8.6 g/dl (14.0-18.0); Mean Corpuscular HGB Conc 30.5 g/dl (31.0-36.0); Mean Corpuscular Hemoglobin 23.8 pg (27.0-33.0); Mean Corpuscular Volume 77.9 fL (80.0-98.0); Mean Platelet Volume 11.2 fL (9.4-12.4); Platelet Count 217 X10*3/uL (160-400); Red Blood Count 3.62 X10*6/uL (4.60-5.80); Red Cell Distribution Width 15.9 % (11.0-16.0); White Blood Count 9.5 X10*3/uL (4.8-10.8)
[2024-02-25 07:04] LABS: Iron 14 mcg/dL (45-160); Percent Iron Saturation 4 % (15-50); Total Iron Binding Capacity 337 mcg/dL (228-428); Unsaturated Iron Binding 323 ug/dL
[2024-02-25 07:20] LABS: Ferritin 44 ng/mL (20-250); Thyroid Stimulating Hormone 0.73 uIU/mL (0.32-4.0)
[2024-02-25] MEDS: Morphine Sulfate 4 MG/ML CARTRIDGE IVPUSH ×2 (07:26→23:21)
[2024-02-25] MEDS: Pantoprazole Sodium 40 MG/10 ML VIAL IVPUSH ×2 (07:27→15:35)
[2024-02-25] MEDS: Metoprolol Succinate ER 100 MG TAB.ER.24H PO (08:07)
[2024-02-25] MEDS: Amiodarone HCL 200 MG TABLET PO (08:08)
[2024-02-25] MEDS: lisinopriL 20 MG TABLET PO (08:08)
[2024-02-25] MEDS: 0.9 % Sodium Chloride Flush 3 ML SYRINGE IVFLUSH ×3 (08:16→23:23)
--- NOTE | 2024-02-25 08:22 | MHC.CM.PN ---
PT REPORTS HE LIVES WITH HIS GIRLFRIEND AND DAUGHTER HE IS INDEPENDENT WITH CARE AND USES A CPAP HE HAS A HCP ON FILE HE CONFIRMS IS ACCURATE PCP: PRIYA SANCHEZ DCP: HOME NO SERVICES VIA PRIVATE TRANSPORT
[2024-02-25] MEDS: Iron Sucrose Complex 200 MG in 0.9 % Sodium Chloride 100 ML 440 MG IV (10:05)
--- NOTE | 2024-02-25 11:25 | HO.PM.IMPN ---
Subjective Subjective Date of Service: 02/25/24 Interval History: Being followed for abdominal pain. Had abdominal pain early this morning resolved with IV morphine, complaining of abdominal soreness, no nausea, no vomiting, no hematemesis or melena tolerating clear liquid diet no acute events overnight. Review of Systems All other system reviewed and are negative. Physical Exam Vital Signs: Vital Signs: Last Vital Signs Temp 97.7 F 02/25/24 07:17 Pulse 64 02/25/24 07:17 Resp 18 02/25/24 07:17 BP 159/86 H 02/25/24 07:17 Pulse Ox 94 02/25/24 07:17 O2 Del Method Room Air 02/25/24 07:17 BMI result Body Mass Index 33.0 Const: Other: General awake alert x3, resting comfortably in no acute distress. Anicteric sclera Neck no JVD. CVS regular rate rhythm, Respiratory lungs clear to auscultation, no respiratory distress, no wheeze, no rhonchi. Gastrointestinal abdomen soft, obese, bowel sounds audible, nontender no guarding , no rigidity. Extremities no edema. Neuro non focal Skin no rash Appropriate affect Objective Data Active Medications Acetaminophen (Acetaminophen 325 Mg Tablet) 650 mg PO Q6H PRN PRN Reason: Pain, Mild (Pain Scale 1-3), fever or headache Amiodarone HCl (Amiodarone Hcl 200 Mg Tablet) 200 mg PO DAILY [facility] Last Admin: 02/25/24 08:08 Dose: 200 mg Documented By: THERESA Calcium Carbonate (Calcium Carbonate 750 Mg Tab.Chew) 750 mg PO Q4H PRN PRN Reason: Heartburn Iron Sucrose 200 mg/ Sodium (Chloride) 110 mls @ 440 mls/hr IV DAILY [facility] Stop: 02/26/24 09:14 Last Infusion: 02/25/24 10:20 Dose: Infused Documented By: THERESA Lisinopril (Lisinopril 20 Mg Tablet) 20 mg PO DAILY [facility]; Protocol Last Admin: 02/25/24 08:08 Dose: 20 mg Documented By: THERESA Magnesium Hydroxide (Milk Of Magnesia 30 Ml Oral.Susp) 30 ml PO DAILY PRN PRN Reason: Constipation Melatonin (Melatonin 3 Mg Tablet) 6 mg PO BEDTIME PRN PRN Reason: Insomnia Metoprolol Succinate (Metoprolol Succinate Er 100 Mg Tab.Er.24h) 100 mg PO DAILY [facility]; Protocol Last Admin: 02/25/24 08:07 Dose: 100 mg Documented By: THERESA Morphine Sulfate (Morphine Sulfate 4 Mg/Ml Cartridge) 4 mg IVPUSH Q4H PRN; Protocol PRN Reason: Pain, Severe (Pain Scale 7-10) Last Admin: 02/25/24 07:26 Dose: 4 mg Documented By: IZZY Ondansetron HCl (Ondansetron Hcl 4 Mg/2 Ml Vial) 4 mg IVPUSH Q8H PRN PRN Reason: Nausea and Vomiting Last Admin: 02/24/24 06:34 Dose: 4 mg Documented By: JORGE Pantoprazole Sodium (Pantoprazole Sodium 40 Mg/10 Ml Vial) 40 mg IVPUSH BID@0630,1630 [facility] Last Admin: 02/25/24 07:27 Dose: 40 mg Documented By: IZZY Sodium Chloride (0.9 % Sodium Chloride Flush 3 Ml Syringe) 3 ml IVFLUSH QSHIFT [facility] Last Admin: 02/25/24 08:16 Dose: 3 ml Documented By: THERESA Labs 02/25/24 05:54 02/24/24 05:17 Labs: Laboratory Results - last 24 hr 02/25/24 05:54 MCV 77.9 L MCH 23.8 L MCHC 30.5 L RDW 15.9 Plt Count 217 MPV 11.2 Absolute Nucleated RBC 0.000 Nucleated RBC % (auto) 0.0 Iron 14 L TIBC 337 % Saturation 4 L Unsat Iron Binding 323 Ferritin 44 TSH 0.73 Assessment and Plan (1) Acute anemia: Status: Acute (2) Abdominal pain: Status: Acute Plan 58-year-old male with pertinent history of permanent atrial fibrillation on anticoagulation, congestive heart failure with preserved ejection fraction, ventricular tachycardia status post ICD, alcohol use disorder, FARHEEN on CPAP, hypertension who presents to the emergency department for evaluation of abdominal pain. #. Abdominal pain with acute on chronic anemia, No acute blood loss noted. CT abdomen and pelvis showed embolization coils in the upper right mesentery, thickening of the wall of duodenum, edema in the mesentery around the duodenum and at root of the mesentery concerning for area of current gastrointestinal hemorrhage. ddx duodenitis/pud cont. IV Protonix, Hold Eliquis, avoid NSAIDs, clear liquid diet, NPO after midnight Hematocrit dropped but stable, stool occult test negative Iron profile consistent with iron deficiency, will place on IV iron, Follow CBC Seen by GI they recommend barium follow-thru and depending on result will undergo EGD with colonoscopy #. Congestive heart failure with preserved ejection fraction: No acute decompensation noted, not on diuretics. #. FARHEEN: CPAP at bedtime #. Hypertension: Continue lisinopril,and metoprolol. #. Permanent atrial fibrillation: Continue metoprolol and amiodarone, Hold Eliquis as above DVT prophylaxis: Mechanical Full code Patient require continued inpatient hospitalization for acute on chronic anemia requiring further workup and expert consultation. Quality Stroke Does the patient have a stroke diagnosis?: No VTE Prior VTE?: No VTE Risk Level:: Medical - moderate - high VTE Device Contraindication: N/A - Device Ordered VTE Drug Contraindication: Treatment Not Indicated
--- NOTE | 2024-02-25 12:33 | P.PNGI_ITS ---
Subjective Subjective Date of Service: 02/25/24 Interval History: abdo pain is less no nausea no melena no rectal bleeding Critical Care Time (minutes): 0 Physical Exam 2 Vital Signs: Vital Signs: Last Vital Signs Temp 98.1 F 02/25/24 11:25 Pulse 64 02/25/24 11:25 Resp 18 02/25/24 11:25 BP 147/84 H 02/25/24 11:25 Pulse Ox 96 02/25/24 11:25 O2 Del Method Room Air 02/25/24 11:25 BMI result Body Mass Index 33.0 Const: Other: General awake alert x3, resting comfortably in no acute distress. Anicteric sclera Neck no JVD. CVS regular rate rhythm, Respiratory lungs clear to auscultation, no respiratory distress, no wheeze, no rhonchi. Gastrointestinal abdomen soft, obese, bowel sounds audible, nontender no guarding , no rigidity. Extremities no edema. Neuro non focal Skin no rash Appropriate affect Objective Data Labs 02/25/24 05:54 02/24/24 05:17 Labs: Laboratory Results - last 24 hr 02/25/24 05:54 WBC 9.5 RBC 3.62 L Hgb 8.6 L Hct 28.2 L MCV 77.9 L MCH 23.8 L MCHC 30.5 L RDW 15.9 Plt Count 217 MPV 11.2 Absolute Nucleated RBC 0.000 Nucleated RBC % (auto) 0.0 Iron 14 L TIBC 337 % Saturation 4 L Unsat Iron Binding 323 Ferritin 44 TSH 0.73 Procedures Date of Service Date of Service: 02/25/24 Progress Note: A&P Assessment and plan (1) Abdominal pain: Status: Acute Plan 1/ Abdominal pain, ? due to duodenitis, or mesenteritis less liekly pancreatitis PLAN: 1/ cont with PPI 2/ small bowel follow thru Time Spent With Patient Time: Total time managing care of this patient today ____ minutes. Quality Stroke Does the patient have a stroke diagnosis?: No VTE Prior VTE?: No VTE Risk Level:: Medical - moderate - high VTE Device Contraindication: N/A - Device Ordered VTE Drug Contraindication: Treatment Not Indicated
[2024-02-26 02:48] VITALS: BP 165/81; PULSE 58; RESP 16; TEMP 36.8; O2SAT 94
--- NOTE | 2024-02-26 04:37 | PC.NURSE ---
Pt AOx4, independent in room, able to make needs known. Pt NPO @ midnight for procedure later today. He wore his CPAP for most of the night. Call webber within reach. Additional safety checks performed by this RN and [employer].
[2024-02-26] MEDS: Pantoprazole Sodium 40 MG/10 ML VIAL IVPUSH ×2 (05:56→16:01)
[2024-02-26 07:13] LABS: Hematocrit 28.4 % (42.0-52.0); Hemoglobin 9.2 g/dl (14.0-18.0); Mean Corpuscular HGB Conc 32.4 g/dl (31.0-36.0); Mean Corpuscular Hemoglobin 25.6 pg (27.0-33.0); Mean Corpuscular Volume 79.1 fL (80.0-98.0); Mean Platelet Volume 12.2 fL (9.4-12.4); Platelet Count 239 X10*3/uL (160-400); Red Blood Count 3.59 X10*6/uL (4.60-5.80); Red Cell Distribution Width 16.1 % (11.0-16.0); White Blood Count 7.2 X10*3/uL (4.8-10.8)
[2024-02-26 07:15] VITALS: BP 164/95; PULSE 57; RESP 20; TEMP 36.6; O2SAT 96
[2024-02-26] MEDS: Metoprolol Succinate ER 100 MG TAB.ER.24H PO (07:45)
[2024-02-26] MEDS: lisinopriL 20 MG TABLET PO (07:46)
[2024-02-26] MEDS: Amiodarone HCL 200 MG TABLET PO (07:49)
[2024-02-26] MEDS: Iron Sucrose Complex 200 MG in 0.9 % Sodium Chloride 100 ML 400 MG IV (07:49)
[2024-02-26] MEDS: 0.9 % Sodium Chloride Flush 3 ML SYRINGE IVFLUSH ×3 (07:58→19:58)
--- NOTE | 2024-02-26 10:51 | MHC.CM.PN ---
Patient is not yet medically cleared for dc (Upper Endoscopy); home is the goal and CM will follow.
[2024-02-26 11:12] VITALS: BP 137/83; PULSE 67; RESP 20; TEMP 36.5; O2SAT 99
--- NOTE | 2024-02-26 14:29 | HO.PM.IMPN ---
Subjective Subjective Date of Service: 02/26/24 Interval History: Being followed for abdominal pain, no acute issues overnight scheduled for barium follow-through. Review of Systems All other system reviewed and are negative Physical Exam Vital Signs: Vital Signs: Last Vital Signs Temp 97.7 F 02/26/24 11:12 Pulse 67 02/26/24 11:12 Resp 20 02/26/24 11:12 BP 137/83 02/26/24 11:12 Pulse Ox 99 02/26/24 11:12 O2 Del Method Room Air 02/26/24 11:12 BMI result Body Mass Index 33.0 Const: Other: General awake alert x3, resting comfortably in no acute distress. Anicteric sclera Neck no JVD. CVS regular rate rhythm, Respiratory lungs clear to auscultation, no respiratory distress, no wheeze, no rhonchi. Gastrointestinal abdomen soft, obese, bowel sounds audible, nontender, no guarding , no rigidity. Extremities no edema. Neuro non focal Skin no rash Appropriate affect Objective Data Active Medications Acetaminophen (Acetaminophen 325 Mg Tablet) 650 mg PO Q6H PRN PRN Reason: Pain, Mild (Pain Scale 1-3), fever or headache Amiodarone HCl (Amiodarone Hcl 200 Mg Tablet) 200 mg PO DAILY [facility] Last Admin: 02/26/24 07:49 Dose: 200 mg Documented By: DELFINA Calcium Carbonate (Calcium Carbonate 750 Mg Tab.Chew) 750 mg PO Q4H PRN PRN Reason: Heartburn Lisinopril (Lisinopril 20 Mg Tablet) 20 mg PO DAILY [facility]; Protocol Last Admin: 02/26/24 07:46 Dose: 20 mg Documented By: DELFINA Magnesium Hydroxide (Milk Of Magnesia 30 Ml Oral.Susp) 30 ml PO DAILY PRN PRN Reason: Constipation Melatonin (Melatonin 3 Mg Tablet) 6 mg PO BEDTIME PRN PRN Reason: Insomnia Metoprolol Succinate (Metoprolol Succinate Er 100 Mg Tab.Er.24h) 100 mg PO DAILY [facility]; Protocol Last Admin: 02/26/24 07:45 Dose: 100 mg Documented By: DELFINA Morphine Sulfate (Morphine Sulfate 4 Mg/Ml Cartridge) 4 mg IVPUSH Q4H PRN; Protocol PRN Reason: Pain, Severe (Pain Scale 7-10) Last Admin: 02/25/24 23:21 Dose: 4 mg Documented By: KIAH Ondansetron HCl (Ondansetron Hcl 4 Mg/2 Ml Vial) 4 mg IVPUSH Q8H PRN PRN Reason: Nausea and Vomiting Last Admin: 02/24/24 06:34 Dose: 4 mg Documented By: JORGE Pantoprazole Sodium (Pantoprazole Sodium 40 Mg/10 Ml Vial) 40 mg IVPUSH BID@0630,1630 [facility] Last Admin: 02/26/24 05:56 Dose: 40 mg Documented By: KIAH Sodium Chloride (0.9 % Sodium Chloride Flush 3 Ml Syringe) 3 ml IVFLUSH QSHIFT [facility] Last Admin: 02/26/24 07:58 Dose: 3 ml Documented By: DELFINA Labs 02/26/24 06:07 02/24/24 05:17 Labs: Laboratory Results - last 24 hr 02/26/24 06:07 MCV 79.1 L MCH 25.6 L MCHC 32.4 RDW 16.1 H Plt Count 239 MPV 12.2 Absolute Nucleated RBC 0.000 Nucleated RBC % (auto) 0.0 Assessment and Plan (1) Acute anemia: Status: Acute (2) Abdominal pain: Status: Acute Plan 58-year-old male with pertinent history of permanent atrial fibrillation on anticoagulation, congestive heart failure with preserved ejection fraction, ventricular tachycardia status post ICD, alcohol use disorder, FARHEEN on CPAP, hypertension who presents to the emergency department for evaluation of abdominal pain. #. Abdominal pain with acute on chronic anemia No acute blood loss noted. CT abdomen and pelvis showed embolization coils in the upper right mesentery, thickening of the wall of duodenum, edema in the mesentery around the duodenum and at root of the mesentery concerning for area of current gastrointestinal hemorrhage. ddx duodenitis/pud cont. IV Protonix, Hold Eliquis, avoid NSAIDs, clear liquid diet, NPO after midnight Hematocrit dropped but stable, stool occult test negative Iron profile consistent with iron deficiency, s/p IV iron x 2 d, repeat hematocrit stable Seen by GI they recommend barium follow-thru, imaging obtained this morning report pending will undergo EGD with colonoscopy depending on report. #. Congestive heart failure with preserved ejection fraction: No acute decompensation noted, not on diuretics. #. FARHEEN: CPAP at bedtime #. Hypertension: Continue lisinopril,and metoprolol. #. Permanent atrial fibrillation: Continue metoprolol and amiodarone, Hold Eliquis as above. # class 1 obesity recommend low-calorie diet DVT prophylaxis: Mechanical Full code Patient require continued inpatient hospitalization for acute on chronic anemia requiring further workup and expert consultation. Quality Stroke Does the patient have a stroke diagnosis?: No VTE Prior VTE?: No VTE Risk Level:: Medical - moderate - high VTE Device Contraindication: N/A - Device Ordered VTE Drug Contraindication: Treatment Not Indicated
[2024-02-26 15:02] VITALS: BP 146/78; PULSE 80; RESP 20; TEMP 36.3; O2SAT 94
[2024-02-26] MEDS: Morphine Sulfate 4 MG/ML CARTRIDGE IVPUSH (16:00)
[2024-02-26 20:00] VITALS: BP 147/79; PULSE 60; RESP 18; TEMP 36.4; O2SAT 94
[2024-02-26 23:11] VITALS: PULSE 60; RESP 18; O2SAT 94
[2024-02-27] VITALS (7 sets, daily range): BP systolic 127–160; BP diastolic 71–95; PULSE 62–72; RESP 18–20; TEMP 36.3–36.7; O2SAT 96–100
[2024-02-27] MEDS: Pantoprazole Sodium 40 MG/10 ML VIAL IVPUSH ×2 (05:44→15:59)
[2024-02-27] MEDS: lisinopriL 20 MG TABLET PO (07:31)
[2024-02-27] MEDS: Amiodarone HCL 200 MG TABLET PO (07:31)
[2024-02-27] MEDS: Metoprolol Succinate ER 100 MG TAB.ER.24H PO (07:31)
[2024-02-27] MEDS: 0.9 % Sodium Chloride Flush 3 ML SYRINGE IVFLUSH ×3 (07:37→19:58)
--- NOTE | 2024-02-27 13:24 | HO.PM.IMPN ---
Subjective Subjective Date of Service: 02/27/24 Interval History: Being followed for abdominal pain, no acute issues overnight scheduled for barium follow-through. Review of Systems All other system reviewed and are negative Physical Exam Vital Signs: Vital Signs: Last Vital Signs Temp 98.1 F 02/27/24 11:12 Pulse 66 02/27/24 11:12 Resp 20 02/27/24 11:12 BP 140/95 H 02/27/24 11:12 Pulse Ox 98 02/27/24 11:12 O2 Del Method Room Air 02/27/24 11:12 BMI result Body Mass Index 33.0 Appearing in no acute distress LCTA heart regular rate rhythm, clear S1, S2 positive bowel sounds, abdomen is soft, nontender neuro patient is alert x3, no focal deficits Objective Data Active Medications Acetaminophen (Acetaminophen 325 Mg Tablet) 650 mg PO Q6H PRN PRN Reason: Pain, Mild (Pain Scale 1-3), fever or headache Amiodarone HCl (Amiodarone Hcl 200 Mg Tablet) 200 mg PO DAILY [facility] Last Admin: 02/27/24 07:31 Dose: 200 mg Documented By: THERESA Calcium Carbonate (Calcium Carbonate 750 Mg Tab.Chew) 750 mg PO Q4H PRN PRN Reason: Heartburn Lisinopril (Lisinopril 20 Mg Tablet) 20 mg PO DAILY [facility]; Protocol Last Admin: 02/27/24 07:31 Dose: 20 mg Documented By: THERESA Magnesium Hydroxide (Milk Of Magnesia 30 Ml Oral.Susp) 30 ml PO DAILY PRN PRN Reason: Constipation Melatonin (Melatonin 3 Mg Tablet) 6 mg PO BEDTIME PRN PRN Reason: Insomnia Metoprolol Succinate (Metoprolol Succinate Er 100 Mg Tab.Er.24h) 100 mg PO DAILY [facility]; Protocol Last Admin: 02/27/24 07:31 Dose: 100 mg Documented By: THERESA Morphine Sulfate (Morphine Sulfate 4 Mg/Ml Cartridge) 4 mg IVPUSH Q4H PRN; Protocol PRN Reason: Pain, Severe (Pain Scale 7-10) Last Admin: 02/26/24 16:00 Dose: 4 mg Documented By: DELFINA Ondansetron HCl (Ondansetron Hcl 4 Mg/2 Ml Vial) 4 mg IVPUSH Q8H PRN PRN Reason: Nausea and Vomiting Last Admin: 02/24/24 06:34 Dose: 4 mg Documented By: JORGE Pantoprazole Sodium (Pantoprazole Sodium 40 Mg/10 Ml Vial) 40 mg IVPUSH BID@0630,1630 [facility] Last Admin: 02/27/24 05:44 Dose: 40 mg Documented By: DRE Sodium Chloride (0.9 % Sodium Chloride Flush 3 Ml Syringe) 3 ml IVFLUSH QSHIFT [facility] Last Admin: 02/27/24 07:37 Dose: 3 ml Documented By: PHANLYM Labs 02/26/24 06:07 02/24/24 05:17 Assessment and Plan (1) Acute anemia: Status: Acute (2) Abdominal pain: Status: Acute Plan 58-year-old male with pertinent history of permanent atrial fibrillation on anticoagulation, congestive heart failure with preserved ejection fraction, ventricular tachycardia status post ICD, alcohol use disorder, FARHEEN on CPAP, hypertension who presents to the emergency department for evaluation of abdominal pain. Abdominal pain with acute on chronic anemia No acute blood loss noted. CT abdomen and pelvis showed embolization coils in the upper right mesentery, thickening of the wall of duodenum, edema in the mesentery around the duodenum and at root of the mesentery concerning for area of current gastrointestinal hemorrhage. IV Protonix, Hold Eliquis, avoid NSAIDs, clear liquid diet Iron profile consistent with iron deficiency, s/p IV iron x 2 d, repeat hematocrit stable Seen by GI they recommend barium follow-thru, imaging obtained this morning report pending advance diet Plan for possible EGD tomorrow, npo after midnight Congestive heart failure with preserved ejection fraction No acute decompensation noted, not on diuretics. FARHEEN CPAP at bedtime Hypertension Continue lisinopril,and metoprolol. Permanent atrial fibrillation Continue metoprolol and amiodarone, Hold Eliquis as above. class 1 obesity recommend low-calorie diet DVT prophylaxis: Mechanical Attending Dr. Arora Full code Patient require continued inpatient hospitalization for acute on chronic anemia requiring further workup and expert consultation. Quality Stroke Does the patient have a stroke diagnosis?: No VTE Prior VTE?: No VTE Risk Level:: Medical - moderate - high VTE Device Contraindication: N/A - Device Ordered VTE Drug Contraindication: Treatment Not Indicated
[2024-02-27] MEDS: Morphine Sulfate 4 MG/ML CARTRIDGE IVPUSH (16:00)
--- NOTE | 2024-02-27 19:06 | P.PNGI_ITS ---
Subjective Subjective Date of Service: 02/27/24 Interval History: patient s much better pretty much pain free he had a large bowel motion without any melena or blood after his small bowel follow thru he is hungry and wants to eat Critical Care Time (minutes): 0 Physical Exam 2 Vital Signs: Vital Signs: Last Vital Signs Temp 97.9 F 02/27/24 15:28 Pulse 72 02/27/24 15:28 Resp 20 02/27/24 15:28 BP 127/71 02/27/24 15:28 Pulse Ox 97 02/27/24 15:28 O2 Del Method Room Air 02/27/24 15:28 BMI result Body Mass Index 33.0 EXAM: GENERAL: The patient is well developed and nontoxic. VITAL SIGNS:see workflow HEENT: Nonicteric sclerae, PERRLA, EOMI. Oropharynx clear. Moist mucous membranes. Conjunctivae appear well perfused. No thyroid mass. CHEST: Chest wall is nontender. HEART: Regular rate and rhythm without murmurs. LUNGS: Clear to auscultation bilaterally. ABDOMEN: Soft, positive bowel sounds, nontender, no organomegaly.no flank tenderness SKIN: No rash, no excessive bruising, petechiae, or purpura. NEUROLOGIC: Cranial nerves II-XII intact without motor/sensory deficit. Psych: normal affect Objective Data Labs 02/26/24 06:07 02/24/24 05:17 Procedures Date of Service Date of Service: 02/27/24 Progress Note: A&P Assessment and plan (1) Abdominal pain: Status: Acute Plan 1/ Abdominal pain with stable HGB unsure if this was from duodenitis based on small bowel thru or mesenteric inflammation, no melena or rectal bleeding PLAN: 1/ advance diet today, keep on PPI 2/ plan for EGD tomorrow, maybe colonoscopy thereafter if EGD neg Time Spent With Patient Time: Total time managing care of this patient today ____ minutes. Quality Stroke Does the patient have a stroke diagnosis?: No VTE Prior VTE?: No VTE Risk Level:: Medical - moderate - high VTE Device Contraindication: N/A - Device Ordered VTE Drug Contraindication: Treatment Not Indicated
[2024-02-28] VITALS (8 sets, daily range): BP systolic 104–145; BP diastolic 75–96; PULSE 64–98; RESP 16–20; TEMP 36.1–36.6; O2SAT 95–100
[2024-02-28] MEDS: Pantoprazole Sodium 40 MG/10 ML VIAL IVPUSH (05:56)
[2024-02-28] MEDS: Metoprolol Succinate ER 100 MG TAB.ER.24H PO (08:15)
[2024-02-28] MEDS: Amiodarone HCL 200 MG TABLET PO (08:16)
[2024-02-28] MEDS: 0.9 % Sodium Chloride Flush 3 ML SYRINGE IVFLUSH (08:16)
[2024-02-28] MEDS: lisinopriL 20 MG TABLET PO (08:16)
--- NOTE | 2024-02-28 09:29 | HO.PM.IMPN ---
Subjective Subjective Date of Service: 02/28/24 Interval History: Follow up abd pain no pain tolerated reg diet yesterday Review of Systems All other system reviewed and are negative Physical Exam Vital Signs: Vital Signs: Last Vital Signs Temp 97.7 F 02/28/24 07:45 Pulse 65 02/28/24 07:45 Resp 20 02/28/24 07:45 BP 144/78 H 02/28/24 07:45 Pulse Ox 98 02/28/24 07:45 O2 Del Method Room Air 02/28/24 07:45 BMI result Body Mass Index 33.0 Appearing in no acute distress lung sounds are clear to auscultation heart regular rate rhythm, clear S1, S2 positive bowel sounds, abdomen is soft, nontender neuro patient is alert x3, no focal deficits Objective Data Active Medications Acetaminophen (Acetaminophen 325 Mg Tablet) 650 mg PO Q6H PRN PRN Reason: Pain, Mild (Pain Scale 1-3), fever or headache Amiodarone HCl (Amiodarone Hcl 200 Mg Tablet) 200 mg PO DAILY [facility] Last Admin: 02/28/24 08:16 Dose: 200 mg Documented By: THERESA Calcium Carbonate (Calcium Carbonate 750 Mg Tab.Chew) 750 mg PO Q4H PRN PRN Reason: Heartburn Lisinopril (Lisinopril 20 Mg Tablet) 20 mg PO DAILY [facility]; Protocol Last Admin: 02/28/24 08:16 Dose: 20 mg Documented By: THERESA Magnesium Hydroxide (Milk Of Magnesia 30 Ml Oral.Susp) 30 ml PO DAILY PRN PRN Reason: Constipation Melatonin (Melatonin 3 Mg Tablet) 6 mg PO BEDTIME PRN PRN Reason: Insomnia Metoprolol Succinate (Metoprolol Succinate Er 100 Mg Tab.Er.24h) 100 mg PO DAILY [facility]; Protocol Last Admin: 02/28/24 08:15 Dose: 100 mg Documented By: THERESA Morphine Sulfate (Morphine Sulfate 4 Mg/Ml Cartridge) 4 mg IVPUSH Q4H PRN; Protocol PRN Reason: Pain, Severe (Pain Scale 7-10) Last Admin: 02/27/24 16:00 Dose: 4 mg Documented By: THERESA Ondansetron HCl (Ondansetron Hcl 4 Mg/2 Ml Vial) 4 mg IVPUSH Q8H PRN PRN Reason: Nausea and Vomiting Last Admin: 02/24/24 06:34 Dose: 4 mg Documented By: JORGE Pantoprazole Sodium (Pantoprazole Sodium 40 Mg/10 Ml Vial) 40 mg IVPUSH BID@0630,1630 [facility] Last Admin: 02/28/24 05:56 Dose: 40 mg Documented By: DRE Sodium Chloride (0.9 % Sodium Chloride Flush 3 Ml Syringe) 3 ml IVFLUSH QSHIFT [facility] Last Admin: 02/28/24 08:16 Dose: 3 ml Documented By: PHANLYM Labs 02/26/24 06:07 02/24/24 05:17 Assessment and Plan (1) Acute anemia: Status: Acute (2) Abdominal pain: Status: Acute Plan 58-year-old male with pertinent history of permanent atrial fibrillation on anticoagulation, congestive heart failure with preserved ejection fraction, ventricular tachycardia status post ICD, alcohol use disorder, FARHEEN on CPAP, hypertension who presents to the emergency department for evaluation of abdominal pain. Abdominal pain with CT abdomen and pelvis showed embolization coils in the upper right mesentery, thickening of the wall of duodenum, edema in the mesentery around the duodenum and at root of the mesentery concerning for area of current gastrointestinal hemorrhage. Upper GI series> Normal small bowel, delayed emptying due to duodenal edema, cannot r/o gastric outlet obstruction continue IV Protonix plan for EGD today Acute on chronic iron def anemia Iron profile consistent with iron deficiency s/p IV iron x 2 d repeat hematocrit stable Congestive heart failure with preserved ejection fraction No acute decompensation noted not on diuretics. FARHEEN CPAP at bedtime Hypertension Continue lisinopril,and metoprolol. Permanent atrial fibrillation Continue metoprolol and amiodarone Hold Eliquis as above. class 1 obesity recommend low-calorie diet DVT prophylaxis: Mechanical Attending Dr. Arora Full code Patient require continued inpatient hospitalization for acute on chronic anemia requiring further workup and expert consultation. Quality Stroke Does the patient have a stroke diagnosis?: No VTE Prior VTE?: No VTE Risk Level:: Medical - moderate - high VTE Device Contraindication: N/A - Device Ordered VTE Drug Contraindication: Treatment Not Indicated
--- NOTE | 2024-02-28 11:42 | MHC.CM.PN ---
Per MD in [facility], Patient is having an EGD today and is not yet medically cleared for dc; home is the goal and CM will continue to follow.
--- NOTE | 2024-02-28 12:22 | PC.NURSE ---
right upper arm iv intact. no leaking or pain. asymptomatic. flushed well.
--- NOTE | 2024-02-28 12:25 | P.CONAN_ITS ---
[facility] Active Problems Active Problems: All Active Problems Acute anemia (Acute) Acute GI bleeding (Acute) Abdominal pain (Acute) Colon polyps (Acute) Gastrointestinal bleeding (Acute) ICD (implantable cardioverter-defibrillator) in place (Acute) Ventricular tachycardia (Acute) NICM (nonischemic cardiomyopathy) (Acute) Morbid obesity (Acute) PAF (paroxysmal atrial fibrillation) (Acute) Thrombus of left atrial appendage (Acute) Alcoholic fatty liver (Acute) FARHEEN on CPAP (Acute) Alcohol abuse (Acute) HTN (hypertension) (Acute) (HFpEF) heart failure with preserved ejection fraction (Acute) Past Medical History Medical History History of cardioversion FARHEEN on CPAP Alcohol abuse HTN (hypertension) (HFpEF) heart failure with preserved ejection fraction Family History Family History Mother HTN (hypertension) Diabetes mellitus Father Diabetes mellitus HTN (hypertension) Family history of problems with anesthesia: No Surgical History Surgical History Status post ORIF of fracture of ankle S/P hip replacement History of Problems with Anesthesia: No Social History Social History Household Members: Significant Other and Children Household Members Other:: Girlfriend and daughter Housing: Apartment Are you a primary medicare sales executive to a significant other at home: No Do you presently have visiting nurse or other home services: No Alcohol intake: former Patient Tobacco Use Status: Never used Tobacco e-Cigarette/Vaping Use: Never Used Second Hand Smoke Exposure: No Substance Use Type: Marijuana Advance Directives Date on File: 01/25/21 service: No Current occupational status: retired Cognitive needs: No Hearing needs: No Vision needs: No Meds Allergies Allergy/AdvReac Type Severity Reaction Status Date / Time No Known Allergies Allergy Verified 02/23/24 19:11 Active Medications: Current Medications Acetaminophen (Acetaminophen 325 Mg Tablet) 650 mg PO Q6H PRN PRN Reason: Pain, Mild (Pain Scale 1-3), fever or headache Amiodarone HCl (Amiodarone Hcl 200 Mg Tablet) 200 mg PO DAILY [facility] Last Admin: 02/28/24 08:16 Dose: 200 mg Calcium Carbonate (Calcium Carbonate 750 Mg Tab.Chew) 750 mg PO Q4H PRN PRN Reason: Heartburn Lisinopril (Lisinopril 20 Mg Tablet) 20 mg PO DAILY [facility]; Protocol Last Admin: 02/28/24 08:16 Dose: 20 mg Magnesium Hydroxide (Milk Of Magnesia 30 Ml Oral.Susp) 30 ml PO DAILY PRN PRN Reason: Constipation Melatonin (Melatonin 3 Mg Tablet) 6 mg PO BEDTIME PRN PRN Reason: Insomnia Metoprolol Succinate (Metoprolol Succinate Er 100 Mg Tab.Er.24h) 100 mg PO DAILY [facility]; Protocol Last Admin: 02/28/24 08:15 Dose: 100 mg Morphine Sulfate (Morphine Sulfate 4 Mg/Ml Cartridge) 4 mg IVPUSH Q4H PRN; Protocol PRN Reason: Pain, Severe (Pain Scale 7-10) Last Admin: 02/27/24 16:00 Dose: 4 mg Ondansetron HCl (Ondansetron Hcl 4 Mg/2 Ml Vial) 4 mg IVPUSH Q8H PRN PRN Reason: Nausea and Vomiting Last Admin: 02/24/24 06:34 Dose: 4 mg Pantoprazole Sodium (Pantoprazole Sodium 40 Mg/10 Ml Vial) 40 mg IVPUSH BID@0630,1630 [facility] Last Admin: 02/28/24 05:56 Dose: 40 mg Sodium Chloride (0.9 % Sodium Chloride Flush 3 Ml Syringe) 3 ml IVFLUSH QSHIFT [facility] Last Admin: 02/28/24 08:16 Dose: 3 ml Home Medications ?Medication ?Instructions ?Recorded ?Confirmed ?Last Taken ?Type lisinopril 20 mg tablet 20 mg PO DAILY 04/10/23 02/24/24 02/23/24 History psyllium 1 packet PO DAILY 02/24/24 02/24/24 02/23/24 History Exam Height,Weight and Vital Signs: Height 6 ft 3 in Weight 119.9 kg Last Vital Signs Temp 97.8 F 02/28/24 12:04 Pulse 77 02/28/24 12:04 Resp 16 02/28/24 12:04 BP 131/92 H 02/28/24 12:04 Pulse Ox 95 02/28/24 12:04 O2 Del Method Room Air 02/28/24 12:04 Pertinent Lab Results Pertinent Lab Results: Laboratory Tests 02/23/24 02/23/24 02/24/24 20:04 22:03 00:33 WBC 9.0 RBC 3.34 L Hgb 8.1 L D Hct 26.9 L MCV 80.5 MCH 24.3 L MCHC 30.1 L RDW 15.8 Plt Count 222 MPV 11.0 Immature Gran % (Auto) 0.3 Neut % (Auto) 77.7 H Lymph % (Auto) 13.6 L [place] % (Auto) 7.5 Eos % (Auto) 0.6 Baso % (Auto) 0.3 Lymph # (Auto) 1.2 [place] # (Auto) 0.7 Eos # (Auto) 0.1 Baso # (Auto) 0.0 Abs Immat Gran (auto) 0.03 Absolute Neuts (auto) 7.0 Absolute Nucleated RBC 0.000 Nucleated RBC % (auto) 0.0 PT 16.3 H D INR 1.3 H APTT 28.3 Sodium 139 Potassium 4.1 Chloride 106 Carbon Dioxide 25 Anion Gap 12 BUN 9 Creatinine 0.87 Estim Creat Clear Calc 132.1 Estimated GFR > 60 Random Glucose 100 Calcium 9.4 Iron TIBC % Saturation Unsat Iron Binding Ferritin Total Bilirubin 1.1 H Direct Bilirubin 0.4 AST 16 ALT 6 Alkaline Phosphatase 80 Total Protein 6.8 Albumin 3.6 Lipase 147 H TSH Urine Color Yellow Urine Appearance Clear Urine pH 7.0 Ur Specific [place] >= 1.030 H Urine Protein 30 (1+) H Urine Glucose (UA) Negative Urine Ketones 15 Urine Blood Negative Urine Nitrite Negative Ur Leukocyte Esterase Negative Urine RBC 0-2 Urine WBC 0-5 Ur Squamous Epith Cells 0-2 Urine Bacteria None Seen Hyaline Casts 0-2 Stool Occult Blood NEGATIVE 02/24/24 02/25/24 02/26/24 05:17 05:54 06:07 WBC 9.3 9.5 7.2 RBC 3.59 L 3.62 L 3.59 L Hgb 8.5 L 8.6 L 9.2 L Hct 28.0 L 28.2 L 28.4 L MCV 78.0 L 77.9 L 79.1 L MCH 23.7 L 23.8 L 25.6 L MCHC 30.4 L 30.5 L 32.4 RDW 15.8 15.9 16.1 H Plt Count 226 217 239 MPV 10.7 11.2 12.2 Immature Gran % (Auto) 0.3 Neut % (Auto) 76.5 H Lymph % (Auto) 14.3 L [place] % (Auto) 8.3 Eos % (Auto) 0.3 Baso % (Auto) 0.3 Lymph # (Auto) 1.3 [place] # (Auto) 0.8 Eos # (Auto) 0.0 Baso # (Auto) 0.0 Abs Immat Gran (auto) 0.03 Absolute Neuts (auto) 7.1 Absolute Nucleated RBC 0.000 0.000 0.000 Nucleated RBC % (auto) 0.0 0.0 0.0 PT INR APTT Sodium 138 Potassium 3.5 Chloride 105 Carbon Dioxide 25 Anion Gap 12 BUN 8 L Creatinine 0.82 Estim Creat Clear Calc 140.2 Estimated GFR > 60 Random Glucose 94 Calcium 9.1 Iron 14 L TIBC 337 % Saturation 4 L Unsat Iron Binding 323 Ferritin 44 Total Bilirubin Direct Bilirubin AST ALT Alkaline Phosphatase Total Protein Albumin Lipase TSH 0.73 Urine Color Urine Appearance Urine pH Ur Specific [place] Urine Protein Urine Glucose (UA) Urine Ketones Urine Blood Urine Nitrite Ur Leukocyte Esterase Urine RBC Urine WBC Ur Squamous Epith Cells Urine Bacteria Hyaline Casts Stool Occult Blood Airway Mallampati Class: II TM Dist: >3cm Neck ROM: Full Heart: rrr Lungs: cta Assessment and Plan Assessment Anesthesia Assessment: Anesthesia Plan Discussed and Chart Reviewed Final Anesthetic Review Family History of Problems with Anesthesia: No History of Problems with Anesthesia: No NPO: Yes ASA Class: III Final Preanesthetic Review: No Changes in Pt Med Stat, Meds/Allgs Chart Reviewed and Consent Obtained/Reviewed Patient Risk: Intermediate Procedure Risk: Intermediate Anesthetic Plan Anesthetic Plan: MAC: Disposition: Standard PACU
--- NOTE | 2024-02-28 12:30 | P.PNGI_ITS ---
Subjective Subjective Date of Service: 02/28/24 Interval History: no abdominal pain ate food yesterday without any problems no melena no rectal bleeding Critical Care Time (minutes): 0 Physical Exam 2 Vital Signs: Vital Signs: Last Vital Signs Temp 97.8 F 02/28/24 12:04 Pulse 77 02/28/24 12:04 Resp 16 02/28/24 12:04 BP 131/92 H 02/28/24 12:04 Pulse Ox 95 02/28/24 12:04 O2 Del Method Room Air 02/28/24 12:04 BMI result Body Mass Index 33.0 EXAM: GENERAL: The patient is well developed and nontoxic. VITAL SIGNS:see workflow HEENT: Nonicteric sclerae, PERRLA, EOMI. Oropharynx clear. Moist mucous membranes. Conjunctivae appear well perfused. No thyroid mass. CHEST: Chest wall is nontender. HEART: Regular rate and rhythm without murmurs. LUNGS: Clear to auscultation bilaterally. ABDOMEN: Soft, positive bowel sounds, nontender, no organomegaly.no flank tenderness SKIN: No rash, no excessive bruising, petechiae, or purpura. NEUROLOGIC: Cranial nerves II-XII intact without motor/sensory deficit. Psych: normal affect Objective Data Labs 02/26/24 06:07 02/24/24 05:17 Procedures Date of Service Date of Service: 02/28/24 Progress Note: A&P Assessment and plan (1) Abdominal pain: Status: Acute Plan 1/ Upper abdominal pain resolved, ?mesenteritis, ?PUD PLAN: 1/ EGd today for further assessment --if neg can go home and o/p colonoscopy - can restart anti coagulants Time Spent With Patient Time: Total time managing care of this patient today ____ minutes. Quality Stroke Does the patient have a stroke diagnosis?: No VTE Prior VTE?: No VTE Risk Level:: Medical - moderate - high VTE Device Contraindication: N/A - Device Ordered VTE Drug Contraindication: Treatment Not Indicated
--- NOTE | 2024-02-28 12:30 | MHC.SHP ---
Pre-Procedural Eval Section A - 24 Hr Update-Section A only Date of Service: 02/28/24 The patient is an INPATIENT: Yes The patient has been examined within 24 hours of the surgical procedure. The History & Physical has been completed within 30 days and I have reviewed it.: Yes Section B - Complete if H&P > 30 days Chief Complaint: Abdominal Pain Allergies: Allergies Allergy/AdvReac Type Severity Reaction Status Date / Time No Known Allergies Allergy Verified 02/23/24 19:11 Plan I have reviewed the history and physical and performed a pertinent physical examination on my patient. No changes have occurred unless specified. Time Spent With Patient Time: Total time managing care of this patient today ____ minutes.
--- NOTE | 2024-02-28 13:25 | W.PM.OPN ---
Operative Note Operative Note Date of Service: 02/28/24 Narrative: Procedure Description: EGD Indication: abdominal pain, anemia Anesthesia: MAC FLEXIBLE TRANSORAL UPPER GASTROINTESTINAL ENDOSCOPY UPPER ENDOSCOPY Consent: Indications for the procedure and potential complications of bleeding, perforation, reaction to medications and missed diagnosis were discussed with the patient and informed consent was obtained. Instrument: Olympus GIF H 190 J mid size upper endoscope Monitoring: Vital signs and clinical assessment, continuous EKG monitoring, Pulse oximetry, Carbon Dioxide monitoring and blood pressure monitoring were done throughout the procedure. Procedure: The patient was placed in the left lateral decubitis position and pre-procedure medications were administered and a bite block was placed. The endoscope was inserted into the mouth and advanced under direct vision to the third part of duodenum. A careful inspection was made as the upper endoscope was withdrawn including a retroflexed examination of the proximal stomach; Findings and interventions are described below. Findings: Larynx:normal Esophagus: GE junction at 45 cm, diaphragm hiatus at 45 cm, normal mucosa Stomach: pale slightly atrophic mucosa . Biopsies were obtained. Grade 2 flap valve on retroflexed examination of the cardia. few fundic gland polyps noted Duodenum: Normal bulb and descending duodenum, bx taken Intervention: Biopsies as noted above, Impression/Findings: mild pallor, possible atrophy PLAN: await bx o/p colonoscopy
--- NOTE | 2024-02-28 15:26 | P.DS_ITS ---
DS: Providers Provider Date of Service: 02/28/24 Date of admission: 02/24/24 02:37 Primary care physician: YESY Martinez Consults: 02/24/24 03:05 Consult to Gastroenterology Routine Consulting Provider: Leanne Rahman Reason for consultation: ?GI bleed DS: Diagnosis Discharge Diagnosis (1) Acute anemia: Status: Acute (2) Abdominal pain: Status: Acute DS: Summary Hospital Course Hospital Course: History and physical as per admitting provider. This is a 58-year-old male with pertinent history of permanent atrial fibrillation on anticoagulation, congestive heart failure with preserved ejection fraction, ventricular tachycardia status post ICD, alcohol use disorder, FARHEEN on CPAP, hypertension who presents to the emergency department for evaluation of abdominal pain. Patient states it started 3 days prior to presentation. Initially it was intermittent but progressed to being constant. Not relieved with Tylenol at home. Had 2 episodes of nonbloody emesis. Patient also having constipation and has not had a bowel movement in 3 days. No hematochezia or melena. He was admitted in October and December in 2023 at [facility] with GI bleed. No fever, chills, chest discomfort, palpitations, shortness of breath, changes in urinary habits. No concern for alcohol withdrawal as per the patient. In the emergency department, hemoglobin found to be low at 8 and imaging concerning for GI bleed. 58-year-old man treated for abdominal pain. Initial abdominal CT showed embolization coils in the upper right mesentery, thickening of the wall of duode num with edema as the mesentery around the duodenum and at the root of the mesentery concerning for gastrointestinal hemorrhage. He was treated with IV PPI, his Eliquis was held and was on a clear liquid diet. He was seen by Gastroenterology who recommended a barium follow-through and EGD. EGD shows mild pallor with possible atrophy but normal mucosa to the stomach. Biopsies taken. Upper GI series showed normal small bowel transit time with normal- appearing small bowel including jejunum and ileum, large amount of contrast in the stomach possibly were presenting delayed emptying due to duodenal edema. His diet was advanced to regular and he did well without any nausea, vomiting, abdominal pain or diarrhea and has had bowel movements. He was also noted to have iron-deficiency anemia and received 2 doses of IV iron with a stable hematocrit not requiring blood transfusion. The plan is for patient to have outpatient colonoscopy and he should follow up with Gastroenterology in a few we eks. Patient will continue on PPI. Plan is to discharge patient home he is in agreement with this. Congestive heart failure with preserved ejection fraction. No decompensation during hospitalization FARHEEN. CPAP at bedtime Hypertension. Continue lisinopril and metoprolol Permanent atrial fibrillation. Continue metoprolol, amiodarone, may continue Eliquis Obesity class 1. Discussed importance of weight management as this may be contributing to worsening of other comorbidities Time Attestation Discharge Coordination Time (in mins): 32 Quality: Safe Use of Opioids Does Pt have an Active Cancer Diagnosis on the Problem List?: No Quality: Stroke Does the patient have a stroke diagnosis?: No Physical Exam Vital Signs: Vital Signs: Last Vital Signs Temp 96.9 F 02/28/24 14:00 Pulse 66 02/28/24 14:00 Resp 20 02/28/24 14:00 BP 145/83 H 02/28/24 14:00 Pulse Ox 100 02/28/24 14:00 O2 Del Method Room Air 02/28/24 14:00 BMI result Body Mass Index 33.0 Appearing in no acute distress head is normocephalic atraumatic eyes pupils are PERRLA sclera is anicteric mouth throat mucous membranes are intact and moist neck is supple no lymphadenopathy, no JVD noted lung sounds are clear to auscultation heart regular rate rhythm, clear S1, S2 positive bowel sounds, abdomen is soft, nontender neuro patient is alert x3, no focal deficits DS: Data Data Completed and Pending Completed studies during hospitalization [Text1]: Procedures Detoxification Services for Substance Abuse Treatment (01/24/21) Jew of Cardiac Rhythm, Single (05/17/21) Pending studies at discharge: Pending at discharge 02/28/24 13:22 Surgical [PTH] Routine Discharge Plan Discharge Anticipated Discharge Date/Time: 02/28/24 14:43 Patient Disposition: Home, Self-Care Discharge Diagnosis: Abdominal pain Chronic iron-deficiency anemia Referrals: Lisa Heard FNP [Primary Care Provider] - 1 Week Leanne Rahman MD [Physician] - 1 Week Discharge Medications: New omeprazole 20 mg capsule,delayed release(DR/EC) 20 mg PO DAILY Qty: 90 0RF Continued lisinopril 20 mg tablet 20 mg PO DAILY (DME) blood pressure monitor [Blood Pressure Kit] Kit See Rx Instructions .Route Qty: 1 0RF Rx Instructions: As directed Eliquis 5 mg tablet 5 mg PO BID 90 Days Qty: 180 1RF amiodarone 200 mg tablet 200 mg PO DAILY Qty: 90 3RF psyllium Packet 1 packet PO DAILY Rx Instructions: mix into at least 8 oz of water or juice before administering metoprolol succinate [Toprol XL] 100 mg tablet extended release 24 hr 100 mg PO DAILY Qty: 90 3RF Discharge Orders: Discharge Order (Routine); Ordered 02/28/24 Ordered By: Kellen Rodriguez Diet: Advance to usual diet Activity on Discharge: As tolerated Stand Alone Forms: Patient Portal Discharge page Print Language: Turkish Care Plan Goals: Follow-up with rehabilitation counsellor for outpatient colonoscopy Health Concerns: Abdominal pain Chronic iron-deficiency anemia Plan of Treatment: Follow-up with primary care provider as needed Take all medications as prescribed Assessment: See discharge summary
--- NOTE | 2024-02-28 15:43 | MHC.CM.PN ---
Patient is now medically cleared for dc to home today, self care. CM met with Patient at bedside and addressed IMM with him, providing Patient with the original and a copy has been placed on the chart.
== END 2024-02-28 16:44 | disposition home or self-care (01) | DRG 378 ==
LOC: HO.ED 02-24 01:01 → HO.EDOVER 02-24 02:40 → HO.IMC 02-24 15:52
PROVIDERS: Hospitalist; Internal Medicine Gastroenterology; Physician Assistant; Physician Assistant Medical; Admitting Provider Student in an Organized Health Care Education/Training Program; Emergency Provider Emergency Medicine Emergency Medical Services; PCP Nurse Practitioner Family; Visit Provider Nurse Practitioner Acute Care
PROC: 0DJ08ZZ Inspection of Upper Intestinal Tract, Via Natural or Artificial Opening Endoscopic (ICD-10-PCS; CPT 43235; principal; 2024-02-28 14:10)
DX: K29.41 Chronic atrophic gastritis with bleeding (principal); I47.20 Ventricular tachycardia, unspecified; I50.32 Chronic diastolic (congestive) heart failure; I48.21 Permanent atrial fibrillation; R10.9 Unspecified abdominal pain; I11.0 Hypertensive heart disease with heart failure; K31.7 Polyp of stomach and duodenum; G47.33 Obstructive sleep apnea (adult) (pediatric); E66.8 Other obesity; Z68.33 Body mass index [BMI] 33.0-33.9, adult; K59.00 Constipation, unspecified; D50.9 Iron deficiency anemia, unspecified; Z71.3 Dietary counseling and surveillance; F10.11 Alcohol abuse, in remission; Z95.810 Presence of automatic (implantable) cardiac defibrillator; Z79.01 Long term (current) use of anticoagulants; Z79.899 Other long term (current) drug therapy
CPT/HCPCS: 36415; 74178; 74250; 80048; 80076; 81001; 82272; 82728; 83540; 83690; 84443; 85025; 85027; 85610; 85730; 88305; 88342; 93005; 94660; 99285; J1756; J2270; J2405; J2470; J2704; Q9967

== ENCOUNTER → 2024-02-24 00:59 | Outpatient (BNV) | payer OTHER, SELFPAY | PROVIDERS: Admitting Provider Student in an Organized Health Care Education/Training Program; Emergency Provider Emergency Medicine Emergency Medical Services; PCP Nurse Practitioner Family; Visit Provider Internal Medicine Cardiovascular Disease | DX: R94.31 Abnormal electrocardiogram [ECG] [EKG] (principal) | CPT/HCPCS: 93010 ==

== ENCOUNTER 2024-02-24 02:37 | Outpatient (BNV) | payer OTHER, SELFPAY | END 2024-02-26 09:00 | PROVIDERS: Admitting Provider Student in an Organized Health Care Education/Training Program; Emergency Provider Emergency Medicine Emergency Medical Services; PCP Nurse Practitioner Family; Visit Provider Physician Assistant Surgical | DX: R10.10 Upper abdominal pain, unspecified (principal) | CPT/HCPCS: 74250 ==

== ENCOUNTER → 2024-02-24 02:37 | Outpatient (BNV) | payer OTHER, SELFPAY | PROVIDERS: Admitting Provider Student in an Organized Health Care Education/Training Program; Emergency Provider Emergency Medicine Emergency Medical Services; PCP Nurse Practitioner Family; Visit Provider Internal Medicine Gastroenterology | DX: R10.10 Upper abdominal pain, unspecified (principal); D64.9 Anemia, unspecified; K31.7 Polyp of stomach and duodenum | CPT/HCPCS: 43239; 99222; 99232 ==

== ENCOUNTER → 2024-02-24 02:37 | Outpatient (BNV) | payer OTHER, SELFPAY | PROVIDERS: Admitting Provider Student in an Organized Health Care Education/Training Program; Emergency Provider Emergency Medicine Emergency Medical Services; PCP Nurse Practitioner Family; Visit Provider Student in an Organized Health Care Education/Training Program | DX: D64.9 Anemia, unspecified (principal); R10.10 Upper abdominal pain, unspecified | CPT/HCPCS: 99223; 99232; 99239; 99499 ==

== ENCOUNTER 2024-03-06 09:32 | Outpatient (AMB) | payer OTHER, SELFPAY ==
[2024-03-06 09:47] VITALS: BP 130/86; PULSE 70; O2SAT 98; BMI 32.9
--- NOTE | 2024-03-06 09:47 | A.OFFPC_ITS ---
Vital Signs 03/06/24 09:47 Height 6 ft 3 in Weight 263 lb 0.4 oz BMI 32.9 BP 130/86 Blood Pressure Location Lt brachial Position Sitting Pulse 70 Pulse Source Pulse Oximeter Pulse Oximetry (%) 98 Oxygen Delivery Method Room Air Intake Visit Reasons: TCM ABDOMEN PAIN DISCHARGED ON 02/27 Construction Teacher Required: No Allergies No Known Allergies Allergy (Verified 03/06/24 09:50) Medication List - Last Reconciled 03/06/24 by Liliane Mata PA-C amiodarone 200 mg PO DAILY apixaban (Eliquis) 5 mg PO BID 90 days blood pressure monitor (Blood Pressure Kit) As directed lisinopril 20 mg PO DAILY metoprolol succinate ER (Toprol XL) 100 mg PO DAILY omeprazole 20 mg PO DAILY psyllium 1 packet PO DAILY Tobacco use date assessed: 02/15/24 Dental Screening Dental Screen Date: 02/15/24 HPI TCM ABDOMEN PAIN DISCHARGED ON 02/27 HPI Details Patient is a 58-year-old male with past medical history of hypertension, alcohol use disorder, atrial fibrillation on Eliquis, and ICM with a pacemaker, heart failure with preserved eF, hx of GI bleed who presents today for hospital discharge follow up. In review of the notes, patient was seen in [facility] 02/24/2024 for abdominal pain hemoglobin found to be low at 8 and imaging concerning for GI bleed. Abdominal CT showed findings concerning for GI hemorrhage treated with IV PPI, Eliquis was held and placed on a clear liquid diet.?EGD was completed with biopsies.?Received 2 doses of IV iron.?Patient was discharged home 02/28/2024 to follow up with GI and continue on the PPI. Patient states he is feeling generally well he no longer has abdominal pain and has denied seeing any blood in the stool and denies vomiting. He is scheduled to follow up with his analytical lab analyst this week and Gastroenterology next week for recommended colonoscopy. He is concerned about his blood pressures as they have been elevated in the past and would like to have a blood pressure monitor. TCM TCM Information Date of Discharge 02/28/24 Discharged From [facility] Medical History History of cardioversion FARHEEN on CPAP Alcohol abuse HTN (hypertension) (HFpEF) heart failure with preserved ejection fraction Surgical History Status post ORIF of fracture of ankle S/P hip replacement Family History Mother HTN (hypertension) Diabetes mellitus Father Diabetes mellitus HTN (hypertension) Social History Household Members: Significant Other and Children Household Members Other:: Girlfriend and daughter Housing: Apartment Are you a primary health care facility administrator to a significant other at home: No Do you presently have visiting nurse or other home services: No Alcohol intake: former Patient Tobacco Use Status: Never used Tobacco e-Cigarette/Vaping Use: Never Used Second Hand Smoke Exposure: No Substance Use Type: Marijuana Advance Directives Date on File: 01/25/21 service: No Current occupational status: retired Cognitive needs: No Hearing needs: No Vision needs: No Questionnaire Thrive Questionnaire Date Thrive assessed: 02/24/24 AUDIT C Alcohol Use Questionnaire (AUDIT-C) 1. How often do you have a drink containing alcohol?: 2-3 times a week 2. How many drinks containing alcohol do you have on a typical day when you are drinking?: 1 or 2 3. How often do you have six or more drinks on one occasion?: Never Total Score: 3 DIEUDONNE-7 AMB Questionnaire DIEUDONNE-7 Date DIEUDONNE - 7 assessed: 05/12/23 Source: Developed by Drs. Ace Beckwith, Evelyne Ramirez, Carlos Garcia and colleagues, with an educational yaz from [employer]. Review of Systems Const Denies body aches, Denies chills, Denies fever(s) and Denies poor appetite Eyes Reports no additional complaints ENT Denies dizziness Card Denies chest pain, Denies syncope, Denies lightheadedness and Denies dyspnea Resp Denies dyspnea GI Denies abdominal pain, Denies constipation, Denies diarrhea, Denies nausea and Denies vomiting Reports no additional complaints Musc Reports no additional complaints and Denies abnormal gait Skin/Breast Reports system reviewed and no additional complaints, except as documented Neuro Denies abnormal gait, Denies dizziness and Denies syncope Psych Reports no additional complaints Physical exam (Primary Care) Vital Signs: Oxygen Delivery Method Room Air 03/06/24 09:47 Tobacco/Smoking Status: Tobacco use Status Tobacco use date assessed 02/15/24 03/06/24 09:48 Patient Tobacco Use Status Never used Tobacco 03/06/24 09:48 Tobacco use type 02/28/23 13:31 e-Cigarette/Vaping Use Never Used 03/06/24 09:48 Thrive Assessment: Date of Thrive Assessment Date Thrive assessed 02/24/24 03/06/24 09:48 Const General: cooperative, healthy appearing, comfortable and no acute distress Orientation/consciousness: patient oriented x3 HENMT Head: Yes normocephalic Ears: hearing grossly normal bilaterally General nose exam: Normal external nose present Eyes General: appearance normal, both eyes and all related structures Conjunctivae: conjunctivae normal Neck Neck: Yes full ROM and Yes no lymphadenopathy Resp Effort & Inspection: normal respiratory effort Auscultation: clear to auscultation bilaterally, no crackles, no rales, no rhonchi and no wheezes Cardio Rate: regular rate Rhythm: regular rhythm GI Palpation (GI): Soft to palpation, not firm, nontender, no guarding and not rigid Skin General skin exam: no rashes or lesions noted Neuro General: patient oriented x3 Gait exam (Neuro): Normal gait present Extrem General: Yes normal to inspection, Yes full ROM and No edema Psych Affect: normal affect Attitude: cooperative Insight: Good insight present (Psych) Judgement: Good judgement present (Psych) Assessment and Plan Assessment & Plan (1) Acute GI bleeding: Code(s): K92.2 - Gastrointestinal hemorrhage, unspecified Plan: Patient denies any symptoms of abdominal pain or blood in the stool or vomit. Scheduled to follow up with Gastroenterology next week. Continue taking the PPI and avoid NSAIDs. Follow up in 3 months. (2) Acute anemia: Code(s): D64.9 - Anemia, unspecified Plan: Stable on discharge from the hospital. We will monitor on routine blood work. Advised patient if he begins to feel lightheaded or dizzy to return to the ER. (3) HTN (hypertension): Code(s): I10 - Essential (primary) hypertension Plan: Blood pressure at goal today 130/86. Ordered for blood pressure cuff for monitoring at home. Follow up in 3 months. Plan This note was constructed using voice recognition software. While every effort has been made to ensure accuracy and occupational therapist, still areas may have been included sometimes these areas may affect the content or meeting of the given symptoms. Total time spent caring for the patient today was 30 minutes. This includes time spent before the visit reviewing the chart, time spent during the visit, and time spent after the visit and documentation. Medications: New miscellaneous medical supply (Blood Pressure Cuff) As directed 1 ea 0RF Coding Level of Care Code Est Pt Level 4 (66759) Diagnoses Acute GI bleeding K92.2 Acute anemia D64.9 HTN (hypertension) I10
== END 2024-03-06 10:13 | disposition home or self-care (01) ==
PROVIDERS: PCP Nurse Practitioner Family
DX: K92.2 Gastrointestinal hemorrhage, unspecified (principal); D64.9 Anemia, unspecified; I10 Essential (primary) hypertension
CPT/HCPCS: 99214

== ENCOUNTER → 2024-03-07 23:59 | Outpatient (BNV) | payer OTHER, SELFPAY ==
--- NOTE | 2024-03-20 12:02 | A.OFFVIS_ITS ---
Intake Visit Reasons: remote HF monitoring- [employer] Allergies No Known Allergies Allergy (Verified 03/15/24 09:52) [facility] Medical History History of cardioversion FARHEEN on CPAP Alcohol abuse HTN (hypertension) (HFpEF) heart failure with preserved ejection fraction Surgical History History of esophagogastroduodenoscopy (EGD) Hx of colonoscopy Status post ORIF of fracture of ankle S/P hip replacement Family History (Updated 03/15/24 @ 09:56 by ALEJANDRO Luque) Mother HTN (hypertension) Diabetes mellitus Father Diabetes mellitus HTN (hypertension) Maternal Uncle Colon cancer Social History Household Members: Significant Other and Children Household Members Other:: Girlfriend and daughter Housing: Apartment Are you a primary day care worker to a significant other at home: No Do you presently have visiting nurse or other home services: No Alcohol intake: former Patient Tobacco Use Status: Never used Tobacco e-Cigarette/Vaping Use: Never Used Second Hand Smoke Exposure: No Substance Use Type: Marijuana Advance Directives Date on File: 01/25/21 service: No Current occupational status: retired Cognitive needs: No Hearing needs: No Vision needs: No Office Procedures Cardiac Device Check Cardiac Device Check Details: Date of service- 03/07/2024; based on impedance data and physiological variables, there is possible OptiVol fluid accumulation from 13 of February to o [facility]. [id number] Cardiac Device Interrogation, cardio physiologic monitor Procedure code (CPT) selection complete Assessment & Plan Assessment & Plan (1) PAF (paroxysmal atrial fibrillation): Code(s): I48.0 - Paroxysmal atrial fibrillation Category: Medical Plan x Coding Level of Care Code Procedure Only Diagnoses PAF (paroxysmal atrial fibrillation) I48.0 CPT Codes Cardiac Device Check - Cardiac Device 15: [id number] Cardiac Device Interrogation, cardio physiologic monitor ([id number])
== END ==
PROVIDERS: Visit Provider Internal Medicine
DX: I48.0 Paroxysmal atrial fibrillation (principal); Z95.818 Presence of other cardiac implants and grafts
CPT/HCPCS: 93297

== ENCOUNTER 2024-03-15 09:48 | Outpatient (AMB) | payer OTHER, SELFPAY ==
--- NOTE | 2024-03-15 09:49 | MHC.OFFVIS ---
Vital Signs 03/15/24 09:50 Height 6 ft 3 in Weight 260 lb 2.327 oz BMI 32.5 BP 132/76 Blood Pressure Location Lt brachial Position Sitting Pulse 70 Intake Visit Reasons: GI hemorrhage, [place] [facility] [place] Intake Note: Nitesh presents in the office as a GI hemorrhage. CC: He is not actively bleeding at this time. Suffers from constipation and occasional pains in the stomach. Pharmaceutical Specialty Representative Required: No Allergies No Known Allergies Allergy (Verified 03/15/24 09:52) HPI HPI GI hemorrhage, referred by [facility] Cardio: Details: 58-year-old male with pertinent history of permanent atrial fibrillation on anticoagulation, congestive heart failure with preserved ejection fraction, ventricular tachycardia status post ICD, alcohol use disorder, FARHEEN on CPAP, hypertension who I am seeing for f/u for anemia and abdominal pain. RECAP: seen as in-patient noted sudden onset burning type of epigastric pain radiating into the mid abdomen Pain is, 8/10 in severity with poor appetite, He says he had similar pain 10/2023 and was sent to [facility],. per scanned notes he had embolization of GDA due to alisha duodenal hematoma. He had a repeat admission in December and had egd and colo-he was told here was a polyp present but not removed. he was not put on PPI. HGB slightly lower than prior hb 11-->9 g/dl. Lipase mildly elevated 147 Ct imaging with colitis seen, and mid abdominal mesenteric haziness EGD:02/2024- normal INTERIM: feeling well one episode of mild abdominal pain few days back, gone now no melena no rectal bleeding no nausea or vomiting no fever EXAM: GENERAL: The patient is well developed and nontoxic. VITAL SIGNS:see workflow HEENT: Nonicteric sclerae, PERRLA, EOMI. Oropharynx clear. Moist mucous membranes. Conjunctivae appear well perfused. No thyroid mass. CHEST: Chest wall is nontender. HEART: Regular rate and rhythm without murmurs. LUNGS: Clear to auscultation bilaterally. ABDOMEN: Soft, positive bowel sounds, nontender, no organomegaly.no flank tenderness SKIN: No rash, no excessive bruising, petechiae, or purpura. NEUROLOGIC: Cranial nerves II-XII intact without motor/sensory deficit. Psych: normal affect A/P: 1/ anemia, from GI bleeding 2/ abdominal pain posisbly from mesenteritis, PLAN: 1/ COlonoscopy, with adult scope, bariatric bed, hold eliquis 2 d before 2/ recheck cbc and iron levels, might need iron supp PFSH Medical History History of cardioversion FARHEEN on CPAP Alcohol abuse HTN (hypertension) (HFpEF) heart failure with preserved ejection fraction Surgical History History of esophagogastroduodenoscopy (EGD) Hx of colonoscopy Status post ORIF of fracture of ankle S/P hip replacement Family History (Updated 03/15/24 @ 09:56 by ALEJANDRO Luque) Mother HTN (hypertension) Diabetes mellitus Father Diabetes mellitus HTN (hypertension) Maternal Uncle Colon cancer Social History Household Members: Significant Other and Children Household Members Other:: Girlfriend and daughter Housing: Apartment Are you a primary respiratory care specialist to a significant other at home: No Do you presently have visiting nurse or other home services: No Alcohol intake: former Patient Tobacco Use Status: Never used Tobacco e-Cigarette/Vaping Use: Never Used Second Hand Smoke Exposure: No Substance Use Type: Marijuana Advance Directives Date on File: 01/25/21 service: No Current occupational status: retired Cognitive needs: No Hearing needs: No Vision needs: No Physical Exam Vital Signs: Last Vital Signs Pulse 70 03/15/24 09:50 BP 132/76 03/15/24 09:50 BMI result Body Mass Index 32.5 Assessment & Plan Assessment & Plan (1) Gastrointestinal bleeding: Code(s): K92.2 - Gastrointestinal hemorrhage, unspecified Category: Medical Qualifiers: GI bleed type/associated pathology: unspecified gastrointestinal hemorrhage type Qualified Code(s): K92.2 - Gastrointestinal hemorrhage, unspecified Plan: see above Orders: Orders Vitamin B12 and Folate Today K92.2 - Gastrointestinal hemorrhage, unspecified Complete Blood Count Auto Diff Today K92.2 - Gastrointestinal hemorrhage, unspecified Ferritin Today K92.2 - Gastrointestinal hemorrhage, unspecified Coding Level of Care Code Est Pt Level 4 (59632) Diagnoses Gastrointestinal hemorrhage, unspecified gastrointestinal hemorrhage type K92.2 GI bleed type/associated pathology: unspecified gastrointestinal hemorrhage type
[2024-03-15 09:50] VITALS: BP 132/76; PULSE 70; BMI 32.5
== END 2024-03-15 10:40 | disposition home or self-care (01) ==
PROVIDERS: PCP Nurse Practitioner Family; Visit Provider Internal Medicine Gastroenterology
DX: K92.2 Gastrointestinal hemorrhage, unspecified (principal)
CPT/HCPCS: 99214

== ENCOUNTER 2024-03-15 09:48 | Outpatient (REF) | payer OTHER, SELFPAY ==
[2024-03-15 11:06] LABS: Basophils Absolute Auto 0.1 X10*3/uL (0.0-0.2); Eosinophils Absolute Auto 0.1 X10*3/uL (0.0-0.4); Eosinophils Percent Auto 2.2 % (0-4); Hematocrit 34.6 % (42.0-52.0); Hemoglobin 10.4 g/dl (14.0-18.0); Imm Gran Abs Auto 0.02 X10*3/uL (0.00-0.03); Imm Gran Pct Auto 0.3 % (0.0-0.4); Lymphocytes Absolute Auto 1.9 X10*3/uL (1.2-4.9); Lymphocytes Percent Auto 30.8 % (20-40); MANUAL DIFF FLAG NO; Mean Corpuscular HGB Conc 30.1 g/dl (31.0-36.0); Mean Corpuscular Hemoglobin 23.9 pg (27.0-33.0); Mean Corpuscular Volume 79.5 fL (80.0-98.0); Mean Platelet Volume 11.4 fL (9.4-12.4); Monocytes Absolute Auto 0.6 X10*3/uL (0.1-1.2); Monocytes Percent Auto 9.8 % (2-11); Neutrophils Absolute Auto 3.5 x10*3/uL (2.0-8.3); Neutrophils Percent Auto 55.9 % (45-73); Platelet Count 347 X10*3/uL (160-400); Red Blood Count 4.35 X10*6/uL (4.60-5.80); Red Cell Distribution Width 17.1 % (11.0-16.0); White Blood Count 6.2 X10*3/uL (4.8-10.8)
[2024-03-15 12:09] LABS: Alanine Aminotransferase 14 U/L (0-40); Albumin Level 3.8 g/dL (3.5-5.0); Alkaline Phosphatase 81 U/L (39-117); Anion Gap 7 (12-20); Aspartate Amino Transferase 24 U/L (5-37); Bilirubin Total 0.6 mg/dL (0.0-1.0); Blood Urea Nitrogen 10 mg/dL (9-16); Calcium 9.5 mg/dL (8.4-10.2); Carbon Dioxide 30 mmol/L (22-29); Chloride 105 mmol/L (96-108); Cholesterol 159 mg/dL (<200); Estimated Glomerular Filt Rate > 60; Glucose Fasting 98 mg/dL (60-99); HDL Cholesterol 33 mg/dL (>40); LDL Cholesterol Calculated 108 mg/dL (<100); Potassium 3.8 mmol/L (3.3-5.1); Sodium 138 mmol/L (135-145); Total Protein 7.1 g/dL (6.5-8.0); Triglycerides 91 mg/dL (<150)
[2024-03-15 12:27] LABS: Ferritin 51 ng/mL (20-250)
[2024-03-15 12:52] LABS: Folate 11.8 ng/mL (> or = 4.0); Prostate Specific Antigen Scr 0.97 ng/mL (<0.05-4.0); Vitamin B12 374 pg/mL (200-900)
== END 2024-03-15 09:49 | disposition home or self-care (01) ==
LOC: HO.LAB 09:48
PROVIDERS: Absent Provider Physician Assistant; PCP Nurse Practitioner Family; Visit Provider Internal Medicine Gastroenterology
DX: I48.0 Paroxysmal atrial fibrillation (principal); I10 Essential (primary) hypertension; Z76.89 Persons encountering health services in other specified circumstances; K92.2 Gastrointestinal hemorrhage, unspecified; Z12.5 Encounter for screening for malignant neoplasm of prostate
CPT/HCPCS: 36415; 80053; 80061; 82607; 82728; 82746; 84153; 85025; 99212

== ENCOUNTER 2024-03-21 01:50 | Emergency (ER) | payer OTHER, SELFPAY ==
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
--- NOTE | ~2024-03-21 | XR_ITS ---
EXAMINATION: XR ANKLE, LEFT CLINICAL INFORMATION: Pain, swelling COMPARISON: None available. TECHNIQUE: AP, lateral, and mortise views of the left ankle. FINDINGS: Articular alignment across the ankle appears anatomic. There is severe joint space narrowing at the ankle and hypertrophic spurring as well as subchondral cysts. Surrounding soft tissue swelling is noted. No acute fracture is seen. XR/XR ankle LT min 3V IMPRESSION: No acute findings identified. Severe arthritic changes of the ankle. Electronically signed by: Mitch Ybarra MD 03/21/2024 02:57 AM EDT
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
[2024-03-21 01:53] VITALS: BP 145/85; PULSE 71; RESP 18; TEMP 36.7; O2SAT 100; BMI 32.5
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
[2024-03-21] MEDS: oxyCODONE HCl Immed Release 5 MG TABLET PO (05:48)
[2024-03-21 05:50] VITALS: BP 145/85; PULSE 71; RESP 18; TEMP 36.7; O2SAT 100
== END 2024-03-21 05:51 | disposition home or self-care (01) ==
PROVIDERS: Emergency Provider Emergency Medicine; PCP Nurse Practitioner Family
DX: S09.90XA Unspecified injury of head, initial encounter (principal); S52.571A Other intraarticular fracture of lower end of right radius, initial encounter for closed fracture; S90.02XA Contusion of left ankle, initial encounter; Y04.2XXA Assault by strike against or bumped into by another person, initial encounter; I11.0 Hypertensive heart disease with heart failure; I50.30 Unspecified diastolic (congestive) heart failure; Z79.01 Long term (current) use of anticoagulants; Z79.899 Other long term (current) drug therapy; Y93.89 Activity, other specified; Y92.480 Sidewalk as the place of occurrence of the external cause; Y99.9 Unspecified external cause status
CPT/HCPCS: 29125; 70450; 72125; 73110; 73130; 73610; 99283; 99284

== ENCOUNTER 2024-03-26 12:22 | Outpatient (REF) | payer OTHER, SELFPAY ==
--- NOTE | ~2024-03-26 | XR_ITS ---
EXAMINATION: XR WRIST, RIGHT CLINICAL INFORMATION: Pain in the right wrist COMPARISON: Prior x-ray 03/21/2024 TECHNIQUE: PA, lateral, and oblique views of the right wrist. FINDINGS: Moderately comminuted intra-articular fracture of the distal radius with unchanged alignment compared to prior exam. There is some joint depression of the dominant anterior fragments proximally 3 mm. There is a mild volar tilt to the articular surface related to fracture. Severe osteoarthritis of the 1st carpometacarpal joint. XR/XR wrist RT w scaphoid IMPRESSION: Comminuted intra-articular fracture of the distal radius with unchanged alignment. Electronically signed by: Alexis Mcallister MD 04/10/2024 07:16 AM EDT
== END 2024-03-26 12:23 | disposition home or self-care (01) ==
LOC: HO.HOSX 12:22
PROVIDERS: Visit Provider Orthopaedic Surgery
DX: M25.531 Pain in right wrist (principal); S52.201A Unspecified fracture of shaft of right ulna, initial encounter for closed fracture; M19.072 Primary osteoarthritis, left ankle and foot; Z95.810 Presence of automatic (implantable) cardiac defibrillator; I48.0 Paroxysmal atrial fibrillation
CPT/HCPCS: 73110; 99202

== ENCOUNTER 2024-03-26 12:56 | Outpatient (AMB) | payer OTHER, SELFPAY ==
[2024-03-26 13:17] VITALS: BMI 32.4
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
== END 2024-03-26 14:37 | disposition home or self-care (01) ==
PROVIDERS: PCP Nurse Practitioner Family; Visit Provider Orthopaedic Surgery
DX: S52.501A Unspecified fracture of the lower end of right radius, initial encounter for closed fracture (principal); M19.072 Primary osteoarthritis, left ankle and foot; Z95.810 Presence of automatic (implantable) cardiac defibrillator; I48.0 Paroxysmal atrial fibrillation
CPT/HCPCS: 99204

== ENCOUNTER 2024-03-27 13:25 | Outpatient (REF) | payer OTHER, SELFPAY ==
--- NOTE | ~2024-03-27 | CT_ITS ---
EXAMINATION: CT WRIST WITHOUT CONTRAST, RIGHT CLINICAL INFORMATION: Fracture of the right radius. Question of occult scaphoid wrist fracture. COMPARISON: X-rays of the right wrist March 2024. TECHNIQUE: CT scan of the right wrist was performed with reconstruction imaging performed at the acquisition workstation. This CT examination was performed using dose optimization techniques as appropriate, variously including the following: *Automated exposure control *Adjustment of mA and/or kV according to patient size (this includes techniques or standardized protocols for targeted exams where dose is matched to indication/reason for exam; i.e. extremities or head) *Use of iterative reconstruction technique DLP: 141 mGy-cm FINDINGS: There is a severely comminuted displaced intra-articular fracture of the distal radius. The fracture begins 2.5 cm proximal to the articular surface of the radiocarpal compartment. There are numerous fracture lines extending in the coronal and sagittal/sagittal oblique planes extending through the articular surface. The fracture results in up to 5 mm of joint depression. There is an osteochondral fragment measuring approximately 14 mm transverse and 16 mm AP which is depressed and anteriorly displaced with a fracture gap measuring up to 5 mm. There is slight volar tilt through the articular surface related to the joint depression and joint displacement. There is a central volar cortical fragment rotated 90 degrees resting within the anterior proximal fracture line. See sagittal image 32 series 7. The fracture extends to the radiocarpal joint but does not extend to the distal radioulnar joint. The fracture however extends almost the full width of the radius extending from the radial styloid to the lunate fossa. Additional findings: There is chondrocalcinosis. Distal radioulnar joint: There is [id number] osteoarthritis with marginal osteophytes, subchondral cystic change and nonuniform joint space narrowing. 1st carpometacarpal joint: There is severe osteoarthritis with marked joint space narrowing, marginal osteophytes, subchondral cysts and a loose body present volar. Mild osteoarthritis of the 5th metacarpophalangeal joint manifested by marginal osteophytes and small subchondral cysts. There is mild generalized soft tissue swelling/edema surrounding the area of the fracture. CT/CT wrist RT wo IV con IMPRESSION: 1. Severely comminuted displaced intra-articular fracture of the distal radius. 2. Osteoarthritis. 3. Chondrocalcinosis. 4. Osteoarthritis of the distal radioulnar joint, 1st carpometacarpal joint and 5th metacarpophalangeal joint. Electronically signed by: Alexis Mcallister MD 03/27/2024 03:57 PM EDT RP
== END 2024-03-27 13:26 | disposition home or self-care (01) ==
LOC: HO.CT 13:25
PROVIDERS: PCP Nurse Practitioner Family; Visit Provider Orthopaedic Surgery
DX: S52.501A Unspecified fracture of the lower end of right radius, initial encounter for closed fracture (principal)
CPT/HCPCS: 73200

== ENCOUNTER 2024-04-01 06:11 | Day surgery (SDC) | payer OTHER, SELFPAY ==
[2024-04-01] VITALS (9 sets, daily range): BP systolic 144–170; BP diastolic 68–97; PULSE 51–65; RESP 16–18; TEMP 36.2–37; O2SAT 93–97; BMI 33.0; BMI 33.2
[2024-04-01] MEDS: Lactated Ringers 1,000 ML 50 ML IVCONT (06:57)
--- NOTE | 2024-04-01 07:20 | HO.ANESPROP2 ---
Documented by User: Tiffani Mujica NP 03/28/24 12:23 HPI - Anesthesia Eval Consult details Narrative: 58yo M for Right Radius Distal Fracture ORIF,possible Scaphoid Follows [facility] Cardiology. OK to proceed and hold eliquis (afib) Medtronic ICD in situ. NICM ? ETOH abuse PMFSH Active Problems Active Problems: All Active Problems Osteoarthritis of left ankle (Acute) Distal radius fracture, right (Acute) Distal radius fracture, left (Acute) Colon polyps (Acute) Gastrointestinal bleeding (Acute) ICD (implantable cardioverter-defibrillator) in place (Acute) Ventricular tachycardia (Acute) NICM (nonischemic cardiomyopathy) (Acute) Morbid obesity (Acute) PAF (paroxysmal atrial fibrillation) (Acute) Thrombus of left atrial appendage (Acute) Alcoholic fatty liver (Acute) FARHEEN on CPAP (Acute) Alcohol abuse (Acute) HTN (hypertension) (Acute) (HFpEF) heart failure with preserved ejection fraction (Acute) Past Medical History Medical History History of cardioversion FARHEEN on CPAP Alcohol abuse HTN (hypertension) (HFpEF) heart failure with preserved ejection fraction Family History Family History Mother HTN (hypertension) Diabetes mellitus Father Diabetes mellitus HTN (hypertension) Maternal Uncle Colon cancer Family history of problems with anesthesia: No Surgical History Surgical History History of esophagogastroduodenoscopy (EGD) Hx of colonoscopy Status post ORIF of fracture of ankle S/P hip replacement History of Problems with Anesthesia: No Social History Social History (Updated 03/26/24 @ 13:26 by ALEJANDRO Bagley) Household Members: Significant Other and Children Household Members Other:: Girlfriend and daughter Housing: Apartment Are you a primary home care nurse to a significant other at home: No Do you presently have visiting nurse or other home services: No Alcohol intake: former Patient Tobacco Use Status: Never used Tobacco e-Cigarette/Vaping Use: Never Used Second Hand Smoke Exposure: No Use of substances other than those prescribed or required for medical reasons: Yes Substance Use Type: Marijuana Substance Use Type Other:: Gummies Are you DNR?: No Advance Directives: No Advance Directives Information Provided: Yes Advance Directives Date on File: 01/25/21 Recently lost weight without trying: No service: No Current occupational status: retired Current occupation: rt handed Cognitive needs: No Hearing needs: No Vision needs: No Meds Allergies Allergy/AdvReac Type Severity Reaction Status Date / Time No Known Allergies Allergy Verified 03/26/24 13:25 Home Medications ?Medication ?Instructions ?Recorded ?Confirmed ?Last Taken ?Type lisinopril 20 mg tablet 20 mg PO DAILY 04/10/23 03/06/24 02/23/24 History psyllium 1 packet PO DAILY 02/24/24 03/06/24 02/23/24 History Exam Pertinent Lab Results Pertinent Lab Results: Laboratory Tests 03/15/24 10:31 WBC 6.2 Hgb 10.4 L Hct 34.6 L D Plt Count 347 D Sodium 138 Potassium 3.8 Chloride 105 Carbon Dioxide 30 H BUN 10 Creatinine 0.97 Narrative Narrative: EKG 02/2024 Vent. Rate : 060 BPM Atrial Rate : 060 BPM P-R Int : 178 ms QRS Dur : 088 ms QT Int : 508 ms P-R-T Axes : 062 -10 033 degrees QTc Int : 508 ms Normal sinus rhythm Prolonged QT Abnormal ECG When compared with ECG of 14-OCT-2023 17:55, No significant change was found Cardiac Device Check Details: Date of service- 03/07/2024; based on impedance data and physiological variables, there is possible OptiVol fluid accumulation from 13 of February to ongoing. Cardiac catheterization 02/2023 with normal coronary arteries. Cardiac MRI with LVEF of 55%. No wall motion abnormalities. Subendocardial delayed enhancement in basal to mid anterolateral segments suggesting fibrosis from possible prior myocarditis. Other findings suggestive of diffuse myocardial fibrosis. ECHO 2022 Conclusions: - 1. Normal LV ejection fraction of 65-70% with mild LVH with grade 2 diastolic dysfunction 2. Moderately dilated left atrium 3. Calcific aortic and mitral valve changes with normal cardiac valvular Dopplers next 4. Moderately elevated right ventricular systolic pressure 5. Mildly dilated ascending aorta 4.3 cm 6. No gross pericardial effusion Assessment and Plan Assessment Anesthesia Assessment: Chart Reviewed Final Anesthetic Review Family History of Problems with Anesthesia: No History of Problems with Anesthesia: No Documented by User: Trista Ngo DO 04/01/24 07:23 [facility] Past Medical History Medical History History of cardioversion FARHEEN on CPAP Alcohol abuse HTN (hypertension) (HFpEF) heart failure with preserved ejection fraction Family History Family History Mother HTN (hypertension) Diabetes mellitus Father Diabetes mellitus HTN (hypertension) Maternal Uncle Colon cancer Family history of problems with anesthesia: No Surgical History Surgical History History of esophagogastroduodenoscopy (EGD) Hx of colonoscopy Status post ORIF of fracture of ankle S/P hip replacement History of Problems with Anesthesia: No Social History Social History (Updated 03/26/24 @ 13:26 by ALEJANDRO Bagley) Household Members: Significant Other and Children Household Members Other:: Girlfriend and daughter Housing: Apartment Are you a primary home care nurse to a significant other at home: No Do you presently have visiting nurse or other home services: No Alcohol intake: former Patient Tobacco Use Status: Never used Tobacco e-Cigarette/Vaping Use: Never Used Second Hand Smoke Exposure: No Use of substances other than those prescribed or required for medical reasons: Yes Substance Use Type: Marijuana Substance Use Type Other:: Gummies Are you DNR?: No Advance Directives: No Advance Directives Information Provided: Yes Advance Directives Date on File: 01/25/21 Recently lost weight without trying: No service: No Current occupational status: retired Current occupation: rt handed Cognitive needs: No Hearing needs: No Vision needs: No Meds Allergies Allergy/AdvReac Type Severity Reaction Status Date / Time No Known Allergies Allergy Verified 03/26/24 13:25 Home Medications ?Medication ?Instructions ?Recorded ?Confirmed ?Last Taken ?Type lisinopril 20 mg tablet 20 mg PO DAILY 04/10/23 03/06/24 02/23/24 History psyllium 1 packet PO DAILY 02/24/24 03/06/24 02/23/24 History Exam Exam Date and Time: 04/01/24 0717 Height,Weight and Vital Signs: Height 6 ft 3 in Weight 120.656 kg Vital Signs Temperature 98.6 F 04/01/24 06:34 Pulse Rate 60 04/01/24 06:34 Respiratory Rate 16 04/01/24 06:34 Blood Pressure 158/81 H 04/01/24 06:34 Pulse Oximetry 97 04/01/24 06:34 Oxygen Delivery Method Room Air 04/01/24 06:34 Temperature 98.6 F 04/01/24 06:34 Pulse Rate 60 04/01/24 06:34 Respiratory Rate 16 04/01/24 06:34 Blood Pressure 158/81 H 04/01/24 06:34 Pulse Oximetry 97 04/01/24 06:34 Oxygen Delivery Method Room Air 04/01/24 06:34 Airway Mallampati Class: III TM Dist: >3cm Neck ROM: Full Loose/Missing/Broken Teeth: No (patient denies any loose or broken teeth) Heart: S1S2 Lungs: CTAB Assessment and Plan Assessment Anesthesia Assessment: Anesthesia Plan Discussed and Chart Reviewed Final Anesthetic Review Family History of Problems with Anesthesia: No History of Problems with Anesthesia: No NPO: Yes ASA Class: III Final Preanesthetic Review: No Changes in Pt Med Stat, Meds/Allgs Chart Reviewed, Consent Obtained/Reviewed and Anes Risks/Benef Reviewed Patient Risk: Intermediate Procedure Risk: Low Anesthetic Plan Anesthetic Plan: GA, Regional Block (right brachial plexus block) and Agree w/ Assess. and Plan Disposition: Standard PACU
--- NOTE | 2024-04-01 07:43 | P.OP_ITS ---
Operative Note Operative Note Date of Service: 04/01/24 Narrative: Operative Note Narrative: Preop diagnosis: 1. Right Distal radius fracture, comminuted intra-articular Postop diagnosis: Same Procedure: 1. Right Distal radius fracture open reduction internal fixation, comminuted 3 part intra-articular Surgeon: Farzaneh Rey MD Tamper Operator: Jason PETERSON Anesthesia: General anesthesia plus regional block Findings: Comminuted intra-articular distal radius fracture, with early evidence of interval healing Implants: A 3 hole standard Accu Med volar locking plate, with 6 X 2.3 mm locking pegs/screws, and 3 3.5 mm cortical screws Tourniquet time: 67 minutes EBL: 5.0 ml Specimen: None Drains: None Complications: None Disposition: Brought to the recovery room in stable condition Plan: Follow-up in 10-14 days for wound check, suture removal and postop radiographs The patient will be placed in either a short-arm cast or a volar wrist splint. Encouraged no lifting of anything heavier than a cell phone. Please encourage active and passive range of motion of the digits. Follow-up at 4-5 weeks postop for repeat radiographs. Indications: The patient is a 58 year old man with a right comminuted intra- articular distal radius fracture . The risks and benefits of operative treatment, including but not limited to risk of damage to blood vessels, nerves, tendons, infection, recurrence, persistent pain or numbness, incomplete resolution of preoperative symptoms, or need for further surgery were discussed with the patient and they wished to proceed with surgery. Procedure: Once consent was obtained patient was brought back to the operating suite and placed in the operating table in a supine position. A regional block was performed by the anesthesia team. Perioperative antibiotics and anesthesia was administered by the anesthesia team. A tourniquet was applied to the proximal aspect of the right upper extremity and the limb was prepped and draped in a standard surgical fashion. The limb was elevated exsanguinated with Esm arch bandage and the tourniquet inflated to 250 mm of mercury for a total tourniquet time of 67 minutes. The FluoroScan was used throughout the case to assess our reduction, and facilitate implant placement. A gentle closed reduction was 1st performed on the patient's right distal radius fracture. Was assessed radiographically before proceeding with the reduction internal fixation. I then made an 8 cm longitudinal incision over the distal aspect of the flexor carpi radialis tendon. The incision was made through the skin to the subcutaneous tissue using a 15. Blade. Then carefully dissected down to flexor carpi radialis tendon she tenotomy scissors. The FCR tendon sheath was then incised longitudinally using tenotomy scissors under direct visualization. The FCR tendon was then retracted ulnarly. I then made a longitudinal incision in the volar forearm fascia through the floor of FCR tendon sheath using tenotomy scissors under direct visualization. I identified the interval between the radial artery and the flexor tendons. This interval was developed further with my index finger, releasing some of the muscular fibers of the flexor pollicis longus. A dull weatlander retractor was then placed. I then created an ulnarly based flap of the pronator quadratus by releasing the radial and distal edges using a 15. Blade. A Baker elevator was used to elevate the pronator quadratus from the volar surface of the distal radius. This then revealed to us our distal radius fracture. An open reduction was then performed on our distal radius fracture. Again this was a comminuted fracture with comminution of the articular surface. To do this I needed to use a rongeur to remove some of the early bony callus that had already started to form about the fracture site. A La Fontaine elevator was also used to help facilitate freeing up the fragments for their reduction. There was also a cortical fragment from the volar cortex that was positioned in about 90 degrees from its anatomic position. This need to be freed up both using the small rongeur and a La Fontaine elevator. I was then able to reduce this volar cortical fragment. I then used some traction while applying the Accu Med standard 3 hole volar locking plate to the volar surface of the distal radius. I then placed a single K-wire through 1 of the distal holes in the plate and assessed our provisional reduction and placement of implants. I then used the volar locking plate as a buttress plate, using the plate to reduce and hold the fragments on the radial side of the articular surface. I drilled bicortically t hrough the oval hole in the plate using a 2.8 mm drill bit and placed an appropriate length screw. I then placed 2 additional 3.5 cortical screws in the proximal limb of the plate in a similar manner. Fluoroscopic images showed improved reduction of our distal radius fracture, including of the comminuted pieces of the distal radius articular surface. I then placed 6 X 2.3 mm locking screws/pegs in the distal aspect of the plate and distal radius by 1st drilling bicortically with a 1.8 mm drill bit, measuring with a depth gauge, and placing the appropriate length locking screws/pegs. Our reduction and the placement of our plate and screws was then assessed again using fluoroscopic images. Final radiographs were then obtained. The DRUJ was assessed and found to be stable on exam. I was satisfied with our reduction and placement of all implants. At this point the wound was irrigated with normal saline. The pronator quadratus was reduced back over the volar locking plate using some 3-0 Vicryl suture material. The tourniquet was then deflated and hemostasis was obtained with a brief period of local pressure and bipolar monopolar electrocautery. The subcutaneous layer was then reapproximated using some 4-0 Vicryl suture, and the skin edges were reapproximated using some 5 0 Prolene suture. The wound was then infiltrated with some 1% lidocaine with epinephrine postop pain control. A sterile dressing and a short dorsal splint allowing for active flexion and extension of the digits was applied. The patient appears to have tolerated the procedure well and with no complications. All digits were well vascularized conclusion of the case.
--- NOTE | 2024-04-01 07:43 | MHC.SHP ---
Pre-Procedural Eval Section A - 24 Hr Update-Section A only Date of Service: 04/01/24 The patient is an INPATIENT: No Changes since office visit: No Cold of Flu in the past 2 weeks, No New Medical Problems, No Changes in Medication and No Patient answered all questions The patient has been examined within 24 hours of the surgical procedure. The History & Physical has been completed within 30 days and I have reviewed it.: Yes Section B - Complete if H&P > 30 days Chief Complaint: fx of lower radius,and navicular bone Allergies: Allergies Allergy/AdvReac Type Severity Reaction Status Date / Time No Known Allergies Allergy Verified 03/26/24 13:25 Plan I have reviewed the history and physical and performed a pertinent physical examination on my patient. No changes have occurred unless specified. Time Spent With Patient Time: Total time managing care of this patient today ____ minutes.
== END 2024-04-01 12:14 | disposition home or self-care (01) ==
PROVIDERS: PCP Nurse Practitioner Family; Visit Provider Orthopaedic Surgery
PROC: (CPT 25609; principal; 2024-04-01 07:30)
DX: S52.501A Unspecified fracture of the lower end of right radius, initial encounter for closed fracture (principal); R20.0 Anesthesia of skin; R20.2 Paresthesia of skin; M25.531 Pain in right wrist; M25.572 Pain in left ankle and joints of left foot; M19.072 Primary osteoarthritis, left ankle and foot; Y08.89XA Assault by other specified means, initial encounter; Y93.9 Activity, unspecified; Y92.9 Unspecified place or not applicable; Y99.9 Unspecified external cause status; I11.0 Hypertensive heart disease with heart failure; I50.30 Unspecified diastolic (congestive) heart failure; I48.0 Paroxysmal atrial fibrillation; Z95.810 Presence of automatic (implantable) cardiac defibrillator; G47.33 Obstructive sleep apnea (adult) (pediatric); F10.10 Alcohol abuse, uncomplicated; Z79.01 Long term (current) use of anticoagulants; Z99.89 Dependence on other enabling machines and devices
CPT/HCPCS: 25609; C1713; J0131; J0690; J1100; J2250; J2405; J2704; J2795; J3010

== ENCOUNTER → 2024-04-01 06:11 | Outpatient (BNV) | payer OTHER, SELFPAY | PROVIDERS: PCP Nurse Practitioner Family; Visit Provider Orthopaedic Surgery | DX: S52.571A Other intraarticular fracture of lower end of right radius, initial encounter for closed fracture (principal) | CPT/HCPCS: 25609 ==

== ENCOUNTER → 2024-04-07 23:59 | Outpatient (BNV) | payer OTHER, SELFPAY ==
--- NOTE | 2024-04-14 12:45 | MHC.OFFVIS ---
Intake Visit Reasons: Remote HF monitoring- [employer] Allergies No Known Allergies Allergy (Verified 04/10/24 11:28) [facility] Medical History History of cardioversion FARHEEN on CPAP Alcohol abuse HTN (hypertension) (HFpEF) heart failure with preserved ejection fraction Surgical History History of esophagogastroduodenoscopy (EGD) Hx of colonoscopy Status post ORIF of fracture of ankle S/P hip replacement Family History Mother HTN (hypertension) Diabetes mellitus Father Diabetes mellitus HTN (hypertension) Maternal Uncle Colon cancer Social History Household Members: Significant Other and Children Household Members Other:: Girlfriend and daughter Housing: Apartment Are you a primary healthcare project manager to a significant other at home: No Do you presently have visiting nurse or other home services: No Alcohol intake: former Patient Tobacco Use Status: Never used Tobacco e-Cigarette/Vaping Use: Never Used Second Hand Smoke Exposure: No Substance Use Type: Marijuana Advance Directives Date on File: 01/25/21 service: No Current occupational status: retired Current occupation: rt handed Cognitive needs: No Hearing needs: No Vision needs: No Office Procedures Cardiac Device Check Cardiac Device Check Details: Date of service- 04/07/2024; based on impedance data and physiological variables, there is no evidence of worsening congestive heart failure. [id number] Cardiac Device Interrogation, cardio physiologic monitor Procedure code (CPT) selection complete Assessment & Plan Assessment & Plan (1) ICD (implantable cardioverter-defibrillator) in place: Code(s): Z95.810 - Presence of automatic (implantable) cardiac defibrillator Category: Medical (2) NICM (nonischemic cardiomyopathy): Code(s): I42.8 - Other cardiomyopathies Category: Medical Plan x Coding Level of Care Code Procedure Only Diagnoses ICD (implantable cardioverter-defibrillator) in place Z95.810 NICM (nonischemic cardiomyopathy) I42.8 CPT Codes Cardiac Device Check - Cardiac Device 15: [id number] Cardiac Device Interrogation, cardio physiologic monitor ([id number])
== END ==
PROVIDERS: Visit Provider Internal Medicine
DX: I42.8 Other cardiomyopathies (principal); Z95.810 Presence of automatic (implantable) cardiac defibrillator
CPT/HCPCS: 93297

== ENCOUNTER 2024-04-10 10:30 | Outpatient (REF) | payer OTHER, SELFPAY ==
--- NOTE | ~2024-04-10 | XR_ITS ---
EXAMINATION: XR WRIST, RIGHT CLINICAL INFORMATION: M25.531 - Pain in right wrist COMPARISON: 03/26/2024, 03/21/2024. CT right wrist 03/27/2024. TECHNIQUE: PA, lateral, and oblique views of the right wrist. FINDINGS: There has been ORIF of a distal comminuted intra-articular radial fracture with plate and screw fixation. The hardware is intact and appears well seated. There is scientologist of gross anatomic alignment. There is no current cortical step-off seen of the fracture line in the intra-articular aspect. The fracture lines appear slightly less distinct with bony periostitis and early callus formation suggesting healing. No additional fractures. Carpal bones intact and normally aligned. Moderate osteoarthrosis first CMC joint. Mild osteoarthrosis STT joints. Mild spurring radiocarpal joint. Soft tissue swelling has improved. XR/XR wrist RT min 3V IMPRESSION: 1. ORIF of comminuted intra-articular distal radial fracture without complication. Mormon of anatomic alignment. 2. Early healing of the fracture noted. Electronically signed by: Per Ritchie MD 06/17/2024 01:24 PM [facility]
== END 2024-04-10 10:31 | disposition home or self-care (01) ==
LOC: HO.HOSX 10:30
DX: M25.531 Pain in right wrist (principal); S52.501A Unspecified fracture of the lower end of right radius, initial encounter for closed fracture
CPT/HCPCS: 73110; 99212

== ENCOUNTER → 2024-04-10 10:34 | Outpatient (BNV) | payer OTHER, SELFPAY | PROVIDERS: Visit Provider Radiology Diagnostic Radiology | DX: S52.571D Other intraarticular fracture of lower end of right radius, subsequent encounter for closed fracture with routine healing (principal) | CPT/HCPCS: 73110 ==

== ENCOUNTER 2024-04-10 11:22 | Outpatient (AMB) | payer OTHER, SELFPAY ==
[2024-04-10 11:27] VITALS: BMI 32.9
--- NOTE | 2024-04-10 11:27 | A.OFFVIS_ITS ---
Vital Signs 04/10/24 11:27 Height 6 ft 3 in Weight 263 lb BMI 32.9 Handedness Right Intake Visit Reasons: PO Right distal radius ORIF 04/01/24 AR Intake Note: Nitesh is a 58 year old right hand dominant male who presents today post operatively s/p Right Distal radius fracture ORIF DOS:04/01/24 w/ Dr Rey. Patient reports he has been feeling discomfort especially when he is sleeping. He says half of his right hand feels tingling and in his 3rd, 4th , and 5th digits. He has an increase in pain with splint off, 9 out of 10 pain currently in office. He takes Tylenol PM which offers mild relief and then makes him sleepy helping with his rest. Allergies No Known Allergies Allergy (Verified 04/10/24 11:28) HPI HPI PO Right distal radius ORIF 04/01/24 AR: Details: Patient is a 58-year-old male who presents for postoperative evaluation status post right distal radius ORIF, DOS 04/01/2024. Today, the patient reports that he is still experiencing some significant discomfort in his right wrist, and that he feels his right hand has gotten somewhat stiff. Patient reports that when the dressing was removed from his incision site, there was noted to be some green discharge on the bandage, but no active discharge from the incision site at this time. Patient denies any numbness or tingling in the right hand. No other acute complaints or concerns at this time. [facility] Medical History History of cardioversion FARHEEN on CPAP Alcohol abuse HTN (hypertension) (HFpEF) heart failure with preserved ejection fraction Surgical History History of esophagogastroduodenoscopy (EGD) Hx of colonoscopy Status post ORIF of fracture of ankle S/P hip replacement Family History Mother HTN (hypertension) Diabetes mellitus Father Diabetes mellitus HTN (hypertension) Maternal Uncle Colon cancer Social History Household Members: Significant Other and Children Household Members Other:: Girlfriend and daughter Housing: Apartment Are you a primary healthcare marketer to a significant other at home: No Do you presently have visiting nurse or other home services: No Alcohol intake: former Patient Tobacco Use Status: Never used Tobacco e-Cigarette/Vaping Use: Never Used Second Hand Smoke Exposure: No Substance Use Type: Marijuana Advance Directives Date on File: 01/25/21 service: No Current occupational status: retired Current occupation: rt handed Cognitive needs: No Hearing needs: No Vision needs: No Review of Systems Const All systems reviewed & are unremarkable except as noted in HPI and below Physical Exam Vital Signs: BMI result Body Mass Index 32.9 Extrem Other: Patient is alert, oriented, and in no acute distress. Neuro: Normal sensation of the tips of all digits of the right hand at this time Vascular: Cap refill brisk Pain: Patient reports tenderness to gentle palpation about the incision site on the volar right wrist, as well as circumferentially around the entire wrist ROM: Patient is able to make a closed fist in the right hand with encouragement Skin: Well-approximated incision site noted of the volar aspect of the right wrist Of note, there is noted to be a small area of purulence with associated erythema surrounding 1 of the sutures, possibly representing a suture abscess General: No ecchymosis Psych: Appears grossly normal Affect normal Attitude cooperative Office Procedures Casting/Splints 63143-[id number] Splint Application Procedure code (CPT) selection complete Results Reviewed Results Reviewed: X-rays obtained in the office today and independently reviewed by me, Jason Batista PA-C, demonstrate well approximated fracture of the right distal radius with orthopedic hardware in place and in satisfactory clinical alignment. Assessment & Plan Assessment & Plan (1) Distal radius fracture, right: Code(s): S52.501A - Unspecified fracture of the lower end of right radius, initial encounter for closed fracture Category: Medical Plan 1. Right distal radius fracture status post ORIF DOS 04/01/2024 Patient appears to be recovering fairly well from his procedure Patient is educated about the typical recovery course Patient is informed that, due to only being 9 days postop, we can not remove all of his sutures at this time However, suture with suture abscess is removed in the office today without difficulty Patient was sent a one-week course of Augmentin for suture abscess to prevent further infection Patient is amenable to this plan Patient has pain medication script is also refilled at this time Patient is once again placed in a volar wrist splint, and is informed he will be placed in a cast next week Patient will follow-up in 1 week with repeat x-rays for reassessment, sooner with any acute concerns Orders: Orders XR wrist RT min 3V Today M25.531 - Pain in right wrist Medications: New amoxicillin-pot clavulanate 875-125 mg 1 tab PO BID 14 tabs 0RF 7 days oxycodone-acetaminophen 5-325 mg (Percocet) Partial Fill upon patient request. 1 tab PO Q6H PRN 28 tabs 0RF pain 7 days S52.501A - Unspecified fracture of the lower end of right radius, initial encounter for closed fracture Coding Level of Care Code Global (33277) Diagnoses Distal radius fracture, right S52.501A CPT Codes Splint - CPT: 49438-[id number] Splint Application ([id number])
== END 2024-04-10 12:23 | disposition home or self-care (01) ==
DX: S52.501A Unspecified fracture of the lower end of right radius, initial encounter for closed fracture (principal)
CPT/HCPCS: 29125; 99024

== ENCOUNTER 2024-04-16 08:43 | Outpatient (REF) | payer OTHER, SELFPAY ==
--- NOTE | ~2024-04-16 | XR_ITS ---
EXAMINATION: XR WRIST, RIGHT CLINICAL INFORMATION: Pain in right wrist. Out of splint. COMPARISON: X-ray of the right wrist 04/10/2024. TECHNIQUE: PA, lateral, and oblique views of the right wrist. FINDINGS: There are postoperative changes related to plate and screw fixation stabilizing previously noted intra-articular fracture of the distal radius. Alignment/appearance overall unchanged other than perhaps slight increase in callus formation extending along the radial cortex of the distal radius. Chondrocalcinosis of the radiocarpal compartment, unchanged. Osteoarthritis of the distal radioulnar joint, unchanged. Osteoarthritis of the 1st carpometacarpal joint, unchanged. Osteoarthritis of the 5th metacarpophalangeal joint, unchanged. Possible loose body versus ossicle along the radial aspect of the joint. XR/XR wrist RT min 3V IMPRESSION: 1. Postoperative changes related to internal fixation of distal radius fracture. 2. Alignment/appearance is not significantly changed compared with the prior x-ray. Suspect slight increase in callus. 3. Osteoarthritis. Electronically signed by: Alexis Mcallister MD 04/22/2024 01:27 PM EDT
== END 2024-04-16 08:44 | disposition home or self-care (01) ==
LOC: HO.HOSX 08:43
DX: S52.501D Unspecified fracture of the lower end of right radius, subsequent encounter for closed fracture with routine healing (principal); Z98.890 Other specified postprocedural states
CPT/HCPCS: 29125; 73110; 99212

== ENCOUNTER 2024-04-16 09:04 | Outpatient (AMB) | payer OTHER, SELFPAY ==
--- NOTE | 2024-04-16 09:12 | MHC.OFFVIS ---
Vital Signs 04/16/24 09:13 Height 6 ft 3 in Weight 263 lb BMI 32.9 Handedness Right Intake Visit Reasons: PO Right distal radius ORIF 04/01/24 AR-w/xray Intake Note: Nitesh is a 58 year old right hand dominant male who presents today post operatively s/p Right Distal radius fracture ORIF DOS:04/01/24 w/ Dr Rey. Patient reports he is feeling better, some discomfort when he moves his hand around. Sutures removed and steri-strips applied. Allergies No Known Allergies Allergy (Verified 04/16/24 09:13) HPI HPI PO Right distal radius ORIF 04/01/24 AR-w/xray: Details: Patient is a 58-year-old male who presents for postoperative evaluation status post right distal radius ORIF, DOS 04/01/2024. Today, the patient reports that he is feeling well, and has no acute complaints or concerns at this time. Patient reports minimal discomfort at the fracture or surgery site. Patient reports that he is able to make a closed fist and extend all digits of the right fully. Patient inquires if the small suture abscess that was previously seen has resolved. Patient denies any numbness or tingling in the right hand. No other acute complaints or concerns at this time. [facility] Medical History History of cardioversion FARHEEN on CPAP Alcohol abuse HTN (hypertension) (HFpEF) heart failure with preserved ejection fraction Surgical History History of esophagogastroduodenoscopy (EGD) Hx of colonoscopy Status post ORIF of fracture of ankle S/P hip replacement Family History Mother HTN (hypertension) Diabetes mellitus Father Diabetes mellitus HTN (hypertension) Maternal Uncle Colon cancer Social History Household Members: Significant Other and Children Household Members Other:: Girlfriend and daughter Housing: Apartment Are you a primary daycare director to a significant other at home: No Do you presently have visiting nurse or other home services: No Alcohol intake: former Patient Tobacco Use Status: Never used Tobacco e-Cigarette/Vaping Use: Never Used Second Hand Smoke Exposure: No Substance Use Type: Marijuana Advance Directives Date on File: 01/25/21 service: No Current occupational status: retired Current occupation: rt handed Cognitive needs: No Hearing needs: No Vision needs: No Review of Systems Const All systems reviewed & are unremarkable except as noted in HPI and below Physical Exam Vital Signs: BMI result Body Mass Index 32.9 Extrem Other: Patient is alert, oriented, and in no acute distress. Neuro: Normal sensation of the tips of all digits of the right hand at this time Vascular: Cap refill brisk Pain: Patient reports very mild tenderness to gentle palpation about the incision site on the volar right wrist, ROM: Patient is able to make a closed fist in the right hand without difficulty Skin: Well-approximated incision site noted of the volar aspect of the right wrist Suture abscess has resolved, no evidence of purulence or surrounding erythema General: No ecchymosis Psych: Appears grossly normal Affect normal Attitude cooperative Office Procedures Casting/Splints [id number] Cast Application Procedure code (CPT) selection complete Results Reviewed Results Reviewed: X-rays obtained in the office today and independently reviewed by me, Jason Batista PA-C, demonstrate well approximated fracture of the right distal radius with orthopedic hardware in place and in satisfactory clinical alignment. Assessment & Plan Assessment & Plan (1) Distal radius fracture, right: Code(s): S52.501A - Unspecified fracture of the lower end of right radius, initial encounter for closed fracture Category: Medical Plan 1. Right distal radius fracture status post ORIF DOS 04/01/2024 Patient appears to be recovering fairly well from his procedure Patient is educated about the typical recovery course Sutures removed today without difficulty Patient will not require further course of antibiotics Patient is amenable to this plan Patient is once again placed in a volar wrist splint, and is informed he will be placed in a cast next week Patient will follow-up in 3 week with repeat x-rays for reassessment with Dr. Rey, sooner with any acute concerns Orders: Orders XR wrist RT min 3V Today M25.531 - Pain in right wrist Coding Level of Care Code Global (11374) Diagnoses Distal radius fracture, right S52.501A CPT Codes Casting - CPT: 93649-Flqtszm Cast Application ([id number])
[2024-04-16 09:13] VITALS: BMI 32.9
== END 2024-04-16 10:07 | disposition home or self-care (01) ==
DX: S52.501A Unspecified fracture of the lower end of right radius, initial encounter for closed fracture (principal)
CPT/HCPCS: 29125; 99024

== ENCOUNTER 2024-04-24 08:19 | Outpatient (REF) | payer OTHER, SELFPAY ==
--- NOTE | ~2024-04-24 | XR_ITS ---
EXAMINATION: XR WRIST, RIGHT CLINICAL INFORMATION: M79.641 - Pain in right hand COMPARISON: 04/16/2024, 03/26/2024, 03/21/2024. CT right wrist 03/27/2024. TECHNIQUE: PA, lateral, and oblique views of the right wrist. FINDINGS: There has been ORIF of a distal comminuted intra-articular radial fracture with plate and screw fixation. The hardware is intact and appears well seated. There is orthodoxy of gross anatomic alignment. There is no current cortical step-off seen of the fracture line in the intra-articular aspect. The fracture lines appear more blunted with bony periostitis and early bridging callus formation suggesting continued healing. No additional fractures. Carpal bones intact and normally aligned. Moderate osteoarthrosis first CMC joint. Mild osteoarthrosis STT joints. Mild spurring radiocarpal joint. Soft tissue swelling has improved. XR/XR wrist RT w scaphoid IMPRESSION: 1. ORIF of comminuted intra-articular distal radial fracture without complication. Synagogue of anatomic alignment. 2. Continued healing of the fracture noted. Electronically signed by: Per Ritchie MD 06/17/2024 01:26 PM [facility]
== END 2024-04-24 08:20 | disposition home or self-care (01) ==
LOC: HO.HOSX 08:19
DX: M79.641 Pain in right hand (principal); Z47.89 Encounter for other orthopedic aftercare; S52.501D Unspecified fracture of the lower end of right radius, subsequent encounter for closed fracture with routine healing; Z98.890 Other specified postprocedural states
CPT/HCPCS: 29075; 73110; 99212

== ENCOUNTER 2024-04-24 08:35 | Outpatient (AMB) | payer OTHER, SELFPAY ==
--- NOTE | 2024-04-24 08:49 | A.OFFVIS_ITS ---
Intake Visit Reasons: PO:RT distal radius ORIF 04/01/24 - casting Intake Note: Nitesh is a 58 year old right hand dominant male who presents today post operatively for a cast change s/p Right Distal radius fracture ORIF DOS:04/01/24 w/ Dr Rey. Patient reports on 04/22/24 he spilled spaghetti sauce all over his cast , he said his friend is a perez so he helped him remove the cast with snippers. He went to [facility] and bought gauze and wrapped is with darrion bandage. He expresses he notices his wrist has been more sore since removing his cast. Allergies No Known Allergies Allergy (Verified 04/24/24 08:56) HPI HPI PO:RT distal radius ORIF 04/01/24 - casting: Details: Patient is a 58-year-old male who presents for re-evaluation and cast change status post right distal radius ORIF, DOS 04/01/2024. The patient reports that 2 days ago, he got pasta sauce on his cast, so he had his friend remove his cast with tools from his home. The patient reports that his wrist is mildly sore, but he has not noticed any acute increase in pain since the removal of the cast. Patient continues to deny any numbness or tingling right hand. No other acute complaints or concerns this time. [facility] Medical History History of cardioversion FARHEEN on CPAP Alcohol abuse HTN (hypertension) (HFpEF) heart failure with preserved ejection fraction Surgical History History of esophagogastroduodenoscopy (EGD) Hx of colonoscopy Status post ORIF of fracture of ankle S/P hip replacement Family History Mother HTN (hypertension) Diabetes mellitus Father Diabetes mellitus HTN (hypertension) Maternal Uncle Colon cancer Social History Household Members: Significant Other and Children Household Members Other:: Girlfriend and daughter Housing: Apartment Are you a primary patient care manager to a significant other at home: No Do you presently have visiting nurse or other home services: No Alcohol intake: former Patient Tobacco Use Status: Never used Tobacco e-Cigarette/Vaping Use: Never Used Second Hand Smoke Exposure: No Substance Use Type: Marijuana Advance Directives Date on File: 01/25/21 service: No Current occupational status: retired Current occupation: rt handed Cognitive needs: No Hearing needs: No Vision needs: No Review of Systems Const All systems reviewed & are unremarkable except as noted in HPI and below Physical Exam Extrem Other: Patient is alert, oriented, and in no acute distress. Neuro: Normal sensation of the tips of all digits of the right hand at this time Vascular: Cap refill brisk Pain: Patient reports no tenderness to gentle palpation about the incision site on the volar right wrist, ROM: Patient is able to make a closed fist in the right hand without difficulty Skin: Well-approximated incision site noted of the volar aspect of the right wrist No evidence of infection General: No ecchymosis Psych: Appears grossly normal Affect normal Attitude cooperative Office Procedures Casting/Splints [id number] Cast Application Procedure code (CPT) selection complete Results Reviewed Results Reviewed: X-rays obtained in the office today and independently reviewed by me, Jason Batista PA-C, demonstrate well approximated fracture of the right distal radius with orthopedic hardware in place and in satisfactory clinical alignment with evidence of interval bony healing. Assessment & Plan Assessment & Plan (1) Distal radius fracture, right: Code(s): S52.501A - Unspecified fracture of the lower end of right radius, initial encounter for closed fracture Category: Medical Plan 1. Right distal radius fracture status post ORIF DOS 04/01/2024 Patient appears to be recovering well postoperatively Patient is educated about the typical recovery course At this time, patient is placed once again into a short-arm cast Patient is educated about cast care and precautions Patient is informed that if he does get being new cast wet or dirty, he should call our office for present to the emergency room after hours for cast removal and replacement, and should not remove his cast at home Patient expresses understanding of this and is amenable to this plan Patient will follow-up with previously scheduled postoperative appointment for reassessment, sooner with any acute concerns Orders: Orders XR wrist RT w scaphoid Today M79.641 - Pain in right hand Coding Level of Care Code Global (42748) Diagnoses Distal radius fracture, right S52.501A CPT Codes Casting - CPT: 78807-Rmfhejv Cast Application ([id number])
== END 2024-04-24 09:46 | disposition home or self-care (01) ==
DX: S52.501A Unspecified fracture of the lower end of right radius, initial encounter for closed fracture (principal)
CPT/HCPCS: 29075; 99024

== ENCOUNTER → 2024-04-24 08:39 | Outpatient (BNV) | payer OTHER, SELFPAY | PROVIDERS: Visit Provider Radiology Diagnostic Radiology | DX: S52.571D Other intraarticular fracture of lower end of right radius, subsequent encounter for closed fracture with routine healing (principal); Z96.7 Presence of other bone and tendon implants | CPT/HCPCS: 73110 ==

== ENCOUNTER 2024-04-26 03:52 | Inpatient (IN) | payer OTHER, SELFPAY ==
[2024-04-26] VITALS (13 sets, daily range): BP systolic 162–191; BP diastolic 91–102; PULSE 56–76; RESP 18–20; TEMP 36.7–37.2; O2SAT 93–98; BMI 33.7; BMI 33.9
--- NOTE | 2024-04-26 | ECG_ITS ---
Test Reason : chest pain Blood Pressure : / mmHG Vent. Rate : 060 BPM Atrial Rate : 060 BPM P-R Int : 176 ms QRS Dur : 088 ms QT Int : 510 ms P-R-T Axes : 040 019 042 degrees QTc Int : 510 ms Sinus rhythm with occasional Premature ventricular complexes Prolonged QT Abnormal ECG When compared with ECG of 24-FEB-2024 01:01, Premature ventricular complexes are now Present Referred By: Tanvi Brito Electronically Signed By:ALEXANDRA UP MD
--- NOTE | ~2024-04-26 | XR_ITS ---
EXAMINATION: XR CHEST CLINICAL INFORMATION: Shortness of breath COMPARISON: None available. TECHNIQUE: Frontal view of the chest was obtained. FINDINGS: The left pectoral single lead AICD pacer is noted. The cardiac silhouette is normal in size. No effusions or pneumothoraces noted. Right lung demonstrates fine pulmonary reticular opacities and diffuse pulmonary vascular indistinctness suggestive of possible groundglass opacity. Normal pattern of pulmonary vasculature is noted in the left lung. XR/XR chest 1V IMPRESSION: Right lung groundglass opacity and multifocal reticular opacities. Findings could represent infection including viral infection. Asymmetric pulmonary edema could have a similar appearance. Electronically signed by: Golden Hernandez MD 04/26/2024 05:52 AM EDT
--- NOTE | 2024-04-26 04:33 | ED.CHESTPAIN ---
HPI - Chest Pain General Chief Complaint: Dyspnea Stated Complaint: diff breathing Time Seen by Provider: 04/26/24 04:22 Source: patient Mode of arrival: ambulatory Limitations: no limitations History of Present Illness ED Provider: Dr. Tanvi Brito HPI narrative: Patient comes to the emergency room complaining of chest pain and shortness of breath that started approximately 12 hours ago. Patient states that he did not do any physical activity that would triggered the pain, no recent illnesses. Patient states that the shortness of breath gets worse when he ?closes his eyes . However, patient does have a good history of reporting shortness of breath with exertion, orthopnea that is gradually getting worse. Patient states that he is having intermittent chest pains and dizziness. Patient denies any syncopal episodes Related Data Home Medications ?Medication ?Instructions ?Recorded ?Confirmed lisinopril 20 mg tablet 20 mg PO DAILY 04/10/23 03/06/24 psyllium 1 packet PO DAILY 02/24/24 03/06/24 Previous Rx's ?Medication ?Instructions ?Recorded blood pressure monitor (Blood #1 ea 04/25/23 Pressure Kit) apixaban 5 mg tablet (Eliquis) 5 mg PO BID 90 days #180 tabs 12/04/23 amiodarone 200 mg tablet 200 mg PO DAILY #90 tabs 12/26/23 metoprolol succinate 100 mg 100 mg PO DAILY #90 tabs 02/15/24 tablet,extended release 24 hr (Toprol XL) omeprazole 20 mg capsule,delayed 20 mg PO DAILY #90 caps 02/28/24 release miscellaneous medical supply #1 ea 03/06/24 (Blood Pressure Cuff) sodium,potassium,mag sulfates 17.5 See Rx Instructions PO .COMPLEX 03/15/24 gram-3.13 gram-1.6 gram oral soln #354 mL (Suprep Bowel Prep Kit) amoxicillin 875 mg-potassium 1 tab PO BID 7 days #14 tabs 04/10/24 clavulanate 125 mg tablet oxycodone-acetaminophen 5 mg-325 1 tab PO Q6H PRN pain 7 days #28 04/10/24 mg tablet (Percocet) tabs Allergies Allergy/AdvReac Type Severity Reaction Status Date / Time No Known Allergies Allergy Verified 04/26/24 04:36 Review of Systems Review of Systems: Constitutional : No Weight loss, No Fever, No Chills, No Night Sweats, No Fatigue, No Malaise ENT/Mouth : No Hearing loss, No Ear Pain, No Nasal Congestion, No Sinus Pain, No Hoarseness, No sore throat, No Rhinorrhea, No Swallowing Difficulty Eyes: No Eye Pain, No Swelling, No Redness, No Foreign Body, No Discharge, No Vision Changes Cardiovascular : Playing of chest pain and shortness of breath, no orthopnea, chronic lower extremity edema at baseline for years Respiratory : No Cough, No Sputum, No Wheezing, No Smoke Exposure, No Dyspnea Gastrointestinal : No Nausea, No Vomiting, No Diarrhea, No Constipation, No abdominal Pain, No Hematochezia, No Melena Genitourinary : no irregular bleeding, No Dysuria, No Urinary Frequency, No Hematuria, No Urinary Incontinence, No Urgency, No Flank Pain, No Urinary Flow Changes, No Hesitancy Musculoskeletal : No joint pain, No Myalgias, No Joint Swelling Skin : No Skin Lesions, No rash Neuro : No Weakness, No Numbness, No Paresthesias, No Loss of Consciousness, No Dizziness, No Headache Psych : No Anxiety/Panic, No Depression, No SI/HI/AH/VH, No Social Issues, Heme/Lymph: No Bruising, No Bleeding,No Lymphadenopathy Endocrine : No Polyuria, No Polydipsia, No Temperature Intolerance [facility] Past Medical History Medical History History of cardioversion FARHEEN on CPAP Alcohol abuse HTN (hypertension) (HFpEF) heart failure with preserved ejection fraction Surgical History History of esophagogastroduodenoscopy (EGD) Hx of colonoscopy Status post ORIF of fracture of ankle S/P hip replacement Family History Family History Mother HTN (hypertension) Diabetes mellitus Father Diabetes mellitus HTN (hypertension) Maternal Uncle Colon cancer Social History Social History Household Members: Significant Other and Children Household Members Other:: Girlfriend and daughter Housing: Apartment Are you a primary personal care attendant to a significant other at home: No Do you presently have visiting nurse or other home services: No Alcohol intake: former Patient Tobacco Use Status: Never used Tobacco e-Cigarette/Vaping Use: Never Used Second Hand Smoke Exposure: No Substance Use Type: Marijuana Advance Directives: Yes Advance Directives on File: Yes Advance Directives Date on File: 01/25/21 service: No Current occupational status: retired Current occupation: rt handed Cognitive needs: No Hearing needs: No Vision needs: No Physical Exam Vital Signs: Vital Signs: Last Vital Signs Temp 98.3 F 04/26/24 04:33 Pulse 62 04/26/24 04:33 Resp 20 04/26/24 04:33 BP 187/97 H 04/26/24 04:33 Pulse Ox 95 04/26/24 04:33 O2 Del Method Room Air 04/26/24 04:33 BMI result Body Mass Index 33.7 Const: Other: Appearance: Alert. Oriented X3. No acute distress. Eyes: Pupils equal, round and reactive to light. ENT: Pharynx normal. Neck: Normal inspection. Neck supple. No lymph nodes noted. No crepitus CVS: Normal heart rate and rhythm. Pulses normal. Normal S1 and S2 Respiratory: No respiratory distress. Breath sounds normal. No Wheezing. No rales Abdomen: Soft and nontender. No rigidity. No distention. Skin: Skin warm and dry. Normal skin color. Normal skin turgor. Extremities: +1 pitting edema bilaterally. No Lacerations. No Rash weakness related arm is in a cast due to a fracture status post surgery. Neuro: Oriented X 3. No motor deficit. No sensory deficit. Moving all extremities. No slurred speech. CN 2 through 12 grossly intact Psych: calm, cooperative, normal affect Course Course Course Narrative: All of patient's labs and imaging pending Medical Decision Making Medical Decision Making MDM Narrative: My interpretation of labs. Patient has a hemoglobin of 8.4. Patient has a significant cardiac history. Patient would benefit from a blood transfusion, patient agreeable. -patient is on Eliquis. Guaiac negative. -patient's chemistry negative. BNP is 1206. Troponin 28.3. -I discussed with the patient that he would benefit from a blood transfusion. However, he is at risk of a CHF exacerbation which he already is on. Patient will be given blood very slow and will be on Lasix. -I discussed the patient with Dr. Noguera, patient being admitted. Differential Diagnosis Differential Diagnoses: The differential diagnosis associated with the presentation includes (As above) Admission/Observation Consideration of admission/observation: Escalation of care including admission/observation considered Consult Healthcare Provider Management of the patient was discussed with: Hospitalist Lab Data MDM Lab Attestation statement: I reviewed the patient's lab results. 04/26/24 04:49 04/26/24 04:49 Labs: Lab Results 04/26/24 04/26/24 04/26/24 Range/Units 04:48 04:49 04:57 WBC 9.4 (4.8-10.8) X10*3/uL RBC 3.55 L (4.60-5.80) X10*6/uL Hgb 8.4 L (14.0-18.0) g/dl Hct 27.5 L D (42.0-52.0) % MCV 77.5 L (80.0-98.0) fL MCH 23.7 L (27.0-33.0) pg MCHC 30.5 L (31.0-36.0) g/dl RDW 18.0 H (11.0-16.0) % Plt Count 213 D (160-400) X10*3/uL MPV 10.3 (9.4-12.4) fL Immature Gran % (Auto) 0.4 (0.0-0.4) % Neut % (Auto) 77.2 H (45-73) % Lymph % (Auto) 14.0 L (20-40) % [place] % (Auto) 7.0 (2-11) % Eos % (Auto) 1.1 (0-4) % Baso % (Auto) 0.3 (0-2) % Lymph # (Auto) 1.3 (1.2-4.9) X10*3/uL [place] # (Auto) 0.7 (0.1-1.2) X10*3/uL Eos # (Auto) 0.1 (0.0-0.4) X10*3/uL Baso # (Auto) 0.0 (0.0-0.2) X10*3/uL Abs Immat Gran (auto) 0.04 H (0.00-0.03) X10*3/uL Absolute Neuts (auto) 7.2 (2.0-8.3) x10*3/uL Absolute Nucleated RBC 0.000 (0.0-0.012) X10*3/uL Nucleated RBC % (auto) 0.0 (0.0-0.2) /100WBC PT 15.8 H (10.9-12.4) SEC INR 1.4 H (0.9-1.1) VBG pH 7.53 H (7.32-7.43) VBG pCO2 33 mmHg VBG pO2 132 mmHg VBG HCO3 28 H (22-26) mmol/L VBG O2 Saturation 100.0 % VBG Base Excess 5.5 mmol/L Sodium 140 (135-145) mmol/L Potassium 3.3 (3.3-5.1) mmol/L Chloride 106 (96-108) mmol/L Carbon Dioxide 24 (22-29) mmol/L Anion Gap 13 (12-20) BUN 10 (9-16) mg/dL Creatinine 0.85 (0.5-1.4) mg/dL Estim Creat Clear Calc 136.7 Estimated GFR > 60 Random Glucose 110 (60-115) mg/dL Calcium 8.6 D (8.4-10.2) mg/dL Magnesium 1.8 (1.6-2.6) mg/dL Iron 60 (45-160) mcg/dL TIBC 371 (228-428) mcg/dL % Saturation 16 (15-50) % Unsat Iron Binding 311 ug/dL Total Bilirubin 1.1 H (0.0-1.0) mg/dL Direct Bilirubin 0.4 (0.0-0.5) mg/dL AST 12 (5-37) U/L ALT 7 (0-40) U/L Alkaline Phosphatase 115 (39-117) U/L Troponin I High Sens 28.3 D (<3.5-35.0) ng/L B-Natriuretic Peptide 1206 H (<100) pg/mL Total Protein 6.1 L (6.5-8.0) g/dL Albumin 3.3 L (3.5-5.0) g/dL Stool Occult Blood (NEGATIVE) COVID-19 (MAZIN) Negative (Negative) COVID-19 Clin Com See Note Influenza Type A (SLIME) Negative (Negative) Influenza Type B (SLIME) Negative (Negative) Influenza A & B Note See Note 04/26/24 Range/Units 06:32 WBC (4.8-10.8) X10*3/uL RBC (4.60-5.80) X10*6/uL Hgb (14.0-18.0) g/dl Hct (42.0-52.0) % MCV (80.0-98.0) fL MCH (27.0-33.0) pg MCHC (31.0-36.0) g/dl RDW (11.0-16.0) % Plt Count (160-400) X10*3/uL MPV (9.4-12.4) fL Immature Gran % (Auto) (0.0-0.4) % Neut % (Auto) (45-73) % Lymph % (Auto) (20-40) % [place] % (Auto) (2-11) % Eos % (Auto) (0-4) % Baso % (Auto) (0-2) % Lymph # (Auto) (1.2-4.9) X10*3/uL [place] # (Auto) (0.1-1.2) X10*3/uL Eos # (Auto) (0.0-0.4) X10*3/uL Baso # (Auto) (0.0-0.2) X10*3/uL Abs Immat Gran (auto) (0.00-0.03) X10*3/uL Absolute Neuts (auto) (2.0-8.3) x10*3/uL Absolute Nucleated RBC (0.0-0.012) X10*3/uL Nucleated RBC % (auto) (0.0-0.2) /100WBC PT (10.9-12.4) SEC INR (0.9-1.1) VBG pH (7.32-7.43) VBG pCO2 mmHg VBG pO2 mmHg VBG HCO3 (22-26) mmol/L VBG O2 Saturation % VBG Base Excess mmol/L Sodium (135-145) mmol/L Potassium (3.3-5.1) mmol/L Chloride (96-108) mmol/L Carbon Dioxide (22-29) mmol/L Anion Gap (12-20) BUN (9-16) mg/dL Creatinine (0.5-1.4) mg/dL Estim Creat Clear Calc Estimated GFR Random Glucose (60-115) mg/dL Calcium (8.4-10.2) mg/dL Magnesium (1.6-2.6) mg/dL Iron (45-160) mcg/dL TIBC (228-428) mcg/dL % Saturation (15-50) % Unsat Iron Binding ug/dL Total Bilirubin (0.0-1.0) mg/dL Direct Bilirubin (0.0-0.5) mg/dL AST (5-37) U/L ALT (0-40) U/L Alkaline Phosphatase (39-117) U/L Troponin I High Sens (<3.5-35.0) ng/L B-Natriuretic Peptide (<100) pg/mL Total Protein (6.5-8.0) g/dL Albumin (3.5-5.0) g/dL Stool Occult Blood NEGATIVE (NEGATIVE) COVID-19 (MAZIN) (Negative) COVID-19 Clin Com Influenza Type A (SLIME) (Negative) Influenza Type B (SLIME) (Negative) Influenza A & B Note Independent Interpretation I performed an independent interpretation of an: Plain X-Ray Radiology Impression Discussion of test interpretation with radiology: I have reviewed the radiologist's reading. Radiologist Impression: The left pectoral single lead AICD pacer is noted. The cardiac silhouette is normal in size. No effusions or pneumothoraces noted. Right lung demonstrates fine pulmonary reticular opacities and diffuse pulmonary vascular indistinctness suggestive of possible groundglass opacity. Normal pattern of pulmonary vasculature is noted in the left lung. XR/XR chest 1V IMPRESSION: Right lung groundglass opacity and multifocal reticular opacities. Findings could represent infection including viral infection. Asymmetric pulmonary edema could have a similar appearance. Critical Care Time Critical Care Time Critical Care Time: Yes Total Critical Care Time: 75 Attestation: I have personally provided critical care time. Time includes review of lab data, radiology results, discussion with consultants, and monitoring for potential decompensation. Intervention performed as documented. Discharge Plan Discharge Clinical Impression: Acute exacerbation of CHF (congestive heart failure), Anemia Patient Disposition: Admitted As Inpatient Prescriptions: No Action lisinopril 20 mg tablet 20 mg PO DAILY (DME) blood pressure monitor [Blood Pressure Kit] Kit See Rx Instructions .Route Qty: 1 0RF Rx Instructions: As directed Eliquis 5 mg tablet 5 mg PO BID 90 Days Qty: 180 1RF amiodarone 200 mg tablet 200 mg PO DAILY Qty: 90 3RF psyllium Packet 1 packet PO DAILY Rx Instructions: mix into at least 8 oz of water or juice before administering omeprazole 20 mg capsule,delayed release(DR/EC) 20 mg PO DAILY Qty: 90 0RF (DME) Blood Pressure Cuff Misc See Rx Instructions .Route Qty: 1 0RF Rx Instructions: As directed sodium,potassium,mag sulfates [Suprep Bowel Prep Kit] 17.5-3.13-1.6 gram recon soln See Rx Instructions PO .COMPLEX Qty: 354 0RF Rx Instructions: DILUTE; drink 1/2 at 6-8 pm and half at 11 PM- 1AM metoprolol succinate [Toprol XL] 100 mg tablet extended release 24 hr 100 mg PO DAILY Qty: 90 3RF amoxicillin-pot clavulanate 875-125 mg tablet 1 tab PO BID 7 Days Qty: 14 0RF oxycodone-acetaminophen [Percocet] 5-325 mg tablet 1 tab PO Q6H PRN (Reason: pain) 7 Days Qty: 28 0RF Rx Instructions: Partial Fill upon patient request. Print Language: [place]
[2024-04-26 05:01] LABS: Basophils Percent Auto 0.3 % (0-2); Eosinophils Absolute Auto 0.1 X10*3/uL (0.0-0.4); Eosinophils Percent Auto 1.1 % (0-4); Hematocrit 27.5 % (42.0-52.0); Hemoglobin 8.4 g/dl (14.0-18.0); Imm Gran Abs Auto 0.04 X10*3/uL (0.00-0.03); Imm Gran Pct Auto 0.4 % (0.0-0.4); Lymphocytes Absolute Auto 1.3 X10*3/uL (1.2-4.9); MANUAL DIFF FLAG NO; Mean Corpuscular HGB Conc 30.5 g/dl (31.0-36.0); Mean Corpuscular Hemoglobin 23.7 pg (27.0-33.0); Mean Corpuscular Volume 77.5 fL (80.0-98.0); Mean Platelet Volume 10.3 fL (9.4-12.4); Monocytes Absolute Auto 0.7 X10*3/uL (0.1-1.2); Neutrophils Absolute Auto 7.2 x10*3/uL (2.0-8.3); Neutrophils Percent Auto 77.2 % (45-73); Platelet Count 213 X10*3/uL (160-400); Red Blood Count 3.55 X10*6/uL (4.60-5.80); White Blood Count 9.4 X10*3/uL (4.8-10.8)
[2024-04-26 05:02] LABS: Venous Blood Gas Refer to POC result
[2024-04-26 05:03] LABS: VBG Base Excess 5.5 mmol/L; VBG HCO3 28 mmol/L (22-26); VBG pCO2 33 mmHg; VBG pH 7.53 (7.32-7.43); VBG pO2 132 mmHg
[2024-04-26 05:15] LABS: Alanine Aminotransferase 7 U/L (0-40); Albumin Level 3.3 g/dL (3.5-5.0); Alkaline Phosphatase 115 U/L (39-117); Anion Gap 13 (12-20); Aspartate Amino Transferase 12 U/L (5-37); Bilirubin Direct 0.4 mg/dL (0.0-0.5); Bilirubin Total 1.1 mg/dL (0.0-1.0); Blood Urea Nitrogen 10 mg/dL (9-16); Calcium 8.6 mg/dL (8.4-10.2); Carbon Dioxide 24 mmol/L (22-29); Chloride 106 mmol/L (96-108); Creatinine Clr Calc Pharmacy 136.7; Estimated Glomerular Filt Rate > 60; Glucose Random 110 mg/dL (60-115); Magnesium 1.8 mg/dL (1.6-2.6); Potassium 3.3 mmol/L (3.3-5.1); Sodium 140 mmol/L (135-145); Total Protein 6.1 g/dL (6.5-8.0)
[2024-04-26 05:15] LABS: IDNOW Serial# 152EDE1D; INTERNATIONAL NORM RATIO 1.4 (0.9-1.1); Influenza A Negative (Negative); Influenza B2 Negative (Negative); Prothrombin Time 15.8 SEC (10.9-12.4)
[2024-04-26 05:16] LABS: COVID-19 Test Negative (Negative); IDNOW Serial# 08D9AD1C
[2024-04-26 05:21] LABS: B Type Natriuretic Peptide 1206 pg/mL (<100)
[2024-04-26 06:07] LABS: Troponin-I High Sensitivity 28.3 ng/L (<3.5-35.0)
[2024-04-26 06:48] LABS: OBS Int Ctl Valid YES; OBS1 NEGATIVE (NEGATIVE)
--- NOTE | 2024-04-26 07:00 | CA_ITS ---
Transthoracic Echocardiogram Patient (Last, First, Middle): Nitesh Osorio, Gender: Male Date of : 1965 Age: 58 Procedure Date: 04/26/2024 Procedure Type: Transthoracic Echocardiogram Location: [facility] [place] Height: 190.5 cm Weight: 122.02 kg BSA: 2.49 m2 Heart Rate: bpm BP: 185 / 102 mmHg Historical Society Director: Referring MD: Donte David MD Sueding Machine Operator: Joe Montemayor MD Symptoms: chf Study Quality: Good ECG Rhythm: Sinus Conclusions: - 1. Low normal LV ejection fraction 50-55% with grade 3 diastolic dysfunction 2. Moderate biatrial enlargement 3. Moderately dilated right ventricle with preserved systolic function 4. Cardiac valvular Dopplers within normal limits 5. Severely elevated right ventricular systolic pressure with mildly elevated right atrial pressures 6. No gross pericardial effusion Findings Left Ventricle Normal left ventricular cavity size. There is mildly increased left ventricular wall thickness. The left ventricular systolic function is low normal. The visually estimated ejection fraction is between 50-55%. Spectral Doppler is indicative of a restrictive filling pattern. E/E prime ratio is >15, consistent with elevated filling pressures. Evidence suggests grade III (severe) diastolic dysfunction. Right Ventricle Moderately increased right ventricular cavity size. There is normal right ventricular systolic function. There is an ICD wire seen in the right ventricle. Atria The left atrium is moderately dilated. There is no evidence of interatrial shunt. The right atrium is moderately dilated. A pacemaker wire is identified in the right atrium. Aortic Valve Normal aortic valve structure and function. There is no aortic valve stenosis. There is no aortic valve regurgitation. Mitral Valve Normal mitral valve structure and function. There is trace mitral valve regurgitation. There is no mitral valve stenosis. Pulmonic Valve The pulmonic valve is likely normal. Tricuspid Valve Normal tricuspid valve structure. There is mild tricuspid valve regurgitation. Mildly elevated right atrial pressure. Severe pulmonary hypertension is present. Great Vessels The pulmonary artery was not well visualized. There is mild dilatation of the ascending aorta measuring 3.90 cm. There is no evidence of plaque in the aorta. Venous The inferior vena cava is moderately dilated and collapses greater than 50% with inspiration. Pericardium/Pleural There is no evidence of pericardial effusion. Prior Study Comparison Changes noted compared to prior study dated: 05/24/2023. RV systolic pressure is further increased Measurements 2D Linear Measurements IVSd: 1.24 0.6-0.9/0.6-1.0 cm LVIDd: 5.45 3.9-5.3/4.2-5.9 cm LVIDd Index: 2.19 2.4-3.2/2.2-3.1 cm/m2 LVIDs: 3.14 2.0-3.6 cm LVPWd: 1.25 0.7-1.1 cm Ao Root: 4.00 2.1-3.5 cm LA Diam: 5.30 2.7-3.8/3.0-4.0 cm LAIDs Index: 2.13 1.5-2.3 cm/m2 LV Mass: 352.24 67-162/88-224 g LV Mass Index: 141.46 43-95/49-115 g/m2 LVOT Diam: 2.30 3.0+(-)1.3 cm 2D Systolic Function EF 4C: 53.20 >55% EF 2C: 43.80 >55% EF BiP: 49.30 >55% Mitral Valve MV Pk E: 1.11 MV PK A: 0.40 MV Decel Time: 166.00 E/A: 2.80 E'Lateral: 6.64 E'Medial: 5.98 E/E' Med: 18.60 E/E' Lat: 16.70 PHT: 49.00 MVA PHT: 4.49 Decel Spencer: 6.68 Aortic Valve AoV Pk Jl: 1.61 AoV Mn Jl: 1.12 AoV VTI: 0.37 AoV Pk Grad: 10.00 Aov Mn Grad: 6.00 LOURDES Cont.VTI: 2.45 LVOT LVOT Pk Jl: 1.04 LVOT Mn Jl: 0.66 LVOT VTI: 0.22 LVOT Pk Grad: 4.00 LVOT Mn Grad: 3.00 LVOT Diam: 2.30 LVOT Area: 4.15 Diastolic Function MV Pk E: 1.11 MV Pk A: 0.40 E/A: 2.80 E'Medial: 5.98 E/E' Med: 18.60 E' Laterial: 6.64 E/E' Lat: 16.70 Right Ventricle TAPSE (mm): 40.00 Tricuspid Valve TR Pk Jl: 4.09 TR Pk Grad: 67.00 RA Press: 8.00 RVSP: 75.00 Great Vessels Aorta Ao Root-2D: 4.00 2.0-3.7 cm Ao Asc: 3.90 2.1-3.4 cm Pulmonary Valve PV Pk Jl: 0.94 Peak PV Grad: 4.00 Updated in Other Vendor System with Status of Final Joe Montemayor MD electronically signed on 04/26/2024 4:04:56 PM with status of Final
[2024-04-26 07:30] LABS: Iron 60 mcg/dL (45-160); Percent Iron Saturation 16 % (15-50); Total Iron Binding Capacity 371 mcg/dL (228-428); Unsaturated Iron Binding 311 ug/dL
[2024-04-26 07:44] LABS: Ferritin 33 ng/mL (20-250)
[2024-04-26] MEDS: Furosemide 100 MG/10 ML VIAL 60 MG IVPUSH (08:47)
--- NOTE | 2024-04-26 08:56 | PC.NURSE ---
Resumed care of patient at 0700, night nurse was in room until 0745ish attempting to place an u/s IV line. Pt now has #18 in L AC. Pt reporting CP continues to be present but is not changing in nature to when he came in, vitals stable, BP elevated pt stating it has been even at home for the last month. Pt to get blood transfusion this AM.
--- NOTE | 2024-04-26 09:06 | PHA.MEDREC ---
Addendum entered by Ange Cazares RPh 04/26/24 09:56: [facility] REVIEWED Original Note: Pharmacy Consult ? Medication Reconciliation Pharmacy has completed the medication reconciliation. Confirmed mediations with patient. Patient confirmed he finished the Amoxicillin 875mg-Potassium Clavulanate 125mg a little over a week ago. He also confirmed he finished the Oxycodone-acetaminophen 5mg-325mg about 3 days ago. He confirmed he is still taking the Lisinopril 20mg and states he has some at home, looking in claims and after peaking to his pharmacy he fills at he has not gotten that filled since 01/19/24 for 90 days.
--- NOTE | 2024-04-26 09:15 | P.HPHOSP_ITS ---
History of Present Illness Date of Service: 04/26/24 Attending physician on admission: Donte David Chief Complaint: SOB, chest pain 58 yo M with a pmhx of a fib on eliquis s/p recent successful ablation, HFpEF, v tach s/p ICD/pacemaker, previous alcohol use disorder, FARHEEN on CPAP, HTN, and GI bleed in 02/2024 s/p ?embolization at [facility], who presented to the ED early this AM due to L upper chest pain and SOB. He reports insomnia due to the pain and when he closes his eyes he feels like he is dying . No recent illness or sick contacts. Recent R forearm fx s/p fall and successful ablation for a fib on 04/17 at [facility]. He reports 1 episode of vomiting this AM but denies headache, congestion, abd pain, vomiting, diarrhea, melena, BRBPR, or LE edema. He reports a recent colonoscopy and endoscopy in the past 4 months. Review of Systems 2 Constitutional: Constitutional: Reports body ache(s), Denies fever(s) and Denies headache(s) Eyes: Eyes: Denies change in vision ENT: Denies headache(s), Denies nasal congestion and Denies nasal discharge Cardiovascular: Cardiovascular: Reports as per HPI Respiratory: Respiratory: Reports as per HPI Gastrointestinal: Gastrointestinal: Denies abdominal pain, Denies melena, Denies hematochezia, Denies constipation, Denies diarrhea, Reports nausea, Reports vomiting and Denies hematemesis Genitourinary: Genitourinary: Denies dysuria Musculoskeletal: Musculoskeletal: Reports myalgias Integumentary/Breasts: Skin/Breast: Denies rash Neurologic: Denies headache(s) Psychiatric: Psychiatric: Reports anxiety (scared) [facility] Medical History (Updated 04/26/24 @ 09:27 by Shadia Andres PA-C) Gastrointestinal bleeding History of cardioversion FARHEEN on CPAP Alcohol abuse HTN (hypertension) (HFpEF) heart failure with preserved ejection fraction Functional capacity: independent ambulation Family History Mother HTN (hypertension) Diabetes mellitus Father Diabetes mellitus HTN (hypertension) Maternal Uncle Colon cancer Surgical History (Updated 04/26/24 @ 09:27 by Shadia Andres PA-C) History of cardiac radiofrequency ablation History of esophagogastroduodenoscopy (EGD) Hx of colonoscopy Status post ORIF of fracture of ankle S/P hip replacement Social History Household Members: Significant Other and Children Household Members Other:: Girlfriend and daughter Housing: Apartment Are you a primary wound care specialist to a significant other at home: No Do you presently have visiting nurse or other home services: No Alcohol intake: former Patient Tobacco Use Status: Never used Tobacco e-Cigarette/Vaping Use: Never Used Second Hand Smoke Exposure: No Substance Use Type: Marijuana Advance Directives: Yes Advance Directives on File: Yes Advance Directives Date on File: 01/25/21 service: No Current occupational status: retired Current occupation: rt handed Cognitive needs: No Hearing needs: No Vision needs: No Narrative: lives with his daughter and daughter's mother Meds Allergies Allergy/AdvReac Type Severity Reaction Status Date / Time No Known Allergies Allergy Verified 04/26/24 04:36 Active Medications: Current Medications Acetaminophen (Acetaminophen 325 Mg Tablet) 650 mg PO Q6H PRN PRN Reason: Pain, Mild (Pain Scale 1-3), fever or headache Amiodarone HCl (Amiodarone Hcl 200 Mg Tablet) 200 mg PO DAILY [facility] Apixaban (Apixaban 5 Mg Tablet) 5 mg PO BID [facility] Calcium Carbonate (Calcium Carbonate 750 Mg Tab.Chew) 750 mg PO Q4H PRN PRN Reason: Heartburn Lisinopril (Lisinopril 20 Mg Tablet) 20 mg PO DAILY [facility]; Protocol Magnesium Hydroxide (Milk Of Magnesia 30 Ml Oral.Susp) 30 ml PO DAILY PRN PRN Reason: Constipation Magnesium Oxide (Magnesium Oxide 400 Mg Tablet) 800 mg PO ONCE ONE Stop: 04/26/24 09:11 Melatonin (Melatonin 3 Mg Tablet) 6 mg PO BEDTIME PRN PRN Reason: Insomnia Metoprolol Succinate (Metoprolol Succinate Er 100 Mg Tab.Er.24h) 100 mg PO DAILY [facility]; Protocol Omeprazole (Omeprazole 20 Mg Capsule.Dr) 20 mg PO DAILY [facility] Potassium Chloride (Potassium Chloride Er 20 Meq Tab.Er.Prt) 40 meq PO ONCE ONE Stop: 04/26/24 09:11 Sodium Chloride (0.9 % Sodium Chloride Flush 3 Ml Syringe) 3 ml IVFLUSH QSHIFT [facility] Home Medications ?Medication ?Instructions ?Recorded ?Confirmed ?Last Taken ?Type lisinopril 20 mg tablet 20 mg PO DAILY 04/10/23 04/26/24 04/25/24 History diphenhydramine 25 2 tab PO BEDTIME PRN Pain/Sleep 04/26/24 04/26/24 04/25/24 History mg-acetaminophen 500 mg tablet (Tylenol PM Extra Strength) Physical Exam 2 Vital Signs and Narrative: Vital Signs: Last Vital Signs Temp 98.2 F 04/26/24 07:44 Pulse 56 04/26/24 08:49 Resp 18 04/26/24 08:49 BP 185/102 H 04/26/24 08:49 Pulse Ox 96 04/26/24 08:49 O2 Del Method Room Air 04/26/24 08:49 BMI result Body Mass Index 33.7 General: AOx3, no acute distress, tearful Resp: CTA bilaterally, taking deep breaths at rest CVS: S1, S2, RRR GI: +BS, NT, no distention Skin: Warm, dry Extremities: No edema Psych: Appropriate affect Results Labs 04/26/24 04:49 04/26/24 04:49 Labs: Laboratory Results - last 24 hr 04/26/24 04/26/24 04/26/24 04:48 04:49 04:57 MCV 77.5 L MCH 23.7 L MCHC 30.5 L RDW 18.0 H Plt Count 213 D MPV 10.3 Immature Gran % (Auto) 0.4 Neut % (Auto) 77.2 H Lymph % (Auto) 14.0 L [place] % (Auto) 7.0 Eos % (Auto) 1.1 Baso % (Auto) 0.3 Lymph # (Auto) 1.3 [place] # (Auto) 0.7 Eos # (Auto) 0.1 Baso # (Auto) 0.0 Abs Immat Gran (auto) 0.04 H Absolute Neuts (auto) 7.2 Absolute Nucleated RBC 0.000 Nucleated RBC % (auto) 0.0 PT 15.8 H INR 1.4 H VBG pH 7.53 H VBG pCO2 33 VBG pO2 132 VBG HCO3 28 H VBG O2 Saturation 100.0 VBG Base Excess 5.5 Anion Gap 13 Estim Creat Clear Calc 136.7 Estimated GFR > 60 Random Glucose 110 Calcium 8.6 D Magnesium 1.8 Iron 60 TIBC 371 % Saturation 16 Unsat Iron Binding 311 Ferritin 33 Total Bilirubin 1.1 H Direct Bilirubin 0.4 AST 12 ALT 7 Alkaline Phosphatase 115 Troponin I High Sens 28.3 D B-Natriuretic Peptide 1206 H Total Protein 6.1 L Albumin 3.3 L Stool Occult Blood COVID-19 (MAZIN) Negative COVID-19 Clin Com See Note Influenza Type A (SLIME) Negative Influenza Type B (SLIME) Negative Influenza A & B Note See Note Blood Type Antibody Screen Crossmatch 04/26/24 04/26/24 06:32 08:07 MCV MCH MCHC RDW Plt Count MPV Immature Gran % (Auto) Neut % (Auto) Lymph % (Auto) [place] % (Auto) Eos % (Auto) Baso % (Auto) Lymph # (Auto) [place] # (Auto) Eos # (Auto) Baso # (Auto) Abs Immat Gran (auto) Absolute Neuts (auto) Absolute Nucleated RBC Nucleated RBC % (auto) PT INR VBG pH VBG pCO2 VBG pO2 VBG HCO3 VBG O2 Saturation VBG Base Excess Anion Gap Estim Creat Clear Calc Estimated GFR Random Glucose Calcium Magnesium Iron TIBC % Saturation Unsat Iron Binding Ferritin Total Bilirubin Direct Bilirubin AST ALT Alkaline Phosphatase Troponin I High Sens B-Natriuretic Peptide Total Protein Albumin Stool Occult Blood NEGATIVE COVID-19 (MAZIN) COVID-19 Clin Com Influenza Type A (SLIME) Influenza Type B (SLIME) Influenza A & B Note Blood Type O Positive Antibody Screen NEGATIVE Crossmatch See Detail Imaging Radiologist's Impressions: Impressions Chest X-Ray 04/26/24 04:28 IMPRESSION: Right lung groundglass opacity and multifocal reticular opacities. Findings could represent infection including viral infection. Asymmetric pulmonary edema could have a similar appearance. Electronically signed by: Golden Hernandez MD 04/26/2024 05:52 AM EDT Assessment and Plan (1) Acute exacerbation of CHF (congestive heart failure): Status: Acute (2) Morbid obesity: Status: Acute (3) Anemia: Status: Acute Plan 58 yo M with a pmhx of a fib on eliquis s/p recent successful ablation, HFpEF, v tach s/p ICD/pacemaker, previous alcohol use disorder, FARHEEN on CPAP, HTN, and GI bleed in 02/2024 s/p ?embolization at [facility], who presented to the ED early this AM due to L upper chest pain and SOB. He was found to have a BNP of 1206 (baseline <100), and hgb of 8.4. CHF exacerbation - no leukocytosis, COVID/RSV/flu negative, EKG with SR, occ PVCs and prolonged QTc, trop negative, CXR with ?viral infection vs asymmetric pulm edema - continue lasix, 40mg BID - cardiac diet - cardio consult - monitor BMP and BNP anemia - stable H+H - recent GI embolization at [facility] and cardiac ablation - hgb 8.4, hct 27.5, iron levels normal - no need for transfusion at this time, continue to monitor CBC borderline low mag and K - 800mg PO mag and 40 meq PO K given, will montior a fib s/p ablation and hx v tach s/p ICD/pacemaker - EKG with SR occasional PVCs and prolonged QTc - continue eliquis and amiodarone FARHEEN on CPAP - CPAP at night HTN - continue lisinopril 20mg QD and metoprolol 100 mg QD full code VTE prophy: pneumoboots and continue eliquis Pt with HFpEF with CHF exacerbation with need to inpt stay for at least 2 midnights for IV diuresis and monitoring. Quality Stroke Does the patient have a stroke diagnosis?: No VTE Prior VTE?: No VTE Risk Level:: Medical - moderate - high VTE Device Contraindication: N/A - Device Ordered VTE Drug Contraindication: N/A - Med Ordered
--- NOTE | 2024-04-26 09:33 | PC.NURSE ---
This RN notified provider that there is no consent for blood, however admitting provider has desided they do not want the blood to be given. This RN notified the blood bank at this time.
[2024-04-26] MEDS: Metoprolol Succinate ER 100 MG TAB.ER.24H PO (10:04)
[2024-04-26] MEDS: Magnesium Oxide 400 MG TABLET 800 MG PO (10:04)
[2024-04-26] MEDS: Acetaminophen 325 MG TABLET 650 MG PO (10:04)
[2024-04-26] MEDS: Potassium Chloride ER 20 MEQ TAB.ER.PRT 40 MEQ PO (10:04)
[2024-04-26] MEDS: Omeprazole 20 MG CAPSULE.DR PO (10:04)
[2024-04-26] MEDS: Apixaban 5 MG TABLET PO ×2 (10:04→20:20)
[2024-04-26] MEDS: Amiodarone HCL 200 MG TABLET PO (10:05)
[2024-04-26] MEDS: lisinopriL 20 MG TABLET PO (10:07)
[2024-04-26 10:24] LABS: Troponin-I High Sensitivity 31.9 ng/L (<3.5-35.0)
[2024-04-26 13:52] LABS: Adenovirus PCR Not Detected (Not Detect.); Bordetella parapertussis PCR Not Detected (Not Detect.); Bordetella pertussis PCR Not Detected (Not Detect.); Chlamydia pneumoniae PCR Not Detected (Not Detect.); Coronavirus 229E PCR Not Detected (Not Detect.); Coronavirus HKU1 PCR Not Detected (Not Detect.); Coronavirus NL63 PCR Not Detected (Not Detect.); Coronavirus OC43 PCR Not Detected (Not Detect.); Human metapneumovirus PCR Not Detected (Not Detect.); Influenza A PCR Not Detected (Not Detect.); Influenza B PCR Not Detected (Not Detect.); Mycoplasma pneumoniae PCR Not Detected (Not Detect.); Parainfluenza 1 PCR Not Detected (Not Detect.); Parainfluenza 2 PCR Not Detected (Not Detect.); Parainfluenza 3 PCR Not Detected (Not Detect.); Parainfluenza 4 PCR Not Detected (Not Detect.); RSV PCR Not Detected (Not Detect.); Rhino/Enterovirus PCR Not Detected (Not Detect.)
--- NOTE | 2024-04-26 13:58 | P.CONCA_ITS ---
History of Present Illness History of Present Illness Date of Service: 04/26/24 Requesting physician: Donte David Consult reason: congestive heart failure Chief complaint: CHF exacerbation Narrative: I was consulted to see Nitesh in cardiology consultation today for decompensated congestive heart failure. Patient with complicated past medical history with history of cardiomyopathy suspected to be tachycardia mediated with normalized LV ejection fraction since control of atrial fibrillation, atrial fibrillation rhythm controlled after ablation on amiodarone therapy. On flecainide therapy while in [place] had developed a syncopal episode and subsequently noted to have atrial fibrillation rapid ventricular response degenerating into wide complex tachycardia suspected to be ventricular tachycardia treated LDL [facility] very underwent a dual-chamber defibrillator placement. He does have sleep apnea uses CPAP. Stress echocardiogram last May at shown LVEF of 65-70% with mild LVH with grade 2 diastolic dysfunction. He has not had any recurrent atrial fibrillation episode. He said he was in usual state of health yesterday he was trying to take a nap in the afternoon and got suddenly short of breath and had to get up symptoms suggestive of orthopnea and PND. He said he tried to use his CPAP but could not breathe and subsequently as his symptoms did not improve he came to the emergency room at 04:00. He has had no recent other symptoms of prolonged palpitation, chest pain. Not sure if he is monitoring his weight on a regular basis but he did not notice any significant weight gain or leg edema. No abdominal distension. He came to the hospital and was noted to be in decompensated congestive heart failure with a BNP in the 1200 range. EKG shows sinus rhythm. Cardiology consult was called for further management plan. Patient does not recall as to why he has sudden-onset shortness of breath. He said he has been taking all his medications regularly. Currently not on a diuretic regimen. Last BNP was last April which was 74. Patient denies heavy salt use. He said however his blood pressure has been elevated. He also has prior history of GI bleed status post treatment in [facility] with an invasive procedure comes in with significant anemia. He has no overt signs of bleeding by testing. Review of Systems 2 Constitutional: Constitutional: Reports no additional constitutional complaints Eyes: Eyes: Reports no additional eye complaints Cardiovascular: Cardiovascular: Denies chest pain, Denies lightheadedness, Denies Loss of Consciousness, Denies palpitations, Reports orthopnea and Reports paroxysmal nocturnal dyspnea Respiratory: Respiratory: Denies cough and Denies wheezing Gastrointestinal: Gastrointestinal: Reports no additional gastrointestinal complaints Genitourinary: Genitourinary: Reports no additional male genitourinary complaints Musculoskeletal: Musculoskeletal: Reports no additional musculoskeletal complaints Neurologic: Reports system reviewed and no additional complaints, except as documented Psychiatric: Psychiatric: Reports no additional psychiatric complaints Endocrine: Endocrine: Denies palpitations Allergic/Immunologic: Allergic/Immunologic: Denies wheezing PMFSH Past Medical History Medical History Gastrointestinal bleeding History of cardioversion FARHEEN on CPAP Alcohol abuse HTN (hypertension) (HFpEF) heart failure with preserved ejection fraction Family History Family History Mother HTN (hypertension) Diabetes mellitus Father Diabetes mellitus HTN (hypertension) Maternal Uncle Colon cancer Surgical History Surgical History History of cardiac radiofrequency ablation History of esophagogastroduodenoscopy (EGD) Hx of colonoscopy Status post ORIF of fracture of ankle S/P hip replacement Social History Social History Household Members: Significant Other and Children Household Members Other:: Girlfriend and daughter Housing: Apartment Are you a primary healthcare administrative assistant to a significant other at home: No Do you presently have visiting nurse or other home services: No Alcohol intake: former Patient Tobacco Use Status: Never used Tobacco e-Cigarette/Vaping Use: Never Used Second Hand Smoke Exposure: No Substance Use Type: Marijuana Advance Directives: Yes Advance Directives on File: Yes Advance Directives Date on File: 01/25/21 Nutrition Risks: No Nutritional Risk service: No Current occupational status: retired Current occupation: rt handed Cognitive needs: No Hearing needs: No Vision needs: No Meds Allergies Allergy/AdvReac Type Severity Reaction Status Date / Time No Known Allergies Allergy Verified 04/26/24 04:36 Active Medications: Current Medications Acetaminophen (Acetaminophen 325 Mg Tablet) 650 mg PO Q6H PRN PRN Reason: Pain, Mild (Pain Scale 1-3), fever or headache Last Admin: 04/26/24 10:04 Dose: 650 mg Amiodarone HCl (Amiodarone Hcl 200 Mg Tablet) 200 mg PO DAILY [facility] Last Admin: 04/26/24 10:05 Dose: 200 mg Apixaban (Apixaban 5 Mg Tablet) [address] [facility] Last Admin: 04/26/24 10:04 Dose: 5 mg Calcium Carbonate (Calcium Carbonate 750 Mg Tab.Chew) 750 mg PO Q4H PRN PRN Reason: Heartburn Furosemide (Furosemide 40 Mg/4 Ml Vial) [address] [facility]; Protocol Lisinopril (Lisinopril 20 Mg Tablet) [address] [facility]; Protocol Last Admin: 04/26/24 10:07 Dose: 20 mg Magnesium Hydroxide (Milk Of Magnesia 30 Ml Oral.Susp) 30 ml PO DAILY PRN PRN Reason: Constipation Melatonin (Melatonin 3 Mg Tablet) 6 mg PO BEDTIME PRN PRN Reason: Insomnia Metoprolol Succinate (Metoprolol Succinate Er 100 Mg Tab.Er.24h) [address] [facility]; Protocol Last Admin: 04/26/24 10:04 Dose: 100 mg Omeprazole (Omeprazole 20 Mg Capsule.Dr) 20 mg PO DAILY@0630 [facility] Last Admin: 04/26/24 10:04 Dose: 20 mg Sodium Chloride (0.9 % Sodium Chloride Flush 3 Ml Syringe) [address] [facility] Home Medications ?Medication ?Instructions ?Recorded ?Confirmed ?Last Taken ?Type lisinopril 20 mg tablet 20 mg PO DAILY 04/10/23 04/26/24 04/25/24 History diphenhydramine 25 2 tab PO BEDTIME PRN Pain/Sleep 04/26/24 04/26/24 04/25/24 History mg-acetaminophen 500 mg tablet (Tylenol PM Extra Strength) Physical Exam 2 Vital Signs: Vital Signs: Last Vital Signs Temp 98.5 F 04/26/24 12:23 Pulse 56 04/26/24 12:48 Resp 19 04/26/24 12:48 BP 182/93 H 04/26/24 12:48 Pulse Ox 97 04/26/24 12:48 O2 Del Method Room Air 04/26/24 12:48 BMI result Body Mass Index 33.7 Const: General: cooperative, comfortable, no acute distress, alert, awake and Physically active Nutritional Appearance: obese Orientation/consciousness: patient oriented x3 Limitations: no limitations HEENT: Head: Yes normocephalic and Yes atraumatic Neck: Neck: Yes trachea midline, Yes supple and Yes JVD Resp: Effort & Inspection: normal respiratory effort Auscultation: rales Cardio: Jugular venous distension: JVD Palpation: normal PMI Rate: r egular rate Rhythm: regular rhythm Heart sounds: S1 normal heart sound present, S2 normal heart sound present, no click, no gallops, no murmurs, no rubs and Other heart sounds present (S4 present) GI: Auscultation: normal bowel sounds Skin: General skin exam: no rashes or lesions noted Neuro: General: patient oriented x3 and no focal motor deficits Extrem: General: Yes no clubbing, cyanosis or edema Psych: Appearance: grossly normal Objective Labs and Meds 04/26/24 04:49 04/26/24 04:49 Lab results: Laboratory Results - last 24 hr 04/26/24 04/26/24 04/26/24 04:48 04:49 04:57 WBC 9.4 RBC 3.55 L Hgb 8.4 L Hct 27.5 L D MCV 77.5 L MCH 23.7 L MCHC 30.5 L RDW 18.0 H Plt Count 213 D MPV 10.3 Immature Gran % (Auto) 0.4 Neut % (Auto) 77.2 H Lymph % (Auto) 14.0 L [place] % (Auto) 7.0 Eos % (Auto) 1.1 Baso % (Auto) 0.3 Lymph # (Auto) 1.3 [place] # (Auto) 0.7 Eos # (Auto) 0.1 Baso # (Auto) 0.0 Abs Immat Gran (auto) 0.04 H Absolute Neuts (auto) 7.2 Absolute Nucleated RBC 0.000 Nucleated RBC % (auto) 0.0 Hold Purple Top PT 15.8 H INR 1.4 H VBG pH 7.53 H VBG pCO2 33 VBG pO2 132 VBG HCO3 28 H VBG O2 Saturation 100.0 VBG Base Excess 5.5 Sodium 140 Potassium 3.3 Chloride 106 Carbon Dioxide 24 Anion Gap 13 BUN 10 Creatinine 0.85 Estim Creat Clear Calc 136.7 Estimated GFR > 60 Random Glucose 110 Calcium 8.6 D Magnesium 1.8 Iron 60 TIBC 371 % Saturation 16 Unsat Iron Binding 311 Ferritin 33 Total Bilirubin 1.1 H Direct Bilirubin 0.4 AST 12 ALT 7 Alkaline Phosphatase 115 Troponin I High Sens 28.3 D B-Natriuretic Peptide 1206 H Total Protein 6.1 L Albumin 3.3 L Stool Occult Blood COVID-19 (MAZIN) Negative COVID-19 Clin Com See Note Influenza Type A (SLIME) Negative Influenza Type B (SLIME) Negative Influenza A & B Note See Note Blood Type Antibody Screen Crossmatch 04/26/24 04/26/24 04/26/24 06:32 08:07 09:51 WBC RBC Hgb Hct MCV MCH MCHC RDW Plt Count MPV Immature Gran % (Auto) Neut % (Auto) Lymph % (Auto) [place] % (Auto) Eos % (Auto) Baso % (Auto) Lymph # (Auto) [place] # (Auto) Eos # (Auto) Baso # (Auto) Abs Immat Gran (auto) Absolute Neuts (auto) Absolute Nucleated RBC Nucleated RBC % (auto) Hold Purple Top SEE NOTE PT INR VBG pH VBG pCO2 VBG pO2 VBG HCO3 VBG O2 Saturation VBG Base Excess Sodium Potassium Chloride Carbon Dioxide Anion Gap BUN Creatinine Estim Creat Clear Calc Estimated GFR Random Glucose Calcium Magnesium Iron TIBC % Saturation Unsat Iron Binding Ferritin Total Bilirubin Direct Bilirubin AST ALT Alkaline Phosphatase Troponin I High Sens 31.9 B-Natriuretic Peptide Total Protein Albumin Stool Occult Blood NEGATIVE COVID-19 (MAZIN) COVID-19 Clin Com Influenza Type A (SLIME) Influenza Type B (SLIME) Influenza A & B Note Blood Type O Positive Antibody Screen NEGATIVE Crossmatch See Detail Imaging Radiologist's impression: Impressions Chest X-Ray 04/26/24 04:28 IMPRESSION: Right lung groundglass opacity and multifocal reticular opacities. Findings could represent infection including viral infection. Asymmetric pulmonary edema could have a similar appearance. Electronically signed by: Golden Hernandez MD 04/26/2024 05:52 AM EDT Assessment and Plan (1) Acute exacerbation of CHF (congestive heart failure): Status: Acute Acute onset decompensated congestive heart failure in this middle-aged man of unclear etiology. He is not on loop diuretic therapy and I am not sure he was having progressive fluid buildup from his symptoms. He has improved but still says he continues to have symptoms of orthopnea at this point time. Will continue with IV diuresis. Strict intake and output chart needs to be pursued. He has been diuresing well. His blood pressure is significantly elevated. Would switch his lisinopril to valsartan 160 mg b.i.d.. Add Aldactone 25 mg to his regimen. Continue with metoprolol therapy. Continue rhythm control approach with amiodarone which has helped him significantly. Continue full oral anticoagulation, currently on Eliquis. Continue CPAP therapy. Also add Jardiance 10 mg to his regimen. Would suggest a repeat echocardiogram to rule out development of cardiomyopathy process. Will follow with you Procedures Date of Service Date of Service: 04/26/24
[2024-04-26 14:59] LABS: SARS-CoV-2 PCR Not Detected (Not Detect.)
[2024-04-26] MEDS: Furosemide 40 MG/4 ML VIAL IVPUSH (20:20)
[2024-04-26] MEDS: Valsartan 160 MG TABLET PO (20:20)
[2024-04-26] MEDS: 0.9 % Sodium Chloride Flush 3 ML SYRINGE IVFLUSH (20:21)
[2024-04-27] VITALS: BP 170/90; PULSE 60; RESP 20; TEMP 36.7; O2SAT 96
[2024-04-27 04:00] VITALS: BP 170/90; PULSE 58; RESP 20; TEMP 36.1; O2SAT 95
[2024-04-27] MEDS: Omeprazole 20 MG CAPSULE.DR PO (05:22)
[2024-04-27] MEDS: Furosemide 40 MG/4 ML VIAL IVPUSH (05:22)
[2024-04-27 05:33] VITALS: BMI 32.5
[2024-04-27 08:00] VITALS: BP 121/80; PULSE 64; RESP 16; TEMP 36.5; O2SAT 96
[2024-04-27 08:35] LABS: MANUAL DIFF FLAG NO
[2024-04-27 08:59] LABS: B Type Natriuretic Peptide 685 pg/mL (<100)
[2024-04-27 09:02] LABS: Basophils Absolute Auto 0.1 X10*3/uL (0.0-0.2); Basophils Percent Auto 0.8 % (0-2); Eosinophils Absolute Auto 0.2 X10*3/uL (0.0-0.4); Eosinophils Percent Auto 2.3 % (0-4); Hematocrit 32.2 % (42.0-52.0); Hemoglobin 9.8 g/dl (14.0-18.0); Imm Gran Abs Auto 0.02 X10*3/uL (0.00-0.03); Imm Gran Pct Auto 0.3 % (0.0-0.4); Lymphocytes Absolute Auto 1.6 X10*3/uL (1.2-4.9); Lymphocytes Percent Auto 24.5 % (20-40); Mean Corpuscular HGB Conc 30.4 g/dl (31.0-36.0); Mean Corpuscular Hemoglobin 23.6 pg (27.0-33.0); Mean Corpuscular Volume 77.6 fL (80.0-98.0); Mean Platelet Volume 10.9 fL (9.4-12.4); Monocytes Absolute Auto 0.7 X10*3/uL (0.1-1.2); Monocytes Percent Auto 10.9 % (2-11); Neutrophils Percent Auto 61.2 % (45-73); Platelet Count 240 X10*3/uL (160-400); Red Blood Count 4.15 X10*6/uL (4.60-5.80); Red Cell Distribution Width 18.1 % (11.0-16.0); White Blood Count 6.5 X10*3/uL (4.8-10.8)
[2024-04-27 09:05] LABS: Anion Gap 14 (12-20); Blood Urea Nitrogen 12 mg/dL (9-16); Calcium 9.6 mg/dL (8.4-10.2); Carbon Dioxide 27 mmol/L (22-29); Chloride 103 mmol/L (96-108); Creatinine Clr Calc Pharmacy 129.7; Estimated Glomerular Filt Rate > 60; Glucose Random 103 mg/dL (60-115); Potassium 3.5 mmol/L (3.3-5.1); Sodium 140 mmol/L (135-145)
[2024-04-27 09:35] VITALS: BP 179/94; PULSE 62; RESP 15
[2024-04-27] MEDS: Empagliflozin 10 MG TABLET PO (09:43)
[2024-04-27] MEDS: Spironolactone 25 MG TABLET PO (09:43)
[2024-04-27] MEDS: Metoprolol Succinate ER 100 MG TAB.ER.24H PO (09:43)
[2024-04-27] MEDS: Valsartan 160 MG TABLET PO (09:43)
[2024-04-27] MEDS: Apixaban 5 MG TABLET PO (09:43)
[2024-04-27] MEDS: Amiodarone HCL 200 MG TABLET PO (09:43)
[2024-04-27] MEDS: 0.9 % Sodium Chloride Flush 3 ML SYRINGE IVFLUSH (09:44)
--- NOTE | 2024-04-27 10:26 | P.PNIM_ITS ---
Subjective Subjective Date of Service: 04/27/24 Interval History: seen and examined this AM feeling much better. breathing easier and edema improved Review of Systems Negative except HPI/interval history. Physical Exam 2 Vital Signs: Vital Signs: Last Vital Signs Temp 97.7 F 04/27/24 08:00 Pulse 62 04/27/24 09:35 Resp 15 04/27/24 09:35 BP 179/94 H 04/27/24 09:35 Pulse Ox 96 04/27/24 08:00 O2 Del Method Room Air 04/27/24 08:00 BMI result Body Mass Index 32.5 Const: Other: General - no acute distress, appears comfortable Cardiovascular - regular rate and rhythm, S1-S2 Lungs - minimal rales; no jvd appreciated Abdomen - soft, nontender, no rebound or guarding Extremities - minimal pedal edema Neuro - awake and alert, no focal deficits Objective Data Active Medications Acetaminophen (Acetaminophen 325 Mg Tablet) 650 mg PO Q6H PRN PRN Reason: Pain, Mild (Pain Scale 1-3), fever or headache Last Admin: 04/26/24 10:04 Dose: 650 mg Documented By: NATALIE Amiodarone HCl (Amiodarone Hcl 200 Mg Tablet) 200 mg PO DAILY [facility] Last Admin: 04/27/24 09:43 Dose: 200 mg Documented By: JED Apixaban (Apixaban 5 Mg Tablet) 5 mg PO BID [facility] Last Admin: 04/27/24 09:43 Dose: 5 mg Documented By: JED Calcium Carbonate (Calcium Carbonate 750 Mg Tab.Chew) 750 mg PO Q4H PRN PRN Reason: Heartburn Empagliflozin (Empagliflozin 10 Mg Tablet) 10 mg PO DAILY [facility] Last Admin: 04/27/24 09:43 Dose: 10 mg Documented By: JED Furosemide (Furosemide 40 Mg/4 Ml Vial) 40 mg IVPUSH Q12H [facility]; Protocol Last Admin: 04/27/24 05:22 Dose: 40 mg Documented By: KEEGAN Magnesium Hydroxide (Milk Of Magnesia 30 Ml Oral.Susp) 30 ml PO DAILY PRN PRN Reason: Constipation Melatonin (Melatonin 3 Mg Tablet) 6 mg PO BEDTIME PRN PRN Reason: Insomnia Metoprolol Succinate (Metoprolol Succinate Er 100 Mg Tab.Er.24h) 100 mg PO DAILY [facility]; Protocol Last Admin: 04/27/24 09:43 Dose: 100 mg Documented By: JED Omeprazole (Omeprazole 20 Mg Capsule.Dr) 20 mg PO DAILY@0630 [facility] Last Admin: 04/27/24 05:22 Dose: 20 mg Documented By: KEEGAN Sodium Chloride (0.9 % Sodium Chloride Flush 3 Ml Syringe) 3 ml IVFLUSH QSHIFT [facility] Last Admin: 04/27/24 09:44 Dose: 3 ml Documented By: JED Spironolactone (Spironolactone 25 Mg Tablet) 25 mg PO DAILY [facility]; Protocol Last Admin: 04/27/24 09:43 Dose: 25 mg Documented By: JED Valsartan (Valsartan 160 Mg Tablet) 160 mg PO BID [facility]; Protocol Last Admin: 04/27/24 09:43 Dose: 160 mg Documented By: JED Labs 04/27/24 07:51 04/27/24 07:51 Labs: Laboratory Results - last 24 hr 04/26/24 04/26/24 04/27/24 08:07 11:04 07:51 MCV 77.6 L MCH 23.6 L MCHC 30.4 L RDW 18.1 H Plt Count 240 MPV 10.9 Immature Gran % (Auto) 0.3 Neut % (Auto) 61.2 Lymph % (Auto) 24.5 [place] % (Auto) 10.9 Eos % (Auto) 2.3 Baso % (Auto) 0.8 Lymph # (Auto) 1.6 [place] # (Auto) 0.7 Eos # (Auto) 0.2 Baso # (Auto) 0.1 Abs Immat Gran (auto) 0.02 Absolute Neuts (auto) 4.0 Absolute Nucleated RBC 0.000 Nucleated RBC % (auto) 0.0 Anion Gap 14 Estim Creat Clear Calc 129.7 Estimated GFR > 60 Random Glucose 103 Calcium 9.6 D B-Natriuretic Peptide 685 H Respiratory Panel [place] See Note Adenovirus (Rapid PCR) Not Detected B.pert (TEM-PCR) Not Detected B.parapertussis DNA PCR Not Detected C. pneumoniae DNA (PCR) Not Detected Coronavirus OC43 (PCR) Not Detected Coronavirus HKU1 (PCR) Not Detected Coronavirus 229E (PCR) Not Detected Coronavirus NL63 (PCR) Not Detected Human Metapneumovir PCR Not Detected Influenza A (RT-PCR) Not Detected Influenza B (RT-PCR) Not Detected M. pneumoniae (PCR) Not Detected Parainfluenza 1 (PCR) Not Detected Parainfluenza 2 (PCR) Not Detected Parainfluenza 3 (PCR) Not Detected Parainfluenza 4 (PCR) Not Detected RSV (PCR) Not Detected Entero/Rhino (PCR) Not Detected SARS-CoV-2 RNA (RT-PCR) Not Detected Blood Type O Positive Antibody Screen NEGATIVE Crossmatch See Detail Assessment and Plan (1) Acute exacerbation of CHF (congestive heart failure): Status: Acute Plan 58 yo M with a pmhx of a fib on eliquis s/p recent successful ablation, HFpEF, v tach s/p ICD/pacemaker, previous alcohol use disorder, FARHEEN on CPAP, HTN, and GI bleed in 02/2024 s/p ?embolization at [facility], who presented to the ED early this AM due to L upper chest pain and SOB. He was found to have a BNP of 1206 (baseline <100), and hgb of 8.4. Acute on chronic HFpEF echo with grade 3 diastolic dysfunction responding well to IV diuretics -- will continue for now cardiology input appreciated -- started on aldacton 25, switched to diovan 160mg bid (From lisinopril), started on jardiance BP still remains largely uncontrolled -- will uptitrate meds a fib s/p ablation and hx v tach s/p ICD/pacemaker - EKG with SR occasional PVCs and prolonged QTc - continue eliquis and amiodarone + metoprolol anemia - stable H+H - recent GI embolization at [facility] and cardiac ablation hb stable borderline low mag and K stable, continue to monitor FARHEEN on CPAP - CPAP at night HTN see above full code dvt pptx -- eliquis reason for continued hospitalization: pt with on going acute HFpEF exacerbation requiring IV diuretics Quality Stroke Does the patient have a stroke diagnosis?: No VTE Prior VTE?: No VTE Risk Level:: Medical - moderate - high VTE Device Contraindication: N/A - Device Ordered VTE Drug Contraindication: N/A - Med Ordered
--- NOTE | 2024-04-27 11:17 | PM.DS ---
DS: Providers Provider Date of Service: 04/27/24 Date of admission: 04/26/24 09:01 Primary care physician: YESY Martinez Consults: 04/26/24 09:34 Consult to Cardiology Routine Consulting Provider: Joe Montemayor Reason for consultation: CHF exacerbation Has provider been notified: No DS: Diagnosis Discharge Diagnosis (1) Acute heart failure with preserved ejection fraction (HFpEF): Status: Acute (2) Uncontrolled hypertension: Status: Acute (3) ICD (implantable cardioverter-defibrillator) in place: Status: Acute (4) PAF (paroxysmal atrial fibrillation): Status: Acute (5) Morbid obesity: Status: Acute (6) FARHEEN on CPAP: Status: Acute DS: Summary Hospital Course Hospital Course: HPI From the admission H&P: 58 yo M with a pmhx of a fib on eliquis s/p recent successful ablation, HFpEF, v tach s/p ICD/pacemaker, previous alcohol use disorder, FARHEEN on CPAP, HTN, and GI bleed in 02/2024 s/p ?embolization at [facility], who presented to the ED early this AM due to L upper chest pain and SOB. He reports insomnia due to the pain and when he closes his eyes he feels like he is dying . No recent illness or sick contacts. Recent R forearm fx s/p fall and successful ablation for a fib on 04/17 at [facility]. He reports 1 episode of vomiting this AM but denies headache, congestion, abd pain, vomiting, diarrhea, melena, BRBPR, or LE edema. He reports a recent colonoscopy and endoscopy in the past 4 months. Hospital Course: Patient was treated with IV diuretics and was seen in consultation by Cardiology. He underwent 2D echo which showed preserved ejection fraction but grade 3 diastolic dysfunction. He was also initiated multiple anti hypertensives for significantly uncontrolled blood pressure. Over the course his hospitalization the patient has significant improvement in his symptoms. He will be transitioned to oral Lasix. He has been initiated on Jardiance 10 mg daily and Aldactone 25 mg daily. His lisinopril has been switched to Diovan. He will also be discharged on Norvasc 5 mg daily. He is to follow up with Cardiology as an outpatient. Time Attestation Discharge Coordination Time (in mins): 35 Quality: Safe Use of Opioids Does Pt have an Active Cancer Diagnosis on the Problem List?: No Quality: Stroke Does the patient have a stroke diagnosis?: No Physical Exam Vital Signs: Vital Signs: Last Vital Signs Temp 97.7 F 04/27/24 08:00 Pulse 62 04/27/24 09:35 Resp 15 04/27/24 09:35 BP 179/94 H 04/27/24 09:35 Pulse Ox 96 04/27/24 08:00 O2 Del Method Room Air 04/27/24 08:00 BMI result Body Mass Index 32.5 Const: Other: General - no acute distress, appears comfortable Cardiovascular - regular rate and rhythm, S1-S2 Lungs - normal respiratory effort, clear to auscultation bilaterally, no wheezing Abdomen - soft, nontender, no rebound or guarding Extremities - no edema bilaterally Neuro - awake and alert, no focal deficits DS: Data Data Completed and Pending Completed studies during hospitalization [Text1]: Procedures Assistance with Respiratory Ventilation, Less than 24 Consecutive Hours, Continuous Positive Airway Pressure (02/24/24) Detoxification Services for Substance Abuse Treatment (01/24/21) Excision of Duodenum, Via Natural or Artificial Opening Endoscopic, Diagnostic (02/24/24) Excision of Stomach, Pylorus, Via Natural or Artificial Opening Endoscopic, Diagnostic (02/24/24) Bahai of Cardiac Rhythm, Single (05/17/21) Labs on day of discharge: Laboratory Results - last 24 hr 04/26/24 04/26/24 04/27/24 08:07 11:04 07:51 WBC 6.5 RBC 4.15 L Hgb 9.8 L Hct 32.2 L MCV 77.6 L MCH 23.6 L MCHC 30.4 L RDW 18.1 H Plt Count 240 MPV 10.9 Immature Gran % (Auto) 0.3 Neut % (Auto) 61.2 Lymph % (Auto) 24.5 [place] % (Auto) 10.9 Eos % (Auto) 2.3 Baso % (Auto) 0.8 Lymph # (Auto) 1.6 [place] # (Auto) 0.7 Eos # (Auto) 0.2 Baso # (Auto) 0.1 Abs Immat Gran (auto) 0.02 Absolute Neuts (auto) 4.0 Absolute Nucleated RBC 0.000 Nucleated RBC % (auto) 0.0 Sodium 140 Potassium 3.5 Chloride 103 Carbon Dioxide 27 Anion Gap 14 BUN 12 Creatinine 0.88 Estim Creat Clear Calc 129.7 Estimated GFR > 60 Random Glucose 103 Calcium 9.6 D B-Natriuretic Peptide 685 H Respiratory Panel [place] See Note Adenovirus (Rapid PCR) Not Detected B.pert (TEM-PCR) Not Detected B.parapertussis DNA PCR Not Detected C. pneumoniae DNA (PCR) Not Detected Coronavirus OC43 (PCR) Not Detected Coronavirus HKU1 (PCR) Not Detected Coronavirus 229E (PCR) Not Detected Coronavirus NL63 (PCR) Not Detected Human Metapneumovir PCR Not Detected Influenza A (RT-PCR) Not Detected Influenza B (RT-PCR) Not Detected M. pneumoniae (PCR) Not Detected Parainfluenza 1 (PCR) Not Detected Parainfluenza 2 (PCR) Not Detected Parainfluenza 3 (PCR) Not Detected Parainfluenza 4 (PCR) Not Detected RSV (PCR) Not Detected Entero/Rhino (PCR) Not Detected SARS-CoV-2 RNA (RT-PCR) Not Detected Blood Type O Positive Antibody Screen NEGATIVE Crossmatch See Detail Discharge Plan Discharge Anticipated Discharge Date/Time: 04/27/24 11:08 Patient Disposition: Home, Self-Care Discharge Diagnosis: acute chf Referrals: Lisa Heard FNP [Primary Care Provider] - 1 Week Discharge Medications: New Jardiance 10 mg Tablet 10 mg PO DAILY Qty: 90 0RF furosemide 40 mg tablet 40 mg PO DAILY Qty: 30 0RF spironolactone 25 mg Tablet 25 mg PO DAILY Qty: 90 0RF Protocol: Hold for SBP< HOLD for SBP < : 90 valsartan 160 mg Tablet 160 mg PO BID Qty: 180 0RF Protocol: Hold for SBP< HOLD for SBP < : 90 amlodipine 5 mg tablet 5 mg PO DAILY Qty: 90 0RF Continued (DME) blood pressure monitor [Blood Pressure Kit] Kit See Rx Instructions .Route Qty: 1 0RF Rx Instructions: As directed Eliquis 5 mg tablet 5 mg PO BID 90 Days Qty: 180 1RF amiodarone 200 mg tablet 200 mg PO DAILY Qty: 90 3RF omeprazole 20 mg capsule,delayed release(DR/EC) 20 mg PO DAILY Qty: 90 0RF diphenhydramine-acetaminophen [Tylenol PM Extra Strength] 25-500 mg Tablet 2 tab PO BEDTIME PRN (Reason: Pain/Sleep) (DME) Blood Pressure Cuff Misc See Rx Instructions .Route Qty: 1 0RF Rx Instructions: As directed metoprolol succinate [Toprol XL] 100 mg tablet extended release 24 hr 100 mg PO DAILY Qty: 90 3RF Discontinued lisinopril 20 mg tablet 20 mg PO DAILY Discharge Orders: Discharge Order (Routine); Ordered 04/27/24 Ordered By: Frederic Arora Diet: Advance to usual diet Activity on Discharge: As tolerated Stand Alone Forms: Patient Portal Discharge page Print Language: [place] Care Plan Goals: To stay healthy and out of the hospital. Health Concerns: CHF Plan of Treatment: He will be started on multiple new medications Start Lasix 40 mg daily, Jardiance 10 mg daily, amlodipine 10 mg daily. Stop taking lisinopril and instead take Diovan 160 mg twice daily. Continue other medications as normal and follow up with Cardiology Assessment: see d/c summary
--- NOTE | 2024-04-27 11:41 | PM.PNCARD ---
Subjective Subjective Date of Service: 04/27/24 Principal diagnosis: CHF Interval history: Patient says he is feeling a lot better. He has diuresed about 2300 cc. He says that his shortness of breath orthopnea has gone. Leg edema is improved significantly. His blood pressure remains elevated. Review of Systems Review of Systems Yes all other systems are reviewed and are negative Physical Exam Vital Signs: Last Vital Signs Temp 97.7 F 04/27/24 08:00 Pulse 62 04/27/24 09:35 Resp 15 04/27/24 09:35 BP 179/94 H 04/27/24 09:35 Pulse Ox 96 04/27/24 08:00 O2 Del Method Room Air 04/27/24 08:00 BMI result Body Mass Index 32.5 Const General: cooperative, comfortable, no acute distress, alert, awake and Physically active Nutritional Appearance: obese Orientation/consciousness: patient oriented x3 Limitations: no limitations HEENT Head: Yes normocephalic and Yes atraumatic Neck Neck: Yes trachea midline, Yes supple and Yes no JVD Resp Effort & Inspection: normal respiratory effort Auscultation: rales Cardio Jugular venous distension: no JVD Palpation: normal PMI Rate: regular rate Rhythm: regular rhythm Heart sounds: S1 normal heart sound present, S2 normal heart sound present, no click, no gallops, no murmurs, no rubs and Other heart sounds present (S4 present) GI Auscultation: normal bowel sounds Skin General skin exam: no rashes or lesions noted Neuro General: patient oriented x3 and no focal motor deficits Extrem General: Yes no clubbing, cyanosis or edema Psych Appearance: grossly normal Objective Labs and Meds 04/27/24 07:51 04/27/24 07:51 Lab results: Laboratory Results - last 24 hr 04/26/24 04/26/24 04/27/24 08:07 11:04 07:51 WBC 6.5 RBC 4.15 L Hgb 9.8 L Hct 32.2 L MCV 77.6 L MCH 23.6 L MCHC 30.4 L RDW 18.1 H Plt Count 240 MPV 10.9 Immature Gran % (Auto) 0.3 Neut % (Auto) 61.2 Lymph % (Auto) 24.5 [place] % (Auto) 10.9 Eos % (Auto) 2.3 Baso % (Auto) 0.8 Lymph # (Auto) 1.6 [place] # (Auto) 0.7 Eos # (Auto) 0.2 Baso # (Auto) 0.1 Abs Immat Gran (auto) 0.02 Absolute Neuts (auto) 4.0 Absolute Nucleated RBC 0.000 Nucleated RBC % (auto) 0.0 Sodium 140 Potassium 3.5 Chloride 103 Carbon Dioxide 27 Anion Gap 14 BUN 12 Creatinine 0.88 Estim Creat Clear Calc 129.7 Estimated GFR > 60 Random Glucose 103 Calcium 9.6 D B-Natriuretic Peptide 685 H Respiratory Panel [facility] See Note Adenovirus (Rapid PCR) Not Detected B.pert (TEM-PCR) Not Detected B.parapertussis DNA PCR Not Detected C. pneumoniae DNA (PCR) Not Detected Coronavirus OC43 (PCR) Not Detected Coronavirus HKU1 (PCR) Not Detected Coronavirus 229E (PCR) Not Detected Coronavirus NL63 (PCR) Not Detected Human Metapneumovir PCR Not Detected Influenza A (RT-PCR) Not Detected Influenza B (RT-PCR) Not Detected M. pneumoniae (PCR) Not Detected Parainfluenza 1 (PCR) Not Detected Parainfluenza 2 (PCR) Not Detected Parainfluenza 3 (PCR) Not Detected Parainfluenza 4 (PCR) Not Detected RSV (PCR) Not Detected Entero/Rhino (PCR) Not Detected SARS-CoV-2 RNA (RT-PCR) Not Detected Blood Type O Positive Antibody Screen NEGATIVE Crossmatch See Detail Progress Note: A&P Assessment and plan (1) Acute heart failure with preserved ejection fraction (HFpEF): Status: Acute Assessment and Plan: Acute heart failure with preserved ejection fraction. Clinically doing extremely well. Agree with discharging home. Needs better blood pressure control, see below. I would also since send him home on 40 mg of Lasix and Jardiance 10 mg. Heart failure management was discussed. Continue spironolactone, valsartan. Add amlodipine. Continue rhythm control approach. (2) Uncontrolled hypertension: Status: Acute Assessment and Plan: Uncontrolled hypertension. Added spironolactone yesterday. Had amlodipine 5 mg to his regimen. Low-salt diet was discussed. Importance of good blood pressure control was discussed. May need further workup for secondary and resistant hypertension. (3) PAF (paroxysmal atrial fibrillation): Status: Acute Assessment and Plan: PF, continue amiodarone therapy. Status post ablation. Will follow-up with Dr. Chaudhary as outpatient. Continue full oral anticoagulation with apixaban. Will follow with him as outpatient. Patient can be discharged home today. Time Spent With Patient Time: Total time managing care of this patient today ____ minutes. Progress Note: Quality Stroke Does the patient have a stroke diagnosis?: No Procedures Date of Service Date of Service: 04/27/24
--- NOTE | 2024-04-27 11:42 | MHC.CM.PN ---
IMM 04/27. Pt self-care, lives at home with his girlfriend and daughter. Pt has a CPAP machine. Pts girlfriend will transport him home at discharge. HCP on file and verified. PCP: Lisa MARROQUIN
[2024-04-27 11:48] VITALS: BP 151/84; PULSE 66; RESP 19; TEMP 36.1; O2SAT 97
--- NOTE | 2024-04-27 14:09 | MHC.CM.PN ---
Pt is medically cleared for discharge home self-care, pts girlfriend will transport him home today.
== END 2024-04-27 14:32 | disposition home or self-care (01) | DRG 291 ==
LOC: HO.ED 07:50 → HO.EDOVER 09:09 → HO.IMC 18:08
PROVIDERS: Internal Medicine; Admitting Provider Physician Assistant; Emergency Provider Emergency Medicine; PCP Nurse Practitioner Family; Visit Provider Family Medicine
DX: I11.0 Hypertensive heart disease with heart failure (principal); I50.33 Acute on chronic diastolic (congestive) heart failure; I42.8 Other cardiomyopathies; I48.0 Paroxysmal atrial fibrillation; F10.91 Alcohol use, unspecified, in remission; D64.9 Anemia, unspecified; G47.33 Obstructive sleep apnea (adult) (pediatric); Z95.810 Presence of automatic (implantable) cardiac defibrillator; Z20.822 Contact with and (suspected) exposure to COVID-19; Z79.01 Long term (current) use of anticoagulants; Z79.899 Other long term (current) drug therapy
CPT/HCPCS: 36415; 71045; 73110; 80048; 80076; 82272; 82728; 82803; 83540; 83735; 83880; 84484; 85025; 85610; 86850; 86900; 86901; 86923; 87502; 87633; 87635; 93005; 93306; 94660; 99222; 99285; J1940; P9016; Q9957

== ENCOUNTER → 2024-04-26 04:19 | Outpatient (BNV) | payer OTHER, SELFPAY | PROVIDERS: Emergency Provider Emergency Medicine; Visit Provider Internal Medicine Cardiovascular Disease | DX: I50.30 Unspecified diastolic (congestive) heart failure (principal); I36.1 Nonrheumatic tricuspid (valve) insufficiency; I51.7 Cardiomegaly; R94.31 Abnormal electrocardiogram [ECG] [EKG] | CPT/HCPCS: 93010; 93306 ==

== ENCOUNTER → 2024-04-26 09:01 | Outpatient (BNV) | payer OTHER, SELFPAY | PROVIDERS: Admitting Provider Physician Assistant; Emergency Provider Emergency Medicine; Visit Provider Internal Medicine Cardiovascular Disease | DX: I50.9 Heart failure, unspecified (principal) | CPT/HCPCS: 99222; 99233 ==

== ENCOUNTER → 2024-04-26 09:01 | Outpatient (BNV) | payer OTHER, SELFPAY | PROVIDERS: Admitting Provider Physician Assistant; Emergency Provider Emergency Medicine; PCP Nurse Practitioner Family; Visit Provider Family Medicine | DX: I11.0 Hypertensive heart disease with heart failure (principal); I50.31 Acute diastolic (congestive) heart failure; I48.0 Paroxysmal atrial fibrillation; Z95.810 Presence of automatic (implantable) cardiac defibrillator; E66.01 Morbid (severe) obesity due to excess calories; G47.33 Obstructive sleep apnea (adult) (pediatric); Z99.89 Dependence on other enabling machines and devices | CPT/HCPCS: 99223; 99239 ==

== ENCOUNTER 2024-05-05 08:19 | Inpatient (IN) | payer OTHER, SELFPAY ==
[2024-05-05] VITALS (9 sets, daily range): BP systolic 135–164; BP diastolic 79–89; PULSE 58–65; RESP 16–22; TEMP 36–37.2; O2SAT 95–99; BMI 32.5
--- NOTE | ~2024-05-05 | CT_ITS ---
EXAMINATION: CT ABDOMEN AND PELVIS WITHOUT CONTRAST CLINICAL INFORMATION: abd pain COMPARISON: CT abdomen/pelvis 05/05/2024 TECHNIQUE: Multidetector volumetric imaging was performed from the superior aspect of the liver through the pubic symphysis after the administration of oral contrast. Sagittal and coronal reformatted images were obtained on the technologist's workstation. This CT examination was performed using dose optimization techniques as appropriate, variously including the following: *Automated exposure control *Adjustment of mA and/or kV according to patient size (this includes techniques or standardized protocols for targeted exams where dose is matched to indication/reason for exam; i.e. extremities or head) *Use of iterative reconstruction technique DLP: 1319 mGy-cm FINDINGS: VISUALIZED CHEST: Bibasilar atelectasis. Trace left pleural effusion, as before. Cardiomegaly without pericardial effusion. AICD/pacemaker lead terminating in the right ventricle. LIVER, GALLBLADDER, AND BILIARY TREE: The liver is normal in size, shape, and attenuation. No focal hepatic lesion or biliary ductal dilatation is present. The gallbladder is physiologically distended with dependently layering dense material. No gallbladder wall thickening or pericholecystic stranding. PANCREAS: Unremarkable. SPLEEN: Unremarkable. ADRENAL GLANDS: Unremarkable. KIDNEYS AND URETERS: The kidneys are normal in size, shape, and attenuation. No hydronephrosis, hydroureter, or calculi seen. No perinephric stranding. BLADDER: Unremarkable. GASTROINTESTINAL TRACT: Interval increase in mesenteric stranding along the mesenteric root. The stranding appears to be more associated with mesentery and lesser curvature of the pyloric stomach as opposed to pancreas or duodenum. The stomach is nondilated. Small volume free fluid subjacent to the pyloric stomach, increased from prior. Gastric wall thickening along the pyloric stomach is possible. Evaluation is partially obscured by metallic streak artifact from the gastroduodenal artery embolization coil pack. The small and large bowel is nondilated. Oral contrast opacifies normal small bowel loops. Minimal scattered colonic diverticulosis evidence of acute diverticulitis. Normal appendix. ABDOMINAL WALL: No significant hernia is appreciated. LYMPH NODES: Normal. VASCULAR: The aorta is nonaneurysmal with mild scattered atheromatous calcified indications. PELVIC VISCERA/BLADDER: Evaluation is partially limited by metallic streak artifact from adjacent left hip hardware. The visualized bladder is unremarkable. There are few coarse prostatic calcifications. The visualized prostate and seminal vesicles are otherwise normal. Small volume simple free fluid in the pouch of Jc, new from prior. OSSEOUS STRUCTURES: No acute or suspicious osseous abnormality. Intact left total hip arthroplasty. Moderate multilevel thoracolumbar spondylosis. CT/CT abdomen pelvis wo IV con IMPRESSION: 1. Interval increase in mesenteric stranding along the mesenteric root. The stranding appears to be more associated with mesentery and the lesser curvature of the pyloric stomach as opposed to pancreas or duodenum. Small volume free fluid subjacent to the pyloric stomach, increased from prior. Gastric wall thickening along the pyloric stomach is possible. Evaluation is partially obscured by metallic streak artifact from the gastroduodenal artery embolization coil pack. Taken together, these findings could represent recurrent upper GI bleed versus panniculitis. If clinically warranted, consider direct visualization with endoscopy for further assessment. 2. Cholelithiasis without evidence for acute cholecystitis. Fleischner guidelines were followed. Electronically signed by: Nila Robison DO 05/07/2024 06:01 PM EDT
--- NOTE | ~2024-05-05 | CT_ITS ---
EXAMINATION: CT ABDOMEN AND PELVIS WITHOUT CONTRAST CLINICAL INFORMATION: Abdominal pain. History of GDA embolization COMPARISON: 02/23/2024 TECHNIQUE: Multidetector volumetric imaging was performed from the superior aspect of the liver through the pubic symphysis. Sagittal and coronal reformatted images were obtained on the technologist's workstation. This CT examination was performed using dose optimization techniques as appropriate, variously including the following: *Automated exposure control *Adjustment of mA and/or kV according to patient size (this includes techniques or standardized protocols for targeted exams where dose is matched to indication/reason for exam; i.e. extremities or head) *Use of iterative reconstruction technique DLP: 964 mGy-cm FINDINGS: DECONTAMINATION TECHNICIAN: Epigastric embolization coils. Pacer/AICD. Nonobstructive bowel pattern. Phleboliths. Left total hip replacement. LUNG BASES: Lingular and left lower lobe atelectasis. Small left pleural effusion. Prominent heart with pacer/AICD. No pericardial effusion. LIVER, GALLBLADDER, AND BILIARY TREE: The liver is normal in size, shape, and attenuation. No focal hepatic lesion or biliary ductal dilatation is present. The gallbladder is unremarkable with no evidence of radiopaque gallstones, gallbladder wall thickening, or obvious pericholecystic inflammatory changes. PANCREAS: Unremarkable. SPLEEN: Unremarkable. ADRENAL GLANDS: Unremarkable. KIDNEYS AND URETERS: The kidneys are normal in size, shape, and attenuation. No hydronephrosis, hydroureter, or calculi seen. No perinephric stranding. BLADDER: Unremarkable. GASTROINTESTINAL TRACT: Study limited without oral contrast. Stomach is decompressed. Possible thickening distal stomach/pylorus, proximal duodenum. Transverse portion of the duodenum and other bowel loops without definite abnormality. Nonobstructive bowel pattern. Unremarkable appendix. Feces filled colon. PERITONEUM: New soft tissue stranding posterior aspect of the stomach/right upper quadrant and mesenteric root anterior to the transverse portion of the duodenum, inferior to GDA embolization coils producing artifact. ABDOMINAL WALL: No significant hernia is appreciated. LYMPH NODES: Normal. VASCULAR: Study limited without IV contrast. Atherosclerotic calcifications nonaneurysmal aorta. Normal caliber inferior vena cava. PELVIC VISCERA: Unremarkable. OSSEOUS STRUCTURES: Degenerative changes. No suspicious osseous lesions. Left total hip replacement. CT/CT abdomen pelvis wo IV con IMPRESSION: Interval appearance of epigastric/right upper quadrant mesenteric stranding. Patient with history of hemorrhage and prior GDA embolization coils. Findings suspicious for recurrent gastrointestinal hemorrhage. Electronically signed by: Karen Cruz MD 05/05/2024 10:11 AM EDT
[2024-05-05 08:45] LABS: MANUAL DIFF FLAG NO
--- NOTE | 2024-05-05 08:47 | ED.ABDPAIN ---
HPI - Abdominal Pain General Chief Complaint: Abdominal Pain Stated Complaint: Abd pain Time Seen by Provider: 05/05/24 08:31 Source: patient and RN notes reviewed Mode of arrival: ambulatory Limitations: no limitations History of Present Illness ED Provider: Megha Swann PA-C HPI narrative: This is a 58-year-old male, with a history of GI bleeding status post coiling at [facility], heart failure, hypertension, atrial fibrillation on Eliquis, FARHEEN, alcohol abuse, who presents emergency department with complaints of abdominal pain which started last night. Patient states that he ate dinner around 6:00 p.m. took a nap and woke with abdominal pain at around 8:00 p.m. last night. Patient states that the abdominal pain is constant. When asked to describe his pain, he is unable to discern whether not this is a burning pain, sharp pain or cramping leg pain, he is states that this pain is similar to the pain he had in the past which caused him to be transferred to [facility]. He endorses chills, no fevers. Denies any coffee-ground emesis. He states that he has had nausea and 4 episodes of vomiting. He states during his last episode of vomiting which was earlier this morning he noticed a small drop of blood mixed into the vomit. No hematochezia or melena. Reports his last bowel movement was yesterday, normal. He is currently on Eliquis, states that he did not take his dose last night or this morning. Last dose of Eliquis was yesterday morning (05/04). Of his past medical history, patient was admitted in October and December of 2023 at [facility] with a GI bleed. Per scan notes, he had a embolization of GDA due to periduodenal hematoma, he was again admitted to the hospital on February 24, 2024 worse similar like presentation, found to have abdominal pain with acute anemia and imaging concerning for GI bleed. Of recent, he was admitted on April 26, 2024 for CHF. He does admit to alcohol use, he states that he has a history of alcohol use disorder however states that he has not been drinking alcohol every day. He last drank yesterday, reporting that he drank several beers. MD elicited complaint: abdominal pain Pertinent past history: gastrointestinal bleeding Onset (ago): day(s) Pain Consistency: constant Location: diffuse Severity: severe Radiation: none Migration to: no migration Relieving factors: movement Associated symptoms: nausea, vomiting and chills Related Data Home Medications ?Medication ?Instructions ?Recorded ?Confirmed diphenhydramine 25 2 tab PO BEDTIME PRN Pain/Sleep 04/26/24 05/05/24 mg-acetaminophen 500 mg tablet (Tylenol PM Extra Strength) omeprazole 20 mg capsule,delayed 20 mg PO DAILY@0630 05/05/24 05/05/24 release Previous Rx's ?Medication ?Instructions ?Recorded blood pressure monitor (Blood #1 ea 04/25/23 Pressure Kit) apixaban 5 mg tablet (Eliquis) 5 mg PO BID 90 days #180 tabs 12/04/23 amiodarone 200 mg tablet 200 mg PO DAILY #90 tabs 12/26/23 metoprolol succinate 100 mg 100 mg PO DAILY #90 tabs 02/15/24 tablet,extended release 24 hr (Toprol XL) miscellaneous medical supply #1 ea 03/06/24 (Blood Pressure Cuff) amlodipine 5 mg tablet 5 mg PO DAILY #90 tabs 04/27/24 empagliflozin 10 mg tablet 10 mg PO DAILY #90 tabs 04/27/24 (Jardiance) furosemide 40 mg tablet 40 mg PO DAILY #30 tabs 04/27/24 spironolactone 25 mg tablet 25 mg PO DAILY #90 tabs 04/27/24 valsartan 160 mg tablet 160 mg PO BID #180 tabs 04/27/24 Allergies Allergy/AdvReac Type Severity Reaction Status Date / Time No Known Allergies Allergy Verified 05/05/24 08:23 Review of Systems Review of Systems Yes all other systems are reviewed and are negative Constitutional: Reports as per HPI [facility] Past Medical History Medical History Anemia Acute exacerbation of CHF (congestive heart failure) Morbid obesity Gastrointestinal bleeding History of cardioversion FARHEEN on CPAP Alcohol abuse HTN (hypertension) (HFpEF) heart failure with preserved ejection fraction Surgical History History of cardiac radiofrequency ablation History of esophagogastroduodenoscopy (EGD) Hx of colonoscopy Status post ORIF of fracture of ankle S/P hip replacement Family History Family History Mother HTN (hypertension) Diabetes mellitus Father Diabetes mellitus HTN (hypertension) Maternal Uncle Colon cancer Social History Social History Household Members: Significant Other and Children Household Members Other:: Girlfriend and daughter Housing: Apartment Are you a primary acute care nursing assistant to a significant other at home: No Do you presently have visiting nurse or other home services: No Alcohol intake: former Patient Tobacco Use Status: Never used Tobacco Smoked in Last 30 Days: No e-Cigarette/Vaping Use: Never Used Second Hand Smoke Exposure: No Substance Use Type: Marijuana Advance Directives: Yes Advance Directives on File: Yes Advance Directives Date on File: 01/25/21 Do you have a plan to hurt others: No Plan Nutrition Risks: No Nutritional Risk service: No Current occupational status: retired Current occupation: rt handed Cognitive needs: No Hearing needs: No Vision needs: No Physical Exam ED Vital Signs: Vital Signs - 24 hr 05/05/24 08:22 05/05/24 09:18 05/05/24 09:23 Temperature 97.4 F 98.3 F Pulse Rate 65 62 Respiratory Rate 18 22 H 20 Blood Pressure 144/83 H 159/86 H Pulse Oximetry 99 98 Oxygen Delivery Method Room Air Room Air 05/05/24 09:58 05/05/24 11:40 Temperature 99 F Pulse Rate 61 Respiratory Rate 18 16 Blood Pressure 135/79 Pulse Oximetry 95 Oxygen Delivery Method Room Air BMI result Body Mass Index 32.5 Const General: cooperative, comfortable and no acute distress Orientation/consciousness: patient oriented x3 Limitations: no limitations [facility] Head: Yes normal to inspection, Yes normocephalic and Yes atraumatic Ears: hearing grossly normal bilaterally General nose exam: Normal external nose present Face and sinus: Yes normal facial exam Mouth: Normal oral and palatal mucosa present, oropharynx normal and moist mucous membranes Throat: Yes posterior oropharynx normal Eyes General: appearance normal, both eyes and all related structures Eyelids: Yes eyelids normal Conjunctivae: conjunctivae normal Sclerae: sclerae normal Pupils: Equal, round and reactive pupils present EOM: EOMs intact bilaterally Neck Neck: Yes normal visual inspection, Yes full ROM and Yes no lymphadenopathy Lymphatic: no lymphadenopathy noted Chest Chest palpation & inspection: normal inspection of the chest Resp Effort & Inspection: normal respiratory effort and able to speak in complete sentences Auscultation: clear to auscultation bilaterally, no crackles, no rales, no rhonchi and no wheezes Cardio Rate: regular rate Rhythm: regular rhythm Heart sounds: S1 normal heart sound present and S2 normal heart sound present GI Other: Abdomen is soft diffuse tenderness throughout, with more tenderness palpation in the right upper quadrant. Rectal examination performed with Rupa Infante RN, present at all times. Light brown stool noted, good rectal tone. No sylvia blood or bloody stool noted. Skin General skin exam: no rashes or lesions noted Trauma: no lacerations or abrasions Wounds: no wounds Neuro General: patient oriented x3 and moves all extremities Cranial nerves: Yes Equal, round and reactive pupils present Extrem General: Yes normal to inspection Right upper extremity: normal to inspection Left upper extremity: normal to inspection Right lower extremity: normal to inspection Left lower extremity: normal to inspection Course Reevaluation(s) Reevaluation #1: BUN elevated at 34, creatinine 2.1, baseline around 0.8. Alk phos elevated at 138. Lipase elevated at 299, unclear if this is an acute pancreatitis like picture. Given elevated kidney function, patient has SAUL, will treat with IV fluids, will obtain CT abdomen and pelvis for further diagnostics Time: 09:31 Reevaluation #2: CT abdomen and pelvis without IV contrast revealing interval appearance of epigastric/right upper quadrant mesenteric stranding. Given patient with history of hemorrhage and prior GDA embolization coils, findings suspicious for recurrent gastrointestinal hemorrhage. Discussed findings with patient as well as my attending physician. Page placed out to Dr. Jimenez. Time: 10:30 Reevaluation #3: Still awaiting for Dr. Jimenez. Repeat blood pressure 160/90, all other vital signs within normal limits. He is resting comfortably. No active hematemesis. Will continue to closely monitor. Time: 11:08 Additional Reevaluation(s): 1120 - Dr. Jimenez returns call, he is presently on his way into the emergency room for evaluation. Discussed with patient, he remained stable. We will continue to closely monitor. 1230 - Dr. Jimenez came and evaluated patient, recommending hospital admission. It is unclear if this is an active bleed, it was thought that this is likely a progression of hematoma,. No urgent intervention needed at this time. Patient may also have pancreatitis which is contributing to abdominal pain. Patient will be made NPO, with endoscopy scheduled for tomorrow. Recommending medical admission, with GI consultation. We will continue to closely monitor. Patient remained stable. Transfer of care initiated. Medical Decision Making Medical Decision Making [facility] Narrative: This is a 58-year-old male, with a history of GI bleeding status post coiling at [facility], heart failure, hypertension, atrial fibrillation, FARHEEN, alcohol abuse, who presents emergency department with complaints of abdominal pain which started last night. On arrival, vital signs within normal limits. He is speaking in full sentences. He does have tenderness palpation in the right upper quadrant and epigastric region as well as diffusely throughout the abdomen. Abdomen is soft. He is afebrile. He reports that he has had abdominal pain and 4 episodes of vomiting. He does report small and then quarter-size bright red blood in vomit several hours ago. Denies any other blood in the vomit. He is urinating freely. No symptoms. IV Protonix also administered. Differential Diagnosis Differential Diagnoses: The differential diagnosis associated with the presentation includes GI bleed, diverticulitis, diverticulosis, small bowel obstruction, pancreatitis Admission/Observation Consideration of admission/observation: Escalation of care including admission/observation considered Lab Data [facility] Lab Attestation statement: I reviewed the patient's lab results. Slight leukocytosis at 11.1, microcytic anemia with an H&H of 11.4/37.3. Creatinine 2.19, BUN 34, alk phos elevated at 138, lipase elevated at 299. Stool occult negative 05/05/24 08:41 05/05/24 08:41 Labs: Lab Results 05/05/24 05/05/24 05/05/24 Range/Units 08:41 09:35 11:49 WBC 11.1 H (4.8-10.8) X10*3/uL RBC 4.76 (4.60-5.80) X10*6/uL Hgb 11.4 L (14.0-18.0) g/dl Hct 37.3 L (42.0-52.0) % MCV 78.4 L (80.0-98.0) fL MCH 23.9 L (27.0-33.0) pg MCHC 30.6 L (31.0-36.0) g/dl RDW 17.3 H (11.0-16.0) % Plt Count 343 D (160-400) X10*3/uL MPV 10.6 (9.4-12.4) fL Immature Gran % (Auto) 0.4 (0.0-0.4) % Neut % (Auto) 76.6 H (45-73) % Lymph % (Auto) 14.6 L (20-40) % [place] % (Auto) 7.6 (2-11) % Eos % (Auto) 0.3 (0-4) % Baso % (Auto) 0.5 (0-2) % Lymph # (Auto) 1.6 (1.2-4.9) X10*3/uL [place] # (Auto) 0.8 (0.1-1.2) X10*3/uL Eos # (Auto) 0.0 (0.0-0.4) X10*3/uL Baso # (Auto) 0.1 (0.0-0.2) X10*3/uL Abs Immat Gran (auto) 0.04 H (0.00-0.03) X10*3/uL Absolute Neuts (auto) 8.5 H (2.0-8.3) x10*3/uL Absolute Nucleated RBC 0.000 (0.0-0.012) X10*3/uL Nucleated RBC % (auto) 0.0 (0.0-0.2) /100WBC Sodium 139 (135-145) mmol/L Potassium 5.0 D (3.3-5.1) mmol/L Chloride 104 (96-108) mmol/L Carbon Dioxide 26 (22-29) mmol/L Anion Gap 14 (12-20) BUN 34 H (9-16) mg/dL Creatinine 2.19 H (0.5-1.4) mg/dL Estim Creat Clear Calc 52.1 Estimated GFR 31 Random Glucose 120 H (60-115) mg/dL Calcium 9.6 (8.4-10.2) mg/dL Total Bilirubin 0.8 (0.0-1.0) mg/dL AST 19 (5-37) U/L ALT 13 (0-40) U/L Alkaline Phosphatase 138 H (39-117) U/L Total Protein 7.6 (6.5-8.0) g/dL Albumin 4.1 (3.5-5.0) g/dL Lipase 299 H (8-78) U/L Urine Color Yellow Urine Appearance Clear Urine pH 7.0 (5.0-9.0) Ur Specific [place] 1.020 (1.005-1.025) Urine Protein 30 (1+) H (Neg-Trace) mg/dL Urine Glucose (UA) >=1000 H (Negative) mg/dL Urine Ketones Negative (Negative) mg/dL Urine Blood Negative (Negative) Urine Nitrite Negative (Negative) Ur Leukocyte Esterase Negative (Negative) Urine RBC 0-2 (0-2) /HPF Urine WBC 0-5 (0-5) /HPF Ur Squamous Epith Cells 0-2 (0-2) /HPF Urine Bacteria None Seen (None Seen) Hyaline Casts 0-2 (0-2) /LPF Stool Occult Blood NEGATIVE (NEGATIVE) Ethyl Alcohol < 10 mg/dL Blood Type Antibody Screen 05/05/24 Range/Units 12:28 WBC (4.8-10.8) X10*3/uL RBC (4.60-5.80) X10*6/uL Hgb (14.0-18.0) g/dl Hct (42.0-52.0) % MCV (80.0-98.0) fL MCH (27.0-33.0) pg MCHC (31.0-36.0) g/dl RDW (11.0-16.0) % Plt Count (160-400) X10*3/uL MPV (9.4-12.4) fL Immature Gran % (Auto) (0.0-0.4) % Neut % (Auto) (45-73) % Lymph % (Auto) (20-40) % [place] % (Auto) (2-11) % Eos % (Auto) (0-4) % Baso % (Auto) (0-2) % Lymph # (Auto) (1.2-4.9) X10*3/uL [place] # (Auto) (0.1-1.2) X10*3/uL Eos # (Auto) (0.0-0.4) X10*3/uL Baso # (Auto) (0.0-0.2) X10*3/uL Abs Immat Gran (auto) (0.00-0.03) X10*3/uL Absolute Neuts (auto) (2.0-8.3) x10*3/uL Absolute Nucleated RBC (0.0-0.012) X10*3/uL Nucleated RBC % (auto) (0.0-0.2) /100WBC Sodium (135-145) mmol/L Potassium (3.3-5.1) mmol/L Chloride (96-108) mmol/L Carbon Dioxide (22-29) mmol/L Anion Gap (12-20) BUN (9-16) mg/dL Creatinine (0.5-1.4) mg/dL Estim Creat Clear Calc Estimated GFR Random Glucose (60-115) mg/dL Calcium (8.4-10.2) mg/dL Total Bilirubin (0.0-1.0) mg/dL AST (5-37) U/L ALT (0-40) U/L Alkaline Phosphatase (39-117) U/L Total Protein (6.5-8.0) g/dL Albumin (3.5-5.0) g/dL Lipase (8-78) U/L Urine Color Urine Appearance Urine pH (5.0-9.0) Ur Specific [place] (1.005-1.025) Urine Protein (Neg-Trace) mg/dL Urine Glucose (UA) (Negative) mg/dL Urine Ketones (Negative) mg/dL Urine Blood (Negative) Urine Nitrite (Negative) Ur Leukocyte Esterase (Negative) Urine RBC (0-2) /HPF Urine WBC (0-5) /HPF Ur Squamous Epith Cells (0-2) /HPF Urine Bacteria (None Seen) Hyaline Casts (0-2) /LPF Stool Occult Blood (NEGATIVE) Ethyl Alcohol mg/dL Blood Type O Positive Antibody Screen NEGATIVE Radiology Impression Discussion of test interpretation with radiology: I have reviewed the radiologist's reading. Radiologist Impression: FINDINGS: LOOM CLEANER: Epigastric embolization coils. Pacer/AICD. Nonobstructive bowel pattern. Phleboliths. Left total hip replacement. LUNG BASES: Lingular and left lower lobe atelectasis. Small left pleural effusion. Prominent heart with pacer/AICD. No pericardial effusion. LIVER, GALLBLADDER, AND BILIARY TREE: The liver is normal in size, shape, and attenuation. No focal hepatic lesion or biliary ductal dilatation is present. The gallbladder is unremarkable with no evidence of radiopaque gallstones, gallbladder wall thickening, or obvious pericholecystic inflammatory changes. PANCREAS: Unremarkable. SPLEEN: Unremarkable. ADRENAL GLANDS: Unremarkable. KIDNEYS AND URETERS: The kidneys are normal in size, shape, and attenuation. No hydronephrosis, hydroureter, or calculi seen. No perinephric stranding. BLADDER: Unremarkable. GASTROINTESTINAL TRACT: Study limited without oral contrast. Stomach is decompressed. Possible thickening distal stomach/pylorus, proximal duodenum. Transverse portion of the duodenum and other bowel loops without definite abnormality. Nonobstructive bowel pattern. Unremarkable appendix. Feces filled colon. PERITONEUM: New soft tissue stranding posterior aspect of the stomach/right upper quadrant and mesenteric root anterior to the transverse portion of the duodenum, inferior to GDA embolization coils producing artifact. ABDOMINAL WALL: No significant hernia is appreciated. LYMPH NODES: Normal. VASCULAR: Study limited without IV contrast. Atherosclerotic calcifications nonaneurysmal aorta. Normal caliber inferior vena cava. PELVIC VISCERA: Unremarkable. OSSEOUS STRUCTURES: Degenerative changes. No suspicious osseous lesions. Left total hip replacement. CT/CT abdomen pelvis wo IV con IMPRESSION: Interval appearance of epigastric/right upper quadrant mesenteric stranding. Patient with history of hemorrhage and prior GDA embolization coils. Findings suspicious for recurrent gastrointestinal hemorrhage. Electronically signed by: Karen Cruz MD 05/05/2024 10:11 AM EDT Dictated By: Karen Cruz MD Chronic Conditions Patient?s care impacted by: Other (GDA artery coiling > hx of GI bleed) Medications Administered Generic Name Dose Route Start Last Admin Trade Name Freq PRN Reason Stop Dose Admin Amiodarone HCl 200 mg 05/05/24 14:15 05/05/24 14:33 Amiodarone Hcl 200 Mg Tablet PO 200 mg DAILY TIGIST Administration Metoprolol Succinate 100 mg 05/05/24 14:30 05/05/24 14:39 Metoprolol Succinate Er 100 Mg Tab.Er.24h PO Not Given DAILY TIGIST Protocol Discontinued Medications Generic Name Dose Route Start Last Admin Trade Name Freq PRN Reason Stop Dose Admin Sodium Chloride 1,000 mls @ 999 mls/hr 10/20/24 09:14 05/05/24 12:23 Ns IV 05/05/24 10:14 Infused .Q1H1M ONE Infusion Morphine Sulfate 4 mg 05/05/24 09:10 05/05/24 09:18 Morphine Sulfate 4 Mg/Ml Cartridge IVPUSH 05/05/24 09:11 4 mg ONCE ONE Administration Protocol Ondansetron HCl 4 mg 05/05/24 09:10 05/05/24 09:18 Ondansetron Hcl 4 Mg/2 Ml Vial IVPUSH 05/05/24 09:11 4 mg ONCE ONE Administration Pantoprazole Sodium 40 mg 05/05/24 09:20 05/05/24 09:32 Pantoprazole Sodium 40 Mg/10 Ml Vial IVPUSH 05/05/24 09:21 40 mg ONCE ONE Administration Critical Care Time Critical Care Time Critical Care Time: Yes Total Critical Care Time: 40 Attestation: I have personally provided critical care time exclusive of time spent on separately billable procedures. Time includes review of lab data, radiology results, discussion with consultants, and monitoring for potential decompensation. Intervention performed as documented. Discharge Plan Discharge Clinical Impression: SAUL (acute kidney injury), Chronic GI hemorrhage Abdominal pain Qualifiers: Abdominal location: generalized Qualified Code(s): R10.84 - Generalized abdominal pain Patient Disposition: Admitted As Inpatient Interventions: Admission Worksheet (ED) Last Done: 05/05/24 14:50
[2024-05-05 08:49] LABS: Basophils Absolute Auto 0.1 X10*3/uL (0.0-0.2); Basophils Percent Auto 0.5 % (0-2); Eosinophils Percent Auto 0.3 % (0-4); Hematocrit 37.3 % (42.0-52.0); Hemoglobin 11.4 g/dl (14.0-18.0); Imm Gran Abs Auto 0.04 X10*3/uL (0.00-0.03); Imm Gran Pct Auto 0.4 % (0.0-0.4); Lymphocytes Absolute Auto 1.6 X10*3/uL (1.2-4.9); Lymphocytes Percent Auto 14.6 % (20-40); Mean Corpuscular HGB Conc 30.6 g/dl (31.0-36.0); Mean Corpuscular Hemoglobin 23.9 pg (27.0-33.0); Mean Corpuscular Volume 78.4 fL (80.0-98.0); Mean Platelet Volume 10.6 fL (9.4-12.4); Monocytes Absolute Auto 0.8 X10*3/uL (0.1-1.2); Monocytes Percent Auto 7.6 % (2-11); Neutrophils Absolute Auto 8.5 x10*3/uL (2.0-8.3); Neutrophils Percent Auto 76.6 % (45-73); Platelet Count 343 X10*3/uL (160-400); Red Blood Count 4.76 X10*6/uL (4.60-5.80); Red Cell Distribution Width 17.3 % (11.0-16.0); White Blood Count 11.1 X10*3/uL (4.8-10.8)
[2024-05-05 09:05] LABS: Alanine Aminotransferase 13 U/L (0-40); Albumin Level 4.1 g/dL (3.5-5.0); Alkaline Phosphatase 138 U/L (39-117); Anion Gap 14 (12-20); Aspartate Amino Transferase 19 U/L (5-37); Bilirubin Total 0.8 mg/dL (0.0-1.0); Blood Urea Nitrogen 34 mg/dL (9-16); Calcium 9.6 mg/dL (8.4-10.2); Carbon Dioxide 26 mmol/L (22-29); Chloride 104 mmol/L (96-108); Creatinine Clr Calc Pharmacy 52.1; Estimated Glomerular Filt Rate 31; Glucose Random 120 mg/dL (60-115); Sodium 139 mmol/L (135-145); Total Protein 7.6 g/dL (6.5-8.0)
[2024-05-05] MEDS: ondansetron HCL 4 MG/2 ML VIAL IVPUSH ×2 (09:18→16:59)
[2024-05-05] MEDS: Morphine Sulfate 4 MG/ML CARTRIDGE IVPUSH ×3 (09:18→20:02)
[2024-05-05] MEDS: 0.9 % Sodium Chloride 1,000 ML 999 ML IV (09:23)
[2024-05-05] MEDS: Pantoprazole Sodium 40 MG/10 ML VIAL IVPUSH (09:32)
[2024-05-05 09:39] LABS: OBS Int Ctl Valid YES; OBS1 NEGATIVE (NEGATIVE)
--- NOTE | 2024-05-05 09:40 | PC.NURSE ---
Pt comes from home for abdominal pain, nausea/vomiting starting last night. Pt states he ate dinner last night and took a nap, after that the pain and nausea started. Hx of recent abdominal surgery and GI bleed. Pt states he has not noticed any blood in his vomit or stool. A/ox4, no increased wob/sob noted, lung sounds cta bilaterally, s1 and s2 heard, placed on cardiac exercise specialist for safety, HR 60s, abdomen tender on palpation. Labs and OBSX collected and sent to lab, pending results at this time. 20g IV placed in left forearm. Medicated per MAR with 4mg Morphine, 4mg Zofran, 40mg Protonix, and 1L NS hanging now. Pt taken to CT. Resting in bed quietly, all needs met at this time.
[2024-05-05 10:02] LABS: Lipase 299 U/L (8-78)
[2024-05-05 11:57] LABS: Appearance Urine Clear; Color Urine Yellow; Glucose Urine UA >=1000 mg/dL (Negative); Leukocyte Esterase Urine Negative (Negative); Nitrite Urine Negative (Negative); UMIC TRIGGER UACC YES; Urine Blood Negative (Negative); Urine Ketones Negative (Negative); Urine Protein 30 (1+) mg/dL (Neg-Trace)
[2024-05-05 12:02] LABS: Bacteria Urine None Seen (None Seen); Hyaline Casts Urine 0-2 /LPF (0-2); RBC Urine 0-2 /HPF (0-2); Squamous Epithelial Cell Urine 0-2 /HPF (0-2); WBC Urine 0-5 /HPF (0-5)
--- NOTE | 2024-05-05 13:29 | PM.EVENT ---
Event Note Date of Service: 05/05/24 Event Note: GI consult dictated FGD 05/06 for further evaluation of abd pain, n/v. Mr Osorio is aware of risks and benefits and agrees to proceed. Time Spent With Patient Time: Total time managing care of this patient today ____ minutes.
[2024-05-05 13:30] LABS: Ethanol < 10 mg/dL
--- NOTE | 2024-05-05 13:59 | P.HPHOSP_ITS ---
History of Present Illness Date of Service: 05/05/24 Chief Complaint: abd pain 58-year-old male, with a history of GI bleeding status post coiling at [facility], heart failure, hypertension, atrial fibrillation on Eliquis, FARHEEN, alcohol abuse, who presents emergency department with complaints of abdominal pain which started last night. Patient states that he ate dinner around 6:00 p.m. took a nap and woke with abdominal pain at around 8:00 p.m. last night. Patient states that the abdominal pain is constant. When asked to describe his pain, he is unable to discern whether not this is a burning pain, sharp pain or cramping leg pain, he is states that this pain is similar to the pain he had in the past which caused him to be transferred to [facility]. He endorses chills, no fevers. Denies any coffee-ground emesis. He states that he has had nausea and 4 episodes of vomiting. He states during his last episode of vomiting which was earlier this morning he noticed a small drop of blood mixed into the vomit. No hematochezia or melena. Reports his last bowel movement was yesterday, normal. He is currently on Eliquis, states that he did not take his dose last night or this morning. Last dose of Eliquis was yesterday morning (05/04). Review of Systems 2 Review of Systems: Denies chest pain Denies shortness of breath Admits nausea vomiting; denies diarrhea Denies fever chills [facility] Medical History Anemia Acute exacerbation of CHF (congestive heart failure) Morbid obesity Gastrointestinal bleeding History of cardioversion FARHEEN on CPAP Alcohol abuse HTN (hypertension) (HFpEF) heart failure with preserved ejection fraction Family History Mother HTN (hypertension) Diabetes mellitus Father Diabetes mellitus HTN (hypertension) Maternal Uncle Colon cancer Surgical History History of cardiac radiofrequency ablation History of esophagogastroduodenoscopy (EGD) Hx of colonoscopy Status post ORIF of fracture of ankle S/P hip replacement Social History Household Members: Significant Other and Children Household Members Other:: Girlfriend and daughter Housing: Apartment Are you a primary lpn care manager to a significant other at home: No Do you presently have visiting nurse or other home services: No Alcohol intake: former Patient Tobacco Use Status: Never used Tobacco e-Cigarette/Vaping Use: Never Used Second Hand Smoke Exposure: No Substance Use Type: Marijuana Advance Directives Date on File: 01/25/21 service: No Current occupational status: retired Current occupation: rt handed Cognitive needs: No Hearing needs: No Vision needs: No Meds Allergies Allergy/AdvReac Type Severity Reaction Status Date / Time No Known Allergies Allergy Verified 05/05/24 08:23 Active Medications: Current Medications Acetaminophen (Acetaminophen 325 Mg Tablet) 650 mg PO Q6H PRN PRN Reason: Pain, Mild (Pain Scale 1-3), fever or headache Calcium Carbonate (Calcium Carbonate 750 Mg Tab.Chew) 750 mg PO Q4H PRN PRN Reason: Heartburn Magnesium Hydroxide (Milk Of Magnesia 30 Ml Oral.Susp) 30 ml PO DAILY PRN PRN Reason: Constipation Melatonin (Melatonin 3 Mg Tablet) 6 mg PO BEDTIME PRN PRN Reason: Insomnia Morphine Sulfate (Morphine Sulfate 4 Mg/Ml Cartridge) 4 mg IVPUSH Q4H PRN; Protocol PRN Reason: Pain, Severe (Pain Scale 7-10) Sodium Chloride (0.9 % Sodium Chloride Flush 3 Ml Syringe) 3 ml IVFLUSH QSHIFT [facility] Home Medications ?Medication ?Instructions ?Recorded ?Confirmed ?Last Taken ?Type diphenhydramine 25 2 tab PO BEDTIME PRN Pain/Sleep 04/26/24 04/26/24 04/25/24 History mg-acetaminophen 500 mg tablet (Tylenol PM Extra Strength) Physical Exam 2 Vital Signs and Narrative: Vital Signs: Last Vital Signs Temp 99 F 05/05/24 11:40 Pulse 61 05/05/24 11:40 Resp 16 05/05/24 11:40 BP 135/79 05/05/24 11:40 Pulse Ox 95 05/05/24 11:40 O2 Del Method Room Air 05/05/24 11:40 BMI result Body Mass Index 32.5 Const: Other: Awake alert oriented x3 no acute distress Resp: Other: Clear to auscultation bilaterally no rales rhonchi or wheezes Cardio: Other: No S4; positive S1-S2; no S3 murmurs rubs or gallops GI: Other: Soft diffusely tender without rebound. Quiet bowel sounds Neuro: Other: Cranial nerves 2 through 12 grossly intact as tested. Sensation intact motor 5/5 all extremities cognition appropriate Extrem: Other: No edema bilaterally Results Labs 05/05/24 08:41 05/05/24 08:41 Labs: Laboratory Results - last 24 hr 05/05/24 05/05/24 05/05/24 08:41 09:35 11:49 MCV 78.4 L MCH 23.9 L MCHC 30.6 L RDW 17.3 H Plt Count 343 D MPV 10.6 Immature Gran % (Auto) 0.4 Neut % (Auto) 76.6 H Lymph % (Auto) 14.6 L Lea % (Auto) 7.6 Eos % (Auto) 0.3 Baso % (Auto) 0.5 Lymph # (Auto) 1.6 Lea # (Auto) 0.8 Eos # (Auto) 0.0 Baso # (Auto) 0.1 Abs Immat Gran (auto) 0.04 H Absolute Neuts (auto) 8.5 H Absolute Nucleated RBC 0.000 Nucleated RBC % (auto) 0.0 Anion Gap 14 Estim Creat Clear Calc 52.1 Estimated GFR 31 Random Glucose 120 H Calcium 9.6 Total Bilirubin 0.8 AST 19 ALT 13 Alkaline Phosphatase 138 H Total Protein 7.6 Albumin 4.1 Lipase 299 H Urine Color Yellow Urine Appearance Clear Urine pH 7.0 Ur Specific Mchenry 1.020 Urine Protein 30 (1+) H Urine Glucose (UA) >=1000 H Urine Ketones Negative Urine Blood Negative Urine Nitrite Negative Ur Leukocyte Esterase Negative Urine RBC 0-2 Urine WBC 0-5 Ur Squamous Epith Cells 0-2 Urine Bacteria None Seen Hyaline Casts 0-2 Stool Occult Blood NEGATIVE Ethyl Alcohol < 10 Blood Type Antibody Screen 05/05/24 12:28 MCV MCH MCHC RDW Plt Count MPV Immature Gran % (Auto) Neut % (Auto) Lymph % (Auto) Lea % (Auto) Eos % (Auto) Baso % (Auto) Lymph # (Auto) Lea # (Auto) Eos # (Auto) Baso # (Auto) Abs Immat Gran (auto) Absolute Neuts (auto) Absolute Nucleated RBC Nucleated RBC % (auto) Anion Gap Estim Creat Clear Calc Estimated GFR Random Glucose Calcium Total Bilirubin AST ALT Alkaline Phosphatase Total Protein Albumin Lipase Urine Color Urine Appearance Urine pH Ur Specific Mchenry Urine Protein Urine Glucose (UA) Urine Ketones Urine Blood Urine Nitrite Ur Leukocyte Esterase Urine RBC Urine WBC Ur Squamous Epith Cells Urine Bacteria Hyaline Casts Stool Occult Blood Ethyl Alcohol Blood Type O Positive Antibody Screen NEGATIVE Imaging Radiologist's Impressions: Impressions Abdomen/Pelvis CT 05/05/24 09:30 IMPRESSION: Interval appearance of epigastric/right upper quadrant mesenteric stranding. Patient with history of hemorrhage and prior GDA embolization coils. Findings suspicious for recurrent gastrointestinal hemorrhage. Electronically signed by: Karen Cruz MD 05/05/2024 10:11 AM EDT RP Assessment and Plan (1) Abdominal pain: Qualifiers: Abdominal location: generalized Qualified Code(s): R10.84 - Generalized abdominal pain Status: Acute (2) SAUL (acute kidney injury): Status: Acute (3) Acute heart failure with preserved ejection fraction (HFpEF): Status: Acute Plan 58-year-old male with a history of GI bleeding status post coil at [facility] within the last month presents with diffuse abdominal pain nausea vomiting with blood flecks which he states is similar to the last presentation. In the emergency room CT scan was suggestive of a recurrent GI bleed; seen by GI. . . EGD in the a.m. 1. Abdominal pain in backdrop of acute GI bleeding requiring coiling -seen by GI; clear liquids today NPO after midnight for EGD in a.m. -hold Eliquis; last dose a.m. 05/04 -morphine/oxycodone for pain as needed 2. Acute kidney injury (likely secondary to volume depletion) -volume repletion with lactated Ringer's -follow renals/divalent 3. Paroxysmal atrial fibrillation -acceptable rate control at present -hold Eliquis; resume when appropriate as deemed by GI -continue all other outpatient therapies 4. HFpEF -stable and well compensated -continue current therapies Full code Pneumatics Patient will require at least 2 midnights going forward of inpatient stay for workup of presumed GI bleed including specialty consultation. This not be achieved a lesser acute setting Quality Stroke Does the patient have a stroke diagnosis?: No VTE Prior VTE?: No VTE Risk Level:: Medical - moderate - high VTE Device Contraindication: N/A - Device Ordered VTE Drug Contraindication: Treatment Not Indicated
--- NOTE | 2024-05-05 14:13 | PHA.MEDREC ---
Addendum entered by Justina Leroy RPh 05/05/24 14:17: MED REC REVIEWED BY ZIYAD. OF NOTE, LISINOPRIL WAS DISCONTINUED WHEN PATIENT WAS DISCHARGED ON 04/27/24. Original Note: Pharmacy Consult ? Medication Reconciliation Pharmacy has completed the medication reconciliation. Pt recently discharged on 04/27/24. Utilized discharge packet to confirm.
[2024-05-05] MEDS: Amiodarone HCL 200 MG TABLET PO (14:33)
--- NOTE | 2024-05-05 14:38 | PC.NURSE ---
Metoprolol held d/t pt HR 50s-60. MD Russell aware.
[2024-05-05] MEDS: 0.9 % Sodium Chloride Flush 3 ML SYRINGE IVFLUSH (16:32)
[2024-05-05 16:54] LABS: MANUAL DIFF FLAG NO
[2024-05-05 16:57] LABS: Basophils Percent Auto 0.4 % (0-2); Eosinophils Percent Auto 0.2 % (0-4); Hematocrit 35.8 % (42.0-52.0); Imm Gran Abs Auto 0.02 X10*3/uL (0.00-0.03); Imm Gran Pct Auto 0.2 % (0.0-0.4); Lymphocytes Absolute Auto 1.4 X10*3/uL (1.2-4.9); Mean Corpuscular HGB Conc 30.7 g/dl (31.0-36.0); Mean Corpuscular Hemoglobin 23.9 pg (27.0-33.0); Mean Corpuscular Volume 77.8 fL (80.0-98.0); Mean Platelet Volume 9.9 fL (9.4-12.4); Monocytes Absolute Auto 0.9 X10*3/uL (0.1-1.2); Monocytes Percent Auto 8.7 % (2-11); Neutrophils Absolute Auto 8.1 x10*3/uL (2.0-8.3); Neutrophils Percent Auto 77.5 % (45-73); Platelet Count 291 X10*3/uL (160-400); Red Cell Distribution Width 17.2 % (11.0-16.0); White Blood Count 10.5 X10*3/uL (4.8-10.8)
[2024-05-05 17:48] LABS: Alanine Aminotransferase 13 U/L (0-40); Albumin Level 3.7 g/dL (3.5-5.0); Alkaline Phosphatase 118 U/L (39-117); Anion Gap 14 (12-20); Aspartate Amino Transferase 18 U/L (5-37); Bilirubin Total 1.1 mg/dL (0.0-1.0); Blood Urea Nitrogen 28 mg/dL (9-16); Calcium 9.7 mg/dL (8.4-10.2); Carbon Dioxide 24 mmol/L (22-29); Chloride 105 mmol/L (96-108); Creatinine Clr Calc Pharmacy 72.7; Estimated Glomerular Filt Rate 46; Glucose Fasting 99 mg/dL (60-99); Potassium 4.8 mmol/L (3.3-5.1); Sodium 138 mmol/L (135-145); Total Protein 7.1 g/dL (6.5-8.0)
[2024-05-05] MEDS: Valsartan 160 MG TABLET PO (20:02)
--- NOTE | 2024-05-05 20:03 | PC.NURSE ---
Pt administered morphine 30 min early d/t the level of his pain.
[2024-05-06] VITALS (7 sets, daily range): BP systolic 105–167; BP diastolic 65–90; PULSE 62–71; RESP 16–18; TEMP 36.1–36.6; O2SAT 94–98
[2024-05-06] MEDS: Morphine Sulfate 4 MG/ML CARTRIDGE IVPUSH ×3 (05:00→19:25)
[2024-05-06] MEDS: ondansetron HCL 4 MG/2 ML VIAL IVPUSH (05:00)
[2024-05-06] MEDS: Furosemide 40 MG TABLET PO (08:20)
[2024-05-06] MEDS: Spironolactone 25 MG TABLET PO (08:21)
[2024-05-06] MEDS: amLODIPine Besylate 5 MG TABLET PO (08:21)
[2024-05-06] MEDS: Empagliflozin 10 MG TABLET PO (08:21)
[2024-05-06] MEDS: Metoprolol Succinate ER 100 MG TAB.ER.24H PO (08:21)
[2024-05-06] MEDS: Amiodarone HCL 200 MG TABLET PO (08:21)
[2024-05-06] MEDS: 0.9 % Sodium Chloride Flush 3 ML SYRINGE IVFLUSH ×2 (08:26→15:29)
[2024-05-06] MEDS: Valsartan 160 MG TABLET PO ×2 (08:28→20:35)
--- NOTE | 2024-05-06 09:17 | CONS_ITS ---
DATE OF SERVICE: 05/05/2024 HISTORY OF PRESENT ILLNESS: The patient is a pleasant 58-year-old man presenting to the emergency room with abdominal pain. He went to the emergency department this morning and developing abdominal pain last night a couple of hours after eating supper. The pain persisted and was associated with nausea and vomiting. He describes vomiting a small amount of bright red blood after initial nonbloody emesis, approximately 1 teaspoon or less. He denies any melena. The abdominal pain was generalized and he has had this in the past. He was hospitalized and underwent gastroduodenal artery embolization for periduodenal hematoma earlier in the year. This was done in [place]. He last underwent upper endoscopy for similar presentation with Dr. Rahman in February, which showed no active GI bleeding. The procedure report and medical record are reviewed in detail. In the emergency department, he was evaluated. Vital signs were stable and CT scanning was obtained, which was reviewed. This is discussed with the interpreting radiologist. This does not appear to show any major bleeding, but does show some changes consistent with his previous periduodenal hematoma including nonspecific fat stranding. Digital rectal examination in the emergency department was negative for occult blood. Laboratory studies showed a stable hematocrit. PAST MEDICAL HISTORY: 1. Atrial fibrillation, on Eliquis, last dose 05/04 a.m. 2. FARHEEN/CPAP. 3. Alcohol abuse. Current alcohol intake, 4 drinks twice to 3 times weekly per patient. 4. Periduodenal hematoma with embolization of gastroduodenal artery. 5. Congestive heart failure. 6. Elevated body mass index. 7. Hypertension. 8. Ankle fracture ORIF. 9. Hip replacement. CURRENT MEDICATIONS: Current medication list is reviewed in the chart. He is on omeprazole and has been compliant with this. ALLERGIES: THERE ARE NONE REPORTED. FAMILY HISTORY: This is reviewed with the patient and is noncontributory. SOCIAL HISTORY: There is no current tobacco use. He does occasionally use marijuana. Alcohol use is as above. REVIEW OF SYSTEMS: SKIN: No pruritus. HEENT: Negative. CARDIOPULMONARY: No shortness of breath or chest pain. GASTROINTESTINAL: As above. GENITOURINARY: Negative. NEUROPSYCHIATRIC: Negative. PHYSICAL EXAMINATION: GENERAL: Shows a pleasant male, in no acute distress. VITAL SIGNS: Reviewed in electronic medical record and are stable. SKIN: Anicteric. HEENT: Shows no scleral icterus. NECK: Without lymphadenopathy or thyromegaly. LUNGS: Clear. HEART: Shows regular rate and rhythm. S1, S2. No murmur. ABDOMEN: Soft without focal masses. There is some mild diffuse tenderness to palpation. There is no guarding or rebound. EXTREMITIES: Without edema. DIAGNOSTIC DATA: Laboratory data and CT scanning are reviewed in detail. IMPRESSION: 1. Abdominal pain. 2. Nausea and vomiting. 3. Hematemesis. PLAN: At this time, he appears quite stable. His hematemesis has been minimal and could be possibly related to a Renita-Hernandez tear from his vomiting. He does not show signs of active GI bleeding and I reviewed his CT scan in detail as above. It appears the changes that are present are consistent with his previous history of periduodenal hematoma. I recommend he will be admitted to the hospital and have supportive care with antiemetics, IV fluids, and pain medications. He should undergo upper endoscopy because of his history and his symptoms. We discussed risks and benefits of the procedure today. He understands these and agrees to proceed. This will be arranged for 05/06 and can be done sooner if he shows signs of acute decompensation, which he does not at this time. Continue proton pump inhibitor and monitor H and H. Thanks for asking me to see him. I will follow him in the hospital with you. MD ADALBERTO Neil/BETTY / [id number]
--- NOTE | 2024-05-06 09:23 | MHC.CM.PN ---
IMM DELIVERED PT LIVES WITH S/O AND CHILD. PT IS INDEPENDENT AT BASELINE. USES C PAP AT [facility] AND HAS AN ICD IN PLACE. +HC P ON FILES AND VERIFIED PCP PRIYA SANCHEZ [employer] DP: HOME, NO SERVICES IS THE GOAL. FAMILY WILL TRANSPORT. CMWILL CONTINUE TO FOLLOW FOR ANY CHANGE TO DC PLAN/NEEDS.
[2024-05-06] MEDS: Lactated Ringers 1,000 ML 100 ML IVCONT ×2 (12:10→19:04)
--- NOTE | 2024-05-06 12:12 | HO.PM.IMPN ---
Subjective Subjective Date of Service: 05/06/24 Interval History: No acute issues overnight; no active bleeding/vomiting Review of Systems Denies chest pain Denies shortness of breath Admits nausea vomiting; denies diarrhea Denies fever chills Physical Exam Vital Signs: Vital Signs: Last Vital Signs Temp 97.9 F 05/06/24 12:04 Pulse 70 05/06/24 12:04 Resp 16 05/06/24 12:04 BP 136/90 H 05/06/24 12:04 Pulse Ox 95 05/06/24 12:04 O2 Del Method Room Air 05/06/24 12:04 BMI result Body Mass Index 32.5 Const: Other: Awake alert oriented x3 no acute distress Resp: Other: Clear to auscultation bilaterally no rales rhonchi or wheezes Cardio: Other: No S4; positive S1-S2; no S3 murmurs rubs or gallops GI: Other: Soft diffusely tender without rebound. Quiet bowel sounds Neuro: Other: Cranial nerves 2 through 12 grossly intact as tested. Sensation intact motor 5/5 all extremities cognition appropriate Extrem: Other: No edema bilaterally Objective Data Active Medications Acetaminophen (Acetaminophen 325 Mg Tablet) 650 mg PO Q6H PRN PRN Reason: Pain, Mild (Pain Scale 1-3), fever or headache Amiodarone HCl (Amiodarone Hcl 200 Mg Tablet) 200 mg PO DAILY [facility] Last Admin: 05/06/24 08:21 Dose: 200 mg Documented By: BENSON Amlodipine Besylate (Amlodipine Besylate 5 Mg Tablet) 5 mg PO DAILY [facility]; Protocol Last Admin: 05/06/24 08:21 Dose: 5 mg Documented By: BENSON Calcium Carbonate (Calcium Carbonate 750 Mg Tab.Chew) 750 mg PO Q4H PRN PRN Reason: Heartburn Empagliflozin (Empagliflozin 10 Mg Tablet) 10 mg PO DAILY [facility] Last Admin: 05/06/24 08:21 Dose: 10 mg Documented By: BENSON Furosemide (Furosemide 40 Mg Tablet) 40 mg PO DAILY [facility]; Protocol Last Admin: 05/06/24 08:20 Dose: 40 mg Documented By: BENSON Lactated Ringer's (Lr) 1,000 mls @ 100 mls/hr IVCONT .Q10H [facility] Last Admin: 05/06/24 12:10 Dose: 100 mls/hr Documented By: MELI Magnesium Hydroxide (Milk Of Magnesia 30 Ml Oral.Susp) 30 ml PO DAILY PRN PRN Reason: Constipation Melatonin (Melatonin 3 Mg Tablet) 6 mg PO BEDTIME PRN PRN Reason: Insomnia Metoprolol Succinate (Metoprolol Succinate Er 100 Mg Tab.Er.24h) 100 mg PO DAILY [facility]; Protocol Last Admin: 05/06/24 08:21 Dose: 100 mg Documented By: BENSON Morphine Sulfate (Morphine Sulfate 4 Mg/Ml Cartridge) 4 mg IVPUSH Q4H PRN; Protocol PRN Reason: Pain, Severe (Pain Scale 7-10) Last Admin: 05/06/24 11:38 Dose: 4 mg Documented By: BENSON Omeprazole (Omeprazole 20 Mg Capsule.Dr) 20 mg PO DAILY@0630 [facility] Last Admin: 05/06/24 03:16 Dose: Not Given Documented By: RONEY Non-Admin Reason: NPO Ondansetron HCl (Ondansetron Hcl 4 Mg/2 Ml Vial) 4 mg IVPUSH Q6H PRN PRN Reason: Nausea and Vomiting Last Admin: 05/06/24 05:00 Dose: 4 mg Documented By: RONEY Sodium Chloride (0.9 % Sodium Chloride Flush 3 Ml Syringe) 3 ml IVFLUSH [facility] Last Admin: 05/06/24 08:26 Dose: 3 ml Documented By: BENSON Spironolactone (Spironolactone 25 Mg Tablet) 25 mg PO DAILY [facility]; Protocol Last Admin: 05/06/24 08:21 Dose: 25 mg Documented By: BENSON Valsartan (Valsartan 160 Mg Tablet) 160 mg PO BID [facility]; Protocol Last Admin: 05/06/24 08:28 Dose: 160 mg Documented By: BENSON Labs 05/05/24 17:00 05/05/24 17:00 Labs: Laboratory Results - last 24 hr 05/05/24 05/05/24 05/05/24 08:41 12:28 16:44 MCV MCH MCHC RDW Plt Count MPV Immature Gran % (Auto) Neut % (Auto) Lymph % (Auto) [place] % (Auto) Eos % (Auto) Baso % (Auto) Lymph # (Auto) [place] # (Auto) Eos # (Auto) Baso # (Auto) Abs Immat Gran (auto) Absolute Neuts (auto) Absolute Nucleated RBC Nucleated RBC % (auto) Hold Purple Top Cancelled Anion Gap Estim Creat Clear Calc Estimated GFR Fasting Glucose Calcium Total Bilirubin AST ALT Alkaline Phosphatase Total Protein Albumin Ethyl Alcohol < 10 Blood Type O Positive Antibody Screen NEGATIVE 05/05/24 17:00 MCV 77.8 L MCH 23.9 L MCHC 30.7 L RDW 17.2 H Plt Count 291 MPV 9.9 Immature Gran % (Auto) 0.2 Neut % (Auto) 77.5 H Lymph % (Auto) 13.0 L [place] % (Auto) 8.7 Eos % (Auto) 0.2 Baso % (Auto) 0.4 Lymph # (Auto) 1.4 [place] # (Auto) 0.9 Eos # (Auto) 0.0 Baso # (Auto) 0.0 Abs Immat Gran (auto) 0.02 Absolute Neuts (auto) 8.1 Absolute Nucleated RBC 0.000 Nucleated RBC % (auto) 0.0 Hold Purple Top Anion Gap 14 Estim Creat Clear Calc 72.7 Estimated GFR 46 Fasting Glucose 99 Calcium 9.7 Total Bilirubin 1.1 H AST 18 ALT 13 Alkaline Phosphatase 118 H Total Protein 7.1 Albumin 3.7 Ethyl Alcohol Blood Type Antibody Screen Assessment and Plan (1) Chronic GI hemorrhage: Status: Acute (2) SAUL (acute kidney injury): Status: Acute Plan 58-year-old male with a history of GI bleeding status post coil at [facility] within the last month presents with diffuse abdominal pain nausea vomiting with blood flecks which he states is similar to the last presentation. In the emergency room CT scan was suggestive of a recurrent GI bleed; seen by GI. Remained hemodynamically stable overnight without bleeding 1. Abdominal pain in backdrop of acute GI bleeding requiring coiling -EGD pending -hold Eliquis; last dose a.m. 05/04 -morphine/oxycodone for pain as needed 2. Acute kidney injury (likely secondary to volume depletion) -responded to volume repletion -follow renals/divalent 3. Paroxysmal atrial fibrillation -acceptable rate control at present -hold Eliquis; resume when appropriate as deemed by GI -continue all other outpatient therapies 4. HFpEF -stable and well compensated -continue current therapies Full code Pneumatics Patient will require at least 2 midnights going forward of inpatient stay for workup of presumed GI bleed including specialty consultation. This not be achieved a lesser acute setting Quality Stroke Does the patient have a stroke diagnosis?: No VTE Prior VTE?: No VTE Risk Level:: Medical - moderate - high VTE Device Contraindication: N/A - Device Ordered VTE Drug Contraindication: Treatment Not Indicated
--- NOTE | 2024-05-06 12:25 | P.CONAN_ITS ---
[facility] Active Problems Active Problems: All Active Problems Chronic GI hemorrhage (Acute) SAUL (acute kidney injury) (Acute) Abdominal pain (Acute) Uncontrolled hypertension (Acute) Acute heart failure with preserved ejection fraction (HFpEF) (Acute) Osteoarthritis of left ankle (Acute) Distal radius fracture, right (Acute) Distal radius fracture, left (Acute) Colon polyps (Acute) ICD (implantable cardioverter-defibrillator) in place (Acute) Ventricular tachycardia (Acute) NICM (nonischemic cardiomyopathy) (Acute) PAF (paroxysmal atrial fibrillation) (Acute) Thrombus of left atrial appendage (Acute) Alcoholic fatty liver (Acute) FARHEEN on CPAP (Acute) Alcohol abuse (Acute) HTN (hypertension) (Acute) (HFpEF) heart failure with preserved ejection fraction (Acute) Past Medical History Medical History Anemia Acute exacerbation of CHF (congestive heart failure) Morbid obesity Gastrointestinal bleeding History of cardioversion FARHEEN on CPAP Alcohol abuse HTN (hypertension) (HFpEF) heart failure with preserved ejection fraction Family History Family History Mother HTN (hypertension) Diabetes mellitus Father Diabetes mellitus HTN (hypertension) Maternal Uncle Colon cancer Family history of problems with anesthesia: No Surgical History Surgical History History of cardiac radiofrequency ablation History of esophagogastroduodenoscopy (EGD) Hx of colonoscopy Status post ORIF of fracture of ankle S/P hip replacement History of Problems with Anesthesia: No Social History Social History Household Members: Significant Other and Children Household Members Other:: Girlfriend and daughter Housing: Apartment Are you a primary child care team lead to a significant other at home: No Do you presently have visiting nurse or other home services: No Alcohol intake: former Patient Tobacco Use Status: Never used Tobacco e-Cigarette/Vaping Use: Never Used Second Hand Smoke Exposure: No Substance Use Type: Marijuana Advance Directives Date on File: 01/25/21 service: No Current occupational status: retired Current occupation: rt handed Cognitive needs: No Hearing needs: No Vision needs: No Meds Allergies Allergy/AdvReac Type Severity Reaction Status Date / Time No Known Allergies Allergy Verified 05/05/24 08:23 Active Medications: Current Medications Acetaminophen (Acetaminophen 325 Mg Tablet) 650 mg PO Q6H PRN PRN Reason: Pain, Mild (Pain Scale 1-3), fever or headache Amiodarone HCl (Amiodarone Hcl 200 Mg Tablet) 200 mg PO DAILY [facility] Last Admin: 05/06/24 08:21 Dose: 200 mg Amlodipine Besylate (Amlodipine Besylate 5 Mg Tablet) 5 mg PO DAILY [facility]; Protocol Last Admin: 05/06/24 08:21 Dose: 5 mg Calcium Carbonate (Calcium Carbonate 750 Mg Tab.Chew) 750 mg PO Q4H PRN PRN Reason: Heartburn Empagliflozin (Empagliflozin 10 Mg Tablet) 10 mg PO DAILY [facility] Last Admin: 05/06/24 08:21 Dose: 10 mg Furosemide (Furosemide 40 Mg Tablet) 40 mg PO DAILY [facility]; Protocol Last Admin: 05/06/24 08:20 Dose: 40 mg Lactated Ringer's (Lr) 1,000 mls @ 100 mls/hr IVCONT .Q10H [facility] Last Admin: 05/06/24 12:10 Dose: 100 mls/hr Magnesium Hydroxide (Milk Of Magnesia 30 Ml Oral.Susp) 30 ml PO DAILY PRN PRN Reason: Constipation Melatonin (Melatonin 3 Mg Tablet) 6 mg PO BEDTIME PRN PRN Reason: Insomnia Metoprolol Succinate (Metoprolol Succinate Er 100 Mg Tab.Er.24h) 100 mg PO DAILY [facility]; Protocol Last Admin: 05/06/24 08:21 Dose: 100 mg Morphine Sulfate (Morphine Sulfate 4 Mg/Ml Cartridge) 4 mg IVPUSH Q4H PRN; Protocol PRN Reason: Pain, Severe (Pain Scale 7-10) Last Admin: 05/06/24 11:38 Dose: 4 mg Omeprazole (Omeprazole 20 Mg Capsule.Dr) 20 mg PO DAILY@0630 [facility] Last Admin: 05/06/24 03:16 Dose: Not Given Ondansetron HCl (Ondansetron Hcl 4 Mg/2 Ml Vial) 4 mg IVPUSH Q6H PRN PRN Reason: Nausea and Vomiting Last Admin: 05/06/24 05:00 Dose: 4 mg Sodium Chloride (0.9 % Sodium Chloride Flush 3 Ml Syringe) 3 ml IVFLUSH QSHIFT [facility] Last Admin: 05/06/24 08:26 Dose: 3 ml Spironolactone (Spironolactone 25 Mg Tablet) 25 mg PO DAILY [facility]; Protocol Last Admin: 05/06/24 08:21 Dose: 25 mg Valsartan (Valsartan 160 Mg Tablet) 160 mg PO BID [facility]; Protocol Last Admin: 05/06/24 08:28 Dose: 160 mg Home Medications ?Medication ?Instructions ?Recorded ?Confirmed ?Last Taken ?Type diphenhydramine 25 2 tab PO BEDTIME PRN Pain/Sleep 04/26/24 05/05/24 04/25/24 History mg-acetaminophen 500 mg tablet (Tylenol PM Extra Strength) omeprazole 20 mg capsule,delayed 20 mg PO DAILY@0630 05/05/24 05/05/24 Unknown History release Exam Height,Weight and Vital Signs: Height 6 ft 3 in Weight 117.9 kg Last Vital Signs Temp 97.9 F 05/06/24 12:04 Pulse 70 05/06/24 12:04 Resp 16 05/06/24 12:04 BP 136/90 H 05/06/24 12:04 Pulse Ox 95 05/06/24 12:04 O2 Del Method Room Air 05/06/24 12:04 Pertinent Lab Results Pertinent Lab Results: Laboratory Tests 05/05/24 05/05/24 05/05/24 08:41 09:35 11:49 WBC 11.1 H RBC 4.76 Hgb 11.4 L Hct 37.3 L MCV 78.4 L MCH 23.9 L MCHC 30.6 L RDW 17.3 H Plt Count 343 D MPV 10.6 Immature Gran % (Auto) 0.4 Neut % (Auto) 76.6 H Lymph % (Auto) 14.6 L [place] % (Auto) 7.6 Eos % (Auto) 0.3 Baso % (Auto) 0.5 Lymph # (Auto) 1.6 [place] # (Auto) 0.8 Eos # (Auto) 0.0 Baso # (Auto) 0.1 Abs Immat Gran (auto) 0.04 H Absolute Neuts (auto) 8.5 H Absolute Nucleated RBC 0.000 Nucleated RBC % (auto) 0.0 Hold Purple Top Sodium 139 Potassium 5.0 D Chloride 104 Carbon Dioxide 26 Anion Gap 14 BUN 34 H Creatinine 2.19 H Estim Creat Clear Calc 52.1 Estimated GFR 31 Random Glucose 120 H Fasting Glucose Calcium 9.6 Total Bilirubin 0.8 AST 19 ALT 13 Alkaline Phosphatase 138 H Total Protein 7.6 Albumin 4.1 Lipase 299 H Urine Color Yellow Urine Appearance Clear Urine pH 7.0 Ur Specific [place] 1.020 Urine Protein 30 (1+) H Urine Glucose (UA) >=1000 H Urine Ketones Negative Urine Blood Negative Urine Nitrite Negative Ur Leukocyte Esterase Negative Urine RBC 0-2 Urine WBC 0-5 Ur Squamous Epith Cells 0-2 Urine Bacteria None Seen Hyaline Casts 0-2 Stool Occult Blood NEGATIVE Ethyl Alcohol < 10 Blood Type Antibody Screen 05/05/24 05/05/24 05/05/24 12:28 16:44 17:00 WBC 10.5 RBC 4.60 Hgb 11.0 L Hct 35.8 L MCV 77.8 L MCH 23.9 L MCHC 30.7 L RDW 17.2 H Plt Count 291 MPV 9.9 Immature Gran % (Auto) 0.2 Neut % (Auto) 77.5 H Lymph % (Auto) 13.0 L [place] % (Auto) 8.7 Eos % (Auto) 0.2 Baso % (Auto) 0.4 Lymph # (Auto) 1.4 [place] # (Auto) 0.9 Eos # (Auto) 0.0 Baso # (Auto) 0.0 Abs Immat Gran (auto) 0.02 Absolute Neuts (auto) 8.1 Absolute Nucleated RBC 0.000 Nucleated RBC % (auto) 0.0 Hold Purple Top Cancelled Sodium 138 Potassium 4.8 Chloride 105 Carbon Dioxide 24 Anion Gap 14 BUN 28 H Creatinine 1.57 H Estim Creat Clear Calc 72.7 Estimated GFR 46 Random Glucose Fasting Glucose 99 Calcium 9.7 Total Bilirubin 1.1 H AST 18 ALT 13 Alkaline Phosphatase 118 H Total Protein 7.1 Albumin 3.7 Lipase Urine Color Urine Appearance Urine pH Ur Specific [place] Urine Protein Urine Glucose (UA) Urine Ketones Urine Blood Urine Nitrite Ur Leukocyte Esterase Urine RBC Urine WBC Ur Squamous Epith Cells Urine Bacteria Hyaline Casts Stool Occult Blood Ethyl Alcohol Blood Type O Positive Antibody Screen NEGATIVE Airway Mallampati Class: II TM Dist: >3cm Neck ROM: Full Heart: rrr Lungs: cta Assessment and Plan Assessment Anesthesia Assessment: Anesthesia Plan Discussed and Chart Reviewed Final Anesthetic Review Family History of Problems with Anesthesia: No History of Problems with Anesthesia: No NPO: Yes ASA Class: III Final Preanesthetic Review: No Changes in Pt Med Stat, Meds/Allgs Chart Reviewed and Consent Obtained/Reviewed Patient Risk: Low Procedure Risk: Intermediate Anesthetic Plan Anesthetic Plan: MAC: Disposition: Standard PACU
--- NOTE | 2024-05-06 13:52 | W.PM.OPN ---
Operative Note Operative Note Date of Service: 05/06/24 Narrative: FLEXIBLE TRANSORAL UPPER GASTROINTESTINAL ENDOSCOPY WITH BIOPSIES Pre-op diagnosis: UGI bleeding, abdominal pain Post-op diagnosis: Gastritis, prominent folds duodenal bulb Endoscopist:? Lilly Le MD Anesthesia:?MAC UPPER ENDOSCOPY Consent: Indications for the procedure and potential complications of bleeding, perforation, reaction to medications and missed diagnosis were discussed with the patient and informed consent was obtained. Instrument: Olympus GIF H 190 mid size upper endoscope Monitoring: Vital signs and clinical assessment, continuous EKG monitoring, Pulse oximetry, Carbon Dioxide monitoring and blood pressure monitoring were done throughout the procedure. Procedure: The patient was placed in the left lateral decubitis position and pre-procedure medications were administered and a bite block was placed. The endoscope was inserted into the mouth and advanced under direct vision to the third part of duodenum. A careful inspection was made as the upper endoscope was withdrawn including a retroflexed examination of the proximal stomach; Findings and interventions are described below. Findings: Larynx: Normal Esophagus: GE junction at 42 cms. Focal 1 cms non-bleeding ulcer at GE junction Stomach: Mild gastric erythema - biopsies were obtained from the antrum to check for H Pylori. Grade 2 flap valve on retroflexed examination of the cardia. Duodenum: Prominent benign appearing folds occupying the lumen in the apex of the bulb - biopsies were obtained. A mid size upper endoscope was passed into the 2nd part of duodenum without resistance.. Normal descending duodenum Intervention: Biopsies as noted above Impression and Post Procedure Diagnosis: Endoscopy Findings: ESOPHAGUS: Focal 1 cms non-bleeding ulcer at GE junction - likely healing Renita-Hernandez tear STOMACH: Mild gastritis DUODENUM: Prominent benign appearing folds occupying the lumen in the apex of the bulb (likely residual changes from past duodenal ulcer and alisha-duodenal hematoma in September, - biopsies were obtained. A mid size upper endoscope was passed into the 2nd part of duodenum without resistance.. No blood seen in the upper GI tract during EGD. Plan: UGI bleeding likely from a MW tear - healing. Continue Omeprazole 20 mg daily. Start a clear liquid diet and advance diet as tolerated. If pt has recurrent abdominal pain, obtain Abd CT scan with PO contrast (unable to get IV contrast due to elevated Cr) Pt is scheduled to have a colonoscopy with Dr Rahman on 07/23/23. Above findings were reviewed with the patient and relevant handouts were given and the discharge area.
--- NOTE | 2024-05-06 15:39 | CONS_ITS ---
DATE OF SERVICE: 05/05/2024 REFERRING PHYSICIAN: NICHOLAS Espinoza REASON FOR CONSULTATION: Hematemesis and abdominal pain. HISTORY OF PRESENT ILLNESS: The patient is a pleasant 58-year-old man, who was admitted to the hospital after presenting to the emergency room with abdominal pain, nausea and vomiting. Symptoms began last night when he developed abdominal pain couple of hours after eating supper. The pain is generalized across the abdomen and intermittent. There was associated nausea and he vomited approximately 3 to 4 times at home. There was no massive hematemesis, but he did say there was a small amount of bright red blood, perhaps a teaspoon with 1 episode of vomiting after he had his initial episode of vomiting. Rectal examination in the emergency room showed brown occult negative stool. He denies any melena. He does have a history of a previous periduodenal hematoma which was treated with embolization of the gastroduodenal artery earlier this year in [place]. His last endoscopy in February of this year showed a normal duodenum and 2nd portion and no evidence of active peptic ulcer disease. He does remained compliant with omeprazole and denies use of NSAIDs. He is on Eliquis for atrial fibrillation, but has not taken a dose of this since yesterday morning. Evaluation in the emergency department showed stable vital signs. Hematocrit was 37.3, up from 32 in April 8 days ago. Renal function showed slight worsening with a BUN of 34 and creatinine of 2.19. Imaging studies are reviewed. CT scanning is interpreted as showing epigastric/right upper quadrant mesenteric stranding. These findings were reviewed with the radiologist, who interpreted the films and appear consistent with his previous history of periduodenal hematoma. PAST MEDICAL HISTORY: 1. Atrial fibrillation. 2. ICD pacemaker for ventricular tachycardia. 3. Heart failure with preserved ejection fraction. 4. FARHEEN/CPAP. 5. Hypertension. 6. Periduodenal hematoma with embolization as above. 7. Alcohol abuse in the past. 8. EGD as above. CURRENT MEDICATIONS: His current medication list is reviewed in the chart. ALLERGIES: THERE ARE NONE REPORTED. FAMILY HISTORY: This is reviewed with the patient and is noncontributory. SOCIAL HISTORY: There is no current tobacco use. He does occasionally use marijuana. He reports drinking 3 to 4 beers the day before admission and doing this approximately 1 to 2 times per week. REVIEW OF SYSTEMS: SKIN: No pruritus. HEENT: Negative. CARDIOPULMONARY: No shortness of breath or chest pain. GASTROINTESTINAL: As above. GENITOURINARY: Negative. NEUROPSYCHIATRIC: Negative. PHYSICAL EXAMINATION: GENERAL: Shows a pleasant male, lying in bed, complaining of abdominal pain. VITAL SIGNS: Stable. SKIN: Anicteric. HEENT: No scleral icterus. NECK: Without lymphadenopathy or thyromegaly. LUNGS: Clear. HEART: Regular rate and rhythm. S1, S2. No murmur. ABDOMEN: Soft without focal masses or tenderness. Bowel sounds are present. No organomegaly is noted. There is some mild diffuse tenderness to palpation across the abdomen, but no focal guarding or rebound. LABORATORY DATA: Reviewed as are imaging studies. IMPRESSION: 1. Abdominal pain with nausea and vomiting. 2. Hematemesis. At this time, he does not show any signs of active GI bleeding. The hematemesis that he describes may be related to a Renita-Hernandez tear from his vomiting. The CT findings appear consistent with his prior history of alisha duodenal hematoma and embolization of the gastroduodenal artery. He does not appear to have active GI bleeding based on the CT scan. I would recommend upper endoscopy for further evaluation. This will be arranged for tomorrow. I have discussed risks and benefits of the procedure with him. He understands these and agrees to proceed. Thanks for asking me to see him. I will follow him in the hospital with you. MD ADALBERTO Neil/BETTY / [phone]
[2024-05-07 03:23] VITALS: BP 140/76; PULSE 66; RESP 18; TEMP 36.9; O2SAT 94
[2024-05-07] MEDS: Morphine Sulfate 4 MG/ML CARTRIDGE IVPUSH ×3 (03:30→15:54)
[2024-05-07] MEDS: Lactated Ringers 1,000 ML 100 ML IVCONT ×2 (03:33→15:56)
[2024-05-07] MEDS: Omeprazole 20 MG CAPSULE.DR PO (05:53)
[2024-05-07 06:37] LABS: MANUAL DIFF FLAG NO
[2024-05-07 06:43] LABS: Basophils Absolute Auto 0.1 X10*3/uL (0.0-0.2); Basophils Percent Auto 0.6 % (0-2); Eosinophils Absolute Auto 0.1 X10*3/uL (0.0-0.4); Eosinophils Percent Auto 1.2 % (0-4); Hematocrit 33.8 % (42.0-52.0); Hemoglobin 10.5 g/dl (14.0-18.0); Imm Gran Abs Auto 0.05 X10*3/uL (0.00-0.03); Imm Gran Pct Auto 0.5 % (0.0-0.4); Lymphocytes Absolute Auto 1.7 X10*3/uL (1.2-4.9); Lymphocytes Percent Auto 15.4 % (20-40); Mean Corpuscular HGB Conc 31.1 g/dl (31.0-36.0); Mean Corpuscular Hemoglobin 24.3 pg (27.0-33.0); Mean Corpuscular Volume 78.2 fL (80.0-98.0); Mean Platelet Volume 10.5 fL (9.4-12.4); Monocytes Absolute Auto 1.1 X10*3/uL (0.1-1.2); Monocytes Percent Auto 10.5 % (2-11); Neutrophils Absolute Auto 7.7 x10*3/uL (2.0-8.3); Neutrophils Percent Auto 71.8 % (45-73); Platelet Count 242 X10*3/uL (160-400); Red Blood Count 4.32 X10*6/uL (4.60-5.80); Red Cell Distribution Width 17.2 % (11.0-16.0); White Blood Count 10.7 X10*3/uL (4.8-10.8)
[2024-05-07 06:53] LABS: Alanine Aminotransferase 10 U/L (0-40); Albumin Level 3.4 g/dL (3.5-5.0); Alkaline Phosphatase 94 U/L (39-117); Anion Gap 13 (12-20); Aspartate Amino Transferase 24 U/L (5-37); Blood Urea Nitrogen 20 mg/dL (9-16); Calcium 9.5 mg/dL (8.4-10.2); Carbon Dioxide 25 mmol/L (22-29); Chloride 100 mmol/L (96-108); Creatinine Clr Calc Pharmacy 96.7; Estimated Glomerular Filt Rate > 60; Glucose Fasting 101 mg/dL (60-99); Potassium 4.2 mmol/L (3.3-5.1); Sodium 134 mmol/L (135-145); Total Protein 6.6 g/dL (6.5-8.0)
[2024-05-07 07:21] VITALS: BP 139/84; PULSE 64; RESP 18; TEMP 36.8; O2SAT 93
[2024-05-07] MEDS: Valsartan 160 MG TABLET PO ×2 (07:57→20:08)
[2024-05-07] MEDS: Empagliflozin 10 MG TABLET PO (07:57)
[2024-05-07] MEDS: Spironolactone 25 MG TABLET PO (07:57)
[2024-05-07] MEDS: amLODIPine Besylate 5 MG TABLET PO (07:57)
[2024-05-07] MEDS: Metoprolol Succinate ER 100 MG TAB.ER.24H PO (07:57)
[2024-05-07] MEDS: Amiodarone HCL 200 MG TABLET PO (07:57)
[2024-05-07] MEDS: Furosemide 40 MG TABLET PO (07:58)
--- NOTE | 2024-05-07 08:49 | HO.POSTANES ---
Post Anesthesia Evaluation Post Anesthesia Evaluation Date of Service: 05/07/24 Vital Signs: Vital Signs Temp Pulse Resp BP Pulse Ox O2 Del Method 05/07/24 07:21 98.3 F 64 18 139/84 93 Room Air 05/07/24 03:23 98.5 F 66 18 140/76 H 94 Room Air Anesthesia: Monitored Mental Status: Awake Pain Control: Satisfactory Nausea/Vomiting: None Hydration: Adequate Anesthesia-Related Issues: No Anes. Related Issues
--- NOTE | 2024-05-07 12:23 | P.PNIM_ITS ---
Subjective Subjective Date of Service: 05/07/24 Interval History: No acute issues overnight. Still with vague abdominal pain not tolerating diet. No sylvia hematemesis noted Review of Systems Denies chest pain Denies shortness of breath Admits nausea vomiting; denies diarrhea Denies fever chills Physical Exam 2 Vital Signs: Vital Signs: Last Vital Signs Temp 98.3 F 05/07/24 07:21 Pulse 64 05/07/24 07:21 Resp 18 05/07/24 07:21 BP 139/84 05/07/24 07:21 Pulse Ox 93 05/07/24 07:21 O2 Del Method Room Air 05/07/24 07:21 BMI result Body Mass Index 32.5 Const: Other: Awake alert oriented x3 no acute distress Resp: Other: Clear to auscultation bilaterally no rales rhonchi or wheezes Cardio: Other: No S4; positive S1-S2; no S3 murmurs rubs or gallops GI: Other: Soft diffusely tender without rebound. Quiet bowel sounds Neuro: Other: Cranial nerves 2 through 12 grossly intact as tested. Sensation intact motor 5/5 all extremities cognition appropriate Extrem: Other: No edema bilaterally Objective Data Active Medications Acetaminophen (Acetaminophen 325 Mg Tablet) 650 mg PO Q6H PRN PRN Reason: Pain, Mild (Pain Scale 1-3), fever or headache Amiodarone HCl (Amiodarone Hcl 200 Mg Tablet) 200 mg PO DAILY [facility] Last Admin: 05/07/24 07:57 Dose: 200 mg Documented By: SHAQ Amlodipine Besylate (Amlodipine Besylate 5 Mg Tablet) 5 mg PO DAILY [facility]; Protocol Last Admin: 05/07/24 07:57 Dose: 5 mg Documented By: SHAQ Calcium Carbonate (Calcium Carbonate 750 Mg Tab.Chew) 750 mg PO Q4H PRN PRN Reason: Heartburn Empagliflozin (Empagliflozin 10 Mg Tablet) 10 mg PO DAILY [facility] Last Admin: 05/07/24 07:57 Dose: 10 mg Documented By: SHAQ Furosemide (Furosemide 40 Mg Tablet) 40 mg PO DAILY [facility]; Protocol Last Admin: 05/07/24 07:58 Dose: 40 mg Documented By: SHAQ Lactated Ringer's (Lr) 1,000 mls @ 100 mls/hr IVCONT .Q10H [facility] Last Admin: 05/07/24 03:33 Dose: 100 mls/hr Documented By: PALMIRA Magnesium Hydroxide (Milk Of Magnesia 30 Ml Oral.Susp) 30 ml PO DAILY PRN PRN Reason: Constipation Melatonin (Melatonin 3 Mg Tablet) 6 mg PO BEDTIME PRN PRN Reason: Insomnia Metoprolol Succinate (Metoprolol Succinate Er 100 Mg Tab.Er.24h) 100 mg PO DAILY [facility]; Protocol Last Admin: 05/07/24 07:57 Dose: 100 mg Documented By: SHAQ Morphine Sulfate (Morphine Sulfate 4 Mg/Ml Cartridge) 4 mg IVPUSH Q4H PRN; Protocol PRN Reason: Pain, Severe (Pain Scale 7-10) Last Admin: 05/07/24 08:01 Dose: 4 mg Documented By: SHAQ Omeprazole (Omeprazole 20 Mg Capsule.Dr) 20 mg PO DAILY@0630 [facility] Last Admin: 05/07/24 05:53 Dose: 20 mg Documented By: PALMIRA Ondansetron HCl (Ondansetron Hcl 4 Mg/2 Ml Vial) 4 mg IVPUSH Q6H PRN PRN Reason: Nausea and Vomiting Last Admin: 05/06/24 05:00 Dose: 4 mg Documented By: RONEY Oxycodone HCl (Oxycodone Hcl Immed Release 5 Mg Tablet) 10 mg PO Q4H PRN PRN Reason: Pain, Moderate(Pain Scale 4-6) Sodium Chloride (0.9 % Sodium Chloride Flush 3 Ml Syringe) 3 ml IVFLUSH [facility] Last Admin: 05/07/24 07:58 Dose: Not Given Documented By: SHAQ Non-Admin Reason: IV Running Spironolactone (Spironolactone 25 Mg Tablet) 25 mg PO DAILY [facility]; Protocol Last Admin: 05/07/24 07:57 Dose: 25 mg Documented By: SHAQ Valsartan (Valsartan 160 Mg Tablet) 160 mg PO BID [facility]; Protocol Last Admin: 05/07/24 07:57 Dose: 160 mg Documented By: SHAQ Labs 05/07/24 06:26 05/07/24 06:26 Labs: Laboratory Results - last 24 hr 05/07/24 06:26 MCV 78.2 L MCH 24.3 L MCHC 31.1 RDW 17.2 H Plt Count 242 MPV 10.5 Immature Gran % (Auto) 0.5 H Neut % (Auto) 71.8 Lymph % (Auto) 15.4 L Weston % (Auto) 10.5 Eos % (Auto) 1.2 Baso % (Auto) 0.6 Lymph # (Auto) 1.7 Weston # (Auto) 1.1 Eos # (Auto) 0.1 Baso # (Auto) 0.1 Abs Immat Gran (auto) 0.05 H Absolute Neuts (auto) 7.7 Absolute Nucleated RBC 0.000 Nucleated RBC % (auto) 0.0 Anion Gap 13 Estim Creat Clear Calc 96.7 Estimated GFR > 60 Fasting Glucose 101 H Calcium 9.5 Total Bilirubin 1.0 AST 24 ALT 10 Alkaline Phosphatase 94 Total Protein 6.6 Albumin 3.4 L Assessment and Plan (1) Chronic GI hemorrhage: Status: Acute (2) SAUL (acute kidney injury): Status: Acute Plan 58-year-old male with a history of GI bleeding status post coil at [facility] within the last month presents with diffuse abdominal pain nausea vomiting with blood flecks which he states is similar to the last presentation. In the emergency room CT scan was suggestive of a recurrent GI bleed; seen by GI. Remained hemodynamically stable overnight without bleeding 1. Abdominal pain in backdrop of acute GI bleeding requiring coiling -EGD noted; abdominal pain persistent with diet -CTA abdomen and pelvis with oral contrast -hold Eliquis; last dose a.m. 05/04 -morphine/oxycodone for pain as needed 2. Acute kidney injury (likely secondary to volume depletion) -responded to volume repletion -follow renals/divalent 3. Paroxysmal atrial fibrillation -acceptable rate control at present -hold Eliquis; resume when appropriate as deemed by GI -continue all other outpatient therapies 4. HFpEF -stable and well compensated -continue current therapies Full code Pneumatics Patient will require at least 2 midnights going forward of inpatient stay for workup of presumed GI bleed including specialty consultation. This not be achieved a lesser acute setting Quality Stroke Does the patient have a stroke diagnosis?: No VTE Prior VTE?: No VTE Risk Level:: Medical - moderate - high VTE Device Contraindication: N/A - Device Ordered VTE Drug Contraindication: Treatment Not Indicated
[2024-05-07 13:55] LABS: Lipase 300 U/L (8-78)
[2024-05-07 15:12] VITALS: BP 129/70; PULSE 67; RESP 20; TEMP 37.2; O2SAT 94
[2024-05-07] MEDS: ondansetron HCL 4 MG/2 ML VIAL IVPUSH (15:50)
[2024-05-07] MEDS: Barium Sulfate Oral (Vanilla) 450 ML ORAL.SUSP 900 ML PO (16:10)
[2024-05-07 19:13] VITALS: BP 135/77; PULSE 70; RESP 20; TEMP 37.2; O2SAT 94
[2024-05-08] MEDS: Morphine Sulfate 4 MG/ML CARTRIDGE IVPUSH ×3 (00:06→13:16)
[2024-05-08] MEDS: Lactated Ringers 1,000 ML 100 ML IVCONT ×2 (01:08→19:57)
[2024-05-08 03:18] VITALS: BP 121/68; PULSE 67; RESP 16; TEMP 36.6; O2SAT 92
[2024-05-08] MEDS: Omeprazole 20 MG CAPSULE.DR PO (05:58)
[2024-05-08 07:08] VITALS: BP 137/82; PULSE 65; RESP 16; TEMP 36.4; O2SAT 94
[2024-05-08] MEDS: Metoprolol Succinate ER 100 MG TAB.ER.24H PO (07:37)
[2024-05-08] MEDS: Valsartan 160 MG TABLET PO ×2 (07:37→19:57)
[2024-05-08] MEDS: Spironolactone 25 MG TABLET PO (07:38)
[2024-05-08] MEDS: amLODIPine Besylate 5 MG TABLET PO (07:38)
[2024-05-08] MEDS: Furosemide 40 MG TABLET PO (07:38)
[2024-05-08] MEDS: Amiodarone HCL 200 MG TABLET PO (07:39)
[2024-05-08] MEDS: Empagliflozin 10 MG TABLET PO (07:39)
[2024-05-08] MEDS: oxyCODONE HCl Immed Release 5 MG TABLET 10 MG PO ×2 (09:16→15:13)
--- NOTE | 2024-05-08 13:20 | HO.PM.IMPN ---
Subjective Subjective Date of Service: 05/08/24 Interval History: Continues with persistent right upper quadrant midepigastric tenderness. Review of Systems Denies chest pain Denies shortness of breath Admits nausea vomiting; denies diarrhea Denies fever chills Physical Exam Vital Signs: Vital Signs: Last Vital Signs Temp 97.5 F 05/08/24 07:08 Pulse 65 05/08/24 07:08 Resp 16 05/08/24 07:08 BP 137/82 05/08/24 07:08 Pulse Ox 94 05/08/24 07:08 O2 Del Method Room Air 05/08/24 03:18 BMI result Body Mass Index 32.5 Const: Other: Awake alert oriented x3 no acute distress Resp: Other: Clear to auscultation bilaterally no rales rhonchi or wheezes Cardio: Other: No S4; positive S1-S2; no S3 murmurs rubs or gallops GI: Other: Soft diffusely tender without rebound right upper quadrant/midepigastric area Neuro: Other: Cranial nerves 2 through 12 grossly intact as tested. Sensation intact motor 5/5 all extremities cognition appropriate Extrem: Other: No edema bilaterally Objective Data Active Medications Acetaminophen (Acetaminophen 325 Mg Tablet) 650 mg PO Q6H PRN PRN Reason: Pain, Mild (Pain Scale 1-3), fever or headache Amiodarone HCl (Amiodarone Hcl 200 Mg Tablet) 200 mg PO DAILY [facility] Last Admin: 05/08/24 07:39 Dose: 200 mg Documented By: SHANELLE Amlodipine Besylate (Amlodipine Besylate 5 Mg Tablet) 5 mg PO DAILY [facility]; Protocol Last Admin: 05/08/24 07:38 Dose: 5 mg Documented By: SHANELLE Calcium Carbonate (Calcium Carbonate 750 Mg Tab.Chew) 750 mg PO Q4H PRN PRN Reason: Heartburn Empagliflozin (Empagliflozin 10 Mg Tablet) 10 mg PO DAILY [facility] Last Admin: 05/08/24 07:39 Dose: 10 mg Documented By: SHANELLE Furosemide (Furosemide 40 Mg Tablet) 40 mg PO DAILY [facility]; Protocol Last Admin: 05/08/24 07:38 Dose: 40 mg Documented By: SHANELLE Magnesium Hydroxide (Milk Of Magnesia 30 Ml Oral.Susp) 30 ml PO DAILY PRN PRN Reason: Constipation Melatonin (Melatonin 3 Mg Tablet) 6 mg PO BEDTIME PRN PRN Reason: Insomnia Metoprolol Succinate (Metoprolol Succinate Er 100 Mg Tab.Er.24h) 100 mg PO DAILY [facility]; Protocol Last Admin: 05/08/24 07:37 Dose: 100 mg Documented By: SHANELLE Morphine Sulfate (Morphine Sulfate 4 Mg/Ml Cartridge) 4 mg IVPUSH Q4H PRN; Protocol PRN Reason: Pain, Severe (Pain Scale 7-10) Last Admin: 05/08/24 13:16 Dose: 4 mg Documented By: SHANELLE Omeprazole (Omeprazole 20 Mg Capsule.Dr) 20 mg PO DAILY@0630 [facility] Last Admin: 05/08/24 05:58 Dose: 20 mg Documented By: PALMIRA Ondansetron HCl (Ondansetron Hcl 4 Mg/2 Ml Vial) 4 mg IVPUSH Q6H PRN PRN Reason: Nausea and Vomiting Last Admin: 05/07/24 15:50 Dose: 4 mg Documented By: SHAQ Oxycodone HCl (Oxycodone Hcl Immed Release 5 Mg Tablet) 10 mg PO Q4H PRN PRN Reason: Pain, Moderate(Pain Scale 4-6) Last Admin: 05/08/24 09:16 Dose: 10 mg Documented By: SHANELLE Sodium Chloride (0.9 % Sodium Chloride Flush 3 Ml Syringe) 3 ml IVFLUSH [facility] Last Admin: 05/08/24 07:27 Dose: Not Given Documented By: SHANELLE Non-Admin Reason: IV Running Spironolactone (Spironolactone 25 Mg Tablet) 25 mg PO DAILY [facility]; Protocol Last Admin: 05/08/24 07:38 Dose: 25 mg Documented By: SHANELLE Valsartan (Valsartan 160 Mg Tablet) 160 mg PO BID [facility]; Protocol Last Admin: 05/08/24 07:37 Dose: 160 mg Documented By: SHANELLE Labs 05/07/24 06:26 05/07/24 06:26 Labs: Laboratory Results - last 24 hr 05/07/24 06:26 Lipase 300 H Assessment and Plan (1) Abdominal pain: Status: Acute (2) SAUL (acute kidney injury): Status: Acute Plan 58-year-old male with a history of GI bleeding status post coil at [facility] within the last month presents with diffuse abdominal pain nausea vomiting with blood flecks which he states is similar to the last presentation. In the emergency room CT scan was suggestive of a recurrent GI bleed; seen by GI. Remained hemodynamically stable overnight without bleeding 1. Abdominal pain in backdrop of acute GI bleeding requiring coiling -CT to be reviewed bby GI -hold Eliquis; last dose a.m. 05/04 -morphine/oxycodone for pain as needed 2. Acute kidney injury (likely secondary to volume depletion) -responded to volume repletion -follow renals/divalent 3. Paroxysmal atrial fibrillation -acceptable rate control at present -hold Eliquis; resume when appropriate as deemed by GI -continue all other outpatient therapies 4. HFpEF -stable and well compensated -continue current therapies Full code Pneumatics Patient will require ongoing hospitalization for ongoing abdominal pain and CT scan changes; further specialty consult requested Quality Stroke Does the patient have a stroke diagnosis?: No VTE Prior VTE?: No VTE Risk Level:: Medical - moderate - high VTE Device Contraindication: N/A - Device Ordered VTE Drug Contraindication: Treatment Not Indicated
[2024-05-08 13:40] LABS: MANUAL DIFF FLAG NO
[2024-05-08 13:46] LABS: Basophils Percent Auto 0.3 % (0-2); Eosinophils Absolute Auto 0.2 X10*3/uL (0.0-0.4); Eosinophils Percent Auto 1.6 % (0-4); Hematocrit 33.6 % (42.0-52.0); Hemoglobin 10.5 g/dl (14.0-18.0); Imm Gran Abs Auto 0.05 X10*3/uL (0.00-0.03); Imm Gran Pct Auto 0.4 % (0.0-0.4); Lymphocytes Absolute Auto 1.8 X10*3/uL (1.2-4.9); Lymphocytes Percent Auto 14.5 % (20-40); Mean Corpuscular HGB Conc 31.3 g/dl (31.0-36.0); Mean Corpuscular Hemoglobin 24.3 pg (27.0-33.0); Mean Corpuscular Volume 77.8 fL (80.0-98.0); Monocytes Absolute Auto 1.5 X10*3/uL (0.1-1.2); Monocytes Percent Auto 11.9 % (2-11); Neutrophils Absolute Auto 8.7 x10*3/uL (2.0-8.3); Neutrophils Percent Auto 71.3 % (45-73); Platelet Count 218 X10*3/uL (160-400); Red Blood Count 4.32 X10*6/uL (4.60-5.80); Red Cell Distribution Width 16.9 % (11.0-16.0); White Blood Count 12.1 X10*3/uL (4.8-10.8)
[2024-05-08 14:02] LABS: Anion Gap 11 (12-20); Blood Urea Nitrogen 14 mg/dL (9-16); Calcium 9.4 mg/dL (8.4-10.2); Carbon Dioxide 31 mmol/L (22-29); Chloride 96 mmol/L (96-108); Creatinine Clr Calc Pharmacy 99.2; Estimated Glomerular Filt Rate > 60; Glucose Fasting 66 mg/dL (60-99); Potassium 3.9 mmol/L (3.3-5.1); Sodium 134 mmol/L (135-145)
--- NOTE | 2024-05-08 14:54 | MHC.CM.PN ---
EMR REVIEWED, PER HOSPITLALIST PT CONT'S TO C/O EPIGASTRIC PAIN, NO PLAN FOR DC AT THIS TIME, CM WILL CONT TO FOLLOW DC NEEDS.
[2024-05-08 15:02] VITALS: BP 132/70; PULSE 63; RESP 18; TEMP 36.7; O2SAT 94
[2024-05-08] MEDS: ondansetron HCL 4 MG/2 ML VIAL IVPUSH (16:35)
--- NOTE | 2024-05-08 18:33 | P.CDIM_ITS ---
PROVIDER RESPONSE TEXT: To clarify, the appropriate diagnosis supported by the clinical indicators: Acute QUERY TEXT: PHYSICIAN'S DOCUMENTATION REQUEST Date of Query: 05/08/2024 12:17 PM EDT Patient Name: Nitesh Osorio Admit Date: 05/05/2024 Dear Duke Russell DO, A review of the medical record indicates additional documentation may be needed. Please review below and update the documentation accordingly. Clinical Indicators: Op note dated 05/06 - Findings-Stomach: mild gastritis Reports drinking 3 to 4 beers the day before admission and doing this 1 to 2 times per week. Nausea and vomiting with bright red blood. Clarify which of the following accurately represents the acuity of the Gastritis: Acute Acute on chronic Chronic Other (explain) Clinically unable to determine (explain) Thank you, Susy Knox, CCS, CDIS Use of terms such as suspected, likely, concern for, or probable (associated with a specific diagnosi s that is being evaluated, monitored, or treated as if it exists) are acceptable and can be coded in the inpatient se tting, when documented at the time of discharge. Please use your independent medical judgment in providing your response. THIS QUERY IS PART OF THE PERMANENT MEDICAL RECORD
[2024-05-08 18:59] VITALS: BP 115/64; PULSE 70; RESP 18; TEMP 36.1; O2SAT 99
[2024-05-09 03:03] VITALS: RESP 18
[2024-05-09] MEDS: Morphine Sulfate 4 MG/ML CARTRIDGE IVPUSH (03:03)
[2024-05-09 03:30] VITALS: BP 118/73; PULSE 60; RESP 18; TEMP 36.3; O2SAT 97
[2024-05-09 05:31] LABS: MANUAL DIFF FLAG NO
[2024-05-09 05:34] LABS: Basophils Absolute Auto 0.1 X10*3/uL (0.0-0.2); Basophils Percent Auto 0.5 % (0-2); Eosinophils Absolute Auto 0.3 X10*3/uL (0.0-0.4); Eosinophils Percent Auto 2.8 % (0-4); Hematocrit 31.2 % (42.0-52.0); Hemoglobin 9.8 g/dl (14.0-18.0); Imm Gran Abs Auto 0.04 X10*3/uL (0.00-0.03); Imm Gran Pct Auto 0.4 % (0.0-0.4); Lymphocytes Absolute Auto 1.7 X10*3/uL (1.2-4.9); Lymphocytes Percent Auto 17.6 % (20-40); Mean Corpuscular HGB Conc 31.4 g/dl (31.0-36.0); Mean Corpuscular Hemoglobin 24.3 pg (27.0-33.0); Mean Corpuscular Volume 77.2 fL (80.0-98.0); Mean Platelet Volume 10.8 fL (9.4-12.4); Monocytes Absolute Auto 1.1 X10*3/uL (0.1-1.2); Monocytes Percent Auto 11.4 % (2-11); Neutrophils Absolute Auto 6.3 x10*3/uL (2.0-8.3); Neutrophils Percent Auto 67.3 % (45-73); Platelet Count 205 X10*3/uL (160-400); Red Blood Count 4.04 X10*6/uL (4.60-5.80); Red Cell Distribution Width 16.7 % (11.0-16.0); White Blood Count 9.4 X10*3/uL (4.8-10.8)
[2024-05-09 05:50] LABS: Anion Gap 13 (12-20); Blood Urea Nitrogen 12 mg/dL (9-16); Calcium 9.2 mg/dL (8.4-10.2); Carbon Dioxide 26 mmol/L (22-29); Chloride 100 mmol/L (96-108); Creatinine Clr Calc Pharmacy 108.7; Estimated Glomerular Filt Rate > 60; Glucose Fasting 89 mg/dL (60-99); Potassium 3.7 mmol/L (3.3-5.1); Sodium 135 mmol/L (135-145)
[2024-05-09] MEDS: Lactated Ringers 1,000 ML 100 ML IVCONT (05:59)
[2024-05-09] MEDS: Omeprazole 20 MG CAPSULE.DR PO (06:00)
[2024-05-09 07:25] VITALS: BP 124/76; PULSE 66; RESP 18; TEMP 36.8; O2SAT 94
[2024-05-09] MEDS: Spironolactone 25 MG TABLET PO (09:24)
[2024-05-09] MEDS: Metoprolol Succinate ER 100 MG TAB.ER.24H PO (09:24)
[2024-05-09] MEDS: Valsartan 160 MG TABLET PO (09:24)
[2024-05-09] MEDS: Amiodarone HCL 200 MG TABLET PO (09:24)
[2024-05-09] MEDS: Empagliflozin 10 MG TABLET PO (09:25)
[2024-05-09] MEDS: amLODIPine Besylate 5 MG TABLET PO (09:25)
[2024-05-09] MEDS: Furosemide 40 MG TABLET PO (09:25)
--- NOTE | 2024-05-09 11:57 | MHC.CM.PN ---
Addendum entered by Carla Vieyra RN 05/09/24 14:32: Patient medically cleared for dc home self care. Original Note: Per MD rounds plan to advance diet. If tolerating diet may dc later today, home self care. IMM delivered. Patient's family will transport home.
--- NOTE | 2024-05-09 13:54 | P.DS_ITS ---
DS: Providers Provider Date of Service: 05/09/24 Date of admission: 05/05/24 13:50 Date of discharge: 05/09/24 Primary care physician: YESY Martinez Consults: 05/05/24 13:12 Consult to Gastroenterology Stat Consulting Provider: Zeus Jimenez Reason for consultation: Abdominal pain, ?GI bleed Has provider been notified: Yes DS: Diagnosis Discharge Diagnosis (1) Abdominal pain: Status: Acute (2) SAUL (acute kidney injury): Status: Acute (3) Uncontrolled hypertension: Status: Acute (4) Renita-Foster tear: Status: Acute DS: Summary Hospital Course Hospital Course: Admission note HPI 58-year-old male, with a history of GI bleeding status post coiling at [facility], heart failure, hypertension, atrial fibrillation on Eliquis, FARHEEN, alcohol abuse, who presents emergency department with complaints of abdominal pain which started last night. Patient states that he ate dinner around 6:00 p.m. took a nap and woke with abdominal pain at around 8:00 p.m. last night. Patient states that the abdominal pain is constant. When asked to describe his pain, he is unable to discern whether not this is a burning pain, sharp pain or cramping leg pain, he is states that this pain is similar to the pain he had in the past which caused him to be transferred to [facility]. He endorses chills, no fevers. Denies any coffee-ground emesis. He states that he has had nausea and 4 episodes of vomiting. He states during his last episode of vomiting which was earlier this morning he noticed a small drop of blood mixed into the vomit. No hematochezia or melena. Reports his last bowel movement was yesterday, normal. He is currently on Eliquis, states that he did not take his dose last night or this morning. Last dose of Eliquis was yesterday morning (05/04). Hospital course The patient was admitted for evaluation of Abdominal pain in backdrop of acute GI bleeding requiring coiling at [facility] previously. Had [address] scans during hospital stay showing evidence of mesentric stranding which are suspecious for recurrent GI bleeding. Eliquis was held during hospital stay with no recurrence of bleeding. GI did an EGD which did not show any acute findings. suspecion of Renita foster tear causing the bleed. Was on morphine/oxycodone for pain as needed. GI recommended outpatient follow up for further work up of needed of this abnormalities on CT as he might need to repeat the CT to check for resolution of Mesentric stranding or he might need a surgical biopsy for the mesentry. He was noted to have Acute kidney injury likely secondary to volume depletion which responded well to volume repletion as creatinine improved back to baseline and his home medications were restarted. To repeat BMP as outpatient and send result to PCP. Discharge plan Take Omeprazole daily Restart Eliquis and blood pressure medications Follow with dr Rahman in Office for further work up of the recurrent abdominal pain incidents To repeat blood test next week Time Attestation Discharge Coordination Time (in mins): 38 Quality: Safe Use of Opioids Does Pt have an Active Cancer Diagnosis on the Problem List?: No Quality: Stroke Does the patient have a stroke diagnosis?: No Physical Exam Vital Signs: Vital Signs: Last Vital Signs Temp 98.2 F 05/09/24 07:25 Pulse 66 05/09/24 07:25 Resp 18 05/09/24 07:25 BP 124/76 05/09/24 07:25 Pulse Ox 94 05/09/24 07:25 O2 Del Method Room Air 05/09/24 07:25 BMI result Body Mass Index 32.5 Const: Other: Constitutional : Awake, interactive, not in distress Neck : Normal inspection, Supple Cardiovascular : RRR, no JVP, no lower extremity edema Respiratory : good bilateral air entry, no crackles, wheezes or rhonchi Gastrointestinal: soft, lax, Normal bowel sounds, Non tender Skin : Warm, Dry Neurological : Alert & oriented x3, No focal deficit DS: Data Data Completed and Pending Completed studies during hospitalization [Text1]: Pending at discharge 05/06/24 13:44 Surgical [PTH] Routine Procedures Assistance with Respiratory Ventilation, Less than 24 Consecutive Hours, Continuous Positive Airway Pressure (02/24/24) Detoxification Services for Substance Abuse Treatment (01/24/21) Excision of Duodenum, Via Natural or Artificial Opening Endoscopic, Diagnostic (02/24/24) Excision of Stomach, Pylorus, Via Natural or Artificial Opening Endoscopic, Diagnostic (02/24/24) Sikh of Cardiac Rhythm, Single (05/17/21) Transfusion of Nonautologous Red Blood Cells into Peripheral Vein, Percutaneous Approach (04/26/24) Labs on day of discharge: Laboratory Results - last 24 hr 05/08/24 05/09/24 13:05 05:18 WBC 9.4 RBC 4.04 L Hgb 9.8 L Hct 31.2 L MCV 77.2 L MCH 24.3 L MCHC 31.4 RDW 16.7 H Plt Count 205 MPV 10.8 Immature Gran % (Auto) 0.4 Neut % (Auto) 67.3 Lymph % (Auto) 17.6 L [place]ades % (Auto) 11.4 H Eos % (Auto) 2.8 Baso % (Auto) 0.5 Lymph # (Auto) 1.7 [place]ades # (Auto) 1.1 Eos # (Auto) 0.3 Baso # (Auto) 0.1 Abs Immat Gran (auto) 0.04 H Absolute Neuts (auto) 6.3 Absolute Nucleated RBC 0.000 Nucleated RBC % (auto) 0.0 Sodium 134 L 135 Potassium 3.9 3.7 Chloride 96 100 Carbon Dioxide 31 H 26 Anion Gap 11 L 13 BUN 14 12 Creatinine 1.15 1.05 Estim Creat Clear Calc 99.2 108.7 Estimated GFR > 60 > 60 Fasting Glucose 66 89 Calcium 9[address] scan - abdomen: Radiologist's impression: ITS Impressions Abdomen/Pelvis CT 05/05/24 09:30 IMPRESSION: Interval appearance of epigastric/right upper quadrant mesenteric stranding. Patient with history of hemorrhage and prior GDA embolization coils. Findings suspicious for recurrent gastrointestinal hemorrhage. Electronically signed by: Karen Cruz MD 05/05/2024 10:11 AM EDT Abdomen/Pelvis CT 05/07/24 15:42 IMPRESSION: 1. Interval increase in mesenteric stranding along the mesenteric root. The stranding appears to be more associated with mesentery and the lesser curvature of the pyloric stomach as opposed to pancreas or duodenum. Small volume free fluid subjacent to the pyloric stomach, increased from prior. Gastric wall thickening along the pyloric stomach is possible. Evaluation is partially obscured by metallic streak artifact from the gastroduodenal artery embolization coil pack. Taken together, these findings could represent recurrent upper GI bleed versus panniculitis. If clinically warranted, consider direct visualization with endoscopy for further assessment. 2. Cholelithiasis without evidence for acute cholecystitis. Fleischner guidelines were followed. Electronically signed by: Nila Robison DO 05/07/2024 06:01 PM EDT RP Discharge Plan Discharge Anticipated Discharge Date/Time: 05/09/24 13:49 Patient Disposition: Home, Self-Care Discharge Diagnosis: Acute kidney injury GI bleed Referrals: Lisa Heard, EVALUATION ENGINEER [Primary Care Provider] - 1 Week Discharge Medications: Continued (DME) blood pressure monitor [Blood Pressure Kit] Kit See Rx Instructions .Route Qty: 1 0RF Rx Instructions: As directed Eliquis 5 mg tablet 5 mg PO BID 90 Days Qty: 180 1RF amiodarone 200 mg tablet 200 mg PO DAILY Qty: 90 3RF diphenhydramine-acetaminophen [Tylenol PM Extra Strength] 25-500 mg Tablet 2 tab PO BEDTIME PRN (Reason: Pain/Sleep) Jardiance 10 mg Tablet 10 mg PO DAILY Qty: 90 0RF furosemide 40 mg tablet 40 mg PO DAILY Qty: 30 0RF spironolactone 25 mg Tablet 25 mg PO DAILY Qty: 90 0RF Protocol: Hold for SBP< HOLD for SBP < : 90 valsartan 160 mg Tablet 160 mg PO BID Qty: 180 0RF Protocol: Hold for SBP< HOLD for SBP < : 90 amlodipine 5 mg tablet 5 mg PO DAILY Qty: 90 0RF (DME) Blood Pressure Cuff Misc See Rx Instructions .Route Qty: 1 0RF Rx Instructions: As directed metoprolol succinate [Toprol XL] 100 mg tablet extended release 24 hr 100 mg PO DAILY Qty: 90 3RF Changed omeprazole 20 mg capsule,delayed release(DR/EC) 20 mg PO DAILY@0630 Qty: 90 0RF Discharge Orders: Discharge Order (Routine); Ordered 05/09/24 Ordered By: Magda Benedict Diet: Advance to usual diet Activity on Discharge: As tolerated Stand Alone Forms: Patient Portal Discharge page Print Language: Beninese Other Ambulatory Orders: Basic Metabolic Panel (Routine) Timeframe: 5 Days Facility: [facility] - Location: Laboratory Ordered By: Magda Benedict Care Plan Goals: Take Omeprazole daily Restart Eliquis and blood pressure medications Follow with dr Rahman in Office for further work up of the recurrent abdominal pain incidents To repeat blood test next week Health Concerns: GI bleed Acute kidney injury Plan of Treatment: Omeprazole Follow up with GI Assessment: as above
== END 2024-05-09 15:14 | disposition home or self-care (01) | DRG 369 ==
LOC: HO.ED 13:19 → HO.EDOVER 14:01 → HO.S3 14:20
PROVIDERS: Internal Medicine Gastroenterology; Physician Assistant Medical; Admitting Provider Hospitalist; Emergency Provider Emergency Medicine; PCP Nurse Practitioner Family; Visit Provider Student in an Organized Health Care Education/Training Program
PROC: 0DB98ZX Excision of Duodenum, Via Natural or Artificial Opening Endoscopic, Diagnostic (ICD-10-PCS; principal; 2024-05-06 13:10)
DX: K22.6 Gastro-esophageal laceration-hemorrhage syndrome (principal); I50.32 Chronic diastolic (congestive) heart failure; N17.9 Acute kidney failure, unspecified; G47.33 Obstructive sleep apnea (adult) (pediatric); F10.11 Alcohol abuse, in remission; Z95.0 Presence of cardiac pacemaker; E86.9 Volume depletion, unspecified; K29.01 Acute gastritis with bleeding; I48.0 Paroxysmal atrial fibrillation; I11.0 Hypertensive heart disease with heart failure; Z79.01 Long term (current) use of anticoagulants; Z79.899 Other long term (current) drug therapy
CPT/HCPCS: 36415; 74176; 80048; 80053; 80307; 81001; 82272; 83690; 85025; 86850; 86900; 86901; 88305; 88313; 88342; 99285; J2003; J2270; J2405; J2470; J2704; J7120

== ENCOUNTER → 2024-05-05 13:50 | Outpatient (BNV) | payer OTHER, SELFPAY | PROVIDERS: Admitting Provider Hospitalist; Emergency Provider Emergency Medicine; PCP Nurse Practitioner Family; Visit Provider Internal Medicine Gastroenterology | DX: K29.70 Gastritis, unspecified, without bleeding (principal); K31.89 Other diseases of stomach and duodenum; K29.81 Duodenitis with bleeding | CPT/HCPCS: 43239 ==

== ENCOUNTER → 2024-05-05 13:50 | Outpatient (BNV) | payer OTHER, SELFPAY | PROVIDERS: Admitting Provider Hospitalist; Emergency Provider Emergency Medicine; PCP Nurse Practitioner Family; Visit Provider Hospitalist | DX: R10.84 Generalized abdominal pain (principal); N17.9 Acute kidney failure, unspecified | CPT/HCPCS: 99223; 99232; 99239 ==

== ENCOUNTER 2024-05-07 10:07 | Outpatient (REF) | payer OTHER, SELFPAY | END 2024-05-07 10:08 | disposition home or self-care (01) | LOC: HO.HOSX 10:07 | PROVIDERS: Visit Provider Orthopaedic Surgery | DX: Z13.89 Encounter for screening for other disorder (principal) ==

== ENCOUNTER → 2024-05-09 23:59 | Outpatient (BNV) | payer OTHER, SELFPAY ==
--- NOTE | 2024-05-12 18:53 | A.OFFVIS_ITS ---
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 Allergies No Known Allergies Allergy (Verified 05/05/24 08:23) [facility] Medical History Anemia Acute exacerbation of CHF (congestive heart failure) Morbid obesity Gastrointestinal bleeding History of cardioversion FARHEEN on CPAP Alcohol abuse HTN (hypertension) (HFpEF) heart failure with preserved ejection fraction Surgical History History of cardiac radiofrequency ablation History of esophagogastroduodenoscopy (EGD) Hx of colonoscopy Status post ORIF of fracture of ankle S/P hip replacement Family History Mother HTN (hypertension) Diabetes mellitus Father Diabetes mellitus HTN (hypertension) Maternal Uncle Colon cancer Social History Household Members: Significant Other and Children Household Members Other:: Girlfriend and daughter Housing: Apartment Are you a primary pharmacist critical care to a significant other at home: No Do you presently have visiting nurse or other home services: No Alcohol intake: former Patient Tobacco Use Status: Never used Tobacco e-Cigarette/Vaping Use: Never Used Second Hand Smoke Exposure: No Substance Use Type: Marijuana Advance Directives Date on File: 01/25/21 service: No Current occupational status: retired Current occupation: rt handed Cognitive needs: No Hearing needs: No Vision needs: No Office Procedures Cardiac Device Check Cardiac Device Check Details: Date of service 05/09/2024; Battery life >12 years; normal lead parameters; no treated VT/VF; normal ICD function. [id number] Cardiac Interrogation, implant defibrillator w/interim Procedure code (CPT) selection complete Assessment & Plan Assessment & Plan (1) ICD (implantable cardioverter-defibrillator) in place: Code(s): Z95.810 - Presence of automatic (implantable) cardiac defibrillator Category: Medical (2) Ventricular tachycardia: Code(s): I47.20 - Ventricular tachycardia, unspecified Category: Medical (3) (HFpEF) heart failure with preserved ejection fraction: Code(s): I50.30 - Unspecified diastolic (congestive) heart failure Category: Medical Plan x Coding Level of Care Code Procedure Only Diagnoses ICD (implantable cardioverter-defibrillator) in place Z95.810 Ventricular tachycardia I47.20 (HFpEF) heart failure with preserved ejection fraction I50.30 CPT Codes Cardiac Device Check - Cardiac Device 13: [id number] Cardiac Interrogation, implant defibrillator w/interim ([id number])
== END ==
PROVIDERS: PCP Nurse Practitioner Family; Visit Provider Internal Medicine
DX: I47.20 Ventricular tachycardia, unspecified (principal); I50.30 Unspecified diastolic (congestive) heart failure; Z95.810 Presence of automatic (implantable) cardiac defibrillator
CPT/HCPCS: 93295

== ENCOUNTER → 2024-05-09 23:59 | Outpatient (BNV) | payer OTHER, SELFPAY ==
--- NOTE | 2024-05-12 18:51 | A.OFFVIS_ITS ---
Intake Visit Reasons: Remote HF monitoring - [employer] Allergies No Known Allergies Allergy (Verified 05/05/24 08:23) [facility] Medical History Anemia Acute exacerbation of CHF (congestive heart failure) Morbid obesity Gastrointestinal bleeding History of cardioversion FARHEEN on CPAP Alcohol abuse HTN (hypertension) (HFpEF) heart failure with preserved ejection fraction Surgical History History of cardiac radiofrequency ablation History of esophagogastroduodenoscopy (EGD) Hx of colonoscopy Status post ORIF of fracture of ankle S/P hip replacement Family History Mother HTN (hypertension) Diabetes mellitus Father Diabetes mellitus HTN (hypertension) Maternal Uncle Colon cancer Social History Household Members: Significant Other and Children Household Members Other:: Girlfriend and daughter Housing: Apartment Are you a primary animal care technician to a significant other at home: No Do you presently have visiting nurse or other home services: No Alcohol intake: former Patient Tobacco Use Status: Never used Tobacco e-Cigarette/Vaping Use: Never Used Second Hand Smoke Exposure: No Substance Use Type: Marijuana Advance Directives Date on File: 01/25/21 service: No Current occupational status: retired Current occupation: rt handed Cognitive needs: No Hearing needs: No Vision needs: No Office Procedures Cardiac Device Check Cardiac Device Check Details: Date of service- 05/09/2024; based on impedance data and physiological variables, there is possible optivol fluid accumulation Mar to 27 apr 2024. [id number] Cardiac Device Interrogation, cardio physiologic monitor Procedure code (CPT) selection complete Assessment & Plan Assessment & Plan (1) ICD (implantable cardioverter-defibrillator) in place: Code(s): Z95.810 - Presence of automatic (implantable) cardiac defibrillator Category: Medical (2) Acute heart failure with preserved ejection fraction (HFpEF): Code(s): I50.31 - Acute diastolic (congestive) heart failure Category: Medical Plan x Coding Level of Care Code Procedure Only Diagnoses ICD (implantable cardioverter-defibrillator) in place Z95.810 Acute heart failure with preserved ejection fraction (HFpEF) I50.31 CPT Codes Cardiac Device Check - Cardiac Device 15: [id number] Cardiac Device Interrogation, cardio physiologic monitor ([id number])
== END ==
PROVIDERS: PCP Nurse Practitioner Family; Visit Provider Internal Medicine
DX: I50.31 Acute diastolic (congestive) heart failure (principal); Z95.810 Presence of automatic (implantable) cardiac defibrillator
CPT/HCPCS: 93297

== ENCOUNTER 2024-05-14 11:15 | Outpatient (AMB) | payer OTHER, SELFPAY ==
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
[2024-05-14 11:47] VITALS: BMI 32.4
== END 2024-05-14 12:28 | disposition home or self-care (01) ==
LOC: HO.HOS 11:16
PROVIDERS: PCP Nurse Practitioner Family; Visit Provider Orthopaedic Surgery
DX: S52.501A Unspecified fracture of the lower end of right radius, initial encounter for closed fracture (principal); M19.072 Primary osteoarthritis, left ankle and foot; Z95.810 Presence of automatic (implantable) cardiac defibrillator; I48.0 Paroxysmal atrial fibrillation
CPT/HCPCS: 99024

== ENCOUNTER → 2024-05-14 11:38 | Outpatient (BNV) | payer OTHER, SELFPAY | PROVIDERS: Visit Provider Radiology Diagnostic Radiology | DX: S52.571D Other intraarticular fracture of lower end of right radius, subsequent encounter for closed fracture with routine healing (principal) | CPT/HCPCS: 73110 ==

== ENCOUNTER 2024-05-14 13:38 | Outpatient (AMB) | payer OTHER, SELFPAY ==
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
[2024-05-14 13:42] VITALS: BP 126/68; PULSE 65; BMI 33.1
== END 2024-05-14 14:21 | disposition home or self-care (01) ==
LOC: HO.HCS 13:39
PROVIDERS: PCP Nurse Practitioner Family; Visit Provider Internal Medicine
DX: I48.0 Paroxysmal atrial fibrillation (principal); I42.8 Other cardiomyopathies; I47.20 Ventricular tachycardia, unspecified; F10.10 Alcohol abuse, uncomplicated; E66.01 Morbid (severe) obesity due to excess calories; G47.33 Obstructive sleep apnea (adult) (pediatric); Z99.89 Dependence on other enabling machines and devices
CPT/HCPCS: 93010; 99214

== ENCOUNTER 2024-05-14 15:40 | Outpatient (REF) | payer OTHER, SELFPAY ==
--- NOTE | ~2024-05-14 | XR_ITS ---
EXAMINATION: XR WRIST, RIGHT CLINICAL INFORMATION: M25.531 - Pain in right wrist COMPARISON: 04/24/2024, 04/16/2024, 03/26/2024, 03/21/2024. CT right wrist 03/27/2024. TECHNIQUE: PA, lateral, and oblique views of the right wrist. FINDINGS: There has been ORIF of a distal comminuted intra-articular radial fracture with plate and screw fixation. The hardware is intact and appears well seated. There is episcopal of gross anatomic alignment. There is no current cortical step-off seen of the fracture line in the intra-articular aspect. The fracture lines appear minus distinct with bony periostitis and bridging callus formation suggesting continued healing. No additional fractures. Probable lungs demonstrate mild widening of the scapholunate interval on today's exam, measuring up to 5 mm. Cannot exclude scapholunate ligament injury. Moderate osteoarthrosis first CMC joint. Mild osteoarthrosis STT joints. Mild spurring radiocarpal joint. Soft tissue swelling persists. XR/XR wrist RT min 3V IMPRESSION: 1. ORIF of comminuted intra-articular distal radial fracture without complication. Roman [employer] of anatomic alignment. 2. Continued healing of the fracture noted. 3. Widened scapholunate interval noted on the AP projection, raising possibility of scapholunate ligament injury. Electronically signed by: Per Ritchie MD 06/17/2024 01:32 PM [facility] [place]
== END 2024-05-14 15:41 | disposition home or self-care (01) ==
LOC: HO.HOSX 15:40
PROVIDERS: Visit Provider Orthopaedic Surgery
DX: M25.531 Pain in right wrist (principal); I48.0 Paroxysmal atrial fibrillation; I42.8 Other cardiomyopathies; I47.20 Ventricular tachycardia, unspecified; F10.10 Alcohol abuse, uncomplicated; E66.01 Morbid (severe) obesity due to excess calories; G47.33 Obstructive sleep apnea (adult) (pediatric); Z99.89 Dependence on other enabling machines and devices; M19.072 Primary osteoarthritis, left ankle and foot; Z95.810 Presence of automatic (implantable) cardiac defibrillator
CPT/HCPCS: 73110; 93005; 99212

== ENCOUNTER 2024-05-27 10:06 | Outpatient (AMB) | payer OTHER, SELFPAY ==
[2024-05-27 10:07] VITALS: BP 116/64; PULSE 71; O2SAT 98; BMI 32.1
--- NOTE | 2024-05-27 10:07 | MHC.PC.OV ---
Vital Signs 05/27/24 10:07 Height 6 ft 3 in Weight 257 lb BMI 32.1 BP 116/64 Blood Pressure Location Lt brachial Position Sitting Pulse 71 Pulse Source Pulse Oximeter Pulse Oximetry (%) 98 Oxygen Delivery Method Room Air Intake Visit Reasons: f/u BP and GI bleed Intake Note: Patient is here to follow up Telephone Exchange Operator Required: No Allergies No Known Allergies Allergy (Verified 05/27/24 10:07) Medication List - Last Reconciled 05/27/24 by Liliane Mata PA-C amiodarone 200 mg PO DAILY amlodipine 5 mg PO DAILY apixaban (Eliquis) 5 mg PO BID 90 days blood pressure monitor (Blood Pressure Kit) As directed diphenhydramine-acetaminophen 25-500 mg (Tylenol PM Extra Strength) 2 tabs PO BEDTIME PRN empagliflozin (Jardiance) 10 mg PO DAILY furosemide 40 mg PO DAILY metoprolol succinate ER (Toprol XL) 100 mg PO DAILY miscellaneous medical supply (Blood Pressure Cuff) As directed omeprazole 20 mg PO DAILY@0630 oxycodone 5 mg PO Q4H PRN spironolactone 25 mg See Protocol PO DAILY valsartan 160 mg See Protocol PO BID Tobacco use date assessed: 02/15/24 Dental Screening Dental Screen Date: 02/15/24 HPI f/u BP and GI bleed HPI Details 58-year-old male with past medical history of hypertension, alcohol use disorder, atrial fibrillation on Eliquis, and ICM with a pacemaker, heart failure with preserved eF, hx of GI bleed who presents today for follow up. In the past several months patient has been hospitalized for GI bleeding and has been transferred to [facility]. He does continue on anticoagulation. Within the last few weeks he has undergone atrial fibrillation ablation and hospitalization with congestive heart failure. Patient was seen by [facility] 05/14/2024 stable on current medication regimen. Patient was also seen by [facility] Orthopedics for distal radius fracture which was surgically corrected and seen postoperatively doing well. Patient states his right wrist pain has improved and denies any symptoms. Denies any symptoms of GI bleed such as bloody vomit or stools. He has a follow up with GI and Cardiology coming up in the coming months and has no acute concerns today. [facility] Medical History Anemia Acute exacerbation of CHF (congestive heart failure) Morbid obesity Gastrointestinal bleeding History of cardioversion FARHEEN on CPAP Alcohol abuse HTN (hypertension) (HFpEF) heart failure with preserved ejection fraction Surgical History History of cardiac radiofrequency ablation History of esophagogastroduodenoscopy (EGD) Hx of colonoscopy Status post ORIF of fracture of ankle S/P hip replacement Family History Mother HTN (hypertension) Diabetes mellitus Father Diabetes mellitus HTN (hypertension) Maternal Uncle Colon cancer Social History Household Members: Significant Other and Children Household Members Other:: Girlfriend and daughter Housing: Apartment Are you a primary rn urgent care to a significant other at home: No Do you presently have visiting nurse or other home services: No Alcohol intake: former Patient Tobacco Use Status: Never used Tobacco e-Cigarette/Vaping Use: Never Used Second Hand Smoke Exposure: No Substance Use Type: Marijuana Advance Directives Date on File: 01/25/21 service: No Current occupational status: retired Current occupation: rt handed Cognitive needs: No Hearing needs: No Vision needs: No Questionnaire Thrive Questionnaire Date Thrive assessed: 05/06/24 AUDIT C Alcohol Use Questionnaire (AUDIT-C) 1. How often do you have a drink containing alcohol?: 2-3 times a week 2. How many drinks containing alcohol do you have on a typical day when you are drinking?: 1 or 2 3. How often do you have six or more drinks on one occasion?: Never Total Score: 3 DIEUDONNE-7 AMB Questionnaire DIEUDONNE-7 Date DIEUDONNE - 7 assessed: 05/12/23 Source: Developed by Drs. Ace Beckwith, Evelyne Ramirez, Carlos Garcia and colleagues, with an educational yaz from [employer]. Review of Systems Const Denies body aches and Denies fever(s) Eyes Reports no additional complaints ENT Reports no additional complaints Card Denies chest pain, Denies irregular heart rhythm, Denies leg edema, Denies lightheadedness and Denies dyspnea Resp Denies cough and Denies dyspnea GI Reports no additional complaints Reports no additional complaints Musc Reports no additional complaints Skin/Breast Reports system reviewed and no additional complaints, except as documented Physical exam (Primary Care) Vital Signs: Last Vital Signs Pulse 71 05/27/24 10:07 BP 116/64 05/27/24 10:07 Pulse Ox 98 05/27/24 10:07 Oxygen Delivery Method Room Air 05/27/24 10:07 BMI result Body Mass Index 32.1 Tobacco/Smoking Status: Tobacco use Status Tobacco use date assessed 02/15/24 05/27/24 10:08 Patient Tobacco Use Status Never used Tobacco 05/27/24 10:08 Tobacco use type 02/28/23 13:31 e-Cigarette/Vaping Use Never Used 05/27/24 10:08 Thrive Assessment: Date of Thrive Assessment Date Thrive assessed 05/06/24 05/27/24 10:08 Const General: cooperative, healthy appearing, comfortable and no acute distress Orientation/consciousness: patient oriented x3 HENMT Head: Yes normocephalic Ears: hearing grossly normal bilaterally General nose exam: Normal external nose present Eyes General: appearance normal, both eyes and all related structures Conjunctivae: conjunctivae normal Neck Neck: Yes full ROM and Yes no lymphadenopathy Resp Effort & Inspection: normal respiratory effort Auscultation: clear to auscultation bilaterally, no crackles, no rales, no rhonchi and no wheezes Cardio Rate: regular rate Rhythm: regular rhythm Skin General skin exam: no rashes or lesions noted Neuro General: patient oriented x3 Gait exam (Neuro): Normal gait present Extrem General: Yes normal to inspection, Yes full ROM and No edema Psych Affect: normal affect Attitude: cooperative Insight: Good insight present (Psych) Judgement: Good judgement present (Psych) Coding Level of Care Code Est Pt Level 3 (20223) Diagnoses Renita-Hernandez tear K22.6 Uncontrolled hypertension I10 Distal radius fracture, right S52.501A PAF (paroxysmal atrial fibrillation) I48.0 (HFpEF) heart failure with preserved ejection fraction I50.30 Assessment & Plan Assessment & Plan (1) Renita-Hernandez tear: Code(s): K22.6 - Gastro-esophageal laceration-hemorrhage syndrome Category: Medical Plan: Per GI suspected Renita-Hernandez tear on last endoscopy as source for GI bleed. Advised patient to continue on omeprazole and continue to follow with Gastroenterology. Patient has follow up coming up in August after endoscopy in July. (2) Uncontrolled hypertension: Code(s): I10 - Essential (primary) hypertension Category: Medical Plan: Blood pressure at goal today. Continue on current blood pressure medication. Avoid salt intake and encourage healthy diet and regular exercise. (3) Distal radius fracture, right: Code(s): S52.501A - Unspecified fracture of the lower end of right radius, initial encounter for closed fracture Category: Medical Plan: Cleared by Orthopedics currently asymptomatic. (4) PAF (paroxysmal atrial fibrillation): Code(s): I48.0 - Paroxysmal atrial fibrillation Category: Medical Plan: Status post ablation. Per Cardiology goal is to transition patient off of metoprolol and possibly apixaban. Continue to follow up with Cardiology. (5) (HFpEF) heart failure with preserved ejection fraction: Code(s): I50.30 - Unspecified diastolic (congestive) heart failure Category: Medical Plan: Continue on current medication regimen advised good control of blood pressure, blood sugars and cholesterol. Continue to follow with Cardiology. Plan This note was constructed using voice recognition software. While every effort has been made to ensure accuracy and educational institution curator, still areas may have been included sometimes these areas may affect the content or meeting of the given symptoms. Total time spent caring for the patient today was 30 minutes. This includes time spent before the visit reviewing the chart, time spent during the visit, and time spent after the visit and documentation.
== END 2024-05-27 10:53 | disposition home or self-care (01) ==
DX: K22.6 Gastro-esophageal laceration-hemorrhage syndrome (principal); I48.0 Paroxysmal atrial fibrillation; I50.30 Unspecified diastolic (congestive) heart failure; I10 Essential (primary) hypertension; S52.501A Unspecified fracture of the lower end of right radius, initial encounter for closed fracture

== ENCOUNTER → 2024-05-27 10:06 | Outpatient (BNVA) | payer OTHER, SELFPAY | DX: K22.6 Gastro-esophageal laceration-hemorrhage syndrome (principal); I48.0 Paroxysmal atrial fibrillation; I11.0 Hypertensive heart disease with heart failure; I50.30 Unspecified diastolic (congestive) heart failure; S52.501D Unspecified fracture of the lower end of right radius, subsequent encounter for closed fracture with routine healing | CPT/HCPCS: 99212 ==

== ENCOUNTER → 2024-06-09 23:59 | Outpatient (BNV) | payer OTHER, SELFPAY ==
--- NOTE | 2024-06-16 19:06 | MHC.OFFVIS ---
Intake Visit Reasons: Remote HF monitoring- [employer] Allergies No Known Allergies Allergy (Verified 05/27/24 10:07) [facility] Medical History Anemia Acute exacerbation of CHF (congestive heart failure) Morbid obesity Gastrointestinal bleeding History of cardioversion FARHEEN on CPAP Alcohol abuse HTN (hypertension) (HFpEF) heart failure with preserved ejection fraction Surgical History History of cardiac radiofrequency ablation History of esophagogastroduodenoscopy (EGD) Hx of colonoscopy Status post ORIF of fracture of ankle S/P hip replacement Family History Mother HTN (hypertension) Diabetes mellitus Father Diabetes mellitus HTN (hypertension) Maternal Uncle Colon cancer Social History Household Members: Significant Other and Children Household Members Other:: Girlfriend and daughter Housing: Apartment Are you a primary gericare aide to a significant other at home: No Do you presently have visiting nurse or other home services: No Alcohol intake: former Patient Tobacco Use Status: Never used Tobacco e-Cigarette/Vaping Use: Never Used Second Hand Smoke Exposure: No Substance Use Type: Marijuana Advance Directives Date on File: 01/25/21 service: No Current occupational status: retired Current occupation: rt handed Cognitive needs: No Hearing needs: No Vision needs: No Office Procedures Cardiac Device Check Cardiac Device Check Details: Date of service- 06/09/2024; based on impedance data and physiological variables, there is no evidence of worsening congestive heart failure. [id number] Cardiac Device Interrogation, cardio physiologic monitor Procedure code (CPT) selection complete Assessment & Plan Assessment & Plan (1) ICD (implantable cardioverter-defibrillator) in place: Code(s): Z95.810 - Presence of automatic (implantable) cardiac defibrillator Category: Medical (2) (HFpEF) heart failure with preserved ejection fraction: Code(s): I50.30 - Unspecified diastolic (congestive) heart failure Category: Medical Plan x Coding Level of Care Code Procedure Only Diagnoses ICD (implantable cardioverter-defibrillator) in place Z95.810 (HFpEF) heart failure with preserved ejection fraction I50.30 CPT Codes Cardiac Device Check - Cardiac Device 15: [id number] Cardiac Device Interrogation, cardio physiologic monitor ([id number])
== END ==
PROVIDERS: Visit Provider Internal Medicine
DX: I50.30 Unspecified diastolic (congestive) heart failure (principal); Z95.810 Presence of automatic (implantable) cardiac defibrillator
CPT/HCPCS: 93297

== ENCOUNTER → 2024-07-10 23:59 | Outpatient (BNV) | payer OTHER, SELFPAY ==
--- NOTE | 2024-07-20 12:38 | A.OFFVIS_ITS ---
Intake Visit Reasons: Remote HF monitoring- [employer] Allergies No Known Allergies Allergy (Verified 05/27/24 10:07) [facility] Medical History Anemia Acute exacerbation of CHF (congestive heart failure) Morbid obesity Gastrointestinal bleeding History of cardioversion FARHEEN on CPAP Alcohol abuse HTN (hypertension) (HFpEF) heart failure with preserved ejection fraction Surgical History History of cardiac radiofrequency ablation History of esophagogastroduodenoscopy (EGD) Hx of colonoscopy Status post ORIF of fracture of ankle S/P hip replacement Family History Mother HTN (hypertension) Diabetes mellitus Father Diabetes mellitus HTN (hypertension) Maternal Uncle Colon cancer Social History Household Members: Significant Other and Children Household Members Other:: Girlfriend and daughter Housing: Apartment Are you a primary tire care manager to a significant other at home: No Do you presently have visiting nurse or other home services: No Alcohol intake: former Patient Tobacco Use Status: Never used Tobacco e-Cigarette/Vaping Use: Never Used Second Hand Smoke Exposure: No Substance Use Type: Marijuana Advance Directives Date on File: 01/25/21 service: No Current occupational status: retired Current occupation: rt handed Cognitive needs: No Hearing needs: No Vision needs: No Office Procedures Cardiac Device Check Cardiac Device Check Details: Date of service- 07/10/2024; based on impedance data and physiological variables, there is no evidence of worsening congestive heart failure. [id number] Cardiac Device Interrogation, cardio physiologic monitor Procedure code (CPT) selection complete Assessment & Plan Assessment & Plan (1) ICD (implantable cardioverter-defibrillator) in place: Code(s): Z95.810 - Presence of automatic (implantable) cardiac defibrillator Category: Medical (2) NICM (nonischemic cardiomyopathy): Code(s): I42.8 - Other cardiomyopathies Category: Medical (3) (HFpEF) heart failure with preserved ejection fraction: Code(s): I50.30 - Unspecified diastolic (congestive) heart failure Category: Medical Plan x Coding Level of Care Code Procedure Only Diagnoses ICD (implantable cardioverter-defibrillator) in place Z95.810 NICM (nonischemic cardiomyopathy) I42.8 (HFpEF) heart failure with preserved ejection fraction I50.30 CPT Codes Cardiac Device Check - Cardiac Device 15: [id number] Cardiac Device Interrogation, cardio physiologic monitor ([id number])
== END ==
PROVIDERS: Visit Provider Internal Medicine
DX: I50.30 Unspecified diastolic (congestive) heart failure (principal); I42.8 Other cardiomyopathies; Z95.810 Presence of automatic (implantable) cardiac defibrillator
CPT/HCPCS: 93297

== ENCOUNTER 2024-07-23 07:12 | Day surgery (SDC) | payer MEDICARE, MEDICAID, SELFPAY ==
--- NOTE | 2024-07-22 11:39 | HO.ANESPROP2 ---
Documented by User: Tiffani Mujica NP 07/22/24 11:51 HPI - Anesthesia Eval Consult details Narrative: 59yo M for Colonoscopy Follows [facility] Cardiology for afib (eliquis, s/p ablation)and NICMP (EF 55%) ICD in situ (? hx VT, none on interrogation) ETOH abuse Anesthesia Pre-Procedure Meds Is the patient on any of the following meds?: SGLT2 Inhib PMFSH Active Problems Active Problems: All Active Problems Renita-Hernandez tear (Acute) Uncontrolled hypertension (Acute) Osteoarthritis of left ankle (Acute) Distal radius fracture, right (Acute) Distal radius fracture, left (Acute) Colon polyps (Acute) ICD (implantable cardioverter-defibrillator) in place (Acute) Ventricular tachycardia (Acute) NICM (nonischemic cardiomyopathy) (Acute) PAF (paroxysmal atrial fibrillation) (Acute) Thrombus of left atrial appendage (Acute) Alcoholic fatty liver (Acute) FARHEEN on CPAP (Acute) Alcohol abuse (Acute) HTN (hypertension) (Acute) (HFpEF) heart failure with preserved ejection fraction (Acute) Past Medical History Medical History Anemia Acute exacerbation of CHF (congestive heart failure) Morbid obesity Gastrointestinal bleeding History of cardioversion FARHEEN on CPAP Alcohol abuse HTN (hypertension) (HFpEF) heart failure with preserved ejection fraction Family History Family History Mother HTN (hypertension) Diabetes mellitus Father Diabetes mellitus HTN (hypertension) Maternal Uncle Colon cancer Family history of problems with anesthesia: No Surgical History Surgical History History of cardiac radiofrequency ablation History of esophagogastroduodenoscopy (EGD) Hx of colonoscopy Status post ORIF of fracture of ankle S/P hip replacement History of Problems with Anesthesia: No Social History Social History Household Members: Significant Other and Children Household Members Other:: Girlfriend and daughter Housing: Apartment Are you a primary wound care center consultant to a significant other at home: No Do you presently have visiting nurse or other home services: No Alcohol intake: former Patient Tobacco Use Status: Never used Tobacco e-Cigarette/Vaping Use: Never Used Second Hand Smoke Exposure: No Substance Use Type: Marijuana Substance Use Frequency: Daily Have you been hit, kicked, punched, or otherwise hurt by someone within the past year? If so, by whom?: No Are you DNR?: No Advance Directives: No Advance Directives Information Provided: Yes Advance Directives Date on File: 01/25/21 Recently lost weight without trying: No Nutrition Risks: No Nutritional Risk service: No Current occupational status: retired Current occupation: rt handed Cognitive needs: No Hearing needs: No Vision needs: No Meds Allergies Allergy/AdvReac Type Severity Reaction Status Date / Time No Known Allergies Allergy Verified 07/23/24 07:57 Home Medications ?Medication ?Instructions ?Recorded ?Confirmed ?Last Taken ?Type diphenhydramine 25 2 tab PO BEDTIME PRN Pain/Sleep 04/26/24 07/23/24 04/25/24 History mg-acetaminophen 500 mg tablet (Tylenol PM Extra Strength) Exam Pertinent Lab Results Pertinent Lab Results: Laboratory Tests 05/09/24 05:18 WBC 9.4 Hgb 9.8 L Hct 31.2 L Plt Count 205 Sodium 135 Potassium 3.7 Chloride 100 Carbon Dioxide 26 BUN 12 Creatinine 1.05 Narrative Narrative: EKG 04/2024 NSR @ 65 ECHO 04/2024 Conclusions: - 1. Low normal LV ejection fraction 50-55% with grade 3 diastolic dysfunction 2. Moderate biatrial enlargement 3. Moderately dilated right ventricle with preserved systolic function 4. Cardiac valvular Dopplers within normal limits 5. Severely elevated right ventricular systolic pressure with mildly elevated right atrial pressures 6. No gross pericardial effusion Interrogation 06/2024 on chart Assessment and Plan Assessment Anesthesia Assessment: Chart Reviewed Final Anesthetic Review Family History of Problems with Anesthesia: No History of Problems with Anesthesia: No Documented by User: Derian Campbell MD 07/23/24 08:37 PMFSH Past Medical History Medical History Anemia Acute exacerbation of CHF (congestive heart failure) Morbid obesity Gastrointestinal bleeding History of cardioversion FARHEEN on CPAP Alcohol abuse HTN (hypertension) (HFpEF) heart failure with preserved ejection fraction Family History Family History Mother HTN (hypertension) Diabetes mellitus Father Diabetes mellitus HTN (hypertension) Maternal Uncle Colon cancer Surgical History Surgical History History of cardiac radiofrequency ablation History of esophagogastroduodenoscopy (EGD) Hx of colonoscopy Status post ORIF of fracture of ankle S/P hip replacement Social History Social History Household Members: Significant Other and Children Household Members Other:: Girlfriend and daughter Housing: Apartment Are you a primary wound care center consultant to a significant other at home: No Do you presently have visiting nurse or other home services: No Alcohol intake: former Patient Tobacco Use Status: Never used Tobacco e-Cigarette/Vaping Use: Never Used Second Hand Smoke Exposure: No Substance Use Type: Marijuana Substance Use Frequency: Daily Have you been hit, kicked, punched, or otherwise hurt by someone within the past year? If so, by whom?: No Are you DNR?: No Advance Directives: No Advance Directives Information Provided: Yes Advance Directives Date on File: 01/25/21 Recently lost weight without trying: No Nutrition Risks: No Nutritional Risk service: No Current occupational status: retired Current occupation: rt handed Cognitive needs: No Hearing needs: No Vision needs: No Meds Allergies Allergy/AdvReac Type Severity Reaction Status Date / Time No Known Allergies Allergy Verified 07/23/24 07:57 Home Medications ?Medication ?Instructions ?Recorded ?Confirmed ?Last Taken ?Type diphenhydramine 25 2 tab PO BEDTIME PRN Pain/Sleep 04/26/24 07/23/24 04/25/24 History mg-acetaminophen 500 mg tablet (Tylenol PM Extra Strength) Exam Airway Mallampati Class: III TM Dist: >3cm Neck ROM: Full Assessment and Plan Assessment Anesthesia Assessment: Anesthesia Plan Discussed Final Anesthetic Review NPO: Yes ASA Class: III Final Preanesthetic Review: No Changes in Pt Med Stat, Meds/Allgs Chart Reviewed, Consent Obtained/Reviewed and Anes Risks/Benef Reviewed Patient Risk: Intermediate Procedure Risk: Low Anesthetic Plan Anesthetic Plan: TIVA Disposition: Standard PACU
--- OUTSIDE RECORDS SUMMARY | 2024-07-23 07:15 | XMS_ITS ---
Author Name [facility] Organization Unknown Results Test Name/Text Value Interpretation Date Range Source Calcium SerPl-mCnc 9.4mg/dL Normal [id number] 8.5 - 10 .1 [facility] BUN SerPl-mCnc 10mg/dL Normal [id number] 7 - 18 [facility] Anion Gap3 SerPl-sCnc 7mmol/L Normal [id number] 5 - 15 [facility] Creat SerPl-mCnc 0.89mg/dL Normal [id number] 0.7 - 1.3 [facility] HCO3 SerPl-sCnc 27mmol/L Normal [id number] 21 - 32 [facility] Chloride SerPl-sCnc 104mmol/L Normal [id number] 98 - 10 7 [facility] eGFRcr SerPlBld CKD-EPI 2020 60mL/min/1.73 m2 Normal [id number] - [facility] Potassium SerPl-sCnc 4.2mmol/L Normal [id number] 3.5 - 5.1 [facility] Glucose SerPl-mCnc 79mg/dL Normal [id number] 65 - 110 [facility] Sodium SerPl-sCnc 138mmol/L Normal [id number] 136 - 145 [facility] Calcium SerPl-mCnc 9.1mg/dL Normal [id number] 8.5 - 10 .1 [facility] BUN SerPl-mCnc 12mg/dL Normal [id number] 7 - 18 [facility] Anion Gap3 SerPl-sCnc 5mmol/L Normal [id number] 5 - 15 [facility] Creat SerPl-mCnc 1mg/dL Normal [id number] 0.7 - 1.3 [facility] HCO3 SerPl-sCnc 30mmol/L Normal [id number] 21 - 32 [facility] Chloride SerPl-sCnc 104mmol/L Normal [id number] 98 - 10 7 [facility] eGFRcr SerPlBld CKD-EPI 2020 60mL/min/1.73 m2 Normal [id number] - [facility] Potassium SerPl-sCnc 4.3mmol/L Normal [id number] 3.5 - 5.1 [facility] Glucose SerPl-mCnc 104mg/dL Normal [id number] 65 - 110 [facility] Sodium SerPl-sCnc 139mmol/L Normal [id number] 136 - 145 [facility] Magnesium SerPl-mCnc 1.9mg/dL Normal [id number] 1.6 - 2.6 [facility] Anion Gap3 SerPl-sCnc 6mmol/L Normal [id number] 5 - 15 [facility] Creat SerPl-mCnc 1.23mg/dL Normal [id number] 0.7 - 1.3 [facility] Albumin SerPl BCG-mCnc 3.3g/dL Below low normal [id number] 3.4 - 5 [facility] eGFRcr SerPlBld CKD-EPI 2020 60mL/min/1.73 m2 Normal [id number] - [facility] ALT SerPl w/o P-5'-P-cCnc 32U/L Normal [id number] 16 - 61 [facility] Potassium SerPl-sCnc 3.8mmol/L Normal [id number] 3.5 - 5.1 [facility] Bilirub SerPl-mCnc 0.8mg/dL Normal [id number] - 1 [facility] Calcium SerPl-mCnc 8.8mg/dL Normal [id number] 8.5 - 10 .1 [facility] BUN SerPl-mCnc 13mg/dL Normal [id number] 7 - 18 [facility] ALP SerPl-cCnc 71U/L Normal [id number] 45 - 117 [facility] HCO3 SerPl-sCnc 28mmol/L Normal [id number] 21 - 32 [facility] Chloride SerPl-sCnc 104mmol/L Normal [id number] 98 - 10 7 [facility] AST SerPl w P-5'-P-cCnc 51U/L Above high normal [id number] 15 - 37 [facility] Globulin Plas-mCnc 3.5g/dL Normal [id number] 2.5 - 5 [facility] Prot SerPl-mCnc 6.8g/dL Normal [id number] 6.4 - 8.2 [facility] Sodium SerPl-sCnc 138mmol/L Normal [id number] 136 - 145 [facility] Glucose SerPl-mCnc 83mg/dL Normal [id number] 65 - 110 [facility] Phosphate SerPl-mCnc 3.3mg/dL Normal [id number] 2.5 - 4.9 [facility] Magnesium SerPl-mCnc 2.2mg/dL Normal [id number] 1.6 - 2.6 [facility] Monocytes # Bld Auto 1.89k7609/uL Above high normal [id number] 0 - 1 [facility] BKR WAM BASOPHIL ABSOLUTE COUNT. 0.52n2345/uL Normal [id number] 0 - 1 [facility] nRBC/100 WBC Bld Auto-Rto 0% Normal [id number] 0 - 1 [facility] Eosinophil # Bld Auto 0.79a0537/uL Normal [id number] 0 - 1 [facility] MCHC RBC Auto-mCnc 33.4g/dL Normal [id number] 31 - 36 [facility] Monocytes/leuk NFr Bld Auto 11.9% Normal [id number] 4 - 12 [facility] WBC # Bld Auto 8.5r2777/uL Normal [id number] 4 - 11 [facility] Hct VFr Bld Auto 38.3% Below low normal [id number] 38. 5 - 50 [facility] RDW RBC Auto-Rto 13% Normal [id number] 11 - 15 [facility] PMV Bld Auto 10.9fL Normal [id number] 8 - 12 [facility] Eosinophil/leuk NFr Bld Auto 0.2% Normal [id number] 0 - 5 [facility] MCH RBC Qn Auto 31.2pg Normal [id number] 27 - 33 [facility] Basophils/leuk NFr Bld Auto 0.9% Normal [id number] 0 - 1.4 [facility] Lymphocytes # Bld Auto 2.45f4767/uL Normal [id number] 0.6 - 3.7 [facility] RBC # Bld Auto 4.1M/uL Normal [id number] 4 - 6 [facility] Neutrophils/leuk NFr Bld Auto 61.7% Normal [id number] 39 - 72 [facility] Imm Granulocytes # Bld Auto 0.11u5407/uL Normal [id number] 0 - 0.3 [facility] BKR WAM ABSOLUTE NEUTROPHIL COUNT. 5.23y6157/uL Normal [id number] 2 - 7.6 [facility] Platelet # Bld Auto 053w1492/uL Normal [id number] 150 - 420 [facility] MCV RBC Auto 93.4fL Normal [id number] 80 - 100 [facility] Lymphocytes/leuk NFr Bld Auto 25% Normal [id number] 17 - 50 [facility] Imm Granulocytes/leuk NFr Bld Auto 0.3% Normal [id number] 0 - 1 [facility] Hgb Bld-mCnc 12.8g/dL Below low normal [id number] 13.2 - 17.1 [facility] Troponin T SerPl HS-mCnc 52ng/L Above high normal [id number] - [facility] BKR TROPONIN T HS 1 HOUR DELTA FROM 0 HOUR ON 3HR 17ng/L Normal [id number] [facility] BKR TROPONIN T HS 3 HOUR DELTA FROM 0 HOUR 33ng/L Normal [id number] [facility] Troponin T SerPl HS-mCnc 36ng/L Above high normal [id number] - [facility] BKR TROPONIN T HS 1 HOUR DELTA FROM 0 HOUR 17ng/L Normal [id number] [facility] Magnesium SerPl-mCnc 1.7mg/dL Normal [id number] 1.6 - 2.6 [facility] Calcium SerPl-mCnc 9.6mg/dL Normal [id number] 8.5 - 10 .1 [facility] BUN SerPl-mCnc 13mg/dL Normal [id number] 7 - 18 [facility] Anion Gap3 SerPl-sCnc 14mmol/L Normal [id number] 5 - 15 [facility] Creat SerPl-mCnc 1.85mg/dL Above high normal [id number] 0. 7 - 1.3 [facility] HCO3 SerPl-sCnc 20mmol/L Below low normal [id number] 21 - 32 [facility] Chloride SerPl-sCnc 102mmol/L Normal [id number] 98 - 10 7 [facility] eGFRcr SerPlBld CKD-EPI 1 42mL/min/1.73 m2 Below low normal [id number] - [facility] Potassium SerPl-sCnc 3.3mmol/L Below low normal [id number] 3.5 - 5.1 [facility] Glucose SerPl-mCnc 117mg/dL Above high normal [id number] 65 - 110 [facility] Sodium SerPl-sCnc 136mmol/L Normal [id number] 136 - 145 [facility] Troponin T SerPl HS-mCnc 19ng/L Above high normal [id number] - [facility] MCH RBC Qn Auto 31pg Normal [id number] 27 - 33 [facility] RBC # Bld Auto 4.65M/uL Normal [id number] 4 - 6 [facility] Lymphocytes # Bld Auto 2.9e1342/uL Normal [id number] 0.6 - 3.7 [facility] Neutrophils/leuk NFr Bld Auto 63.6% Normal [id number] 39 - 72 [facility] Lymphocytes/leuk NFr Bld Auto 26.4% Normal [id number] 17 - 50 [facility] PMV Bld Auto 11.1fL Normal [id number] 8 - 12 [facility] BKR WAM BASOPHIL ABSOLUTE COUNT. 0.10b1736/uL Normal [id number] 0 - 1 [facility] Imm Granulocytes # Bld Auto 0.95r2587/uL Normal [id number] 0 - 0.3 [facility] Monocytes/leuk NFr Bld Auto 8.8% Normal [id number] 4 - 12 [facility] Basophils/leuk NFr Bld Auto 0.7% Normal [id number] 0 - 1.4 [facility] nRBC/100 WBC Bld Auto-Rto 0% Normal [id number] 0 - 1 [facility] MCHC RBC Auto-mCnc 32.6g/dL Normal [id number] 31 - 36 [facility] Monocytes # Bld Auto 0.7m2065/uL Normal [id number] 0 - 1 [facility] BKR WAM ABSOLUTE NEUTROPHIL COUNT. 5.95u0844/uL Normal [id number] 2 - 7.6 [facility] Hct VFr Bld Auto 44.2% Normal [id number] 38.5 - 50 [facility] Eosinophil/leuk NFr Bld Auto 0.2% Normal [id number] 0 - 5 [facility] Platelet # Bld Auto 463i5516/uL Normal [id number] 150 - 420 [facility] RDW RBC Auto-Rto 13.1% Normal [id number] 11 - 15 [facility] Imm Granulocytes/leuk NFr Bld Auto 0.3% Normal [id number] 0 - 1 [facility] Eosinophil # Bld Auto 0.69r0798/uL Normal [id number] 0 - 1 [facility] Hgb Bld-mCnc 14.4g/dL Normal [id number] 13.2 - 17.1 [facility] MCV RBC Auto 95.1fL Normal [id number] 80 - 100 [facility] WBC # Bld Auto 9.6i0234/uL Normal [id number] 4 - 11 [facility] History of Medication Use Medication Directions Dispensed Refills Start Date End Date Status LORazepam (ATIVAN) tablet 2 mg 2 mg, Oral, EVERY 1 HOUR PRN, other, CIWA > 15, Starting on Mon02/22/23 at 1447For symptom triggered doing regimen, CIWA Score > 15 administer medication and reassess CIWA in 1 hours; If after 3 administration of medication and subsequent 1 hour reassessment; contact provider to evaluate patient for 02/26/20 aborted amiodarone (PACERONE) 400 mg tablet Take 1 tablet (400 mg total) by mouth 2 (two) times daily for 7 days, THEN 0.5 tablets (200 mg total) 2 (two) times daily for 7 days, THEN 0.5 tablets (200 mg total) daily. 02/26/20 active lisinopriL (PRINIVIL,ZESTRIL) tablet 10 mg 10 mg, Oral, Daily, First dose on Mon02/19/23 at 1415Hold for SBP < 90 mm Hg??Common Side Effects: Hypotension, dizziness. 02/26/20 aborted thiamine (VITAMIN B1) injection 200 mg [Order 1 Start] Name: thiamine (VITAMIN B1) injection 200 mg Signed Summary: 200 mg, IV Push, EVERY 8 HOURS, First dose on Mon02/22/23 at 0800, For 9 dosesIV push: Give undiluted over 1-2 minutesPharmacist will implement Pharmacist IV to Enteral Conversion Protocol unless otherwise specified: Imple 02/26/20 aborted sodium chloride 0.9% infusion 1 mL/kg/hr ? 126 kg (126 mL/hr), Intravenous, CONTINUOUS, Starting on Mon02/21/23 at 0000Max rate 150 ml/hr. IV fluids may not be appropriate in patients with acute heart failure 02/26/20 aborted amiodarone (NEXTERONE) 150 MG in dextrose 5% 100 mL IVPB 150 mg, Intravenous, Administer over 10 Minutes, ONCE, On Mon02/18/23 at 2245, For 1 doseAdminister over 10 minutes.??Per IV guidelines: 0.2 - 0.22 micron in-line filter required. 02/26/20 completed metoprolol succinate XL (TOPROL-XL) 24 hr tablet 125 mg 125 mg, Oral, Daily, First dose on Mon02/19/23 at 1030Hold for SBP < 90 mm Hg or HR < 50 BPM??Common Side Effects: Fatigue, dizziness, hypotension, bradycardia. 02/26/20 aborted lisinopriL (PRINIVIL,ZESTRIL) tablet 20 mg 20 mg, Oral, Daily, First dose (after last modification) on Mon02/21/23 at 0900Hold for SBP < 90 mm Hg??Common Side Effects: Hypotension, dizziness. 02/26/20 aborted haloperidol lactate (HALDOL) injection 4 mg 4 mg, IV Push, ONCE, On Mon02/22/23 at 0515, For 1 doseIf ordered IV Push, administer undiluted at a rate of 5 mg over 1 minute. RECOMMENDED monitoring for doses greater than 5 mg includes: baseline HR and BP, repeated Q15 minutes x 1. No HR or BP monitoring recommended for doses 5 mg or less. RECOM 02/26/20 completed metoprolol succinate XL (TOPROL-XL) 24 hr tablet 75 mg 75 mg, Oral, Daily, First dose on Mon02/21/23 at 0900, For 1 doseHold for SBP < 90 mm Hg or HR < 50 BPM??Common Side Effects: Fatigue, dizziness, hypotension, bradycardia. 02/26/20 active amiodarone (NEXTERONE) 360MG in dextrose 5% 200 ML (1.8 MG/ML) infusion 200 mL, at 33.3 mL/hr, Intravenous, CONTINUOUS, Starting on 02/18/23 at 2245, For 6 hoursInfusion Rate:?1 mg/min x 6 hours ?DO NOT TITRATE?Use in-line filter.?Call MD:??Any nursing concerns??HR < 50 or > 130 BPM??SBP < 90 mm Hg??New onset tachyarrhythmia??Irr itant; Administer using 0.2 or 0.22 chon 02/26/20 completed hydroCHLOROthiazide (HYDRODIURIL) tablet 25 mg 25 mg, Oral, ONCE, On 02/20/23 at 2345, For 1 doseHold for SBP < 90 mm Hg 02/26/20 active magnesium sulfate in water 2 gram/50 mL (4 %) (IVPB) 2 g 2 g, Intravenous, Administer over 1 Hours, ONCE, On 02/19/23 at 0315, For 1 doseMagnesium Level 1.4-1.6 mg/dl AND CrCl >/= 30 mL/min: Replete with Magnesium sulfate 2g IV x 1 dose. 02/26/20 completed LORazepam (ATIVAN) injection 2 mg 2 mg, IV Push, EVERY 2 HOURS PRN, other, CIWA 8-15, Starting on Mon02/22/23 at 0238For symptom triggered doing regimen, CIWA score 8-15, administer medication and reassess CIWA in 2 hours. ??Hold dose for decreased level of consciousness, ataxia, slurred speech, and nystagmus.??If ordered IV Push: Dil 02/26/20 aborted sodium chloride 0.9% infusion 1 mL/kg/hr ? 126 kg (126 mL/hr), Intravenous, CONTINUOUS, Starting on Mon02/21/23 at 0000Max rate 150 ml/hr. IV fluids may not be appropriate in patients with acute heart failure 02/26/20 aborted amiodarone (NEXTERONE) 150 MG in dextrose 5% 100 mL IVPB 150 mg, Intravenous, Administer over 10 Minutes, ONCE, On 02/18/23 at 2245, For 1 doseAdminister over 10 minutes.??Per IV guidelines: 0.2 - 0.22 micron in-line filter required. 02/26/20 completed ondansetron (ZOFRAN-ODT) disintegrating tablet 4 mg 4 mg, Oral, EVERY 6 HOURS PRN, nausea or vomiting, Starting on Mon02/19/23 at 0136First line therapy.?Common Side Effects: Lightheaded, stomach upset, headache. 02/26/20 aborted metoprolol succinate XL (TOPROL-XL) 24 hr tablet 200 mg 200 mg, Oral, Daily, First dose (after last modification) on Mon02/22/23 at 0900Hold for SBP < 90 mm Hg or HR < 50 BPM??Common Side Effects: Fatigue, dizziness, hypotension, bradycardia. 02/26/20 aborted Sulfur hexafluoride Microspheres (LUMASON) Intravenous suspension 4 mL, Intravenous, IMG ONCE PRN, other, Starting on Mon02/19/23 at 0751, For 1 dose, Procedural ImagingAdminister 2 ml over 10 seconds and an additional 2 mL as needed. NOT to exceed 4 mL. ??IV line flushed with 10 mL of NS.Reason for use (RFU): Visualization of the endocardium 02/26/20 completed thiamine (VITAMIN B1) 100 mg tablet Take 1 tablet (100 mg total) by mouth daily. 02/26/20 active sodium chloride 0.9% infusion 500 mL/hr, Intravenous, CONTINUOUS, Starting on 02/20/23 at 1615, For 4 hours, Post-Procedure 02/26/20 completed amiodarone (PACERONE) tablet 400 mg 400 mg, Oral, 2 Times Daily Scheduled, First dose on Mon02/22/23 at 0900, For 7 days 02/26/20 aborted hydroCHLOROthiazide (HYDRODIURIL) tablet 12.5 mg 12.5 mg, Oral, Daily, First dose on Mon02/21/23 at 0900Hold for SBP < 90 mm Hg 02/26/20 aborted folic acid (FOLVITE) 1 mg tablet Take 1 tablet (1 mg total) by mouth daily. 02/26/20 active potassium chloride SA (K-DUR,KLOR-CON M) 24 hr tablet 40 mEq 40 mEq, Oral, EVERY 2 HOURS PRN, Potassium Replacement Protocol, Starting on Mon02/19/23 at 0306- Potassium less than 3.4 mEq/L: Give KCL 40 mEq PO tabs x 2 doses each 2 hours apart. ??- Potassium 3.4 to 3.5 mEq/L: Give KCL 40 mEq PO x 1 dose.??Exclusion Criteria: Do NOT utilize replacement protocol i 02/26/20 aborted NIFEdipine XL (PROCARDIA-XL) 24 hr tablet 30 mg 30 mg, Oral, Daily, First dose on Mon02/21/23 at 0900 02/26/20 aborted metoprolol succinate XL (TOPROL-XL) 25 mg 24 hr tablet Take 1 tablet (25 mg total) by mouth daily. Take with or immediately following a meal. 02/26/20 aborted flecainide (TAMBOCOR) 100 mg tablet Take 1 tablet (100 mg total) by mouth every 12 (twelve) hours. 02/26/20 active bisacodyL (DULCOLAX) EC tablet 5 mg 5 mg, Oral, DAILY PRN, constipation, Constipation, Starting on Mon02/19/23 at 0136Give only if inadequate response to first line therapy after 24 hours. Please use first?line therapy before going to second line therapy.??Common Side Effects: Diarrhea, discomfort, cramps. 02/26/20 aborted hydrALAZINE (APRESOLINE) injection/vial 10 mg 10 mg, IV Push, ONCE, On Mon02/21/23 at 0315, For 1 doseHold for SBP < 90 mm Hg.?If ordered IV Push, administer undiluted at a rate of 5 mg over 1 minute. RECOMMENDED monitoring includes HR and BP baseline and Q15 minutes x 1. 02/26/20 completed ceFAZolin (ANCEF) injection 1 g 1 g, IV Push, EVERY 8 HOURS, First dose on Mon02/21/23 at 2200, For 2 dosesThis drug may be automatically dose-adjusted by the Pharmacist according to the patient? s renal function as approved by the [employer] ([employer]).??Irritant; Common Side Effects: Stomach upset, skin rash. 02/26/20 completed sodium chloride 0.9 % flush 3 mL 3 mL, IV Push, Every 8 Hours Scheduled, First dose on Mon02/19/23 at 0600For PIV lock flush only. 02/26/20 aborted metoprolol succinate XL (TOPROL-XL) 200 mg 24 hr tablet Take 1 tablet (200 mg total) by mouth every 12 (twelve) hours for 7 days, THEN 1 tablet (200 mg total) every 12 (twelve) hours for 7 days, THEN 1 tablet (200 mg total) daily. Take with or immediately following a meal.. 02/26/20 active amiodarone (NEXTERONE) 360MG in dextrose 5% 200 ML (1.8 MG/ML) infusion 200 mL, at 16.7 mL/hr, Intravenous, CONTINUOUS, Starting on Mon02/19/23 at 0445Infusion Rate:?0.5 mg/min bag starts immediately after the 6 hour infusion at 1 mg/min completes. ?DO NOT TITRATE?Use in-line filter.?Call MD:??Any nursing concerns??HR < 50 or > 130 BPM??SBP < 90 mm Hg??New onset tachyar 02/26/20 aborted metoprolol succinate XL (TOPROL-XL) 100 mg 24 hr tablet Take 1 tablet (100 mg total) by mouth daily. Take with or immediately following a meal. 02/26/20 aborted apixaban (ELIQUIS) tablet 5 mg 5 mg, Oral, Every 12 Hours Scheduled, First dose on Mon02/22/23 at 0900For ORAL administration, may crush tablets and suspend in water or apple juice, or mix with applesauce.?For GASTRIC TUBE administration, crush tablet and suspend in 60 mL of water. Suspension should be immediately delivered via 02/26/20 23 aborted Problems Problem Status Onset Date Problem Type Date of Resoluti on Source Ventricular tachycardia active 2023-02-19 [facility] Atrial fibrillation, unspecified type (HC Code) (HC CODE) active 2023-02-19 [facility] Essential hypertension active 2023-02-20 [facility] Hypokalemia active [facility] ETOH abuse active 2023-02-22 [facility] Syncope, unspecified syncope type active [facility]
--- NOTE | 2024-07-23 07:35 | MHC.SHP ---
Pre-Procedural Eval Section A - 24 Hr Update-Section A only Date of Service: 07/23/24 The patient is an INPATIENT: No The patient has been examined within 24 hours of the surgical procedure. The History & Physical has been completed within 30 days and I have reviewed it.: No Section B - Complete if H&P > 30 days Chief Complaint: anemia, abdominal pain, hx of GIB Relevant Family History (Specify if Yes): No Relevant Social History: None Present Medications: see Short Stay Collaborative assessment Medical History: Significant History (History of cardioversion FARHEEN on CPAP Alcohol abuse HTN (hypertension) (HFpEF) heart failure with preserved ejection fraction) History of Previous Operations: Relevant previous surgery/procedure and date(s) (History of esophagogastroduodenoscopy (EGD) Hx of colonoscopy Status post ORIF of fracture of ankle S/P hip replacement) Allergies: Allergies Allergy/AdvReac Type Severity Reaction Status Date / Time No Known Allergies Allergy Verified 05/27/24 10:07 Review of Systems Sugical H&P ROS: Negative: Constitution, Cardiovascular, Respiratory and Gastrointestinal Exam Surgical H&P Exam: Normal: Heart, Normal: Lungs, Normal: Extremities and Normal: Abdomen Plan Diagnosis/Plan: Change (Proceed with colonoscopy) I have reviewed the history and physical and performed a pertinent physical examination on my patient. No changes have occurred unless specified. Time Spent With Patient Time: Total time managing care of this patient today ____ minutes.
[2024-07-23] MEDS: Lactated Ringers 1,000 ML 100 ML IVCONT (07:40)
[2024-07-23 07:51] LABS: Glucose, Whole Blood 112 mg/dL (60-115)
[2024-07-23 07:54] VITALS: BP 105/71; PULSE 73; RESP 18; TEMP 36.7; O2SAT 98
[2024-07-23 07:55] VITALS: BMI 34.1
--- NOTE | 2024-07-23 09:07 | P.OPN-COLO_ITS ---
Colonoscopy Operative Note Operative Note Date of Service: 07/23/24 Narrative: COLONOSCOPY TILL CECUM WITH BIOPSIES AND SNARE POLYPECTOMY Pre-op diagnosis: Surveillance for colon polyps, anemia. Post-op diagnosis:? Colon polyps, Diverticulosis, hemorrhoids Endoscopist:? Lilly Le MD Anesthesia:?MAC Consent: Indications for the procedure and potential complications of bleeding, perforation, reaction to medications and missed diagnosis were discussed with the patient and informed consent was obtained. Instrument: Olympus CF H 190 L variable stiffness adult colonoscope Monitoring: Vital signs and clinical assessment, intermittent blood pressure monitoring, continuous EKG monitoring, Pulse oximetry and Carbon Dioxide monitoring were done throughout the procedure. Please see anesthesia flowsheet. Colon withdrawl time was 20 minutes. Procedure: The patient was placed in the left lateral decubitis position and pre-procedure medications were administered. After a digital rectal examination of the ano-rectum, the video colonoscope was inserted into the rectum and advanced through the colon to the cecum. The colonoscope was slowly withdrawn in a retrograde panoramic fashion and the colon mucosa was carefully examined including a retroflexed view of the rectum. Findings and interventions are described below. Procedure Difficulty: without difficulty Findings: Terminal Ileum: Not evaluated Cecum: Normal Ascending Colon: Moderate diverticulosis scattered throughout the colon Transverse Colon: Moderate diverticulosis scattered throughout the colon Descending Colon: Moderate diverticulosis scattered throughout the colon Sigmoid Colon: Two 3-5 mm diminutive appearing polyps - removed with a cold biopsy. Moderate diverticulosis Rectum: A 7-8 mm sessile polyp in the distal rectum - removed with a cold snare. Ano-rectum: Moderate internal hemorrhoids Colon preparation: Good after copious irrigation. [place] Bowel Preparation Scale Right colon; 2 Transverse colon: 2 Left colon; 2 (0 = Unprepared colon segment with mucosa not seen due to solid stool that cannot be cleared. 1 = Portion of mucosa of the colon segment seen, but other areas of the colon segment not well seen due to staining, residual stool and/or opaque liquid. 2 = Minor amount of residual staining, small fragments of stool and/or opaque liquid, but mucosa of colon segment seen well. 3 = Entire mucosa of colon segment seen well with no residual staining, small fragments of stool or opaque liquid) Impression and Post Procedure Diagnosis: Colonoscopy Findings: Three small polyps were removed Moderate diverticulosis seen in the entire colon Moderate hemorrhoids on retroflexed exam. Plan: Pt has a FU appointment on 08/26/[address] Rahman Repeat Colonoscopy in 3-5 years if polyps are adenomatous and due to history of colon polyps (Dulcolax 10 mg daily starting 3 days prior to next colonoscopy appointment) Above findings were reviewed with the patient and relevant handouts were given and the discharge area. BIOPSIES SHOWED: A. Colon, sigmoid, polypectomies: Hyperplastic mucosal polyps. B. Rectum, polypectomy: Tubular adenoma; negative for high-grade dysplasia or carcinoma Letter sent advising repeat colonoscopy in 5 years. Patient was placed on the colonoscopy recall list.
[2024-07-23 09:13] VITALS: BP 92/41; PULSE 65; RESP 18; TEMP 36.1; O2SAT 94
[2024-07-23 09:28] VITALS: BP 99/58; PULSE 68; RESP 16; O2SAT 99
[2024-07-23 09:43] VITALS: BP 130/79; PULSE 56; RESP 16; TEMP 36.3; O2SAT 99
== END 2024-07-23 10:22 | disposition home or self-care (01) ==
PROVIDERS: PCP Nurse Practitioner Family; Visit Provider Internal Medicine Gastroenterology
PROC: 0DJD8ZZ Inspection of Lower Intestinal Tract, Via Natural or Artificial Opening Endoscopic (ICD-10-PCS; CPT 45378; principal; 2024-07-23 08:20)
DX: D64.9 Anemia, unspecified (principal); Z86.0101 Personal history of adenomatous and serrated colon polyps; D12.8 Benign neoplasm of rectum; K63.5 Polyp of colon; K57.30 Diverticulosis of large intestine without perforation or abscess without bleeding; K64.8 Other hemorrhoids; R10.9 Unspecified abdominal pain; K59.00 Constipation, unspecified; K76.0 Fatty (change of) liver, not elsewhere classified; G47.33 Obstructive sleep apnea (adult) (pediatric); I48.21 Permanent atrial fibrillation; Z79.01 Long term (current) use of anticoagulants; I11.0 Hypertensive heart disease with heart failure; I50.30 Unspecified diastolic (congestive) heart failure; I47.20 Ventricular tachycardia, unspecified; I42.8 Other cardiomyopathies; Z95.810 Presence of automatic (implantable) cardiac defibrillator; E66.01 Morbid (severe) obesity due to excess calories; Z68.32 Body mass index [BMI] 32.0-32.9, adult; Z83.3 Family history of diabetes mellitus; Z79.899 Other long term (current) drug therapy; Z99.89 Dependence on other enabling machines and devices; F10.10 Alcohol abuse, uncomplicated; Z98.890 Other specified postprocedural states
CPT/HCPCS: 45385; 45380; 82947; 88305; J2003; J2704

== ENCOUNTER → 2024-07-23 07:12 | Outpatient (BNV) | payer MEDICARE, MEDICAID, SELFPAY | PROVIDERS: PCP Nurse Practitioner Family; Visit Provider Internal Medicine Gastroenterology | DX: Z12.11 Encounter for screening for malignant neoplasm of colon (principal); Z86.0100 Personal history of colon polyps, unspecified; D12.8 Benign neoplasm of rectum; K63.5 Polyp of colon; K57.90 Diverticulosis of intestine, part unspecified, without perforation or abscess without bleeding; K64.8 Other hemorrhoids | CPT/HCPCS: 45380; 45385 ==

== ENCOUNTER 2024-08-02 15:24 | Inpatient (IN) | payer MEDICARE, MEDICAID, SELFPAY ==
--- NOTE | ~2024-08-02 | CT_ITS ---
CLINICAL HISTORY: LUQ, r o nec pancreatitis CT abdomen and pelvis with contrast Comparison: CT - CT ABDOMEN PELVIS W IV CON - 08/02/24 21:47 EST Findings: Once again there is streak artifact related to gastroduodenal artery embolization. The lung bases are clear. There is a cardiac device with a single lead in the right ventricle. Inflammatory changes are seen adjacent to the pancreas compatible with pancreatitis. There is no pancreatic ductal dilatation. There is a small left adrenal nodule unchanged. The rest of the solid organs are normal. No bowel obstruction, pneumoperitoneum, or pneumatosis. Much of the mesenteric inflammatory changes previously noted particularly with regards to the omentum has resolved. There is colonic diverticulosis without evidence of diverticulitis. The bones are intact. The GI tract is otherwise unremarkable. IMPRESSION: Findings suggestive of acute pancreatitis. Other findings as above. This document has been electronically signed by: Selvin Russell MD on 08/02/2024 22:36:21
[2024-08-02 15:33] VITALS: BP 148/96; PULSE 62; RESP 20; TEMP 35.6; O2SAT 100; BMI 33.4
--- NOTE | 2024-08-02 15:33 | ED.GENADULT ---
HPI - General Adult General Chief complaint: Abdominal Pain Stated complaint: GI issues Time Seen by Provider: 08/02/24 19:25 Source: patient Limitations: no limitations History of Present Illness ED Provider: Taryn Ramírez PA-C HPI narrative: 59-year-old male with a history of alcohol use disorder, prior Renita-Hernandez tear, nonischemic cardiomyopathy, V-tach now status post ICD, paroxysmal AFib, fatty liver disease, hypertension, heart failure with a preserved ejection fraction, presents with the abdominal pain since this morning. Pain is diffuse but most focal over upper to upper left abdomen. Unable to describe the nature of his discomfort. Associated multiple episodes of bilious vomiting at home. Denies fever or diarrhea. Denies sick contacts with same symptoms. Denies recent cough or cold symptoms. Patient states he has not drank alcohol in several days. He has had alcohol withdrawal in the past without seizure activity. Related Data Home Medications ?Medication ?Instructions ?Recorded ?Confirmed diphenhydramine 25 2 tab PO BEDTIME PRN Pain/Sleep 04/26/24 07/23/24 mg-acetaminophen 500 mg tablet (Tylenol PM Extra Strength) Previous Rx's ?Medication ?Instructions ?Recorded blood pressure monitor (Blood #1 ea 04/25/23 Pressure Kit) apixaban 5 mg tablet (Eliquis) 5 mg PO BID 90 days #180 tabs 12/04/23 amiodarone 200 mg tablet 200 mg PO DAILY #90 tabs 12/26/23 metoprolol succinate 100 mg 100 mg PO DAILY #90 tabs 02/15/24 tablet,extended release 24 hr (Toprol XL) miscellaneous medical supply #1 ea 03/06/24 (Blood Pressure Cuff) empagliflozin 10 mg tablet 10 mg PO DAILY #90 tabs 04/27/24 (Jardiance) furosemide 40 mg tablet 40 mg PO DAILY #30 tabs 04/27/24 spironolactone 25 mg tablet 25 mg PO DAILY #90 tabs 04/27/24 valsartan 160 mg tablet 160 mg PO BID #180 tabs 04/27/24 omeprazole 20 mg capsule,delayed 20 mg PO DAILY@0630 #90 caps 05/09/24 release oxycodone 5 mg tablet 5 mg PO Q4H PRN Pain, 05/09/24 Moderate(Pain Scale 4-6) #15 tabs amlodipine 5 mg tablet 5 mg PO DAILY #90 tabs 07/22/24 Allergies Allergy/AdvReac Type Severity Reaction Status Date / Time No Known Allergies Allergy Verified 08/02/24 15:36 Review of Systems Review of Systems: Yes all other systems are reviewed and are negative Constitutional: Constitutional: Denies fatigue and Denies fever(s) Cardiovascular: Cardiovascular: Denies chest pain and Denies dyspnea Respiratory: Respiratory: Denies cough and Denies dyspnea Gastrointestinal: Gastrointestinal: Reports abdominal pain, Denies diarrhea, Reports nausea and Reports vomiting Endocrine: Endocrine: Denies fatigue [facility] Past Medical History Attestation statement: The following information was validated with the patient. Medical History Anemia Acute exacerbation of CHF (congestive heart failure) Morbid obesity Gastrointestinal bleeding History of cardioversion FARHEEN on CPAP Alcohol abuse HTN (hypertension) (HFpEF) heart failure with preserved ejection fraction Surgical History History of cardiac radiofrequency ablation History of esophagogastroduodenoscopy (EGD) Hx of colonoscopy Status post ORIF of fracture of ankle S/P hip replacement Family History Family History Mother HTN (hypertension) Diabetes mellitus Father Diabetes mellitus HTN (hypertension) Maternal Uncle Colon cancer Social History Social History Household Members: Significant Other and Children Household Members Other:: Girlfriend and daughter Housing: Apartment Are you a primary care technician to a significant other at home: No Do you presently have visiting nurse or other home services: No Alcohol intake: former Patient Tobacco Use Status: Never used Tobacco e-Cigarette/Vaping Use: Never Used Second Hand Smoke Exposure: No Substance Use Type: Marijuana Advance Directives: Yes Advance Directives on File: Yes Advance Directives Date on File: 01/25/21 service: No Current occupational status: retired Current occupation: rt handed Cognitive needs: No Hearing needs: No Vision needs: No Physical Exam ED Vital Signs: Vital Signs - 24 hr 08/02/24 15:33 Temperature 96.0 F L Pulse Rate 62 Respiratory Rate 20 Blood Pressure 148/96 H Pulse Oximetry 100 Oxygen Delivery Method Room Air BMI result Body Mass Index 33.4 Const Other: Alert, ill in appearance appears uncomfortable Orientation/consciousness: patient oriented x3 Resp Effort & Inspection: normal respiratory effort Cardio Other: Normal peripheral perfusion GI Other: Abdomen is soft and some regions, moderate tenderness across upper abdomen with moderate involuntary guarding, most prominent over left upper quadrant, no peritoneal signs Skin Other: Warm dry no rash Neuro General: patient oriented x3, no focal motor deficits and CN's II-XI intact bilaterally Psych Other: Cooperative Course Course Course Narrative: RME, this is a rapid medical exam performed by Hiren Galvan please refer to primary provider for complete H&P- 59-year-old male with past medical history significant for atrial fibrillation on Eliquis, heart failure, hypertension, ICD implantation, history of GI bleed presents for evaluation abdominal pain. Patient reports twice in the past he has had GI bleed requiring transfer to [facility] as he had a previous coiling procedure performed there. This most recently happened in April. He denies any vomiting of coffee-ground emesis or black or bloody stool but reports he has abdominal pain similar to when he had GI bleeds in the past. Vital signs are stable in triage. Plan for labs including a type and screen. We will defer any advanced imaging to primary ER provider Reevaluation(s) Reevaluation #1: Reassess patient after I had a CT scan, he is still guarding on my exam, I do not foresee him doing well at home, we will be admitting Time: 23:24 Medications Administered Discontinued Medications Generic Name Dose Route Start Last Admin Trade Name Freq PRN Reason Stop Dose Admin Sodium Chloride 1,000 mls @ 999 mls/hr 08/02/24 19:45 08/02/24 19:45 Ns IV 08/02/24 20:45 999 mls/hr .Q1H1M TIGIST Administration Lorazepam 1 mg 08/02/24 19:31 08/02/24 19:44 Lorazepam 2 Mg/Ml Vial IVPUSH 08/02/24 19:32 1 mg ONCE ONE Administration Morphine Sulfate 4 mg 08/02/24 19:31 08/02/24 19:44 Morphine Sulfate 4 Mg/Ml Cartridge IVPUSH 08/02/24 19:32 4 mg ONCE ONE Administration Protocol Medical Decision Making Medical Decision Making MDM Narrative: 59-year-old male with a history of alcohol use disorder, prior Renita-Hernandez tear, nonischemic cardiomyopathy, V-tach now status post ICD, paroxysmal AFib, fatty liver disease, hypertension, heart failure with a preserved ejection fraction, presents with the abdominal pain since this morning. Pain is diffuse but most focal over upper to upper left abdomen. Unable to describe the nature of his discomfort. Associated multiple episodes of bilious vomiting at home. Denies fever or diarrhea. Denies sick contacts with same symptoms. Denies recent cough or cold symptoms. Patient states he has not drank alcohol in several days. He has had alcohol withdrawal in the past without seizure activity. Problem: Alcohol abuse, prior Renita-Hernandez tear, cardiac history History: Per patient I have considered the following differential diagnoses: Cholecystitis, biliary colic, alcoholic gastritis, pancreatitis , viral gastroenteritis Plan: Screening labs including LFTs and lipase were already obtained from triage. Patient has clinical pancreatitis. Given exam findings I will obtain a CT scan to rule out necrotizing pancreatitis. Doubtful given he is hemodynamically stable and afebrile. We will be giving morphine Ativan and IV fluid. I have independently reviewed the following tests: Labs: No overall leukocytosis but has left shift, stable anemia, no electrolyte abnormalities, lipase 804, LFTs overall unremarkable, CT abdomen and pelvis:Comparison: CT - CT ABDOMEN PELVIS W IV CON - 08/02/24 21:47 EST Findings: Once again there is streak artifact related to gastroduodenal artery embolization. The lung bases are clear. There is a cardiac device with a single lead in the right ventricle. Inflammatory changes are seen adjacent to the pancreas compatible with pancreatitis. There is no pancreatic ductal dilatation. There is a small left adrenal nodule unchanged. The rest of the solid organs are normal. No bowel obstruction, pneumoperitoneum, or pneumatosis. Much of the mesenteric inflammatory changes previously noted particularly with regards to the omentum has resolved. There is colonic diverticulosis without evidence of diverticulitis. The bones are intact. The GI tract is otherwise unremarkable. IMPRESSION: Findings suggestive of acute pancreatitis. Other findings as above. This document has been electronically signed by: Selvin Russell MD on 08/02/2024 22:36:21 Lab Data 08/02/24 16:07 08/02/24 16:06 Labs: Lab Results 08/02/24 08/02/24 08/02/24 Range/Units 16:06 16:07 16:08 WBC 10.8 (4.8-10.8) X10*3/uL RBC 4.75 (4.60-5.80) X10*6/uL Hgb 12.7 L D (14.0-18.0) g/dl Hct 39.4 L D (42.0-52.0) % MCV 82.9 (80.0-98.0) fL MCH 26.7 L (27.0-33.0) pg MCHC 32.2 (31.0-36.0) g/dl RDW 15.1 (11.0-16.0) % Plt Count 303 D (160-400) X10*3/uL MPV 10.5 (9.4-12.4) fL Immature Gran % (Auto) 0.4 (0.0-0.4) % Neut % (Auto) 73.6 H (45-73) % Lymph % (Auto) 19.8 L (20-40) % [place] % (Auto) 5.4 (2-11) % Eos % (Auto) 0.5 (0-4) % Baso % (Auto) 0.3 (0-2) % Lymph # (Auto) 2.1 (1.2-4.9) X10*3/uL [place] # (Auto) 0.6 (0.1-1.2) X10*3/uL Eos # (Auto) 0.1 (0.0-0.4) X10*3/uL Baso # (Auto) 0.0 (0.0-0.2) X10*3/uL Abs Immat Gran (auto) 0.04 H (0.00-0.03) X10*3/uL Absolute Neuts (auto) 8.0 (2.0-8.3) x10*3/uL Absolute Nucleated RBC 0.000 (0.0-0.012) X10*3/uL Nucleated RBC % (auto) 0.0 (0.0-0.2) /100WBC PT 14.5 H (10.9-12.4) SEC INR 1.2 H (0.9-1.1) Sodium 140 (135-145) mmol/L Potassium 3.9 (3.3-5.1) mmol/L Chloride 105 (96-108) mmol/L Carbon Dioxide 23 (22-29) mmol/L Anion Gap 16 (12-20) BUN 18 H (9-16) mg/dL Creatinine 1.05 (0.5-1.4) mg/dL Estim Creat Clear Calc 108.8 Estimated GFR > 60 Random Glucose 121 H (60-115) mg/dL Lactic Acid 1.9 (0.5-2.0) mmol/L Calcium 9.7 (8.4-10.2) mg/dL Magnesium 1.9 (1.6-2.6) mg/dL Total Bilirubin 0.6 (0.0-1.0) mg/dL AST 45 H (5-37) U/L ALT 36 (0-40) U/L Alkaline Phosphatase 98 (39-117) U/L Total Protein 8.5 H (6.5-8.0) g/dL Albumin 4.2 (3.5-5.0) g/dL Triglycerides 138 (<150) mg/dL Lipase 804 H (8-78) U/L Ethyl Alcohol < 10 mg/dL Blood Type O Positive Antibody Screen NEGATIVE Enhanced Crossmatch See Detail Discharge Plan Discharge Patient Disposition: Admitted As Inpatient Prescriptions: No Action (DME) blood pressure monitor [Blood Pressure Kit] Kit See Rx Instructions .Route Qty: 1 0RF Rx Instructions: As directed Eliquis 5 mg tablet 5 mg PO BID 90 Days Qty: 180 1RF amiodarone 200 mg tablet 200 mg PO DAILY Qty: 90 3RF amlodipine 5 mg tablet 5 mg PO DAILY Qty: 90 0RF diphenhydramine-acetaminophen [Tylenol PM Extra Strength] 25-500 mg Tablet 2 tab PO BEDTIME PRN (Reason: Pain/Sleep) Jardiance 10 mg Tablet 10 mg PO DAILY Qty: 90 0RF furosemide 40 mg tablet 40 mg PO DAILY Qty: 30 0RF spironolactone 25 mg Tablet 25 mg PO DAILY Qty: 90 0RF Protocol: Hold for SBP< HOLD for SBP < : 90 valsartan 160 mg Tablet 160 mg PO BID Qty: 180 0RF Protocol: Hold for SBP< HOLD for SBP < : 90 omeprazole 20 mg capsule,delayed release(DR/EC) 20 mg PO DAILY@0630 Qty: 90 0RF oxycodone 5 mg Tablet 5 mg PO Q4H PRN (Reason: Pain, Moderate(Pain Scale 4-6)) Qty: 15 0RF Rx Instructions: Partial Fill upon patient request. (DME) Blood Pressure Cuff Misc See Rx Instructions .Route Qty: 1 0RF Rx Instructions: As directed metoprolol succinate [Toprol XL] 100 mg tablet extended release 24 hr 100 mg PO DAILY Qty: 90 3RF Print Language: Czech
--- NOTE | 2024-08-02 15:35 | ECG_ITS ---
Test Reason : WEAKNESS Blood Pressure : */* mmHG Vent. Rate : 68 BPM Atrial Rate : 68 BPM P-R Int : 174 ms QRS Dur : 76 ms QT Int : 452 ms P-R-T Axes : 38 4 40 degrees QTcB Int : 480 ms Sinus rhythm with frequent Premature ventricular complexes Prolonged QT Abnormal ECG When compared with ECG of 26-Apr-2024 04:19, No significant change was found Referred By: Adam Galvan Electronically Signed By: Tato Delgado
[2024-08-02 16:13] LABS: MANUAL DIFF FLAG NO
[2024-08-02 16:15] LABS: Basophils Percent Auto 0.3 % (0-2); Eosinophils Absolute Auto 0.1 X10*3/uL (0.0-0.4); Eosinophils Percent Auto 0.5 % (0-4); Hematocrit 39.4 % (42.0-52.0); Hemoglobin 12.7 g/dl (14.0-18.0); Imm Gran Abs Auto 0.04 X10*3/uL (0.00-0.03); Imm Gran Pct Auto 0.4 % (0.0-0.4); Lymphocytes Absolute Auto 2.1 X10*3/uL (1.2-4.9); Lymphocytes Percent Auto 19.8 % (20-40); Mean Corpuscular HGB Conc 32.2 g/dl (31.0-36.0); Mean Corpuscular Hemoglobin 26.7 pg (27.0-33.0); Mean Corpuscular Volume 82.9 fL (80.0-98.0); Mean Platelet Volume 10.5 fL (9.4-12.4); Monocytes Absolute Auto 0.6 X10*3/uL (0.1-1.2); Monocytes Percent Auto 5.4 % (2-11); Neutrophils Percent Auto 73.6 % (45-73); Platelet Count 303 X10*3/uL (160-400); Red Blood Count 4.75 X10*6/uL (4.60-5.80); Red Cell Distribution Width 15.1 % (11.0-16.0); White Blood Count 10.8 X10*3/uL (4.8-10.8)
[2024-08-02 16:21] LABS: INTERNATIONAL NORM RATIO 1.2 (0.9-1.1); Prothrombin Time 14.5 SEC (10.9-12.4)
[2024-08-02 16:28] LABS: Lactic Acid 1.9 mmol/L (0.5-2.0)
[2024-08-02 16:29] LABS: Alanine Aminotransferase 36 U/L (0-40); Albumin Level 4.2 g/dL (3.5-5.0); Anion Gap 16 (12-20); Aspartate Amino Transferase 45 U/L (5-37); Bilirubin Total 0.6 mg/dL (0.0-1.0); Blood Urea Nitrogen 18 mg/dL (9-16); Calcium 9.7 mg/dL (8.4-10.2); Carbon Dioxide 23 mmol/L (22-29); Chloride 105 mmol/L (96-108); Creatinine Clr Calc Pharmacy 108.8; Estimated Glomerular Filt Rate > 60; Ethanol < 10 mg/dL; Glucose Random 121 mg/dL (60-115); Magnesium 1.9 mg/dL (1.6-2.6); Potassium 3.9 mmol/L (3.3-5.1); Sodium 140 mmol/L (135-145); Total Protein 8.5 g/dL (6.5-8.0)
[2024-08-02 16:45] LABS: Alkaline Phosphatase 98 U/L (39-117); Lipase 804 U/L (8-78)
[2024-08-02] MEDS: Morphine Sulfate 4 MG/ML CARTRIDGE IVPUSH (19:44)
[2024-08-02] MEDS: LORazepam 2 MG/ML VIAL 1 MG IVPUSH (19:44)
[2024-08-02] MEDS: 0.9 % Sodium Chloride 1,000 ML 999 ML IV (19:45)
[2024-08-02 21:49] LABS: Triglycerides 138 mg/dL (<150)
--- NOTE | 2024-08-02 23:28 | P.HPHOSP_ITS ---
History of Present Illness Date of Service: 08/02/24 Chief Complaint: Abdominal pain This is a 59-year-old male with pertinent history of atrial fibrillation on Eliquis, hypertension, FARHEEN on CPAP, alcohol use disorder, congestive heart failure with preserved ejection fraction, history of V-tach status post ICD, gastroesophageal reflux disease who presents to the emergency department for evaluation of abdominal pain. Patient states his symptoms started on the day of presentation. Pain is in the epigastric region, constant, progressive but without any radiation. States he has had similar pains in the past. Also has associated nausea and multiple episodes of nonbloody emesis. His last alcoholic drink was about 15 days ago. Denies recent alcohol use. Does have a history of alcohol withdrawal including alcohol withdrawal seizures. No fever, chills, chest pain, palpitations, shortness of breath, changes in urinary or bowel habits. In the emergency department, lipase found to be elevated and imaging concerning for acute pancreatitis. Review of Systems 2 Constitutional: Constitutional: Reports poor appetite Cardiovascular: Cardiovascular: Reports no additional cardiovascular complaints Respiratory: Respiratory: Reports no additional respiratory complaints Gastrointestinal: Gastrointestinal: Reports abdominal pain, Reports nausea and Reports vomiting Genitourinary: Genitourinary: Reports no additional male genitourinary complaints [facility] Medical History Acute heart failure with preserved ejection fraction (HFpEF) Anemia Acute exacerbation of CHF (congestive heart failure) Morbid obesity Gastrointestinal bleeding History of cardioversion FARHEEN on CPAP Alcohol abuse HTN (hypertension) (HFpEF) heart failure with preserved ejection fraction Family History Mother HTN (hypertension) Diabetes mellitus Father Diabetes mellitus HTN (hypertension) Maternal Uncle Colon cancer Surgical History History of cardiac radiofrequency ablation History of esophagogastroduodenoscopy (EGD) Hx of colonoscopy Status post ORIF of fracture of ankle S/P hip replacement Social History Household Members: Significant Other and Children Household Members Other:: Girlfriend and daughter Housing: Apartment Are you a primary special needs caregiver to a significant other at home: No Do you presently have visiting nurse or other home services: No Alcohol intake: former Patient Tobacco Use Status: Never used Tobacco e-Cigarette/Vaping Use: Never Used Second Hand Smoke Exposure: No Substance Use Type: Marijuana Advance Directives: Yes Advance Directives on File: Yes Advance Directives Date on File: 01/25/21 service: No Current occupational status: retired Current occupation: rt handed Cognitive needs: No Hearing needs: No Vision needs: No Meds Allergies Allergy/AdvReac Type Severity Reaction Status Date / Time No Known Allergies Allergy Verified 08/02/24 15:36 Home Medications ?Medication ?Instructions ?Recorded ?Confirmed ?Last Taken ?Type diphenhydramine 25 2 tab PO BEDTIME PRN Pain/Sleep 04/26/24 07/23/24 04/25/24 History mg-acetaminophen 500 mg tablet (Tylenol PM Extra Strength) Physical Exam 2 Vital Signs and Narrative: Vital Signs: Last Vital Signs Temp 96.0 F L 08/02/24 15:33 Pulse 62 08/02/24 15:33 Resp 20 08/02/24 15:33 BP 148/96 H 08/02/24 15:33 Pulse Ox 100 08/02/24 15:33 O2 Del Method Room Air 08/02/24 15:33 BMI result Body Mass Index 33.4 Middle-aged male lying in bed in no distress Neck supple, no JVD Regular rate and rhythm, S1-S2 heard Regular breath sounds bilaterally, no wheezing or crackles appreciated Abdomen with a epigastric tenderness, no rigidity Patient is awake, alert and oriented to self, place, time and person ; no focal motor deficit Psych: Normal mood No pedal edema Results Labs 08/02/24 16:07 08/02/24 16:06 Labs: Laboratory Results - last 24 hr 08/02/24 08/02/24 08/02/24 16:06 16:07 16:08 MCV 82.9 MCH 26.7 L MCHC 32.2 RDW 15.1 Plt Count 303 D MPV 10.5 Immature Gran % (Auto) 0.4 Neut % (Auto) 73.6 H Lymph % (Auto) 19.8 L [place] % (Auto) 5.4 Eos % (Auto) 0.5 Baso % (Auto) 0.3 Lymph # (Auto) 2.1 [place] # (Auto) 0.6 Eos # (Auto) 0.1 Baso # (Auto) 0.0 Abs Immat Gran (auto) 0.04 H Absolute Neuts (auto) 8.0 Absolute Nucleated RBC 0.000 Nucleated RBC % (auto) 0.0 PT 14.5 H INR 1.2 H Anion Gap 16 Estim Creat Clear Calc 108.8 Estimated GFR > 60 Random Glucose 121 H Lactic Acid 1.9 Calcium 9.7 Magnesium 1.9 Total Bilirubin 0.6 AST 45 H ALT 36 Alkaline Phosphatase 98 Total Protein 8.5 H Albumin 4.2 Triglycerides 138 Lipase 804 H Ethyl Alcohol < 10 Blood Type O Positive Antibody Screen NEGATIVE Enhanced Crossmatch See Detail Assessment and Plan (1) Acute pancreatitis: Status: Acute Plan This is a 59-year-old male with pertinent history of atrial fibrillation on Eliquis, hypertension, FARHEEN on CPAP, alcohol use disorder, congestive heart failure with preserved ejection fraction, history of V-tach status post ICD, gastroesophageal reflux disease who presents to the emergency department for evaluation of abdominal pain. #. Acute pancreatitis: Will admit patient and continue IV crystalloid resuscitation. IV opioids p.r.n. for analgesia. NPO for bowel rest. Triglycerides okay. Denies recent alcohol use. Liver function not suggestive of cholestasis #. Congestive heart failure with preserved EF: Hold diuretics in the setting of acute pancreatitis. Monitor volume status with crystalloid resuscitation and resume as appropriate #. AFib/V-tach: On Eliquis, amiodarone #. Gastroesophageal reflux disease: On PPI #. Hypertension: Resume home antihypertensives once able to take p.o. #. FARHEEN: CPAP at bedtime #. Alcohol use disorder: Monitor CIWA. Initiating thiamine. Med rec pending DVT prophylaxis: Dre Full code Admit as inpatient and will require two night minimum hospital stay for management of acute and evaluation of pancreatitis (as above), which is not possible in a lesser acute setting. Quality Stroke Does the patient have a stroke diagnosis?: No VTE Prior VTE?: No VTE Risk Level:: Medical - moderate - high VTE Device Contraindication: Treatment Not Indicated VTE Drug Contraindication: N/A - Med Ordered
[2024-08-03] VITALS (10 sets, daily range): BP systolic 109–138; BP diastolic 61–85; PULSE 56–62; RESP 16–20; TEMP 36.2–36.8; O2SAT 93–97; BMI 33.7
[2024-08-03] MEDS: Lactated Ringers 1,000 ML 100 ML IVCONT (00:09)
[2024-08-03] MEDS: LORazepam 2 MG/ML VIAL 1 MG IVPUSH (00:10)
[2024-08-03] MEDS: Morphine Sulfate 4 MG/ML CARTRIDGE IVPUSH ×3 (00:10→22:04)
[2024-08-03] MEDS: Thiamine HCL 100 MG in 0.9 % Sodium Chloride 100 ML 202 MG IV ×2 (00:58→09:12)
[2024-08-03] MEDS: ondansetron HCL 4 MG/2 ML VIAL IVPUSH (00:58)
[2024-08-03 06:06] LABS: MANUAL DIFF FLAG NO
[2024-08-03 06:21] LABS: Basophils Percent Auto 0.5 % (0-2); Eosinophils Percent Auto 0.2 % (0-4); Hematocrit 35.9 % (42.0-52.0); Hemoglobin 11.6 g/dl (14.0-18.0); Imm Gran Abs Auto 0.03 X10*3/uL (0.00-0.03); Imm Gran Pct Auto 0.4 % (0.0-0.4); Lymphocytes Absolute Auto 2.2 X10*3/uL (1.2-4.9); Lymphocytes Percent Auto 25.7 % (20-40); Mean Corpuscular HGB Conc 32.3 g/dl (31.0-36.0); Mean Corpuscular Hemoglobin 26.8 pg (27.0-33.0); Mean Corpuscular Volume 82.9 fL (80.0-98.0); Mean Platelet Volume 11.1 fL (9.4-12.4); Monocytes Absolute Auto 0.6 X10*3/uL (0.1-1.2); Neutrophils Absolute Auto 5.6 x10*3/uL (2.0-8.3); Neutrophils Percent Auto 66.2 % (45-73); Platelet Count 302 X10*3/uL (160-400); Red Blood Count 4.33 X10*6/uL (4.60-5.80); Red Cell Distribution Width 15.3 % (11.0-16.0); White Blood Count 8.4 X10*3/uL (4.8-10.8)
--- NOTE | 2024-08-03 06:27 | PC.NURSE ---
Patient admitted to [facility] from ED this morning with pancreatitis. Has hx of etoh. Pt stated to this writer editor that he drinks a six pack of beer two or three times a week . Pt was unsure of hx of seizures w/ etoh w/d, though per medical record pt does have this hx. CIWA done as ordered, score was a 1. Pt is A&Ox4 and stated his last alcoholic drink was three days ago. Seizure precautions in place. Pt was educated on the safety/fall risks and continues to refuse the bed alarm and requested this writer editor remove the in-room camera that was initially placed to assist with monitoring for seizure activity. Pt denies chest pain, sob, and n/v. Pt c/o 04/25 generalized abdominal pain, medicated with prn IV morphine per MAR for severe pain with +effect reported by patient on reassessment. Pt has NPO orders though covering Dr. Chauhan did okay patient for ice chips per [employer]ne[employer] communication, which pt has been tolerating without issue. LBM per pt was the morning of 08/02. Pt is on room air and declined his HS cpap for FARHEEN, states he uses it at home maybe every other night . Educated to call should he change his mind. Ambulated steadily to the bathroom with standby assist, voided cyu. Please see admission assessment, tasks, and MAR for full details.
[2024-08-03 06:30] LABS: Anion Gap 12 (12-20); Blood Urea Nitrogen 17 mg/dL (9-16); Calcium 9.7 mg/dL (8.4-10.2); Carbon Dioxide 25 mmol/L (22-29); Chloride 107 mmol/L (96-108); Creatinine Clr Calc Pharmacy 131.9; Estimated Glomerular Filt Rate > 60; Glucose Random 90 mg/dL (60-115); Potassium 3.9 mmol/L (3.3-5.1); Sodium 140 mmol/L (135-145)
--- NOTE | 2024-08-03 10:25 | PHA.MEDREC ---
Addendum entered by Justina Leroy RPh 08/03/24 11:26: reviewed by [facility] Original Note: Pharmacy Consult ? Medication Reconciliation Pharmacy has completed the medication reconciliation. Spoke with patient to confirm medications, he had a list on his phones. He confirmed eliquis (last fill per claims x90 DS 04/11/24) and furosemide (last fill per claims x30 DS 04/27/24). Jardiance was the only med not on his list and he confirmed that too. He took all medications in the morning yesterday. Patient is not taking ibuprofen currently. He did not take his evening doses of his bid meds (eliquis, valsartan).
--- NOTE | 2024-08-03 10:57 | MHC.CM.PN ---
PT REPORTS HE LIVES WITH HIS S/O AND CHILD HE IS INDEPENDENT WITH CARE AND HAS NO SERVICES HE HAS A CPAP FOR DME HCP ON FILE PCP: PRIYA SANCHEZ IMM DELIVERED DCP: HOME NO SERVICES VIA FAMILY TRANSPORT
--- NOTE | 2024-08-03 14:32 | P.PNIM_ITS ---
Subjective Subjective Date of Service: 08/03/24 Review of Systems Follow up pancreatitis no abd pain, nvd Physical Exam 2 Vital Signs: Vital Signs: Last Vital Signs Temp 98.0 F 08/03/24 07:14 Pulse 56 08/03/24 07:14 Resp 18 08/03/24 07:14 BP 135/84 08/03/24 07:14 Pulse Ox 97 08/03/24 07:14 O2 Del Method Room Air 08/03/24 07:14 BMI result Body Mass Index 33.7 Appearing in no acute distress head is normocephalic atraumatic eyes pupils are PERRLA sclera is anicteric mouth throat mucous membranes are intact and moist neck is supple no lymphadenopathy, no JVD noted lung sounds are clear to auscultation heart regular rate rhythm, clear S1, S2 positive bowel sounds, abdomen is soft, nontender neuro patient is alert x3, no focal deficits Objective Data Active Medications Acetaminophen (Acetaminophen 325 Mg Tablet) 650 mg PO Q6H PRN PRN Reason: Pain, Mild 1-3,fever,headache Calcium Carbonate (Calcium Carbonate 750 Mg Tab.Chew) 750 mg PO Q4H PRN PRN Reason: Heartburn Thiamine HCl 100 mg/ Sodium (Chloride) 101 mls @ 202 mls/hr IV DAILY [facility] Last Infusion: 08/03/24 10:10 Dose: Infused Documented By: DAVY Magnesium Hydroxide (Milk Of Magnesia 30 Ml Oral.Susp) 30 ml PO DAILY PRN PRN Reason: Constipation Melatonin (Melatonin 3 Mg Tablet) 6 mg PO BEDTIME PRN PRN Reason: Insomnia Morphine Sulfate (Morphine Sulfate 4 Mg/Ml Cartridge) 4 mg IVPUSH Q4H PRN; Protocol PRN Reason: Pain, Severe (Pain Scale 7-10) Last Admin: 08/03/24 05:20 Dose: 4 mg Documented By: MELANI Ondansetron HCl (Ondansetron Hcl 4 Mg/2 Ml Vial) 4 mg IVPUSH Q8H PRN PRN Reason: Nausea and Vomiting Last Admin: 08/03/24 00:58 Dose: 4 mg Documented By: TERESA Sodium Chloride (0.9 % Sodium Chloride Flush 3 Ml Syringe) [address] [facility] Last Admin: 08/03/24 09:16 Dose: Not Given Documented By: DAVY Non-Admin Reason: Previously Administered Labs 08/03/24 05:29 08/03/24 05:29 Labs: Laboratory Results - last 24 hr 08/02/24 08/02/24 08/02/24 16:06 16:07 16:08 MCV 82.9 MCH 26.7 L MCHC 32.2 RDW 15.1 Plt Count 303 D MPV 10.5 Immature Gran % (Auto) 0.4 Neut % (Auto) 73.6 H Lymph % (Auto) 19.8 L [place] % (Auto) 5.4 Eos % (Auto) 0.5 Baso % (Auto) 0.3 Lymph # (Auto) 2.1 [place] # (Auto) 0.6 Eos # (Auto) 0.1 Baso # (Auto) 0.0 Abs Immat Gran (auto) 0.04 H Absolute Neuts (auto) 8.0 Absolute Nucleated RBC 0.000 Nucleated RBC % (auto) 0.0 PT 14.5 H INR 1.2 H Anion Gap 16 Estim Creat Clear Calc 108.8 Estimated GFR > 60 Random Glucose 121 H Lactic Acid 1.9 Calcium 9.7 Magnesium 1.9 Total Bilirubin 0.6 AST 45 H ALT 36 Alkaline Phosphatase 98 Total Protein 8.5 H Albumin 4.2 Triglycerides 138 Lipase 804 H Ethyl Alcohol < 10 Blood Type O Positive Antibody Screen NEGATIVE Enhanced Crossmatch See Detail 08/03/24 05:29 MCV 82.9 MCH 26.8 L MCHC 32.3 RDW 15.3 Plt Count 302 MPV 11.1 Immature Gran % (Auto) 0.4 Neut % (Auto) 66.2 Lymph % (Auto) 25.7 [place] % (Auto) 7.0 Eos % (Auto) 0.2 Baso % (Auto) 0.5 Lymph # (Auto) 2.2 [place] # (Auto) 0.6 Eos # (Auto) 0.0 Baso # (Auto) 0.0 Abs Immat Gran (auto) 0.03 Absolute Neuts (auto) 5.6 Absolute Nucleated RBC 0.000 Nucleated RBC % (auto) 0.0 PT INR Anion Gap 12 Estim Creat Clear Calc 131.9 Estimated GFR > 60 Random Glucose 90 Lactic Acid Calcium 9.7 Magnesium Total Bilirubin AST ALT Alkaline Phosphatase Total Protein Albumin Triglycerides Lipase Ethyl Alcohol Blood Type Antibody Screen Enhanced Crossmatch Assessment and Plan (1) Uncontrolled hypertension: Status: Acute Plan This is a 59-year-old male with pertinent history of atrial fibrillation on Eliquis, hypertension, FARHEEN on CPAP, alcohol use disorder, congestive heart failure with preserved ejection fraction, history of V-tach status post ICD, gastroesophageal reflux disease who presents to the emergency department for evaluation of abdominal pain. Acute pancreatitis IV crystalloid resuscitation. IV opioids p.r.n. for analgesia. advance diet Triglycerides okay. Denies recent alcohol use. Liver function not suggestive of cholestasis Congestive heart failure with preserved EF Hold diuretics in the setting of acute pancreatitis. Monitor volume status with crystalloid resuscitation and resume as appropriate AFib/V-tach On Eliquis, amiodarone Gastroesophageal reflux disease On PPI Hypertension Resume home antihypertensives once able to take p.o. FARHEEN CPAP at bedtime Alcohol use disorder Monitor CIWA. Initiating thiamine. DVT prophylaxis: Joanjohngisela Full code Admit as inpatient and will require two night minimum hospital stay for management of acute and evaluation of pancreatitis (as above), which is not possible in a lesser acute setting. Quality Stroke Does the patient have a stroke diagnosis?: No VTE Prior VTE?: No VTE Risk Level:: Medical - moderate - high VTE Device Contraindication: Treatment Not Indicated VTE Drug Contraindication: N/A - Med Ordered
[2024-08-03] MEDS: Valsartan 160 MG TABLET PO (21:56)
[2024-08-03] MEDS: Apixaban 5 MG TABLET PO (21:58)
[2024-08-03] MEDS: 0.9 % Sodium Chloride Flush 3 ML SYRINGE IVFLUSH (21:59)
[2024-08-04 03:40] VITALS: BP 116/62; PULSE 86; RESP 18; TEMP 36.3; O2SAT 96
[2024-08-04] MEDS: Omeprazole 20 MG CAPSULE.DR PO (06:11)
[2024-08-04 07:22] VITALS: BP 123/80; PULSE 65; RESP 18; TEMP 36.8; O2SAT 94
--- NOTE | 2024-08-04 08:35 | P.DS_ITS ---
DS: Providers Provider Date of Service: 08/04/24 Date of admission: 08/02/24 23:27 Date of discharge: 08/04/24 Primary care physician: Unknown Physician DS: Diagnosis Discharge Diagnosis (1) Uncontrolled hypertension: Status: Acute DS: Summary Hospital Course Hospital Course: History and physical as per admitting provider This is a 59-year-old male with pertinent history of atrial fibrillation on Eliquis, hypertension, FARHEEN on CPAP, alcohol use disorder, congestive heart failure with preserved ejection fraction, history of V-tach status post ICD, gastroesophageal reflux disease who presents to the emergency department for evaluation of abdominal pain. Patient states his symptoms started on the day of presentation. Pain is in the epigastric region, constant, progressive but without any radiation. States he has had similar pains in the past. Also has associated nausea and multiple episodes of nonbloody emesis. His last alcoholic drink was about 15 days ago. Denies recent alcohol use. Does have a history of alcohol withdrawal including alcohol withdrawal seizures. No fever, chills, chest pain, palpitations, shortness of breath, changes in urinary or bowel habits. In the emergency department, lipase found to be elevated and imaging concerning for acute pancreatitis. 59-year-old man treated for acute pancreatitis. Treated with IV fluids, IV analgesia. Diet advanced to regular. Triglycerides normal, denies recent alc ohol abuse and history of it. Patient monitored on CIWA with no notation of withdrawal symptoms. Patient without nausea, vomiting or diarrhea. Plan to discharge patient home. Would recommend bland diet for a few days and plenty of fluids. History of congestive heart failure with preserved ejection fraction. No acute exacerbation. Continue home medications Atrial fibrillation/V-tach. Continue Eliquis and amiodarone GERD. Continue PPI Hypertension. Continue home medications Obstructive sleep apnea. Continue CPAP at bedtime Time Attestation Discharge Coordination Time (in mins): 36 Quality: Safe Use of Opioids Does Pt have an Active Cancer Diagnosis on the Problem List?: No Quality: Stroke Does the patient have a stroke diagnosis?: No Physical Exam Vital Signs: Vital Signs: Last Vital Signs Temp 98.2 F 08/04/24 07:22 Pulse 65 08/04/24 07:22 Resp 18 08/04/24 07:22 BP 123/80 08/04/24 07:22 Pulse Ox 94 08/04/24 07:22 O2 Del Method Room Air 08/04/24 07:22 BMI result Body Mass Index 33.7 Appearing in no acute distress head is normocephalic atraumatic eyes pupils are PERRLA sclera is anicteric mouth throat mucous membranes are intact and moist neck is supple no lymphadenopathy, no JVD noted lung sounds are clear to auscultation heart regular rate rhythm, clear S1, S2 positive bowel sounds, abdomen is soft, nontender neuro patient is alert x3, no focal deficits DS: Data Data Completed and Pending Completed studies during hospitalization [Text1]: Procedures Assistance with Respiratory Ventilation, Less than 24 Consecutive Hours, Continuous Positive Airway Pressure (02/24/24) Detoxification Services for Substance Abuse Treatment (01/24/21) Excision of Duodenum, Via Natural or Artificial Opening Endoscopic, Diagnostic (05/05/24) Excision of Stomach, Pylorus, Via Natural or Artificial Opening Endoscopic, Diagnostic (05/05/24) Sabianist of Cardiac Rhythm, Single (05/17/21) Transfusion of Nonautologous Red Blood Cells into Peripheral Vein, Percutaneous Approach (04/26/24) Discharge Plan Discharge Anticipated Discharge Date/Time: 08/04/24 08:30 Patient Disposition: Home, Self-Care Discharge Diagnosis: Pancreatitis Discharge Medications: New oxycodone 5 mg tablet 5 mg PO Q8H PRN (Reason: pain) Qty: 9 0RF Rx Instructions: Partial Fill upon patient request. Continued (DME) blood pressure monitor [Blood Pressure Kit] Kit See Rx Instructions .Route Qty: 1 0RF Rx Instructions: As directed Eliquis 5 mg tablet 5 mg PO BID 90 Days Qty: 180 1RF amiodarone 200 mg tablet 200 mg PO DAILY Qty: 90 3RF amlodipine 5 mg tablet 5 mg PO DAILY Qty: 90 0RF diphenhydramine-acetaminophen [Tylenol PM Extra Strength] 25-500 mg Tablet 2 tab PO BEDTIME PRN (Reason: Pain/Sleep) Jardiance 10 mg Tablet 10 mg PO DAILY Qty: 90 0RF furosemide 40 mg tablet 40 mg PO DAILY Qty: 30 0RF spironolactone 25 mg Tablet 25 mg PO DAILY Qty: 90 0RF Protocol: Hold for SBP< HOLD for SBP < : 90 valsartan 160 mg Tablet 160 mg PO BID Qty: 180 0RF Protocol: Hold for SBP< HOLD for SBP < : 90 omeprazole 20 mg capsule,delayed release(DR/EC) 20 mg PO DAILY@0630 Qty: 90 0RF (DME) Blood Pressure Cuff Misc See Rx Instructions .Route Qty: 1 0RF Rx Instructions: As directed metoprolol succinate [Toprol XL] 100 mg tablet extended release 24 hr 100 mg PO DAILY Qty: 90 3RF Discharge Orders: Discharge Order (Routine); Ordered 08/04/24 Ordered By: Kellen Rodriguez Diet: Advance to usual diet Activity on Discharge: As tolerated Stand Alone Forms: Patient Portal Discharge page Print Language: Romanian Care Plan Goals: A bland diet for the next few days, drink plenty of fluids Do not drink alcohol. Seek outpatient treatment for assistance with this Health Concerns: Acute pancreatitis Plan of Treatment: Follow-up with primary care provider as needed Take all medications as prescribed Assessment: See discharge summary
--- NOTE | 2024-08-04 08:43 | MHC.CM.PN ---
PT TO DC HOME TODAY WITH NO SERVICES VIA PRIVATE TRANSPORT
[2024-08-04 09:30] VITALS: BP 131/81; PULSE 79; RESP 18; TEMP 37.2; O2SAT 97
[2024-08-04] MEDS: Apixaban 5 MG TABLET PO (09:47)
[2024-08-04] MEDS: Valsartan 160 MG TABLET PO (09:47)
[2024-08-04] MEDS: Amiodarone HCL 200 MG TABLET PO (09:47)
[2024-08-04] MEDS: oxyCODONE HCl Immed Release 5 MG TABLET PO (09:48)
[2024-08-04] MEDS: Furosemide 40 MG TABLET PO (09:48)
[2024-08-04] MEDS: Spironolactone 25 MG TABLET PO (09:48)
[2024-08-04] MEDS: amLODIPine Besylate 5 MG TABLET PO (09:49)
[2024-08-04] MEDS: Metoprolol Succinate ER 100 MG TAB.ER.24H PO (09:49)
== END 2024-08-04 10:58 | disposition home or self-care (01) | DRG 439 ==
LOC: HO.ED 23:26 → HO.EDOVER 23:51 → HO.S3 08-03 03:10
PROVIDERS: Physician Assistant; Admitting Provider Student in an Organized Health Care Education/Training Program; Emergency Provider Internal Medicine; Visit Provider Nurse Practitioner Acute Care
DX: K85.90 Acute pancreatitis without necrosis or infection, unspecified (principal); I42.8 Other cardiomyopathies; I47.20 Ventricular tachycardia, unspecified; I50.32 Chronic diastolic (congestive) heart failure; F10.10 Alcohol abuse, uncomplicated; K21.9 Gastro-esophageal reflux disease without esophagitis; G47.33 Obstructive sleep apnea (adult) (pediatric); K76.0 Fatty (change of) liver, not elsewhere classified; Z95.810 Presence of automatic (implantable) cardiac defibrillator; Z79.01 Long term (current) use of anticoagulants; Z79.899 Other long term (current) drug therapy
CPT/HCPCS: 36415; 74177; 80048; 80053; 80307; 83605; 83690; 83735; 84478; 85025; 85610; 86850; 86900; 86901; 86920; 86921; 93005; 99285; J2060; J2270; J2405; J3411; J7120

== ENCOUNTER → 2024-08-02 15:35 | Outpatient (BNV) | payer MEDICARE, MEDICAID, SELFPAY | PROVIDERS: Admitting Provider Student in an Organized Health Care Education/Training Program; Emergency Provider Internal Medicine; Visit Provider Internal Medicine Cardiovascular Disease | DX: I49.3 Ventricular premature depolarization (principal) | CPT/HCPCS: 93010 ==

== ENCOUNTER → 2024-08-02 19:30 | Outpatient (BNV) | payer MEDICARE, MEDICAID, SELFPAY | PROVIDERS: Emergency Provider Internal Medicine; Visit Provider Radiology Diagnostic Radiology | DX: K85.90 Acute pancreatitis without necrosis or infection, unspecified (principal) | CPT/HCPCS: 74177 ==

== ENCOUNTER → 2024-08-02 23:27 | Outpatient (BNV) | payer MEDICARE, MEDICAID, SELFPAY | PROVIDERS: Admitting Provider Student in an Organized Health Care Education/Training Program; Emergency Provider Internal Medicine; Visit Provider Student in an Organized Health Care Education/Training Program | DX: K85.90 Acute pancreatitis without necrosis or infection, unspecified (principal); I10 Essential (primary) hypertension; K21.9 Gastro-esophageal reflux disease without esophagitis | CPT/HCPCS: 99222; 99232 ==

== ENCOUNTER 2024-08-09 04:43 | Inpatient (IN) | payer MEDICARE, MEDICAID, SELFPAY ==
[2024-08-09] VITALS (8 sets, daily range): BP systolic 125–151; BP diastolic 67–89; PULSE 63–82; RESP 16–18; TEMP 36.6–37.2; O2SAT 97–98; BMI 33.7
--- NOTE | ~2024-08-09 | US_ITS ---
CLINICAL HISTORY: R O any obstructing CBD Pancreatic duct stones. US abdomen limited Comparison: CT/SR - CT ABDOMEN PELVIS W IV CON - 08/09/24 07:44 EST Findings: Evaluation of the pancreas is limited by overlying bowel gas. There is a 4.5 x 3.8 x 5.1 cm cystic focus at the level of the pancreatic head and neck. The pancreatic duct is estimated at 4.4 mm within visualized portions. Very limited visualization. No obvious pancreatic duct stones however pancreatic parenchyma is otherwise not well evaluated. The visualized IVC is unremarkable. The liver is normal in size and echotexture. There is no intrahepatic bile duct dilatation. The common duct is 4 mm in diameter. The gallbladder is normal. There is no sonographic Adair sign. The main portal vein is antegrade. No ascites. IMPRESSION: 1. 4.5 cm cyst or pseudocyst at the level of the pancreatic head and neck. 2. Very limited visualization of the pancreatic duct, which is mildly dilated. This document has been electronically signed by: Ene Clemons MD on 08/10/2024 17:01:04
--- NOTE | ~2024-08-09 | CT_ITS ---
EXAMINATION: CT ABDOMEN PELVIS WITH IV CONTRAST HISTORY: recent pancreatitis, worsening abd pain COMPARISON: Comparison is made with the prior examination dated 08/02/2024. TECHNIQUE: CT scan of the abdomen and pelvis was performed following administration of 85 mL Omnipaque 350 using standard departmental protocol. Coronal and sagittal reformatted images were generated and reviewed. Oral contrast material was not administered at the request of the referring physician. This CT exam was performed with one or more of the following dose reduction techniques: automated exposure control, adjustment of the mA and/or kV according to patient size, use of iterative reconstruction technique. DLP: 1175 mGy-cm FINDINGS: LOWER CHEST: The visualized lung bases are clear. There is no pleural effusion. CARDIOVASCULATURE: The heart is normal in size. There is no pericardial effusion. A pacemaker is seen in place. LIVER: The liver is normal in size and contour. No liver mass is identified. The hepatic and portal veins are patent. GALLBLADDER / BILE DUCTS: The gallbladder is unremarkable. There is no intra or extrahepatic biliary ductal dilatation. SPLEEN: The spleen is normal in size. No focal splenic lesion is identified. PANCREAS: Again seen is a mild infiltration of the fat about the pancreatic body and tail, consistent with acute pancreatitis. Streak artifact from embolization coils are again noted in the pancreaticoduodenal groove. There is an enlarging fluid collection in the pancreatic neck measuring 4.2 x 3.8 x 4.0 cm (previously 3.3 x 3.4 x 2.8 cm), which may represent a pseudocyst or abscess. This causes compression of the portal vein. The pancreatic duct is not dilated. There is normal enhancement of the pancreas. ADRENAL GLANDS: Within normal limits. KIDNEYS/RETROPERITONEUM: No renal calculi are identified. There is no hydronephrosis. No renal masses are identified. LYMPH NODES: No abdominal or pelvic lymphadenopathy. VASCULATURE: The abdominal aorta demonstrates atherosclerotic calcification, but is normal in caliber. MESENTERY/PERITONEUM: No free fluid. No masses. There is no free intraperitoneal gas. STOMACH: The stomach is collapsed, limiting evaluation. SMALL BOWEL: The small bowel is normal in caliber. COLON: The colon is unremarkable. APPENDIX: Normal. URINARY BLADDER/PELVIC ORGANS: The urinary bladder is partially obscured by streak artifact from a left total hip arthroplasty. The prostate is normal in size. BONES / SOFT TISSUES: There is mild degenerative disc disease of the spine. CT/CT abdomen pelvis w IV con IMPRESSION: Again seen are findings consistent with acute pancreatitis. There is an enlarging fluid collection in the pancreatic neck measuring 4.2 x 3.8 x 4.0 cm, which may represent a pseudocyst or abscess. This causes compression of the portal vein. Electronically signed by: Ace Saldana MD 08/09/2024 08:14 AM [facility] [place]
[2024-08-09 05:10] LABS: MANUAL DIFF FLAG NO
[2024-08-09 05:12] LABS: Basophils Absolute Auto 0.1 X10*3/uL (0.0-0.2); Basophils Percent Auto 0.7 % (0-2); Eosinophils Absolute Auto 0.2 X10*3/uL (0.0-0.4); Eosinophils Percent Auto 1.9 % (0-4); Hematocrit 35.6 % (42.0-52.0); Hemoglobin 11.4 g/dl (14.0-18.0); Imm Gran Abs Auto 0.02 X10*3/uL (0.00-0.03); Imm Gran Pct Auto 0.2 % (0.0-0.4); Lymphocytes Absolute Auto 2.2 X10*3/uL (1.2-4.9); Lymphocytes Percent Auto 19.4 % (20-40); Mean Corpuscular Hemoglobin 26.9 pg (27.0-33.0); Mean Platelet Volume 11.1 fL (9.4-12.4); Monocytes Absolute Auto 1.1 X10*3/uL (0.1-1.2); Monocytes Percent Auto 9.4 % (2-11); Neutrophils Absolute Auto 7.7 x10*3/uL (2.0-8.3); Neutrophils Percent Auto 68.4 % (45-73); Platelet Count 283 X10*3/uL (160-400); Red Blood Count 4.24 X10*6/uL (4.60-5.80); Red Cell Distribution Width 14.8 % (11.0-16.0); White Blood Count 11.3 X10*3/uL (4.8-10.8)
[2024-08-09 05:40] LABS: Alanine Aminotransferase 19 U/L (0-40); Albumin Level 3.9 g/dL (3.5-5.0); Alkaline Phosphatase 90 U/L (39-117); Anion Gap 15 (12-20); Aspartate Amino Transferase 27 U/L (5-37); Bilirubin Direct 0.2 mg/dL (0.0-0.5); Bilirubin Total 0.6 mg/dL (0.0-1.0); Blood Urea Nitrogen 18 mg/dL (9-16); Calcium 9.3 mg/dL (8.4-10.2); Carbon Dioxide 21 mmol/L (22-29); Chloride 106 mmol/L (96-108); Creatinine Clr Calc Pharmacy 102.6; Estimated Glomerular Filt Rate > 60; Glucose Random 108 mg/dL (60-115); Lipase 188 U/L (8-78); Potassium 3.5 mmol/L (3.3-5.1); Sodium 138 mmol/L (135-145); Total Protein 7.8 g/dL (6.5-8.0)
--- NOTE | 2024-08-09 06:49 | ED_ITS ---
HPI - Abdominal Pain General Chief Complaint: Abdominal Pain Stated Complaint: abd pain Time Seen by Provider: 08/09/24 06:49 Source: patient, RN notes reviewed and old records reviewed Mode of arrival: ambulatory Limitations: no limitations History of Present Illness ED Provider: Joana Pineda PA-C HPI narrative: 59-year-old male with history of recent [place]02[place]08[place] [facility] [place]itis presents to the ER for evaluation of worsening diffuse abdominal pain that started yesterday morning. Patient reports inability to eat all day yesterday, when he tried to eat dinner last night had acute worsening of the pain. He states he had 2 small tacos and a small piece of pizza which made the pain significantly worse. He states he was up all night because of the pain. He endorses nausea and vomiting as well. No diarrhea or constipation. No fevers. No urinary symptoms. No alcohol use in over 3 weeks. He has been trying to stick to a bland diet at home. He states when he was discharged he was eating a regular diet with minimal pain MD elicited complaint: abdominal pain Pertinent past history: other (pancreatitis) Onset (ago): day(s) (1) Pain Consistency: constant Location: periumbilical Severity: severe Pain scale (0-10): 10 Quality: stabbing Radiation: none Migration to: no migration Exacerbating factors: eating Relieving factors: nothing Context: history of similar episodes Associated symptoms: nausea and vomiting Related Data Home Medications ?Medication ?Instructions ?Recorded ?Confirmed diphenhydramine 25 2 tab PO BEDTIME PRN Pain/Sleep 04/26/24 08/06/24 mg-acetaminophen 500 mg tablet (Tylenol PM Extra Strength) Previous Rx's ?Medication ?Instructions ?Recorded blood pressure monitor (Blood #1 ea 04/25/23 Pressure Kit) apixaban 5 mg tablet (Eliquis) 5 mg PO BID 90 days #180 tabs 12/04/23 amiodarone 200 mg tablet 200 mg PO DAILY #90 tabs 12/26/23 metoprolol succinate 100 mg 100 mg PO DAILY #90 tabs 02/15/24 tablet,extended release 24 hr (Toprol XL) miscellaneous medical supply #1 ea 03/06/24 (Blood Pressure Cuff) empagliflozin 10 mg tablet 10 mg PO DAILY #90 tabs 04/27/24 (Jardiance) furosemide 40 mg tablet 40 mg PO DAILY #30 tabs 04/27/24 spironolactone 25 mg tablet 25 mg PO DAILY #90 tabs 04/27/24 valsartan 160 mg tablet 160 mg PO BID #180 tabs 04/27/24 amlodipine 5 mg tablet 5 mg PO DAILY #90 tabs 07/22/24 oxycodone 5 mg tablet 5 mg PO Q8H PRN pain #9 tabs 08/04/24 omeprazole 20 mg capsule,delayed 20 mg PO QAM #90 caps 08/05/24 release Allergies Allergy/AdvReac Type Severity Reaction Status Date / Time No Known Allergies Allergy Verified 08/09/24 04:46 Review of Systems Review of Systems Yes all other systems are reviewed and are negative FOR[facility] Past Medical History Medical History Acute heart failure with preserved ejection fraction (HFpEF) Anemia Acute exacerbation of CHF (congestive heart failure) Morbid obesity Gastrointestinal bleeding History of cardioversion FARHEEN on CPAP Alcohol abuse HTN (hypertension) (HFpEF) heart failure with preserved ejection fraction Surgical History History of cardiac radiofrequency ablation History of esophagogastroduodenoscopy (EGD) Hx of colonoscopy Status post ORIF of fracture of ankle S/P hip replacement Family History Family History Mother HTN (hypertension) Diabetes mellitus Father Diabetes mellitus HTN (hypertension) Maternal Uncle Colon cancer Social History Social History Household Members: Significant Other and Children Household Members Other:: GF, daughter Housing: Apartment Are you a primary respiratory care assistant to a significant other at home: No Do you presently have visiting nurse or other home services: No Alcohol intake: former Comment: pt refusing high falls measures exc socks Patient Tobacco Use Status: Never used Tobacco e-Cigarette/Vaping Use: Never Used Second Hand Smoke Exposure: No Substance Use Type: Marijuana Advance Directives: Yes Advance Directives on File: Yes Advance Directives Date on File: 01/25/21 Do you have a plan to hurt others: No Plan service: No Current occupational status: retired Current occupation: rt handed Cognitive needs: No Hearing needs: No Vision needs: No Physical Exam ED Vital Signs: Vital Signs - 24 hr 08/09/24 04:46 08/09/24 08:00 Temperature 98.1 F 98.5 F Pulse Rate 77 63 Respiratory Rate 18 17 Blood Pressure 128/81 141/67 H Pulse Oximetry 97 97 Oxygen Delivery Method Room Air Room Air BMI result Body Mass Index 33.7 Appearance: Alert. Oriented X3. Appears uncomfortable and in pain Head: normocephalic, atraumatic. Eyes: Pupils equal, round and reactive to light. ENT: Pharynx normal. No tonsillar swelling or exudate. Neck: Normal inspection. Neck supple. CVS: Normal heart rate and rhythm. Pulses normal. Respiratory: No respiratory distress. Breath sounds normal. Abdomen: Soft with periumbilical tenderness to palpation with guarding, no rebound. Normal active +BS x4 Skin: Skin warm and dry. Normal skin color. Normal skin turgor. No rashes. Extremities: No lower extremity edema. No joint swelling. Neuro/psych: Oriented X 3. No motor deficit. No sensory deficit. CN II-XII intact. Normal speech and cognition. Medical Decision Making Medical Decision Making MDM Narrative: 59 year old male with history of recent alcohol induced pancreatitis last week presents back to the ER for evaluation of worsening abdominal pain that started yesterday. He endorses nausea and vomiting. On examination he does have significant tenderness and appears uncomfortable. Will need to get a CT scan to rule out potential complications of pancreatitis including pseudocyst and necrosis. IV was established and he was given IV Dilaudid and IV fluids Pain improved from a 10/10 to a 5/10 after 1 mg of IV Dilaudid upon reassessment. He is hemodynamically stable. CT scan reviewed and it is showing a 4 cm pancreatic pseudocyst versus abscess. Low suspicion for abscess. He has very mild leukocytosis, no fever. Case discussed with Dr. Jimenez from GI, they will consult on the case. We will plan to admit the patient for further management. Patient updated on plan of care Differential Diagnosis Differential Diagnoses: The differential diagnosis associated with the presentation includes Recurrent/persistent pancreatitis, pancreatic pseudocyst, necrotizing pancreatitis, cholecystitis Admission/Observation Consideration of admission/observation: Escalation of care including admission/observation considered Consult Healthcare Provider Management of the patient was discussed with: Hospitalist and Master Pilot Dr. Jimenez from GI aware of the patient and will see Lab Data MDM Lab Attestation statement: I reviewed the patient's lab results. mild leukocytosis , mild anemia, lipase 118 improved from 800s 08/09/24 05:00 08/09/24 05:00 Labs: Lab Results 08/09/24 Range/Units 05:00 WBC 11.3 H (4.8-10.8) X10*3/uL RBC 4.24 L (4.60-5.80) X10*6/uL Hgb 11.4 L (14.0-18.0) g/dl Hct 35.6 L (42.0-52.0) % MCV 84.0 (80.0-98.0) fL MCH 26.9 L (27.0-33.0) pg MCHC 32.0 (31.0-36.0) g/dl RDW 14.8 (11.0-16.0) % Plt Count 283 (160-400) X10*3/uL MPV 11.1 (9.4-12.4) fL Immature Gran % (Auto) 0.2 (0.0-0.4) % Neut % (Auto) 68.4 (45-73) % Lymph % (Auto) 19.4 L (20-40) % [place] % (Auto) 9.4 (2-11) % Eos % (Auto) 1.9 (0-4) % Baso % (Auto) 0.7 (0-2) % Lymph # (Auto) 2.2 (1.2-4.9) X10*3/uL [place] # (Auto) 1.1 (0.1-1.2) X10*3/uL Eos # (Auto) 0.2 (0.0-0.4) X10*3/uL Baso # (Auto) 0.1 (0.0-0.2) X10*3/uL Abs Immat Gran (auto) 0.02 (0.00-0.03) X10*3/uL Absolute Neuts (auto) 7.7 (2.0-8.3) x10*3/uL Absolute Nucleated RBC 0.000 (0.0-0.012) X10*3/uL Nucleated RBC % (auto) 0.0 (0.0-0.2) /100WBC Hold Blue Top SEE NOTE Sodium 138 (135-145) mmol/L Potassium 3.5 (3.3-5.1) mmol/L Chloride 106 (96-108) mmol/L Carbon Dioxide 21 L (22-29) mmol/L Anion Gap 15 (12-20) BUN 18 H (9-16) mg/dL Creatinine 1.12 (0.5-1.4) mg/dL Estim Creat Clear Calc 102.6 Estimated GFR > 60 Random Glucose 108 (60-115) mg/dL Calcium 9.3 (8.4-10.2) mg/dL Total Bilirubin 0.6 (0.0-1.0) mg/dL Direct Bilirubin 0.2 (0.0-0.5) mg/dL AST 27 (5-37) U/L ALT 19 (0-40) U/L Alkaline Phosphatase 90 (39-117) U/L Total Protein 7.8 (6.5-8.0) g/dL Albumin 3.9 (3.5-5.0) g/dL Lipase 188 H (8-78) U/L Medications Administered Discontinued Medications Generic Name Dose Route Start Last Admin Trade Name Freq PRN Reason Stop Dose Admin Hydromorphone HCl 1 mg 08/09/24 06:55 08/09/24 07:08 Hydromorphone Hcl 1 Mg/Ml Syringe IVPUSH 08/09/24 06:56 1 mg ONCE ONE Administration Protocol Lactated Ringer's 1,000 mls @ 999 mls/hr 08/09/24 07:00 08/09/24 08:28 Lr IV 08/09/24 08:00 Infused .Q1H1M TIGIST Infusion Iohexol 100 ml 08/09/24 07:59 08/09/24 07:59 Iohexol 350 Mg/Ml 100 Ml Infus..Btl IV 08/09/24 08:00 85 ml ONCE ONE Administration Critical Care Time Critical Care Time Critical Care Time: Yes Total Critical Care Time: 42 Attestation: I have personally provided critical care time exclusive of time spent on separately billable procedures. Time includes review of lab data, radiology results, discussion with consultants, and monitoring for potential decompensation. Intervention performed as documented. Discharge Plan Discharge Clinical Impression: Pancreatic pseudocyst Pancreatitis Qualifiers: Chronicity: acute Pancreatitis type: alcohol induced Acute pancreatitis complication: unspecified Qualified Code(s): K85.20 - Alcohol induced acute pancreatitis without necrosis or infection Patient Disposition: Admitted As Inpatient Print Language: Emirati
[2024-08-09] MEDS: Lactated Ringers 1,000 ML 999 ML IV (07:08)
[2024-08-09] MEDS: HYDROmorphone HCl 1 MG/ML SYRINGE IVPUSH (07:08)
[2024-08-09] MEDS: iohexoL 350 MG/ML 100 ML INFUS..BTL IV (07:59)
[2024-08-09] MEDS: HYDROmorphone HCl 0.5 MG/0.5 ML SYRINGE IVPUSH (09:22)
--- NOTE | 2024-08-09 09:44 | PHA.MEDREC ---
Pharmacy Consult ? Medication Reconciliation Pharmacy has completed the medication reconciliation. Utilized discharge packet from 08/04/24.
--- NOTE | 2024-08-09 11:16 | P.HPHOSP_ITS ---
History of Present Illness Date of Service: 08/09/24 Attending physician on admission: Magda Benedict Chief Complaint: Abd pain Pt is a 59-year-old male with a PMH significant for?paroxysmal AFib on Eliquis, HTN, HFpEF, hx of V-tach s/p ICD in place, HTN, FARHEEN on CPAP, GERD, and alcohol use disorder who presents to the ED with?worsening abdominal pain. Pt was recently discharged from the hospital 5 days prior on 08/04 after being admitted and treated for acute pancreatitis. Pt reports initially did well without pain or nausea while adhering to a liquid diet. Yesterday pt reported eating a slice of pizza and some chicken toquitos. Soon after developed worsening LUQ abdominal pain with nausea and vomiting. Pain was constant, sharp and stabbing, and nonradiating. Was up all night due to pain. Pt denies drinking alcohol since discharge. No fever or chills. Denies chest pain/pressure, palpitations. No shortness a breath or difficulty breathing. In the ED pt's vitals stable and largely WNL except hypertension of 41/67. Labs were significant for leukocytosis of 11.3 and lipase 188 (reduced from previous of 804). Stable normocytic anemia. No significant electrolyte abnormalities. Creatinine 1.12, around baseline. LFTs WNL. CT?of abdomen and pelvis showed findings consistent of acute pancreatitis with enlarging fluid collection 4.2 x 3.8 x 4.0 cm likely pseudocyst or abscess, causing compression on portal vein. Pt was treated with Dilaudid and IVF. Pt will be admitted to the hospital for treatment and further evaluation of intractable nausea, vomiting, and abdominal pain secondary to pancreatic pseudocyst. Review of Systems 2 Review of Systems: Negative except for that which is stated in the HPI. [facility] Medical History Acute heart failure with preserved ejection fraction (HFpEF) Anemia Acute exacerbation of CHF (congestive heart failure) Morbid obesity Gastrointestinal bleeding History of cardioversion FARHEEN on CPAP Alcohol abuse HTN (hypertension) (HFpEF) heart failure with preserved ejection fraction Family History Mother HTN (hypertension) Diabetes mellitus Father Diabetes mellitus HTN (hypertension) Maternal Uncle Colon cancer Surgical History History of cardiac radiofrequency ablation History of esophagogastroduodenoscopy (EGD) Hx of colonoscopy Status post ORIF of fracture of ankle S/P hip replacement Social History Household Members: Significant Other and Children Household Members Other:: GF, daughter Housing: Apartment Are you a primary child care provider to a significant other at home: No Do you presently have visiting nurse or other home services: No Alcohol intake: former Comment: pt refusing high falls measures exc socks Patient Tobacco Use Status: Never used Tobacco e-Cigarette/Vaping Use: Never Used Second Hand Smoke Exposure: No Substance Use Type: Marijuana Advance Directives: Yes Advance Directives on File: Yes Advance Directives Date on File: 01/25/21 Do you have a plan to hurt others: No Plan service: No Current occupational status: retired Current occupation: rt handed Cognitive needs: No Hearing needs: No Vision needs: No Meds Allergies Allergy/AdvReac Type Severity Reaction Status Date / Time No Known Allergies Allergy Verified 08/09/24 04:46 Home Medications ?Medication ?Instructions ?Recorded ?Confirmed ?Last Taken ?Type diphenhydramine 25 2 tab PO BEDTIME PRN Pain/Sleep 04/26/24 08/09/24 04/25/24 History mg-acetaminophen 500 mg tablet (Tylenol PM Extra Strength) Physical Exam 2 Vital Signs and Narrative: Vital Signs: Last Vital Signs Temp 98.5 F 08/09/24 08:00 Pulse 63 08/09/24 08:00 Resp 17 08/09/24 08:00 BP 141/67 H 08/09/24 08:00 Pulse Ox 97 08/09/24 08:00 O2 Del Method Room Air 08/09/24 08:00 BMI result Body Mass Index 33.7 General: AOx3, no acute distress Resp: CTA bilaterally CVS: S1, S2, RRR GI: +BS, no distention, LUQ pain Skin: Warm, dry Neuro: Cranial nerves II-XII grossly intact bilaterally. Motor grossly intact bilaterally Extremities: No edema Psych: Appropriate affect Results Labs 08/09/24 05:00 08/09/24 05:00 Labs: Laboratory Results - last 24 hr 08/09/24 05:00 MCV 84.0 MCH 26.9 L MCHC 32.0 RDW 14.8 Plt Count 283 MPV 11.1 Immature Gran % (Auto) 0.2 Neut % (Auto) 68.4 Lymph % (Auto) 19.4 L [place] % (Auto) 9.4 Eos % (Auto) 1.9 Baso % (Auto) 0.7 Lymph # (Auto) 2.2 [place] # (Auto) 1.1 Eos # (Auto) 0.2 Baso # (Auto) 0.1 Abs Immat Gran (auto) 0.02 Absolute Neuts (auto) 7.7 Absolute Nucleated RBC 0.000 Nucleated RBC % (auto) 0.0 Hold Blue Top SEE NOTE Anion Gap 15 Estim Creat Clear Calc 102.6 Estimated GFR > 60 Random Glucose 108 Calcium 9.3 Total Bilirubin 0.6 Direct Bilirubin 0.2 AST 27 ALT 19 Alkaline Phosphatase 90 Total Protein 7.8 Albumin 3.9 Lipase 188 H Imaging Radiologist's Impressions: Impressions Abdomen/Pelvis CT 08/09/24 07:44 IMPRESSION: Again seen are findings consistent with acute pancreatitis. There is an enlarging fluid collection in the pancreatic neck measuring 4.2 x 3.8 x 4.0 cm, which may represent a pseudocyst or abscess. This causes compression of the portal vein. Electronically signed by: Ace Saldana MD 08/09/2024 08:[address] [facility] Assessment and Plan (1) Pancreatic pseudocyst: Status: Acute Plan Pt is a 59-year-old male with a PMH significant for?paroxysmal AFib on Eliquis, HTN, HFpEF, hx of V-tach s/p ICD in place, HTN, FARHEEN on CPAP, GERD, and alcohol use disorder who presents to the ED with?worsening abdominal pain. Pt will be admitted to the hospital for treatment and further evaluation of intractable nausea, vomiting, and abdominal pain secondary to pancreatic pseudocyst. Pancreatic pseudocyst Pt LUQ abdominal pain since last night after resuming regular diet CT showing enlarging fluid collection and pancreatic neck measuring 4.2 x 3.8 x 4.0 cm Discharged 5 days prior after being treated for acute pancreatitis Will treat with bowel rest, IVF, analgesics, and antiemetics Advance diet as tolerated Follow BMP HFrEF Does not appear to be in acute exacerbation Hold diuretics Pt receiving IVF, monitor volume status Resume diuretics as appropriate AFib/V-tach Continue Eliquis, amiodarone GERD Continue PPI HTN Continue anithypertensives FARHEEN CPAP at bedtime Full Code Attending:?Dr. Benedict DVT Prophylaxis: On Eliquis Pt will require a hospitalization of at least two nights for treatment of?intractable nausea, vomiting, abdominal pain in the setting pancreatic pseudocyst likely secondary to recent acute pancreatitis. Quality Stroke Does the patient have a stroke diagnosis?: No VTE Prior VTE?: No VTE Risk Level:: Medical - moderate - high VTE Device Contraindication: Treatment Not Indicated VTE Drug Contraindication: N/A - Med Ordered
[2024-08-09] MEDS: Apixaban 5 MG TABLET PO ×2 (12:50→21:27)
[2024-08-09] MEDS: Omeprazole 20 MG CAPSULE.DR PO (12:50)
[2024-08-09] MEDS: Amiodarone HCL 200 MG TABLET PO (12:50)
[2024-08-09] MEDS: Metoprolol Succinate ER 100 MG TAB.ER.24H PO (12:50)
[2024-08-09] MEDS: amLODIPine Besylate 5 MG TABLET PO (12:50)
[2024-08-09] MEDS: Lactated Ringers 1,000 ML 100 ML IVCONT ×2 (12:57→19:02)
[2024-08-09] MEDS: ondansetron HCL 4 MG/2 ML VIAL IVPUSH (13:01)
--- NOTE | 2024-08-09 14:00 | MHC.CM.PN ---
PT LIVES WITH G/F PT IS INDEPENDENT HAD N/S DC PLAN HOME NO SERVICES
--- NOTE | 2024-08-09 14:17 | P.CNGI_ITS ---
History of Present Illness Data of Consult Service Date: 08/09/24 Requesting physician: Lisa Pineda Primary Care Provider: Unknown Physician HPI Reason for consult: Acute on chronic pancreatitis with pseudocyst 59 YM with paroxysmal AFib on Eliquis, HTN, HFpEF, hx of V-tach s/p ICD in place, HTN, FARHEEN on CPAP, GERD, and alcohol use disorder seen at [facility] ED on 08/09/24 with?worsening abdominal pain. Pt was recently discharged from the hospital 5 days prior on 08/04 after being admitted and treated for acute pancreatitis. Pt reports he was doing well without pain or nausea while taking jello and a liquid diet. On 08/08/24 around 4-5 pm, he ate a slice of pizza and some chicken toquitos and noted worsening LUQ pain, nausea and vomiting immediately after. Pt describes the pain as sharp and stabbing, and nonradiating - goes away and then comes back. He reports being unable to sleep due to abdominal pain and drove himself to the ED early this morning. States pain has improved, he has some nausea and denies vomting Pt denies drinking alcohol for the past 1.5 weeks. Denies fever, chills, chest pain/pressure, palpitations or shortness a breath. 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 In the ED pt's vitals stable and largely WNL except hypertension of 141/67. Labs were significant for leukocytosis of 11.3 and lipase 188 (reduced from previous of 804). Stable normocytic anemia. No significant electrolyte abnormalities. Creatinine 1.12, around baseline. LFTs WNL. Pt was treated with Dilaudid and IVF and admitted to [facility] for management of acute recurrent pancreatitis complicated by pancreatic pseudocy 08/08/[address] SCAN SHOWED: Again seen are findings consistent with acute pancreatitis. There is an enlarging fluid collection in the pancreatic neck measuring 4.2 x 3.8 x 4.0 cm, which may represent a pseudocyst or abscess. This causes compression of the portal vein. PAST GI HISTORY BY REVIEW OF MEDICAL RECORDS: Pt has a history of a previous periduodenal hematoma which was treated with embolization of the gastroduodenal artery earlier this year in [place]. 05/06/24 EGD SHOWED: Endoscopy Findings: ESOPHAGUS: Focal 1 cms non-bleeding ulcer at GE junction - likely healing Renita-Hernandez tear STOMACH: Mild gastritis DUODENUM: Prominent benign appearing folds occupying the lumen in the apex of the bulb (likely residual changes from past duodenal ulcer and alisha-duodenal hematoma in September, - biopsies were obtained. A mid size upper endoscope was passed into the 2nd part of duodenum without resistance.. No blood seen in the upper GI tract during EGD. Plan: UGI bleeding likely from a MW tear - healing. Continue Omeprazole 20 mg daily. Start a clear liquid diet and advance diet as tolerated. If pt has recurrent abdominal pain, obtain Abd CT scan with PO contrast (unable to get IV contrast due to elevated Cr) Pt is scheduled to have a colonoscopy with Dr Rahman on 07/23/23. Above findings were reviewed with the patient and relevant handouts were given and the discharge area. BIOPSIES SHOWED: A. Duodenum, fold, biopsy: Chronic inactive duodenitis with Rodrigo gland hyperplasia. B. Stomach, antrum, biopsy: Antral-type mucosa with mild chronic inactive inflammation; no Helicobacter organisms seen. Review of Systems 2 Review of Systems: Negative except for that which is stated in the HPI. [facility] Past Medical History Medical History (Updated 08/12/24 @ 12:49 by Magda Benedict MD) Acute pancreatitis Acute heart failure with preserved ejection fraction (HFpEF) Anemia Acute exacerbation of CHF (congestive heart failure) Morbid obesity Gastrointestinal bleeding History of cardioversion FARHEEN on CPAP Alcohol abuse HTN (hypertension) (HFpEF) heart failure with preserved ejection fraction Family History Family History Mother HTN (hypertension) Diabetes mellitus Father Diabetes mellitus HTN (hypertension) Maternal Uncle Colon cancer Surgical History Surgical History History of cardiac radiofrequency ablation History of esophagogastroduodenoscopy (EGD) Hx of colonoscopy Status post ORIF of fracture of ankle S/P hip replacement Social History Social History Household Members: Significant Other Household Members Other:: GF, daughter Housing: Apartment Are you a primary rn progressive care unit to a significant other at home: No Do you presently have visiting nurse or other home services: No Alcohol intake: former Comment: pt refusing high falls measures exc socks Patient Tobacco Use Status: Never used Tobacco e-Cigarette/Vaping Use: Never Used Second Hand Smoke Exposure: No Substance Use Type: Marijuana Advance Directives Date on File: 01/25/21 service: No Current occupational status: retired Current occupation: rt handed Cognitive needs: No Hearing needs: No Vision needs: No Meds Allergies Allergy/AdvReac Type Severity Reaction Status Date / Time No Known Allergies Allergy Verified 08/09/24 04:46 Active Medications: Current Medications Acetaminophen (Acetaminophen 325 Mg Tablet) 650 mg PO Q6H PRN PRN Reason: Pain, Mild 1-3,fever,headache Amiodarone HCl (Amiodarone Hcl 200 Mg Tablet) 200 mg PO DAILY [facility] Last Admin: 08/09/24 12:50 Dose: 200 mg Amlodipine Besylate (Amlodipine Besylate 5 Mg Tablet) 5 mg PO DAILY [facility]; Protocol Last Admin: 08/09/24 12:50 Dose: 5 mg Apixaban (Apixaban 5 Mg Tablet) 5 mg PO BID [facility] Last Admin: 08/09/24 12:50 Dose: 5 mg Calcium Carbonate (Calcium Carbonate 750 Mg Tab.Chew) 750 mg PO Q4H PRN PRN Reason: Heartburn Hydromorphone HCl (Hydromorphone Hcl 1 Mg/Ml Syringe) 0.5 mg IVPUSH Q4H PRN; Protocol PRN Reason: Pain, Severe (Pain Scale 7-10) Lactated Ringer's (Lr) 1,000 mls @ 100 mls/hr IVCONT .Q10H [facility] Last Admin: 08/09/24 12:57 Dose: 100 mls/hr Magnesium Hydroxide (Milk Of Magnesia 30 Ml Oral.Susp) 30 ml PO DAILY PRN PRN Reason: Constipation Melatonin (Melatonin 3 Mg Tablet) 6 mg PO BEDTIME PRN PRN Reason: Insomnia Metoprolol Succinate (Metoprolol Succinate Er 100 Mg Tab.Er.24h) 100 mg PO DAILY [facility]; Protocol Last Admin: 08/09/24 12:50 Dose: 100 mg Omeprazole (Omeprazole 20 Mg Capsule.Dr) 20 mg PO DAILY@0630 [facility] Last Admin: 08/09/24 12:50 Dose: 20 mg Ondansetron HCl (Ondansetron Hcl 4 Mg/2 Ml Vial) 4 mg IVPUSH Q8H PRN PRN Reason: Nausea and Vomiting Last Admin: 08/09/24 13:01 Dose: 4 mg Oxycodone HCl (Oxycodone Hcl Immed Release 5 Mg Tablet) 5 mg PO Q8H PRN PRN Reason: Pain, Moderate(Pain Scale 4-6) Sodium Chloride (0.9 % Sodium Chloride Flush 3 Ml Syringe) 3 ml IVFLUSH QSHIFT [facility] Spironolactone (Spironolactone 25 Mg Tablet) 25 mg PO DAILY [facility]; Protocol Valsartan (Valsartan 160 Mg Tablet) 160 mg PO BID [facility]; Protocol Home Medications ?Medication ?Instructions ?Recorded ?Confirmed ?Last Taken ?Type diphenhydramine 25 2 tab PO BEDTIME PRN Pain/Sleep 04/26/24 08/09/24 04/25/24 History mg-acetaminophen 500 mg tablet (Tylenol PM Extra Strength) Physical Exam 2 Vital Signs: Vital Signs: Last Vital Signs Temp 97.9 F 08/09/24 12:48 Pulse 67 08/09/24 14:10 Resp 17 08/09/24 14:10 BP 125/89 08/09/24 12:50 Pulse Ox 97 08/09/24 14:10 O2 Del Method Room Air 08/09/24 14:10 BMI result Body Mass Index 33.7 Const: General: no acute distress Nutritional Appearance: obese O rientation/consciousness: patient oriented x3 Limitations: no limitations HEENT: Head: Yes normal to inspection Ears: hearing grossly normal bilaterally Eyes: Sclerae: sclerae normal Pupils: Equal, round and reactive pupils present Neck: Neck: Yes normal visual inspection Chest: Chest palpation & inspection: normal inspection of the chest Resp: Effort & Inspection: normal respiratory effort Auscultation: clear to auscultation bilaterally Cardio: Palpation: normal PMI Rate: regular rate Rhythm: regular rhythm Heart sounds: S1 normal heart sound present, S2 normal heart sound present and no murmurs GI: Palpation (GI): Soft to palpation, Tenderness to palpation present (GI) (diffuse upper abdominal tenderness ) and No hepatosplenomegaly present A uscultation: normal bowel sounds Rectal Exam - Male: Yes deferred Skin: General skin exam: no rashes or lesions noted Neuro: General: patient oriented x3, gait normal and moves all extremities Cranial nerves: Yes Equal, round and reactive pupils present Psych: Appearance: grossly normal Mental Status: mental status grossly normal Results Labs 08/11/24 06:08 08/11/24 06:08 Labs: Short CBC 08/09/24 Range/Units 05:00 WBC 11.3 H (4.8-10.8) X10*3/uL Hgb 11.4 L (14.0-18.0) g/dl Hct 35.6 L (42.0-52.0) % Plt Count 283 (160-400) X10*3/uL BMP 08/09/24 05:00 Sodium 138 Potassium 3.5 Chloride 106 Carbon Dioxide 21 L BUN 18 H Creatinine 1.12 Calcium 9.3 Liver Function 08/09/24 Range/Units 05:00 Total Bilirubin 0.6 (0.0-1.0) mg/dL Direct Bilirubin 0.2 (0.0-0.5) mg/dL AST 27 (5-37) U/L ALT 19 (0-40) U/L Alkaline Phosphatase 90 (39-117) U/L Albumin 3.9 (3.5-5.0) g/dL Assessment and Plan (1) Pancreatic pseudocyst: Status: Acute (2) Acute pancreatitis: Status: Acute Plan 59 YM with paroxysmal AFib on Eliquis, HTN, HFpEF, hx of V-tach s/p ICD in place, HTN, FARHEEN on CPAP, GERD, and alcohol use disorder admitted to [facility] ED on 08/09/24 with?worsening abdominal pain due to recurrent acute pancreatitis. Pt has a hx of ETOH abuse and denies drinking alcohol for the past 1.5 weeks. Labs were significant for leukocytosis of 11.3 and lipase 188 (reduced from previous of 804). Stable normocytic anemia. No significant electrolyte abnormalities. Creatinine 1.12, around baseline. LFTs WNL. Pt was treated with Dilaudid and IVF and admitted to [facility] for management of acute recurrent pancreatitis (likely due to ETOH abuse) complicated by pancreatic pseudocyst Of note serum triglyceride were normal during his recent admission. Abd CT scan showed findings consistent with acute pancreatitis with an enlarging fluid collection in the pancreatic neck measuring 4.2 x 3.8 x 4.0 cm, which may represent a pseudocyst or abscess. This causes compression of the portal vein. Pancreatic pseudocyst may resolve spontaneously with conservative management RECOMMENDATIONS: 1. Agree with IV pain medications and antiemetics 2. Follow serum lipase and check CRP - added to am labs 3. Clear liquid diet once Lipase level is near normal 4. Abd US to look for non-radiopaque gallstones not visible on CT scan 5. Pt advised to discontinue ETOH 6. FU CT scan in 3-4 weeks (as outpatient) to FU on pseudocyst. He may need pseudocyst drainage under EUS guidance or by IR if pseudocyst increases in size or if lack of resolution over the next few months. Pt can FU with Dr Rahman (his primary cone former) after discharge Procedures Date of Service Date of Service: 08/12/24
--- NOTE | 2024-08-09 15:33 | PC.NURSE ---
RN to RN report given to alejandra in overflow.
--- NOTE | 2024-08-09 16:35 | MHC.EDTECH ---
This pct assumed care of Patient at 1515 pm ,vitals taken .
[2024-08-09] MEDS: HYDROmorphone HCl 1 MG/ML SYRINGE 0.5 MG IVPUSH ×2 (16:45→21:28)
[2024-08-09] MEDS: Valsartan 160 MG TABLET PO (21:27)
[2024-08-10] VITALS (7 sets, daily range): BP systolic 130–172; BP diastolic 70–98; PULSE 57–68; RESP 16–20; TEMP 36.4–37.2; O2SAT 94–99
[2024-08-10] MEDS: HYDROmorphone HCl 1 MG/ML SYRINGE 0.5 MG IVPUSH ×4 (03:36→23:46)
[2024-08-10] MEDS: Lactated Ringers 1,000 ML 100 ML IVCONT ×3 (04:37→22:46)
--- NOTE | 2024-08-10 05:15 | PC.NURSE ---
330; Patient reporting 8/10 abdomen pain, bp elevated 165/95 hr 68. Medicated with prn dilaudid per mar. Upon reassessment patient reports no pain, bp rechecked 130/73 hr 66
[2024-08-10] MEDS: Omeprazole 20 MG CAPSULE.DR PO (05:59)
[2024-08-10 06:59] LABS: Anion Gap 14 (12-20); Blood Urea Nitrogen 12 mg/dL (9-16); C Reactive Protein 2.39 mg/dL (< or = 0.50); Calcium 8.9 mg/dL (8.4-10.2); Carbon Dioxide 18 mmol/L (22-29); Chloride 107 mmol/L (96-108); Creatinine Clr Calc Pharmacy 153.2; Estimated Glomerular Filt Rate > 60; Glucose Random 76 mg/dL (60-115); Lipase 152 U/L (8-78); Potassium 3.8 mmol/L (3.3-5.1); Sodium 135 mmol/L (135-145)
[2024-08-10] MEDS: Metoprolol Succinate ER 100 MG TAB.ER.24H PO (08:37)
[2024-08-10] MEDS: Spironolactone 25 MG TABLET PO (08:37)
[2024-08-10] MEDS: Amiodarone HCL 200 MG TABLET PO (08:37)
[2024-08-10] MEDS: Valsartan 160 MG TABLET PO ×2 (08:38→22:43)
[2024-08-10] MEDS: Apixaban 5 MG TABLET PO ×2 (08:38→22:43)
[2024-08-10] MEDS: amLODIPine Besylate 5 MG TABLET PO (08:38)
[2024-08-10] MEDS: ondansetron HCL 4 MG/2 ML VIAL IVPUSH (12:55)
--- NOTE | 2024-08-10 14:47 | P.PNIM_ITS ---
Subjective Subjective Date of Service: 08/10/24 Interval History: Seen and evaluated this morning reports improved pain no nausea Review of Systems Review of Systems: Yes all other systems are reviewed and are negative Physical Exam 2 Vital Signs: Vital Signs: Last Vital Signs Temp 97.9 F 08/10/24 13:49 Pulse 66 08/10/24 13:49 Resp 20 08/10/24 13:49 BP 148/93 H 08/10/24 13:49 Pulse Ox 97 08/10/24 13:49 O2 Del Method Room Air 08/10/24 13:49 BMI result Body Mass Index 33.7 Const: Other: Constitutional : interactive, not in distress Cardiovascular : no JVP, no lower extremity edema Respiratory : bilateral chest movement, not in resp distress Gastrointestinal: soft, lax, mild epigastric tenderness Skin : Warm, Dry Neurological : Alert & oriented , No focal deficit Objective Data Active Medications Acetaminophen (Acetaminophen 325 Mg Tablet) 650 mg PO Q6H PRN PRN Reason: Pain, Mild 1-3,fever,headache Amiodarone HCl (Amiodarone Hcl 200 Mg Tablet) 200 mg PO DAILY [facility] Last Admin: 08/10/24 08:37 Dose: 200 mg Documented By: JAJA Amlodipine Besylate (Amlodipine Besylate 5 Mg Tablet) 5 mg PO DAILY [facility]; Protocol Last Admin: 08/10/24 08:38 Dose: 5 mg Documented By: JAJA Apixaban (Apixaban 5 Mg Tablet) 5 mg PO BID [facility] Last Admin: 08/10/24 08:38 Dose: 5 mg Documented By: JAJA Calcium Carbonate (Calcium Carbonate 750 Mg Tab.Chew) 750 mg PO Q4H PRN PRN Reason: Heartburn Hydromorphone HCl (Hydromorphone Hcl 1 Mg/Ml Syringe) 0.5 mg IVPUSH Q4H PRN; Protocol PRN Reason: Pain, Severe (Pain Scale 7-10) Last Admin: 08/10/24 13:58 Dose: 0.5 mg Documented By: JAJA Lactated Ringer's (Lr) 1,000 mls @ 100 mls/hr IVCONT .Q10H [facility]IGIST Last Admin: 08/10/24 12:58 Dose: 100 mls/hr Documented By: JAJA Magnesium Hydroxide (Milk Of Magnesia 30 Ml Oral.Susp) 30 ml PO DAILY PRN PRN Reason: Constipation Melatonin (Melatonin 3 Mg Tablet) 6 mg PO BEDTIME PRN PRN Reason: Insomnia Metoprolol Succinate (Metoprolol Succinate Er 100 Mg Tab.Er.24h) 100 mg PO DAILY [facility]; Protocol Last Admin: 08/10/24 08:37 Dose: 100 mg Documented By: JAJA Omeprazole (Omeprazole 20 Mg Capsule.Dr) 20 mg PO DAILY@0630 [facility] Last Admin: 08/10/24 05:59 Dose: 20 mg Documented By: HERMELINDO Ondansetron HCl (Ondansetron Hcl 4 Mg/2 Ml Vial) 4 mg IVPUSH Q8H PRN PRN Reason: Nausea and Vomiting Last Admin: 08/10/24 12:55 Dose: 4 mg Documented By: JAJA Oxycodone HCl (Oxycodone Hcl Immed Release 5 Mg Tablet) 5 mg PO Q8H PRN PRN Reason: Pain, Moderate(Pain Scale 4-6) Sodium Chloride (0.9 % Sodium Chloride Flush 3 Ml Syringe) 3 ml IVFLUSH QSHIFT [facility] Last Admin: 08/10/24 08:39 Dose: Not Given Documented By: JAJA Non-Admin Reason: IV Running Spironolactone (Spironolactone 25 Mg Tablet) 25 mg PO DAILY [facility]; Protocol Last Admin: 08/10/24 08:37 Dose: 25 mg Documented By: JAJA Valsartan (Valsartan 160 Mg Tablet) 160 mg PO BID [facility]; Protocol Last Admin: 08/10/24 08:38 Dose: 160 mg Documented By: JAJA Labs 08/09/24 05:00 08/10/24 06:19 Labs: Laboratory Results - last 24 hr 08/10/24 06:19 Hold Purple Top SEE NOTE Anion Gap 14 Estim Creat Clear Calc 153.2 Estimated GFR > 60 Random Glucose 76 Calcium 8.9 C-Reactive Protein 2.39 H Lipase 152 H Assessment and Plan (1) Pancreatic pseudocyst: Status: Acute (2) Acute pancreatitis: Status: Acute (3) Pancreatitis: Status: Acute Plan Pt is a 59-year-old male with a PMH significant for?paroxysmal AFib on Eliquis, HTN, HFpEF, hx of V-tach s/p ICD in place, HTN, FARHEEN on CPAP, GERD, and alcohol use disorder who presents to the ED with?worsening abdominal pain. Pt will be admitted to the hospital for treatment and further evaluation of intractable nausea, vomiting, and abdominal pain secondary to pancreatic pseudocyst. Pancreatic pseudocyst with acute pancreatitis CT showing acute pancreatitis with enlarging fluid collection and pancreatic neck measuring 4.2 x 3.8 x 4.0 cm LFT normal check US to r\o any possible stones IVF, analgesics, and antiemetics Advance diet as tolerated to clears GI input appreciated, repeat images in few weeks and follow with GI, might need aspiration if increasing in size Follow BMP HFrEF Does not appear to be in acute exacerbation Hold diuretics Pt receiving IVF, monitor volume status Resume diuretics as appropriate AFib/V-tach Continue Eliquis, amiodarone GERD Continue PPI HTN Continue anithypertensives FARHEEN CPAP at bedtime Full Code DVT Prophylaxis: On Eliquis Pt will require a hospitalization overnight for treatment of?intractable nausea, vomiting, abdominal pain in the setting pancreatic pseudocyst likely secondary to recent acute pancreatitis. Quality Stroke Does the patient have a stroke diagnosis?: No VTE Prior VTE?: No VTE Risk Level:: Medical - moderate - high VTE Device Contraindication: Treatment Not Indicated VTE Drug Contraindication: N/A - Med Ordered
[2024-08-10] MEDS: 0.9 % Sodium Chloride Flush 3 ML SYRINGE IVFLUSH (22:46)
[2024-08-11] MEDS: Omeprazole 20 MG CAPSULE.DR PO (05:42)
[2024-08-11 05:54] VITALS: BP 143/91; PULSE 65; RESP 18; TEMP 36.4; O2SAT 96
[2024-08-11 06:28] LABS: MANUAL DIFF FLAG NO
[2024-08-11 06:31] LABS: Basophils Absolute Auto 0.1 X10*3/uL (0.0-0.2); Basophils Percent Auto 0.9 % (0-2); Eosinophils Absolute Auto 0.2 X10*3/uL (0.0-0.4); Eosinophils Percent Auto 2.9 % (0-4); Hematocrit 33.5 % (42.0-52.0); Imm Gran Abs Auto 0.02 X10*3/uL (0.00-0.03); Imm Gran Pct Auto 0.2 % (0.0-0.4); Lymphocytes Absolute Auto 1.9 X10*3/uL (1.2-4.9); Lymphocytes Percent Auto 23.1 % (20-40); Mean Corpuscular HGB Conc 32.8 g/dl (31.0-36.0); Mean Corpuscular Hemoglobin 27.3 pg (27.0-33.0); Mean Corpuscular Volume 83.1 fL (80.0-98.0); Mean Platelet Volume 10.9 fL (9.4-12.4); Monocytes Absolute Auto 0.8 X10*3/uL (0.1-1.2); Monocytes Percent Auto 10.1 % (2-11); Neutrophils Absolute Auto 5.2 x10*3/uL (2.0-8.3); Neutrophils Percent Auto 62.8 % (45-73); Platelet Count 253 X10*3/uL (160-400); Red Blood Count 4.03 X10*6/uL (4.60-5.80); Red Cell Distribution Width 14.3 % (11.0-16.0); White Blood Count 8.2 X10*3/uL (4.8-10.8)
[2024-08-11 06:50] LABS: Anion Gap 11 (12-20); Blood Urea Nitrogen 8 mg/dL (9-16); C Reactive Protein 2.11 mg/dL (< or = 0.50); Carbon Dioxide 24 mmol/L (22-29); Chloride 105 mmol/L (96-108); Creatinine Clr Calc Pharmacy 145.4; Estimated Glomerular Filt Rate > 60; Glucose Random 98 mg/dL (60-115); Lipase 90 U/L (8-78); Potassium 3.4 mmol/L (3.3-5.1); Sodium 137 mmol/L (135-145)
[2024-08-11] MEDS: HYDROmorphone HCl 1 MG/ML SYRINGE 0.5 MG IVPUSH (07:30)
[2024-08-11 07:32] VITALS: BP 130/81; PULSE 65; RESP 18; TEMP 36.6; O2SAT 96
[2024-08-11] MEDS: Lactated Ringers 1,000 ML 100 ML IVCONT (07:33)
[2024-08-11] MEDS: Spironolactone 25 MG TABLET PO (07:34)
[2024-08-11] MEDS: Amiodarone HCL 200 MG TABLET PO (07:34)
[2024-08-11] MEDS: Apixaban 5 MG TABLET PO ×2 (07:34→20:18)
[2024-08-11] MEDS: Valsartan 160 MG TABLET PO ×2 (07:34→20:18)
[2024-08-11] MEDS: Metoprolol Succinate ER 100 MG TAB.ER.24H PO (07:34)
[2024-08-11] MEDS: amLODIPine Besylate 5 MG TABLET PO (07:35)
--- NOTE | 2024-08-11 13:30 | HO.PM.IMPN ---
Subjective Subjective Date of Service: 08/11/24 Interval History: Seen and evaluated this morning having nausea and pain on clears no vomiting Review of Systems Review of Systems: Yes all other systems are reviewed and are negative Physical Exam Vital Signs: Vital Signs: Last Vital Signs Temp 97.8 F 08/11/24 07:32 Pulse 65 08/11/24 07:32 Resp 18 08/11/24 07:32 BP 130/81 08/11/24 07:32 Pulse Ox 96 08/11/24 07:32 O2 Del Method Room Air 08/11/24 07:32 BMI result Body Mass Index 33.7 Const: Other: Constitutional : interactive, not in distress Cardiovascular : no JVP, no lower extremity edema Respiratory : bilateral chest movement, not in resp distress Gastrointestinal: soft, lax, mild epigastric tenderness Skin : Warm, Dry Neurological : Alert & oriented , No focal deficit Objective Data Active Medications Acetaminophen (Acetaminophen 325 Mg Tablet) 650 mg PO Q6H PRN PRN Reason: Pain, Mild 1-3,fever,headache Amiodarone HCl (Amiodarone Hcl 200 Mg Tablet) 200 mg PO DAILY [facility] Last Admin: 08/11/24 07:34 Dose: 200 mg Documented By: JAJA Amlodipine Besylate (Amlodipine Besylate 5 Mg Tablet) 5 mg PO DAILY [facility]; Protocol Last Admin: 08/11/24 07:35 Dose: 5 mg Documented By: JAJA Apixaban (Apixaban 5 Mg Tablet) 5 mg PO BID [facility] Last Admin: 08/11/24 07:34 Dose: 5 mg Documented By: JAJA Calcium Carbonate (Calcium Carbonate 750 Mg Tab.Chew) 750 mg PO Q4H PRN PRN Reason: Heartburn Hydromorphone HCl (Hydromorphone Hcl 1 Mg/Ml Syringe) 0.5 mg IVPUSH Q4H PRN; Protocol PRN Reason: Pain, Severe (Pain Scale 7-10) Last Admin: 08/11/24 07:30 Dose: 0.5 mg Documented By: JAJA Magnesium Hydroxide (Milk Of Magnesia 30 Ml Oral.Susp) 30 ml PO DAILY PRN PRN Reason: Constipation Melatonin (Melatonin 3 Mg Tablet) 6 mg PO BEDTIME PRN PRN Reason: Insomnia Metoprolol Succinate (Metoprolol Succinate Er 100 Mg Tab.Er.24h) 100 mg PO DAILY [facility]; Protocol Last Admin: 08/11/24 07:34 Dose: 100 mg Documented By: JAJA Omeprazole (Omeprazole 20 Mg Capsule.Dr) 20 mg PO DAILY@0630 [facility] Last Admin: 08/11/24 05:42 Dose: 20 mg Documented By: CHAVA Ondansetron HCl (Ondansetron Hcl 4 Mg/2 Ml Vial) 4 mg IVPUSH Q8H PRN PRN Reason: Nausea and Vomiting Last Admin: 08/10/24 12:55 Dose: 4 mg Documented By: JAJA Oxycodone HCl (Oxycodone Hcl Immed Release 5 Mg Tablet) 5 mg PO Q8H PRN PRN Reason: Pain, Moderate(Pain Scale 4-6) Sodium Chloride (0.9 % Sodium Chloride Flush 3 Ml Syringe) 3 ml IVFLUSH QSHIFT [facility] Last Admin: 08/11/24 07:36 Dose: Not Given Documented By: JAAJ Non-Admin Reason: IV Running Spironolactone (Spironolactone 25 Mg Tablet) 25 mg PO DAILY [facility]; Protocol Last Admin: 08/11/24 07:34 Dose: 25 mg Documented By: JAJA Valsartan (Valsartan 160 Mg Tablet) 160 mg PO BID [facility]; Protocol Last Admin: 08/11/24 07:34 Dose: 160 mg Documented By: JAJA Labs 08/11/24 06:08 08/11/24 06:08 Labs: Laboratory Results - last 24 hr 08/11/24 06:08 MCV 83.1 MCH 27.3 MCHC 32.8 RDW 14.3 Plt Count 253 MPV 10.9 Immature Gran % (Auto) 0.2 Neut % (Auto) 62.8 Lymph % (Auto) 23.1 [place] % (Auto) 10.1 Eos % (Auto) 2.9 Baso % (Auto) 0.9 Lymph # (Auto) 1.9 [place] # (Auto) 0.8 Eos # (Auto) 0.2 Baso # (Auto) 0.1 Abs Immat Gran (auto) 0.02 Absolute Neuts (auto) 5.2 Absolute Nucleated RBC 0.000 Nucleated RBC % (auto) 0.0 Anion Gap 11 L Estim Creat Clear Calc 145.4 Estimated GFR > 60 Random Glucose 98 Calcium 9.0 C-Reactive Protein 2.11 H Lipase 90 H Assessment and Plan (1) Pancreatic pseudocyst: Status: Acute (2) Acute pancreatitis: Status: Acute (3) Pancreatitis: Status: Acute Plan Pt is a 59-year-old male with a PMH significant for?paroxysmal AFib on Eliquis, HTN, HFpEF, hx of V-tach s/p ICD in place, HTN, FARHEEN on CPAP, GERD, and alcohol use disorder who presents to the ED with?worsening abdominal pain. Pt will be admitted to the hospital for treatment and further evaluation of intractable nausea, vomiting, and abdominal pain secondary to pancreatic pseudocyst. Pancreatic pseudocyst with acute pancreatitis CT showing acute pancreatitis with enlarging fluid collection and pancreatic neck measuring 4.2 x 3.8 x 4.0 cm LFT normal US to negative for possible stones IVF, analgesics, and antiemetics Advance diet as tolerated to clears GI input appreciated, repeat images in few weeks and follow with GI, might need aspiration if increasing in size Follow BMP HFrEF Does not appear to be in acute exacerbation Hold diuretics Pt receiving IVF, monitor volume status Resume diuretics as appropriate AFib/V-tach Continue Eliquis, amiodarone GERD Continue PPI HTN Continue anithypertensives FARHEEN CPAP at bedtime Full Code DVT Prophylaxis: On Eliquis Pt will require a hospitalization overnight for treatment of?intractable nausea, vomiting, abdominal pain in the setting pancreatic pseudocyst likely secondary to recent acute pancreatitis. Quality Stroke Does the patient have a stroke diagnosis?: No VTE Prior VTE?: No VTE Risk Level:: Medical - moderate - high VTE Device Contraindication: Treatment Not Indicated VTE Drug Contraindication: N/A - Med Ordered
[2024-08-11 13:46] VITALS: BP 114/60; PULSE 61; RESP 20; TEMP 36.4; O2SAT 99
[2024-08-11 16:00] VITALS: BP 131/73; PULSE 64; RESP 18; TEMP 37.2; O2SAT 96
[2024-08-11] MEDS: 0.9 % Sodium Chloride Flush 3 ML SYRINGE IVFLUSH (20:23)
[2024-08-11 21:46] VITALS: BP 132/71; PULSE 60; RESP 18; TEMP 36.2; O2SAT 98
[2024-08-12] MEDS: HYDROmorphone HCl 1 MG/ML SYRINGE 0.5 MG IVPUSH (00:51)
[2024-08-12] MEDS: oxyCODONE HCl Immed Release 5 MG TABLET PO (04:32)
[2024-08-12] MEDS: Omeprazole 20 MG CAPSULE.DR PO (05:47)
[2024-08-12 06:00] VITALS: BP 135/82; PULSE 77; RESP 16; TEMP 36.4; O2SAT 97
[2024-08-12 07:11] VITALS: BP 129/88; PULSE 54; RESP 18; TEMP 37.1; O2SAT 95
[2024-08-12] MEDS: 0.9 % Sodium Chloride Flush 3 ML SYRINGE IVFLUSH (08:14)
[2024-08-12] MEDS: Valsartan 160 MG TABLET PO (08:15)
[2024-08-12] MEDS: amLODIPine Besylate 5 MG TABLET PO (08:15)
[2024-08-12] MEDS: Apixaban 5 MG TABLET PO (08:15)
[2024-08-12] MEDS: Spironolactone 25 MG TABLET PO (08:15)
[2024-08-12] MEDS: Amiodarone HCL 200 MG TABLET PO (08:15)
--- NOTE | 2024-08-12 12:49 | PM.DS ---
DS: Providers Provider Date of Service: 08/12/24 Date of admission: 08/09/24 12:09 Date of discharge: 08/12/24 Primary care physician: YESY Martinez Consults: 08/09/24 09:03 Consult to Gastroenterology Stat Consulting Provider: Zeus Jimenez Reason for consultation: pancreatic pseudoyst Has provider been notified: Yes DS: Diagnosis Discharge Diagnosis (1) Pancreatic pseudocyst: Status: Acute (2) Acute pancreatitis: Status: Acute (3) Pancreatitis: Status: Resolved DS: Summary Hospital Course Hospital Course: Admission note HPI Pt is a 59-year-old male with a PMH significant for?paroxysmal AFib on Eliquis, HTN, HFpEF, hx of V-tach s/p ICD in place, HTN, FARHEEN on CPAP, GERD, and alcohol use disorder who presents to the ED with?worsening abdominal pain. Pt was recently discharged from the hospital 5 days prior on 08/04 after being admitted and treated for acute pancreatitis. Pt reports initially did well without pain or nausea while adhering to a liquid diet. Yesterday pt reported eating a slice of pizza and some chicken toquitos. Soon after developed worsening LUQ abdominal pain with nausea and vomiting. Pain was constant, sharp and stabbing, and nonradiating. Was up all night due to pain. Pt denies drinking alcohol since discharge. No fever or chills. Denies chest pain/pressure, palpitations. No shortness a breath or difficulty breathing. In the ED pt's vitals stable and largely WNL except hypertension of 41/67. Labs were significant for leukocytosis of 11.3 and lipase 188 (reduced from previous of 804). Stable normocytic anemia. No significant electrolyte abnormalities. Creatinine 1.12, around baseline. LFTs WNL. CT?of abdomen and pelvis showed findings consistent of acute pancreatitis with enlarging fluid collection 4.2 x 3.8 x 4.0 cm likely pseudocyst or abscess, causing compression on portal vein. Pt was treated with Dilaudid and IVF. Pt will be admitted to the hospital for treatment and further evaluation of intractable nausea, vomiting, and abdominal pain secondary to pancreatic pseudocyst. Hospital course The patient was admitted for evaluation and treatment of Pancreatic pseudocyst with acute pancreatitis as he presented with abdominal pain. CT showing acute pancreatitis with enlarging fluid collection and pancreatic neck measuring 4.2 x 3.8 x 4.0 cm LFT normal. US to negative for possible stones. He was treated with IV fluids, pain medications and antiemetics with fair response as he became able to tolerate PO and advance to regular diet (low fat) before discharge. Lipase trended down since admission. He was also evaluated by GI team who recommended outpatient follow up to repeat images in few weeks and follow with dr Rahman as he might need aspiration if pseudocyst increasing in size. Will be discharged on Zofran and Oxycodone with advice to advance diet slowly. Discharge plan Advance your diet slowly over the next week Avoid fatty and fried food Zofran as needed for nausea Oxycodone as needed for pain Follow up with dr Rahman in 2-4 weeks for repeat of images to follow on pseudocyst Time Attestation Discharge Coordination Time (in mins): 41 Quality: Safe Use of Opioids Does Pt have an Active Cancer Diagnosis on the Problem List?: No Quality: Stroke Does the patient have a stroke diagnosis?: No Physical Exam Vital Signs: Vital Signs: Last Vital Signs Temp 98.8 F 08/12/24 07:11 Pulse 54 08/12/24 07:11 Resp 18 08/12/24 07:11 BP 129/88 08/12/24 07:11 Pulse Ox 95 08/12/24 07:11 O2 Del Method Room Air 08/12/24 07:11 BMI result Body Mass Index 33.7 Const: Other: Constitutional : interactive, not in distress Cardiovascular : no JVP, no lower extremity edema Respiratory : bilateral chest movement, not in resp distress Gastrointestinal: soft, lax, no tenderness Skin : Warm, Dry Neurological : Alert & oriented , No focal deficit DS: Data Data Completed and Pending Completed studies during hospitalization [Text1]: Procedures Assistance with Respiratory Ventilation, Less than 24 Consecutive Hours, Continuous Positive Airway Pressure (02/24/24) Detoxification Services for Substance Abuse Treatment (01/24/21) Excision of Duodenum, Via Natural or Artificial Opening Endoscopic, Diagnostic (05/05/24) Excision of Stomach, Pylorus, Via Natural or Artificial Opening Endoscopic, Diagnostic (05/05/24) Confucianist of Cardiac Rhythm, Single (05/17/21) Transfusion of Nonautologous Red Blood Cells into Peripheral Vein, Percutaneous Approach (04/26/24) Imaging CT scan - abdomen: Radiologist's impression: ITS Impressions Abdomen/Pelvis CT 08/09/24 07:44 IMPRESSION: Again seen are findings consistent with acute pancreatitis. There is an enlarging fluid collection in the pancreatic neck measuring 4.2 x 3.8 x 4.0 cm, which may represent a pseudocyst or abscess. This causes compression of the portal vein. Electronically signed by: Ace Saldana MD 08/09/2024 08:14 AM [facility] Discharge Plan Discharge Anticipated Discharge Date/Time: 08/12/24 12:38 Patient Disposition: Home, Self-Care Discharge Diagnosis: Acute pancreatitis Pancreatic pseudocyst Referrals: Lisa Heard FNP [Primary Care Provider] - 1 Week Discharge Medications: New ondansetron 4 mg tablet,disintegrating 4 mg PO Q8H PRN (Reason: nausea and vomiting) Qty: 20 1RF oxycodone 5 mg tablet 5 mg PO Q8H PRN (Reason: pain (scale score 7-10)) Qty: 15 0RF Rx Instructions: Partial Fill upon patient request. Continued (DME) blood pressure monitor [Blood Pressure Kit] Kit See Rx Instructions .Route Qty: 1 0RF Rx Instructions: As directed Eliquis 5 mg tablet 5 mg PO BID 90 Days Qty: 180 1RF amiodarone 200 mg tablet 200 mg PO DAILY Qty: 90 3RF amlodipine 5 mg tablet 5 mg PO DAILY Qty: 90 0RF omeprazole 20 mg capsule,delayed release(DR/EC) 20 mg PO QAM Qty: 90 3RF oxycodone 5 mg tablet 5 mg PO Q8H PRN (Reason: pain) Qty: 9 0RF Rx Instructions: Partial Fill upon patient request. diphenhydramine-acetaminophen [Tylenol PM Extra Strength] 25-500 mg Tablet 2 tab PO BEDTIME PRN (Reason: Pain/Sleep) Jardiance 10 mg Tablet 10 mg PO DAILY Qty: 90 0RF furosemide 40 mg tablet 40 mg PO DAILY Qty: 30 0RF spironolactone 25 mg Tablet 25 mg PO DAILY Qty: 90 0RF Protocol: Hold for SBP< HOLD for SBP < : 90 valsartan 160 mg Tablet 160 mg PO BID Qty: 180 0RF Protocol: Hold for SBP< HOLD for SBP < : 90 (DME) Blood Pressure Cuff Misc See Rx Instructions .Route Qty: 1 0RF Rx Instructions: As directed metoprolol succinate [Toprol XL] 100 mg tablet extended release 24 hr 100 mg PO DAILY Qty: 90 3RF Discharge Orders: Discharge Order (Routine); Ordered 08/12/24 Ordered By: Magda Benedict Diet: Advance to usual diet Activity on Discharge: As tolerated Stand Alone Forms: Patient Portal Discharge page Print Language: [place] Care Plan Goals: Advance your diet slowly over the next week Avoid fatty and fried food Zofran as needed for nausea Oxycodone as needed for pain Follow up with dr Rahman in 2-4 weeks for repeat of images to follow on pseudocyst Health Concerns: Acute pancreatitis Pancreatic cyst Plan of Treatment: Nausea and pain medicaitons GI follow up Assessment: as above Patient Instructions: Pancreatic Pseudocyst (DC)
== END 2024-08-12 13:28 | disposition home or self-care (01) | DRG 439 ==
LOC: HO.ED 09:17 → HO.EDOVER 12:22 → HO.S3 19:40
PROVIDERS: Admitting Provider Student in an Organized Health Care Education/Training Program; Emergency Provider Emergency Medicine; PCP Nurse Practitioner Family; Visit Provider Student in an Organized Health Care Education/Training Program
DX: K85.90 Acute pancreatitis without necrosis or infection, unspecified (principal); I47.20 Ventricular tachycardia, unspecified; K86.3 Pseudocyst of pancreas; I50.22 Chronic systolic (congestive) heart failure; G47.33 Obstructive sleep apnea (adult) (pediatric); I48.0 Paroxysmal atrial fibrillation; D64.9 Anemia, unspecified; F10.11 Alcohol abuse, in remission; I11.0 Hypertensive heart disease with heart failure; Z95.810 Presence of automatic (implantable) cardiac defibrillator; Z79.01 Long term (current) use of anticoagulants; Z79.899 Other long term (current) drug therapy
CPT/HCPCS: 36415; 74177; 76705; 80048; 80076; 83690; 85025; 86140; 99285; J1171; J2405; J7120; Q9967

== ENCOUNTER → 2024-08-09 06:54 | Outpatient (BNV) | payer MEDICARE, MEDICAID, SELFPAY | PROVIDERS: Emergency Provider Emergency Medicine; Visit Provider Radiology Diagnostic Radiology | DX: R10.30 Lower abdominal pain, unspecified (principal) | CPT/HCPCS: 74177 ==

== ENCOUNTER 2024-08-09 12:09 | Outpatient (BNV) | payer MEDICARE, MEDICAID, SELFPAY | END 2024-08-10 15:47 | PROVIDERS: Admitting Provider Student in an Organized Health Care Education/Training Program; Emergency Provider Emergency Medicine; Visit Provider Radiology Diagnostic Radiology | DX: K86.3 Pseudocyst of pancreas (principal) | CPT/HCPCS: 76705 ==

== ENCOUNTER → 2024-08-09 12:09 | Outpatient (BNV) | payer MEDICARE, MEDICAID, SELFPAY | PROVIDERS: Admitting Provider Student in an Organized Health Care Education/Training Program; Emergency Provider Emergency Medicine; PCP Nurse Practitioner Family; Visit Provider Internal Medicine Gastroenterology | DX: K86.3 Pseudocyst of pancreas (principal); K85.90 Acute pancreatitis without necrosis or infection, unspecified | CPT/HCPCS: 99222 ==

== ENCOUNTER → 2024-08-09 12:09 | Outpatient (BNV) | payer MEDICARE, MEDICAID, SELFPAY | PROVIDERS: Admitting Provider Student in an Organized Health Care Education/Training Program; Emergency Provider Emergency Medicine; Visit Provider Student in an Organized Health Care Education/Training Program | DX: K86.3 Pseudocyst of pancreas (principal); K85.90 Acute pancreatitis without necrosis or infection, unspecified; K85.20 Alcohol induced acute pancreatitis without necrosis or infection | CPT/HCPCS: 99232; 99239 ==

== ENCOUNTER → 2024-08-12 23:59 | Outpatient (BNV) | payer MEDICARE, MEDICAID, SELFPAY ==
--- NOTE | 2024-08-18 12:20 | MHC.OFFVIS ---
Intake Visit Reasons: Remote HF monitoring- [employer]tr[employer] Allergies No Known Allergies Allergy (Verified 08/09/24 04:46) [facility] Medical History (Updated 08/12/24 @ 12:49 by Magda Benedict MD) Acute pancreatitis Acute heart failure with preserved ejection fraction (HFpEF) Anemia Acute exacerbation of CHF (congestive heart failure) Morbid obesity Gastrointestinal bleeding History of cardioversion FARHEEN on CPAP Alcohol abuse HTN (hypertension) (HFpEF) heart failure with preserved ejection fraction Surgical History History of cardiac radiofrequency ablation History of esophagogastroduodenoscopy (EGD) Hx of colonoscopy Status post ORIF of fracture of ankle S/P hip replacement Family History Mother HTN (hypertension) Diabetes mellitus Father Diabetes mellitus HTN (hypertension) Maternal Uncle Colon cancer Social History Household Members: Significant Other Household Members Other:: GF, daughter Housing: Apartment Are you a primary care team coordinator scheduler to a significant other at home: No Do you presently have visiting nurse or other home services: No Alcohol intake: former Comment: pt refusing high falls measures exc socks Patient Tobacco Use Status: Never used Tobacco e-Cigarette/Vaping Use: Never Used Second Hand Smoke Exposure: No Substance Use Type: Marijuana Advance Directives Date on File: 01/25/21 service: No Current occupational status: retired Current occupation: rt handed Cognitive needs: No Hearing needs: No Vision needs: No Office Procedures Cardiac Device Check Cardiac Device Check Details: Date of service- 08/12/2024; based on impedance data and physiological variables, there is no evidence of worsening congestive heart failure. [id number] Cardiac Device Interrogation, cardio physiologic monitor Procedure code (CPT) selection complete Assessment & Plan Assessment & Plan (1) ICD (implantable cardioverter-defibrillator) in place: Code(s): Z95.810 - Presence of automatic (implantable) cardiac defibrillator Category: Medical (2) NICM (nonischemic cardiomyopathy): Code(s): I42.8 - Other cardiomyopathies Category: Medical Plan x Coding Level of Care Code Procedure Only Diagnoses ICD (implantable cardioverter-defibrillator) in place Z95.810 NICM (nonischemic cardiomyopathy) I42.8 CPT Codes Cardiac Device Check - Cardiac Device 15: [id number] Cardiac Device Interrogation, cardio physiologic monitor ([id number])
== END ==
PROVIDERS: PCP Nurse Practitioner Family; Visit Provider Internal Medicine
DX: I42.8 Other cardiomyopathies (principal); Z95.810 Presence of automatic (implantable) cardiac defibrillator
CPT/HCPCS: 93297

== ENCOUNTER → 2024-08-12 23:59 | Outpatient (BNV) | payer MEDICARE, MEDICAID, SELFPAY ==
--- NOTE | 2024-08-18 12:21 | MHC.OFFVIS ---
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 Allergies No Known Allergies Allergy (Verified 08/09/24 04:46) [facility] Medical History (Updated 08/12/24 @ 12:49 by Magda Benedict MD) Acute pancreatitis Acute heart failure with preserved ejection fraction (HFpEF) Anemia Acute exacerbation of CHF (congestive heart failure) Morbid obesity Gastrointestinal bleeding History of cardioversion FARHEEN on CPAP Alcohol abuse HTN (hypertension) (HFpEF) heart failure with preserved ejection fraction Surgical History History of cardiac radiofrequency ablation History of esophagogastroduodenoscopy (EGD) Hx of colonoscopy Status post ORIF of fracture of ankle S/P hip replacement Family History Mother HTN (hypertension) Diabetes mellitus Father Diabetes mellitus HTN (hypertension) Maternal Uncle Colon cancer Social History Household Members: Significant Other Household Members Other:: GF, daughter Housing: Apartment Are you a primary healthcare consultant to a significant other at home: No Do you presently have visiting nurse or other home services: No Alcohol intake: former Comment: pt refusing high falls measures exc socks Patient Tobacco Use Status: Never used Tobacco e-Cigarette/Vaping Use: Never Used Second Hand Smoke Exposure: No Substance Use Type: Marijuana Advance Directives Date on File: 01/25/21 service: No Current occupational status: retired Current occupation: rt handed Cognitive needs: No Hearing needs: No Vision needs: No Office Procedures Cardiac Device Check Cardiac Device Check Details: Date of service 08/12/2024; Battery life >12 years; normal lead parameters; no treated VT/VF; normal ICD function. [id number] Cardiac Interrogation, implant defibrillator w/interim Procedure code (CPT) selection complete Assessment & Plan Assessment & Plan (1) ICD (implantable cardioverter-defibrillator) in place: Code(s): Z95.810 - Presence of automatic (implantable) cardiac defibrillator Category: Medical (2) NICM (nonischemic cardiomyopathy): Code(s): I42.8 - Other cardiomyopathies Category: Medical Plan x Coding Level of Care Code Procedure Only Diagnoses ICD (implantable cardioverter-defibrillator) in place Z95.810 NICM (nonischemic cardiomyopathy) I42.8 CPT Codes Cardiac Device Check - Cardiac Device 13: [id number] Cardiac Interrogation, implant defibrillator w/interim ([id number])
== END ==
PROVIDERS: PCP Nurse Practitioner Family; Visit Provider Internal Medicine
DX: I42.8 Other cardiomyopathies (principal); Z95.810 Presence of automatic (implantable) cardiac defibrillator
CPT/HCPCS: 93295

== ENCOUNTER 2024-08-13 13:12 | Outpatient (AMB) | payer OTHER, SELFPAY ==
[2024-08-13 13:19] VITALS: BP 122/78; PULSE 72; BMI 33.6
--- NOTE | 2024-08-13 13:19 | A.OFFVIS_ITS ---
Vital Signs 08/13/24 13:19 Height 6 ft 3 in Weight 268 lb 15.423 oz BMI 33.6 BP 122/78 Blood Pressure Location Lt brachial Position Sitting Pulse 72 Pulse Source Monitor Intake Visit Reasons: 3 mth f/up Allergies No Known Allergies Allergy (Verified 08/09/24 04:46) Medication List - Last Reconciled 08/13/24 by Fabricio Chaudhary MD amiodarone 200 mg PO DAILY amlodipine 5 mg PO DAILY apixaban (Eliquis) 5 mg PO BID 90 days blood pressure monitor (Blood Pressure Kit) As directed empagliflozin (Jardiance) 10 mg PO DAILY furosemide 40 mg PO DAILY metoprolol succinate ER (Toprol XL) 100 mg PO DAILY miscellaneous medical supply (Blood Pressure Cuff) As directed omeprazole 20 mg PO QAM ondansetron 4 mg PO Q8H PRN oxycodone 5 mg PO Q8H PRN spironolactone 25 mg See Protocol PO DAILY valsartan 160 mg See Protocol PO BID HPI Comments Details: Nitesh returns for follow-up regarding atrial fibrillation and cardiomyopathy. Complicated history. History of atrial fibrillation and prior cardioversions. He was maintained on flecainide. In 2022, he was in [place] during camping for the summer time. At that time, it seems he was drinking a lot of alcohol. Following that, presyncopal type symptoms leading to emergent medical care. Apparently, he was in atrial fibrillation with rapid rate that degenerated into ventricular tachycardia type rhythm. That required emergent cardioversion. Eventually, admitted to local hospital where he underwent cardiac catheterization as well as ICD placement. In 2023, he has had multiple hospitalizations for GI bleeding and has been transferred to [facility]. He is still on anticoagulation. He is still drinking but not as much as before. After this, he underwent atrial fibrillation ablation. He is still taking amiodarone/Eliquis. Most recently, he has had yet another hospitalization for pancreatic issues. [facility] Medical History (Updated 08/12/24 @ 12:49 by Magda Benedict MD) Acute pancreatitis Acute heart failure with preserved ejection fraction (HFpEF) Anemia Acute exacerbation of CHF (congestive heart failure) Morbid obesity Gastrointestinal bleeding History of cardioversion FARHEEN on CPAP Alcohol abuse HTN (hypertension) (HFpEF) heart failure with preserved ejection fraction Surgical History History of cardiac radiofrequency ablation History of esophagogastroduodenoscopy (EGD) Hx of colonoscopy Status post ORIF of fracture of ankle S/P hip replacement Family History Mother HTN (hypertension) Diabetes mellitus Father Diabetes mellitus HTN (hypertension) Maternal Uncle Colon cancer Social History Household Members: Significant Other Household Members Other:: GF, daughter Housing: Apartment Are you a primary health care law specialist to a significant other at home: No Do you presently have visiting nurse or other home services: No Alcohol intake: former Comment: pt refusing high falls measures exc socks Patient Tobacco Use Status: Never used Tobacco e-Cigarette/Vaping Use: Never Used Second Hand Smoke Exposure: No Substance Use Type: Marijuana Advance Directives Date on File: 01/25/21 service: No Current occupational status: retired Current occupation: rt handed Cognitive needs: No Hearing needs: No Vision needs: No Review of Systems Const Denies weakness ENT Denies dizziness Card Denies chest pain, Denies chest pain with activity, Denies syncope, Denies rapid heart rate, Denies pedal edema, Denies edema, Denies leg edema, Denies lightheadedness, Denies palpitations, Denies dyspnea, Denies dyspnea on exertion and Denies orthopnea Resp Denies cough, Denies dyspnea and Denies dyspnea on exertion GI Denies hematochezia and Denies change in stool character Musc Denies abnormal gait, Denies muscle cramps, Denies muscle weakness, Denies numbness, Denies radiating pain into limb and Denies tingling Neuro Denies abnormal gait, Denies dizziness, Denies syncope, Denies numbness, Denies tingling and Denies weakness Endo Denies palpitations Physical Exam Vital Signs: Last Vital Signs Pulse 72 08/13/24 13:19 BP 122/78 08/13/24 13:19 BMI result Body Mass Index 33.6 Const General: comfortable and no acute distress Orientation/consciousness: patient oriented x3 HEENT Other: Unremarkable Head: Yes normal to inspection Neck Neck: Yes normal visual inspection Chest Chest palpation & inspection: normal inspection of the chest Resp Auscultation: clear to auscultation bilaterally Cardio Palpation: normal PMI Heart sounds: S1 normal heart sound present, S2 normal heart sound present, no gallops, no murmurs and no rubs GI Palpation (GI): Soft to palpation Back/Spine/Pelvis Other: unremarkable Skin General skin exam: no rashes or lesions noted Neuro General: patient oriented x3 Extrem General: Yes normal to inspection Psych Mental Status: mental status grossly normal Office Procedures EKG Details: EKG with underlying sinus rhythm at 72/Min; no significant ST-T changes; [place] [address]-[id number], Complete Assessment & Plan Assessment & Plan (1) PAF (paroxysmal atrial fibrillation): Code(s): I48.0 - Paroxysmal atrial fibrillation Category: Medical Plan: Status post pulmonary vein isolation for atrial fibrillation from 04/2024. He has remained in sinus rhythm. Can stop the amiodarone. Discussed about this today. With regard to anticoagulation, multiple episodes of GI bleeding last year. As he has not had any further atrial fibrillation, we can stop it in monitor ICD for any AFib issues. If indeed there is recurrent atrial fibrillation, consider Watchman device. Discussed with EP about this and in agreement. Continue beta-blockers. (2) NICM (nonischemic cardiomyopathy): Code(s): I42.8 - Other cardiomyopathies Category: Medical Plan: In the past, suspected tachycardia induced cardiomyopathy. Then recovered EF. Per [place] records, apparently apical akinesis. LVEF was 64%. Cardiac catheterization 02/2023 with normal coronary arteries. Cardiac MRI with LVEF of 55%. No wall motion abnormalities. Subendocardial delayed enhancement in basal to mid anterolateral segments suggesting fibrosis from possible prior myocarditis. Other findings suggestive of diffuse myocardial fibrosis. In the recent echocardiogram, LVEF is 50-55%. Advanced diastolic dysfunction. Severe pulmonary hypertension. Continue diuretics, Jardiance, valsartan, spironolactone. (3) Ventricular tachycardia: Code(s): I47.20 - Ventricular tachycardia, unspecified Category: Medical Plan: Per [place] records, it seems he was in atrial fibrillation with very rapid rate and then started having QRS widening. Hence not clear if it is just atrial fibrillation or truly VT. Now status post ICD. He has not had any VT on ICD monitoring. (4) Alcohol abuse: Code(s): F10.10 - Alcohol abuse, uncomplicated Category: Social Hx Plan: He is still drinking but has cut back a lot apparently. Ideally, should stopped but he may not. (5) Morbid obesity: Code(s): E66.01 - Morbid (severe) obesity due to excess calories Category: Medical Plan: He is clearly obese. With regard to diet, less than ideal. He states that he just likes to eat a lot. Unfortunately, there is likely to make his cardiovascular issues worse and he is aware of it. (6) FARHEEN on CPAP: Code(s): G47.33 - Obstructive sleep apnea (adult) (pediatric); Z99.89 - Dependence on other enabling machines and devices Category: Medical Plan: Continue CPAP. Orders: Orders CA echo transthoracic complete Today I50.30 - Unspecified diastolic (congestive) heart failure Medications: Discontinued amiodarone Discontinued Reason: Doctor's Order 200 mg PO DAILY 90 tabs 3RF apixaban (Eliquis) Discontinued Reason: Doctor's Order 5 mg PO BID 90 days 180 tabs 1RF Coding Level of Care Code Est Pt Level 4 (82022) Diagnoses PAF (paroxysmal atrial fibrillation) I48.0 NICM (nonischemic cardiomyopathy) I42.8 Ventricular tachycardia I47.20 Alcohol abuse F10.10 Morbid obesity E66.01 FARHEEN on CPAP G47.33; Z99.89 CPT Codes EKG - CPT: 80013-[id number], Complete ([id number])
--- OUTSIDE RECORDS SUMMARY | 2024-08-13 14:11 | XMS_ITS | Encounter Summary ---
Author Organization [facility] Address [address] [place] [address] Care Team Providers Care Environmental Geologist Name Role Phone Unavailable Primary Care Provider Unavailabl e Reason for Visit * Reason Comments Medication Refill Encounter Details Date Type Department Care Team (Late st Contact Info) Description 04/14/2023 Refill [facility] [place] [address] [facility], [address], [place] [id number] Santi Mirza MD [address] [id number] Medication Refill Social History Tobacco Use Types Packs/Day Years Used Date Smoking Tobacco: Never Assessed Alcohol Use Standard Drinks/Week Comments Yes 10 (1 standard drink = 0.6 oz pure alcohol) Pt reports 5-10-hx of withdrawal AUDIT-C Answer Date Recorded Q1: How often do you have a drink containing alcohol? 4 or more times a week 02/19/2023 Q2: How many drinks containi ng alcohol do you have on a typical day when you are drinking? 5 or 6 Q3: How often do you have si x or more drinks on one occasion? Daily or almost daily 02/19/2023 PHQ-2 Answer Date Recorded PHQ-2 Total Score 0 02/19/2023 Housing Stability Answer Date Recorded What is your living situation today? I have a [facility] place to live 02/20/2023 Interpersonal Safety Answer Date Record ed Is there anyone in your life that is hurting or threatening you in anyway? Not on file 02/19/2023 Physical Indicators of Abuse No evidence of phys ical abuse 02/19/2023 Sex and Gender Information Value Date Recorded Sex Assigned at Not on file Legal Sex Male 10:15 PM EDT Gender Identity Not on file Sexual Orientation Not on file documented as of this encounter Plan of Treatment Not on file documented as of this encounter Visit Diagnoses Not on filedocumented in this encounter Additional Health Concerns Assessment Noted Time PHQ-9 Depression Total Score: 0 02/20/20 23 4:00 AM EDT documented as of this encounter
--- OUTSIDE RECORDS SUMMARY | 2024-08-13 14:11 | XMS_ITS | Encounter Summary ---
Author Organization [facility] Address [address] [place] [address] Care Team Providers Care Air Crew Officer Name Role Phone Unavailable Primary Care Provider Unavailabl e Encounter Details Date Type Department Care Team (Late st Contact Info) Description 03/22/2023 Scanned Document [facility] [place] [address] [facility], [address] [place] [id number] Provider, Historical . Social History Tobacco Use Types Packs/Day Years [...] your living situation today? I have a [facility] place to live 02/20/2023 Interpersonal Safety [...] on file documented as of this encounter Procedures Procedure Name Priority Date/Time Associated Diagnosis Comments DEVICE INTERROGATION REMOTE NON BILLABLE Routine 03/22/2023 documented in this encounter Results * Device Interrogation Remote Non Billable (03/22/2023) Anatomical Region Laterality Modality Chest Other us Historical Provider CAR DEVICE INTER ORDERABLES Final Result documented in this encounter Visit Diagnoses Not on filedocumented in this encounter Additional Health Concerns Assessment Noted Time PHQ-9 Depression Total Score: 0 02/20/20 23 4:00 AM EDT documented as of this encounter
--- OUTSIDE RECORDS SUMMARY | 2024-08-13 14:11 | XMS_ITS | Referral Summary ---
Author Organization [facility] Address [address] [place] [address] Care Team Providers Care [employer] Instructor Name Role Phone Cecy García Primary Care Provider [phone] Allergies No known active allergies Medications amiodarone (PACERONE) 200 mg tablet Take 200 mg by mouth once a day. 3 Active lisinopriL (PRINIVIL,ZESTR IL) 20 mg tablet Take 20 mg by mouth daily. 3 Active metoprolol succinate XL (TOPROL-XL) 200 mg 24 hr tablet Take 200 mg by mouth once a day. Active Eliquis 5 mg tablet Take 1 tablet (5 mg total) by mouth every 12 hours. 4 Active polyethylene glycol 3350 (Miralax) powder Follow Colonoscopy prep instructions. 238 g 4 Active Active Problems Problem Noted Date Diagnosed Date Diverticulosis of colon 01/09/2024 Assessment & Plan (01/09/2024 4:12 PM EDT): Diverticulosis Assessment & Plan Colonoscopy 01/08 finding of diverticulosis and one polyp which was not removed in the context of recent hematochezia. No active bleed visualized. Hematoma of duodenum 01/07/2024 Assessment & Plan (01/07/2024 6:47 PM EDT): On prior admission: Presented to OSH with 2 days of N/V worsening RUQ abdominal pain found to have alisha-duodenal hematoma so transferred [facility]. With hypotension and lactic acidosis initially improved after 2 units of PRBCs. CTA at [facility] showed large hematoma involving the second and third part of the duodenum and adjacent mesentery with extension into the retroperitoneum and right paracolic gutter. No CT evidence of active extravasation but patient was taken to IR where they also did not see active extravasation but he empirically had his GDA embolized, because the hematoma had increased in size slightly from the outside study. Patient had recurrence of severe abdominal pain. Repeat CTA obtained showed improvement in duodenal hematoma, no active extravastation. - See GI bleed active problem FARHEEN on CPAP 01/07/2024 Assessment & Plan (01/09/2024 1:28 PM EDT): Patient reports using CPAP after polysomnography assessment. -Placed on nocturnal CPAP from respiratory. GI bleed 10/15/2023 Assessment & Plan (10/19/2023 8:57 PM EDT): Presented to OSH with 2 days of N/V worsening RUQ abdominal pain found to have alisha-duodenal hematoma so transferred to [facility]. With hypotension and lactic acidosis initially improved after 2 units of PRBCs. CTA here shows large hematoma involving the second and third part of the duodenum and adjacent mesentery with extension into the retroperitoneum and right paracolic gutter. No CT evidence of active extravasation but patient was taken to IR where they also did not see active extravasation but he empirically had his GDA embolized, because the hematoma had increased in size slightly from the outside study. Postprocedure labs are relatively stable. Patient had recurrence of severe abdominal pain. Repeat CTA obtained showed improvement in duodenal hematoma, no active extravastation. - Gen surg following, appreciate recs - Daily CBC -Empiric IV PPI twice daily - Per discussion with surgery, recommended holding AC for 2 weeks prior to resuming Pancreatic lesion 10/15/2023 Assessment & Plan (01/07/2024 7:17 PM EDT): On last admission - Small hypodense lesion involving the pancreas, cyst versus IPMN, nonemergent MRI recommended for further evaluation Assessment & Plan (10/17/2023 5:54 PM EDT): Small hypodense lesion involving the pancreas, cyst versus IPMN, nonemergent MRI recommended for further evaluation - Outpatient follow up Adrenal nodule 10/15/2023 Assessment & Plan (01/07/2024 7:17 PM EDT): On last admission - Small left adrenal nodule, consider nonemergent dedicated adrenal imaging. Assessment & Plan (10/17/2023 5:54 PM EDT): Small left adrenal nodule, consider nonemergent dedicated adrenal imaging. - Outpatient follow up QT prolongation 10/15/2023 Assessment & Plan (10/19/2023 8:57 PM EDT): Qtc 493 on admission. He is on amiodarone for Afib. - Resume Amiodarone, repeat EKG in AM - Lytes K>4.0 Mg pending Ischemic cardiomyopathy 10/15/2023 Assessment & Plan (10/17/2023 5:57 PM EDT): Patient had prior admission to [facility] in February of last year where he had Vtach to 250s and was shocked and ICD placed. Found to have ischemic CM. TTE from care everywhere in 02/2023 showed LVEF 64%, akinetic apex, no obvious valve abnormalities. - Cont BB - Cont outpatient cardiology follow up - Does not appear to be in active HF exacerbation Alcohol use disorder in remission 02/22/2023 Assessment & Plan (01/07/2024 6:46 PM EDT): History of alcohol use disorder, now in remission. Last drink in October of 2023. Assessment & Plan (10/18/2023 10:00 PM EDT): During his admission in February 2023 at [facility] he had alcohol withdrawal through day 5 of his admission. No longer scoring - DC CIWA Atrial fibrillation 02/19/2023 Assessment & Plan (01/09/2024 2:35 PM EDT): Home meds: Amiodarone 200 mg daily; metoprolol succinate 200 mg daily; Eliquis 5 mg BID. NSR on admission. Prior history of flecainide in the past. CHADSVASC score is 2. - HOLD Amiodarone - Given low CHADVASC, plan to restart eliquis in 1 week after scope - Metoprolol tartrate 50 mg BID - reduced dose to titrate inpatient Assessment & Plan (12/26/2023 3:38 PM EDT): Status post 2 cardioversions at [facility]. Continue with Eliquis. Continue with amiodarone for now but may consider an ablation in the future. Assessment & Plan (10/19/2023 8:56 PM EDT): He was in normal sinus rhythm here with a prolonged QTc. He is currently on amiodarone 200 mg daily metoprolol succinate 200 mg daily. He was on flecainide in the past but he has since stopped this he says. -Holding Eliquis given his active bleeding. -Continue metoprolol succinate 200 mg daily -Resume Amiodarone, repeat EKG in AM Essential hypertension 06/10/2019 Assessment & Plan (01/07/2024 7:14 PM EDT): Home meds: lisinopril 20 mg daily; metoprolol succinate 200 mg daily Hold antihypertensives. - metoprolol per Afib Assessment & Plan (10/17/2023 5:53 PM EDT): His home medications include lisinopril 20 mg daily, metop for CAD. -Holding Lisinopril. Bilateral knee pain 01/18/2018 Resolved Problems Problem Noted Date Diagnosed Date Resolved Date Hematochezia 01/07/2024 01/10/2024 Assessment & Plan (01/09/2024 2:34 PM EDT): Upper GI bleed was suspected based on location of RUQ abdominal pain and imaging finds on 01/[address] concerning for swelling around the 2nd part of the duodenum. CT abdomen and pelvis had no evidence for active GI bleeding, but abnormal appearance of the 2nd portion of the duodenum with heterogenous wall thickening and stranding of the adjacent fat was noted. However, negative upper endoscopy for any abnormalities or signs of active bleed make upper GI bleed, including duodenal ulcer, dieulafoy's lesion, AVM unlikely. Differential also included lower GI bleed including diverticular bleed given BRBPR without BUN elevation and prior normal colonoscopy reported at [facility] 8 years ago warranting return for repeat screening in 10 years. Colonoscopy 01/08 revealed diverticulosis in the entire colon, one polyp in the cecum. No active bleeding was visualized. Plan to repeat colonoscopy within one year for polyp removal. Patient Hgb 11.8 on admission and s/p Kcentra for Eliquis reversal. Hgb 8.7 on 01/08 AM, will continue to monitor CBC with resuming normal diet and monitor for any signs of continuing GI bleed. Currently hemodynamically stable. - GI consulted, upper and lower endoscopy completed 01/08 - Upper endoscopy negative for any findings or active bleed - Colonoscopy revealed diverticulosis - Recommend high fiber diet and repeat colonoscopy in 1 year for poylp removal - Resume normal PO diet - Maintain 2 large bore IV - will consider restarting eliquis in 1 week as low CHADVASC score and will monitor for HD stability - IV PPI BID - mIVF - CBC daily Right upper quadrant abdominal pain 01/07/2024 01/10/2024 Assessment & Plan (01/09/2024 1:29 PM EDT): Abdominal pain may be due to source of bleeding into the lumen of the GI tract, for example an ulcer. No LFT elevations at outside hospital to suggest biliary or liver pathology. Today 01/08 AM does not report any RUQ pain to LT or deep palpation. - Pain mgmt - APAP q8h PRN - Morphine 4 mg IV q4h PRN breakthrough pain -last given 01/07 20:50 Abdominal hematoma 10/15/2023 Assessment & Plan (10/15/2023 9:43 AM EDT): Addressed under GIB above ^ SIRS (systemic inflammatory response syndrome) 10/15/2023 10/20/2023 Assessment & Plan (10/17/2023 5:55 PM EDT): Pt was given empiric antibiotics for hypotension in setting of intra-abdominal hematoma concern for possible intra-abdominal infection although no fever, mild white count at 11.6. -Will continue empiric antibiotics, likely DC tomorrow if improved SIRS Criteria Patient met the following SIRS Criteria: WBC >12 Sepsis Criteria Sepsis was not present on admission. Source of infection is possible intraabdominal infection . Blood cultures were drawn prior to antibiotics given. Initial lactic acid was drawn and value was greater than or equal to 2 and repeat was ordered. Patient was ordered the following Antibiotics: Vancomycin and Zosyn Full Sepsis bolus NOT GIVEN. I have ordered 1,000ml of IV fluids for this patient, rather than 30ml/kg because this patient has congestive heart failure. Alcohol withdrawal 10/15/2023 Assessment & Plan (10/18/2023 10:01 PM EDT): Last drink evening of 10/12. Scoring 0-6 initially. Does have history of withdrawal in the past. DC CIWA as no longer scoring Ventricular tachycardia 02/19/202312/16 Assessment & Plan (01/07/2024 7:18 PM EDT): AICD in place. Patient had prior admission to [facility] in February of last year where he had Vtach to 250s and was shocked and ICD placed. Found to have ischemic CM. TTE from care everywhere in 02/2023 showed LVEF 64%, akinetic apex, no obvious valve abnormalities. EKG on admission with Qtc of 478, QT prolongation on prior admissions. - Telemetry monitoring for cardiac history - Monitor QTc Assessment & Plan (12/26/2023 3:39 PM EDT): Status postcardiac arrest with documented ventricular tachycardia. Status post ICD. Continue with ICD interrogations. Assessment & Plan (10/17/2023 5:54 PM EDT): In February 2023 patient was found to have heart rate 225 and V. tach, at which time he got an ICD implanted. He was previously on Flecainide for this. - Cont outpatient follow up Immunizations Name Administration Dates Next Due Influenza, Injectable, Quadr ivalent, Preservative Free 10/15/2023(Deferred: Patient Refused) Social History Tobacco Use Types Packs/Day Years Used Date Smoking Tobacco: Never Smokeless Tobacco: Never Tobacco Cessation:Counseling Given: Not Answered Alcohol Use Standard Drinks/Week Comments Not Currently 0 (1 standard drink = 0.6 oz pure alcohol) quit 4 months ago- had been dring 6/day Sex and Gender Information Value Date Recorded Sex Assigned at Male 10/16/2023 9:01 AM EDT Legal Sex Male 11:56 PM EDT Gender Identity Male 10/16/2023 9:01 AM EDT Sexual Orientation Not on file Last Filed Vital Signs Vital Sign Reading Time Taken Comments Blood Pressure 131/79 01/10/2024 1:00 PM EDT Pulse 65 01/10/2024 1:00 PM EDT Temperature 37.3 ??C (99.1 ??F) 01/10/2024 1:00 PM ED T Respiratory Rate 18 01/10/2024 1:00 PM EDT Oxygen Saturation 98% 01/10/2024 1:00 PM EDT Inhaled Oxygen Concentration - - Weight 128.4 kg (283 lb) 01/07/2024 1:48 PM EDT Height 190.5 cm (6' 3 ) 01/07/2024 1:48 PM EDT Body Mass Index 35.37 01/07/2024 1:48 PM EDT Plan of Treatment Scheduled Procedures Name Priority Associated Diagnoses Date/Ti me COLONOSCOPY, DIAGNOSTIC, WIT H POSSIBLE MODERATE SEDATION Rectal polyp Medical Devices Implanted Type Area Out Patient Therapist Device Identifier Shelf Expiration Date Model / Serial / Lot Soft 4x30 Embold - [id number] Implanted:Qty: 1 on 10/15/2023 at [facility] Implant [employer]ocard [id number] 05/23/2026 [id number] / / [id number] Soft 4x30 Embold - [id number] Implanted:Qty: 1 on 10/15/2023 by Jeffrey Srivastava MD at [facility] Implant Stocard [id number] 03/08/2024 [id number] / / [id number] Soft 5x30 Embold - [id number] Implanted:Qty: 1 on 10/15/2023 by Jeffrey Srivastava MD at [facility] Implant [facility] [id number] / / Coil Embolization Fibered Detachable Us 5x15 Embold - [id number] Implanted:Qty: 1 on 10/15/2023 by Jeffrey Srivastava MD at [facility] Implant [facility] [id number] / / Device Closure Vascular Plug 6fr Angio-Seal Vip - [id number] Implanted:Qty: 1 on 10/15/2023 by Jeffrey Srivastava MD at [facility] Implant Right: Groin [employer] [id number] 06/18/2024 [id number] / / [id number] Procedures * Due to [place] law, this organization might not be sharing negative HIV tests. Procedure Name Priority Date/Time Associated Diagnosis Comments COMPREHENSIVE METABOLIC PANEL Routine 01/10/2024 5:49 AM EDT COLONOSCOPY 01/09/2024 from Last 3 Months or Most Recently Relevant to Health Maintenance Results * Due to [place] law, this organization might not be sharing negative HIV tests. * (ABNORMAL) Comprehensive metabolic panel (01/10/2024 5:49 AM EDT) NA 139 135 - 145 mmol/L 01/10/2024 8:46 AM EDT [facility] K 3.4(L) 3.5 - 5.3 mmol/L 01/10/2024 8:46 AM EDT [facility] Cl 103 98 - 107 mmol/L 01/10/2024 8:46 AM EDT [facility] CO2 26 24 - 32 mmol/L 01/10/2024 8:46 AM EDT [facility] Anion Gap 10 5 - 15 01/10/2024 8:46 AM EDT [facility] Glucose 89 65 - 99 mg/dL 01/10/2024 8:46 AM EDT [facility] Creatinine 0.86 0.60 - 1.30 mg/dL 01/10/2024 8:46 AM EDT [facility] Calcium 8.5(L) 8.6 - 10.5 mg/dL 01/10/2024 8:46 AM EDT [facility] Total Protein 5.8(L) 6.0 - 8.0 g/dL 01/10/2024 8:46 AM EDT [facility] Albumin 3.4(L) 3.5 - 5.2 g/dL 01/10/2024 8:46 AM EDT [facility] Bilirubin, Total 0.4 0.2 - 1.2 mg/dL 01/10/2024 8:46 AM EDT [facility] Alkaline Phosphatase 65 35 - 129 U/L 01/10/2024 8:46 AM EDT [facility] AST 14 10 - 40 U/L 01/10/2024 8:46 AM EDT [facility] ALT 13 10 - 40 U/L 01/10/2024 8:46 AM EDT [facility] BUN 7 7 - 23 mg/dL 01/10/2024 8:46 AM EDT [facility] eGFR >90 >=60 mL/min/1. 73m2 01/10/2024 8:46 AM EDT [facility] Comment:The estimated glomer ular filtration rate (eGFR) is calculated using a new formula developed by the NKF-ASN task force to eliminate race-based correction factors. The new formula uses serum/plasma creatinine, age, and gender to determine eGFR. A value below 60mls/min might indicate kidney disease and will be flagged. For additional information, see Cirilo et al, Am J Kidney Dis. 2021;79(2):268- 288, A Unifying Approach for GFR estimation: Recommendations of the NKF-ASN Task Force on Reassessing the Inclusion of Race in Diagnosing Kidney Disease . Globulin, Total 2.4 2.1 - 4.2 g/dL 01/10/2024 8:46 AM EDT [facility] A/G Ratio 1.4(L) 1.5 - 3.0 01/10/2024 8:46 AM EDT [facility] Blood Structure of peripheral vein / Unknown Venipuncture / Unknown 01/10/2024 5:49 AM EDT 01/10/2024 7:58 AM EDT us Arturo Perez MD LAB BLOOD ORDERABLES Final Result [facility] [address] [place] [address], [place] * COLONOSCOPY (01/09/2024) Narrative Procedure Note Leah Correa MD - 01/09/2024 10:13 AM EDT [facility] G[facility]enter[facility] Patient Name: Nitesh Osorio Procedure Date: 01/09/2024 10:13 AM Date of : 1965 Admit Type: Inpatient Age: 58 Room: [facility] Gender: Male Note Status: Finalized Attending MD: Leah Correa MD Procedure: Colonoscopy Indications: Hematochezia Comorbidities Providers: Leah Correa MD, Chika Farr MD (Fellow) Referring MD: Chika Farr MD (Referring MD) Requesting Provider: Medicines: See the Anesthesia note for documentation of the administered medications Complications: No immediate complications. Estimated Blood Loss: Estimated blood loss: none. Procedure: Pre-Anesthesia Assessment: - Prior to the procedure, a History and Physicalwas performed, and patient medications and allergieswere reviewed. The patient is competent. The risks and benefits of the procedure and the sedation optionsand risks were discussed with the patient. Allquestions were answered and informed consent was obtained. Patient identification and proposed procedure were verified by the physician in the pre-procedurearea. Mental Status Examination: alert and oriented.Airway Examination: normal oropharyngeal airway and neck mobility. Respiratory Examination: clear to auscultation. CV Examination: normal. Prophylactic Antibiotics: The patient does not requireprophylactic antibiotics. Prior Anticoagulants: The patient has taken no anticoagulant or antiplatelet agents. ASA Grade Assessment: III - A patient with severesystemic disease. After reviewing the risks and benefits,the patient was deemed in satisfactory condition to undergo the procedure. The anesthesia plan was touse deep sedation / analgesia. Immediately prior to administration of medications, the patient was re-assessed for adequacy to receive sedatives. The heart rate, respiratory rate, oxygen saturations, blood pressure, adequacy of pulmonary ventilation,and response to care were monitored throughout the procedure. The physical status of the patient was re-assessed after the procedure. After I obtained informed consent, the scope was passed under direct vision. Throughout theprocedure, the patient's blood pressure, pulse, and oxygen saturations were monitored continuously. The Colonoscope was introduced through the anus and advanced to the cecum, identified by appendiceal orifice and ileocecal valve. The colonoscopy was performed without difficulty. The patient tolerated the procedure well. The quality of the bowel preparation was good. Findings: The perianal and digital rectal examinations were normal. Many small and large-mouthed diverticula were found in the entirecolon. A polyp was found in the cecum. The polyp was semi-pedunculated. No active bleeding seen. Impression: - Diverticulosis in the entire examined colon. - One polyp in the cecum. Not resected in thesetting of a GI bleed. - No active bleeding seen. Recommendation: - Advance diet as tolerated. - Repeat screening colonoscopy within one year for polyp removal. Will need MAC. Leah Correa MD 01/09/2024 11:37:23 AM This report has been signed electronically. Number of Addenda: 0 Note Initiated On: 01/09/2024 10:13 AM Leah Correa MD PROVATION PROCEDURES Final Resul t from Last 3 Months or Most Recently Relevant to Health Maintenance Insurance [facility] ATTN:[place] [address] [id number] Advance Directives Documents on File Type Date Recorded Patient [facility] Proxy 10/17/2023 9:51 AM 2020 * Full Code (Latest Code Status on File) Date Activated Date Inactivated Comments 01/07/2024 5:29 PM 01/10/2024 5:11 PM * Full Code Date Activated Date Inactivated Comments 10/15/2023 8:20 AM 10/20/2023 3:53 PM Healthcare Agents on File Name Relationship Healthcare Agent Relationship Communication Lulu Hale Significant Other Health Care Agent Kaela ( Fabian ) Devon Sister Alternate H [facility] Care Agent Care Teams [employer] In[employer] Relationship Specialty Start Date End Date Cecy García PCP - General Internal Medicine 10/27/23
--- OUTSIDE RECORDS SUMMARY | 2024-08-13 14:11 | XMS_ITS | Encounter Summary ---
Author Organization [facility] Address [address] [place] [address] Care Team Providers Care Projection Camera Operator Name Role Phone Unavailable Primary Care Provider Unavailabl e Reason for Visit * Reason Comments Medication Refill Encounter Details Date Type Department Care Team (Late st Contact Info) Description 04/14/2024 Refill [facility] [place] [address], [place], [place] [id number] Santi Mirza MD [address] [phone] Medication Refill Social History Tobacco [...] your living situation today? I have a [facility] place to live 02/20/2023 Interpersonal Safety Answer [...]
--- OUTSIDE RECORDS SUMMARY | 2024-08-13 14:11 | XMS_ITS | Clinical Summary ---
Author Organization [facility] Address [address] [place] [address] Care Team Providers Care Singer And Unloader Name Role Phone Cecy García Primary Care Provider [phone] Allergies No known active allergies Medications amiodarone [...] to have alisha-duodenal hematoma so transferred to [facility]. With hypotension and lactic acidosis initially improved after 2 units of PRBCs. CTA at [facility] showed large hematoma involving the second [...] to have alisha-duodenal hematoma so transferred to [facility]. With hypotension and lactic acidosis initially improved [...] PM EDT): Patient had prior admission to [place] in February of last year where he [...] During his admission in February 2023 at [place] he had alcohol withdrawal through day 5 [...] PM EDT): Status post 2 cardioversions at [facility]. Continue with Eliquis. Continue with amiodarone for [...] elevation and prior normal colonoscopy reported at [facility] 8 years ago warranting return for repeat [...] in place. Patient had prior admission to [place] in February of last year where he [...] WIT H POSSIBLE MODERATE SEDATION Rectal polyp Health Maintenance Due Date Last Done Comments Cologuard 1965 FOBT / Fit Test 1965 HIV Screening 1965 Hepatitis C Screening 1965 Sigmoidoscopy 1965 Hepatitis B Vaccines (1 of 3 - 19+ 3-dose series) 1986 Zoster Vaccines (1 of 2) 2017 COVID-19 Vaccine (2023- season) 2024 Influenza Vaccine (#1) 2024 04/14/2020, 2019 Alcohol/Substance Use Screening 07/17/2024 Depression Screening and Follow-Up 07/17/2024 Social Drivers of Health Annual Screening 07/17/2024 Basic Metabolic Panel 01/09/2025 01/10/2024 , 01/09/2024, 01/08/2024, Additional history exists DTaP,Tdap,and Td Vaccines (3 - Tdap) 01/08/2026 01/09/2016, 01/31/2007 Colon Cancer Screening 01/08/2034 Colonoscopy 01/08/2034 01/09/2024, 12/16, 01/09/2024 RSV Vaccine (60+ years old and patients) (1 - 1-dose 75+ series) 2042 Pneumococcal Vaccine: Pediatric (0-5 Years) and At-Risk Patients (6-64 Years) Aged Out No longer eligible based on patient's age to complete this topic Medical Devices Implanted Type Area Unit Nurse Device Identifier Shelf Expiration Date Model / Serial / Lot Soft 4x30 Embold - [id number] Implanted:Qty: 1 on 10/15/[address] [facility] Implant Wireless Tech [id number] 05/23/2026 [id number] / / [id number] Soft 4x30 Embold - [id number] Implanted:Qty: 1 on 10/15/2023 by Jeffrey Srivastava MD at [facility] Implant Wireless Tech [id number] 03/08/2024 [id number] / / [id number] Soft 5x30 Embold - [id number] Implanted:Qty: 1 on 10/15/2023 by Jeffrey Srivastava MD at [facility] Implant [place] [employer] [id number] / / Coil Embolization Fibered Detachable Us 5x15 Embold - [id number] Implanted:Qty: 1 on 10/15/2023 by Jeffrey Srivastava MD at [facility] Implant [place] [employer] [id number] / / Device Closure Vascular Plug 6fr Angio-Seal Vip - [id number] Implanted:Qty: 1 on 10/15/2023 by Jeffrey Srivastava MD at [facility] Implant Right: Groin [employer] [id number] 06/18/2024 [id number] / / [id number] Procedures * Due to [place] state law, this organization might not be sharing negative HIV tests. Procedure Name Priority Date/Time Associated Diagnosis Comments COMPREHENSIVE METABOLIC PANEL Routine 01/10/2024 5:49 AM EDT COLONOSCOPY 01/09/2024 from Last 3 Months or Most Recently Relevant to Health Maintenance Results * Due to [place] state law, this organization might not be sharing negative HIV tests. * (ABNORMAL) Comprehensive metabolic panel (01/10/2024 5:49 AM EDT) NA 139 135 - 145 mmol/L 01/10/2024 8:46 AM EDT [facility] K 3.4(L) 3.5 - 5.3 mmol/L 01/10/2024 8:46 AM EDT [facility] Cl 103 98 - 107 mmol/L 01/10/2024 8:46 AM EDT [facility] CO2 26 24 - 32 mmol/L 01/10/2024 8:46 AM EDT [facility] Anion Gap 10 5 - 15 01/10/2024 8:46 AM EDT [facility] Glucose 89 65 - 99 mg/dL 01/10/2024 8:46 AM EDT [facility] Creatinine 0.86 0.60 - 1.30 mg/dL 01/10/2024 8:46 AM EDT [facility] Calcium 8.5(L) 8.6 - 10.5 mg/dL 01/10/2024 8:46 AM EDT [facility] Total Protein 5.8(L) 6.0 - 8.0 g/dL 01/10/2024 8:46 AM EDT [facility] Albumin 3.4(L) 3.5 - 5.2 g/dL 01/10/2024 8:46 AM EDT [facility] Bilirubin, Total 0.4 0.2 - 1.2 mg/dL 01/10/2024 8:46 AM EDT [facility] Alkaline Phosphatase 65 35 - 129 U/L 01/10/2024 8:46 AM EDT [facility] AST 14 10 - 40 U/L 01/10/2024 8:46 AM EDT [facility] ALT 13 10 - 40 U/L 01/10/2024 8:46 AM EDT [facility] BUN 7 7 - 23 mg/dL 01/10/2024 8:46 AM EDT [facility] eGFR >90 >=60 mL/min/1. 73m2 01/10/2024 8:46 AM EDT [facility] Comment:The estimated glomer ular [...] - 4.2 g/dL 01/10/2024 8:46 AM EDT [facility] A/G Ratio 1.4(L) 1.5 - 3.0 01/10/2024 8:46 AM EDT [facility] Blood Structure of peripheral vein / Unknown Venipuncture / Unknown 01/10/2024 5:49 AM EDT 01/10/2024 7:58 AM EDT us Arturo Perez MD LAB BLOOD ORDERABLES Final Result [facility] [address] [place] [address], * COLONOSCOPY (01/09/2024) Narrative Procedure Note Leah Correa MD - 01/09/2024 10:[address] [facility] Gastroenterology Patient Name: Nitesh Osorio Procedure Date: 01/09/2024 10:13 AM Date of : 1965 Admit Type: Inpatient Age: 58 Room: [place] [address] Gender: Male Note Status: Finalized Attending MD: [...] Most Recently Relevant to Health Maintenance Insurance [facility] Advance Directives Documents on File Type Date Recorded Patient Survey Methodologist Expl anation Health Care Proxy 10/17/2023 9:51 AM 2020 * Full Code (Latest Code Status on File) Date Activated Date Inactivated Comments 01/07/2024 5:29 PM 01/10/2024 5:11 PM * Full Code Date Activated Date Inactivated Comments 10/15/2023 8:20 AM 10/20/2023 3:53 PM Healthcare Agents on File Name Relationship Healthcare Agent Relationship Communication Lulu Hale Significant Other Health Care Agent Kaela ( Lue ) Devon Sister Alternate H [facility] Care Agent Care Teams Singer And Unloader Relationship Specialty Start Date End Date Cecy García PCP - General Internal Medicine 10/27/23
--- OUTSIDE RECORDS SUMMARY | 2024-08-13 14:11 | XMS_ITS | Clinical Summary ---
Author Organization [facility] [address] [facility] Address [address] [place] [address] Phone Care Team Providers Care Color Room Attendant Name Role Phone Unavailable Primary Care Provider Unavailabl e Allergies No known active allergies Medications apixaban (ELIQUIS) 5 mg tablet Take 1 tablet (5 mg total) by mouth 2 (two) times daily. Active flecainide (TAMBOCOR) 100 mg tablet Take 1 tablet (100 mg total) by mouth every 12 (twelve) hours. Active metoprolol succinate XL (TOPROL-XL) 200 mg 24 hr tablet Take 1 tablet (200 mg total) by mouth every 12 (twelve) hours for 7 days, THEN 1 tablet (200 mg total) every 12 (twelve) hours for 7 days, THEN 1 tablet (200 mg total) daily. Take with or immediately following a meal.. 58 tablet 3 Active NIFEdipine XL (PROCARDIA-XL) 30 mg 24 hr tablet Take 1 tablet (30 mg total) by mouth daily. 30 tablet 3 Active amiodarone (PACERONE) 200 mg tablet Take 1 tablet (200 mg total) by mouth daily. 90 tablet 3 3 Active hydroCHLOROthia zide (HYDRODIURIL) 12.5 mg tablet Take 1 tablet (12.5 mg total) by mouth daily. 30 tablet 3 Active lisinopriL (PRINIVIL,ZESTR IL) 20 mg tablet take 1 tablet by mouth every day 90 tablet 4 3 Active Active Problems Problem Noted Date Diagnosed Date ETOH abuse 02/22/2023 Essential hypertension 02/20/2023 Ventricular tachycardia 02/19/2023 Atrial fibrillation, unspecified type (HC Code) (HC CODE) 02/19/2023 Social History Tobacco Use Types Packs/Day Years [...] your living situation today? I have a [facility] place to live 02/20/2023 Interpersonal Safety [...] on file Sexual Orientation Not on file Last Filed Vital Signs Vital Sign Reading Time Taken Comments Blood Pressure 102/63 02/23/2023 1:50 PM EDT Pulse 90 02/23/2023 1:50 PM EDT Temperature 37.4 ??C (99.3 ??F) 02/23/2023 1:50 PM ED T Respiratory Rate 18 02/23/2023 1:50 PM EDT Oxygen Saturation 91% 02/23/2023 1:50 PM EDT Inhaled Oxygen Concentration - - Weight 123.7 kg (272 lb 11.3 oz) 02/21/2023 3:32 PM EDT Height 190.5 cm (6' 3 ) 02/21/2023 3:32 PM EDT Body Mass Index 34.09 02/21/2023 3:32 PM EDT Plan of Treatment Health Maintenance Due Date Last Done Comments HIV screening 1980 Hepatitis C screening 1985 Tetanus adult (Td q 10,TDAP once) 1987 Lipid disorder screening 2007 Colon cancer screening, Colonoscopy 2012 Shingles vaccine (Shingrix) (1 of 2 - Shingrix (RZV) 2 Dose Standard Series) 2017 Influenza vaccine 02/15/2024 Covid-19 vaccine series ( - season) 2024 Diabetes screening 02/21/2026 02/21/2023, 0 02/20/2023, 02/19/2023, Additional history exists RSV Discussion (1 - 1-dose 75+ series) 2042 Meningococcal Vaccine Aged Out No socorro mick eligible based on patient's age to complete this topic Pneumococcal Vaccine Aged Out No long er eligible based on patient's age to complete this topic Medical Devices Implanted Type Area Laser Operator Device Identifier Shelf Expiration Date Model / Serial / Lot Lead Sprint Quattro [id number] - [id number] Implanted:Qty: 1 on 02/21/2023 by Justus Beyer MD at [facility] [address] Implant Right: VENTRICLE [employer] 11/24/2024 [id number] / [id number] V / [id number] V Envelope Absorbable Antibacterial [id number] - [id number] Implanted:Qty: 1 on 02/21/2023 by Justus Beyer MD at [facility] [address] Implant Left: Chest Wall [employer] 11/26/2023 [id number] / / [id number] Icd [place] Mri Vr Single Df4 - [id number] Implanted:Qty: 1 on 02/21/2023 by Justus Beyer MD at [facility] [address] Implant Left: Chest [employer] 07/13/2024 [id number] / [id number] / [id number] S Procedures Procedure Name Priority Date/Time Associated Diagnosis Comments BASIC METABOLIC PANEL Routine 02/21/2023 6:10 AM EDT from Last 3 Months or Most Recently Relevant to Health Maintenance Results * Basic metabolic panel (02/21/2023 6:10 AM EDT) [facility] Glucose 79 65 - 110 mg/dL 02/21/2023 6:50 AM EDT + [facility] Comment: Non-fasting: ??65-110 mg/dL Fasting (minimum 6 hrs): ??65-99 mg/dL BUN 10 7 - 18 mg/dL 02/21/2023 6:50 AM EDT + [facility] Creatinine 0.89 0.70 - 1.30 mg/dL 02/21/2023 6:50 AM EDT + [facility] Sodium 138 136 - 145 mmol/L 02/21/2023 6:50 AM EDT + [facility] Potassium 4.2 3.5 - 5.1 mmol/L 02/21/2023 6:[address] [facility] Comment:Specimen slightly he molyzed. Chloride 104 98 - 107 mmol/L 02/21/2023 6:50 AM EDT + [facility] CO2 27 21 - 32 mmol/L 02/21/2023 6:50 AM EDT + [facility] Anion Gap 7 5 - 15 mmol/L 02/21/2023 6:[address] [facility] Calcium 9.4 8.5 - 10.1 mg/dL 02/21/2023 6:[address] [facility] eGFR (Creatinine) >60 >=60 mL/min/1.7 3m2 02/21/2023 6:[address] [facility] Comment: Values < 60 mL/min/1.73 m2 may indicate CKD if present for more than three months AND creatinine is at steady state. The eGFR provides a rough estimate of kidney function. On 03/01/22 all [facility] Clinical Labs and Epic began using a iji-wqwk-gktvy formula for estimating GFR called CKD-EPI Creatinine 2020. This equation reports eGFR based on creatinine, patient age, clinical sex, and is standardized to a body surface area of 1.73 m2. For the same creatinine, this new race-free eGFR will be lower than prior reported Black eGFR results and higher than prior Non-Black eGFR results. For further guidance, please refer to the CKD: Adult Alignment Mechanic Signature pathway. Blood Venipuncture / Unknown 02/21/2023 6:10 AM EDT 02/21/2023 6:22 AM EDT Alessandro Og MD LAB BLOOD ORDERABLES Final Result [facility] [address] [place] [address] from Last 3 Months or Most Recently Relevant to Health Maintenance Insurance [facility] [place] [facility] [place] [facility]IC[facility]GD MEDICARE Advance Directives * Full Code (Latest Code Status on File) Date Activated Date Inactivated Comments 02/19/2023 1:39 AM 02/23/2023 7:02 PM
--- OUTSIDE RECORDS SUMMARY | 2024-08-13 14:11 | XMS_ITS | Encounter Summary ---
Author Organization [facility] Address [address] [place] [address] Care Team Providers Care Bulk Station Agent Name Role Phone Unavailable Primary Care Provider Unavailabl e Reason for Visit * Reason Comments Med Change Request Encounter Details Date Type Department Care Team (Late st Contact Info) Description 03/23/2023 Refill [facility] [place] [address] [facility], [address], [place] [id number] Santi Mirza MD [address] [address] Med Change Request Social History Tobacco Use Types Packs/Day Years [...] your living situation today? I have a [facility] place to live 02/20/2023 Interpersonal Safety [...]
--- OUTSIDE RECORDS SUMMARY | 2024-08-13 14:12 | XMS_ITS | Clinical Summary ---
Author Organization [facility] Address [address] [place] [id number] Care Team Providers Care Psychotherapist Counselor Name Role Phone Cecy García MD Primary Care Provider [phone] Active Problems Problem Noted Date Diagnosed Date Hypertension 06/10/2019 Bilateral knee pain 01/18/2018 Surgical History Surgery Date Site/Laterality Comments ANKLE FRACTURE SURGERY PROCEDURE: DC OPEN TREATMENT MEDIAL MALLEOLUS FRACTURE KNEE ARTHROSCOPY W/ MENISCAL REPAIR PROCEDURE: DC ARTHROSCOPY KNEE W/MENISCUS RPR MEDIAL/LATERAL Family History Medical History Relation Name Comments No Known Problems Brother 1 No Known Problems Brother 2 No Known Problems Brother 3 No Known Problems Brother 4 Diabetes Father Throat cancer Maternal Grandfather No Known Problems Maternal Grandmother Diabetes Mother Heart attack Mother cause of Hyperlipidemia Mother Hypertension Mother Other: ckd Mother HD Diabetes Sister 1 Diabetes Sister 2 Hypertension Sister 2 No Known Problems Sister 3 No Known Problems Sister 4 Relation Name Status Comments Brother 1 Alive Brother 2 Alive Brother 3 Alive Brother 4 Alive Father Maternal Grandfather Maternal Grandmother Mother (Age 76) Sister 1 Alive Sister 2 Alive Sister 3 Alive Sister 4 Alive Social History Tobacco Use Types Packs/Day Years Used Date Smoking Tobacco: Never Smokeless Tobacco: Never Alcohol Use Standard Drinks/Week Comments Yes 0 (1 standard drink = 0.6 oz pur e alcohol) Sex and Gender Information Value Date Recorded Sex Assigned at Not on file Gender Identity Not on file Sexual Orientation Not on file Obstetrics History Plan of Treatment Health Maintenance Due Date Last Done Comments DTaP,Tdap,and Td Vaccines (1 - Tdap) 1986 Hepatitis B Vaccines (1 of 3 - 19+ 3-dose series) 1986 Zoster Vaccines (1 of 2) 2017 Depression Screening 06/25/2022 HIV Screening 06/25/2022 Social Influencers of Health Screening 06/25/2022 Cholesterol Screening (Lipid Panel) 03/13/2024 03/13/2019 COVID-19 Vaccine ( - 2023-2 5 season) 2024 Influenza Vaccine (#1) 2024 Hypertension/CHF/CAD Annual BMP Blood Test 01/09/2025 01/10/2024 Colorectal Cancer Screening: Colonoscopy 11/19/2028 11/19/2018 Hepatitis C Screening Completed 10/15/2023 HIB Vaccines Aged Out No longer eligi ble based on patient's age to complete this topic HPV Vaccines Aged Out No longer eligi ble based on patient's age to complete this topic Hepatitis A Vaccines Aged Out No long er eligible based on patient's age to complete this topic IPV Vaccines Aged Out No longer eligi ble based on patient's age to complete this topic MMR Vaccines Aged Out No longer eligi ble based on patient's age to complete this topic Meningococcal ACWY Vaccine Aged Out N o longer eligible based on patient's age to complete this topic Pneumococcal Vaccine: Pediat rics (0 to 5 Years) and At-Risk Patients (6 to 64 Years) Aged Out No longer eligi ble based on patient's age to complete this topic RSV Immunization Patients Un santino 20 months Aged Out No longer eligible b ased on patient's age to complete this topic Varicella Vaccines Aged Out No longer eligible based on patient's age to complete this topic Procedures Procedure Name Priority Date/Time Associated Diagnosis Comments ANNUAL BMP BLOOD TEST Routine 01/10/2024 HEPATITIS C SCREENING Routine 10/15/2023 LIPID PANEL Routine 03/13/2019 COLONOSCOPY Routine 11/19/2018 from Last 3 Months or Most Recently Relevant to Health Maintenance Results * Annual BMP Blood Test (01/10/2024) Annual BMP Blood Test abstracted Historical Provider MD HARPER GOLDEN E * Hepatitis C Screening (10/15/2023) Hepatitis C Screening abstracted Historical Provider MD HARPER GOLDEN E * (ABNORMAL) Lipid panel (03/13/2019) LDL/HDL Ratio 3 0 - 4 Triglycerides 54 0 - 150 mg/dL Cholesterol 189 0 - 200 mg/dL HDL 57 40 mg/dL LDL Cholesterol 122(A) 0 - 100 mg/dL Blood Venous blood specimen / Unknown Historical Provider LAB BLOOD ORDERAB LES * Colonoscopy (11/19/2018) Pathologist [facility] Colonoscopy normal, abstracted Anatomical Region Laterality Modality Other Historical Provider HEALTH MAINTENANC E from Last 3 Months or Most Recently Relevant to Health Maintenance Care Teams Psychotherapist Counselor Relationship Specialty Start Date End Date Cecy García MD [address] [place] [id number] PCP - General Internal Medicine 10/30/17
== END 2024-08-13 13:45 | disposition home or self-care (01) ==
PROVIDERS: PCP Nurse Practitioner Family; Visit Provider Internal Medicine
DX: I48.0 Paroxysmal atrial fibrillation (principal); I42.8 Other cardiomyopathies; I47.20 Ventricular tachycardia, unspecified; F10.10 Alcohol abuse, uncomplicated; E66.01 Morbid (severe) obesity due to excess calories; G47.33 Obstructive sleep apnea (adult) (pediatric); Z99.89 Dependence on other enabling machines and devices
CPT/HCPCS: 93010; 99214

== ENCOUNTER → 2024-08-13 13:12 | Outpatient (BNVA) | payer OTHER, SELFPAY | PROVIDERS: PCP Nurse Practitioner Family; Visit Provider Internal Medicine | DX: I48.0 Paroxysmal atrial fibrillation (principal); I42.8 Other cardiomyopathies; I47.20 Ventricular tachycardia, unspecified; F10.10 Alcohol abuse, uncomplicated; E66.01 Morbid (severe) obesity due to excess calories; I50.30 Unspecified diastolic (congestive) heart failure; Z68.33 Body mass index [BMI] 33.0-33.9, adult; Z99.89 Dependence on other enabling machines and devices | CPT/HCPCS: 93005; 99212 ==

== ENCOUNTER → 2024-08-21 07:58 | Outpatient (BNV) | payer MEDICARE, MEDICAID, SELFPAY | PROVIDERS: PCP Nurse Practitioner Family; Visit Provider Internal Medicine Cardiovascular Disease | DX: I50.30 Unspecified diastolic (congestive) heart failure (principal); I51.7 Cardiomegaly; I36.1 Nonrheumatic tricuspid (valve) insufficiency | CPT/HCPCS: 93306 ==

== ENCOUNTER 2024-08-26 09:07 | Outpatient (AMB) | payer MEDICARE, MEDICAID, SELFPAY ==
--- NOTE | 2024-08-26 09:13 | MHC.OFFVIS ---
Vital Signs 08/26/24 09:14 Height 6 ft 3 in Weight 266 lb 12.149 oz BMI 33.3 BP 93/50 L Blood Pressure Location Lt brachial Position Sitting Pulse 73 Intake Visit Reasons: 6 month follow up Intake Note: Nitesh presents in the office as a 6 month follow up. CC: HE states that one of his medications seems to be making him dizzy. He takes it every AM and he gets up and will get a head sanderson. Even walking up and down the stairs due to the feeling. Telehealth Nurse Educator Required: No Allergies No Known Allergies Allergy (Verified 08/26/24 09:17) HPI HPI 6 month follow up: Details: 59-year-old male with pertinent history of permanent atrial fibrillation on anticoagulation, congestive heart failure with preserved ejection fraction, ventricular tachycardia status post ICD, alcohol use disorder, FARHEEN on CPAP, hypertension who I am seeing for f/u for anemia and abdominal pain. RECAP: seen as in-patient noted sudden onset burning type of epigastric pain radiating into the mid abdomen Pain is, 8/10 in severity with poor appetite, He says he had similar pain 10/2023 and was sent to [facility],. per scanned notes he had embolization of GDA due to alisha duodenal hematoma. He had a repeat admission in December and had egd and colo-he was told here was a polyp present but not removed. he was not put on PPI. HGB slightly lower than prior hb 11-->9 g/dl. Lipase mildly elevated [address] Ct imaging with colitis seen, and mid abdominal mesenteric haziness EGD:02/2024- normal He had further admission 07/2024 with acute pancreatitis and pseudocyst EGD: 05/09: MW tear, ulcer --had GIB colonoscopy 07/23/24- tubular adenoma, diverticulosis INTERIM: no more abdominal pain he is off eliquis as not needed--been off few weeks he gets head rushs occasionall,y but BP good at home no blood in stools no melena appetite is good alcohol --has some drinks yesterday due to super bowel EXAM: GENERAL: The patient is well developed and nontoxic. VITAL SIGNS:see workflow HEENT: Nonicteric sclerae, PERRLA, EOMI. Oropharynx clear. Moist mucous membranes. Conjunctivae appear well perfused. No thyroid mass. CHEST: Chest wall is nontender. HEART: Regular rate and rhythm without murmurs. LUNGS: Clear to auscultation bilaterally. ABDOMEN: Soft, positive bowel sounds, nontender, no organomegaly.no flank tenderness SKIN: No rash, no excessive bruising, petechiae, or purpura. NEUROLOGIC: Cranial nerves II-XII intact without motor/sensory deficit. Psych: normal affect A/P: 1/ anemia-stable 2/ pancreatitis - alcohol related, 4 cm pseudocyst 3/ colo polyps PLAN: 1/ advised strongly on alcohol cessation, 2/ repeat MRI in 2 months 3/ can take green tea or black coffee, stop smoking 4/ BP been low, advised to stop amlodipine and f/u with PCP 5/ rept colo 5 yrs PFS Medical History Pancreatic pseudocyst Acute pancreatitis Acute heart failure with preserved ejection fraction (HFpEF) Anemia Acute exacerbation of CHF (congestive heart failure) Morbid obesity Gastrointestinal bleeding History of cardioversion FARHEEN on CPAP Alcohol abuse HTN (hypertension) (HFpEF) heart failure with preserved ejection fraction Surgical History History of cardiac radiofrequency ablation History of esophagogastroduodenoscopy (EGD) Hx of colonoscopy Status post ORIF of fracture of ankle S/P hip replacement Family History Mother HTN (hypertension) Diabetes mellitus Father Diabetes mellitus HTN (hypertension) Maternal Uncle Colon cancer Social History Household Members: Significant Other Household Members Other:: GF, daughter Housing: Apartment Are you a primary field care advocate to a significant other at home: No Do you presently have visiting nurse or other home services: No Alcohol intake: former Comment: pt refusing high falls measures exc socks Patient Tobacco Use Status: Never used Tobacco e-Cigarette/Vaping Use: Never Used Second Hand Smoke Exposure: No Substance Use Type: Marijuana Advance Directives Date on File: 01/25/21 service: No Current occupational status: retired Current occupation: rt handed Cognitive needs: No Hearing needs: No Vision needs: No Physical Exam Vital Signs: Last Vital Signs Pulse 73 08/26/24 09:14 BP 93/50 L 08/26/24 09:14 BMI result Body Mass Index 33.3 Assessment & Plan Assessment & Plan (1) Pancreatitis: Code(s): K85.90 - Acute pancreatitis without necrosis or infection, unspecified Category: Medical Qualifiers: Acute pancreatitis complication: unspecified Chronicity: acute Pancreatitis type: alcohol induced Qualified Code(s): K85.20 - Alcohol induced acute pancreatitis without necrosis or infection Plan: see above Coding Level of Care Code Est Pt Level 4 (26456) Diagnoses Pancreatitis K85.20 Acute pancreatitis complication: unspecified Chronicity: acute Pancreatitis type: alcohol induced
[2024-08-26 09:14] VITALS: BP 93/50; PULSE 73; BMI 33.3
== END 2024-08-26 09:48 | disposition home or self-care (01) ==
PROVIDERS: PCP Nurse Practitioner Family; Visit Provider Internal Medicine Gastroenterology
DX: K85.20 Alcohol induced acute pancreatitis without necrosis or infection (principal)
CPT/HCPCS: 99214

== ENCOUNTER → 2024-08-26 09:07 | Outpatient (BNVA) | payer MEDICARE, MEDICAID, SELFPAY | PROVIDERS: PCP Nurse Practitioner Family; Visit Provider Internal Medicine Gastroenterology | DX: K85.20 Alcohol induced acute pancreatitis without necrosis or infection (principal) | CPT/HCPCS: 99212 ==

== ENCOUNTER 2024-08-27 09:07 | Outpatient (AMB) | payer MEDICARE, MEDICAID, SELFPAY ==
--- NOTE | 2024-08-27 09:09 | MHC.PC.OV ---
Vital Signs 08/27/24 09:11 Height 6 ft 3 in Weight 271 lb BMI 33.9 BP 100/60 Blood Pressure Location Lt brachial Position Sitting Pulse 78 Pulse Source Pulse Oximeter Temp 97.1 F Temp Source Skin Pulse Oximetry (%) 98 Oxygen Delivery Method Room Air Intake Visit Reasons: f/u GI bleed and AFIB Intake Note: Patient is here to follow up on GI bleed and AFIB. Complaint of right hip pain. Splash Line Operator Required: No Terminal Superintendent: Not Required per policy Accompanied by: Self / Same As Patient Allergies No Known Allergies Allergy (Verified 08/27/24 09:10) Medication List - Last Reconciled 08/27/24 by Liliane Mata PA-C blood pressure monitor (Blood Pressure Kit) As directed empagliflozin (Jardiance) 10 mg PO DAILY furosemide 40 mg PO DAILY metoprolol succinate ER (Toprol XL) 100 mg PO DAILY miscellaneous medical supply (Blood Pressure Cuff) As directed omeprazole 20 mg PO QAM ondansetron 4 mg PO Q8H PRN spironolactone 25 mg See Protocol PO DAILY valsartan 160 mg See Protocol PO BID Tobacco use date assessed: 08/27/24 Dental Screening Dental Screen Date: 08/27/24 Did you have a dental visit in the last 12 months?: Yes Did you have a dental problem in the last 6 months where you did not have access to dental care?: No Was dental information given to patient?: Patient has dentist HPI f/u GI bleed and AFIB HPI Details 59-year-old male with past medical history of hypertension, alcohol use disorder, atrial fibrillation on Eliquis, ICM with a pacemaker, heart failure with preserved EF, history of GI bleed who presents today for follow up. Patient was seen in [facility] ED 08/09/2024 had been seen a few days earlier and admitted and treated for acute pancreatitis and discharged home once stable and was presenting for worsening abdominal pain.? Patient was admitted for evaluation treatment of pancreatic pseudocyst with acute pancreatitis advised to follow up with GI.? Patient was seen by GI 08/26/2024 advised to abstain from alcohol, repeat MRI in 2 months, advised to discontinue amlodipine due to low blood pressure, and repeat colonoscopy in 5 years.? Saw Cardiology 08/13/2024 discontinued amiodarone and anticoagulation advised to continue on diuretics, Jardiance, valsartan and spironolactone in ordered for echocardiogram. Patient completed echocardiogram 08/21/2024 which showed normal ejection fraction 55-60%, mildly dilated ascending aorta at 4 cm and impaired relaxation filling pattern. Presenting with right hip pain, which is constant and worsens with certain activities and worse while lying down. A history of prior left hip replacement provided relief from similar symptoms. Dizziness has been noted and his GI specialist recently told him to hold Valsartan and Amlodipine due to hypotension. He reports compliance with lifestyle modifications post-pancreatitis and minimal alcohol intake recently. Denies abdominal pain, diarrhea or blood in the stools. PENDING SALE TO [facility] Medical History (Updated 08/27/24 @ 10:44 by Liliane Mata PA-C) Acute pancreatitis Pancreatic pseudocyst Acute heart failure with preserved ejection fraction (HFpEF) Anemia Acute exacerbation of CHF (congestive heart failure) Morbid obesity Gastrointestinal bleeding History of cardioversion FARHEEN on CPAP Alcohol abuse HTN (hypertension) (HFpEF) heart failure with preserved ejection fraction Surgical History History of cardiac radiofrequency ablation History of esophagogastroduodenoscopy (EGD) Hx of colonoscopy Status post ORIF of fracture of ankle S/P hip replacement Family History Mother HTN (hypertension) Diabetes mellitus Father Diabetes mellitus HTN (hypertension) Maternal Uncle Colon cancer Social History Household Members: Significant Other Household Members Other:: GF, daughter Housing: Apartment Are you a primary career development associate to a significant other at home: No Do you presently have visiting nurse or other home services: No Alcohol intake: former Comment: pt refusing high falls measures exc socks Patient Tobacco Use Status: Never used Tobacco e-Cigarette/Vaping Use: Never Used Second Hand Smoke Exposure: No Substance Use Type: Marijuana Advance Directives Date on File: 01/25/21 service: No Current occupational status: retired Current occupation: rt handed Cognitive needs: No Hearing needs: No Vision needs: No Questionnaire PHQ-9 Over the last 2 weeks, how often have you been bothered by any of the following problems? 1. Little interest or pleasure in doing things: not at all 2. Feeling down, depressed, or hopeless: not at all 3. Trouble falling or staying asleep, or sleeping too much: not at all 4. Feeling tired or having little energy: not at all 5. Poor appetite or overeating: not at all 6. Feeling bad about yourself - or that you are a failure or have let yourself or your family down: not at all 7. Trouble concentrating on things, such as reading the newspaper or watching television: not at all 8. Moving or speaking so slowly that other people could have noticed. Or the opposite - being so fidgety or restless that you have been moving around a lot more than usual: not at all 9. Thoughts that you would be better off or of hurting yourself in some way: not at all Total score: 0 Depression Screening Interpretation: Negative Depression Screening Done: Yes Source: Developed by Drs. Ace Beckwith, Evelyne Ramirez, Carlos Garcia and colleagues, with an educational yaz from [employer]. Thrive Questionnaire Date Thrive assessed: 08/09/24 AUDIT C Alcohol Use Questionnaire (AUDIT-C) 1. How often do you have a drink containing alcohol?: 2-3 times a week 2. How many drinks containing alcohol do you have on a typical day when you are drinking?: 1 or 2 Total Score: 3 DIEUDONNE-7 AMB Questionnaire DIEUDONNE-7 Date DIEUDONNE - 7 assessed: 08/27/24 Feeling nervous, anxious, or on edge: 0 = Not at all Not being able to stop or control worryin = Not at all Worrying too much about different things: 0 = Not at all Trouble relaxin = Not at all Being so restless that it is hard to sit still: 0 = Not at all Becoming easily annoyed or irritable: 0 = Not at all Feeling afraid as if something awful might happen: 0 = Not at all Total DIEUDONNE-7 score (0-4 normal; 5-9 mild; 10-14 moderate; 15-21 severe): 0 Source: Developed by Drs. Ace Beckwith, Evelyne Ramirez, Carlos Garcia and colleagues, with an educational yaz from [employer]. Review of Systems Const Denies body aches, Denies chills, Denies fever(s), Denies headache(s) and Denies poor appetite Eyes Reports no additional complaints ENT Denies dysphagia, Denies dizziness, Denies headache(s) and Denies odynophagia Card Denies chest pain, Denies syncope, Denies edema, Denies irregular heart rhythm, Denies lightheadedness and Denies dyspnea Resp Denies cough and Denies dyspnea GI Denies abdominal pain, Denies constipation, Denies dysphagia, Denies diarrhea, Denies nausea, Denies odynophagia and Denies vomiting Reports no additional complaints Musc Details: Right hip pain Reports no additional complaints and Reports abnormal gait Skin/Breast Reports system reviewed and no additional complaints, except as documented Neuro Reports abnormal gait, Denies dizziness, Denies syncope and Denies headache(s) Psych Reports no additional complaints Physical exam (Primary Care) Vital Signs: Last Vital Signs Temp 97.1 F 08/27/24 09:11 Pulse 78 08/27/24 09:11 BP 100/60 08/27/24 09:11 Pulse Ox 98 08/27/24 09:11 Oxygen Delivery Method Room Air 08/27/24 09:11 BMI result Body Mass Index 33.9 Tobacco/Smoking Status: Tobacco use Status Tobacco use date assessed 08/27/24 08/27/24 09:20 Patient Tobacco Use Status Never used Tobacco 08/27/24 09:20 Tobacco use type 02/28/23 13:31 e-Cigarette/Vaping Use Never Used 08/27/24 09:20 PHQ-9: PHQ-9 Score PHQ-9: Total score 0 08/27/24 10:40 Depression Screening Interpretation: Negative Thrive Assessment: Date of Thrive Assessment Date Thrive assessed 08/09/24 08/27/24 09:20 Const General: cooperative, healthy appearing, comfortable and no acute distress Orientation/consciousness: patient oriented x3 HENMT Head: Yes normocephalic Ears: hearing grossly normal bilaterally General nose exam: Normal external nose present Eyes General: appearance normal, both eyes and all related structures Conjunctivae: conjunctivae normal Neck Neck: Yes full ROM and Yes no lymphadenopathy Resp Effort & Inspection: normal respiratory effort Auscultation: clear to auscultation bilaterally, no crackles, no rales, no rhonchi and no wheezes Cardio Rate: regular rate Rhythm: regular rhythm Skin General skin exam: no rashes or lesions noted Neuro General: patient oriented x3 Gait exam (Neuro): Normal gait present Extrem General: Yes normal to inspection, Yes full ROM and No edema Psych Affect: normal affect Attitude: cooperative Insight: Good insight present (Psych) Judgement: Good judgement present (Psych) Coding Level of Care Code Est Pt Level 4 (50384) Diagnoses Right hip pain M25.551 PAF (paroxysmal atrial fibrillation) I48.0 HTN (hypertension) I10 (HFpEF) heart failure with preserved ejection fraction I50.30 Acute pancreatitis K85.90 Assessment & Plan Assessment & Plan (1) Right hip pain: Code(s): M25.551 - Pain in right hip Category: Medical Plan: I discussed with the patient the plan to obtain a right hip x-ray to evaluate the need for surgical intervention. A muscle relaxant was suggested for nighttime pain management, underscoring the side effect of drowsiness. (2) PAF (paroxysmal atrial fibrillation): Code(s): I48.0 - Paroxysmal atrial fibrillation Category: Medical Plan: Patient was recently discontinued off of amiodarone and anticoagulation. Continue to follow with Cardiology. (3) HTN (hypertension): Code(s): I10 - Essential (primary) hypertension Category: Medical Plan: We reviewed the reasons for stopping amlodipine and valsartan, and the importance of closely monitoring his blood pressure. Advised patient take blood pressure at home 3-4 times per week and report these values back to the office. Also plan to follow up in 6 weeks for blood pressure management. If patient is persistently lightheaded to reach out to the office before next appointment. (4) (HFpEF) heart failure with preserved ejection fraction: Code(s): I50.30 - Unspecified diastolic (congestive) heart failure Category: Medical Plan: Patient recently had echocardiogram done showing normal ejection fraction with impaired relaxation pattern. Continue to follow with Cardiology. Patient was recently discontinued off of the amlodipine and valsartan by GI specialist. Continue to monitor blood pressure at home and please reach out to the office if values are above 140/90. (5) Acute pancreatitis: Code(s): K85.90 - Acute pancreatitis without necrosis or infection, unspecified Category: Medical Plan: Patient is asymptomatic at this time. We talked about his alcohol use, and I emphasized the importance of maintaining abstinence to prevent pancreatitis recurrence. Continue to follow with GI Plan Patient was informed and verbally consented to the use of an ambient scribe for clinic note documentation during this visit. This note was constructed using voice recognition software. While every effort has been made to ensure accuracy and clarifier operator, still areas may have been included sometimes these areas may affect the content or meeting of the given symptoms. Total time spent caring for the patient today was 20 minutes. This includes time spent before the visit reviewing the chart, time spent during the visit, and time spent after the visit and documentation. Orders: Orders XR hip RT min 2V Today M25.551 - Pain in right hip Medications: New cyclobenzaprine 5 mg PO BEDTIME PRN 20 tabs 0RF muscle spasm Refilled metoprolol succinate ER (Toprol XL) 100 mg PO DAILY 90 tabs 3RF On Hold valsartan Hold Comment: Doctor's Order 160 mg See Protocol PO BID 180 tabs 3RF
[2024-08-27 09:11] VITALS: BP 100/60; PULSE 78; TEMP 36.2; O2SAT 98; BMI 33.9
== END 2024-08-27 09:51 | disposition home or self-care (01) ==
PROVIDERS: PCP Nurse Practitioner Family
DX: M25.551 Pain in right hip (principal); I48.0 Paroxysmal atrial fibrillation; I10 Essential (primary) hypertension; I50.30 Unspecified diastolic (congestive) heart failure; K85.90 Acute pancreatitis without necrosis or infection, unspecified

== ENCOUNTER → 2024-08-27 09:07 | Outpatient (BNVA) | payer MEDICARE, MEDICAID, SELFPAY | PROVIDERS: PCP Nurse Practitioner Family | DX: M25.551 Pain in right hip (principal); I48.0 Paroxysmal atrial fibrillation; I11.0 Hypertensive heart disease with heart failure; I50.30 Unspecified diastolic (congestive) heart failure; K85.90 Acute pancreatitis without necrosis or infection, unspecified | CPT/HCPCS: 99212 ==

== ENCOUNTER 2024-08-29 10:50 | Outpatient (REF) | payer MEDICARE, MEDICAID, SELFPAY ==
--- NOTE | ~2024-08-29 | XR_ITS ---
EXAMINATION: XR HIP, RIGHT CLINICAL INFORMATION: M25.551 - Pain in right hip COMPARISON: None available. TECHNIQUE: Two views of the right hip. FINDINGS: There is subchondral cyst formation asymmetric joint space narrowing and sclerosis and the articular surface of the right acetabulum and right femoral head. No acute cortical disruption or gross malalignment. No lytic or blastic lesions. XR/XR hip RT min 2V IMPRESSION: Moderate osteoarthrosis, right hip. Electronically signed by: Javid Benz MD 08/29/2024 11:24 AM [facility]
--- OUTSIDE RECORDS SUMMARY | 2024-08-29 11:33 | XMS_ITS | Encounter Summary ---
Author Organization [facility] Address [address] [place] [address] Care Team Providers Care Refinery Operator Light Ends Recovery Name Role Phone Unavailable Primary Care Provider Unavailabl e Reason for Visit * Reason Comments Med Change Request Encounter Details Date Type Department Care Team (Late st Contact Info) Description 03/23/2023 Refill [facility] [place] [address] [facility], [place], [place] [id number] Santi Mirza MD [address] [id number] Med Change Request Social History [...] your living situation today? I have a [facility] place to live 02/20/2023 Interpersonal Safety Answer [...]
--- OUTSIDE RECORDS SUMMARY | 2024-08-29 11:33 | XMS_ITS | Clinical Summary ---
Author Organization [facility] [address] [facility] Address [address] [place] [address] Phone Care Team Providers Care Web Methods Developer Name Role Phone Unavailable Primary Care Provider [...] your living situation today? I have a [facility] place to live 02/20/2023 Interpersonal Safety [...] this topic Medical Devices Implanted Type Area Estate Manager Device Identifier Shelf Expiration Date Model / Serial / Lot Lead Sprint Quattro [id number] - [id number] Implanted:Qty: 1 on 02/21/2023 by Justus Beyer MD at [facility] [address] Implant Right: [employer] 11/24/2024 [id number] / [id number] / [id number] Envelope Absorbable Antibacterial [id number] - [id number] Implanted:Qty: 1 on 02/21/2023 by Justus Beyer MD at [facility] [address] Implant Left: Chest Wall [employer] 11/26/2023 [id number] / / [id number] Icd Jensen Mri Vr Single Df4 - [id number] Implanted:Qty: 1 on 02/21/2023 by Justus Beyer MD at [facility] [address] Implant Left: Chest [employer] 07/13/2024 [id number] / [id number] S / [id number] Procedures Procedure Name Priority Date/Time Associated Diagnosis Comments BASIC METABOLIC PANEL Routine 02/21/2023 6:10 AM EDT from Last 3 Months or Most Recently Relevant to Health Maintenance Results * Basic metabolic panel (02/21/2023 6:10 AM EDT) [facility] Glucose 79 65 - 110 mg/dL 02/21/2023 6:50 AM EDT + [facility] Comment: Non-fasting: ??65-110 mg/dL Fasting (minimum 6 hrs): ??65-99 mg/dL BUN 10 7 - 18 mg/dL 02/21/2023 6:50 AM EDT + [facility] Creatinine 0.89 0.70 - 1.30 mg/dL 02/21/2023 6:50 AM EDT + [facility] Sodium 138 136 - 145 mmol/L 02/21/2023 6:50 AM EDT + [facility] Potassium 4.2 3.5 - 5.1 mmol/L 02/21/2023 6:50 AM EDT [facility] Comment:Specimen slightly he molyzed. Chloride 104 98 - 107 mmol/L 02/21/2023 6:50 AM EDT + [facility] CO2 27 21 - 32 mmol/L 02/21/2023 6:50 AM EDT + [facility] Anion Gap 7 5 - 15 mmol/L 02/21/2023 6:50 AM EDT [facility] Calcium 9.4 8.5 - 10.1 mg/dL 02/21/2023 6:50 AM EDT [facility] eGFR (Creatinine) >60 >=60 mL/min/1.7 3m2 02/21/2023 6:50 AM EDT [facility] Comment: Values < 60 mL/min/1.73 m2 may indicate CKD if present for more than three months AND creatinine is at steady state. The eGFR provides a rough estimate of kidney function. On 03/01/22 all [facility] Clinical Labs and Epic began using a [id number] formula for estimating GFR called CKD-EPI Creatinine 2020. This equation reports eGFR based on creatinine, patient age, clinical sex, and is standardized to a body surface area of 1.73 m2. For the same creatinine, this new race-free eGFR will be lower than prior reported Black eGFR results and higher than prior Non-Black eGFR results. For further guidance, please refer to the CKD: Adult Exhibit Electrician Signature pathway. Blood Venipuncture / Unknown 02/21/2023 6:10 AM EDT 02/21/2023 6:22 AM EDT Alessandro Og MD LAB BLOOD ORDERABLES Final Result [facility] [address] [place] [address] from Last 3 Months or Most Recently Relevant to Health Maintenance Insurance [facility] MED[facility]ARE [facility] MEDICARE [facility] MEDICARE Advance Directives * Full Code (Latest Code Status on File) Date Activated Date Inactivated Comments 02/19/2023 1:39 AM 02/23/2023 7:02 PM
--- OUTSIDE RECORDS SUMMARY | 2024-08-29 11:33 | XMS_ITS | Clinical Summary ---
Author Organization [facility] Address [address] [place] [address] Care Team Providers Care Sink Maker Name Role Phone Cecy García Primary Care Provider [phone] Allergies No known active allergies Medications amiodarone [...] to have alisha-duodenal hematoma so transferred to [facility]. With hypotension and lactic acidosis initially improved after 2 units of PRBCs. CTA at [facility] showed large hematoma involving the second [...] to have alisha-duodenal hematoma so transferred to [facility]. With hypotension and lactic acidosis initially improved [...] PM EDT): Patient had prior admission to [place] in February of last year where he [...] During his admission in February 2023 at [place] he had alcohol withdrawal through day 5 [...] PM EDT): Status post 2 cardioversions at [place]. Continue with Eliquis. Continue with amiodarone for [...] elevation and prior normal colonoscopy reported at [facility] 8 years ago warranting return for [...] in place. Patient had prior admission to [place] in February of last year where he [...] this. - Cont outpatient follow up Immunizations Immunization Administration Dates Next Due Influenza, Injectable, Quadr [...] Vaccine: Pediatric (0-5 Years) and At-Risk Patients (6-50 Years) Aged Out No longer eligible based on patient's age to complete this topic Medical Devices Implanted Type Area Coverer Device Identifier Shelf Expiration Date Model / Serial / Lot Soft 4x30 Embold - [id number] Implanted:Qty: 1 on 10/15/2023 at [facility] Implant [employer] [id number] 05/23/2026 [id number] / / [id number] Soft 4x30 Embold - [id number] Implanted:Qty: 1 on 10/15/2023 by Jeffrey Srivastava MD at [facility] Implant [employer] [id number] 03/08/2024 [id number] / / [id number] Soft 5x30 Embold - [id number] Implanted:Qty: 1 on 10/15/2023 by Jeffrey Srivastava MD at [facility] Implant [employer] [id number] / / Coil Embolization Fibered Detachable Us 5x15 Embold - [id number] Implanted:Qty: 1 on 10/15/2023 by Jeffrey Srivastava MD at [facility] Implant [employer] [id number] / / Device Closure Vascular Plug 6fr Angio-Seal Vip - [id number] Implanted:Qty: 1 on 10/15/2023 by Jeffrey Srivastava MD at [facility] Implant Right: Groin [employer] [id number] 06/18/2024 [id number] / / [id number] Procedures * Due to [place] state law, this organization might not be sharing negative HIV tests. Procedure Name Priority Date/Time Associated Diagnosis Comments COMPREHENSIVE METABOLIC PANEL Routine 01/10/2024 5:49 AM EDT COLONOSCOPY 01/09/2024 from Last 3 Months or Most Recently Relevant to Health Maintenance Results * Due to [place] state law, this organization might not be sharing negative HIV tests. * (ABNORMAL) Comprehensive metabolic panel (01/10/2024 5:49 AM EDT) NA 139 135 - 145 mmol/L 01/10/2024 8:46 AM EDT [facility] K 3.4(L) 3.5 - 5.3 mmol/L 01/10/2024 8:46 AM EDT [facility] Cl 103 98 - 107 mmol/L 01/10/2024 8:46 AM EDT [facility] CO2 26 24 - 32 mmol/L 01/10/2024 8:46 AM EDT [facility] Anion Gap 10 5 - 15 01/10/2024 8:46 AM EDT [facility] Glucose 89 65 - 99 mg/dL 01/10/2024 8:46 AM EDT [facility] Creatinine 0.86 0.60 - 1.30 mg/dL 01/10/2024 8:46 AM EDT [facility] Calcium 8.5(L) 8.6 - 10.5 mg/dL 01/10/2024 8:46 AM EDT [facility] Total Protein 5.8(L) 6.0 - 8.0 g/dL 01/10/2024 8:46 AM EDT [facility] Albumin 3.4(L) 3.5 - 5.2 g/dL 01/10/2024 8:46 AM EDT [facility] Bilirubin, Total 0.4 0.2 - 1.2 mg/dL 01/10/2024 8:46 AM EDT [facility] Alkaline Phosphatase 65 35 - 129 U/L 01/10/2024 8:46 AM EDT [facility] AST 14 10 - 40 U/L 01/10/2024 8:46 AM EDT [facility] ALT 13 10 - 40 U/L 01/10/2024 8:46 AM EDT [facility] BUN 7 7 - 23 mg/dL 01/10/2024 8:46 AM EDT [facility] eGFR >90 >=60 mL/min/1. 73m2 01/10/2024 8:46 AM EDT [facility] Comment:The estimated glomer [...] - 4.2 g/dL 01/10/2024 8:46 AM EDT [facility] A/G Ratio 1.4(L) 1.5 - 3.0 01/10/2024 8:46 AM EDT [facility] Blood Structure of peripheral vein / Unknown Venipuncture / Unknown 01/10/2024 5:49 AM EDT 01/10/2024 7:58 AM EDT us Arturo Perez MD LAB BLOOD ORDERABLES Final Result [facility] [address] [place] [address], * COLONOSCOPY (01/09/2024) Narrative Procedure Note Leah Correa MD - 01/09/2024 10:13 AM EDT [facility] Gastroenterology Patient Name: Nitesh Osorio Procedure Date: 01/09/2024 10:13 AM Date of : 1965 Admit Type: Inpatient Age: 58 Room: [place] [address] Gender: Male Note Status: Finalized Attending MD: [...] Most Recently Relevant to Health Maintenance Insurance [facility] Advance Directives Documents on File Type Date Recorded Patient Hatch Boss Expl anation Health Care Proxy 10/17/2023 9:51 [...] ( Lue ) Devon Sister Alternate H [facility] Care Agent Care Teams Sink Maker Relationship Specialty Start Date End Date Cecy García PCP - General Internal Medicine 10/27/23
--- OUTSIDE RECORDS SUMMARY | 2024-08-29 11:33 | XMS_ITS | Clinical Summary ---
Author Organization [facility] Address [address] [place] [id number] Care Team Providers Care Inclusion Special Educator Name Role Phone Cecy García MD Primary Care Provider [phone] Active Problems Problem Noted Date Diagnosed Date Hypertension 06/10/2019 Bilateral knee pain 01/18/2018 Surgical History Surgery Date Site/Laterality Comments ANKLE FRACTURE SURGERY PROCEDURE: MT OPEN TREATMENT MEDIAL MALLEOLUS FRACTURE KNEE ARTHROSCOPY W/ MENISCAL REPAIR PROCEDURE: MT ARTHROSCOPY KNEE W/MENISCUS RPR MEDIAL/LATERAL Family History [...] at Not on file Legal Sex Male 2:11 AM EST Gender Identity Not on file Sexual Orientation Not on file Obstetrics History Plan of Treatment Health Maintenance Due Date Last Done Comments DTaP,Tdap,and Td Vaccines (1 - Tdap) 1986 Hepatitis B Vaccines (1 of 3 - 19+ 3-dose series) 1986 Pneumococcal Vaccine: 50+ Ye ars (1 of 1 - PCV) 2017 Zoster Vaccines (1 of 2) 2017 Depression Screening 06/25/2022 HIV Screening 06/25/2022 Social Influencers of Health Screening 06/25/2022 Cholesterol Screening (Lipid Panel) 03/13/2024 03/13/2019 COVID-19 Vaccine (1 - 2023-2 5 season) 2024 Influenza Vaccine [...] patient's age to complete this topic Meningococcal B Vacine Aged Out No lo nger eligible based on patient's age to complete [...] Test (01/10/2024) Annual BMP Blood Test abstracted us Historical Provider HEALTH MAINTENANCE Final Result * Hepatitis C Screening (10/15/2023) Pathologist [facility] Hepatitis C Screening abstracted Historical Provider HEALTH MAINTENANCE Final Result * (ABNORMAL) Lipid panel (03/13/2019) [facility] LDL/HDL Ratio 3 0 - 4 Triglycerides 54 0 - 150 mg/dL Cholesterol 189 0 - 200 mg/dL HDL 57 >=40 mg/dL LDL Cholesterol 122(A) 0 - 100 mg/dL Blood Venous blood specimen / Unknown Historical Provider LAB BLOOD ORDERABLES Lore l Result * Colonoscopy (11/19/2018) Pathologist [facility] Colonoscopy normal, abstracted Anatomical Region Laterality Modality Other Historical Provider HEALTH MAINTENANCE Final Result from Last 3 Months or Most Recently Relevant to Health Maintenance Care Teams Inclusion Special Educator Relationship Specialty Start Date End Date Cecy García MD [address] [place] [id number] PCP - General Internal Medicine 10/30/17
--- OUTSIDE RECORDS SUMMARY | 2024-08-29 11:33 | XMS_ITS | Referral Summary ---
Author Organization [facility] Address [address] [place] [address] Care Team Providers Care Rn Hospice Name Role Phone Cecy García Primary Care Provider [phone] Allergies No known active allergies Medications amiodarone [...] to have alisha-duodenal hematoma so transferred to [facility]. With hypotension and lactic acidosis initially improved after 2 units of PRBCs. CTA at [facility] showed large hematoma involving the [...] to have alisha-duodenal hematoma so transferred to [facility]. With hypotension and lactic acidosis initially [...] PM EDT): Patient had prior admission to [place] in February of last year where he [...] During his admission in February 2023 at [place] he had alcohol withdrawal through day 5 [...] PM EDT): Status post 2 cardioversions at [place]. Continue with Eliquis. Continue with amiodarone for [...] elevation and prior normal colonoscopy reported at [facility] 8 years ago warranting return for [...] in place. Patient had prior admission to [place] in February of last year where he [...] Rectal polyp Medical Devices Implanted Type Area Laundromat Worker Device Identifier Shelf Expiration Date Model / Serial / Lot Soft 4x30 Embold - [id number] Implanted:Qty: 1 on 10/15/2023 at [facility] Implant [employer] [id number] 05/23/2026 [id number] / / [id number] Soft 4x30 Embold - [id number] Implanted:Qty: 1 on 10/15/2023 by Jeffrey Srivastava MD at [facility] Implant [employer] [id number] 03/08/2024 [id number] / / [id number] Soft 5x30 Embold - [id number] Implanted:Qty: 1 on 10/15/2023 by Jeffrey Srivastava MD at [facility] Implant [facility] [id number] / / Coil Embolization Fibered Detachable Us 5x15 Embold - [id number] Implanted:Qty: 1 on 10/15/2023 by Jeffrey Srivastava MD at [facility] Implant [facility] [id number] / / Device Closure Vascular Plug 6fr Angio-Seal Vip - [id number] Implanted:Qty: 1 on 10/15/2023 by Jeffrey Srivastava MD at [facility] Implant Right: Groin [employer] [id number] 06/18/2024 [id number] / / [id number] Procedures * Due to [place] [employer] law, this organization might not be sharing negative HIV tests. Procedure Name Priority Date/Time Associated Diagnosis Comments COMPREHENSIVE METABOLIC PANEL Routine 01/10/2024 5:49 AM EDT COLONOSCOPY 01/09/2024 from Last 3 Months or Most Recently Relevant to Health Maintenance Results * Due to [place] [employer] law, this organization might not be sharing negative HIV tests. * (ABNORMAL) Comprehensive metabolic panel (01/10/2024 5:49 AM EDT) NA 139 135 - 145 mmol/L 01/10/2024 8:46 AM EDT [facility] K 3.4(L) 3.5 - 5.3 mmol/L 01/10/2024 8:46 AM EDT [facility] Cl 103 98 - 107 mmol/L 01/10/2024 8:46 AM EDT [facility] CO2 26 24 - 32 mmol/L 01/10/2024 8:46 AM EDT [facility] Anion Gap 10 5 - 15 01/10/2024 8:46 AM EDT [facility] Glucose 89 65 - 99 mg/dL 01/10/2024 8:46 AM EDT [facility] Creatinine 0.86 0.60 - 1.30 mg/dL 01/10/2024 8:46 AM EDT [facility] Calcium 8.5(L) 8.6 - 10.5 mg/dL 01/10/2024 8:46 AM EDT [facility] Total Protein 5.8(L) 6.0 - 8.0 g/dL 01/10/2024 8:46 AM EDT [facility] Albumin 3.4(L) 3.5 - 5.2 g/dL 01/10/2024 8:46 AM EDT [facility] Bilirubin, Total 0.4 0.2 - 1.2 mg/dL 01/10/2024 8:46 AM EDT [facility] Alkaline Phosphatase 65 35 - 129 U/L 01/10/2024 8:46 AM EDT [facility] AST 14 10 - 40 U/L 01/10/2024 8:46 AM EDT [facility] ALT 13 10 - 40 U/L 01/10/2024 8:46 AM EDT [facility] BUN 7 7 - 23 mg/dL 01/10/2024 8:46 AM EDT [facility] eGFR >90 >=60 mL/min/1. 73m2 01/10/2024 8:46 AM EDT [facility] Comment:The estimated glomer ular [...] - 4.2 g/dL 01/10/2024 8:46 AM EDT [facility] A/G Ratio 1.4(L) 1.5 - 3.0 01/10/2024 8:46 AM EDT [facility] Blood Structure of peripheral vein / Unknown Venipuncture / Unknown 01/10/2024 5:49 AM EDT 01/10/2024 7:58 AM EDT us Arturo Perez MD LAB BLOOD ORDERABLES Final Result [facility] [address] [place] [address], [place] * COLONOSCOPY (01/09/2024) Narrative Procedure Note Leah Correa MD - 01/09/2024 10:13 AM EDT [facility] Gastroenterology Patient Name: Nitesh Osorio Procedure Date: 01/09/2024 10:13 AM Date of : 1965 Admit Type: Inpatient Age: 58 Room: [facility] Gender: Male Note Status: Finalized Attending [...] Most Recently Relevant to Health Maintenance Insurance [id number] Advance Directives Documents on File Type Date Recorded Patient Reading Aide Expl [facility] Health Care Proxy 10/17/2023 9:51 AM [...] ( Fabian ) Devon Sister Alternate H [facility] Care Agent Care Teams Rn Hospice Relationship Specialty Start Date End Date Cecy García PCP - General Internal Medicine 10/27/23
--- OUTSIDE RECORDS SUMMARY | 2024-08-29 11:33 | XMS_ITS | Encounter Summary ---
Author Organization [facility] Address [address] [place] [address] Care Team Providers Care Turnstile Attendant Name Role Phone Unavailable Primary Care Provider Unavailabl e Reason for Visit * Reason Comments Medication Refill Encounter Details Date Type Department Care Team (Late st Contact Info) Description 04/14/2024 Refill [facility] [place] [address] [facility], [place], [place] [id number] Santi Mirza MD [address] [phone] Medication Refill Social History Tobacco [...] your living situation today? I have a [facility] place to live 02/20/2023 Interpersonal Safety [...]
--- OUTSIDE RECORDS SUMMARY | 2024-08-29 11:33 | XMS_ITS | Encounter Summary ---
Author Organization [facility] Address [address] [place] [address] Care Team Providers Care Drying Machine Tender Name Role Phone Unavailable Primary Care Provider Unavailabl e Reason for Visit * Reason Comments Medication Refill Encounter Details Date Type Department Care Team (Late st Contact Info) Description 04/14/2023 Refill [facility] [place] [address] [facility], [place], [place] [phone] Santi Mirza MD [address] [phone] Medication Refill Social History Tobacco [...] your living situation today? I have a [facility] place to live 02/20/2023 Interpersonal Safety [...]
--- OUTSIDE RECORDS SUMMARY | 2024-08-29 11:33 | XMS_ITS | Encounter Summary ---
Author Organization [facility] Address [address] [place] [address] Care Team Providers Care Purchase Price Analyst Name Role Phone Unavailable Primary Care Provider Unavailabl e Encounter Details Date Type Department Care Team (Late st Contact Info) Description 03/22/2023 Scanned Document [facility] [place] [address] [facility], [address] [place] [id number] Provider, Historical . Social History Tobacco Use [...] your living situation today? I have a [facility] place to live 02/20/2023 Interpersonal [...]
== END 2024-08-29 10:51 | disposition home or self-care (01) ==
LOC: HO.XRAY 10:50
DX: M25.551 Pain in right hip (principal)
CPT/HCPCS: 73502

== ENCOUNTER → 2024-08-29 10:53 | Outpatient (BNV) | payer MEDICARE, MEDICAID, SELFPAY | PROVIDERS: Visit Provider Radiology Diagnostic Radiology | DX: M16.11 Unilateral primary osteoarthritis, right hip (principal) | CPT/HCPCS: 73502 ==

== ENCOUNTER → 2024-09-12 23:59 | Outpatient (BNV) | payer MEDICARE, MEDICAID, SELFPAY ==
--- NOTE | 2024-09-12 12:30 | MHC.OFFVIS ---
Intake Visit Reasons: Remote HF monitoring- [employer] Allergies No Known Allergies Allergy (Verified 08/27/24 09:10) [facility] Medical History (Updated 08/30/24 @ 10:49 by Liliane Mata PA-C) Acute pancreatitis Pancreatic pseudocyst Acute heart failure with preserved ejection fraction (HFpEF) Anemia Acute exacerbation of CHF (congestive heart failure) Morbid obesity Gastrointestinal bleeding History of cardioversion FARHEEN on CPAP Alcohol abuse HTN (hypertension) (HFpEF) heart failure with preserved ejection fraction Surgical History History of cardiac radiofrequency ablation History of esophagogastroduodenoscopy (EGD) Hx of colonoscopy Status post ORIF of fracture of ankle S/P hip replacement Family History Mother HTN (hypertension) Diabetes mellitus Father Diabetes mellitus HTN (hypertension) Maternal Uncle Colon cancer Social History Household Members: Significant Other Household Members Other:: GF, daughter Housing: Apartment Are you a primary janitor caretaker to a significant other at home: No Do you presently have visiting nurse or other home services: No Alcohol intake: former Comment: pt refusing high falls measures exc socks Patient Tobacco Use Status: Never used Tobacco e-Cigarette/Vaping Use: Never Used Second Hand Smoke Exposure: No Substance Use Type: Marijuana Advance Directives Date on File: 01/25/21 service: No Current occupational status: retired Current occupation: rt handed Cognitive needs: No Hearing needs: No Vision needs: No Office Procedures Cardiac Device Check Cardiac Device Check Details: Date of service- 09/12/2024; based on impedance data and physiological variables, there is no evidence of worsening congestive heart failure. [id number] Cardiac Device Interrogation, cardio physiologic monitor Procedure code (CPT) selection complete Assessment & Plan Assessment & Plan (1) ICD (implantable cardioverter-defibrillator) in place: Code(s): Z95.810 - Presence of automatic (implantable) cardiac defibrillator Category: Medical (2) NICM (nonischemic cardiomyopathy): Code(s): I42.8 - Other cardiomyopathies Category: Medical (3) (HFpEF) heart failure with preserved ejection fraction: Code(s): I50.30 - Unspecified diastolic (congestive) heart failure Category: Medical Plan x Coding Level of Care Code Procedure Only Diagnoses ICD (implantable cardioverter-defibrillator) in place Z95.810 NICM (nonischemic cardiomyopathy) I42.8 (HFpEF) heart failure with preserved ejection fraction I50.30 CPT Codes Cardiac Device Check - Cardiac Device 15: [id number] Cardiac Device Interrogation, cardio physiologic monitor ([id number])
== END ==
PROVIDERS: Visit Provider Internal Medicine
DX: I42.8 Other cardiomyopathies (principal); I50.30 Unspecified diastolic (congestive) heart failure; Z95.810 Presence of automatic (implantable) cardiac defibrillator
CPT/HCPCS: 93297

== ENCOUNTER 2024-10-01 10:49 | Outpatient (AMB) | payer MEDICARE, MEDICAID, SELFPAY ==
--- NOTE | 2024-10-01 10:51 | A.OFFPC_ITS ---
Vital Signs 10/01/24 10:52 Height 6 ft 3 in Weight 271 lb 8 oz BMI 33.9 BP 136/80 Blood Pressure Location Rt brachial Position Sitting Temp 97.3 F Temp Source Temporal Artery Scan Intake Visit Reasons: f/u HTN Intake Note: Patient is here to follow up on HTN. Complaint of right hip pain and lump on left elbow. Case Management Coordinator Required: No Finishing And Shipping Supervisor: Not Required per policy Accompanied by: Self / Same As Patient Allergies No Known Allergies Allergy (Verified 10/01/24 11:31) Medication List - Last Reconciled 10/01/24 by Liliane Mata PA-C blood pressure monitor (Blood Pressure Kit) As directed cyclobenzaprine 5 mg PO BEDTIME PRN empagliflozin (Jardiance) 10 mg PO DAILY furosemide 40 mg PO DAILY metoprolol succinate ER (Toprol XL) 100 mg PO DAILY miscellaneous medical supply (Blood Pressure Cuff) As directed omeprazole 20 mg PO QAM ondansetron 4 mg PO Q8H PRN spironolactone 25 mg See Protocol PO DAILY valsartan 160 mg See Protocol PO BID Tobacco use date assessed: 10/01/24 Dental Screening Dental Screen Date: 08/27/24 HPI f/u HTN HPI Details 59-year-old male with past medical histo ry of hypertension, alcohol use disorder, atrial fibrillation on Eliquis, ICM with pacemaker, heart failure with preserved ejection fraction, history of GI bleed last seen 08/2024 coming in for follow up.? In review of the notes, patient was seen by Cardiology 08/2024 for monitoring of implantable device. Presenting with chronic hip pain and right elbow swelling. Describes chronic hip pain related to osteoarthritis, primarily in the right hip. Noted progressively worsened pain impeding mobility, becoming apparent after minimal activity. Arthritis was confirmed on x-ray. Scheduled for MRI on October 24 for independent abdominal issue; follow-up visit with orthopedics for hip arthritis evaluation on October 17. Right elbow swelling identified as bursitis, showing initial soreness which subsided, but persisting non-tender swelling. Patient concerned by appearance rather than pain. [facility] Medical History Acute pancreatitis Pancreatic pseudocyst Acute heart failure with preserved ejection fraction (HFpEF) Anemia Acute exacerbation of CHF (congestive heart failure) Morbid obesity Gastrointestinal bleeding History of cardioversion FARHEEN on CPAP Alcohol abuse HTN (hypertension) (HFpEF) heart failure with preserved ejection fraction Surgical History History of cardiac radiofrequency ablation History of esophagogastroduodenoscopy (EGD) Hx of colonoscopy Status post ORIF of fracture of ankle S/P hip replacement Family History Mother HTN (hypertension) Diabetes mellitus Father Diabetes mellitus HTN (hypertension) Maternal Uncle Colon cancer Social History Household Members: Significant Other Household Members Other:: GF, daughter Housing: Apartment Are you a primary career development associate to a significant other at home: No Do you presently have visiting nurse or other home services: No Alcohol intake: former Comment: pt refusing high falls measures exc socks Patient Tobacco Use Status: Never used Tobacco e-Cigarette/Vaping Use: Never Used Second Hand Smoke Exposure: No Substance Use Type: Marijuana Advance Directives Date on File: 01/25/21 service: No Current occupational status: retired Current occupation: rt handed Cognitive needs: No Hearing needs: No Vision needs: No Questionnaire Thrive Questionnaire Date Thrive assessed: 08/09/24 DIEUDONNE-7 AMB Questionnaire DIEUDONNE-7 Date DIEUDONNE - 7 assessed: 08/27/24 Source: Developed by Drs. Ace Beckwith, Evelyne Ramirez, Carlos Garcia and colleagues, with an educational yaz from [employer]. Review of Systems Const Denies body aches, Denies chills, Denies fever(s), Denies headache(s) and Denies poor appetite Eyes Reports no additional complaints ENT Denies dysphagia, Denies dizziness, Denies headache(s) and Denies odynophagia Card Denies chest pain, Denies syncope, Denies edema, Denies irregular heart rhythm, Denies lightheadedness and Denies dyspnea Resp Denies cough and Denies dyspnea GI Denies abdominal pain, Denies constipation, Denies dysphagia, Denies diarrhea, Denies nausea, Denies odynophagia and Denies vomiting Reports no additional complaints Musc Reports no additional complaints and Denies abnormal gait Skin/Breast Reports system reviewed and no additional complaints, except as documented Neuro Denies abnormal gait, Denies dizziness, Denies syncope and Denies headache(s) Psych Reports no additional complaints Physical exam (Primary Care) Vital Signs: Last Vital Signs Temp 97.3 F 10/01/24 10:52 BP 136/80 10/01/24 10:52 BMI result Body Mass Index 33.9 Tobacco/Smoking Status: Tobacco use Status Tobacco use date assessed 10/01/24 10/01/24 10:53 Patient Tobacco Use Status Never used Tobacco 10/01/24 10:53 Tobacco use type 02/28/23 13:31 e-Cigarette/Vaping Use Never Used 10/01/24 10:53 Thrive Assessment: Date of Thrive Assessment Date Thrive assessed 08/09/24 10/01/24 10:53 Const General: cooperative, healthy appearing, comfortable and no acute distress Orientation/consciousness: patient oriented x3 HENMT Head: Yes normocephalic Ears: hearing grossly normal bilaterally General nose exam: Normal external nose present Eyes General: appearance normal, both eyes and all related structures Conjunctivae: conjunctivae normal Neck Neck: Yes full ROM and Yes no lymphadenopathy Resp Effort & Inspection: normal respiratory effort Auscultation: clear to auscultation bilaterally, no crackles, no rales, no rhonchi and no wheezes Cardio Rate: regular rate Rhythm: regular rhythm Skin General skin exam: no rashes or lesions noted Neuro General: patient oriented x3 Gait exam (Neuro): Normal gait present Extrem Other: fluctuant, non tender, non erythematous mass of the left elbow consistent with bursitis General: Yes normal to inspection, Yes full ROM and No edema Psych Affect: normal affect Attitude: cooperative Insight: Good insight present (Psych) Judgement: Good judgement present (Psych) Coding Level of Care Code Est Pt Level 4 (34184) Diagnoses Osteoarthritis of right hip M16.11 PAF (paroxysmal atrial fibrillation) I48.0 FARHEEN on CPAP G47.33; Z99.89 HTN (hypertension) I10 Olecranon bursitis of left elbow M70.22 Assessment & Plan Assessment & Plan (1) Osteoarthritis of right hip: Code(s): M16.11 - Unilateral primary osteoarthritis, right hip Category: Medical Plan: Patient has a appointment with Orthopedics coming up to evaluate osteoarthritis of the right hip. Patient not currently on blood thinners and kidney function adequate recommend the use of meloxicam as needed for pain. (2) PAF (paroxysmal atrial fibrillation): Code(s): I48.0 - Paroxysmal atrial fibrillation Category: Medical Plan: Continue to follow with Cardiology currently on metoprolol for rate management. (3) FARHEEN on CPAP: Code(s): G47.33 - Obstructive sleep apnea (adult) (pediatric); Z99.89 - Dependence on other enabling machines and devices Category: Medical Plan: Uses CPAP faithfully at least 4 hours a night and benefits from this therapy. (4) HTN (hypertension): Code(s): I10 - Essential (primary) hypertension Category: Medical Plan: Continue on current blood pressure medication. Avoid salt intake and encourage healthy diet and regular exercise. (5) Olecranon bursitis of left elbow: Code(s): M70.22 - Olecranon bursitis, left elbow Category: Medical Plan: Ice, heat treatment, and compression application are prescribed for the right elbow swelling due to bursitis. I discussed with the patient we do not routinely aspirate bursitis due to risk of infection and the swelling should go down over time. In the meantime conservative therapy is advised. Plan This note was constructed using voice recognition software. While every effort has been made to ensure accuracy and tone cabinet assembler, still areas may have been included sometimes these areas may affect the content or meeting of the given symptoms. Total time spent caring for the patient today was 20 minutes. This includes time spent before the visit reviewing the chart, time spent during the visit, and time spent after the visit and documentation. Patient was informed and verbally consented to the use of an ambient scribe for clinic note documentation during this visit. Medications: New meloxicam 15 mg PO DAILY 30 tabs 0RF
[2024-10-01 10:52] VITALS: BP 136/80; TEMP 36.3; BMI 33.9
--- OUTSIDE RECORDS SUMMARY | 2024-10-01 12:51 | XMS_ITS | Encounter Summary ---
Author Organization [facility] Address [address] [place] [address] Care Team Providers Care Direct Sales Representative Name Role Phone Unavailable Primary Care Provider Unavailabl e Reason for Visit * Reason Comments Medication Refill Encounter Details Date Type Department Care Team (Late st Contact Info) Description 04/14/2024 Refill [facility] [place] [address] [facility], [place], [place] [id number] Santi Mirza MD [address] [phone] Medication Refill Social History Tobacco Use Types [...] your living situation today? I have a [facility] place to live 02/20/2023 Interpersonal [...]
--- OUTSIDE RECORDS SUMMARY | 2024-10-01 12:51 | XMS_ITS | Encounter Summary ---
Author Organization [facility] Address [address] [place] [address] Care Team Providers Care Merchandise Support Associate Name Role Phone Unavailable Primary Care Provider Unavailabl e Reason for Visit * Reason Comments Med Change Request Encounter Details Date Type Department Care Team (Late st Contact Info) Description 03/23/2023 Refill [facility] [place] 194 [facility], [place], [place] [phone] Santi Mirza MD [address] [phone] Med Change Request Social History [...] your living situation today? I have a [facility] place to live 02/20/2023 Interpersonal Safety [...]
--- OUTSIDE RECORDS SUMMARY | 2024-10-01 12:51 | XMS_ITS | Encounter Summary ---
Author Organization [facility] Address [address] [place] [address] Care Team Providers Care Sheep Farm Manager Name Role Phone Cecy García MD Primary Care Provider Encounter Details Date Type Department Care Team Description 2019 Flattening Machine Operator Report Medical Records [address] [place] [address] Ovi Benz MD [address] [place] [id number] Social History Tobacco Use Types Packs/Day Years Used Date Smoking Tobacco: Never Smokeless Tobacco: Never Alcohol Use Standard Drinks/Week Comments Yes 0 (1 standard drink = 0.6 oz pur e alcohol) 24 beers a wk Sex Assigned at Date Recorded Not on file documented as of this encounter Plan of Treatment Not on file documented as of this encounter Visit Diagnoses Not on filedocumented in this encounter Care Teams Sheep Farm Manager Relationship Specialty Start Date End Date Cecy García MD [address] [place], [place] [phone] PCP - General Internal Medicine 10/30/17 documented as of this encounter
--- OUTSIDE RECORDS SUMMARY | 2024-10-01 12:51 | XMS_ITS | Clinical Summary ---
Author Organization [facility] [address] [facility] Address [address] [place] [address] Phone Care Team Providers Care Relay Operator Name Role Phone Unavailable Primary Care [...] your living situation today? I have a [facility] place to live 02/20/2023 Interpersonal Safety [...] Health Maintenance Due Date Last Done Comments Pneumococcal Vaccine (50+ years) (1 of 2 - PCV) 1973 HIV screening 1980 Hepatitis C screening 1985 Tetanus adult (Td q 10,TDAP once) 1987 Lipid disorder screening 2007 Colon cancer screening, Colonoscopy 2012 Shingles vaccine (Shingrix) (1 of 2 - Shingrix (RZV) 2 Dose Standard Series) 2017 Influenza vaccine 02/15/2024 Covid-19 vaccine series ( - 2023- season) 2024 Diabetes screening 02/21/2026 02/21/2023, 0 02/20/2023, 02/19/2023, Additional history exists RSV Discussion (1 - 1-dose 75+ series) 2042 Meningococcal Vaccine Aged Out No socorro mick eligible based on patient's age to complete this topic Pneumococcal Vaccine (2 - 49 years) Aged Out No longer eligible based on patient's age to complete this topic Medical Devices Implanted Type Area Surgical Processor Device Identifier Shelf Expiration Date Model / Serial / Lot Lead Sprint Quattro [id number] - [id number] Implanted:Qty: 1 on 02/21/2023 by Justus Beyer MD at [facility] [address] Implant Right: VENTRICLE [employer] 11/24/2024 [id number] / [id number] V / [id number] V Envelope Absorbable Antibacterial [id number] - [id number] Implanted:Qty: 1 on 02/21/2023 by Justus Beyer MD at [facility] [address] Implant Left: Chest Wall [employer] 11/26/2023 [id number] / / [id number] Icd [place] Mri Vr Single Df4 - [id number] Implanted:Qty: 1 on 02/21/2023 by Justus Beyer MD at [facility] [address] Implant Left: Chest [employer] 07/13/2024 [id number] / [id number] S / [id number] Procedures Procedure Name Priority Date/Time Associated Diagnosis Comments BASIC METABOLIC PANEL Routine 02/21/2023 6:10 AM EDT from Last 3 Months or Most Recently Relevant to Health Maintenance Results * Basic metabolic panel (02/21/2023 6:10 AM EDT) [facility] Glucose 79 65 - 110 mg/dL 02/21/2023 6:50 AM EDT [facility] Comment: Non-fasting: ??65-110 mg/dL Fasting (minimum 6 hrs): ??65-99 mg/dL BUN 10 7 - 18 mg/dL 02/21/2023 6:50 AM EDT + [facility] Creatinine 0.89 0.70 - 1.30 mg/dL 02/21/2023 6:50 AM EDT L + [facility] Sodium 138 136 - 145 mmol/L 02/21/2023 6:50 AM EDT + [facility] Potassium 4.2 3.5 - 5.1 mmol/L 02/21/2023 6:50 AM EDT [facility] Comment:Specimen slightly he molyzed. Chloride 104 98 - 107 mmol/L 02/21/2023 6:50 AM EDT + [facility] CO2 27 21 - 32 mmol/L 02/21/2023 6:50 AM EDT [facility] Anion Gap 7 5 - 15 mmol/L 02/21/2023 6:50 AM EDT [facility] Calcium 9.4 8.5 - 10.1 mg/dL 02/21/2023 6:50 AM EDT [facility] eGFR (Creatinine) >60 >=60 mL/min/1.7 3m2 02/21/2023 6:50 AM EDT [facility] Comment: Values < 60 mL/min/1.73 m2 may indicate CKD if present for more than three months AND creatinine is at steady state. The eGFR provides a rough estimate of kidney function. On 03/01/22 all [facility] Clinical Labs and Epic began using a [id number]-[id number] formula for estimating GFR called CKD-EPI Creatinine 2020. This equation reports eGFR based on creatinine, patient age, clinical sex, and is standardized to a body surface area of 1.73 m2. For the same creatinine, this new race-free eGFR will be lower than prior reported Black eGFR results and higher than prior Non-Black eGFR results. For further guidance, please refer to the CKD: Adult Lean Specialist Signature pathway. Blood Venipuncture / Unknown 02/21/2023 6:10 AM EDT 02/21/2023 6:22 AM EDT us Alessandro Og MD LAB BLOOD ORDERABLES Final Result L + M [facility] [address] [place] [address] from Last 3 Months or Most Recently Relevant to Health Maintenance Insurance [facility] Member Subscriber Plan / Payer (Ef fective 2022-Present) Name:Nitesh Osorio Relation to Subscriber:Self Name:Nitesh Osorio Payer ID:[id number] (NAIC) Group ID:Not on file Type:Not on file Address: [address] [id number] MEDICARE [facility] MEDICARE [facility] MEDICARE Advance Directives * Full Code (Latest Code Status on File) Date Activated Date Inactivated Comments 02/19/2023 1:39 AM 02/23/2023 7:02 PM
--- OUTSIDE RECORDS SUMMARY | 2024-10-01 12:51 | XMS_ITS | Clinical Summary ---
Author Organization [facility] Address [id number] [place] [phone] Care Team Providers Care Customer Support Representative Name Role Phone Cecy García MD Primary Care Provider [phone] Active Problems Problem Noted Date Diagnosed Date Hypertension 06/10/2019 Bilateral knee pain 01/18/2018 Surgical History Surgery Date Site/Laterality Comments ANKLE FRACTURE SURGERY PROCEDURE: [place] OPEN TREATMENT MEDIAL MALLEOLUS FRACTURE KNEE ARTHROSCOPY W/ MENISCAL REPAIR PROCEDURE: [place] ARTHROSCOPY KNEE W/MENISCUS RPR MEDIAL/LATERAL Family History [...] Result * Hepatitis C Screening (10/15/2023) Pathologist [facility] Hepatitis C Screening abstracted Historical Provider HEALTH MAINTENANCE Final Result * (ABNORMAL) Lipid panel (03/13/2019) [facility] LDL/HDL Ratio 3 0 - 4 Triglycerides 54 0 - 150 mg/dL Cholesterol 189 0 - 200 mg/dL HDL 57 >=40 mg/dL LDL Cholesterol 122(A) 0 - 100 mg/dL Blood Venous blood specimen / Unknown Historical Provider LAB BLOOD ORDERABLES Lore l Result * Colonoscopy (11/19/2018) Pathologist [facility] Colonoscopy normal, abstracted Anatomical Region Laterality Modality Other Historical Provider HEALTH MAINTENANCE Final Result from Last 3 Months or Most Recently Relevant to Health Maintenance Care Teams Customer Support Representative Relationship Specialty Start Date End Date Cecy García MD [address] [place] [id number] PCP - General Internal Medicine 10/30/17
--- OUTSIDE RECORDS SUMMARY | 2024-10-01 12:51 | XMS_ITS | Encounter Summary ---
Author Organization [facility] Address [address] [place] [address] Care Team Providers Care Handy Man Name Role Phone Unavailable Primary Care Provider Unavailabl e Reason for Visit * Reason Comments Medication Refill Encounter Details Date Type Department Care Team (Late st Contact Info) Description 04/14/2023 Refill [facility] [place] [address] [facility], [place], [place] [phone] Santi Mirza MD [address] [phone] Medication Refill Social History Tobacco [...] your living situation today? I have a [facility] place to live 02/20/2023 Interpersonal Safety Answer [...]
--- OUTSIDE RECORDS SUMMARY | 2024-10-01 12:51 | XMS_ITS | Encounter Summary ---
Author Organization [facility] Address [address] [place] [address] Care Team Providers Care Linesperson Name Role Phone Cecy García MD Primary Care Provider [phone] Encounter Details Date Type Department Care Team Description 06/29/2019 Orders Only Adult Medicine [facility] [address] [place] [phone] Cecy García MD [address] [place] [phone] Preoperative examination; Screening for deficiency anemia; group home current use of anticoagulant therapy Social History Tobacco Use Types Packs/Day Years Used Date Smoking Tobacco: Never Smokeless Tobacco: Never Alcohol Use Standard Drinks/Week Comments Yes 0 (1 standard drink = 0.6 oz pur e alcohol) 24 beers a wk Sex Assigned at Date Recorded Not on file documented as of this encounter Plan of Treatment Not on file documented as of this encounter Results * URINALYSIS, ROUTINE (07/24/2019 11:10 AM EST) GLUCOSE, URINE (UA) NEGATIVE NEGATIVE mg/dL 07/24/2019 3:29 PM EST [facility] BILIRUBIN URINE TNP NEGATIVE 07/24/2019 3:35 PM EST [facility] Comment:Unable to perform du e to specimen color interference. KETONE, URINE TNP NEGATIVE mg/dL 07/24/2019 3:35 PM EST [facility] Comment:Unable to perform du e to specimen color interference. SPECIFIC GRAVITY, URINE 1.025 1.003 - 1.030 07/24/2019 3:29 PM EST [facility] BLOOD, URINE NEGATIVE NEGATIVE 07/24/2019 3:29 PM EST [facility] PH, URINE 5.5 5.0 - 8.0 07/24/2019 3:29 PM EST [facility] PROTEIN, URINE TRACE <= TRACE mg/dl 07/24/2019 3:29 PM EST [facility] UROBILINOGEN, URINE 1.0 0.2 - 1.0 E.U./dL 07/24/2019 3:29 PM EST [facility] NITRITE,URINE NEGATIVE NEGATIVE 07/24/2019 3:35 PM EST [facility] LEUKOCYTE ESTERASE, URINE NEGATIVE NEGATIVE 07/24/2019 3:29 PM EST [facility] RBC-Urine 1 0 - 4 /HPF 07/24/2019 3:43 PM EST [facility] WBC-Urine 1 0 - 4 /HPF 07/24/2019 3:43 PM EST [facility] EPITH CELLS, URINE 10 0 - 60 /LPF 07/24/2019 3:43 PM EST [facility] BACTERIA, URINE NEGATIVE NEGATIVE 07/24/2019 3:43 PM EST [facility] MUCIN, URINE MODERATE 07/24/2019 3:43 PM EST [facility] 07/24/2019 11:1 0 AM EST 07/24/2019 11:10 AM EST Cecy García MD [facility] * HEMOGLOBIN A1C (07/24/2019 10:55 AM EST) GLYCATED HEMOGLOBIN A1C 4.9 <6.5 % 07/24/2019 4:06 PM EST [facility] ESTIMATED AVERAGE GLUCOSE 94 mg/dL 07/24/2019 4:06 PM EST [facility] 07/24/2019 10:5 5 AM EST 07/24/2019 10:56 AM EST Cecy García MD [facility] * PROTHROMBIN TIME (07/24/2019 10:55 AM EST) Prothrombin Time 12.8 10.6 - 13.9 SEC 07/24/2019 1:49 PM EST [facility] INR 1.08 07/24/2019 1:49 PM EST [facility] 07/24/2019 10:5 5 AM EST 07/24/2019 10:56 AM EST Cecy García MD [facility] * BASIC METABOLIC PANEL (07/24/2019 10:55 AM EST) GLUCOSE 93 70 - 100 mg/dL 07/24/2019 3:28 PM EST [facility] Comment:Reference range appl icable to fasting specimens only Blood Urea Nitrogen 10 5 - 25 mg/dL 07/24/2019 3:28 PM EST [facility] CREAT 0.91 0.7 - 1.3 mg/dL 07/24/2019 3:28 PM EST [facility] GLOMERULAR FILTRATION RATE > 60 07/24/2019 3:28 PM EST [facility] Comment: If patient is -Tunisian, multiply result by 1.21 Chronic Kidney Disease: < 60 ml/min/1.73 square meters Kidney Failure: < 15 ml/min/1.73 square meters NA 137 135 - 145 mEq/L 07/24/2019 3:28 PM EST [facility] K 4.1 3.5 - 5.5 mmol/L 07/24/2019 3:28 PM EST [facility] CL 102 96 - 110 mmol/L 07/24/2019 3:28 PM EST [facility] CARBON DIOXIDE (CO2) 27 21 - 32 mmol/L 07/24/2019 3:28 PM EST [facility] ANION GAP 8 3 - 11 07/24/2019 3:28 PM EST [facility] CALCIUM 10.1 8.5 - 10.5 mg/dL 07/24/2019 3:28 PM EST [facility] 07/24/2019 10:5 5 AM EST 07/24/2019 10:56 AM EST Cecy García MD [facility] * (ABNORMAL) CBC (AUTO DIFF PLATELET) (07/24/2019 10:55 AM EST) WHITE BLOOD COUNT 9.6 4.8 - 10.8 x10-3/uL 07/24/2019 3:25 PM EST [facility] RED BLOOD COUNT 4.8 4.5 - 5.5 x10-6/uL 07/24/2019 3:25 PM EST [facility] Hemoglobin 14.1 13.5 - 17.5 g/dL 07/24/2019 3:25 PM EST [facility] Hematocrit 44.7 42 - 54 % 07/24/2019 3:25 PM EST [facility] MEAN CORPUSCULAR VOLUME 92.7 79 - 98 fL 07/24/2019 3:25 PM EST [facility] MEAN CORPUSCULAR HEMOGLOBIN 29.3 27 - 32 pg 07/24/2019 3:25 PM EST [facility] MEAN CORPUSCULAR HGB CONC 31.5(L) 32 - 37 g/dL 07/24/2019 3:25 PM EST [facility] RED CELL DISTRIBUTION WIDTH 11.3 11 - 15 % 07/24/2019 3:25 PM EST [facility] PLT COUNT 268 130 - 400 x10-3/uL 07/24/2019 3:25 PM EST [facility] MEAN PLATELET VOLUME 11.7(H) 7 - 11 fL 07/24/2019 3:25 PM EST [facility] NRBC % AUTO 0.0 <1 % 07/24/2019 3:25 PM EST [facility] NEUTROPHILS % 60.1 % 07/24/2019 3:25 PM EST [facility] LYMPH % 27.9 % 07/24/2019 3:25 PM EST [facility] MONO % 10.5 % 07/24/2019 3:25 PM EST [facility] EOS % 0.7 % 07/24/2019 3:25 PM EST [facility] BASO % 0.5 % 07/24/2019 3:25 PM EST [facility] IMMATURE GRANULOCYTES % 0.3 % 07/24/2019 3:25 PM EST [facility] NRBC # AUTO 0.00 <0.1 x10-3/uL 07/24/2019 3:25 PM EST [facility] NEUT # 5.75 1.5 - 7.0 x10-3/uL 07/24/2019 3:25 PM EST [facility] LYMPH # 2.68 1 - 5.0 x10-3/uL 07/24/2019 3:25 PM EST [facility] MONO # 1.01(H) 0.2 - 1.0 x10-3/uL 07/24/2019 3:25 PM EST [facility] EOS # 0.07 0 - 0.5 x10-3/uL 07/24/2019 3:25 PM EST [facility] BASO # 0.05 0 - 0.2 x10-3/uL 07/24/2019 3:25 PM EST [facility] IMMATURE GRANULOCYTES # 0.03 0 - 0.03 x10-3/uL 07/24/2019 3:25 PM EST [facility] 07/24/2019 10:5 5 AM EST 07/24/2019 10:56 AM EST Cecy García MD LAB [facility] documented in this encounter Visit Diagnoses Diagnosis Preoperative examination Preoperative examination, unspecified Screening for deficiency anemia Screening for other and unspecified deficiency anemia terminal operations manager current use of anticoagulant therapy documented in this encounter Care Teams Linesperson Relationship Specialty Start Date End Date Cecy García MD [address] [place] [id number] PCP - General Internal Medicine 10/30/17 documented as of this encounter
--- OUTSIDE RECORDS SUMMARY | 2024-10-01 12:51 | XMS_ITS | Encounter Summary ---
Author Organization [facility] Address [address] [place] [address] Care Team Providers Care Digital Product Specialist Name Role Phone Unavailable Primary Care Provider Unavailabl e Encounter Details Date Type Department Care Team (Late st Contact Info) Description 03/22/2023 Scanned Document [facility] [place] [address] [facility], [place], [place] [address] Provider, Historical . Social History Tobacco Use [...] your living situation today? I have a [facility] place to live 02/20/2023 Interpersonal Safety [...]
--- OUTSIDE RECORDS SUMMARY | 2024-10-01 12:52 | XMS_ITS | Encounter Summary ---
Author Organization [facility] Address [address] [place] [address] Care Team Providers Care Shipping Receiving Manager Name Role Phone Cecy García MD Primary Care Provider [phone] Encounter Details Date Type Department Care Team Description 08/27/2019 Release of Information Medical Records [address] [place] [id number] Abstract, Provider Social History Tobacco Use Types Packs/Day Years [...] on filedocumented in this encounter Care Teams Shipping Receiving Manager Relationship Specialty Start Date End Date Cecy García MD [address] [place] [address] PCP - General Internal Medicine 10/30/17 documented as of this encounter
--- OUTSIDE RECORDS SUMMARY | 2024-10-01 12:52 | XMS_ITS | Encounter Summary ---
Author Organization [facility] Address [address] [place] [address] Care Team Providers Care Silk Folder Name Role Phone Cecy García MD Primary Care Provider [phone] Encounter Details Date Type Department Care Team Description 11/07/2017 Release of Information Medical Records [address] [place] [id number] Abstract, Provider Social History Tobacco Use Types Packs/Day Years Used Date Smoking Tobacco: Never Smokeless Tobacco: Never Sex Assigned at Date Recorded Not on file documented as of this encounter Plan of Treatment Not on file documented as of this encounter Visit Diagnoses Not on filedocumented in this encounter Care Teams Silk Folder Relationship Specialty Start Date End Date Cecy García MD [address] [place] [id number] PCP - General Internal Medicine 10/30/17 documented as of this encounter
--- OUTSIDE RECORDS SUMMARY | 2024-10-01 12:52 | XMS_ITS | Encounter Summary ---
Author Organization [facility] Address [address] [place] [address] Care Team Providers Care Microsoft Bi Consultant Name Role Phone Cecy García MD Primary Care Provider [phone] Encounter Details Date Type Department Care Team Description 05/14/2019 Tele Rn Report Medical Records [address] [place] [address] Ovi Benz MD [address] [place] [address] Social History Tobacco Use Types Packs/Day Years [...] on filedocumented in this encounter Care Teams Microsoft Bi Consultant Relationship Specialty Start Date End Date Cecy García MD [address] [place] [address] PCP - General Internal Medicine 10/30/17 documented as of this encounter
--- OUTSIDE RECORDS SUMMARY | 2024-10-01 12:52 | XMS_ITS | Encounter Summary ---
Author Organization [facility] Address [address] [place] [address] Care Team Providers Care Supervising Appraiser Name Role Phone Cecy García MD Primary Care Provider [phone] Encounter Details Date Type Department Care Team Description 10/05/2021 Computer Numeric Control Setter Report Medical Records [address] [place] [id number] Shira Kim MD Social History Tobacco Use Types Packs/Day Years Used Date Smoking Tobacco: Never Smokeless Tobacco: Never Alcohol Use Standard Drinks/Week Comments Yes 0 (1 standard drink = 0.6 oz pur e alcohol) 24 beers a wk; EtOH sz 01/03 Sex Assigned at Date Recorded Not on file documented as of this encounter Plan of Treatment Not on file documented as of this encounter Visit Diagnoses Not on filedocumented in this encounter Care Teams Supervising Appraiser Relationship Specialty Start Date End Date Cecy García MD [address] [place] [address] PCP - General Internal Medicine 10/30/17 documented as of this encounter
--- OUTSIDE RECORDS SUMMARY | 2024-10-01 12:52 | XMS_ITS | Referral Summary ---
Author Organization [facility] Address [address] [place] [address] Care Team Providers Care Retail Salesman Name Role Phone Cecy García Primary Care Provider [phone] Allergies No known active allergies Medications amiodarone [...] to have alisha-duodenal hematoma so transferred to [facility]. With hypotension and lactic acidosis initially improved after 2 units of PRBCs. CTA at [facility] showed large hematoma involving the [...] to have alisha-duodenal hematoma so transferred to [facility]. With hypotension [...] PM EDT): Patient had prior admission to [place] in February of last year where he [...] During his admission in February 2023 at [place] he had alcohol withdrawal through day 5 [...] PM EDT): Status post 2 cardioversions at [place]. Continue with Eliquis. Continue with amiodarone for [...] elevation and prior normal colonoscopy reported at [facility] 8 years ago warranting return for [...] in place. Patient had prior admission to [facility] in February of last year where he [...] Rectal polyp Medical Devices Implanted Type Area Wind Turbine Engineer Device Identifier Shelf Expiration Date Model / Serial / Lot Soft 4x30 Embold - [id number] Implanted:Qty: 1 on 10/15/2023 at [facility] Implant [employer] [id number] 05/23/2026 [id number] / / [id number] Soft 4x30 Embold - [id number] Implanted:Qty: 1 on 10/15/2023 by Jeffrey Srivastava MD at [facility] Implant [employer] [id number] 03/08/2024 [id number] / / [id number] Soft 5x30 Embold - [id number] Implanted:Qty: 1 on 10/15/2023 by Jeffrey Srivastava MD at [facility] Implant [facility] [id number] / / Coil Embolization Fibered Detachable Us 5x15 Embold - [id number] Implanted:Qty: 1 on 10/15/2023 by Jeffrey Srivastava MD at [facility] Implant [facility] [id number] / / Device Closure Vascular Plug 6fr Angio-Seal Vip - [id number] Implanted:Qty: 1 on 10/15/2023 by Jeffrey Srivastava MD at [facility] Implant Right: Groin [employer] [id number] 06/18/2024 [id number] / / [id number] Procedures * Due to [place] Ex[employer] law, this organization might not be sharing negative HIV tests. Procedure Name Priority Date/Time Associated Diagnosis Comments COMPREHENSIVE METABOLIC PANEL Routine 01/10/2024 5:49 AM EDT COLONOSCOPY 01/09/2024 from Last 3 Months or Most Recently Relevant to Health Maintenance Results * Due to [place] [employer] law, this organization might not be sharing negative HIV tests. * (ABNORMAL) Comprehensive metabolic panel (01/10/2024 5:49 AM EDT) NA 139 135 - 145 mmol/L 01/10/2024 8:46 AM EDT [facility] K 3.4(L) 3.5 - 5.3 mmol/L 01/10/2024 8:46 AM EDT [facility] Cl 103 98 - 107 mmol/L 01/10/2024 8:46 AM EDT [facility] CO2 26 24 - 32 mmol/L 01/10/2024 8:46 AM EDT [facility] Anion Gap 10 5 - 15 01/10/2024 8:46 AM EDT [facility] Glucose 89 65 - 99 mg/dL 01/10/2024 8:46 AM EDT [facility] Creatinine 0.86 0.60 - 1.30 mg/dL 01/10/2024 8:46 AM EDT [facility] Calcium 8.5(L) 8.6 - 10.5 mg/dL 01/10/2024 8:46 AM EDT [facility] Total Protein 5.8(L) 6.0 - 8.0 g/dL 01/10/2024 8:46 AM EDT [facility] Albumin 3.4(L) 3.5 - 5.2 g/dL 01/10/2024 8:46 AM EDT [facility] Bilirubin, Total 0.4 0.2 - 1.2 mg/dL 01/10/2024 8:46 AM EDT [facility] Alkaline Phosphatase 65 35 - 129 U/L 01/10/2024 8:46 AM EDT [facility] AST 14 10 - 40 U/L 01/10/2024 8:46 AM EDT [facility] ALT 13 10 - 40 U/L 01/10/2024 8:46 AM EDT [facility] BUN 7 7 - 23 mg/dL 01/10/2024 8:46 AM EDT [facility] eGFR >90 >=60 mL/min/1. 73m2 01/10/2024 8:46 AM EDT [facility] Comment:The estimated glomer ular [...] - 4.2 g/dL 01/10/2024 8:46 AM EDT [facility] A/G Ratio 1.4(L) 1.5 - 3.0 01/10/2024 8:46 AM EDT [facility] Blood Structure of peripheral vein / Unknown Venipuncture / Unknown 01/10/2024 5:49 AM EDT 01/10/2024 7:58 AM EDT us Arturo Perez MD LAB BLOOD ORDERABLES Final Result [facility] [address] [place] [address], [place] * COLONOSCOPY (01/09/2024) Narrative Procedure Note Leah Correa MD - 01/09/2024 10:13 AM EDT [facility] Patient Name: Nitesh Osorio Procedure Date: 01/09/2024 10:13 AM Date of : 1965 Admit Type: Inpatient Age: 58 Room: [facility] OR Gender: Male Note Status: Finalized Attending [...] Most Recently Relevant to Health Maintenance Insurance [facility] [place] [id number] Advance Directives Documents on File Type Date Recorded 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
--- OUTSIDE RECORDS SUMMARY | 2024-10-01 12:52 | XMS_ITS | Encounter Summary ---
Author Organization [facility] Address [address] [place] [address] Care Team Providers Care Director Of Compensation Name Role Phone Cecy García MD Primary Care Provider [phone] Encounter Details Date Type Department Care Team Description 01/09/2024 [facility] Medical Records [address] [place] [address] [facility] Social History Tobacco Use Types Packs/Day Years [...] on filedocumented in this encounter Care Teams Director Of Compensation Relationship Specialty Start Date End Date Cecy García MD [address] [place] [address] PCP - General Internal Medicine 10/30/17 documented as of this encounter
--- OUTSIDE RECORDS SUMMARY | 2024-10-01 12:52 | XMS_ITS | Clinical Summary ---
Author Organization [facility] Address [address] [place] [address] Care Team Providers Care Slot Host Name Role Phone Cecy García Primary Care Provider [phone] Allergies No known active allergies Medications amiodarone [...] to have alisha-duodenal hematoma so transferred to [facility]. With hypotension and lactic acidosis initially improved after 2 units of PRBCs. CTA at [facility] showed large hematoma involving [...] to have alisha-duodenal hematoma so transferred to [facility]. With hypotension and lactic acidosis initially [...] PM EDT): Patient had prior admission to [place] [facility] in February of last year where he [...] During his admission in February 2023 at [place] he had alcohol withdrawal through day 5 [...] PM EDT): Status post 2 cardioversions at [place]. Continue with Eliquis. Continue with amiodarone for [...] elevation and prior normal colonoscopy reported at [facility] 8 years [...] in place. Patient had prior admission to [place] [facility] in February of last year where he [...] 2017 Zoster Vaccines (1 of 2) 2017 COVID-19 Vaccine ( - 2023-2 5 season) 2024 Influenza Vaccine (#1) 2024 04/14/2020, 2019 Alcohol/Substance Use Screening 07/17/2024 Depression Screening and Follow-Up 07/17/2024 Social Drivers of Health Justina ual Screening 07/17/2024 Basic Metabolic Panel 01/09/2025 01/10/2024 , 01/09/2024, 01/08/2024, Additional history exists DTaP,Tdap,and Td Vaccines (3 - Tdap) 01/08/2026 01/09/2016, 01/31/2007 Colon Cancer Screening 01/08/2034 Colonoscopy 01/08/2034 01/09/2024, 12/16, 01/09/2024 RSV Vaccine (60+ years old a nd patients) (1 - 1-dose 75+ series) 2042 Medical Devices Implanted Type Area Teacher Device Identifier Shelf Expiration Date Model / Serial / Lot Soft 4x30 Embold - [id number] Implanted:Qty: 1 on 10/15/2023 at [facility] Implant [employer] [id number] 05/23/2026 [id number] / / [id number] Soft 4x30 Embold - [id number] Implanted:Qty: 1 on 10/15/2023 by Jeffrey Srivastava MD at [facility] Implant [employer] [id number] 03/08/2024 [id number] / / [id number] Soft 5x30 Embold - [id number] Implanted:Qty: 1 on 10/15/2023 by Jeffrey Srivastava MD at [facility] Implant [employer] [id number] / / Coil Embolization Fibered Detachable Us 5x15 Embold - [id number] Implanted:Qty: 1 on 10/15/2023 by Jeffrey Srivastava MD at [facility] Implant [employer] [id number] / / Device Closure Vascular Plug 6fr Angio-Seal Vip - [id number] Implanted:Qty: 1 on 10/15/2023 by Jeffrey Srivastava MD at [facility] Implant Right: Groin [employer] [id number] 06/18/2024 [id number] / / [id number] Procedures * Due to [place] state law, this organization might not be sharing negative HIV tests. Procedure Name Priority Date/Time Associated Diagnosis Comments COMPREHENSIVE METABOLIC PANEL Routine 01/10/2024 5:49 AM EDT COLONOSCOPY 01/09/2024 from Last 3 Months or Most Recently Relevant to Health Maintenance Results * Due to [place] state law, this organization might not be sharing negative HIV tests. * (ABNORMAL) Comprehensive metabolic panel (01/10/2024 5:49 AM EDT) NA 139 135 - 145 mmol/L 01/10/2024 8:46 AM EDT [facility] K 3.4(L) 3.5 - 5.3 mmol/L 01/10/2024 8:46 AM EDT [facility] Cl 103 98 - 107 mmol/L 01/10/2024 8:46 AM EDT [facility] CO2 26 24 - 32 mmol/L 01/10/2024 8:46 AM EDT [facility] Anion Gap 10 5 - 15 01/10/2024 8:46 AM EDT [facility] Glucose 89 65 - 99 mg/dL 01/10/2024 8:46 AM EDT [facility] Creatinine 0.86 0.60 - 1.30 mg/dL 01/10/2024 8:46 AM EDT [facility] Calcium 8.5(L) 8.6 - 10.5 mg/dL 01/10/2024 8:46 AM EDT [facility] Total Protein 5.8(L) 6.0 - 8.0 g/dL 01/10/2024 8:46 AM EDT [facility] Albumin 3.4(L) 3.5 - 5.2 g/dL 01/10/2024 8:46 AM EDT [facility] Bilirubin, Total 0.4 0.2 - 1.2 mg/dL 01/10/2024 8:46 AM EDT [facility] Alkaline Phosphatase 65 35 - 129 U/L 01/10/2024 8:46 AM EDT [facility] AST 14 10 - 40 U/L 01/10/2024 8:46 AM EDT [facility] ALT 13 10 - 40 U/L 01/10/2024 8:46 AM EDT [facility] BUN 7 7 - 23 mg/dL 01/10/2024 8:46 AM EDT [facility] eGFR >90 >=60 mL/min/1. 73m2 01/10/2024 8:46 AM EDT [facility] Comment:The estimated glomer ular filtration rate (eGFR) is calculated using a new formula developed by the NKF-ASN task force to eliminate race-based correction factors. The new formula uses serum/plasma creatinine, age, and gender to determine eGFR. A value below 60mls/min might indicate kidney disease and will be flagged. For additional information, see Kerr et al, Am J Kidney Dis. 2021;79(2):268- 288, A Unifying Approach for GFR estimation: Recommendations of the NKF-ASN Task Force on Reassessing the Inclusion of Race in Diagnosing Kidney Disease . Globulin, Total 2.4 2.1 - 4.2 g/dL 01/10/2024 8:46 AM EDT [facility] A/G Ratio 1.4(L) 1.5 - 3.0 01/10/2024 8:46 AM EDT [facility] Blood Structure of peripheral vein / Unknown Venipuncture / Unknown 01/10/2024 5:49 AM EDT 01/10/2024 7:58 AM EDT us Arturo Perez MD LAB BLOOD ORDERABLES Final Result [facility] [address] [place] [address], [place] * COLONOSCOPY (01/09/2024) Narrative Procedure Note Leah Correa MD - 01/09/2024 10:13 AM EDT [facility] Patient Name: Nitesh Osorio Procedure Date: 01/09/2024 10:13 AM Date of : 1965 Admit Type: Inpatient Age: 58 Room: [place] [address] Gender: Male Note Status: Finalized Attending MD: [...] Most Recently Relevant to Health Maintenance Insurance [facility] Advance Directives Documents on File Type Date Recorded Patient Pbx Manager Expl anation Health Care Proxy 10/17/2023 9:51 [...] ( Lue ) Devon Sister Alternate H [facility] Care Agent Care Teams Slot Host Relationship Specialty Start Date End Date GarcíaCecy PCP - General Internal Medicine 10/27/23
== END 2024-10-01 11:49 | disposition home or self-care (01) ==
LOC: HO.HMCH 10:49
PROVIDERS: PCP Nurse Practitioner Family
DX: M16.11 Unilateral primary osteoarthritis, right hip (principal); I48.0 Paroxysmal atrial fibrillation; G47.33 Obstructive sleep apnea (adult) (pediatric); Z99.89 Dependence on other enabling machines and devices; I10 Essential (primary) hypertension; M70.22 Olecranon bursitis, left elbow

== ENCOUNTER → 2024-10-01 10:49 | Outpatient (BNVA) | payer MEDICARE, MEDICAID, SELFPAY | PROVIDERS: PCP Nurse Practitioner Family | DX: M16.11 Unilateral primary osteoarthritis, right hip (principal); I48.0 Paroxysmal atrial fibrillation; G47.33 Obstructive sleep apnea (adult) (pediatric); Z99.89 Dependence on other enabling machines and devices; I10 Essential (primary) hypertension; M70.22 Olecranon bursitis, left elbow | CPT/HCPCS: 99212 ==

== ENCOUNTER → 2024-10-13 23:59 | Outpatient (BNV) | payer MEDICARE, MEDICAID, SELFPAY ==
--- NOTE | 2024-10-20 13:23 | A.OFFVIS_ITS ---
Intake Visit Reasons: Remote HF monitoring- Medtronic Allergies No Known Allergies Allergy (Verified 10/17/24 10:48) [facility] Medical History (Updated 10/01/24 @ 12:37 by Liliane Mata PA-C) Acute pancreatitis Pancreatic pseudocyst Acute heart failure with preserved ejection fraction (HFpEF) Anemia Acute exacerbation of CHF (congestive heart failure) Morbid obesity Gastrointestinal bleeding History of cardioversion FARHEEN on CPAP Alcohol abuse HTN (hypertension) (HFpEF) heart failure with preserved ejection fraction Surgical History (Updated 10/17/24 @ 10:49 by Myrna Sears [facility]) History of left hip replacement History of cardiac radiofrequency ablation History of esophagogastroduodenoscopy (EGD) Hx of colonoscopy Status post ORIF of fracture of ankle Family History Mother HTN (hypertension) Diabetes mellitus Father Diabetes mellitus HTN (hypertension) Maternal Uncle Colon cancer Social History Household Members: Significant Other Household Members Other:: GF, daughter Housing: Apartment Are you a primary career coordinator to a significant other at home: No Do you presently have visiting nurse or other home services: No Alcohol intake: former Comment: pt refusing high falls measures exc socks Patient Tobacco Use Status: Never used Tobacco e-Cigarette/Vaping Use: Never Used Second Hand Smoke Exposure: No Substance Use Type: Marijuana Advance Directives Date on File: 01/25/21 service: No Current occupational status: retired Current occupation: rt handed Cognitive needs: No Hearing needs: No Vision needs: No Office Procedures Cardiac Device Check Cardiac Device Check Details: Date of service- 10/13/2024; based on impedance data and physiological variables, there is no evidence of worsening congestive heart failure. [id number] Cardiac Device Interrogation, cardio physiologic monitor Procedure code (CPT) selection complete Assessment & Plan Assessment & Plan (1) ICD (implantable cardioverter-defibrillator) in place: Code(s): Z95.810 - Presence of automatic (implantable) cardiac defibrillator Category: Medical (2) NICM (nonischemic cardiomyopathy): Code(s): I42.8 - Other cardiomyopathies Category: Medical Plan X Coding Level of Care Code Procedure Only Diagnoses ICD (implantable cardioverter-defibrillator) in place Z95.810 NICM (nonischemic cardiomyopathy) I42.8 CPT Codes Cardiac Device Check - Cardiac Device 15: [id number] Cardiac Device Interrogation, cardio physiologic monitor ([id number])
== END ==
PROVIDERS: Visit Provider Internal Medicine
DX: I42.8 Other cardiomyopathies (principal); Z95.810 Presence of automatic (implantable) cardiac defibrillator
CPT/HCPCS: 93297

== ENCOUNTER 2024-10-17 08:23 | Outpatient (REF) | payer MEDICARE, MEDICAID, SELFPAY ==
--- NOTE | ~2024-10-17 | XR_ITS ---
EXAMINATION: XR PELVIS CLINICAL INFORMATION: M25.559 - Pain in unspecified hip COMPARISON: Right hip x-ray dated August 29, 2024. TECHNIQUE: AP view of the pelvis. FINDINGS: Excluded iliac crests from the cwllv-hu-jqzq. Subchondral cyst formation asymmetric joint space narrowing and marginal osteophyte formation with sclerosis of the articular surface centered in the right coxofemoral joint. No acute cortical disruption or malalignment right hip. Total metallic prosthesis with an acetabular and femoral component in the left hip. XR/XR pelvis 1-2V IMPRESSION: Moderate to severe osteoarthrosis, right hip. Status post total left hip arthroplasty prosthesis, left hip. Electronically signed by: Javid Benz MD 10/18/2024 08:14 AM EDT
--- OUTSIDE RECORDS SUMMARY | 2024-10-17 08:28 | XMS_ITS | Referral Summary ---
Author Organization [facility] Address [address] [place] [address] Care Team Providers Care Supervisor Grain And Yeast Plants Name Role Phone Cecy García Primary Care Provider [phone] Allergies No known active allergies Medications amiodarone [...] to have alisha-duodenal hematoma so transferred to [facility]. With hypotension and lactic acidosis [...] to have alisha-duodenal hematoma so transferred to [facility]. With hypotension and lactic acidosis [...] PM EDT): Patient had prior admission to [place] in February of last year where he [...] During his admission in February 2023 at [place] he had alcohol withdrawal through day 5 [...] PM EDT): Status post 2 cardioversions at [place]. Continue with Eliquis. Continue with amiodarone for [...] elevation and prior normal colonoscopy reported at [facility] 8 years ago warranting return [...] in place. Patient had prior admission to [place] in February of last year where he [...] Rectal polyp Medical Devices Implanted Type Area Core Measures Abstractor Device Identifier Shelf Expiration Date Model / Serial / Lot Soft 4x30 Embold - [id number] Implanted:Qty: 1 on 10/15/2023 at [facility] Implant [employer] [id number] 05/23/2026 [id number] / / [id number] Soft 4x30 Embold - [id number] Implanted:Qty: 1 on 10/15/2023 by Jeffrey Srivastava MD at [facility] Implant [employer] [id number] 03/08/2024 [id number] / / [id number] Soft 5x30 Embold - [id number] Implanted:Qty: 1 on 10/15/2023 by Jeffrey Srivastava MD at [facility] Implant [facility] [id number] / / Coil Embolization Fibered Detachable Us 5x15 Embold - [id number] Implanted:Qty: 1 on 10/15/2023 by Jeffrey Srivastava MD at [facility] Implant [facility] [id number] / / Device Closure Vascular Plug 6fr Angio-Seal Vip - [id number] Implanted:Qty: 1 on 10/15/2023 by Jeffrey Srivastava MD at [facility] Implant Right: Groin [employer] [id number] 06/18/2024 [id number] / / [id number] Procedures * Due to [place] [employer] law, this organization might not be sharing negative HIV tests. Procedure Name Priority Date/Time Associated Diagnosis Comments COMPREHENSIVE METABOLIC PANEL Routine 01/10/2024 5:49 AM EDT COLONOSCOPY 01/09/2024 from Last 3 Months or Most Recently Relevant to Health Maintenance Results * Due to [place] law, this organization might not be sharing negative HIV tests. * (ABNORMAL) Comprehensive metabolic panel (01/10/2024 5:49 AM EDT) NA 139 135 - 145 mmol/L 01/10/2024 8:46 AM EDT [facility] K 3.4(L) 3.5 - 5.3 mmol/L 01/10/2024 8:46 AM EDT [facility] Cl 103 98 - 107 mmol/L 01/10/2024 8:46 AM EDT [facility] CO2 26 24 - 32 mmol/L 01/10/2024 8:46 AM EDT [facility] Anion Gap 10 5 - 15 01/10/2024 8:46 AM EDT [facility] Glucose 89 65 - 99 mg/dL 01/10/2024 8:46 AM EDT [facility] Creatinine 0.86 0.60 - 1.30 mg/dL 01/10/2024 8:46 AM EDT [facility] Calcium 8.5(L) 8.6 - 10.5 mg/dL 01/10/2024 8:46 AM EDT [facility] Total Protein 5.8(L) 6.0 - 8.0 g/dL 01/10/2024 8:46 AM EDT [facility] Albumin 3.4(L) 3.5 - 5.2 g/dL 01/10/2024 8:46 AM EDT [facility] Bilirubin, Total 0.4 0.2 - 1.2 mg/dL 01/10/2024 8:46 AM EDT [facility] Alkaline Phosphatase 65 35 - 129 U/L 01/10/2024 8:46 AM EDT [facility] AST 14 10 - 40 U/L 01/10/2024 8:46 AM EDT [facility] ALT 13 10 - 40 U/L 01/10/2024 8:46 AM EDT [facility] BUN 7 7 - 23 mg/dL 01/10/2024 8:46 AM EDT [facility] eGFR >90 >=60 mL/min/1. 73m2 01/10/2024 8:46 AM EDT [facility] Comment:The estimated glomer ular [...] - 4.2 g/dL 01/10/2024 8:46 AM EDT [facility] A/G Ratio 1.4(L) 1.5 - 3.0 01/10/2024 8:46 AM EDT [facility] Blood Structure of peripheral vein / Unknown Venipuncture / Unknown 01/10/2024 5:49 AM EDT 01/10/2024 7:58 AM EDT us Arturo Perez MD LAB BLOOD ORDERABLES Final Result [facility] [address] [place] [address], [place] * COLONOSCOPY (01/09/2024) Narrative Procedure Note Leah Correa MD - 01/09/2024 10:13 AM EDT [facility] Patient Name: Nitesh Osorio Procedure Date: 01/09/2024 10:13 AM Date of : 1965 Admit Type: Inpatient Age: 58 Room: [facility] OR Gender: Male Note Status: Finalized [...] Most Recently Relevant to Health Maintenance Insurance [facility] [place] [id number] Advance Directives Documents on File Type Date Recorded 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 Health Care Proxy 10/17/2023 9:51 AM [...] ( Fabian ) Devon Sister Alternate H [facility] Care Agent Care Teams Supervisor Grain And Yeast Plants Relationship Specialty Start Date End Date Cecy García PCP - General Internal Medicine 10/27/23
--- OUTSIDE RECORDS SUMMARY | 2024-10-17 08:28 | XMS_ITS | Encounter Summary ---
Author Organization [facility] Address [address] [place] [address] Care Team Providers Care Unit Leader Name Role Phone Unavailable Primary Care Provider Unavailabl e Encounter Details Date Type Department Care Team (Late st Contact Info) Description 03/22/2023 Scanned Document [facility] [place] [address] [facility], [address] [place] [id number] Provider, Historical . Social History Tobacco Use [...] your living situation today? I have a [facility] place to live 02/20/2023 Interpersonal Safety [...]
--- OUTSIDE RECORDS SUMMARY | 2024-10-17 08:28 | XMS_ITS | Clinical Summary ---
Author Organization [facility] Address [address] [place] [address] Care Team Providers Care Restaurant Associate Name Role Phone Cecy García Primary Care Provider [phone] Allergies No known active allergies Medications amiodarone [...] to have alisha-duodenal hematoma so transferred to [facility]. With hypotension and lactic acidosis initially improved after 2 units of PRBCs. CTA at [facility] showed large hematoma involving the second and [...] to have alisha-duodenal hematoma so transferred to [facility]. With hypotension and lactic acidosis initially [...] PM EDT): Patient had prior admission to [place] in February of last year where he [...] During his admission in February 2023 at [place] he had alcohol withdrawal through day 5 [...] PM EDT): Status post 2 cardioversions at [place]. Continue with Eliquis. Continue with amiodarone for [...] elevation and prior normal colonoscopy reported at [facility] 8 years ago warranting return for [...] in place. Patient had prior admission to [place] in February of last year where he [...] Vaccine ( - 2023-2 5 season) 2024 Alcohol/Substance Use Screening 07/17/2024 Depression Screening and Follow-Up 07/17/2024 Social Drivers of Health Justina ual Screening 07/17/2024 Basic Metabolic Panel 01/09/2025 01/10/2024 , 01/09/2024, 01/08/2024, Additional history exists Influenza Vaccine (Season Ended) 2025 04/14/20, 08/14/2019 DTaP,Tdap,and Td Vaccines (3 - Tdap) 01/08/2026 01/09/2016, 01/31/2007 Colon Cancer Screening 01/08/2034 Colonoscopy 01/08/2034 01/09/2024, 12/16, 01/09/2024 RSV Vaccine (60+ years old a nd patients) (1 - 1-dose 75+ series) 2042 Medical Devices Implanted Type Area Office Correspondent Device Identifier Shelf Expiration Date Model / Serial / Lot Soft 4x30 Embold - [id number] Implanted:Qty: 1 on 10/15/2023 at [facility] Implant [employer] [id number] 05/23/2026 [id number] / / [id number] Soft 4x30 Embold - [id number] Implanted:Qty: 1 on 10/15/2023 by Jeffrey Srivastava MD at [facility] Implant [employer] [id number] 03/08/2024 [id number] / / [id number] Soft 5x30 Embold - [id number] Implanted:Qty: 1 on 10/15/2023 by Jeffrey Srivastava MD at [facility] Implant [place] Yadio [id number] / / Coil Embolization Fibered Detachable Us 5x15 Embold - [id number] Implanted:Qty: 1 on 10/15/2023 by Jeffrey Srivastava MD at [facility] Implant [place] Yadio [id number] / / Device Closure Vascular Plug 6fr Angio-Seal Vip - [id number] Implanted:Qty: 1 on 10/15/2023 by Jeffrey Srivastava MD at [facility] Implant Right: Groin [employer] [id number] 06/18/2024 [id number] / / [id number] Procedures * Due to [place] state [...] - 145 mmol/L 01/10/2024 8:46 AM EDT [facility] K 3.4(L) 3.5 - 5.3 mmol/L 01/10/2024 8:46 AM EDT [facility] Cl 103 98 - 107 mmol/L 01/10/2024 8:46 AM EDT [facility] CO2 26 24 - 32 mmol/L 01/10/2024 8:46 AM EDT [facility] Anion Gap 10 5 - 15 01/10/2024 8:46 AM EDT [facility] Glucose 89 65 - 99 mg/dL 01/10/2024 8:46 AM EDT [facility] Creatinine 0.86 0.60 - 1.30 mg/dL 01/10/2024 8:46 AM EDT [facility] Calcium 8.5(L) 8.6 - 10.5 mg/dL 01/10/2024 8:46 AM EDT [facility] Total Protein 5.8(L) 6.0 - 8.0 g/dL 01/10/2024 8:46 AM EDT [facility] Albumin 3.4(L) 3.5 - 5.2 g/dL 01/10/2024 8:46 AM EDT [facility] Bilirubin, Total 0.4 0.2 - 1.2 mg/dL 01/10/2024 8:46 AM EDT [facility] Alkaline Phosphatase 65 35 - 129 U/L 01/10/2024 8:46 AM EDT [facility] AST 14 10 - 40 U/L 01/10/2024 8:46 AM EDT [facility] ALT 13 10 - 40 U/L 01/10/2024 8:46 AM EDT [facility] BUN 7 7 - 23 mg/dL 01/10/2024 8:46 AM EDT [facility] eGFR >90 >=60 mL/min/1. 73m2 01/10/2024 8:46 AM EDT [facility] Comment:The estimated glomer [...] - 4.2 g/dL 01/10/2024 8:46 AM EDT [facility] A/G Ratio 1.4(L) 1.5 - 3.0 01/10/2024 8:46 AM EDT [facility] Blood Structure of peripheral vein / Unknown Venipuncture / Unknown 01/10/2024 5:49 AM EDT 01/10/2024 7:58 AM EDT us Arturo Perez MD LAB BLOOD ORDERABLES Final Result [facility] [address] [place] [address], * COLONOSCOPY (01/09/2024) Narrative Procedure Note Leah Correa MD - 01/09/2024 10:13 AM EDT [facility] Gastroenterology Patient Name: Nitesh Osorio Procedure Date: 01/09/2024 10:13 AM Date of : 1965 Admit Type: Inpatient Age: 58 Room: [place] [address] Gender: Male Note Status: Finalized Attending MD: [...] Most Recently Relevant to Health Maintenance Insurance [facility] ATTN:[place] [address] [facility] Advance Directives Documents on File Type Date Recorded Patient Guest Relations Agent Expl anation Health Care Proxy 10/17/2023 9:51 [...] ( Lue ) Devon Sister Alternate [facility] Care Agent Care Teams Restaurant Associate Relationship Specialty Start Date End Date RaquelCecy PCP - General Internal Medicine 10/27/23
--- OUTSIDE RECORDS SUMMARY | 2024-10-17 08:28 | XMS_ITS | Encounter Summary ---
Author Organization [facility] Address [address] [place] [address] Care Team Providers Care Healthcare Architect Name Role Phone Cecy García MD Primary Care Provider [phone] Encounter Details Date Type Department Care Team Description 11/13/2017 Transfer Records Medical Records [address] [place] [id number] Abstract, Provider Social History Tobacco Use Types Packs/Day Years Used Date Smoking Tobacco: Never Smokeless Tobacco: Never Sex Assigned at Date Recorded Not on file documented as of this encounter Plan of Treatment Not on file documented as of this encounter Visit Diagnoses Not on filedocumented in this encounter Care Teams Healthcare Architect Relationship Specialty Start Date End Date Cecy García MD [address] [place] [address] [id number] PCP - General Internal Medicine 10/30/17 documented as of this encounter
--- OUTSIDE RECORDS SUMMARY | 2024-10-17 08:28 | XMS_ITS | Encounter Summary ---
Author Organization [facility] Address [address] [place] [address] Care Team Providers Care Obstetrics Gynecology Physician Name Role Phone Cecy García MD Primary Care Provider [phone] Reason for Referral * Non KLAUDIA (Routine) - Closed Specialty Diagnoses / Procedures Referred By Jony arshad Referred To Contact Gastroenterology Procedures REFERRAL TO GASTROENTEROLOGY Kvng Cummings NP [address] [place] [address] Gastro Spf[facility]/175 [address] [facility] [address] [place] [phone] Referral ID Status Reason Start Date Expiration Date Visits Re quested Visits Authorized [id number] Closed 10/01/2018 10/01/2019 1 1 Encounter Details Date Type Department Care Team Description 10/01/2018 Orders Only Adult Medicine [address] [address] Kvng Cummings NP Social History Tobacco Use Types Packs/Day Years Used Date Smoking Tobacco: Never Smokeless Tobacco: Never Sex Assigned at Date Recorded Not on file documented as of this encounter Plan of Treatment Not on file documented as of this encounter Visit Diagnoses Not on filedocumented in this encounter Care Teams Obstetrics Gynecology Physician Relationship Specialty Start Date End Date Cecy García MD [address] [place] [address] [phone] PCP - General Internal Medicine 10/30/17 documented as of this encounter
--- OUTSIDE RECORDS SUMMARY | 2024-10-17 08:28 | XMS_ITS | Encounter Summary ---
Author Organization [facility] Address [address] [place] [address] Care Team Providers Care Peanut Farmer Name Role Phone Cecy García MD Primary Care Provider [phone] Reason for Visit * Reason Onset Date Comments Medication 03/08/2023 Encounter Details Date Type Department Care Team Description 03/08/2023 Telephone Adult [address] [phone] Cecy García MD [address] [place] [address] [phone] Medication Social History Tobacco Use Types Packs/Day Years [...] on filedocumented in this encounter Care Teams Peanut Farmer Relationship Specialty Start Date End Date Cecy García MD [address] [place] [address] [id number] PCP - General Internal Medicine 10/30/17 documented as of this encounter
--- OUTSIDE RECORDS SUMMARY | 2024-10-17 08:28 | XMS_ITS | Encounter Summary ---
Author Organization [facility] Address [address] [place] [address] Care Team Providers Care Scientific Illustrator Name Role Phone Cecy García MD Primary Care Provider [phone] Encounter Details Date Type Department Care Team Description 01/09/2024 [facility] Medical Records [address] [place] [address] [facility] Social History Tobacco Use Types Packs/Day [...] on filedocumented in this encounter Care Teams Scientific Illustrator Relationship Specialty Start Date End Date Cecy García MD [address] [place] [address] PCP - General Internal Medicine 10/30/17 documented as of this encounter
--- OUTSIDE RECORDS SUMMARY | 2024-10-17 08:28 | XMS_ITS | Encounter Summary ---
Author Organization [facility] Address [address] [place] [address] Care Team Providers Care Test Analyst Name Role Phone Unavailable Primary Care Provider Unavailabl e Reason for Visit * Reason Comments Medication Refill Encounter Details Date Type Department Care Team (Late st Contact Info) Description 04/14/2023 Refill [facility] [place] [address] [facility], [address], [place] [phone] Santi Mirza MD [address] [address] Medication Refill Social History Tobacco [...] your living situation today? I have a [facility] place to live 02/20/2023 Interpersonal Safety [...]
--- OUTSIDE RECORDS SUMMARY | 2024-10-17 08:28 | XMS_ITS | Encounter Summary ---
Author Organization [facility] Address [address] [place] [address] Care Team Providers Care Acid Painter Name Role Phone Cecy García MD Primary Care Provider [phone] Encounter Details Date Type Department Care Team Description 08/14/2019 [facility] Medical Records [address] [place] [address] Nathan Adair MD Social History Tobacco Use Types Packs/Day [...] on filedocumented in this encounter Care Teams Acid Painter Relationship Specialty Start Date End Date Cecy García MD [address] [place] [address] PCP - General Internal Medicine 10/30/17 documented as of this encounter
--- OUTSIDE RECORDS SUMMARY | 2024-10-17 08:28 | XMS_ITS | Clinical Summary ---
Author Organization [facility] Address [id number] [place] [phone] Care Team Providers Care Vending Machine Filler Name Role Phone Cecy García MD Primary Care Provider [phone] Active Problems Problem Noted Date Diagnosed Date Hypertension 06/10/2019 Bilateral knee pain 01/18/2018 Surgical History Surgery Date Site/Laterality Comments ANKLE FRACTURE SURGERY PROCEDURE: CT OPEN TREATMENT MEDIAL MALLEOLUS FRACTURE KNEE ARTHROSCOPY W/ MENISCAL REPAIR PROCEDURE: CT ARTHROSCOPY KNEE W/MENISCUS RPR MEDIAL/LATERAL Family History [...] Result * Hepatitis C Screening (10/15/2023) Pathologist [facility] Hepatitis C Screening abstracted Historical Provider HEALTH MAINTENANCE Final Result * (ABNORMAL) Lipid panel (03/13/2019) [facility] LDL/HDL Ratio 3 0 - 4 Triglycerides 54 0 - 150 mg/dL Cholesterol 189 0 - 200 mg/dL HDL 57 >=40 mg/dL LDL Cholesterol 122(A) 0 - 100 mg/dL Blood Venous blood specimen / Unknown Historical Provider LAB BLOOD ORDERABLES Lore l Result * Colonoscopy (11/19/2018) Pathologist [facility] Colonoscopy normal, abstracted Anatomical Region Laterality Modality Other Historical Provider HEALTH MAINTENANCE Final Result from Last 3 Months or Most Recently Relevant to Health Maintenance Care Teams Vending Machine Filler Relationship Specialty Start Date End Date Cecy García MD [address] [place] [id number] PCP - General Internal Medicine 10/30/17
--- OUTSIDE RECORDS SUMMARY | 2024-10-17 08:28 | XMS_ITS | Encounter Summary ---
Author Organization [facility] Address [address] [place] [address] Care Team Providers Care Medical Billing Manager Name Role Phone Unavailable Primary Care Provider Unavailabl e Reason for Visit * Reason Comments Medication Refill Encounter Details Date Type Department Care Team (Late st Contact Info) Description 04/14/2024 Refill [facility] [place] 194 [facility] [place], [place] [phone] Santi Mirza MD [address] [phone] Medication Refill Social History Tobacco [...] your living situation today? I have a [facility] place to live 02/20/2023 Interpersonal Safety [...]
--- OUTSIDE RECORDS SUMMARY | 2024-10-17 08:28 | XMS_ITS | Encounter Summary ---
Author Organization [facility] Address [address] [place] [address] Care Team Providers Care Warp Changer Name Role Phone Cecy García MD Primary Care Provider [phone] Encounter Details Date Type Department Care Team Description 08/15/2019 [facility] Medical Records [address] [place] [address] Beba Castano MD Social History Tobacco Use Types Packs/Day [...] on filedocumented in this encounter Care Teams Warp Changer Relationship Specialty Start Date End Date Cecy García MD [address] [place] [address] PCP - General Internal Medicine 10/30/17 documented as of this encounter
--- OUTSIDE RECORDS SUMMARY | 2024-10-17 08:28 | XMS_ITS | Encounter Summary ---
Author Organization [facility] Address [address] [place] [address] Care Team Providers Care Despatching And Receiving Clerk Name Role Phone Cecy García MD Primary Care Provider Encounter Details Date Type Department Care Team Description 05/14/2019 Ski Guide Report Medical Records [address] [place] [address] Ovi Benz MD [address] [place] [address] Social History Tobacco Use Types Packs/Day Years [...] on filedocumented in this encounter Care Teams Despatching And Receiving Clerk Relationship Specialty Start Date End Date Cecy García MD [address] [place] [address] PCP - General Internal Medicine 10/30/17 documented as of this encounter
--- OUTSIDE RECORDS SUMMARY | 2024-10-17 08:28 | XMS_ITS | Encounter Summary ---
Author Organization [facility] [place] [facility] Address [address] [place] [address] Care Team Providers Care Embossing Calender Operator Name Role Phone Cecy García MD Primary Care Provider [phone] Encounter Details Date Type Department Care Team Description 11/07/2017 Release of Information Medical Records [address] [place] [id number] Abstract, Provider Social History Tobacco Use Types Packs/Day Years Used Date Smoking Tobacco: Never Smokeless Tobacco: Never Sex Assigned at Date Recorded Not on file documented as of this encounter Plan of Treatment Not on file documented as of this encounter Visit Diagnoses Not on filedocumented in this encounter Care Teams Embossing Calender Operator Relationship Specialty Start Date End Date Cecy García MD [address] [place] [address] [phone] PCP - General Internal Medicine 10/30/17 documented as of this encounter
--- OUTSIDE RECORDS SUMMARY | 2024-10-17 08:28 | XMS_ITS | Encounter Summary ---
Author Organization [facility] Address [address] [place] [address] Care Team Providers Care Paper And Pulp Mill Operator Name Role Phone Unavailable Primary Care Provider Unavailabl e Reason for Visit * Reason Comments Med Change Request Encounter Details Date Type Department Care Team (Late st Contact Info) Description 03/23/2023 Refill [facility] [place] 194 [facility], [address], [place] [phone] Santi Mirza MD [address] [address] Med Change Request Social History [...] your living situation today? I have a [facility] place to live 02/20/2023 Interpersonal Safety [...]
--- OUTSIDE RECORDS SUMMARY | 2024-10-17 08:28 | XMS_ITS | Clinical Summary ---
Author Organization [facility] [address] [facility] Address [address] [place] [address] Phone Care Team Providers Care Surveillance Manager Name Role Phone Unavailable Primary Care [...] your living situation today? I have a [facility] place to live 02/20/2023 Interpersonal Safety [...] 2017 Influenza vaccine 02/15/2024 Covid-19 vaccine series (1 - 2023- season) 2024 Diabetes screening 02/21/2026 02/21/2023, 0 02/20/2023, 02/19/2023, Additional history exists RSV Immunization (1 - 1-dose 75+ series) 2042 Meningococcal Vaccine Aged Out No socorro mick eligible based on patient's age to complete this topic Pneumococcal Vaccine (2 - 49 years) Aged Out No longer eligible based on patient's age to complete this topic Medical Devices Implanted Type Area Lift Electrician Device Identifier Shelf Expiration Date Model / Serial / Lot Lead Sprint Quattro [id number] - [id number] Implanted:Qty: 1 on 02/21/2023 by Justus Beyer MD at [facility] [address] Implant Right: VENTRICLE [employer] 11/24/2024 [id number] / [id number] / [id number] Envelope Absorbable Antibacterial [id number] - [id number] Implanted:Qty: 1 on 02/21/2023 by Justus Beyer MD at [facility] [address] Implant Left: Chest Wall [employer] 11/26/2023 [id number] / / [id number] Icd Eola Mri Vr Single Df4 - [id number] Implanted:Qty: 1 on 02/21/2023 by Justus Beyer MD at [facility] [address] Implant Left: Chest [employer] 07/13/2024 [id number] / [id number] / [id number] Procedures Procedure Name Priority Date/Time Associated Diagnosis Comments BASIC METABOLIC PANEL Routine 02/21/2023 6:10 AM EDT from Last 3 Months or Most Recently Relevant to Health Maintenance Results * Basic metabolic panel (02/21/2023 6:10 AM EDT) [facility] Glucose 79 65 - 110 mg/dL 02/21/2023 6:50 AM EDT [facility] Comment: Non-fasting: ??65-110 mg/dL Fasting (minimum 6 hrs): ??65-99 mg/dL BUN 10 7 - 18 mg/dL 02/21/2023 6:50 AM EDT + [facility] Creatinine 0.89 0.70 - 1.30 mg/dL 02/21/2023 6:50 AM EDT L + [facility] Sodium 138 136 - 145 mmol/L 02/21/2023 6:50 AM EDT + [facility] Potassium 4.2 3.5 - 5.1 mmol/L 02/21/2023 6:50 AM EDT [facility] Comment:Specimen slightly he molyzed. Chloride 104 98 - 107 mmol/L 02/21/2023 6:50 AM EDT + [facility] CO2 27 21 - 32 mmol/L 02/21/2023 6:50 AM EDT [facility] Anion Gap 7 5 - 15 mmol/L 02/21/2023 6:50 AM EDT [facility] Calcium 9.4 8.5 - 10.1 mg/dL 02/21/2023 6:50 AM EDT [facility] eGFR (Creatinine) >60 >=60 mL/min/1.7 3m2 02/21/2023 6:50 AM EDT [facility] Comment: Values < 60 mL/min/1.73 m2 may indicate CKD if present for more than three months AND creatinine is at steady state. The eGFR provides a rough estimate of kidney function. On 03/01/22 all [facility] Clinical Labs and Epic began using a jdb-vgnh-hmbao formula for estimating GFR called CKD-EPI Creatinine 2020. This equation reports eGFR based on creatinine, patient age, clinical sex, and is standardized to a body surface area of 1.73 m2. For the same creatinine, this new race-free eGFR will be lower than prior reported Black eGFR results and higher than prior Non-Black eGFR results. For further guidance, please refer to the CKD: Adult Utility Helicopter Repairer Signature pathway. Blood Venipuncture / Unknown 02/21/2023 6:10 AM EDT 02/21/2023 6:22 AM EDT us Alessandro Og MD LAB BLOOD ORDERABLES Final Result [facility] [address] [place] [address] from Last 3 Months or Most Recently Relevant to Health Maintenance Insurance [facility] MGD Member Subscriber Plan / Payer (Ef fective 2022-Present) Name:Nitesh Osorio Relation to Subscriber:Self Name:Nitesh Osorio Payer ID:[id number] (NAIC) Group ID:Not on file Type:Not on file Address: [address] [id number] MEDICARE [place] [facility] MEDICARE [facility] MGD MEDICARE Advance Directives * Full Code (Latest Code Status on File) Date Activated Date Inactivated Comments 02/19/2023 1:39 AM 02/23/2023 7:02 PM
--- OUTSIDE RECORDS SUMMARY | 2024-10-17 08:28 | XMS_ITS | Encounter Summary ---
Author Organization [facility] Address [address] [place] [address] Care Team Providers Care Youth Coordinator Name Role Phone Cecy García MD Primary Care Provider [phone] Encounter Details Date Type Department Care Team Description 2019 Fishing Line Winding Machine Operator Report Medical Records [address] [place] [address] Ovi Benz MD [address] [place] [address] Social History Tobacco Use Types Packs/Day Years [...] on filedocumented in this encounter Care Teams Youth Coordinator Relationship Specialty Start Date End Date Cecy García MD [address] [place] [address] PCP - General Internal Medicine 10/30/17 documented as of this encounter
== END 2024-10-17 08:24 | disposition home or self-care (01) ==
LOC: HO.HOSX 08:23
PROVIDERS: Visit Provider Orthopaedic Surgery
DX: M25.559 Pain in unspecified hip (principal); M16.11 Unilateral primary osteoarthritis, right hip; Z96.641 Presence of right artificial hip joint
CPT/HCPCS: 72170; 99212

== ENCOUNTER 2024-10-17 10:23 | Outpatient (AMB) | payer MEDICARE, MEDICAID, SELFPAY ==
--- NOTE | 2024-10-17 10:44 | MHC.OFFVIS ---
Vital Signs 10/17/24 10:45 Height 6 ft 3 in Weight 271 lb BMI 33.9 Intake Visit Reasons: New prob- Right hip OA Intake Note: Nitesh is a 59 year old male who presents today for a new problem visit with complaints of right hip pain . Patient reports that he has had pain in the right hip for at least 1 year now. Denies injury. He reports history of being very active. His pain is felt all the time, worse with activity. His PCP provided him with Celebrex for pain which was not helpful and then he was prescribed Meloxicam which is also not helping. Hx of Left DARIUS - at [facility] Allergies No Known Allergies Allergy (Verified 10/17/24 10:48) HPI HPI New prob- Right hip OA: Details: Nitesh is a 59 year old male who presents today for a new problem visit with complaints of right hip pain . Patient reports that he has had pain in the right hip for at least 1 year now. Denies injury. He reports history of being very active. His pain is felt all the time, worse with activity. His PCP provided him with Celebrex for pain which was not helpful and then he was prescribed Meloxicam which is also not helping. Hx of Left DARIUS - at [facility] Medical History (Updated 10/01/24 @ 12:37 by Liliane Mata PA-C) Acute pancreatitis Pancreatic pseudocyst Acute heart failure with preserved ejection fraction (HFpEF) Anemia Acute exacerbation of CHF (congestive heart failure) Morbid obesity Gastrointestinal bleeding History of cardioversion FARHEEN on CPAP Alcohol abuse HTN (hypertension) (HFpEF) heart failure with preserved ejection fraction Surgical History (Updated 10/17/24 @ 10:49 by Myrna Sears [facility]) History of left hip replacement History of cardiac radiofrequency ablation History of esophagogastroduodenoscopy (EGD) Hx of colonoscopy Status post ORIF of fracture of ankle Family History Mother HTN (hypertension) Diabetes mellitus Father Diabetes mellitus HTN (hypertension) Maternal Uncle Colon cancer Social History Household Members: Significant Other Household Members Other:: GF, daughter Housing: Apartment Are you a primary animal care specialist to a significant other at home: No Do you presently have visiting nurse or other home services: No Alcohol intake: former Comment: pt refusing high falls measures exc socks Patient Tobacco Use Status: Never used Tobacco e-Cigarette/Vaping Use: Never Used Second Hand Smoke Exposure: No Substance Use Type: Marijuana Advance Directives Date on File: 01/25/21 service: No Current occupational status: retired Current occupation: rt handed Cognitive needs: No Hearing needs: No Vision needs: No Assessment & Plan Assessment & Plan Orders: Orders XR pelvis 1-2V Today M25.559 - Pain in unspecified hip Coding
[2024-10-17 10:45] VITALS: BMI 33.9
--- NOTE | 2024-10-17 11:12 | MHC.OFFVIS ---
Vital Signs 10/17/24 10:45 Height 6 ft 3 in Weight 271 lb BMI 33.9 Intake Visit Reasons: New prob- Right hip OA Allergies No Known Allergies Allergy (Verified 10/17/24 10:48) HPI HPI New prob- Right hip OA: Details: Nitesh is an 89-year-old gentleman with severe right groin and hip pain. He had a left hip replacement done many years ago at [facility]. That was successful and he has had no pain since. He does not remember who did it however. He notes over the past several years he has had increasing pain in his right hip. He has been going to the and been more active and this is been causing him severe distress. At this point he can not even walk. He is having difficulty sleeping. He lives in a 3rd floor walk-up and has pain all the time. [facility] Medical History (Updated 10/01/24 @ 12:37 by Liliane Mata PA-C) Acute pancreatitis Pancreatic pseudocyst Acute heart failure with preserved ejection fraction (HFpEF) Anemia Acute exacerbation of CHF (congestive heart failure) Morbid obesity Gastrointestinal bleeding History of cardioversion FARHEEN on CPAP Alcohol abuse HTN (hypertension) (HFpEF) heart failure with preserved ejection fraction Surgical History (Updated 10/17/24 @ 10:49 by Myrna Sears [facility]) History of left hip replacement History of cardiac radiofrequency ablation History of esophagogastroduodenoscopy (EGD) Hx of colonoscopy Status post ORIF of fracture of ankle Family History Mother HTN (hypertension) Diabetes mellitus Father Diabetes mellitus HTN (hypertension) Maternal Uncle Colon cancer Social History Household Members: Significant Other Household Members Other:: GF, daughter Housing: Apartment Are you a primary care management specialist to a significant other at home: No Do you presently have visiting nurse or other home services: No Alcohol intake: former Comment: pt refusing high falls measures exc socks Patient Tobacco Use Status: Never used Tobacco e-Cigarette/Vaping Use: Never Used Second Hand Smoke Exposure: No Substance Use Type: Marijuana Advance Directives Date on File: 01/25/21 service: No Current occupational status: retired Current occupation: rt handed Cognitive needs: No Hearing needs: No Vision needs: No Physical Exam Vital Signs: BMI result Body Mass Index 33.9 Extrem Other: Left hip with full range of motion Right hip with no internal rotation while flexed. Severe pain with internal rotation. 10 degrees of abduction with pain. Positive Trendelenburg gait. Results Reviewed Results Reviewed: I personally reviewed relevant radiographs. Left DARIUS in expected post operative position with no hardware complications or evidence of loosening Right hip with severe arthritis. Assessment & Plan Assessment & Plan (1) Osteoarthritis of right hip: Code(s): M16.11 - Unilateral primary osteoarthritis, right hip Category: Medical Plan: This is a 59-year-old with severe osteoarthritis of the right hip. He can not function. This is end-stage and I recommend a hip replacement. He had a left hip replacement several years ago and understands the surgery and the postoperative precautions and is happy to proceed forward. He has a history of nonischemic cardiomyopathy and paroxysmal atrial fibrillation with an implantable cardioverter defibrillator but has been taken off his anticoagulation because he is doing well. He takes meloxicam which does not help. I would recommend transitioning off the meloxicam and starting Celebrex b.i.d. for pain. In the interim we will begin the preoperative clearance process for right hip replacement. I discussed with him the risks, benefits and alternatives of surgery including to, but not limited to, the risk of infection, dislocation, fracture, need for further surgery, medical complications associated with surgery. He understands this and like proceed forward accordingly. Orders: Orders XR pelvis 1-2V Today M25.559 - Pain in unspecified hip Coding Level of Care Code Est Pt Level 4 (45765) Diagnoses Osteoarthritis of right hip M16.11
--- OUTSIDE RECORDS SUMMARY | 2024-10-17 11:21 | XMS_ITS | Encounter Summary ---
Author Organization [facility] Address [address] [place] [address] Care Team Providers Care Beam Carrier Hauler Pusher Name Role Phone Unavailable Primary Care Provider Unavailabl e Reason for Visit * Reason Comments Med Change Request Encounter Details Date Type Department Care Team (Late st Contact Info) Description 03/23/2023 Refill [facility] [place] 194 [facility], [address], [place] [phone] Santi Mirza MD [address] [id number] Med Change Request Social History [...] your living situation today? I have a [facility] place to live 02/20/2023 Interpersonal Safety Answer [...]
--- OUTSIDE RECORDS SUMMARY | 2024-10-17 11:21 | XMS_ITS | Referral Summary ---
Author Organization [facility] Address [address] [place] [address] Care Team Providers Care Euclid Operator Name Role Phone Cecy García Primary Care Provider [phone] Allergies No known active allergies Medications amiodarone [...] to have alisha-duodenal hematoma so transferred to [facility]. With hypotension and lactic acidosis initially improved [...] to have alisha-duodenal hematoma so transferred to [facility]. With hypotension and lactic acidosis initially improved [...] PM EDT): Patient had prior admission to [facility] in February of last year where he [...] During his admission in February 2023 at [facility] he had alcohol withdrawal through day 5 [...] PM EDT): Status post 2 cardioversions at [place]. Continue with Eliquis. Continue with amiodarone for [...] elevation and prior normal colonoscopy reported at [facility] 8 years ago warranting return for repeat [...] in place. Patient had prior admission to [facility] in February of last year where he [...] Rectal polyp Medical Devices Implanted Type Area Boner Meat Device Identifier Shelf Expiration Date Model / Serial / Lot Soft 4x30 Embold - [id number] Implanted:Qty: 1 on 10/15/2023 at [facility] Implant [employer] [id number] 05/23/2026 [id number] / / [id number] Soft 4x30 Embold - [id number] Implanted:Qty: 1 on 10/15/2023 by Jeffrey Srivastava MD at [facility] Implant [employer] [id number] 03/08/2024 [id number] / / [id number] Soft 5x30 Embold - [id number] Implanted:Qty: 1 on 10/15/2023 by Jeffrey Srivastava MD at [facility] Implant [facility] [id number] / / Coil Embolization Fibered Detachable Us 5x15 Embold - [id number] Implanted:Qty: 1 on 10/15/2023 by Jeffrey Srivastava MD at [facility] Implant [facility] [id number] / / Device Closure Vascular Plug 6fr Angio-Seal Vip - [id number] Implanted:Qty: 1 on 10/15/2023 by Jeffrey Srivastava MD at [facility] Implant Right: Groin [employer] [id number] 06/18/2024 [id number] / / [id number] Procedures * Due to [place] [employer] law, this organization might not be sharing negative HIV tests. Procedure Name Priority Date/Time Associated Diagnosis Comments COMPREHENSIVE METABOLIC PANEL Routine 01/10/2024 5:49 AM EDT COLONOSCOPY 01/09/2024 from Last 3 Months or Most Recently Relevant to Health Maintenance Results * Due to [place] [employer] law, this organization might not be sharing negative HIV tests. * (ABNORMAL) Comprehensive metabolic panel (01/10/2024 5:49 AM EDT) NA 139 135 - 145 mmol/L 01/10/2024 8:46 AM EDT [facility] K 3.4(L) 3.5 - 5.3 mmol/L 01/10/2024 8:46 AM EDT [facility] Cl 103 98 - 107 mmol/L 01/10/2024 8:46 AM EDT [facility] CO2 26 24 - 32 mmol/L 01/10/2024 8:46 AM EDT [facility] Anion Gap 10 5 - 15 01/10/2024 8:46 AM EDT [facility] Glucose 89 65 - 99 mg/dL 01/10/2024 8:46 AM EDT [facility] Creatinine 0.86 0.60 - 1.30 mg/dL 01/10/2024 8:46 AM EDT [facility] Calcium 8.5(L) 8.6 - 10.5 mg/dL 01/10/2024 8:46 AM EDT [facility] Total Protein 5.8(L) 6.0 - 8.0 g/dL 01/10/2024 8:46 AM EDT [facility] Albumin 3.4(L) 3.5 - 5.2 g/dL 01/10/2024 8:46 AM EDT [facility] Bilirubin, Total 0.4 0.2 - 1.2 mg/dL 01/10/2024 8:46 AM EDT [facility] Alkaline Phosphatase 65 35 - 129 U/L 01/10/2024 8:46 AM EDT [facility] AST 14 10 - 40 U/L 01/10/2024 8:46 AM EDT [facility] ALT 13 10 - 40 U/L 01/10/2024 8:46 AM EDT [facility] BUN 7 7 - 23 mg/dL 01/10/2024 8:46 AM EDT [facility] eGFR >90 >=60 mL/min/1. 73m2 01/10/2024 8:46 AM EDT [facility] Comment:The estimated glomer ular [...] - 4.2 g/dL 01/10/2024 8:46 AM EDT [facility] A/G Ratio 1.4(L) 1.5 - 3.0 01/10/2024 8:46 AM EDT [facility] Blood Structure of peripheral vein / Unknown Venipuncture / Unknown 01/10/2024 5:49 AM EDT 01/10/2024 7:58 AM EDT us Arturo Perez MD LAB BLOOD ORDERABLES Final Result [facility] [address] [place] [address], [place] * COLONOSCOPY (01/09/2024) Narrative Procedure Note Leah Correa MD - 01/09/2024 10:13 AM EDT [facility] Gastroenterology Patient Name: Nitesh Osorio Procedure Date: 01/09/2024 10:13 AM Date of : 1965 Admit Type: Inpatient Age: 58 Room: [facility] Gender: Male Note Status: Finalized Attending [...] Most Recently Relevant to Health Maintenance Insurance [facility] [place] [id number] Advance Directives Documents on File Type Date Recorded Patient Urogynaecologist Expl [facility] Health Care Proxy 10/17/2023 9:51 AM [...] Fabian ) Devon Sister Alternate H [facility] Care Agent Care Teams Euclid Operator Relationship Specialty Start Date End Date Cecy García PCP - General Internal Medicine 10/27/23
--- OUTSIDE RECORDS SUMMARY | 2024-10-17 11:21 | XMS_ITS | Encounter Summary ---
Author Organization [facility] Address [address] [place] [address] Care Team Providers Care Bilingual Legal Assistant Name Role Phone Unavailable Primary Care Provider Unavailabl e Encounter Details Date Type Department Care Team (Late st Contact Info) Description 03/22/2023 Scanned Document [facility] [place] 194 [facility], [address] [place] [id number] Provider, Historical . Social History Tobacco Use [...] your living situation today? I have a [facility] place to live 02/20/2023 Interpersonal [...]
--- OUTSIDE RECORDS SUMMARY | 2024-10-17 11:21 | XMS_ITS | Encounter Summary ---
Author Organization [facility] Address [address] [place] [address] Care Team Providers Care Card Game Operator Name Role Phone Unavailable Primary Care Provider Unavailabl e Reason for Visit * Reason Comments Medication Refill Encounter Details Date Type Department Care Team (Late st Contact Info) Description 04/14/2023 Refill [facility] [place] [address] [facility], [place], [place] [phone] Santi Mirza MD [address] [phone] Medication Refill Social History Tobacco [...] your living situation today? I have a [facility] place to live 02/20/2023 Interpersonal Safety [...]
--- OUTSIDE RECORDS SUMMARY | 2024-10-17 11:21 | XMS_ITS | Clinical Summary ---
Author Organization [facility] Address [address] [place] [address] Care Team Providers Care Machine Hostler Name Role Phone eCcy García Primary Care Provider [phone] Allergies No known active allergies Medications amiodarone [...] to have alisha-duodenal hematoma so transferred to [facility]. With hypotension and lactic acidosis initially improved after 2 units of PRBCs. CTA at [facility] showed large hematoma involving the second and [...] to have alisha-duodenal hematoma so transferred to [facility]. With hypotension and lactic acidosis initially [...] PM EDT): Patient had prior admission to [place] in February of last year where he [...] During his admission in February 2023 at [place] he had alcohol withdrawal through day 5 [...] PM EDT): Status post 2 cardioversions at [place]. Continue with Eliquis. Continue with amiodarone for [...] elevation and prior normal colonoscopy reported at [facility] 8 years ago warranting return [...] in place. Patient had prior admission to [place] in February of last year where he [...] series) 2042 Medical Devices Implanted Type Area Edging Machine Operator Device Identifier Shelf Expiration Date Model / Serial / Lot Soft 4x30 Embold - [id number] Implanted:Qty: 1 on 10/15/2023 at [facility] Implant [employer] [id number] 05/23/2026 [id number] / / [id number] Soft 4x30 Embold - [id number] Implanted:Qty: 1 on 10/15/2023 by Jeffrey Srivastava MD at [facility] Implant [employer] [id number] 03/08/2024 [id number] / / [id number] Soft 5x30 Embold - [id number] Implanted:Qty: 1 on 10/15/2023 by Jeffrey Srivastava MD at [facility] Implant [employer] [id number] / / Coil Embolization Fibered Detachable Us 5x15 Embold - [id number] Implanted:Qty: 1 on 10/15/2023 by Jeffrey Srivastava MD at [facility] Implant [employer] [id number] / / Device Closure Vascular Plug 6fr Angio-Seal Vip - [id number] Implanted:Qty: 1 on 10/15/2023 by Jeffrey Srivastava MD at [facility] Implant Right: Groin [employer] [id number] 06/18/2024 [id number] / / [id number] Procedures * Due to [place] state [...] - 145 mmol/L 01/10/2024 8:46 AM EDT [facility] K 3.4(L) 3.5 - 5.3 mmol/L 01/10/2024 8:46 AM EDT [facility] [facility] [employer] Cl 103 98 - 107 mmol/L 01/10/2024 8:46 AM EDT [employer] [facility] CO2 26 24 - 32 mmol/L 01/10/2024 8:46 AM EDT [employer] [facility] Anion Gap 10 5 - 15 01/10/2024 8:46 AM EDT [facility] [employer] Glucose 89 65 - 99 mg/dL 01/10/2024 8:46 AM EDT [employer] [facility] [employer] Creatinine 0.86 0.60 - 1.30 mg/dL 01/10/2024 8:46 AM EDT [facility] Calcium 8.5(L) 8.6 - 10.5 mg/dL 01/10/2024 8:46 AM EDT [employer] [facility] [employer] Total Protein 5.8(L) 6.0 - 8.0 g/dL 01/10/2024 8:46 AM EDT [facility] Albumin 3.4(L) 3.5 - 5.2 g/dL 01/10/2024 8:46 AM EDT [employer] [facility] [employer] Bilirubin, Total 0.4 0.2 - 1.2 mg/dL 01/10/2024 8:46 AM EDT [facility] Alkaline Phosphatase 65 35 - 129 U/L 01/10/2024 8:46 AM EDT [facility] [employer] [facility] AST 14 10 - 40 U/L 01/10/2024 8:46 AM EDT [facility] ALT 13 10 - 40 U/L 01/10/2024 8:46 AM EDT [facility] BUN 7 7 - 23 mg/dL 01/10/2024 8:46 AM EDT [facility] eGFR >90 >=60 mL/min/1. 73m2 01/10/2024 8:46 AM EDT [facility] Comment:The estimated glomer [...] - 4.2 g/dL 01/10/2024 8:46 AM EDT [facility] A/G Ratio 1.4(L) 1.5 - 3.0 01/10/2024 8:46 AM EDT [facility] Blood Structure of peripheral vein / Unknown Venipuncture / Unknown 01/10/2024 5:49 AM EDT 01/10/2024 7:58 AM EDT us Arturo Perez MD LAB BLOOD ORDERABLES Final Result [facility] [address] [place] [address], * COLONOSCOPY (01/09/2024) Narrative Procedure Note Leah Correa MD - 01/09/2024 10:13 AM EDT [facility] Gastroenterology Patient Name: Nitesh Osorio Procedure Date: 01/09/2024 10:13 AM Date of : 1965 Admit Type: Inpatient Age: 58 Room: [place] [address] Gender: Male Note Status: Finalized Attending MD: [...] Relevant to Health Maintenance Insurance [facility] Advance Directives Documents on File Type Date Recorded Patient Forestry Professor Expl anation Health Care Proxy 10/17/2023 9:51 [...] ( Lue ) Devon Sister Alternate H [facility] Care Agent Care Teams Machine Hostler Relationship Specialty Start Date End Date RaquelCecy PCP - General Internal Medicine 10/27/23
--- OUTSIDE RECORDS SUMMARY | 2024-10-17 11:21 | XMS_ITS | Encounter Summary ---
Author Organization [facility] Address [address] [place] [address] Care Team Providers Care Facility Rehab Director Name Role Phone Unavailable Primary Care Provider Unavailabl e Reason for Visit * Reason Comments Medication Refill Encounter Details Date Type Department Care Team (Late st Contact Info) Description 04/14/2024 Refill [facility] [place] 194 [facility], [address], [place] [phone] Santi Mirza MD [address] [phone] Medication Refill Social History Tobacco [...] your living situation today? I have a [facility] place to live 02/20/2023 Interpersonal Safety [...]
--- OUTSIDE RECORDS SUMMARY | 2024-10-17 11:21 | XMS_ITS | Clinical Summary ---
Author Organization [facility] [address] [facility] Address [address] [place] [address] Phone Care Team Providers Care Manager Acquisition Name Role Phone Unavailable Primary Care Provider [...] your living situation today? I have a [facility] place to live 02/20/2023 Interpersonal [...] this topic Medical Devices Implanted Type Area Hand Packager Device Identifier Shelf Expiration Date Model / Serial / Lot Lead Sprint Quattro [id number] - [id number] Implanted:Qty: 1 on 02/21/2023 by Justus Beyer MD at [facility] [address] Implant Right: VENTRICLE MEDTRONIC 11/24/2024 [id number] / [id number] / [id number] Envelope Absorbable Antibacterial [id number] - [id number] Implanted:Qty: 1 on 02/21/2023 by Justus Beyer MD at [facility] [address] Implant Left: Chest Wall [employer] 11/26/2023 [id number] / / [id number] Icd [place] Mri Vr Single Df4 - [id number] Implanted:Qty: 1 on 02/21/2023 by Justus Beyer MD at [facility] [address] Implant Left: Chest [employer] 07/13/2024 [id number] / [id number] / [id number] Procedures Procedure Name Priority Date/Time Associated Diagnosis Comments BASIC METABOLIC PANEL Routine 02/21/2023 6:10 AM EDT from Last 3 Months or Most Recently Relevant to Health Maintenance Results * Basic metabolic panel (02/21/2023 6:10 AM EDT) [facility] Glucose 79 65 - 110 mg/dL 02/21/2023 6:50 AM EDT [facility] Comment: Non-fasting: ??65-110 mg/dL Fasting (minimum 6 hrs): ??65-99 mg/dL BUN 10 7 - 18 mg/dL 02/21/2023 6:50 AM EDT + [facility] Creatinine 0.89 0.70 - 1.30 mg/dL 02/21/2023 6:50 AM EDT L + [facility] Sodium 138 136 - 145 mmol/L 02/21/2023 6:50 AM EDT + [facility] Potassium 4.2 3.5 - 5.1 mmol/L 02/21/2023 6:50 AM EDT [facility] Comment:Specimen slightly he molyzed. Chloride 104 98 - 107 mmol/L 02/21/2023 6:50 AM EDT + [facility] CO2 27 21 - 32 mmol/L 02/21/2023 6:50 AM EDT [facility] Anion Gap 7 5 - 15 mmol/L 02/21/2023 6:50 AM EDT [facility] Calcium 9.4 8.5 - 10.1 mg/dL 02/21/2023 6:50 AM EDT [facility] eGFR (Creatinine) >60 >=60 mL/min/1.7 3m2 02/21/2023 6:50 AM EDT [facility] Comment: Values < 60 mL/min/1.73 m2 may indicate CKD if present for more than three months AND creatinine is at steady state. The eGFR provides a rough estimate of kidney function. On 03/01/22 all [facility] Clinical Labs and Epic began using a ize-vvfc-obsmd formula for estimating GFR called CKD-EPI Creatinine 2020. This equation reports eGFR based on creatinine, patient age, clinical sex, and is standardized to a body surface area of 1.73 m2. For the same creatinine, this new race-free eGFR will be lower than prior reported Black eGFR results and higher than prior Non-Black eGFR results. For further guidance, please refer to the CKD: Adult Certified Scrub Tech Signature pathway. Blood Venipuncture / Unknown 02/21/2023 6:10 AM EDT 02/21/2023 6:22 AM EDT us Alessandro Og MD LAB BLOOD ORDERABLES Final Result L + M [facility] [address] [place] [address] from Last 3 Months or Most Recently Relevant to Health Maintenance Insurance [facility] MGD Member Subscriber Plan / Payer (Ef fective 2022-Present) Name:Nitesh Osorio Relation to Subscriber:Self Name:Nitesh Osorio Payer ID:[id number] (NAIC) Group ID:Not on file Type:Not on file Address: [address] [id number] MEDICARE [facility] MED[facility]ARE [facility]GD MEDICARE Advance Directives * Full Code (Latest Code Status on File) Date Activated Date Inactivated Comments 02/19/2023 1:39 AM 02/23/2023 7:02 PM
--- OUTSIDE RECORDS SUMMARY | 2024-10-17 11:22 | XMS_ITS | Clinical Summary ---
Author Organization [facility] Address [address] [place] [id number] Care Team Providers Care Stick Inserter Name Role Phone Cecy García MD Primary Care Provider Active Problems Problem Noted Date Diagnosed Date Hypertension 06/10/2019 Bilateral knee pain 01/18/2018 Surgical History Surgery Date Site/Laterality Comments ANKLE FRACTURE SURGERY PROCEDURE: [place] OPEN TREATMENT MEDIAL MALLEOLUS FRACTURE KNEE ARTHROSCOPY W/ MENISCAL REPAIR PROCEDURE: [place] ARTHROSCOPY KNEE W/MENISCUS RPR MEDIAL/LATERAL Family History [...] Screening (Lipid Panel) 03/13/2024 03/13/2019 COVID-19 Vaccine (2023-2 5 season) 2024 Hypertension/CHF/CAD Annual BMP Blood Test 01/09/2025 01/10/2024 Influenza Vaccine (Season Ended) 2025 Colorectal Cancer Screening: Colonoscopy 11/19/2028 11/19/2018 Hepatitis [...] Result * Hepatitis C Screening (10/15/2023) Pathologist [facility] Hepatitis C Screening abstracted Historical Provider HEALTH MAINTENANCE Final Result * (ABNORMAL) Lipid panel (03/13/2019) [facility] LDL/HDL Ratio 3 0 - 4 Triglycerides 54 0 - 150 mg/dL Cholesterol 189 0 - 200 mg/dL HDL 57 >=40 mg/dL LDL Cholesterol 122(A) 0 - 100 mg/dL Blood Venous blood specimen / Unknown Historical Provider LAB BLOOD ORDERABLES Lore l Result * Colonoscopy (11/19/2018) Pathologist [facility] Colonoscopy normal, abstracted Anatomical Region Laterality Modality Other Historical Provider HEALTH MAINTENANCE Final Result from Last 3 Months or Most Recently Relevant to Health Maintenance Care Teams Stick Inserter Relationship Specialty Start Date End Date Cecy García MD [address] [place] [address] PCP - General Internal Medicine 10/30/17
== END 2024-10-17 11:18 | disposition home or self-care (01) ==
LOC: HO.HOS 10:24
PROVIDERS: Visit Provider Orthopaedic Surgery
DX: M16.11 Unilateral primary osteoarthritis, right hip (principal); T84.84XA Pain due to internal orthopedic prosthetic devices, implants and grafts, initial encounter
CPT/HCPCS: 99214

== ENCOUNTER → 2024-10-17 10:34 | Outpatient (BNV) | payer MEDICARE, MEDICAID, SELFPAY | PROVIDERS: Visit Provider Radiology Diagnostic Radiology | DX: M16.11 Unilateral primary osteoarthritis, right hip (principal); Z96.642 Presence of left artificial hip joint | CPT/HCPCS: 72170 ==

== ENCOUNTER → 2024-10-24 08:05 | Outpatient (BNV) | payer MEDICARE, MEDICAID, SELFPAY | PROVIDERS: Visit Provider Radiology Diagnostic Radiology | DX: D37.8 Neoplasm of uncertain behavior of other specified digestive organs (principal) | CPT/HCPCS: 74183 ==

== ENCOUNTER 2024-10-24 08:34 | Outpatient (REF) | payer MEDICARE, MEDICAID, SELFPAY ==
--- NOTE | ~2024-10-24 | MR_ITS ---
CLINICAL HISTORY: K86.3 - Pseudocyst of pancreas MR ABDOMEN WITH AND WITHOUT GADOLINIUM Comparison: CT/SR - CT ABDOMEN PELVIS W IV CON - 08/09/24 07:44 EST Findings: There is motion artifact limiting evaluation. There is a 6 mm cystic lesion in the tail of the pancreas which appears to communicate with the main pancreatic duct most suggestive of an IPMN. No pancreatic mass or pseudocyst is identified. There is mild irregularity of the pancreatic duct which is not abnormally dilated. The gallbladder is incompletely distended. There is a tiny intraluminal filling defect suggesting a stone. There is no intrahepatic biliary ductal dilatation. The common bile duct measures 4.2 mm. No focal hepatic, splenic or right adrenal lesion. There is a 1.3 cm left adrenal nodule with signal loss on in phase and opposed phase imaging most suggestive of a benign adenoma. No hydronephrosis or renal cortical lesion. No AAA or retroperitoneal lymphadenopathy. No bowel obstruction or ascites. Thoracolumbar spondylosis. IMPRESSION: 1. Motion affected study. 2. Findings are suggestive of a 6 mm main duct IPMN (intraductal papillary mucinous neoplasm). 3. No evidence for a pancreatic pseudocyst. 4. Irregularity of the pancreatic duct with no significant dilatation can be associated with chronic pancreatitis. 5. Probable cholelithiasis. No choledocholithiasis. This document has been electronically signed by: Nalini Anderson DO on 10/24/2024 21:31:06
--- OUTSIDE RECORDS SUMMARY | 2024-10-24 08:50 | XMS_ITS | Encounter Summary ---
Author Organization [facility] Address [address] [place] [address] Care Team Providers Care Retail Specialist Name Role Phone Unavailable Primary Care Provider Unavailabl e Reason for Visit * Reason Comments Med Change Request Encounter Details Date Type Department Care Team (Late st Contact Info) Description 03/23/2023 Refill [facility] [place] [address] [facility], [place], [place] [id number] Santi Mirza MD [address] [phone] Med Change Request Social History [...] your living situation today? I have a [facility] place to live 02/20/2023 Interpersonal [...]
--- OUTSIDE RECORDS SUMMARY | 2024-10-24 08:50 | XMS_ITS | Encounter Summary ---
Author Organization [facility] Address [address] [place] [address] Care Team Providers Care Adolescent Psychiatrist Name Role Phone Unavailable Primary Care Provider Unavailabl e Encounter Details Date Type Department Care Team (Late st Contact Info) Description 03/22/2023 Scanned Document [facility] [place] [address] [facility], [place] [address] Provider, Historical . Social History Tobacco Use [...] living situation today? I have a [facility] place to live 02/20/2023 Interpersonal [...]
--- OUTSIDE RECORDS SUMMARY | 2024-10-24 08:51 | XMS_ITS | Clinical Summary ---
Author Organization [facility] Address [address] [place] [address] Care Team Providers Care Floor Sander Name Role Phone Cecy García Primary Care Provider [phone] Allergies No known active allergies Medications amiodarone [...] to have alisha-duodenal hematoma so transferred to [facility]. With hypotension and lactic acidosis initially improved after 2 units of PRBCs. CTA at [facility] showed large hematoma involving the [...] to have alisha-duodenal hematoma so transferred to [facility]. With hypotension and lactic acidosis [...] PM EDT): Patient had prior admission to [facility] in February of last year where he [...] During his admission in February 2023 at [facility] he had alcohol withdrawal through day 5 [...] PM EDT): Status post 2 cardioversions at [place]. Continue with Eliquis. Continue with amiodarone for [...] and prior normal colonoscopy reported at [facility] 8 years ago warranting return [...] in place. Patient had prior admission to [facility] in February of last year where he [...] series) 2042 Medical Devices Implanted Type Area Wood Machinist Device Identifier Shelf Expiration Date Model / Serial / Lot Soft 4x30 Embold - [id number] Implanted:Qty: 1 on 10/15/2023 at [facility] Implant [employer] [id number] 05/23/2026 [id number] / / [id number] Soft 4x30 Embold - [id number] Implanted:Qty: 1 on 10/15/2023 by Jeffrey Srivastava MD at [facility] Implant [employer] [id number] 03/08/2024 [id number] / / [id number] Soft 5x30 Embold - [id number] Implanted:Qty: 1 on 10/15/2023 by Jeffrey Srivastava MD at [facility] Implant [employer] [id number] / / Coil Embolization Fibered Detachable Us 5x15 Embold - [id number] Implanted:Qty: 1 on 10/15/2023 by Jeffrey Srivastava MD at [facility] Implant [employer] [id number] / / Device Closure Vascular Plug 6fr Angio-Seal Vip - [id number] Implanted:Qty: 1 on 10/15/2023 by Jeffrey Srivastava MD at [facility] Implant Right: Groin [employer] [id number] 06/18/2024 [id number] / / [id number] Procedures * Due to [place] state law, this organization might not be sharing negative HIV tests. Procedure Name Priority Date/Time Associated Diagnosis Comments COMPREHENSIVE METABOLIC PANEL Routine 01/10/2024 5:49 AM EDT COLONOSCOPY 01/09/2024 from Last 3 Months or Most Recently Relevant to Health Maintenance Results * Due to [place] state law, this organization might not be sharing negative HIV tests. * (ABNORMAL) Comprehensive metabolic panel (01/10/2024 5:49 AM EDT) NA 139 135 - 145 mmol/L 01/10/2024 8:46 AM EDT [facility] K 3.4(L) 3.5 - 5.3 mmol/L 01/10/2024 8:46 AM EDT [facility] Cl 103 98 - 107 mmol/L 01/10/2024 8:46 AM EDT [facility] CO2 26 24 - 32 mmol/L 01/10/2024 8:46 AM EDT [facility] Anion Gap 10 5 - 15 01/10/2024 8:46 AM EDT [facility] Glucose 89 65 - 99 mg/dL 01/10/2024 8:46 AM EDT [facility] Creatinine 0.86 0.60 - 1.30 mg/dL 01/10/2024 8:46 AM EDT [facility] Calcium 8.5(L) 8.6 - 10.5 mg/dL 01/10/2024 8:46 AM EDT [facility] Total Protein 5.8(L) 6.0 - 8.0 g/dL 01/10/2024 8:46 AM EDT [facility] Albumin 3.4(L) 3.5 - 5.2 g/dL 01/10/2024 8:46 AM EDT [facility] Bilirubin, Total 0.4 0.2 - 1.2 mg/dL 01/10/2024 8:46 AM EDT [facility] Alkaline Phosphatase 65 35 - 129 U/L 01/10/2024 8:46 AM EDT [facility] AST 14 10 - 40 U/L 01/10/2024 8:46 AM EDT [facility] ALT 13 10 - 40 U/L 01/10/2024 8:46 AM EDT [facility] BUN 7 7 - 23 mg/dL 01/10/2024 8:46 AM EDT [facility] eGFR >90 >=60 mL/min/1. 73m2 01/10/2024 8:46 AM EDT [facility] Comment:The estimated [...] - 4.2 g/dL 01/10/2024 8:46 AM EDT [facility] A/G Ratio 1.4(L) 1.5 - 3.0 01/10/2024 8:46 AM EDT [facility] Blood Structure of peripheral vein / Unknown Venipuncture / Unknown 01/10/2024 5:49 AM EDT 01/10/2024 7:58 AM EDT us Arturo Perez MD LAB BLOOD ORDERABLES Final Result [facility] [address] [place] [address], * COLONOSCOPY (01/09/2024) Narrative Procedure Note Leah Correa MD - 01/09/2024 10:13 AM EDT [facility] Patient Name: Nitesh Osorio Procedure Date: 01/09/2024 10:13 AM Date of : 1965 Admit Type: Inpatient Age: 58 Room: [place] [address] Gender: Male Note Status: Finalized Attending MD: [...] Most Recently Relevant to Health Maintenance Insurance [facility] Advance Directives Documents on File Type Date Recorded 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
--- OUTSIDE RECORDS SUMMARY | 2024-10-24 08:51 | XMS_ITS | Clinical Summary ---
Author Organization [facility] Address [address] [place] [phone] Care Team Providers Care Oil Winterizer Name Role Phone Cecy García MD Primary Care Provider Active Problems Problem Noted Date Diagnosed Date Hypertension 06/10/2019 Bilateral knee pain 01/18/2018 Surgical History Surgery Date Site/Laterality Comments ANKLE FRACTURE SURGERY PROCEDURE: [place] OPEN TREATMENT MEDIAL MALLEOLUS FRACTURE KNEE ARTHROSCOPY W/ MENISCAL REPAIR PROCEDURE: [place] ARTHROSCOPY KNEE W/MENISCUS RPR MEDIAL/LATERAL Family History [...] age to complete this topic Meningococcal B Vaccine Aged Out No l onger eligible based on patient's age to complete [...] Hepatitis C Screening (10/15/2023) Pathologist [facility] Hepatitis C Screening abstracted Historical Provider HEALTH MAINTENANCE Final Result * (ABNORMAL) Lipid panel (03/13/2019) [facility] LDL/HDL Ratio 3 0 - 4 Triglycerides 54 0 - 150 mg/dL Cholesterol 189 0 - 200 mg/dL HDL 57 >=40 mg/dL LDL Cholesterol 122(A) 0 - 100 mg/dL Blood Venous blood specimen / Unknown Historical Provider LAB BLOOD ORDERABLES Lore l Result * Colonoscopy (11/19/2018) Pathologist [facility] Colonoscopy normal, abstracted Anatomical Region Laterality Modality Other Historical Provider HEALTH MAINTENANCE Final Result from Last 3 Months or Most Recently Relevant to Health Maintenance Care Teams Oil Winterizer Relationship Specialty Start Date End Date Cecy García MD [address] [place] [address] PCP - General Internal Medicine 10/30/17
--- OUTSIDE RECORDS SUMMARY | 2024-10-24 08:51 | XMS_ITS | Referral Summary ---
Author Organization [facility] Address [address] [place] [address] Care Team Providers Care Nitro Man Name Role Phone Cecy García Primary Care Provider [phone] Allergies No known active allergies Medications amiodarone [...] have alisha-duodenal hematoma so transferred to [facility]. With hypotension and lactic acidosis initially improved after 2 units of PRBCs. CTA at [facility] showed large hematoma involving the second and [...] have alisha-duodenal hematoma so transferred to [facility]. With hypotension and lactic acidosis initially [...] PM EDT): Patient had prior admission to [facility] in February of last year where he [...] During his admission in February 2023 at [facility] he had alcohol withdrawal through day 5 [...] PM EDT): Status post 2 cardioversions at [place]. Continue with Eliquis. Continue with amiodarone for [...] elevation and prior normal colonoscopy reported at [facility] 8 years ago warranting return for [...] in place. Patient had prior admission to [facility] in February of last year where he [...] Rectal polyp Medical Devices Implanted Type Area Community Center Worker Device Identifier Shelf Expiration Date Model / Serial / Lot Soft 4x30 Embold - [id number] Implanted:Qty: 1 on 10/15/2023 at [facility] Implant [employer] [id number] 05/23/2026 [id number] / / [id number] Soft 4x30 Embold - [id number] Implanted:Qty: 1 on 10/15/2023 by Jeffrey Srivastava MD at [facility] Implant [employer] [id number] 03/08/2024 [id number] / / [id number] Soft 5x30 Embold - [id number] Implanted:Qty: 1 on 10/15/2023 by Jeffrey Srivastava MD at [facility] Implant [facility] [id number] / / Coil Embolization Fibered Detachable Us 5x15 Embold - [id number] Implanted:Qty: 1 on 10/15/2023 by Jeffrey Srivastava MD at [facility] Implant [facility] [id number] / / Device Closure Vascular Plug 6fr Angio-Seal Vip - [id number] Implanted:Qty: 1 on 10/15/2023 by Jeffrey Srivastava MD at [facility] Implant Right: Groin [employer] [id number] 06/18/2024 [id number] / / [id number] Procedures * Due to [place] [employer] law, this organization might not be sharing negative HIV tests. Procedure Name Priority Date/Time Associated Diagnosis Comments COMPREHENSIVE METABOLIC PANEL Routine 01/10/2024 5:49 AM EDT COLONOSCOPY 01/09/2024 from Last 3 Months or Most Recently Relevant to Health Maintenance Results * Due to [place] [employer] law, this organization might not be sharing negative HIV tests. * (ABNORMAL) Comprehensive metabolic panel (01/10/2024 5:49 AM EDT) NA 139 135 - 145 mmol/L 01/10/2024 8:46 AM EDT [facility] K 3.4(L) 3.5 - 5.3 mmol/L 01/10/2024 8:46 AM EDT [facility] Cl 103 98 - 107 mmol/L 01/10/2024 8:46 AM EDT [facility] CO2 26 24 - 32 mmol/L 01/10/2024 8:46 AM EDT [facility] Anion Gap 10 5 - 15 01/10/2024 8:46 AM EDT [facility] Glucose 89 65 - 99 mg/dL 01/10/2024 8:46 AM EDT [facility] Creatinine 0.86 0.60 - 1.30 mg/dL 01/10/2024 8:46 AM EDT [facility] Calcium 8.5(L) 8.6 - 10.5 mg/dL 01/10/2024 8:46 AM EDT [facility] Total Protein 5.8(L) 6.0 - 8.0 g/dL 01/10/2024 8:46 AM EDT [facility] Albumin 3.4(L) 3.5 - 5.2 g/dL 01/10/2024 8:46 AM EDT [facility] Bilirubin, Total 0.4 0.2 - 1.2 mg/dL 01/10/2024 8:46 AM EDT [facility] Alkaline Phosphatase 65 35 - 129 U/L 01/10/2024 8:46 AM EDT [facility] AST 14 10 - 40 U/L 01/10/2024 8:46 AM EDT [facility] ALT 13 10 - 40 U/L 01/10/2024 8:46 AM EDT [facility] BUN 7 7 - 23 mg/dL 01/10/2024 8:46 AM EDT [facility] eGFR >90 >=60 mL/min/1. 73m2 01/10/2024 8:46 AM EDT [facility] Comment:The estimated glomer ular [...] - 4.2 g/dL 01/10/2024 8:46 AM EDT [facility] A/G Ratio 1.4(L) 1.5 - 3.0 01/10/2024 8:46 AM EDT [facility] Blood Structure of peripheral vein / Unknown Venipuncture / Unknown 01/10/2024 5:49 AM EDT 01/10/2024 7:58 AM EDT us Arturo Perez MD LAB BLOOD ORDERABLES Final Result [facility] [address] [place] [address], [place] * COLONOSCOPY (01/09/2024) Narrative Procedure Note Leah Correa MD - 01/09/2024 10:13 AM EDT [facility] Gastroenterology Patient Name: Nitesh Osorio Procedure Date: 01/09/2024 10:13 AM Date of : 1965 Admit Type: Inpatient Age: 58 Room: [facility] Gender: Male Note Status: [...] Most Recently Relevant to Health Maintenance Insurance [facility] [place] [id number] Advance Directives Documents on File Type Date Recorded Patient Watch Crystal Edge Grinder Expl [facility] Health Care Proxy 10/17/2023 9:51 AM 2020 [...] ( Fabian ) Devon Sister Alternate H [facility] Care Agent Care Teams Nitro Man Relationship Specialty Start Date End Date Cecy García PCP - General Internal Medicine 10/27/23
--- OUTSIDE RECORDS SUMMARY | 2024-10-24 08:51 | XMS_ITS | Encounter Summary ---
Author Organization [facility] Address [address] [place] [address] Care Team Providers Care Securities Adviser Name Role Phone Unavailable Primary Care Provider Unavailabl e Reason for Visit * Reason Comments Medication Refill Encounter Details Date Type Department Care Team (Late st Contact Info) Description 04/14/2023 Refill [facility] [place] 194 [facility], [address], [place] [phone] Santi Mirza MD [address] [address] Medication Refill Social History Tobacco [...] your living situation today? I have a [facility] place to live 02/20/2023 Interpersonal Safety [...]
--- OUTSIDE RECORDS SUMMARY | 2024-10-24 08:51 | XMS_ITS | Encounter Summary ---
Author Organization [facility] Address [address] [place] [address] Care Team Providers Care Sericulture Teacher Name Role Phone Unavailable Primary Care Provider Unavailabl e Reason for Visit * Reason Comments Medication Refill Encounter Details Date Type Department Care Team (Late st Contact Info) Description 04/14/2024 Refill [facility] [place] 194 [facility], [address], [place] [phone] Santi Mirza MD [address] [address] Medication Refill Social History Tobacco [...] your living situation today? I have a [facility] place to live 02/20/2023 Interpersonal Safety [...]
[2024-10-24] MEDS: gadobutroL 10 ML VIAL IVPUSH (10:24)
== END 2024-10-24 08:35 | disposition home or self-care (01) ==
LOC: HO.MRI 08:34
PROVIDERS: Visit Provider Internal Medicine Gastroenterology
DX: K86.3 Pseudocyst of pancreas (principal)
CPT/HCPCS: 74183; A9585

== ENCOUNTER 2024-11-11 10:08 | Outpatient (AMB) | payer MEDICARE, MEDICAID, SELFPAY ==
--- NOTE | 2024-11-11 10:09 | A.OFFVIS_ITS ---
Vital Signs 11/11/24 10:10 Height 6 ft 3 in Weight 275 lb 9.245 oz BMI 34.4 BP 122/68 Blood Pressure Location Lt brachial Position Sitting Pulse 86 Pulse Source Pulse Oximeter Intake Visit Reasons: 3m follow up Allergies No Known Allergies Allergy (Verified 10/17/24 10:48) Medication List - Last Reconciled 11/11/24 by Fabricio Chaudhary MD blood pressure monitor (Blood Pressure Kit) As directed celecoxib (Celebrex) 200 mg PO BID empagliflozin (Jardiance) 10 mg PO DAILY furosemide 40 mg PO DAILY metoprolol succinate ER (Toprol XL) 100 mg PO DAILY miscellaneous medical supply (Blood Pressure Cuff) As directed omeprazole 20 mg PO QAM ondansetron 4 mg PO Q8H PRN spironolactone 25 mg See Protocol PO DAILY valsartan 160 mg See Protocol PO BID HPI Comments Details: Nitesh returns for follow-up regarding atrial fibrillation and cardiomyopathy. Complicated history. History of atrial fibrillation and prior cardioversions. He was maintained on flecainide. In 2022, he was in [place] during camping for the summer time. At that time, he was drinking a lot of alcohol. Following that, presyncopal type symptoms leading to emergent medical care. Apparently, he was in atrial fibrillation with rapid rate that degenerated into ventricular tachycardia type rhythm. That required emergent cardioversion. Eventually, admitted to local hospital where he underwent cardiac catheterization as well as ICD placement. In 2023, he has had multiple hospitalizations for GI bleeding and has been transferred to [facility]. He is still drinking but not as much as before. After this, he underwent atrial fibrillation ablation. He is off the amiodarone and Eliquis. Most recently, he has had yet another hospitalization for pancreatic issues. In the last few weeks, no new concerns. He states he feels good and does not have any cardiac symptoms. Getting along okay. Planning to go on vacation that he usually does not summer. However, advised him not to drink alcohol excessively due to previous issues. It seems he also needs hip surgery. [facility] Medical History (Updated 11/11/24 @ 11:26 by Fabricio Chaudhary MD) Acute pancreatitis Pancreatic pseudocyst Acute heart failure with preserved ejection fraction (HFpEF) Anemia Acute exacerbation of CHF (congestive heart failure) Morbid obesity Gastrointestinal bleeding History of cardioversion FARHEEN on CPAP Alcohol abuse HTN (hypertension) (HFpEF) heart failure with preserved ejection fraction Surgical History (Updated 10/17/24 @ 10:49 by Myrna Sears CMA) History of left hip replacement History of cardiac radiofrequency ablation History of esophagogastroduodenoscopy (EGD) Hx of colonoscopy Status post ORIF of fracture of ankle Family History Mother HTN (hypertension) Diabetes mellitus Father Diabetes mellitus HTN (hypertension) Maternal Uncle Colon cancer Social History Household Members: Significant Other Household Members Other:: GF, daughter Housing: Apartment Are you a primary manager intensive care unit to a significant other at home: No Do you presently have visiting nurse or other home services: No Alcohol intake: former Comment: pt refusing high falls measures exc socks Patient Tobacco Use Status: Never used Tobacco e-Cigarette/Vaping Use: Never Used Second Hand Smoke Exposure: No Substance Use Type: Marijuana Advance Directives Date on File: 01/25/21 service: No Current occupational status: retired Current occupation: rt handed Cognitive needs: No Hearing needs: No Vision needs: No Review of Systems Const Denies weakness ENT Denies dizziness Card Denies chest pain, Denies chest pain with activity, Denies syncope, Denies rapid heart rate, Denies pedal edema, Denies edema, Denies leg edema, Denies lightheadedness, Denies palpitations, Denies dyspnea, Denies dyspnea on exertion and Denies orthopnea Resp Denies cough, Denies dyspnea and Denies dyspnea on exertion GI Denies hematochezia and Denies change in stool character Musc Denies abnormal gait, Denies muscle cramps, Denies muscle weakness, Denies numbness, Denies radiating pain into limb and Denies tingling Neuro Denies abnormal gait, Denies dizziness, Denies syncope, Denies numbness, Denies tingling and Denies weakness Endo Denies palpitations Physical Exam Vital Signs: Last Vital Signs Pulse 86 11/11/24 10:10 BP 122/68 11/11/24 10:10 BMI result Body Mass Index 34.4 Const General: comfortable and no acute distress Orientation/consciousness: patient oriented x3 HEENT Other: Unremarkable Head: Yes normal to inspection Neck Neck: Yes normal visual inspection Chest Chest palpation & inspection: normal inspection of the chest Resp Auscultation: clear to auscultation bilaterally Cardio Palpation: normal PMI Heart sounds: S1 normal heart sound present, S2 normal heart sound present, no gallops, no murmurs and no rubs GI Palpation (GI): Soft to palpation Back/Spine/Pelvis Other: unremarkable Skin General skin exam: no rashes or lesions noted Neuro General: patient oriented x3 Extrem General: Yes normal to inspection Psych Mental Status: mental status grossly normal Assessment & Plan Assessment & Plan (1) PAF (paroxysmal atrial fibrillation): Code(s): I48.0 - Paroxysmal atrial fibrillation Category: Medical Plan: Status post pulmonary vein isolation for atrial fibrillation from 04/2024. Remains in sinus rhythm. Off amiodarone/ Eliquis. He has had multiple episodes of GI bleeding and we will monitor the ICD for any recurring atrial fibrillation. If that is the case, then consider Watchman dev ice. Continue beta-blockers. (2) NICM (nonischemic cardiomyopathy): Code(s): I42.8 - Other cardiomyopathies Category: Medical Plan: In the past, suspected tachycardia induced cardiomyopathy. Then recovered EF. Per [place] records, apparently apical akinesis. LVEF was 64%. Cardiac catheterization 02/2023 with normal coronary arteries. Cardiac MRI with LVEF of 55%. No wall motion abnormalities. Subendocardial delayed enhancement in basal to mid anterolateral segments suggesting fibrosis from possible prior myocarditis. Other findings suggestive of diffuse myocardial fibrosis. In the most recent echocardiogram, LVEF is 55-60%. Moderately dilated right ventricle with preserved function. Continue diuretics, Jardiance, valsartan, spironolactone. (3) Ventricular tachycardia: Code(s): I47.20 - Ventricular tachycardia, unspecified Category: Medical Plan: Per [place] records, it seems he was in atrial fibrillation with very rapid rate and then started having QRS widening. Hence not clear if it is just atrial fibrillation or truly VT. Now status post ICD. He has not had any VT on ICD monitoring. (4) Alcohol abuse: Code(s): F10.10 - Alcohol abuse, uncomplicated Category: Social Hx Plan: He is still drinking but has cut back a lot apparently. Ideally, should stopped and we discussed about this today. (5) Morbid obesity: Code(s): E66.01 - Morbid (severe) obesity due to excess calories Category: Medical Plan: He is clearly obese. With regard to diet, less than ideal. He states that he just likes to eat a lot. Unfortunately, there is likely to make his cardi ovascular issues worse and he is aware of it. (6) FARHEEN on CPAP: Code(s): G47.33 - Obstructive sleep apnea (adult) (pediatric); Z99.89 - Dependence on other enabling machines and devices Category: Medical Plan: Continue CPAP. (7) Preoperative cardiovascular examination: Code(s): Z01.810 - Encounter for preprocedural cardiovascular examination Category: Medical Plan: Plans for hip surgery noted. Intermediate cardiac risk. Plan Discussion Notes Regarding weight and lifestyle changes, we focused on the importance of reducing alcohol consumption and controlling weight, given his history of pancreatitis and current comorbidities. Follow-up planning includes induced modifications aligned with his vacation period, and careful tracking of symptoms requiring emergency intervention like chest pressure or palpitations. Consent for the planned intervention emphasized awareness of surgical risks, lifestyle modifications, and complication management. Patient was informed and verbally consented to the use of an ambient scribe for clinic note documentation during this visit. Patient Instructions: - Continue taking metoprolol and valsartan, and review other medications with the pharmacy. - Monitor for any chest pain, pressure, or racing heartbeat and seek emergency care if these occur. - Maintain alcohol moderation and aim to gradually reduce intake. - Follow up with weight management efforts and attempt to reduce weight from current 275 pounds. - Attend scheduled hip replacement surgery as planned and prepare accordingly. - Plan for safe activity levels post-surgery and arrange necessary support for postoperative care. Coding Level of Care Code Est Pt Level 4 (92825) Complex EM visit Add On G2211 Diagnoses PAF (paroxysmal atrial fibrillation) I48.0 NICM (nonischemic cardiomyopathy) I42.8 Ventricular tachycardia I47.20 Alcohol abuse F10.10 Morbid obesity E66.01 FARHEEN on CPAP G47.33; Z99.89 Preoperative cardiovascular examination Z01.810
[2024-11-11 10:10] VITALS: BP 122/68; PULSE 86; BMI 34.4
--- OUTSIDE RECORDS SUMMARY | 2024-11-11 11:45 | XMS_ITS | Referral Summary ---
Author Organization [facility] Address [address] [place] [address] Care Team Providers Care Informatics Specialist Name Role Phone Cecy García Primary Care Provider [phone] Allergies No known active allergies Medications amiodarone [...] to have alisha-duodenal hematoma so transferred to [facility]. With hypotension and lactic acidosis initially improved after 2 units of PRBCs. CTA at [facility] showed large hematoma involving the second and [...] to have alisha-duodenal hematoma so transferred to [facility]. With hypotension and lactic acidosis [...] PM EDT): Patient had prior admission to [facility] in February of last year where he [...] During his admission in February 2023 at [place] he had alcohol withdrawal through day 5 [...] PM EDT): Status post 2 cardioversions at [place]. Continue with Eliquis. Continue with amiodarone for [...] elevation and prior normal colonoscopy reported at [facility] 8 years ago warranting return for [...] in place. Patient had prior admission to [place] [facility] in February of last year where he [...] Rectal polyp Medical Devices Implanted Type Area Welder Gas Tungsten Arc Device Identifier Shelf Expiration Date Model / Serial / Lot Soft 4x30 Embold - [id number] Implanted:Qty: 1 on 10/15/2023 at [facility] Implant [employer] [id number] 05/23/2026 [id number] / / [id number] Soft 4x30 Embold - [id number] Implanted:Qty: 1 on 10/15/2023 by Jeffrey Srivastava MD at [facility] Implant [employer] [id number] 03/08/2024 [id number] / / [id number] Soft 5x30 Embold - [id number] Implanted:Qty: 1 on 10/15/2023 by Jeffrey Srivastava MD at [facility] Implant [facility] [id number] / / Coil Embolization Fibered Detachable Us 5x15 Embold - [id number] Implanted:Qty: 1 on 10/15/2023 by Jeffrey Srivastava MD at [facility] Implant [facility] [id number] / / Device Closure Vascular Plug 6fr Angio-Seal Vip - [id number] Implanted:Qty: 1 on 10/15/2023 by Jeffrey Srivastava MD at [facility] Implant Right: Groin [employer] [id number] 06/18/2024 [id number] / / [id number] Procedures * Due to [employer] law, this organization might not be sharing negative HIV tests. Procedure Name Priority Date/Time Associated Diagnosis Comments COMPREHENSIVE METABOLIC PANEL Routine 01/10/2024 5:49 AM EDT COLONOSCOPY 01/09/2024 from Last 3 Months or Most Recently Relevant to Health Maintenance Results * Due to [employer] law, this organization might not be sharing negative HIV tests. * (ABNORMAL) Comprehensive metabolic panel (01/10/2024 5:49 AM EDT) NA 139 135 - 145 mmol/L 01/10/2024 8:46 AM EDT [facility] K 3.4(L) 3.5 - 5.3 mmol/L 01/10/2024 8:46 AM EDT [facility] Cl 103 98 - 107 mmol/L 01/10/2024 8:46 AM EDT [facility] CO2 26 24 - 32 mmol/L 01/10/2024 8:46 AM EDT [facility] [employer] Anion Gap 10 5 - 15 01/10/2024 8:46 AM EDT [facility] Glucose 89 65 - 99 mg/dL 01/10/2024 8:46 AM EDT [facility] Creatinine 0.86 0.60 - 1.30 mg/dL 01/10/2024 8:46 AM EDT [facility] Calcium 8.5(L) 8.6 - 10.5 mg/dL 01/10/2024 8:46 AM EDT [facility] Total Protein 5.8(L) 6.0 - 8.0 g/dL 01/10/2024 8:46 AM EDT [facility] Albumin 3.4(L) 3.5 - 5.2 g/dL 01/10/2024 8:46 AM EDT [facility] Bilirubin, Total 0.4 0.2 - 1.2 mg/dL 01/10/2024 8:46 AM EDT [facility] Alkaline Phosphatase 65 35 - 129 U/L 01/10/2024 8:46 AM EDT [facility] AST 14 10 - 40 U/L 01/10/2024 8:46 AM EDT [facility] ALT 13 10 - 40 U/L 01/10/2024 8:46 AM EDT [facility] BUN 7 7 - 23 mg/dL 01/10/2024 8:46 AM EDT [facility] eGFR >90 >=60 mL/min/1. 73m2 01/10/2024 8:46 AM EDT [facility] Comment:The estimated glomer ular [...] - 4.2 g/dL 01/10/2024 8:46 AM EDT [facility] A/G Ratio 1.4(L) 1.5 - 3.0 01/10/2024 8:46 AM EDT [facility] [employer] Blood Structure of peripheral vein / Unknown Venipuncture / Unknown 01/10/2024 5:49 AM EDT 01/10/2024 7:58 AM EDT us Arturo Perez MD LAB BLOOD ORDERABLES Final Result [facility] [employer] [address] [place] [address], [place] * COLONOSCOPY (01/09/2024) Narrative Procedure Note Leah Correa MD - 01/09/2024 10:13 AM EDT [facility] Gastro[facility] Patient Name: Nitesh Osorio Procedure Date: 01/09/2024 10:13 AM Date of : 1965 Admit Type: Inpatient Age: 58 [facility] Gender: Male Note Status: Finalized Attending [...] Most Recently Relevant to Health Maintenance Insurance [facility] [place] [id number] Advance Directives Documents on File Type Date Recorded Patient Active Directory Administrator Expl [facility] Health Care Proxy 10/17/2023 9:51 AM 2020 [...] ( Fabian ) Devon Sister [facility]ate [facility] Care Agent Care Teams Informatics Specialist Relationship Specialty Start Date End Date Cecy García PCP - General Internal Medicine 10/27/23
--- OUTSIDE RECORDS SUMMARY | 2024-11-11 11:45 | XMS_ITS | Encounter Summary ---
Author Organization [facility] Address [address] [place] [address] Care Team Providers Care Whipper Name Role Phone Unavailable Primary Care Provider Unavailabl e Reason for Visit * Reason Comments Medication Refill Encounter Details Date Type Department Care Team (Late st Contact Info) Description 04/14/2024 Refill [facility] [place] 194 [facility], [address], [place] [phone] Santi Mirza MD 194 [facility] [place] [address] Medication Refill Social History Tobacco Use [...]
--- OUTSIDE RECORDS SUMMARY | 2024-11-11 11:45 | XMS_ITS | Encounter Summary ---
Author Organization [facility] Address [address] [place] [address] Care Team Providers Care Retail Reset Merchandiser Name Role Phone Cecy García MD Primary Care Provider [phone] Reason for Visit * Reason Onset Date Comments Medication 03/08/2023 Encounter Details Date Type Department Care Team Description 03/08/2023 Telephone Adult [address] [phone] Cecy García MD [address] [place] [phone] Medication Social History Tobacco Use Types Packs/Day [...] on filedocumented in this encounter Care Teams Retail Reset Merchandiser Relationship Specialty Start Date End Date Cecy García MD [address] [place] [phone] PCP - General Internal Medicine 10/30/17 documented as of this encounter
--- OUTSIDE RECORDS SUMMARY | 2024-11-11 11:45 | XMS_ITS | Encounter Summary ---
Author Organization [facility] Address [address] [place] [address] Care Team Providers Care Cat Operator Name Role Phone Unavailable Primary Care Provider Unavailabl e Reason for Visit * Reason Comments Med Change Request Encounter Details Date Type Department Care Team (Late st Contact Info) Description 03/23/2023 Refill [facility] [place] [address] [facility], [address], [place] [phone] Santi Mirza MD [address] [facility] [address] [place] [address] Med Change Request Social History Tobacco [...] your living situation today? I have a [facility] place to live 02/20/2023 Interpersonal Safety [...]
--- OUTSIDE RECORDS SUMMARY | 2024-11-11 11:45 | XMS_ITS | Encounter Summary ---
Author Organization [facility] Address [address] [place] [address] Care Team Providers Care Ground Crewman Mission Support Name Role Phone Cecy García MD Primary Care Provider [phone] Encounter Details Date Type Department Care Team Description 11/21/2018 Orders Only Medical Records [address] [place] [phone] Shanthi Norris MD [address] [place] [address] Social History Tobacco Use Types Packs/Day Years Used Date Smoking Tobacco: Never Smokeless Tobacco: Never Sex Assigned at Date Recorded Not on file documented as of this encounter Plan of Treatment Not on file documented as of this encounter Procedures Procedure Name Priority Date/Time Associated Diagnosis Comments OUTSIDE PATHOLOGY Routine 11/19/2018 documented in this encounter Results * OUTSIDE PATHOLOGY (11/19/2018) Shanthi Norris MD OUTSIDE LAB documented in this encounter Visit Diagnoses Not on filedocumented in this encounter Care Teams Ground Crewman Mission Support Relationship Specialty Start Date End Date Cecy García MD [address] [place] [address] PCP - General Internal Medicine 10/30/17 documented as of this encounter
--- OUTSIDE RECORDS SUMMARY | 2024-11-11 11:45 | XMS_ITS | Clinical Summary ---
Author Organization [facility] [address] [facility] Address [address] [place] [address] Phone Care Team Providers Care Physician Assistant Certified Name Role Phone Unavailable Primary Care Provider [...] Ventricular tachycardia 02/19/2023 Atrial fibrillation, unspecified type 02/19/2023 Social History Tobacco Use Types Packs/Day [...] your living situation today? I have a [facility] to live 02/20/2023 Interpersonal Safety Answer [...] HIV screening 1980 Hepatitis C screening 1985 Pneumococcal Vaccine (50+ years) (1 of 2 - PCV) 1986 Tetanus adult (Td q 10,TDAP once) 1987 Lipid disorder screening 2007 Colon cancer screening, Colonoscopy 2012 Shingles vaccine (Shingrix) (1 of 2 - Shingrix (RZV) 2 Dose Standard Series) 2017 Covid-19 vaccine series ( - 2023- season) 2024 Influenza vaccine 03/17/2025 Diabetes screening 02/21/2026 02/21/2023, 0 02/20/2023, 02/19/2023, Additional history exists RSV Immunization (1 - 1-dose 75+ series) 2042 Meningococcal Vaccine Aged Out No socorro mick eligible based on patient's age to complete this topic Pneumococcal Vaccine (2 - 49 years) Aged Out No longer eligible based on patient's age to complete this topic Medical Devices Implanted Type Area Broom Worker Device Identifier Shelf Expiration Date Model / Serial / Lot Lead Sprint Quattro [id number] - [id number] Implanted:Qty: 1 on 02/21/2023 by Justus Beyer MD at [facility] [address] Implant Right: VENTRICLE MEDTRONIC 11/24/2024 [id number] / [id number] V / [id number] V Envelope Absorbable Antibacterial [id number] - [id number] Implanted:Qty: 1 on 02/21/2023 by Justus Beyer MD at [facility] [address] Implant Left: Chest Wall MEDTRONIC 11/26/2023 [id number] / / [id number] Icd [place] Mri Vr Single Df4 - [id number] Implanted:Qty: 1 on 02/21/2023 by Justus Beyer MD at [facility] [address] Implant Left: Chest [employer]TRONIC 07/13/2024 [id number] / [id number] / [id number] S Procedures Procedure Name Priority Date/Time Associated Diagnosis Comments BASIC METABOLIC PANEL Routine 02/21/2023 6:10 AM EDT from Last 3 Months or Most Recently Relevant to Health Maintenance Results * Basic metabolic panel (02/21/2023 6:10 AM EDT) [facility] Glucose 79 65 - 110 mg/dL 02/21/2023 6:50 AM EDT [facility] Comment: Non-fasting: ??65-110 mg/dL Fasting (minimum 6 hrs): ??65-99 mg/dL BUN 10 7 - 18 mg/dL 02/21/2023 6:50 AM EDT [facility] Creatinine 0.89 0.70 - 1.30 mg/dL 02/21/2023 6:50 AM EDT [facility] Sodium 138 136 - 145 mmol/L 02/21/2023 6:50 AM EDT [facility] Potassium 4.2 3.5 - 5.1 mmol/L 02/21/2023 6:50 AM EDT [facility] Comment:Specimen slightly he molyzed. Chloride 104 98 - 107 mmol/L 02/21/2023 6:50 AM EDT [facility] CO2 27 21 - 32 mmol/L 02/21/2023 6:50 AM EDT [facility] Anion Gap 7 5 - 15 mmol/L 02/21/2023 6:50 AM T [facility] Calcium 9.4 8.5 - 10.1 mg/dL 02/21/2023 6:50 AM T [facility] eGFR (Creatinine) >60 >=60 mL/min/1.7 3m2 02/21/2023 6:50 AM EDT [facility] Comment: Values < 60 mL/min/1.73 m2 may indicate CKD if present for more than three months AND creatinine is at steady state. The eGFR provides a rough estimate of kidney function. On 03/01/22 all [facility] and [facility] began using a [id number]-gekrl formula for estimating GFR called CKD-EPI Creatinine 2020. This equation reports eGFR based on creatinine, patient age, clinical sex, and is standardized to a body surface area of 1.73 m2. For the same creatinine, this new race-free eGFR will be lower than prior reported Black eGFR results and higher than prior Non-Black eGFR results. For further guidance, please refer to the CKD: Adult Cable Maintainer Signature pathway. Blood Venipuncture / Unknown 02/21/2023 6:10 AM EDT 02/21/2023 6:22 AM EDT us Alessandro Og MD LAB BLOOD ORDERABLES Final Result L + M [facility] [address] [place] [address] from Last 3 Months or Most Recently Relevant to Health Maintenance Insurance [facility] Member Subscriber Plan / Payer (Ef fective 2022-Present) Name:Nitesh Osorio Relation to Subscriber:Self Name:Nitesh Osorio Payer ID:[id number] (NAIC) Group ID:Not on file Type:Not on file Address: [address] [id number] MEDICARE [facility] MEDICARE [facility]GD MEDICARE Advance Directives * Full Code (Latest Code Status on File) Date Activated Date Inactivated Comments 02/19/2023 1:39 AM 02/23/2023 7:02 PM
--- OUTSIDE RECORDS SUMMARY | 2024-11-11 11:45 | XMS_ITS | Clinical Summary ---
Author Organization [facility] Address [address] [place] [address] Care Team Providers Care Product Safety Manager Name Role Phone Cecy García Primary Care Provider [phone] Allergies No known active allergies Medications amiodarone [...] after 2 units of PRBCs. CTA at [facility] showed large hematoma involving the second [...] PM EDT): Patient had prior admission to [facility] in February of last year where he [...] During his admission in February 2023 at [facility] he had alcohol withdrawal through day 5 [...] PM EDT): Status post 2 cardioversions at [place]. Continue with Eliquis. Continue with amiodarone for [...] prior normal colonoscopy reported at [facility] 8 years ago warranting return for repeat [...] in place. Patient had prior admission to [facility] in February of last year where he [...] series) 2042 Medical Devices Implanted Type Area Lean Manufacturing Specialist Device Identifier Shelf Expiration Date Model / Serial / Lot Soft 4x30 Embold - [id number] Implanted:Qty: 1 on 10/15/2023 at [facility] Implant [employer]itt[employer]ch [id number] 05/23/2026 [id number] / / [id number] Soft 4x30 Embold - [id number] Implanted:Qty: 1 on 10/15/2023 by Jeffrey Srivastava MD at [facility] Implant [employer] [id number] 03/08/2024 [id number] / / [id number] Soft 5x30 Embold - [id number] Implanted:Qty: 1 on 10/15/2023 by Jeffrey Srivastava MD at [facility] Implant [employer] [id number] / / Coil Embolization Fibered Detachable Us 5x15 Embold - [id number] Implanted:Qty: 1 on 10/15/2023 by Jeffrey Srivastava MD at [facility] Implant [employer] [id number] / / Device Closure Vascular Plug 6fr Angio-Seal Vip - [id number] Implanted:Qty: 1 on 10/15/2023 by Jeffrey Srivastava MD at [facility] Implant Right: Groin [employer] [id number] 06/18/2024 [id number] / / [id number] Procedures * Due to [place] state law, this organization might not be sharing negative HIV tests. Procedure Name Priority Date/Time Associated Diagnosis Comments COMPREHENSIVE METABOLIC PANEL Routine 01/10/2024 5:49 AM EDT COLONOSCOPY 01/09/2024 from Last 3 Months or Most Recently Relevant to Health Maintenance Results * Due to [place] state law, this organization might not be sharing negative HIV tests. * (ABNORMAL) Comprehensive metabolic panel (01/10/2024 5:49 AM EDT) NA 139 135 - 145 mmol/L 01/10/2024 8:46 AM EDT [facility] K 3.4(L) 3.5 - 5.3 mmol/L 01/10/2024 8:46 AM EDT [facility] Cl 103 98 - 107 mmol/L 01/10/2024 8:46 AM EDT [facility] CO2 26 24 - 32 mmol/L 01/10/2024 8:46 AM EDT [facility] Anion Gap 10 5 - 15 01/10/2024 8:46 AM EDT [facility] Glucose 89 65 - 99 mg/dL 01/10/2024 8:46 AM EDT [facility] Creatinine 0.86 0.60 - 1.30 mg/dL 01/10/2024 8:46 AM EDT [facility] Calcium 8.5(L) 8.6 - 10.5 mg/dL 01/10/2024 8:46 AM EDT [facility] Total Protein 5.8(L) 6.0 - 8.0 g/dL 01/10/2024 8:46 AM EDT [facility] Albumin 3.4(L) 3.5 - 5.2 g/dL 01/10/2024 8:46 AM EDT [id number] Bilirubin, Total 0.4 0.2 - 1.2 mg/dL 01/10/2024 8:46 AM EDT [facility] Alkaline Phosphatase 65 35 - 129 U/L 01/10/2024 8:46 AM EDT [facility] AST 14 10 - 40 U/L 01/10/2024 8:46 AM EDT [facility] ALT 13 10 - 40 U/L 01/10/2024 8:46 AM EDT [facility] BUN 7 7 - 23 mg/dL 01/10/2024 8:46 AM EDT [facility] eGFR >90 >=60 mL/min/1. 73m2 01/10/2024 8:46 AM EDT [facility] Comment:The estimated glomer [...] - 4.2 g/dL 01/10/2024 8:46 AM EDT [facility] A/G Ratio 1.4(L) 1.5 - 3.0 01/10/2024 8:46 AM EDT [facility] Blood Structure of peripheral vein / Unknown Venipuncture / Unknown 01/10/2024 5:49 AM EDT 01/10/2024 7:58 AM EDT us Arturo Perez MD LAB BLOOD ORDERABLES Final Result [facility] [address] [place] [address], * COLONOSCOPY (01/09/2024) Narrative Procedure Note Leah Correa MD - 01/09/2024 10:13 AM EDT [facility] Gastroenterology Patient Name: Nitesh Osorio Procedure Date: 01/09/2024 10:13 AM Date of : 1965 Admit Type: Inpatient Age: 58 Room: [place] [address] Gender: Male Note Status: Finalized Attending MD: [...] Most Recently Relevant to Health Maintenance Insurance [facility] Advance Directives Documents on File Type Date Recorded Patient Field Cashier Expl anation Health Care Proxy 10/17/2023 9:51 [...] ( Lue ) Devon Sister Alternate H [facility] Care Agent Care Teams Product Safety Manager Relationship Specialty Start Date End Date RaquelCecy PCP - General Internal Medicine 10/27/23
--- OUTSIDE RECORDS SUMMARY | 2024-11-11 11:45 | XMS_ITS | Encounter Summary ---
Author Organization [facility] Address [address] [place] [address] Care Team Providers Care Health Records Technology Teacher Name Role Phone Unavailable Primary Care Provider Unavailabl e Reason for Visit * Reason Comments Medication Refill Encounter Details Date Type Department Care Team (Late st Contact Info) Description 04/14/2023 Refill [facility] [place] [address] [facility], [address], [place] [id number] Santi Mirza MD [address] [facility] [address] [place] [address] Medication Refill Social History Tobacco [...] your living situation today? I have a [facility] place to live 02/20/2023 Interpersonal [...]
--- OUTSIDE RECORDS SUMMARY | 2024-11-11 11:45 | XMS_ITS | Encounter Summary ---
Author Organization [facility] Address [address] [place] [address] Care Team Providers Care Hydrotreater Operator Name Role Phone Cecy García MD Primary Care Provider [phone] Encounter Details Date Type Department Care Team Description 10/05/2021 Carton Maker Report Medical Records [address] [place] [address] Shira Kim MD Social History Tobacco Use [...] on filedocumented in this encounter Care Teams Hydrotreater Operator Relationship Specialty Start Date End Date Cecy García MD [address] [place] [address] PCP - General Internal Medicine 10/30/17 documented as of this encounter
--- OUTSIDE RECORDS SUMMARY | 2024-11-11 11:45 | XMS_ITS | Encounter Summary ---
Author Organization [facility] Address [address] [place] [address] Care Team Providers Care Director Field Services Name Role Phone Cecy García MD Primary Care Provider [phone] Encounter Details Date Type Department Care Team Description 11/13/2017 Transfer Records Medical Records [address] [place] [address] Abstract, Provider Social History Tobacco Use Types Packs/Day Years Used Date Smoking Tobacco: Never Smokeless Tobacco: Never Sex Assigned at Date Recorded Not on file documented as of this encounter Plan of Treatment Not on file documented as of this encounter Visit Diagnoses Not on filedocumented in this encounter Care Teams Director Field Services Relationship Specialty Start Date End Date Cecy García MD [address] [place] [id number] PCP - General Internal Medicine 10/30/17 documented as of this encounter
--- OUTSIDE RECORDS SUMMARY | 2024-11-11 11:45 | XMS_ITS | Encounter Summary ---
Author Organization [facility] Address [address] [place] [address] Care Team Providers Care Rubber Grinder Name Role Phone Cecy García MD Primary Care Provider [phone] Reason for Visit * Reason Onset Date Comments Testing 08/16/2019 Encounter Details Date Type Department Care Team Description 08/16/2019 Telephone Radiology - [address] [id number] Cecy García MD [address] [place] [id number] Testing Social History Tobacco Use Types Packs/Day Years Used Date Smoking Tobacco: Never Smokeless Tobacco: Never Alcohol Use Standard Drinks/Week Comments Yes 0 (1 standard drink = 0.6 oz pur e alcohol) 24 beers a wk Sex Assigned at Date Recorded Not on file documented as of this encounter Miscellaneous Notes * Telephone Encounter - Marlys Sharma - 08/16/2019 9:53 AM EST FYI:Nitesh Osorio was scheduled for a EXTRACRANIAL ARTERIES STUDY ; however Nitesh Osoiro did not show for his appointment. We have made several attempts by telephone as well as sent a letter to reschedule the appointment and were unsuccessful Therefore we are removing the test from our Scheduled Orders Report. Please note that this test must be reordered if required in the future. documented in this encounter Plan of Treatment Not on file documented as of this encounter Visit Diagnoses Not on filedocumented in this encounter Care Teams Rubber Grinder Relationship Specialty Start Date End Date Cecy García MD [address] [place] [id number] PCP - General Internal Medicine 10/30/17 documented as of this encounter
--- OUTSIDE RECORDS SUMMARY | 2024-11-11 11:45 | XMS_ITS | Encounter Summary ---
Author Organization [facility] Address [address] [place] [address] Care Team Providers Care Clip On Sunglasses Assembler Name Role Phone Unavailable Primary Care Provider Unavailabl e Encounter Details Date Type Department Care Team (Late st Contact Info) Description 03/22/2023 Scanned Document [facility] [place] [address] [facility], [address], [place] [address] Provider, Historical . Social History Tobacco Use [...] your living situation today? I have a [facility] place to live 02/20/2023 Interpersonal Safety [...]
--- OUTSIDE RECORDS SUMMARY | 2024-11-11 11:45 | XMS_ITS | Clinical Summary ---
Author Organization [facility] Address [address] [place] [address] Care Team Providers Care Aerial Lineman Name Role Phone Cecy García MD Primary Care Provider [phone] Active Problems Problem Noted Date Diagnosed Date [...] Hepatitis C Screening (10/15/2023) Pathologist [facility] Hepatitis C Screening abstracted Historical Provider HEALTH MAINTENANCE Final Result * (ABNORMAL) Lipid panel (03/13/2019) [facility] LDL/HDL Ratio 3 0 - 4 Triglycerides 54 0 - 150 mg/dL Cholesterol 189 0 - 200 mg/dL HDL 57 >=40 mg/dL LDL Cholesterol 122(A) 0 - 100 mg/dL Blood Venous blood specimen / Unknown Historical Provider LAB BLOOD ORDERABLES Lore l Result * Colonoscopy (11/19/2018) Pathologist [facility] Colonoscopy normal, abstracted Anatomical Region Laterality Modality Other Historical Provider HEALTH MAINTENANCE Final Result from Last 3 Months or Most Recently Relevant to Health Maintenance Care Teams Aerial Lineman Relationship Specialty Start Date End Date Cecy García MD [address] [place] [address] PCP - General Internal Medicine 10/30/17
--- OUTSIDE RECORDS SUMMARY | 2024-11-11 11:45 | XMS_ITS | Encounter Summary ---
Author Organization [facility] Address [address] [place] [address] Care Team Providers Care Sales Ledger Clerk Name Role Phone Cecy García MD Primary Care Provider [phone] Encounter Details Date Type Department Care Team Description 08/27/2019 Release of Information Medical Records [address] [place] [address] Abstract, Provider Social History Tobacco Use Types [...] on filedocumented in this encounter Care Teams Sales Ledger Clerk Relationship Specialty Start Date End Date Cecy García MD [address] [place] [address] PCP - General Internal Medicine 10/30/17 documented as of this encounter
== END 2024-11-11 10:32 | disposition home or self-care (01) ==
LOC: HO.HCS 10:08
PROVIDERS: Visit Provider Internal Medicine
DX: I48.0 Paroxysmal atrial fibrillation (principal); I42.8 Other cardiomyopathies; I47.20 Ventricular tachycardia, unspecified; F10.10 Alcohol abuse, uncomplicated; E66.01 Morbid (severe) obesity due to excess calories; G47.33 Obstructive sleep apnea (adult) (pediatric); Z99.89 Dependence on other enabling machines and devices; Z01.810 Encounter for preprocedural cardiovascular examination
CPT/HCPCS: 99214; G2211

== ENCOUNTER → 2024-11-11 10:08 | Outpatient (BNVA) | payer MEDICARE, MEDICAID, SELFPAY | PROVIDERS: Visit Provider Internal Medicine | DX: Z01.810 Encounter for preprocedural cardiovascular examination (principal); I48.0 Paroxysmal atrial fibrillation; I42.8 Other cardiomyopathies; I47.20 Ventricular tachycardia, unspecified; E66.01 Morbid (severe) obesity due to excess calories; F10.10 Alcohol abuse, uncomplicated; G47.33 Obstructive sleep apnea (adult) (pediatric); Z99.89 Dependence on other enabling machines and devices; Z68.34 Body mass index [BMI] 34.0-34.9, adult | CPT/HCPCS: 99212 ==

== ENCOUNTER → 2024-11-13 23:59 | Outpatient (BNV) | payer MEDICARE, MEDICAID, SELFPAY ==
--- NOTE | 2024-11-21 20:49 | A.OFFVIS_ITS ---
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 Allergies No Known Allergies Allergy (Verified 10/17/24 10:48) [facility] Medical History (Updated 11/11/24 @ 11:26 by Fabricio Chaudhary MD) Acute pancreatitis Pancreatic pseudocyst Acute heart failure with preserved ejection fraction (HFpEF) Anemia Acute exacerbation of CHF (congestive heart failure) Morbid obesity Gastrointestinal bleeding History of cardioversion FARHEEN on CPAP Alcohol abuse HTN (hypertension) (HFpEF) heart failure with preserved ejection fraction Surgical History (Updated 10/17/24 @ 10:49 by Myrna Sears CMA) History of left hip replacement History of cardiac radiofrequency ablation History of esophagogastroduodenoscopy (EGD) Hx of colonoscopy Status post ORIF of fracture of ankle Family History Mother HTN (hypertension) Diabetes mellitus Father Diabetes mellitus HTN (hypertension) Maternal Uncle Colon cancer Social History Household Members: Significant Other Household Members Other:: GF, daughter Housing: Apartment Are you a primary critical care unit manager to a significant other at home: No Do you presently have visiting nurse or other home services: No Alcohol intake: former Comment: pt refusing high falls measures exc socks Patient Tobacco Use Status: Never used Tobacco e-Cigarette/Vaping Use: Never Used Second Hand Smoke Exposure: No Substance Use Type: Marijuana Advance Directives Date on File: 01/25/21 service: No Current occupational status: retired Current occupation: rt handed Cognitive needs: No Hearing needs: No Vision needs: No Office Procedures Cardiac Device Check Cardiac Device Check Details: Date of service 11/13/2024; Battery life >12 years; normal lead parameters; no treated VT/VF; normal ICD function. [id number] Cardiac Interrogation, implant defibrillator w/interim Procedure code (CPT) selection complete Assessment & Plan Assessment & Plan (1) ICD (implantable cardioverter-defibrillator) in place: Code(s): Z95.810 - Presence of automatic (implantable) cardiac defibrillator Category: Medical (2) NICM (nonischemic cardiomyopathy): Code(s): I42.8 - Other cardiomyopathies Category: Medical Plan x Coding Level of Care Code Procedure Only Diagnoses ICD (implantable cardioverter-defibrillator) in place Z95.810 NICM (nonischemic cardiomyopathy) I42.8 CPT Codes Cardiac Device Check - Cardiac Device 13: [id number] Cardiac Interrogation, implant defibrillator w/interim ([id number])
== END ==
PROVIDERS: Visit Provider Internal Medicine
DX: I42.8 Other cardiomyopathies (principal); Z95.810 Presence of automatic (implantable) cardiac defibrillator
CPT/HCPCS: 93295

== ENCOUNTER → 2024-11-13 23:59 | Outpatient (BNV) | payer MEDICARE, MEDICAID, SELFPAY ==
--- NOTE | 2024-11-21 20:47 | A.OFFVIS_ITS ---
Intake Visit Reasons: Remote HF monitoring- Medtronic Allergies No Known Allergies Allergy (Verified 10/17/24 10:48) [facility] Medical History (Updated 11/11/24 @ 11:26 by Fabricio Chaudhary MD) Acute pancreatitis Pancreatic pseudocyst Acute heart failure with preserved ejection fraction (HFpEF) Anemia Acute exacerbation of CHF (congestive heart failure) Morbid obesity Gastrointestinal bleeding History of cardioversion FARHEEN on CPAP Alcohol abuse HTN (hypertension) (HFpEF) heart failure with preserved ejection fraction Surgical History (Updated 10/17/24 @ 10:49 by Myrna Sears CMA) History of left hip replacement History of cardiac radiofrequency ablation History of esophagogastroduodenoscopy (EGD) Hx of colonoscopy Status post ORIF of fracture of ankle Family History Mother HTN (hypertension) Diabetes mellitus Father Diabetes mellitus HTN (hypertension) Maternal Uncle Colon cancer Social History Household Members: Significant Other Household Members Other:: GF, daughter Housing: Apartment Are you a primary nanny caregiver to a significant other at home: No Do you presently have visiting nurse or other home services: No Alcohol intake: former Comment: pt refusing high falls measures exc socks Patient Tobacco Use Status: Never used Tobacco e-Cigarette/Vaping Use: Never Used Second Hand Smoke Exposure: No Substance Use Type: Marijuana Advance Directives Date on File: 01/25/21 service: No Current occupational status: retired Current occupation: rt handed Cognitive needs: No Hearing needs: No Vision needs: No Office Procedures Cardiac Device Check Cardiac Device Check Details: Date of service- 11/13/2024; based on impedance data and physiological variables, there is no evidence of worsening congestive heart failure. [id number] Cardiac Device Interrogation, cardio physiologic monitor Procedure code (CPT) selection complete Assessment & Plan Assessment & Plan (1) ICD (implantable cardioverter-defibrillator) in place: Code(s): Z95.810 - Presence of automatic (implantable) cardiac defibrillator Category: Medical (2) NICM (nonischemic cardiomyopathy): Code(s): I42.8 - Other cardiomyopathies Category: Medical Plan x Coding Level of Care Code Procedure Only Diagnoses ICD (implantable cardioverter-defibrillator) in place Z95.810 NICM (nonischemic cardiomyopathy) I42.8 CPT Codes Cardiac Device Check - Cardiac Device 15: [id number] Cardiac Device Interrogation, cardio physiologic monitor ([id number])
== END ==
PROVIDERS: Visit Provider Internal Medicine
DX: I42.8 Other cardiomyopathies (principal); Z95.810 Presence of automatic (implantable) cardiac defibrillator
CPT/HCPCS: 93297

== ENCOUNTER → 2024-12-14 23:59 | Outpatient (BNV) | payer MEDICARE, MEDICAID, SELFPAY ==
--- NOTE | 2024-12-25 20:53 | A.OFFVIS_ITS ---
Intake Visit Reasons: Remote HF monitoring- [employer] Allergies No Known Allergies Allergy (Verified 12/19/24 08:12) [facility] Medical History (Updated 12/19/24 @ 10:44 by Kerwin Mishra PA-C) Anemia Acute pancreatitis Pancreatic pseudocyst Acute heart failure with preserved ejection fraction (HFpEF) Acute exacerbation of CHF (congestive heart failure) Morbid obesity Gastrointestinal bleeding History of cardioversion FARHEEN on CPAP Alcohol abuse HTN (hypertension) (HFpEF) heart failure with preserved ejection fraction Surgical History History of left hip replacement History of cardiac radiofrequency ablation History of esophagogastroduodenoscopy (EGD) Hx of colonoscopy Status post ORIF of fracture of ankle Family History Mother HTN (hypertension) Diabetes mellitus Father Diabetes mellitus HTN (hypertension) Maternal Uncle Colon cancer Social History Household Members: Significant Other Household Members Other:: GF, daughter Housing: Apartment Are you a primary property caretaker to a significant other at home: No Do you presently have visiting nurse or other home services: No Alcohol intake: former Comment: pt refusing high falls measures exc socks Patient Tobacco Use Status: Never used Tobacco e-Cigarette/Vaping Use: Never Used Second Hand Smoke Exposure: No Substance Use Type: Marijuana Advance Directives Date on File: 01/25/21 service: No Current occupational status: retired Current occupation: rt handed Cognitive needs: No Hearing needs: No Vision needs: No Office Procedures Cardiac Device Check Cardiac Device Check Details: Date of service- 12/14/2024; based on impedance data and physiological variables, there is possible optivol fluid accumulation from 20 november to ongoing. [id number] Cardiac Device Interrogation, cardio physiologic monitor Procedure code (CPT) selection complete Assessment & Plan Assessment & Plan (1) ICD (implantable cardioverter-defibrillator) in place: Code(s): Z95.810 - Presence of automatic (implantable) cardiac defibrillator Category: Medical (2) NICM (nonischemic cardiomyopathy): Code(s): I42.8 - Other cardiomyopathies Category: Medical Plan x Coding Level of Care Code Procedure Only Diagnoses ICD (implantable cardioverter-defibrillator) in place Z95.810 NICM (nonischemic cardiomyopathy) I42.8 CPT Codes Cardiac Device Check - Cardiac Device 15: [id number] Cardiac Device Interrogation, cardio physiologic monitor ([id number])
== END ==
PROVIDERS: Visit Provider Internal Medicine
DX: I42.8 Other cardiomyopathies (principal); Z95.810 Presence of automatic (implantable) cardiac defibrillator
CPT/HCPCS: 93297

== ENCOUNTER 2024-12-19 08:08 | Outpatient (AMB) | payer MEDICARE, MEDICAID, SELFPAY ==
[2024-12-19 08:09] VITALS: BP 108/64; PULSE 78; O2SAT 98; BMI 34.0
--- NOTE | 2024-12-19 08:09 | A.OFFVIS_ITS ---
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 He is having difficulty sleeping. Sleep study done back in 2020. Has CPAP([facility]). Patient has defibrillator and has a scheduled hip surgery in february. Accompanied by: Self / Same As Patient Allergies No Known Allergies Allergy (Verified 12/19/24 08:12) HPI Comments Details: 59 y/o male with CHF and pacemaker in situ, presents for evaluation of FARHEEN. Home sleep study was done on 03/05/21 AHI 37/hr O2 disha 79%, cpap started at [id number]. FARHEEN Compliance report 09/2024 - 12/2024 63/90 day 22% and >4 hours avg. is 2 hours and 49min. Press [id number] leaks median 10.2 with AHI is 7.9/hr. Today he is here for a surgical clearance r. hip replacement 02/25/[address] [facility] with Dr. Roberto. He has a history of bradycardia, pacemaker was placed 01/2023 [place], [place] and is monitored by his building architectural designer. He is using his CPAP regularly as tolerable, he feels fatigued, dehydrated, weak and has anemia with dizziness upon ambulating. Sleeps better when he uses his CPAP machine. Patient education is provided today re: orthostatic hypotension, anemia and oxygen carrying capacitiy of Hgb, as he is not taking an iron supplement and has a h/o of Renita Hernandez Tears. Memory and mood are stable. He denies morning headaches. RLS symptoms, leg movements are better, denies burning, numbness and tingling. R.hip hurts and he limps. Will f/u with compliance with his sleep company after pulse oximetry overnight with oxygen to correct the hypoxemia, as his AHI is still 7.9 today. He denies smoking and alcohol. Labs are pending. [facility] Medical History Acute pancreatitis Pancreatic pseudocyst Acute heart failure with preserved ejection fraction (HFpEF) Anemia Acute exacerbation of CHF (congestive heart failure) Morbid obesity Gastrointestinal bleeding History of cardioversion FARHEEN on CPAP Alcohol abuse HTN (hypertension) (HFpEF) heart failure with preserved ejection fraction Surgical History History of left hip replacement History of cardiac radiofrequency ablation History of esophagogastroduodenoscopy (EGD) Hx of colonoscopy Status post ORIF of fracture of ankle Family History Mother HTN (hypertension) Diabetes mellitus Father Diabetes mellitus HTN (hypertension) Maternal Uncle Colon cancer Social History Household Members: Significant Other Household Members Other:: GF, daughter Housing: Apartment Are you a primary career services assistant to a significant other at home: No Do you presently have visiting nurse or other home services: No Alcohol intake: former Comment: pt refusing high falls measures exc socks Patient Tobacco Use Status: Never used Tobacco e-Cigarette/Vaping Use: Never Used Second Hand Smoke Exposure: No Substance Use Type: Marijuana Advance Directives Date on File: 01/25/21 service: No Current occupational status: retired Current occupation: rt handed Cognitive needs: No Hearing needs: No Vision needs: No Physical Exam Vital Signs: Last Vital Signs Pulse 78 12/19/24 08:09 BP 108/64 12/19/24 08:09 Pulse Ox 98 12/19/24 08:09 Oxygen Delivery Method Room Air 12/19/24 08:09 BMI result Body Mass Index 34.0 Alert Awake oriented to time, place and person Mood - stable Speech- normal Cognition- intact Const Orientation/consciousness: patient oriented x3 HEENT Head: Yes normocephalic and Yes atraumatic Eyes Pupils: Equal, round and reactive pupils present Neuro General: patient oriented x3, gait normal and moves all extremities Cranial nerves: Yes Facial sensation intact/muscles of mastication intact, Yes Equal, round and reactive pupils present, Yes Normal accommodation reflex present, Yes Normal facial strength present, Yes Midline tongue present, Yes Ability to bilaterally rotate head present and Yes Ability to bilaterally elevate shoulders present Gait exam (Neuro): Normal gait present Motor exam (neuro): 5/5 motor strength present throughout and Normal motor muscle tone present throughout Deep tendon reflexes (DTR's): Right triceps reflex intensity grade: 2+, Left triceps reflex intensity grade: 2+, Rt Biceps (C5, C6): 2+, Left biceps reflex intensity grade: 2+, Right brachioradialis reflex intensity grade: 2+, Left brachioradialis reflex intensity grade: 2+, Right patellar reflex intensity grade: 2+, Left patellar reflex intensity grade: 2+, Right ankle reflex intensity grade: 2+ and Left ankle reflex intensity grade: 2+ Results Reviewed Results Reviewed: Home sleep study was done on 03/05/21 AHI 37/hr O2 disha 79%, cpap started at [id number]. FARHEEN Compliance report 09/2024 - 12/2024 63/90 day 22% and >4 hours avg. is 2 hours and 49min. Press [id number] leaks median 10.2 with AHI is 7.9/hr. Labs are pending Assessment & Plan Assessment & Plan (1) FARHEEN (obstructive sleep apnea): Comment: needs overnight pulse oximetry AHI is still 7.9 Code(s): G47.33 - Obstructive sleep apnea (adult) (pediatric) Category: Medical (2) Excessive daytime sleepiness: Code(s): G47.19 - Other hypersomnia Category: Medical (3) Fatigue due to sleep pattern disturbance: Code(s): R53.83 - Other fatigue; G47.9 - Sleep disorder, unspecified Category: Medical Plan FARHEEN pulse oximetry overnight submitted Fatigue due to anemia? start iron 325mg po daily with 1/2 glass of oj. Labs pending r/o deficiencies Orders: Orders Complete Blood Count no Diff Today G47.19 - Other hypersomnia Ferritin Today G47.19 - Other hypersomnia Vitamin D 25-OH Total Today G47.19 - Other hypersomnia Lipid Panel with Reflex Today G47.19 - Other hypersomnia Hemoglobin A1c Today G47.19 - Other hypersomnia Overnight Pulse Oximetry Today G47.19 - Other hypersomnia Comprehensive Met. Panel Today G47.19 - Other hypersomnia IRON PROFILE Today G47.19 - Other hypersomnia, G47.9 - Sleep disorder, unspecified, R53.83 - Other fatigue TSH reflex Free T4 Today G47.19 - Other hypersomnia Vitamin B12 and Folate Today G47.19 - Other hypersomnia Methylmalonic Acid Today G47.19 - Other hypersomnia, G47.9 - Sleep disorder, unspecified, R53.83 - Other fatigue Homocysteine Today G47.19 - Other hypersomnia, G47.9 - Sleep disorder, unspecified, R53.83 - Other fatigue Medications: New melatonin take one 5mg capsule daily at night for fragmented sleep. 5 mg PO DAILY 90 days 90 caps 0RF fragmented sleep MDD 5mg G47.9 - Sleep disorder, unspecified, R53.83 - Other fatigue Patient Instructions: Sleep Hygiene provided: set a scheduled bedtime and wake time to help regulate the circadian rhythm and balance the release of pituitary hormones. Sleep in a dark room, temperatures below 68 degrees, and no devices n bed. Limit caffeinated products 6 hours prior to bed, and limit fluids 2-4 hours prior to bed. Gentle night yoga, diffusing essential oils, and playing soft music can be relaxing. Coding Level of Care Code New Pt Level 4 (29739) Complex EM visit Add On G2211 Diagnoses FARHEEN (obstructive sleep apnea) G47.33 Excessive daytime sleepiness G47.19 Fatigue due to sleep pattern disturbance R53.83; G47.9 Time Spent (min) 30 Comment evaluation
--- OUTSIDE RECORDS SUMMARY | 2024-12-19 08:14 | XMS_ITS | Encounter Summary ---
Author Organization [facility] Health Address [address] [place] [address] Care Team Providers Care Wet Char Conveyor Tender Name Role Phone Unavailable Primary Care Provider Unavailabl e Encounter Details Date Type Department Care Team (Late st Contact Info) Description 03/22/2023 Scanned Document [facility] [place] [address] [facility], [address] [address] Provider, Historical . Social History Tobacco Use [...]
== END 2024-12-19 09:09 | disposition home or self-care (01) ==
LOC: HO.HSMS 08:08
PROVIDERS: Visit Provider Physician Assistant Medical
DX: G47.33 Obstructive sleep apnea (adult) (pediatric) (principal); G47.19 Other hypersomnia; R53.83 Other fatigue; G47.9 Sleep disorder, unspecified
CPT/HCPCS: 99204; G2211

== ENCOUNTER → 2024-12-19 08:08 | Outpatient (BNVA) | payer MEDICARE, MEDICAID, SELFPAY | PROVIDERS: Visit Provider Physician Assistant Medical | DX: G47.33 Obstructive sleep apnea (adult) (pediatric) (principal); G47.19 Other hypersomnia; I50.9 Heart failure, unspecified; R53.83 Other fatigue; Z95.0 Presence of cardiac pacemaker | CPT/HCPCS: 99202 ==

== ENCOUNTER 2024-12-31 10:34 | Outpatient (AMB) | payer MEDICARE, MEDICAID, SELFPAY ==
--- NOTE | 2024-12-31 10:37 | A.OFFPC_ITS ---
Vital Signs 12/31/24 10:38 Height 6 ft 3 in Weight 264 lb BMI 33.0 BP 120/64 Blood Pressure Location Lt brachial Position Sitting Pulse 79 Pulse Source Pulse Oximeter Temp 97.1 F Temp Source Temporal Artery Scan Pulse Oximetry (%) 97 Oxygen Delivery Method Room Air Intake Visit Reasons: R DARIUS w/ Dr. Roberto 02/25/25 Intake Note: Patient is here for a Pre-op for R DARIUS scheduled with Dr Roberto on 02/25/25. Complaint dizzy spells. Cigar Packer And Sorter Required: No Subway Car Repairer: Not Required per policy Accompanied by: Self / Same As Patient Allergies No Known Allergies Allergy (Verified 12/31/24 13:17) Medication List - Last Reconciled 12/31/24 by Liliane Mata PA-C blood pressure monitor (Blood Pressure Kit) As directed celecoxib (Celebrex) 200 mg PO BID empagliflozin (Jardiance) 10 mg PO DAILY ferrous sulfate 325 mg PO DAILY 4 months MDD 325mg [Folding Front Wheeled walker Duration: 99 days] furosemide 40 mg PO DAILY melatonin 5 mg PO DAILY 90 days MDD 5mg metoprolol succinate ER (Toprol XL) 100 mg PO DAILY miscellaneous medical supply (Blood Pressure Cuff) As directed omeprazole 20 mg PO QAM ondansetron 4 mg PO Q8H PRN spironolactone 25 mg See Protocol PO DAILY valsartan 160 mg See Protocol PO BID Tobacco use date assessed: 12/31/24 Dental Screening Dental Screen Date: 08/27/24 HPI R DARIUS w/ Dr. Roberto 02/25/25 HPI Details 59-year-old male with past medical histo ry of hypertension, alcohol use disorder, atrial fibrillation on Eliquis, ICM with pacemaker, heart failure with preserved ejection fraction and history of GI bleed last seen 09/2024 coming in for preoperative exam.? Patient is scheduled to undergo right total hip with Dr. Roberto 02/25/2025.? Patient is also scheduled to have cardiac preoperative clearance 02/17/2025. Atrial fibrillation: Patient is no longer on Eliquis and rate controlled with metoprolol. Hypertension: Blood pressure well controlled 120/64 today. Patient tells us today he has been having lightheadedness and dizziness spells that will happen throughout the day and happen multiple times a day. He was seen by his neurologist for the similar concern and orthostasis was suspected. At that time he was advised to increase his water intake which he has not done. Patient is currently on 2 diuretics and reports poor urine output and poor fluid intake. He states 2 days ago he had an episode of lightheadedness and dizziness in which he briefly lost awareness of his surroundings causing him to drop his belongings as well. Given this new concern his neurologist did order for blood work which has not yet been completed. [facility] Medical History Anemia Acute pancreatitis Pancreatic pseudocyst Acute heart failure with preserved ejection fraction (HFpEF) Acute exacerbation of CHF (congestive heart failure) Morbid obesity Gastrointestinal bleeding History of cardioversion FARHEEN on CPAP Alcohol abuse HTN (hypertension) (HFpEF) heart failure with preserved ejection fraction Surgical History History of left hip replacement History of cardiac radiofrequency ablation History of esophagogastroduodenoscopy (EGD) Hx of colonoscopy Status post ORIF of fracture of ankle Family History Mother HTN (hypertension) Diabetes mellitus Father Diabetes mellitus HTN (hypertension) Maternal Uncle Colon cancer Social History Household Members: Significant Other Household Members Other:: GF, daughter Housing: Apartment Are you a primary post acute care nurse practitioner to a significant other at home: No Do you presently have visiting nurse or other home services: No Alcohol intake: former Comment: pt refusing high falls measures exc socks Patient Tobacco Use Status: Never used Tobacco e-Cigarette/Vaping Use: Never Used Second Hand Smoke Exposure: No Substance Use Type: Marijuana Advance Directives: Yes Advance Directives on File: Yes Advance Directives Date on File: 01/25/21 Do you have a plan to hurt others: No Plan service: No Current occupational status: retired Current occupation: rt handed Cognitive needs: No Hearing needs: No Vision needs: No Questionnaire Thrive Questionnaire Date Thrive assessed: 08/09/24 DIEUDONNE-7 AMB Questionnaire DIEUDONNE-7 Date DIEUDONNE - 7 assessed: 08/27/24 Source: Developed by Drs. Ace Beckwith, Evelyne Ramirez, Carlos Garcia and colleagues, with an educational yaz from [employer]. Review of Systems Const Denies body aches, Denies fatigue, Denies fever(s), Denies frequent falls, Denies headache(s) and Denies weakness Eyes Reports no additional complaints and Denies change in vision ENT Denies dysphagia, Reports dizziness, Denies facial pain, Denies headache(s), Denies nasal congestion and Denies odynophagia Card Denies chest pain, Reports syncope, Denies irregular heart rhythm, Denies leg edema, Reports lightheadedness and Denies dyspnea Resp Denies cough and Denies dyspnea GI Denies constipation, Denies dysphagia, Denies dyspepsia, Denies diarrhea, Denies nausea, Denies odynophagia and Denies vomiting Denies dysuria, Denies urinary frequency, Denies urinary hesitancy and Denies urinary urgency Musc Denies back pain and Denies myalgias Skin/Breast Reports system reviewed and no additional complaints, except as documented Neuro Reports dizziness, Reports syncope, Denies frequent falls, Denies headache(s) and Denies weakness Psych Reports no additional complaints Endo Denies fatigue Physical exam (Primary Care) Vital Signs: Last Vital Signs Temp 97.1 F 12/31/24 10:38 Pulse 79 12/31/24 10:38 BP 120/64 12/31/24 10:38 Pulse Ox 97 12/31/24 10:38 Oxygen Delivery Method Room Air 12/31/24 10:38 BMI result Body Mass Index 33.0 Tobacco/Smoking Status: Tobacco use Status Tobacco use date assessed 12/31/24 12/31/24 10:46 Patient Tobacco Use Status Never used Tobacco 12/31/24 10:46 Tobacco use type 02/28/23 13:31 e-Cigarette/Vaping Use Never Used 12/31/24 10:46 Thrive Assessment: Date of Thrive Assessment Date Thrive assessed 08/09/24 12/31/24 10:46 Const General: cooperative, healthy appearing, comfortable and no acute distress Orientation/consciousness: patient oriented x3 HENMT Head: Yes normocephalic Ears: hearing grossly normal bilaterally General nose exam: Normal external nose present Eyes General: appearance normal, both eyes and all related structures Conjunctivae: conjunctivae normal Neck Neck: Yes full ROM and Yes no lymphadenopathy Resp Effort & Inspection: normal respiratory effort Auscultation: clear to auscultation bilaterally, no crackles, no rales, no rhonchi and no wheezes Cardio Rate: regular rate Rhythm: regular rhythm Skin General skin exam: no rashes or lesions noted Neuro General: patient oriented x3 Cranial nerves: Yes CN's II-XII intact bilaterally Gait exam (Neuro): Normal gait present Extrem General: Yes normal to inspection, Yes full ROM and No edema Psych Affect: normal affect Attitude: cooperative Insight: Good insight present (Psych) Judgement: Good judgement present (Psych) Coding Level of Care Code Est Pt Level 4 (05304) Diagnoses Pre-op evaluation Z01.818 Dizziness R42 Assessment & Plan Assessment & Plan (1) Pre-op evaluation: Code(s): Z01.818 - Encounter for other preprocedural examination Category: Medical Plan: Regarding preop clearance, the patient is at moderate risk for proposed surgery. Reviewed with the patient that no surgery is completely free of risk and that this examination is to assist the surgeon in reviewing informed consent. Given patient's new onset of symptoms over the last several weeks preoperative clearance is being held until further evaluation can be completed to identify underlying cause of dizzy spells and potentially loss of consciousness. (2) Dizziness: Code(s): R42 - Dizziness and giddiness Category: Medical Plan: Patient having lightheadedness and dizziness that is debilitating to the patient and happens 3-4 times per day. He does not identify any inciting events denies any other chest pains or shortness of breath along with these episodes. Blood work has been ordered by his neurologist I advised patient to have this done along with additional blood work I have ordered an EKG. Patient had this completed today. Also advised water intake as I am highly suspicious of orthostasis given the to diuretics and poor fluid intake. Plan This note was constructed using voice recognition software. While every effort has been made to ensure accuracy and projection camera operator, still areas may have been included sometimes these areas may affect the content or meeting of the given symptoms. Total time spent caring for the patient today was 30 minutes. This includes time spent before the visit reviewing the chart, time spent during the visit, and time spent after the visit and documentation. Patient was informed and verbally consented to the use of an ambient scribe for clinic note documentation during this visit. Orders: Orders ECG 12 lead EKG Today R42 - Dizziness and giddiness B Type Natriuretic Peptide Today R42 - Dizziness and giddiness
[2024-12-31 10:38] VITALS: BP 120/64; PULSE 79; TEMP 36.2; O2SAT 97; BMI 33.0
--- OUTSIDE RECORDS SUMMARY | 2024-12-31 12:05 | XMS_ITS | Encounter Summary ---
Author Organization [facility] Address [address] [place] [address] Care Team Providers Care Director Fraud Name Role Phone Unavailable Primary Care Provider Unavailabl e Encounter Details Date Type Department Care Team (Late st Contact Info) Description 03/22/2023 Scanned Document [facility] [place] [address] [facility], [address], [place] [address] Provider, Historical . Social History Tobacco Use [...] your living situation today? I have a [facility] place to live 02/20/2023 Interpersonal Safety [...]
== END 2024-12-31 11:34 | disposition home or self-care (01) ==
LOC: HO.HMCH 10:34
DX: Z01.818 Encounter for other preprocedural examination (principal); R42 Dizziness and giddiness

== ENCOUNTER → 2024-12-31 10:34 | Outpatient (REF) | payer MEDICARE, MEDICAID, SELFPAY ==
--- NOTE | 2024-12-31 11:41 | ECG_ITS ---
Test Reason : DIZZINESS Blood Pressure : */* mmHG Vent. Rate : 70 BPM Atrial Rate : 70 BPM P-R Int : 178 ms QRS Dur : 74 ms QT Int : 372 ms P-R-T Axes : 75 11 42 degrees QTcB Int : 401 ms Normal sinus rhythm Normal ECG When compared with ECG of 02-Aug-2024 15:56, Premature ventricular complexes are no longer Present QT has shortened Referred By: Liliane Mata Electronically Signed By: Tato Delgado
[2024-12-31 12:02] LABS: MANUAL DIFF FLAG NO
[2024-12-31 12:07] LABS: Basophils Absolute Auto 0.1 X10*3/uL (0.0-0.2); Basophils Percent Auto 1.6 % (0-2); Eosinophils Absolute Auto 0.1 X10*3/uL (0.0-0.4); Eosinophils Percent Auto 1.6 % (0-4); Hematocrit 38.2 % (42.0-52.0); Hemoglobin 11.4 g/dl (14.0-18.0); Imm Gran Abs Auto 0.03 X10*3/uL (0.00-0.03); Imm Gran Pct Auto 0.4 % (0.0-0.4); Lymphocytes Absolute Auto 1.6 X10*3/uL (1.2-4.9); Mean Corpuscular HGB Conc 29.8 g/dl (31.0-36.0); Mean Corpuscular Hemoglobin 27.2 pg (27.0-33.0); Mean Corpuscular Volume 91.2 fL (80.0-98.0); Monocytes Absolute Auto 0.5 X10*3/uL (0.1-1.2); Monocytes Percent Auto 7.9 % (2-11); Neutrophils Absolute Auto 4.4 x10*3/uL (2.0-8.3); Neutrophils Percent Auto 65.5 % (45-73); PLT CLUMP 1; Red Blood Count 4.19 X10*6/uL (4.60-5.80); Red Cell Distribution Width 15.6 % (11.0-16.0); SCAN SMEAR FLAG 1
[2024-12-31 12:10] LABS: White Blood Count 6.7 X10*3/uL (4.8-10.8)
[2024-12-31 12:25] LABS: Estimated Average Glucose 111 mg/dL; Hemoglobin A1c % 5.5 % (<6.0)
[2024-12-31 12:27] LABS: Alanine Aminotransferase 10 U/L (0-40); Albumin Level 4.4 g/dL (3.5-5.0); Alkaline Phosphatase 89 U/L (39-117); Anion Gap 12 (12-20); Aspartate Amino Transferase 16 U/L (5-37); Bilirubin Total 0.6 mg/dL (0.0-1.0); Blood Urea Nitrogen 68 mg/dL (9-16); Carbon Dioxide 26 mmol/L (22-29); Chloride 104 mmol/L (96-108); Estimated Glomerular Filt Rate 26; Glucose Random 113 mg/dL (60-115); Iron 135 mcg/dL (45-160); Percent Iron Saturation 37 % (15-50); Potassium 5.4 mmol/L (3.3-5.1); Sodium 137 mmol/L (135-145); Total Iron Binding Capacity 366 mcg/dL (228-428); Total Protein 7.8 g/dL (6.5-8.0); Unsaturated Iron Binding 231 ug/dL
[2024-12-31 12:32] LABS: B Type Natriuretic Peptide 38 pg/mL (<100); Cholesterol 187 mg/dL (<200); HDL Cholesterol 26 mg/dL (>40); LDL Cholesterol Calculated 138 mg/dL (<100); Triglycerides 117 mg/dL (<150)
[2024-12-31 12:48] LABS: Ferritin 142 ng/mL (20-250); TSH reflex Free T4 0.57 uIU/mL (0.32-4.0); Vitamin D 25-OH Total 23.7 ng/mL (>30)
[2024-12-31 13:02] LABS: Folate 7.5 ng/mL (> or = 4.0); Vitamin B12 330 pg/mL (200-900)
[2024-12-31 13:23] LABS: Reflex LDLD? No
[2025-01-01 17:04] LABS: Homocysteine 47.6 umol/L (< or = 15.2)
[2025-01-03 03:19] LABS: Methylmalonic Acid 523 nmol/L (55-335)
== END ==
LOC: HO.CARD 10:34
PROVIDERS: Student in an Organized Health Care Education/Training Program; Absent Provider Physician Assistant Medical
DX: Z01.818 Encounter for other preprocedural examination (principal); Z13.1 Encounter for screening for diabetes mellitus; K92.2 Gastrointestinal hemorrhage, unspecified; R42 Dizziness and giddiness; I10 Essential (primary) hypertension; G47.19 Other hypersomnia; R53.83 Other fatigue; G47.9 Sleep disorder, unspecified
CPT/HCPCS: 36415; 80053; 80061; 82306; 82607; 82728; 82746; 83036; 83090; 83540; 83880; 83921; 84443; 85025; 85027; 93005; 99212

== ENCOUNTER 2024-12-31 13:01 | Inpatient (IN) | payer MEDICARE, MEDICAID, SELFPAY ==
[2024-12-31 13:12] VITALS: BP 103/64; PULSE 79; RESP 16; TEMP 36.4; O2SAT 96; BMI 33.4
--- NOTE | 2024-12-31 13:15 | ED.GENADULT ---
HPI - General Adult General Chief complaint: General Medical Stated complaint: dehydration Time Seen by Provider: 12/31/24 13:51 History of Present Illness HPI narrative: Patient is a 59-year-old male presents today with generalized malaise weakness. Has a history of abnormal kidney function. No fever no chills. No vomiting. Patient has been having decreased p.o. intake. Has a previous history of cardiomyopathy. Has a history of previous V-tach. Status post AICD placement. Currently not on any blood thinners. Had labs drawn on an outpatient basis that show elevated BUN and creatinine sent in for further evaluation. History of V-tach in the past. History of paroxysmal AFib hypertension history of congestive heart failure with preserved EF. History of sleep apnea on CPAP. Normally being followed by Dr. Chaudhary for his heart issues. Related Data Home Medications ?Medication ?Instructions ?Recorded ?Confirmed celecoxib 200 mg capsule (Celebrex) 200 mg PO BID PRN Pain 12/31/24 12/31/24 lisinopril 20 mg tablet 20 mg PO DAILY 12/31/24 12/31/24 melatonin 5 mg capsule 5 mg PO BEDTIME PRN insomnia 12/31/24 12/31/24 omeprazole 20 mg capsule,delayed 20 mg PO DAILY@0630 12/31/24 12/31/24 release Previous Rx's ?Medication ?Instructions ?Recorded blood pressure monitor (Blood #1 ea 04/25/23 Pressure Kit) miscellaneous medical supply #1 ea 03/06/24 (Blood Pressure Cuff) furosemide 40 mg tablet 40 mg PO DAILY #30 tabs 08/14/24 spironolactone 25 mg tablet 25 mg PO DAILY #90 tabs 08/14/24 empagliflozin 10 mg tablet 10 mg PO DAILY #90 tabs 08/19/24 (Jardiance) valsartan 160 mg tablet 160 mg PO BID #180 tabs 08/22/24 metoprolol succinate 100 mg 100 mg PO DAILY #90 tabs 11/21/24 tablet,extended release 24 hr (Toprol XL) Folding Front Wheeled walker #1 ea 12/24/24 Allergies Allergy/AdvReac Type Severity Reaction Status Date / Time No Known Allergies Allergy Verified 12/31/24 13:17 Review of Systems Review of Systems: Positive generalized malaise weakness Yes all other systems are reviewed and are negative [facility] Past Medical History Attestation statement: The following information was validated with the patient. Medical History Anemia Acute pancreatitis Pancreatic pseudocyst Acute heart failure with preserved ejection fraction (HFpEF) Acute exacerbation of CHF (congestive heart failure) Morbid obesity Gastrointestinal bleeding History of cardioversion FARHEEN on CPAP Alcohol abuse HTN (hypertension) (HFpEF) heart failure with preserved ejection fraction Surgical History History of left hip replacement History of cardiac radiofrequency ablation History of esophagogastroduodenoscopy (EGD) Hx of colonoscopy Status post ORIF of fracture of ankle Family History Family History Mother HTN (hypertension) Diabetes mellitus Father Diabetes mellitus HTN (hypertension) Maternal Uncle Colon cancer Social History Social History Household Members: Significant Other Household Members Other:: GF, daughter Housing: Apartment Are you a primary residential care officer to a significant other at home: No Do you presently have visiting nurse or other home services: No Alcohol intake: former Comment: pt refusing high falls measures exc socks Patient Tobacco Use Status: Never used Tobacco e-Cigarette/Vaping Use: Never Used Second Hand Smoke Exposure: No Substance Use Type: Marijuana Advance Directives: Yes Advance Directives on File: Yes Advance Directives Date on File: 01/25/21 Do you have a plan to hurt others: No Plan service: No Current occupational status: retired Current occupation: rt handed Cognitive needs: No Hearing needs: No Vision needs: No Physical Exam ED Vital Signs: Vital Signs - 24 hr 12/31/24 13:12 Temperature 97.6 F Pulse Rate 79 Respiratory Rate 16 Blood Pressure 103/64 Pulse Oximetry 96 Oxygen Delivery Method Room Air BMI result Body Mass Index 33.4 Appearance: Alert. Oriented X3. No acute distress. Eyes: Pupils equal, round and reactive to light. ENT: Pharynx normal. Neck: Normal inspection. Neck supple. No lymph nodes noted. No crepitus CVS: Normal heart rate and rhythm. Pulses normal. Normal S1 and S2 Respiratory: No respiratory distress. Breath sounds normal. No Wheezing. No rales Abdomen: Soft and nontender. No rigidity. No distention. good BS x4 Skin: Skin warm and dry. Normal skin color. Normal skin turgor. Extremities: No lower extremity edema. Neurovascular intact to all extremities. No Lacerations. No Rash Neuro: Oriented X 3. No motor deficit. No sensory deficit. Moving all extermities. No slurred speech Course Course Course Narrative: RME, this is a rapid medical exam performed by Hiren Galvan please refer to primary provider for complete H&P- 59-year-old male presents for evaluation of dehydration. He saw his primary doctor today for routine labs but has been complaining of lightheadedness. His creatinine is elevated to 2.55 in his potassium is 5.4 on labs from 1 hour ago. Plan for urinalysis and for the evaluation. Medications Administered Generic Name Dose Route Start Last Admin Trade Name Freq PRN Reason Stop Dose Admin Lactated Ringer's 1,000 mls @ 150 mls/hr 12/31/24 15:15 12/31/24 16:41 Lr IVCONT 150 mls/hr .Q6H40M TIGIST Administration Sodium Chloride 3 ml 12/31/24 16:00 12/31/24 15:54 0.9 % Sodium Chloride Flush 3 Ml Syringe IVFLUSH 3 ml QSHIFT TIGIST Administration Discontinued Medications Generic Name Dose Route Start Last Admin Trade Name Freq PRN Reason Stop Dose Admin Sodium Chloride 500 mls @ 999 mls/hr 12/31/24 14:30 12/31/24 15:54 Ns IV 12/31/24 15:00 999 mls/hr .Q31M TIGIST Administration Medical Decision Making Medical Decision Making [facility] Narrative: Patient's labs showed an elevated BUN and creatinine that is new. Question secondary to pre renal insufficiency as patient had decreased p.o. intake. There is no chest pain there is no diaphoresis there is no fever my interpretation of patient's EKG showed a sinus rhythm heart rate is 60 [place] QRS QTC normal no acute ST segment elevation. Patient is pacemaker/AICD was interrogated. There is no episodes of firing. There is no S episode of V-tach. Patient denies drinking alcohol. Labs were repeated. Will admit for further evaluation of the acute renal insufficiency. Differential Diagnosis Differential Diagnoses: The differential diagnosis associated with the presentation includes Dehydration prerenal versus renal vs post renal Admission/Observation Consideration of admission/observation: Escalation of care including admission/observation considered Consult Healthcare Provider Management of the patient was discussed with: Hospitalist Lab Data MDM Lab Attestation statement: I reviewed the patient's lab results. 12/31/24 14:42 12/31/24 14:42 Labs: Lab Results 12/31/24 Range/Units 14:42 WBC 6.5 (4.8-10.8) X10*3/uL RBC 4.06 L (4.60-5.80) X10*6/uL Hgb 11.1 L (14.0-18.0) g/dl Hct 35.4 L (42.0-52.0) % MCV 87.2 (80.0-98.0) fL MCH 27.3 (27.0-33.0) pg MCHC 31.4 (31.0-36.0) g/dl RDW 15.3 (11.0-16.0) % Plt Count 267 (160-400) X10*3/uL MPV 10.8 (9.4-12.4) fL Immature Gran % (Auto) 0.5 H (0.0-0.4) % Neut % (Auto) 63.5 (45-73) % Lymph % (Auto) 24.9 (20-40) % [place] % (Auto) 8.6 (2-11) % Eos % (Auto) 1.4 (0-4) % Baso % (Auto) 1.1 (0-2) % Lymph # (Auto) 1.6 (1.2-4.9) X10*3/uL [place] # (Auto) 0.6 (0.1-1.2) X10*3/uL Eos # (Auto) 0.1 (0.0-0.4) X10*3/uL Baso # (Auto) 0.1 (0.0-0.2) X10*3/uL Abs Immat Gran (auto) 0.03 (0.00-0.03) X10*3/uL Absolute Neuts (auto) 4.2 (2.0-8.3) x10*3/uL Absolute Nucleated RBC 0.000 (0.0-0.012) X10*3/uL Nucleated RBC % (auto) 0.0 (0.0-0.2) /100WBC Sodium 137 (135-145) mmol/L Potassium 5.9 H (3.3-5.1) mmol/L Chloride 105 (96-108) mmol/L Carbon Dioxide 24 (22-29) mmol/L Anion Gap 14 (12-20) BUN 63 H (9-16) mg/dL Creatinine 2.30 H (0.5-1.4) mg/dL Estim Creat Clear Calc 49.6 Estimated GFR 29 Random Glucose 109 (60-115) mg/dL Calcium 10.0 (8.4-10.2) mg/dL Magnesium 2.2 (1.6-2.6) mg/dL Total Bilirubin 0.5 (0.0-1.0) mg/dL Direct Bilirubin 0.2 (0.0-0.5) mg/dL AST 21 (5-37) U/L ALT 8 (0-40) U/L Alkaline Phosphatase 81 (39-117) U/L Total Protein 7.5 (6.5-8.0) g/dL Albumin 4.1 (3.5-5.0) g/dL Ethyl Alcohol < 10 mg/dL Independent Interpretation I performed an independent interpretation of an: EKG (Sinus heart rate is 70 [place] QRS QTC normal no acute ST segment elevation noted) Radiology Impression Discussion of test interpretation with radiology: I have reviewed the radiologist's reading. External Record Review External record reviewed: Inpatient record Social Determinants Patient?s care significantly limited by Social Determinants of Health including: Problems related to primary support group Discharge Plan Discharge Clinical Impression: (HFpEF) heart failure with preserved ejection fraction, HTN (hypertension), PAF (paroxysmal atrial fibrillation), Ventricular tachycardia, Acute renal failure Patient Disposition: Admitted As Inpatient
--- NOTE | 2024-12-31 14:22 | ECG_ITS ---
Test Reason : CHEST PAIN Blood Pressure : */* mmHG Vent. Rate : 65 BPM Atrial Rate : 65 BPM P-R Int : 196 ms QRS Dur : 74 ms QT Int : 374 ms P-R-T Axes : 62 -4 25 degrees QTcB Int : 388 ms Normal sinus rhythm Normal ECG When compared with ECG of 31-Dec-2024 11:47, No significant change was found Referred By: Sindhu Begum Electronically Signed By: Tato Delgado
[2024-12-31 14:48] LABS: MANUAL DIFF FLAG NO
[2024-12-31 14:52] LABS: Basophils Absolute Auto 0.1 X10*3/uL (0.0-0.2); Basophils Percent Auto 1.1 % (0-2); Eosinophils Absolute Auto 0.1 X10*3/uL (0.0-0.4); Eosinophils Percent Auto 1.4 % (0-4); Hematocrit 35.4 % (42.0-52.0); Hemoglobin 11.1 g/dl (14.0-18.0); Imm Gran Abs Auto 0.03 X10*3/uL (0.00-0.03); Imm Gran Pct Auto 0.5 % (0.0-0.4); Lymphocytes Absolute Auto 1.6 X10*3/uL (1.2-4.9); Lymphocytes Percent Auto 24.9 % (20-40); Mean Corpuscular HGB Conc 31.4 g/dl (31.0-36.0); Mean Corpuscular Hemoglobin 27.3 pg (27.0-33.0); Mean Corpuscular Volume 87.2 fL (80.0-98.0); Mean Platelet Volume 10.8 fL (9.4-12.4); Monocytes Absolute Auto 0.6 X10*3/uL (0.1-1.2); Monocytes Percent Auto 8.6 % (2-11); Neutrophils Absolute Auto 4.2 x10*3/uL (2.0-8.3); Neutrophils Percent Auto 63.5 % (45-73); Platelet Count 267 X10*3/uL (160-400); Red Blood Count 4.06 X10*6/uL (4.60-5.80); Red Cell Distribution Width 15.3 % (11.0-16.0); White Blood Count 6.5 X10*3/uL (4.8-10.8)
--- NOTE | 2024-12-31 15:03 | P.HPHOSP_ITS ---
History of Present Illness Date of Service: 12/31/24 Chief Complaint: SAUL 59-year-old male with a PMH significant for?paroxysmal AFib previously on Eliquis, HTN, HFpEF, hx of V-tach s/p ICD in place, HTN (takes Toprolol xl100 mg/d, aldactone 25/d, Lasix 40 mg/d, Valsartan 160 mg/d), FARHEEN on CPAP, GERD, and alcohol use disorder who has been experiencing dizziness for about 3 weeks now and went to see his PCP today and had routine lab work done and was subsequently called to come to the ED because of renal fail. He has not had any recent change in medication. His dizziness is more pronounce when he stands up. Lab work is noted for creatinine of 2.55, repeated 2.33 and potassium of 5.9. Blood pressure has been as low as 83/49 and has been given IVF Review of Systems 2 Review of Systems: Gen: no fever Resp: no sob, no cough CV: no chest, no VAZQUEZ, no leg edema GI: No n/v, no abd pain Neuro: No confusion [facility] Medical History Anemia Acute pancreatitis Pancreatic pseudocyst Acute heart failure with preserved ejection fraction (HFpEF) Acute exacerbation of CHF (congestive heart failure) Morbid obesity Gastrointestinal bleeding History of cardioversion FARHEEN on CPAP Alcohol abuse HTN (hypertension) (HFpEF) heart failure with preserved ejection fraction Family History Mother HTN (hypertension) Diabetes mellitus Father Diabetes mellitus HTN (hypertension) Maternal Uncle Colon cancer Surgical History History of left hip replacement History of cardiac radiofrequency ablation History of esophagogastroduodenoscopy (EGD) Hx of colonoscopy Status post ORIF of fracture of ankle Social History Household Members: Significant Other Household Members Other:: GF, daughter Housing: Apartment Are you a primary resident care technician to a significant other at home: No Do you presently have visiting nurse or other home services: No Alcohol intake: former Comment: pt refusing high falls measures exc socks Patient Tobacco Use Status: Never used Tobacco e-Cigarette/Vaping Use: Never Used Second Hand Smoke Exposure: No Substance Use Type: Marijuana Advance Directives: Yes Advance Directives on File: Yes Advance Directives Date on File: 01/25/21 Do you have a plan to hurt others: No Plan service: No Current occupational status: retired Current occupation: rt handed Cognitive needs: No Hearing needs: No Vision needs: No Meds Allergies Allergy/AdvReac Type Severity Reaction Status Date / Time No Known Allergies Allergy Verified 12/31/24 13:17 Home Medications ?Medication ?Instructions ?Recorded ?Confirmed ?Last Taken ?Type celecoxib 200 mg capsule (Celebrex) 200 mg PO BID PRN Pain 12/31/24 12/31/24 Unknown History lisinopril 20 mg tablet 20 mg PO DAILY 12/31/24 12/31/24 12/30/24 History melatonin 5 mg capsule 5 mg PO BEDTIME PRN insomnia 12/31/24 12/31/24 12/30/24 History omeprazole 20 mg capsule,delayed 20 mg PO DAILY@0630 12/31/24 12/31/24 12/31/24 History release Physical Exam 2 Vital Signs and Narrative: Vital Signs: Last Vital Signs Temp 97.6 F 12/31/24 13:12 Pulse 79 12/31/24 13:12 Resp 16 12/31/24 13:12 BP 103/64 12/31/24 13:12 Pulse Ox 96 12/31/24 13:12 O2 Del Method Room Air 12/31/24 13:12 BMI result Body Mass Index 33.4 Const: Other: General: AO X 3, no acute distress Resp: CTA bilateral CVS: S1,S2,RRR GI: +BS, NT, no distention Skin: No rash Neuro: motor grossly intact Psych: appropriate affect Results Labs 12/31/24 14:42 12/31/24 14:42 Labs: Laboratory Results - last 24 hr 12/31/24 14:42 MCV 87.2 MCH 27.3 MCHC 31.4 RDW 15.3 Plt Count 267 MPV 10.8 Immature Gran % (Auto) 0.5 H Neut % (Auto) 63.5 Lymph % (Auto) 24.9 [place] % (Auto) 8.6 Eos % (Auto) 1.4 Baso % (Auto) 1.1 Lymph # (Auto) 1.6 [place] # (Auto) 0.6 Eos # (Auto) 0.1 Baso # (Auto) 0.1 Abs Immat Gran (auto) 0.03 Absolute Neuts (auto) 4.2 Absolute Nucleated RBC 0.000 Nucleated RBC % (auto) 0.0 Assessment and Plan (1) SAUL (acute kidney injury): Status: Resolved (2) Hypotension: Status: Acute Plan Pt is a 59-year-old male with a PMH significant for?paroxysmal AFib previously on eliquis, HTN, HFpEF, hx of V-tach s/p ICD in place, HTN, FARHEEN on CPAP, GERD, and alcohol use disorder who presentswith dizziness and Hypotension and found to have SAUL Dizziness SAUL Hypotension -d/t dehydration, renal hypoperfusion -stop BP meds -IVF and monitor renal fucntion -Nephrology consult if not improving Chronic HFrEF, no exacerbation h/o AFib/V-tach Continue Eliquis, amiodarone GERD Continue PPI HTN--stop meds ( Toprolol xl100 mg/d, aldactone 25/d, Lasix 40 mg/d, Valsartan 160 mg/d} FARHEEN CPAP at bedtime Full Code DVT Prophylaxis: Lovenox Pt will require a hospitalization of at least two nights for treatment SAUL Quality Stroke Does the patient have a stroke diagnosis?: No VTE Prior VTE?: No VTE Risk Level:: Medical - moderate - high VTE Device Contraindication: Treatment Not Indicated VTE Drug Contraindication: N/A - Med Ordered
[2024-12-31 15:11] LABS: Ethanol < 10 mg/dL
[2024-12-31 15:15] VITALS: BP 104/62; BP 87/52; PULSE 61; PULSE 66
[2024-12-31 15:15] LABS: Alanine Aminotransferase 8 U/L (0-40); Albumin Level 4.1 g/dL (3.5-5.0); Alkaline Phosphatase 81 U/L (39-117); Anion Gap 14 (12-20); Aspartate Amino Transferase 21 U/L (5-37); Bilirubin Direct 0.2 mg/dL (0.0-0.5); Bilirubin Total 0.5 mg/dL (0.0-1.0); Blood Urea Nitrogen 63 mg/dL (9-16); Carbon Dioxide 24 mmol/L (22-29); Chloride 105 mmol/L (96-108); Creatinine Clr Calc Pharmacy 49.6; Estimated Glomerular Filt Rate 29; Glucose Random 109 mg/dL (60-115); Magnesium 2.2 mg/dL (1.6-2.6); Potassium 5.9 mmol/L (3.3-5.1); Sodium 137 mmol/L (135-145); Total Protein 7.5 g/dL (6.5-8.0)
[2024-12-31 15:16] VITALS: BP 83/49; PULSE 79
--- NOTE | 2024-12-31 15:46 | PHA.MEDREC ---
Addendum entered by Rashid Raza adin 12/31/24 15:50: med rec reviewed Original Note: Pharmacy Consult ? Medication Reconciliation Pharmacy has completed the medication reconciliation. Spoke to patient to confirm med list. Patient had a picture of his medication bottles on his phone. Patient states he is no longer taking Ferrous Sulfate 325 mg and Zofran 4 mg. Patient had all his morning medication today.
[2024-12-31] MEDS: 0.9 % Sodium Chloride Flush 3 ML SYRINGE IVFLUSH (15:54)
[2024-12-31] MEDS: 0.9 % Sodium Chloride 500 ML 999 ML IV (15:54)
[2024-12-31] MEDS: Lactated Ringers 1,000 ML 150 ML IVCONT ×2 (16:41→22:17)
[2024-12-31 17:01] VITALS: BP 126/72; PULSE 62; RESP 18
[2024-12-31] MEDS: Enoxaparin Sodium 40 MG/0.4 ML SYRINGE SUBCUT (18:08)
[2024-12-31 19:11] VITALS: BP 108/62; PULSE 66; RESP 20; TEMP 36.7
[2024-12-31 19:24] LABS: Anion Gap 13 (12-20); Blood Urea Nitrogen 58 mg/dL (9-16); Calcium 9.7 mg/dL (8.4-10.2); Carbon Dioxide 24 mmol/L (22-29); Chloride 107 mmol/L (96-108); Creatinine Clr Calc Pharmacy 58.6; Estimated Glomerular Filt Rate 36; Glucose Random 111 mg/dL (60-115); Potassium 4.7 mmol/L (3.3-5.1); Sodium 139 mmol/L (135-145)
--- NOTE | 2024-12-31 19:27 | PC.NURSE ---
patient repeat potassium resulted at 4.7. provider aware and no need for meds to be given for potassium shift.
[2024-12-31 20:55] VITALS: BMI 33.5
[2024-12-31 21:01] VITALS: BP 101/60; PULSE 67; RESP 18; TEMP 36.5; O2SAT 98
[2024-12-31 21:27] LABS: Glucose, Whole Blood 101 mg/dL (60-115)
[2024-12-31] MEDS: oxyCODONE HCl Immed Release 5 MG TABLET PO (22:16)
[2024-12-31] MEDS: Melatonin 3 MG TABLET 6 MG PO (22:44)
[2025-01-01 04:00] VITALS: BP 108/71; PULSE 67; RESP 16; TEMP 36.2; O2SAT 98
[2025-01-01] MEDS: Lactated Ringers 1,000 ML 150 ML IVCONT ×3 (06:07→20:32)
[2025-01-01] MEDS: Omeprazole 20 MG CAPSULE.DR PO (06:09)
[2025-01-01 06:55] LABS: Alanine Aminotransferase 11 U/L (0-40); Albumin Level 3.7 g/dL (3.5-5.0); Alkaline Phosphatase 72 U/L (39-117); Anion Gap 10 (12-20); Aspartate Amino Transferase 21 U/L (5-37); Bilirubin Total 0.5 mg/dL (0.0-1.0); Blood Urea Nitrogen 45 mg/dL (9-16); Calcium 9.8 mg/dL (8.4-10.2); Carbon Dioxide 27 mmol/L (22-29); Chloride 108 mmol/L (96-108); Creatinine Clr Calc Pharmacy 70.2; Estimated Glomerular Filt Rate 44; Glucose Random 102 mg/dL (60-115); Sodium 140 mmol/L (135-145); Total Protein 6.6 g/dL (6.5-8.0)
[2025-01-01 07:28] VITALS: BP 106/62; PULSE 63; RESP 16; TEMP 36.6; O2SAT 97
[2025-01-01 07:40] LABS: Glucose, Whole Blood 95 mg/dL (60-115)
[2025-01-01] MEDS: Empagliflozin 10 MG TABLET PO (08:52)
--- NOTE | 2025-01-01 09:07 | PC.NURSE ---
Report given to PACU nurse Adilene.
[2025-01-01 09:43] VITALS: BP 100/53; PULSE 69
[2025-01-01 09:44] VITALS: BP 102/56; BP 108/55; PULSE 71; PULSE 86
[2025-01-01 11:12] LABS: Appearance Urine Clear; Color Urine Yellow; Glucose Urine UA >=1000 mg/dL (Negative); Leukocyte Esterase Urine Negative (Negative); Nitrite Urine Negative (Negative); PH 5.5 (5.0-9.0); Specific Gravity - Urine 1.025 (1.005-1.025); UMIC TRIGGER UACC YES; Urine Blood Negative (Negative); Urine Ketones Negative (Negative); Urine Protein Trace mg/dL (Neg-Trace)
[2025-01-01 11:14] LABS: Bacteria Urine None Seen (None Seen); Hyaline Casts Urine 0-2 /LPF (0-2); RBC Urine 0-2 /HPF (0-2); Squamous Epithelial Cell Urine 0-2 /HPF (0-2); WBC Urine 0-5 /HPF (0-5)
--- NOTE | 2025-01-01 11:18 | MHC.CM.PN ---
IMM DELIVERED PT LIVES WITH FAMILY AND IS FUNCTIONALLY INDEP. PT USES CPAP FOR SLEEP, [employer]. NO SERVICES. + HCP ON FILE AND VERIFIED. PCP WENDY GRACIA DP: HOME, NO SERVICES ANTICIPATED. PT HAS OWN RIDE HOME. CM WILL CONTINUE TO FOLLOW FOR ANY CHANGE TO PLAN/NEEDS.
[2025-01-01 11:26] LABS: Creatinine Urine 103.44 mg/dL; Protein/Creatinine Ratio, Ur 0.11 (<0.2); Total Protein Urine Random 11 mg/dL (<12)
--- NOTE | 2025-01-01 11:40 | PM.CNNEP ---
History of Present Illness Reason for Consult Consult date: 01/01/25 Chief Complaint Chief complaint: SAUL History of Present Illness Narrative: 59 y/o male with a medical history of afib previously on eliquis, HTN, HFpEF, hx of V-tach s/p ICD in place, HTN, FARHEEN on CPAP, GERD, and alcohol use disorder. Presented 12/31 with dizziness and low blood pressure. Nephrology consulted for SAUL. Creatinine 2.55 on 12/31, has been trending down, 01/01 is 1.63. Prior creatinine 0.79 on 08/11/24. Patient has been receiving IVF, blood pressure medications have been held. He has had good urine output, no urinary symptoms. blood pressures have been low, initially 83/49 on presentation He reports poor PO intake for the days leading up to his hospitalization. He states he intermittently has this issue due to RUQ abdominal pain that causes poor appetite- eating worsens his pain. He states he was also continuing to take his regular medications while he was here. Review of Systems Constitutional: Reports no additional constitutional complaints Cardiovascular: Denies chest pain, Denies leg edema and Denies dyspnea Respiratory: Denies dyspnea Gastrointestinal: Reports abdominal pain (RUQ pain improved), Denies diarrhea, Denies nausea and Denies vomiting Genitourinary: Denies hematuria, Denies dysuria and Denies flank pain Musculoskeletal: Denies muscle cramps Skin/Breast: Denies rash PMFSH Past Medical History Medical History Anemia Acute pancreatitis Pancreatic pseudocyst Acute heart failure with preserved ejection fraction (HFpEF) Acute exacerbation of CHF (congestive heart failure) Morbid obesity Gastrointestinal bleeding History of cardioversion FARHEEN on CPAP Alcohol abuse HTN (hypertension) (HFpEF) heart failure with preserved ejection fraction Family History Family History Mother HTN (hypertension) Diabetes mellitus Father Diabetes mellitus HTN (hypertension) Maternal Uncle Colon cancer Surgical History Surgical History History of left hip replacement History of cardiac radiofrequency ablation History of esophagogastroduodenoscopy (EGD) Hx of colonoscopy Status post ORIF of fracture of ankle Social History Social History Household Members: Significant Other Household Members Other:: GF, daughter Housing: Apartment Are you a primary workforce investment act career manager to a significant other at home: No Do you presently have visiting nurse or other home services: No Alcohol intake: former Comment: pt refusing high falls measures exc socks Patient Tobacco Use Status: Never used Tobacco e-Cigarette/Vaping Use: Never Used Second Hand Smoke Exposure: No Substance Use Type: Marijuana Currently Displaying Signs/Symptoms of Drug Intoxication Withdrawal: No Have you been hit, kicked, punched, or otherwise hurt by someone within the past year? If so, by whom?: No Are you made to feel afraid or neglected: No Advance Directives: Yes Advance Directives on File: Yes Advance Directives Date on File: 01/25/21 Do you have a plan to hurt others: No Plan Recently lost weight without trying: No How much weight loss: Not applicable Eating poorly because of decreased appetite: No Nutrition screen score: 0 Nutrition Risks: No Nutritional Risk service: No Current occupational status: retired Current occupation: rt handed Cognitive needs: No Hearing needs: No Vision needs: No Meds Allergies Allergy/AdvReac Type Severity Reaction Status Date / Time No Known Allergies Allergy Verified 12/31/24 13:17 Active Medications: Current Medications Acetaminophen (Acetaminophen 325 Mg Tablet) 650 mg PO Q6H PRN PRN Reason: Pain, Mild 1-3,fever,headache Calcium Carbonate (Calcium Carbonate 750 Mg Tab.Chew) 750 mg PO Q4H PRN PRN Reason: Heartburn Empagliflozin (Empagliflozin 10 Mg Tablet) 10 mg PO DAILY TIGIST Last Admin: 01/01/25 08:52 Dose: 10 mg Enoxaparin Sodium (Enoxaparin Sodium 40 Mg/0.4 Ml Syringe) 40 mg SUBCUT Q24H TIGIST Last Admin: 12/31/24 18:08 Dose: 40 mg Lactated Ringer's (Lr) 1,000 mls @ 150 mls/hr IVCONT .Q6H40M TIGIST Last Admin: 01/01/25 06:07 Dose: 150 mls/hr Lorazepam (Lorazepam 1 Mg Tablet) 1 mg PO Q4H PRN PRN Reason: Breakthrough alcohol withdrawa Stop: 01/04/25 23:21 Lorazepam (Lorazepam 1 Mg Tablet) 1 mg PO Q4H TIGIST; Taper Stop: 01/05/25 01:29 Last Admin: 01/01/25 08:52 Dose: Not Given Magnesium Hydroxide (Milk Of Magnesia 30 Ml Oral.Susp) 30 ml PO DAILY PRN PRN Reason: Constipation Melatonin (Melatonin 3 Mg Tablet) 6 mg PO BEDTIME PRN PRN Reason: Sleep Omeprazole (Omeprazole 20 Mg Capsule.Dr) 20 mg PO DAILY@0630 [facility] Last Admin: 01/01/25 06:09 Dose: 20 mg Oxycodone HCl (Oxycodone Hcl Immed Release 5 Mg Tablet) 5 mg PO Q6H PRN PRN Reason: Pain, Severe (Pain Scale 7-10) Last Admin: 12/31/24 22:16 Dose: 5 mg Sodium Chloride (0.9 % Sodium Chloride Flush 3 Ml Syringe) 3 ml IVFSH [facility] Last Admin: 01/01/25 08:53 Dose: Not Given Home Medications ?Medication ?Instructions ?Recorded ?Confirmed ?Last Taken ?Type celecoxib 200 mg capsule (Celebrex) 200 mg PO BID PRN Pain 12/31/24 12/31/24 Unknown History lisinopril 20 mg tablet 20 mg PO DAILY 12/31/24 12/31/24 12/30/24 History melatonin 5 mg capsule 5 mg PO BEDTIME PRN insomnia 12/31/24 12/31/24 12/30/24 History omeprazole 20 mg capsule,delayed 20 mg PO DAILY@0630 12/31/24 12/31/24 12/31/24 History release Physical Exam Vital Signs: Last Vital Signs Temp 97.9 F 01/01/25 07:28 Pulse 86 01/01/25 09:44 Resp 16 01/01/25 07:28 BP 102/56 L 01/01/25 09:44 Pulse Ox 97 01/01/25 07:28 O2 Del Method Room Air 01/01/25 07:28 BMI result Body Mass Index 33.5 Const General: no acute distress, alert and awake Resp Effort & Inspection: normal respiratory effort and able to speak in complete sentences Auscultation: clear to auscultation bilaterally Cardio Rate: regular rate Rhythm: regular rhythm Heart sounds: S1 normal heart sound present and S2 normal heart sound present GI Palpation (GI): Soft to palpation and nontender General: Yes no CVA tenderness Back/Spine/Pelvis Back: no CVA tenderness Skin Rashes: no rashes Extrem General: No edema and No pedal edema Results Lab Results 12/31/24 14:42 01/01/25 06:00 Lab results: Chemistry 12/31/24 12/31/24 01/01/25 14:42 18:58 06:00 Sodium 137 139 140 Potassium 5.9 H 4.7 D 5.0 Carbon Dioxide 24 24 27 BUN 63 H 58 H 45 H Creatinine 2.30 H 1.95 H 1.63 H Calcium 10.0 9.7 9.8 Hematology 12/31/24 14:42 WBC 6.5 Hgb 11.1 L Plt Count 267 Urinalysis 01/01/25 10:51 Urine Color Yellow Urine Appearance Clear Urine pH 5.5 Ur Specific [place] 1.025 Urine Protein Trace Urine Glucose (UA) >=1000 H Urine Ketones Negative Urine Blood Negative Urine Nitrite Negative Ur Leukocyte Esterase Negative Urine RBC 0-2 Urine WBC 0-5 Ur Squamous Epith Cells 0-2 Hyaline Casts 0-2 Urine Studies 01/01/25 10:51 Urine Creatinine 103.44 Assessment and Plan (1) Hypotension: Qualifiers: Hypotension type: unspecified hypotension type Qualified Code(s): I95.9 - Hypotension, unspecified Status: Acute (2) SAUL (acute kidney injury): Status: Resolved Plan SAUL likely from dehydration while taking ARB, diuretics, as well as hemodynamic SAUL from hypotension. Improving recommend continuing IVF, encourage oral hydration will check aldosterone to renin ratio- patient with hyperkalemia, may have had aldosterone problem given hypotension and hyperkalemia should also consider getting an echo due to unexplained hypotension will check urine protein/creatinine ratio and urine microalbumin levels recommend monitoring renal function again tomorrow morning, if continues to improve/stabilize will continue to follow patient in outpatient clinic continue supportive care Discussed with Dr Huerta Procedures Date of Service Date of Service: 01/01/25
[2025-01-01 11:42] LABS: Glucose, Whole Blood 106 mg/dL (60-115)
[2025-01-01 12:16] LABS: Creatinine Urine 105.02 mg/dL; Microalbum/Creatinine Ratio Ur 6.6 ug/mg cr (<30)
[2025-01-01 15:53] VITALS: BP 108/64; PULSE 72; RESP 18; TEMP 36.6; O2SAT 96
[2025-01-01 16:05] LABS: Glucose, Whole Blood 102 mg/dL (60-115)
[2025-01-01] MEDS: Enoxaparin Sodium 40 MG/0.4 ML SYRINGE SUBCUT (17:09)
[2025-01-01 19:26] VITALS: BP 113/68; PULSE 78; RESP 15; TEMP 36.6; O2SAT 97
[2025-01-01 20:05] LABS: Glucose, Whole Blood 101 mg/dL (60-115)
[2025-01-01] MEDS: Melatonin 3 MG TABLET 6 MG PO (20:44)
[2025-01-02] MEDS: Lactated Ringers 1,000 ML 150 ML IVCONT ×2 (02:54→09:17)
[2025-01-02 03:15] VITALS: BP 144/84; PULSE 60; RESP 16; TEMP 36; O2SAT 97
[2025-01-02] MEDS: Magnesium Hydrox/Alum Hydrox 30 ML ORAL.SUSP 15 ML PO (04:18)
[2025-01-02] MEDS: Omeprazole 20 MG CAPSULE.DR PO (06:19)
[2025-01-02 07:18] VITALS: BP 131/88; PULSE 75; RESP 16; TEMP 36.8; O2SAT 94
[2025-01-02 07:20] LABS: Glucose, Whole Blood 90 mg/dL (60-115)
[2025-01-02] MEDS: Empagliflozin 10 MG TABLET PO (09:13)
[2025-01-02 09:24] LABS: Anion Gap 9 (12-20); Blood Urea Nitrogen 25 mg/dL (9-16); Calcium 9.1 mg/dL (8.4-10.2); Carbon Dioxide 27 mmol/L (22-29); Chloride 108 mmol/L (96-108); Estimated Glomerular Filt Rate > 60; Glucose Random 98 mg/dL (60-115); Potassium 4.5 mmol/L (3.3-5.1); Sodium 139 mmol/L (135-145)
--- NOTE | 2025-01-02 11:30 | P.PNNP_ITS ---
Subjective Subjective Date of Service: 01/02/25 Interval history: 59 y/o male with a medical history of afib previously on eliquis, HTN, HFpEF, hx of V-tach s/p ICD in place, HTN, FARHEEN on CPAP, GERD, and alcohol use disorder. Presented 12/31 with dizziness and low blood pressure. following for SAUL creatinine 1.18 today down from 1.63 yesterday blood pressures increasing Physical Exam 2 Vital Signs: Vital Signs: Last Vital Signs Temp 98.2 F 01/02/25 07:18 Pulse 75 01/02/25 07:18 Resp 16 01/02/25 07:18 BP 131/88 01/02/25 07:18 Pulse Ox 94 01/02/25 07:18 O2 Del Method Room Air 01/02/25 07:18 BMI result Body Mass Index 33.5 Const: General: no acute distress, alert and awake Resp: Effort & Inspection: normal respiratory effort and able to speak in complete sentences Auscultation: clear to auscultation bilaterally Cardio: Rate: regular rate Rhythm: regular rhythm Heart sounds: S1 normal heart sound present and S2 normal heart sound present GI: Palpation (GI): Soft to palpation and nontender : General: Yes no CVA tenderness Back/Spine/Pelvis: Back: no CVA tenderness Skin: Rashes: no rashes Extrem: General: No edema and No pedal edema Objective Data Labs 12/31/24 14:42 01/02/25 08:19 Labs: Laboratory Results - last 24 hr 01/01/25 01/01/25 01/01/25 10:51 16:00 19:59 Sodium Potassium Chloride Carbon Dioxide Anion Gap BUN Creatinine Estim Creat Clear Calc Estimated GFR POC Glucose 102 101 Random Glucose Calcium Urine Creatinine 105.02 Urine Microalbumin 7.0 Microalb/Creat Ratio 6.6 01/02/25 01/02/25 01/02/25 07:14 08:19 11:30 Sodium 139 Potassium 4.5 Chloride 108 Carbon Dioxide 27 Anion Gap 9 L BUN 25 H Creatinine 1.18 Estim Creat Clear Calc 97.0 Estimated GFR > 60 POC Glucose 90 120 H Random Glucose 98 Calcium 9.1 D Urine Creatinine Urine Microalbumin Microalb/Creat Ratio Procedures Date of Service Date of Service: 01/02/25 Assessment & Plan Assessment and plan (1) SAUL (acute kidney injury): Status: Resolved (2) Hypotension: Status: Acute Plan SAUL likely from dehydration while taking ARB, diuretics, as well as hemodynamic SAUL from hypotension. SAUL improving, creatinine close to baseline now hypotension resolved recommend to encourage oral hydration. May re-start home furosemide, metoprolol and spironolactone now that blood pressures are improving. Recommend hold valsartan until patient follows up in the nephrology outpatient clinic no significant proteinuria, urine protein/creatinine 0.11; urine microalbumin 11; no blood or other cells on UA aldosterone to renin ratio pending will arrange for outpatient follow up in 1-[address] Huerta Time Spent With Patient Time: Total time managing care of this patient today ____ minutes. Progress Note: Quality Stroke Does the patient have a stroke diagnosis?: No
[2025-01-02 11:35] LABS: Glucose, Whole Blood 120 mg/dL (60-115)
--- NOTE | 2025-01-02 12:01 | PM.DS ---
DS: Providers Provider Date of Service: 01/02/25 Date of admission: 12/31/24 14:59 Date of discharge: 01/02/25 Primary care physician: Liliane Mata PA-C Consults: 01/01/25 08:22 Consult to Nephrology Routine Consulting Provider: [facility] Reason for consultation: Saul Has provider been notified: No DS: Diagnosis Discharge Diagnosis (1) SAUL (acute kidney injury): Status: Resolved (2) Hypotension: Status: Acute DS: Summary Hospital Course Hospital Course: admission hpi Chief Complaint: SAUL 59-year-old male with a PMH significant for?paroxysmal AFib previously on Eliquis, HTN, HFpEF, hx of V-tach s/p ICD in place, HTN (takes Toprolol xl100 mg/d, aldactone 25/d, Lasix 40 mg/d, Valsartan 160 mg/d), FARHEEN on CPAP, GERD, and alcohol use disorder who has been experiencing dizziness for about 3 weeks now and went to see his PCP today and had routine lab work done and was subsequently called to come to the ED because of renal fail. He has not had any recent change in medication. His dizziness is more pronounce when he stands up. Lab work is noted for creatinine of 2.55, repeated 2.33 and potassium of 5.9. Blood pressure has been as low as 83/49 and has been given IVF hosptal course: Patient presented with dizziness and found to have SAUL, and hypotension in setting multiple BP meds (takes Toprolol xl100 mg/d, aldactone 25/d, Lasix 40 mg/d, Valsartan 160 mg/d, Lisinopril 20/d). SAUL is due to renal hypoperfusion from hypotension d/t BP meds, and resulting in dizzinesss as well. He was managed with IVF, and holding BP meds. blood pressure is better and renal function is now normal, Cratine is 1.18. He was seen by Nephrology with recommendation to hold Valsartan and Lisinopril , he will resume metoprolol, lasix and aldactone and will follow up with nephrology on outaptient basis. Time Attestation Discharge Coordination Time (in mins): 40 Quality: Safe Use of Opioids Does Pt have an Active Cancer Diagnosis on the Problem List?: No Quality: Stroke Does the patient have a stroke diagnosis?: No Physical Exam Vital Signs: Vital Signs: Last Vital Signs Temp 97.9 F 01/01/25 07:28 Pulse 63 01/01/25 07:28 Resp 16 01/01/25 07:28 BP 106/62 01/01/25 07:28 Pulse Ox 97 01/01/25 07:28 O2 Del Method Room Air 01/01/25 07:28 BMI result Body Mass Index 33.5 General: AO X 3, no acute distress Resp: CTA bilateral CVS: S1,S2,RRR GI: +BS, NT, no distention Skin: No rash Neuro: motor grossly intact Psych: appropriate affect DS: Data Data Completed and Pending Completed studies during hospitalization [Text1]: Procedures A Labs on day of discharge: Laboratory Results - last 24 hr 12/31/24 12/31/24 12/31/24 14:42 18:58 21:22 WBC 6.5 RBC 4.06 L Hgb 11.1 L Hct 35.4 L MCV 87.2 MCH 27.3 MCHC 31.4 RDW 15.3 Plt Count 267 MPV 10.8 Immature Gran % (Auto) 0.5 H Neut % (Auto) 63.5 Lymph % (Auto) 24.9 Jessamine % (Auto) 8.6 Eos % (Auto) 1.4 Baso % (Auto) 1.1 Lymph # (Auto) 1.6 Jessamine # (Auto) 0.6 Eos # (Auto) 0.1 Baso # (Auto) 0.1 Abs Immat Gran (auto) 0.03 Absolute Neuts (auto) 4.2 Absolute Nucleated RBC 0.000 Nucleated RBC % (auto) 0.0 Hold Purple Top Sodium 137 139 Potassium 5.9 H 4.7 D Chloride 105 107 Carbon Dioxide 24 24 Anion Gap 14 13 BUN 63 H 58 H Creatinine 2.30 H 1.95 H Estim Creat Clear Calc 49.6 58.6 Estimated GFR 29 36 POC Glucose 101 Random Glucose 109 111 Calcium 10.0 9.7 Magnesium 2.2 Total Bilirubin 0.5 Direct Bilirubin 0.2 AST 21 ALT 8 Alkaline Phosphatase 81 Total Protein 7.5 Albumin 4.1 Ethyl Alcohol < 10 01/01/25 01/01/25 06:00 07:27 WBC RBC Hgb Hct MCV MCH MCHC RDW Plt Count MPV Immature Gran % (Auto) Neut % (Auto) Lymph % (Auto) Jessamine % (Auto) Eos % (Auto) Baso % (Auto) Lymph # (Auto) Jessamine # (Auto) Eos # (Auto) Baso # (Auto) Abs Immat Gran (auto) Absolute Neuts (auto) Absolute Nucleated RBC Nucleated RBC % (auto) Hold Purple Top SEE NOTE Sodium 140 Potassium 5.0 Chloride 108 Carbon Dioxide 27 Anion Gap 10 L BUN 45 H Creatinine 1.63 H Estim Creat Clear Calc 70.2 Estimated GFR 44 POC Glucose 95 Random Glucose 102 Calcium 9.8 Magnesium Total Bilirubin 0.5 Direct Bilirubin AST 21 ALT 11 Alkaline Phosphatase 72 Total Protein 6.6 Albumin 3.7 Ethyl Alcohol Discharge Plan Discharge Anticipated Discharge Date/Time: 01/02/25 12:09 Patient Disposition: Home, Self-Care Discharge Diagnosis: Acute Kidney Injury, Hypotension, Dizziness Referrals: Liliane Mata PA-C [Primary Care Provider, Internal Medicine] - 1 Week Discharge Medications: Continued furosemide 40 mg tablet 40 mg PO DAILY Qty: 30 5RF spironolactone 25 mg tablet 25 mg PO DAILY Qty: 90 3RF Protocol: Hold for SBP< HOLD for SBP < : 90 Jardiance 10 mg tablet 10 mg PO DAILY Qty: 90 3RF metoprolol succinate [Toprol XL] 100 mg tablet extended release 24 hr 100 mg PO DAILY Qty: 90 3RF celecoxib [Celebrex] 200 mg capsule 200 mg PO BID PRN (Reason: Pain) omeprazole 20 mg capsule,delayed release(DR/EC) 20 mg PO DAILY@0630 melatonin 5 mg capsule 5 mg PO BEDTIME PRN (Reason: insomnia) Discontinued valsartan 160 mg tablet 160 mg PO BID Qty: 180 3RF Protocol: Hold for SBP< HOLD for SBP < : 90 lisinopril 20 mg tablet 20 mg PO DAILY No Action (DME) blood pressure monitor [Blood Pressure Kit] Kit See Rx Instructions .Route Qty: 1 0RF Rx Instructions: As directed (DME) Folding Front Wheeled walker See Rx Instructions .ROUTE .MEDSUPPLY Qty: 1 0RF Rx Instructions: Duration: 99 days (DME) Blood Pressure Cuff Misc See Rx Instructions .Route Qty: 1 0RF Rx Instructions: As directed Discharge Orders: Discharge Order (Routine); Ordered 01/02/25 Ordered By: Narendra Mlapah Diet: Advance to usual diet Activity on Discharge: As tolerated Stand Alone Forms: Patient Portal Discharge page Print Language: Ivorian Care Plan Goals: recovery from kidney failure and dizziness Health Concerns: Kidney injury Hypotension Dizziness Plan of Treatment: Stopped taking Losartan and Lisinopril. Continue taking metoprpolol, Lasix and Aldacone Follow up with amy doctor in a week kidney office will arrange for follow up appointment with you, if get dizzinesss, have your blood pressure or call 911, Assessment: see above
--- NOTE | 2025-01-02 12:22 | MHC.CM.PN ---
DP: PT HAS BEEN MEDICALLY CLEARED FOR DC HOME, NO SERVICES. PT HAS OWN RIDE HOME
[2025-01-02 13:45] VITALS: BP 127/76; PULSE 76
[2025-01-02] MEDS: Metoprolol Succinate ER 100 MG TAB.ER.24H PO (13:47)
[2025-01-02] MEDS: Furosemide 40 MG TABLET PO (13:47)
[2025-01-02] MEDS: Spironolactone 25 MG TABLET PO (13:47)
[2025-01-10 15:59] LABS: Aldosterone/Renin Ratio 1.1 Ratio (0.9-28.9); Plasma Renin Activity 1.87 ng/mL/h (0.25-5.82)
== END 2025-01-02 15:00 | disposition home or self-care (01) | DRG 312 ==
LOC: HO.ED 14:45 → HO.EDOVER 15:06 → HO.S3 19:40
PROVIDERS: Nurse Practitioner Family; Physician Assistant; Admitting Provider Student in an Organized Health Care Education/Training Program; Emergency Provider Emergency Medicine Emergency Medical Services; Visit Provider Internal Medicine
DX: I95.2 Hypotension due to drugs (principal); I47.20 Ventricular tachycardia, unspecified; I50.22 Chronic systolic (congestive) heart failure; N17.9 Acute kidney failure, unspecified; T46.5X5A Adverse effect of other antihypertensive drugs, initial encounter; E86.0 Dehydration; I11.0 Hypertensive heart disease with heart failure; K21.9 Gastro-esophageal reflux disease without esophagitis; I48.0 Paroxysmal atrial fibrillation; G47.33 Obstructive sleep apnea (adult) (pediatric); Z95.810 Presence of automatic (implantable) cardiac defibrillator; Z79.899 Other long term (current) drug therapy
CPT/HCPCS: 36415; 80048; 80053; 80076; 80307; 81001; 82043; 82088; 82570; 82947; 83735; 84156; 85025; 93005; 99285; J1650; J7120

== ENCOUNTER → 2024-12-31 14:59 | Outpatient (BNV) | payer MEDICARE, MEDICAID, SELFPAY | PROVIDERS: Admitting Provider Student in an Organized Health Care Education/Training Program; Emergency Provider Emergency Medicine Emergency Medical Services; Visit Provider Nurse Practitioner Family | DX: N17.9 Acute kidney failure, unspecified (principal); I95.9 Hypotension, unspecified | CPT/HCPCS: 99222; 99232 ==

== ENCOUNTER → 2024-12-31 14:59 | Outpatient (BNV) | payer MEDICARE, MEDICAID, SELFPAY | PROVIDERS: Admitting Provider Student in an Organized Health Care Education/Training Program; Emergency Provider Emergency Medicine Emergency Medical Services; Visit Provider Internal Medicine | DX: N17.9 Acute kidney failure, unspecified (principal); I95.9 Hypotension, unspecified | CPT/HCPCS: 99239 ==

== ENCOUNTER → 2024-12-31 23:59 | Outpatient (BNV) | payer MEDICARE, MEDICAID, SELFPAY ==
--- NOTE | 2025-01-05 09:18 | MHC.OFFVIS ---
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 Allergies No Known Allergies Allergy (Verified 12/31/24 13:17) [facility] Medical History Anemia Acute pancreatitis Pancreatic pseudocyst Acute heart failure with preserved ejection fraction (HFpEF) Acute exacerbation of CHF (congestive heart failure) Morbid obesity Gastrointestinal bleeding History of cardioversion FARHEEN on CPAP Alcohol abuse HTN (hypertension) (HFpEF) heart failure with preserved ejection fraction Surgical History History of left hip replacement History of cardiac radiofrequency ablation History of esophagogastroduodenoscopy (EGD) Hx of colonoscopy Status post ORIF of fracture of ankle Family History Mother HTN (hypertension) Diabetes mellitus Father Diabetes mellitus HTN (hypertension) Maternal Uncle Colon cancer Social History Household Members: Significant Other Household Members Other:: GF, daughter Housing: Apartment Are you a primary continuum of care manager to a significant other at home: No Do you presently have visiting nurse or other home services: No Alcohol intake: former Comment: pt prefer own socks Patient Tobacco Use Status: Never used Tobacco e-Cigarette/Vaping Use: Never Used Second Hand Smoke Exposure: No Substance Use Type: Marijuana Advance Directives Date on File: 01/25/21 service: No Current occupational status: retired Current occupation: rt handed Cognitive needs: No Hearing needs: No Vision needs: No Office Procedures Cardiac Device Check Cardiac Device Check Details: Date of service 12/31/2024; Battery life >12years; normal lead parameters; no treated VT/VF; normal ICD function. [id number] Cardiac Interrogation, implant defibrillator w/interim Procedure code (CPT) selection complete Assessment & Plan Assessment & Plan (1) ICD (implantable cardioverter-defibrillator) in place: Code(s): Z95.810 - Presence of automatic (implantable) cardiac defibrillator Category: Medical (2) NICM (nonischemic cardiomyopathy): Code(s): I42.8 - Other cardiomyopathies Category: Medical Plan x Coding Level of Care Code Procedure Only Diagnoses ICD (implantable cardioverter-defibrillator) in place Z95.810 NICM (nonischemic cardiomyopathy) I42.8 CPT Codes Cardiac Device Check - Cardiac Device 13: [id number] Cardiac Interrogation, implant defibrillator w/interim ([id number])
== END ==
PROVIDERS: Visit Provider Internal Medicine
DX: I49.3 Ventricular premature depolarization (principal); R07.9 Chest pain, unspecified
CPT/HCPCS: 93010; 93295

== ENCOUNTER 2025-01-09 12:53 | Outpatient (AMB) | payer MEDICARE, MEDICAID, SELFPAY ==
--- NOTE | 2025-01-09 12:55 | A.OFFVIS_ITS ---
Vital Signs 01/09/25 12:56 Height 6 ft 3 in Weight 256 lb 9.889 oz BMI 32.1 BP 113/72 Blood Pressure Location Lt brachial Position Sitting Pulse 76 Pulse Source Pulse Oximeter Intake Visit Reasons: [place] [facility] [place] Boring Machine Set Up Operator Required: No Barrel Line Operator: Barrel Line Operator Present Allergies No Known Allergies Allergy (Verified 01/09/25 12:58) Medication List - Last Reconciled 01/09/25 by ORA Contreras blood pressure monitor (Blood Pressure Kit) As directed celecoxib (Celebrex) 200 mg PO BID PRN cholecalciferol (vitamin D3) 50 mcg PO DAILY 90 days empagliflozin (Jardiance) 10 mg PO DAILY [Folding Front Wheeled walker Duration: 99 days] furosemide 40 mg PO DAILY mecobalamin (vitamin B12) 1,000 mcg sublingual BEDTIME 90 days MDD 1000mcg melatonin 5 mg PO BEDTIME PRN metoprolol succinate ER (Toprol XL) 100 mg PO DAILY miscellaneous medical supply (Blood Pressure Cuff) As directed omeprazole 20 mg PO DAILY@0630 spironolactone 25 mg See Protocol PO DAILY HPI HPI [place] [facility] [place]: Details: Nitesh is a 59-year-old male with past medical history of hypertension, alcohol use, obesity, nonischemic cardiomyopathy, paroxysmal atrial fibrillation status post ablation 04/2024, abdominal hematoma, no longer on anticoagulation, who was admitted to [facility] December 2024 with dizziness and found to have SAUL and hypotension. He was taken off valsartan and given IV fluids. His creatinine was as high as 2.55 and improved to 1.18 prior to discharge. He now presents for follow-up. Today he reports he has been doing well since his hospital discharge. He is no longer feeling dizziness. He is taking meds as directed and not drinking alcoh ol routinely. No chest discomfort at rest or with activity. No shortness of breath, palpitations, presyncope, syncope, falls. No PND, orthopnea. Compliant with CPAP. Daughter is present. [facility] Medical History PAF (paroxysmal atrial fibrillation) HTN (hypertension) (HFpEF) heart failure with preserved ejection fraction Ventricular tachycardia Anemia Acute pancreatitis Pancreatic pseudocyst Acute heart failure with preserved ejection fraction (HFpEF) Acute exacerbation of CHF (congestive heart failure) Morbid obesity Gastrointestinal bleeding History of cardioversion FARHEEN on CPAP Alcohol abuse Surgical History History of left hip replacement History of cardiac radiofrequency ablation History of esophagogastroduodenoscopy (EGD) Hx of colonoscopy Status post ORIF of fracture of ankle Family History Mother HTN (hypertension) Diabetes mellitus Father Diabetes mellitus HTN (hypertension) Maternal Uncle Colon cancer Social History Household Members: Significant Other Household Members Other:: GF, daughter Housing: Apartment Are you a primary personal care attendant to a significant other at home: No Do you presently have visiting nurse or other home services: No Alcohol intake: former Comment: pt prefer own socks Patient Tobacco Use Status: Never used Tobacco e-Cigarette/Vaping Use: Never Used Second Hand Smoke Exposure: No Substance Use Type: Marijuana Advance Directives Date on File: 01/25/21 service: No Current occupational status: retired Current occupation: rt handed Cognitive needs: No Hearing needs: No Vision needs: No Review of Systems Const All systems reviewed & are unremarkable except as noted in HPI and below ENT Denies dizziness Card Denies chest pain, Denies chest pain at rest, Denies chest pain with activity, Denies rapid heart rate, Denies pedal edema, Denies edema, Denies leg edema, Denies lightheadedness, Denies palpitations, Denies dyspnea, Denies dyspnea on exertion and Denies orthopnea Resp Denies cough, Denies dyspnea and Denies dyspnea on exertion GI Details: reflux Denies hematochezia and Denies change in stool character Musc Denies abnormal gait, Denies limited range of motion, Denies muscle cramps, Denies muscle weakness, Denies numbness, Denies radiating pain into limb, Denies stiffness and Denies tingling Neuro Denies abnormal gait, Denies dizziness, Denies numbness and Denies tingling Endo Denies palpitations Physical Exam Vital Signs: Last Vital Signs Pulse 76 01/09/25 12:56 BP 113/72 01/09/25 12:56 BMI result Body Mass Index 32.1 Const General: cooperative, healthy appearing, comfortable and no acute distress Orientation/consciousness: patient oriented x3 Neck Neck: Yes normal visual inspection Resp Effort & Inspection: normal respiratory effort Auscultation: clear to auscultation bilaterally, no crackles, no rales, no rhonchi and no wheezes Cardio Rate: regular rate Rhythm: regular rhythm Heart sounds: S1 normal heart sound present, S2 normal heart sound present, no gallops, no murmurs and no rubs Neuro General: patient oriented x3 Extrem General: Yes normal to inspection, No no pedal edema and No calf tenderness Psych Appearance: grossly normal Mental Status: mental status grossly normal Speech and movement: Normal speech and movement present Assessment & Plan Assessment & Plan (1) HTN (hypertension): Code(s): I10 - Essential (primary) hypertension Category: Medical Plan: Blood pressure goal less than 130/80. Recent hospital admission for dizziness, SAUL and hypotension. He was taken off valsartan. He was continued on metoprolol XL 100 mg daily, spironolactone 25 mg daily furosemide 40 mg daily. Blood pressure well controlled at this time. Last creatinine back to normal range. Instructed on periodic home blood pressure monitoring and call if systolic is running greater than 140. If needed amlodipine can be added. (2) SAUL (acute kidney injury): Code(s): N17.9 - Acute kidney failure, unspecified Category: Medical Plan: Resolved with IV fluid and stopping valsartan. He has an upcoming appointment with Nephrology. (3) (HFpEF) heart failure with preserved ejection fraction: Code(s): I50.30 - Unspecified diastolic (congestive) heart failure Category: Medical Plan: History of heart failure with preserved EF. Last echocardiogram done 08/21/2024 showed EF 55-60%, mild LVH, impaired relaxation, moderately dilated RV with preserved function he does not appear fluid overloaded on examination today. Signs and symptoms of heart failure reviewed with him. Continue Jardiance, furosemide, spironolactone. (4) PAF (paroxysmal atrial fibrillation): Code(s): I48.0 - Paroxysmal atrial fibrillation Category: Medical Plan: History of paroxysmal atrial fibrillation with prior cardioversion. Status post ablation 04/2024. He is now off amiodarone and he is off Eliquis due to history of GI/ abdominal bleed. Pulse is regular on examination today. Clinically in sinus rhythm. No recent heart palpitations. (5) ICD (implantable cardioverter-defibrillator) in place: Code(s): Z95.810 - Presence of automatic (implantable) cardiac defibrillator Category: Medical Plan: Status post Medtronic ICD. Per [place] records, it seems he was in atrial fibrillation with very rapid rate and then started having QRS widening. Not clear if it is just atrial fibrillation or truly VT. No recent VT or VF. Normally functioning on remote device interrogation. Will arrange for office device check next visit. (6) Hospital discharge follow-up: Code(s): Z09 - Encounter for follow-up examination after completed treatment for conditions other than malignant neoplasm Category: Medical Plan: As above (7) Preoperative cardiovascular examination: Code(s): Z01.810 - Encounter for preprocedural cardiovascular examination Category: Medical Plan: Preop for right total hip replacement in February [address] Roberto. Cardiac catheterization 02/2023 with normal coronary arteries. Last echo with normal EF. EKG 12/31/2024 normal sinus rhythm, rate 65. He does have history of heart failure with preserved EF, ICD, PAF status post ablation. He can proceed with intermediate cardiac risk. Call/consult Cardiology if needed Plan Time spent on chart review, documentation, interview and assessment Coding Level of Care Code Est Pt Level 4 (08552) Complex EM visit Add On G2211 Diagnoses HTN (hypertension) I10 SAUL (acute kidney injury) N17.9 (HFpEF) heart failure with preserved ejection fraction I50.30 PAF (paroxysmal atrial fibrillation) I48.0 ICD (implantable cardioverter-defibrillator) in place Z95.810 Hospital discharge follow-up Z09 Preoperative cardiovascular examination Z01.810 Time Spent (min) 30
[2025-01-09 12:56] VITALS: BP 113/72; PULSE 76; BMI 32.1
--- OUTSIDE RECORDS SUMMARY | 2025-01-09 15:19 | XMS_ITS | Encounter Summary ---
Author Organization [facility] Address [address] [place] [address] Care Team Providers Care Consumer Loan Officer Name Role Phone Unavailable Primary Care Provider Unavailabl e Encounter Details Date Type Department Care Team (Late st Contact Info) Description 03/22/2023 Scanned Document [facility] Cardiology [place] [address], [address] [address] Provider, Historical . Social History Tobacco Use [...] your living situation today? I have a [facility] place to live 02/20/2023 Interpersonal Safety [...]
== END 2025-01-09 13:41 | disposition home or self-care (01) ==
LOC: HO.HCS 12:53
PROVIDERS: Visit Provider Nurse Practitioner Family
DX: I10 Essential (primary) hypertension (principal); N17.9 Acute kidney failure, unspecified; I50.30 Unspecified diastolic (congestive) heart failure; I48.0 Paroxysmal atrial fibrillation; Z95.810 Presence of automatic (implantable) cardiac defibrillator; Z09 Encounter for follow-up examination after completed treatment for conditions other than malignant neoplasm; Z01.810 Encounter for preprocedural cardiovascular examination
CPT/HCPCS: 99214; G2211

== ENCOUNTER → 2025-01-09 12:53 | Outpatient (BNVA) | payer MEDICARE, MEDICAID, SELFPAY | PROVIDERS: Visit Provider Nurse Practitioner Family | DX: Z01.810 Encounter for preprocedural cardiovascular examination (principal); Z09 Encounter for follow-up examination after completed treatment for conditions other than malignant neoplasm; I11.0 Hypertensive heart disease with heart failure; I50.30 Unspecified diastolic (congestive) heart failure; N17.9 Acute kidney failure, unspecified; Z95.810 Presence of automatic (implantable) cardiac defibrillator | CPT/HCPCS: 99212 ==

== ENCOUNTER → 2025-01-14 23:59 | Outpatient (BNV) | payer MEDICARE, MEDICAID, SELFPAY ==
--- NOTE | 2025-01-26 12:10 | MHC.OFFVIS ---
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 Allergies No Known Allergies Allergy (Verified 01/20/25 10:25) PFSH Medical History Osteoarthritis History of blood transfusion PAF (paroxysmal atrial fibrillation) HTN (hypertension) (HFpEF) heart failure with preserved ejection fraction Ventricular tachycardia Anemia Acute pancreatitis Pancreatic pseudocyst Acute heart failure with preserved ejection fraction (HFpEF) Acute exacerbation of CHF (congestive heart failure) Morbid obesity Gastrointestinal bleeding History of cardioversion FARHEEN on CPAP Alcohol abuse Surgical History (Updated 01/20/25 @ 10:37 by Francine Landers RN) AICD (automatic cardioverter/defibrillator) present (~2022) Hx of cardiac catheterization (02/2023) History of left hip replacement (~2017) History of cardiac radiofrequency ablation (04/2024) History of esophagogastroduodenoscopy (EGD) (04/2024) Hx of colonoscopy (07/24/24) Status post ORIF of fracture of ankle Family History Mother HTN (hypertension) Diabetes mellitus Father Diabetes mellitus HTN (hypertension) Maternal Uncle Colon cancer Social History Household Members: Significant Other Household Members Other:: GF, daughter Housing: Apartment Are you a primary patient care to a significant other at home: No Do you presently have visiting nurse or other home services: No Alcohol intake: former Comment: pt prefer own socks Patient Tobacco Use Status: Never used Tobacco e-Cigarette/Vaping Use: Never Used Second Hand Smoke Exposure: No Substance Use Type: Marijuana Advance Directives Date on File: 01/25/21 service: No Current occupational status: retired Current occupation: rt handed Cognitive needs: No Hearing needs: No Vision needs: No Office Procedures Cardiac Device Check Cardiac Device Check Details: Date of service- 01/14/2025; based on impedance data and physiological variables, there is no evidence of worsening congestive heart failure. [id number] Cardiac Device Interrogation, cardio physiologic monitor Procedure code (CPT) selection complete Assessment & Plan Assessment & Plan (1) ICD (implantable cardioverter-defibrillator) in place: Code(s): Z95.810 - Presence of automatic (implantable) cardiac defibrillator Category: Medical (2) NICM (nonischemic cardiomyopathy): Code(s): I42.8 - Other cardiomyopathies Category: Medical Plan x Coding Level of Care Code Procedure Only Diagnoses ICD (implantable cardioverter-defibrillator) in place Z95.810 NICM (nonischemic cardiomyopathy) I42.8 CPT Codes Cardiac Device Check - Cardiac Device 15: [id number] Cardiac Device Interrogation, cardio physiologic monitor ([id number])
== END ==
PROVIDERS: Visit Provider Internal Medicine
DX: I42.8 Other cardiomyopathies (principal); Z95.810 Presence of automatic (implantable) cardiac defibrillator
CPT/HCPCS: 93297

== ENCOUNTER 2025-01-20 | Outpatient (REF) | payer MEDICARE, MEDICAID, SELFPAY ==
--- OUTSIDE RECORDS SUMMARY | 2024-12-20 09:54 | XMS_ITS | Encounter Summary ---
Author Organization [facility] Address [address] [place] [address] Care Team Providers Care Hardware Design Engineer Name Role Phone Cecy García MD Primary Care Provider [phone] Encounter Details Date Type Department Care Team Description 2019 Sign Letterer Report Medical Records [address] [place] [address] Ovi Benz MD [address] [place] [phone] Social History Tobacco Use Types Packs/Day Years [...] on filedocumented in this encounter Care Teams Hardware Design Engineer Relationship Specialty Start Date End Date Cecy García MD [address] [place] [address] PCP - General Internal Medicine 10/30/17 documented as of this encounter
[2025-01-20 10:27] VITALS: BP 117/71; PULSE 79; RESP 16; O2SAT 98; BMI 31.9
--- NOTE | 2025-01-20 10:45 | P.CONAN_ITS ---
HPI - Anesthesia Eval Consult details Narrative: 59yo M for Right Total Hip Arthroplasty, 02/25/25 Cardiac optimized. [facility] for htn, non-ischemic CMP, PAF s/p ablation 04/2024 (no anticoag), ICD in situ for ? Vtach vs Afib RVR with QRS widening. Last office visit 01/09/25 [facility] admit 12/2024 with SAUL/hypokalemia/dizziness - resolved with med changes. hosptal course: Patient presented with dizziness and found to have SAUL, and hypotension in setting multiple BP meds (takes Toprolol xl100 mg/d, aldactone 25/d, Lasix 40 mg/d, Valsartan 160 mg/d, Lisinopril 20/d). SAUL is due to renal hypoperfusion from hypotension d/t BP meds, and resulting in dizzinesss as well. He was managed with IVF, and holding BP meds. blood pressure is better and renal function is now normal, Cratine is 1.18. He was seen by Nephrology with recommendation to hold Valsartan and Lisinopril , he will resume metoprolol, lasix and aldactone and will follow up with nephrology on outaptient basis. FARHEEN with CPAP QHS ETOH none for ~ 3 weeks - no withdrawal symptoms PMFSH Active Problems Active Problems: All Active Problems Hospital discharge follow-up (Acute) Low vitamin B12 level (Acute) Dizziness (Acute) Pre-op evaluation (Acute) FARHEEN (obstructive sleep apnea) (Acute) Excessive daytime sleepiness (Acute) Fatigue due to sleep pattern disturbance (Acute) Preoperative cardiovascular examination (Acute) Olecranon bursitis of left elbow (Acute) Osteoarthritis of right hip (Acute) Right hip pain (Acute) Renita-Hernandez tear (Acute) Osteoarthritis of left ankle (Acute) Distal radius fracture, right (Acute) Distal radius fracture, left (Acute) Colon polyps (Acute) ICD (implantable cardioverter-defibrillator) in place (Acute) NICM (nonischemic cardiomyopathy) (Acute) Thrombus of left atrial appendage (Acute) Alcoholic fatty liver (Acute) PAF (paroxysmal atrial fibrillation) (Acute) (HFpEF) heart failure with preserved ejection fraction (Acute) HTN (hypertension) (Acute) Anemia (Acute) Acute pancreatitis (Acute) FARHEEN on CPAP (Acute) Past Medical History Medical History Osteoarthritis History of blood transfusion PAF (paroxysmal atrial fibrillation) HTN (hypertension) (HFpEF) heart failure with preserved ejection fraction Ventricular tachycardia Anemia Acute pancreatitis Pancreatic pseudocyst Acute heart failure with preserved ejection fraction (HFpEF) Acute exacerbation of CHF (congestive heart failure) Morbid obesity Gastrointestinal bleeding History of cardioversion FARHEEN on CPAP Alcohol abuse Family History Family History Mother HTN (hypertension) Diabetes mellitus Father Diabetes mellitus HTN (hypertension) Maternal Uncle Colon cancer Family history of problems with anesthesia: No Surgical History Surgical History AICD (automatic cardioverter/defibrillator) present (~2022) Hx of cardiac catheterization (02/2023) History of left hip replacement (~2017) History of cardiac radiofrequency ablation (04/2024) History of esophagogastroduodenoscopy (EGD) (04/2024) Hx of colonoscopy (07/24/24) Status post ORIF of fracture of ankle History of Problems with Anesthesia: No Social History Social History Household Members: Significant Other Household Members Other:: GF, daughter Housing: Apartment Are you a primary day care home provider to a significant other at home: No Do you presently have visiting nurse or other home services: No Alcohol intake: former Comment: pt prefer own socks Patient Tobacco Use Status: Never used Tobacco e-Cigarette/Vaping Use: Never Used Second Hand Smoke Exposure: No Substance Use Type: Marijuana Advance Directives Date on File: 01/25/21 service: No Current occupational status: retired Current occupation: rt handed Cognitive needs: No Hearing needs: No Vision needs: No Meds Allergies Allergy/AdvReac Type Severity Reaction Status Date / Time No Known Allergies Allergy Verified 02/14/25 14:07 Home Medications ?Medication ?Instructions ?Recorded ?Confirmed ?Last Taken ?Type melatonin 5 mg capsule 5 mg PO BEDTIME PRN insomnia 12/31/24 02/14/25 12/30/24 History omeprazole 20 mg capsule,delayed 20 mg PO DAILY@0630 0 12/31/24 02/14/25 12/31/24 History release amiodarone 200 mg tablet 200 mg PO DAILY 01/27/2508/10 Unknown History Exam Height,Weight and Vital Signs: Height 6 ft 3 in Weight 115.666 kg Last Vital Signs Pulse 79 01/20/25 10:27 Resp 16 01/20/25 10:27 BP 117/71 01/20/25 10:27 Pulse Ox 98 01/20/25 10:27 O2 Del Method Room Air 01/20/25 10:27 Narrative Narrative: EKG 12/2024 Vent. Rate : 65 BPM Atrial Rate : 65 BPM P-R Int : 196 ms QRS Dur : 74 ms QT Int : 374 ms P-R-T Axes : 62 -4 25 degrees QTcB Int : 388 ms Normal sinus rhythm Normal ECG When compared with ECG of 31-Dec-2024 11:47, No significant change was found Cardiac Device Check Details: Date of service 12/31/2024; Battery life >12years; normal lead parameters; no treated VT/VF; normal ICD function. Cardiac Device Check Details: Date of service- 01/14/2025; based on impedance data and physiological variables, there is no evidence of worsening congestive heart failure. ECHO 08/2024 Conclusions: - 1. Normal LV ejection fraction of 55-60% with mild LVH with impaired relaxation filling pattern 2. Moderately dilated right ventricle with preserved contractile function 3. Moderate biatrial enlargement 4. Cardiac valvular Dopplers within normal limits 5. Normal measured RV systolic pressure 6. Mildly dilated ascending aorta at 4 cm 7. No gross pericardial effusion Airway Mallampati Class: III TM Dist: >3cm Neck ROM: Full Loose/Missing/Broken Teeth: Yes (Missing molar, crowned left molar) Heart: RRR Lungs: CTAB Assessment and Plan Assessment Anesthesia Assessment: Anesthesia Plan Discussed and PAT Visit Final Anesthetic Review Family History of Problems with Anesthesia: No History of Problems with Anesthesia: No
[2025-01-20 12:29] LABS: MRSA Nasal PCR NEGATIVE (Negative); SA Nasal PCR POSITIVE (Negative)
--- OUTSIDE RECORDS SUMMARY | 2025-03-19 12:19 | XMS_ITS | Encounter Summary ---
Author Organization [facility] Address [address] [place] [address] Care Team Providers Care Railroad Inspector Name Role Phone Unavailable Primary Care Provider Unavailabl e Reason for Visit * Reason Comments Med Change Request Encounter Details Date Type Department Care Team (Late st Contact Info) Description 03/23/2023 Refill [facility] [place] [address] [facility], [place], [place] [id number] Santi Mirza MD [address] [facility] [address] [place] [address] Med Change Request Social History [...] living situation today? I have a [facility] place to live 02/20/2023 Interpersonal Safety Answer [...]
--- OUTSIDE RECORDS SUMMARY | 2025-03-19 12:19 | XMS_ITS | Clinical Summary ---
Author Organization [facility] Address [id number] [place] [address] Care Team Providers Care Veterinarian Name Role Phone Cecy García MD Primary Care Provider [phone] Active Problems Problem Noted Date Diagnosed Date Hypertension 06/10/2019 Bilateral knee pain 01/18/2018 Surgical History Surgery Date Site/Laterality Comments ANKLE FRACTURE SURGERY PROCEDURE: [place] OPEN TREATMENT MEDIAL MALLEOLUS FRACTURE KNEE ARTHROSCOPY W/ MENISCAL REPAIR PROCEDURE: [place] ARTHROSCOPY KNEE W/MENISCUS RPR MEDIAL/LATERAL Family History [...] Result * Hepatitis C Screening (10/15/2023) Pathologist [facility] Hepatitis C Screening abstracted us Historical Provider [...] Recently Relevant to Health Maintenance Care Teams Veterinarian Relationship Specialty Start Date End Date Cecy García MD [address] [place] [address] PCP - General Internal Medicine 10/30/17
--- OUTSIDE RECORDS SUMMARY | 2025-03-19 12:19 | XMS_ITS | Clinical Summary ---
Author Organization [facility] Address [address] [address] Phone Care Team Providers Care Business Process Manager Name Role Phone VincentRodrick, Lisaporfirio Ayala PETROLEUM GEOLOGIST Primary Care Prov ider Amarjit Roberto MD Unavailable [phone] Fabricio Chaudhary MD Unavailable [phone] Allergies No known active allergies Medications amiodarone [...] episodes. 1% A-fib burden. No parameter changes. ACCOUNTS RECEIVABLE CLERK 4.1%. Plan: Continue remote checks Follow-up in [...] OAC. This was discontinued by his primary detonator assembler. If he has an increase in overall burden, will reinstitute oral anticoagulation. Patient had labs done recently with his primary care doctor and detonator assembler. I will request these records. Will assess [...] Description 01/22/2025 11:30 AM EDT Office Visit [facility] [address] [place] [address] 3rd Floor, [address] [place] [address] Preet Spencer MD Muse, Hannah, DNP Persistent [...] Description 08/01/2025 10:20 AM EST Office Visit [facility] [address]rd Floor, [address] [place] [address] Preet Spencer MD [address] [place] [address] Health Maintenance Due Date Last Done Comments [...] topic Medical Devices Not on file Insurance [employer] MEDICARE PART A & [place] [address] [place] [address] MEDICARE PART A & [place] & B Care Teams Business Process Manager Relationship Specialty Start Date End Date Lisa Heard FNP [address] [place] [address] [address] [place] [address] PCP - General Family Medicine 06/17/24 Amarjit Roberto MD [address] [place] [address] [address] [place] [address] Orthopedic Surgery 01/22/25 Fabricio Chaudhary MD [address] [place] [address] [address] [place] [address] Cardiology 01/22/25 Additional Source Comments The information contained in this document represents components of the legal health record. It is not the complete legal health record.[facility]
--- OUTSIDE RECORDS SUMMARY | 2025-03-19 12:19 | XMS_ITS | Encounter Summary ---
Author Organization [facility] Address [address] [place] [address] Care Team Providers Care Vacuum Cooker Operator Name Role Phone Unavailable Primary Care Provider Unavailabl e Reason for Visit * Reason Comments Medication Refill Encounter Details Date Type Department Care Team (Late st Contact Info) Description 04/14/2024 Refill [facility] [place] [address] [facility], [address], [place] [id number] Santi Mirza MD [address] [facility] [address] [address] Medication Refill Social History Tobacco [...] your living situation today? I have a [facility] place to live 02/20/2023 Interpersonal Safety [...]
--- OUTSIDE RECORDS SUMMARY | 2025-03-19 12:19 | XMS_ITS | Clinical Summary ---
Author Organization [facility] Address [address] [place] [address] Care Team Providers Care City Comptroller Name Role Phone Cecy García Primary Care Provider [phone] Allergies No known active allergies Medications amiodarone [...] to have alisha-duodenal hematoma so transferred to [facility]. With hypotension and lactic acidosis initially improved after 2 units of PRBCs. CTA at [facility] showed large hematoma involving the [...] to have alisha-duodenal hematoma so transferred to [facility]. With hypotension and lactic acidosis [...] PM EDT): Patient had prior admission to [place] in February of last year where he [...] During his admission in February 2023 at [place] he had alcohol withdrawal through day 5 [...] PM EDT): Status post 2 cardioversions at [place]. Continue with Eliquis. Continue with amiodarone for [...] elevation and prior normal colonoscopy reported at [facility] 8 years ago warranting return for [...] in place. Patient had prior admission to [place] in February of last year where he [...] 2017 Zoster Vaccines (1 of 2) 2017 Alcohol/Substance Use Screening 07/17/2024 Depression Screening and Follow-Up 07/17/2024 Social Drivers of Health Justina ual Screening 07/17/2024 Basic Metabolic Panel 01/09/2025 01/10/2024 , 01/09/2024, 01/08/2024, Additional history exists COVID-19 Vaccine (1 - 2023-2 5 season) 2025 Influenza Vaccine (#1) 2025 04/14/2020, 2019 DTaP,Tdap,and Td Vaccines (3 - Tdap) 01/08/2026 01/09/2016, 01/31/2007 Colon Cancer Screening 01/08/2034 Colonoscopy 01/08/2034 01/09/2024, 12/16, 01/09/2024 RSV Vaccine (60+ years old a nd patients) (1 - 1-dose 75+ series) 2042 Tobacco Screening 07/17/2042 01/09/2024 Medical Devices Implanted Type Area Insurance Loss Adjuster Device Identifier Shelf Expiration Date Model / Serial / Lot Soft 4x30 Embold - [id number] Implanted:Qty: 1 on 10/15/2023 at [facility] Implant Wing-Wheel Angel [employer] [id number] 05/23/2026 [id number] / / [id number] Soft 4x30 Embold - [id number] Implanted:Qty: 1 on 10/15/2023 by Jeffrey Srivastava MD at [facility] Implant Wing-Wheel [employer] [id number] 03/08/2024 [id number] / / [id number] Soft 5x30 Embold - [id number] Implanted:Qty: 1 on 10/15/2023 by Jeffrey Srivastava MD at [facility] Implant Grayson Bustle [id number] / / Coil Embolization Fibered Detachable Us 5x15 Embold - [id number] Implanted:Qty: 1 on 10/15/2023 by Jeffrey Srivastava MD at [facility] Implant Grayson [employer] [id number] / / Device Closure Vascular Plug 6fr Angio-Seal Vip - [id number] Implanted:Qty: 1 on 10/15/2023 by Jeffrey Srivastava MD at [facility] Implant Right: Groin [employer] [id number] 06/18/2024 [id number] / / [id number] Procedures * Due to [place] state law, this organization might not be sharing negative HIV tests. Procedure Name Priority Date/Time Associated Diagnosis Comments COMPREHENSIVE METABOLIC PANEL Routine 01/10/2024 5:49 AM EDT COLONOSCOPY 01/09/2024 from Last 3 Months or Most Recently Relevant to Health Maintenance Results * Due to [place] state law, this organization might not be sharing negative HIV tests. * (ABNORMAL) Comprehensive metabolic panel (01/10/2024 5:49 AM EDT) NA 139 135 - 145 mmol/L 01/10/2024 8:46 AM EDT [facility] K 3.4(L) 3.5 - 5.3 mmol/L 01/10/2024 8:46 AM EDT [facility] Cl 103 98 - 107 mmol/L 01/10/2024 8:46 AM EDT [facility] CO2 26 24 - 32 mmol/L 01/10/2024 8:46 AM EDT [facility] Anion Gap 10 5 - 15 01/10/2024 8:46 AM EDT [facility] Glucose 89 65 - 99 mg/dL 01/10/2024 8:46 AM EDT [facility] Creatinine 0.86 0.60 - 1.30 mg/dL 01/10/2024 8:46 AM EDT [facility] Calcium 8.5(L) 8.6 - 10.5 mg/dL 01/10/2024 8:46 AM EDT [facility] Total Protein 5.8(L) 6.0 - 8.0 g/dL 01/10/2024 8:46 AM EDT [facility] Albumin 3.4(L) 3.5 - 5.2 g/dL 01/10/2024 8:46 AM EDT [facility] Bilirubin, Total 0.4 0.2 - 1.2 mg/dL 01/10/2024 8:46 AM EDT [facility] Alkaline Phosphatase 65 35 - 129 U/L 01/10/2024 8:46 AM EDT [facility] AST 14 10 - 40 U/L 01/10/2024 8:46 AM EDT [facility] ALT 13 10 - 40 U/L 01/10/2024 8:46 AM EDT [facility] BUN 7 7 - 23 mg/dL 01/10/2024 8:46 AM EDT [facility] eGFR >90 >=60 mL/min/1. 73m2 01/10/2024 8:46 AM EDT [facility] Comment:The estimated glomer [...] - 4.2 g/dL 01/10/2024 8:46 AM EDT [facility] A/G Ratio 1.4(L) 1.5 - 3.0 01/10/2024 8:46 AM EDT [facility] Blood Structure of peripheral vein / Unknown Venipuncture / Unknown 01/10/2024 5:49 AM EDT 01/10/2024 7:58 AM EDT us Arturo Perez MD LAB BLOOD ORDERABLES Final Result [facility] [address] [place] [address], * COLONOSCOPY (01/09/2024) Narrative Procedure Note Leah Correa MD - 01/09/2024 10:13 AM EDT [facility] Gastroenterology Patient Name: Nitesh Osorio Procedure Date: 01/09/2024 10:13 AM Date of : 1965 Admit Type: Inpatient Age: 58 Room: [place] [address] Gender: Male Note Status: Finalized Attending MD: [...] Most Recently Relevant to Health Maintenance Insurance [facility] Advance Directives Documents on File Type Date Recorded Patient Vest Busheler Expl anation Health Care Proxy 10/17/2023 9:51 [...] ( Lue ) Devon Sister Alternate [facility] Care Agent Care Teams City Comptroller Relationship Specialty Start Date End Date Cecy García PCP - General Internal Medicine 10/27/23
--- OUTSIDE RECORDS SUMMARY | 2025-03-19 12:19 | XMS_ITS | Encounter Summary ---
Author Organization [facility] Address [address] [place] [address] Care Team Providers Care Digital Publishing Specialist Name Role Phone Unavailable Primary Care Provider Unavailabl e Encounter Details Date Type Department Care Team (Late st Contact Info) Description 03/22/2023 Scanned Document [facility] [place] [address] [facility], [address], [place] [address] Provider, Historical . Social History Tobacco Use [...] your living situation today? I have a [facility] place to live 02/20/2023 Interpersonal Safety [...]
--- OUTSIDE RECORDS SUMMARY | 2025-03-19 12:19 | XMS_ITS | Encounter Summary ---
Author Organization [facility] Address [address] [place] [address] Care Team Providers Care Dental Internship Name Role Phone Unavailable Primary Care Provider Unavailabl e Reason for Visit * Reason Comments Medication Refill Encounter Details Date Type Department Care Team (Late st Contact Info) Description 04/14/2023 Refill [facility] [place] [address] [facility], [address], [place] [id number] Santi Mirza MD [address] [facility] [address] [address] Medication Refill Social History Tobacco [...] your living situation today? I have a [facility] place to live 02/20/2023 Interpersonal Safety [...]
--- OUTSIDE RECORDS SUMMARY | 2025-03-19 12:19 | XMS_ITS | Clinical Summary ---
Author Organization [facility] [address] [facility] Address [address] [place] [address] Phone Care Team Providers Care Band Saw Operator Cake Cutting Name Role Phone Unavailable Primary Care Provider [...] your living situation today? I have a [facility] place to live 02/20/2023 Interpersonal Safety [...] 2017 Covid-19 vaccine series ( - season) 2025 Influenza vaccine 03/17/2025 Diabetes screening 02/21/2026 02/21/2023, 0 02/20/2023, 02/19/2023, Additional history exists RSV Immunization (1 - 1-dose 75+ series) 2042 Meningococcal B Vaccine Aged Out No l onger eligible based on patient's age to complete this topic Meningococcal Vaccine Aged Out No socorro mick eligible based on patient's age to complete this topic Medical Devices Implanted Type Area Forest Pathologist Device Identifier Shelf Expiration Date Model / Serial / Lot Lead Sprint Quattro [id number] - [id number] Implanted:Qty: 1 on 02/21/2023 by Justus Beyer MD at [facility] [address] Implant Right: VENTRICLE [employer] 11/24/2024 [id number] / [id number] V / [id number] V Envelope Absorbable Antibacterial [id number] - [id number] Implanted:Qty: 1 on 02/21/2023 by Justus Beyer MD at [facility] [address] Implant Left: Chest Wall [employer] 11/26/2023 [id number] / / [id number] Icd Ogden Mri Vr Single Df4 - [id number] Implanted:Qty: 1 on 02/21/2023 by Justus Beyer MD at [facility] [address] Implant Left: Chest [employer] 07/13/2024 [id number] / [id number] / [id number] Procedures Procedure Name Priority Date/Time Associated Diagnosis Comments BASIC METABOLIC PANEL Routine 02/21/2023 6:10 AM EDT from Last 3 Months or Most Recently Relevant to Health Maintenance Results * Basic metabolic panel (02/21/2023 6:10 AM EDT) [facility] Glucose 79 65 - 110 mg/dL 02/21/2023 6:50 AM EDT [facility] Comment: Non-fastin-110 mg/dL Fasting (minimum 6 hrs): 65-99 mg/dL BUN 10 7 - 18 mg/dL 02/21/2023 6:[address] [facility] Creatinine 0.89 0.70 - 1.30 mg/dL 02/21/2023 6:[address] [facility] Sodium 138 136 - 145 mmol/L 02/21/2023 6:[address] [facility] Potassium 4.2 3.5 - 5.1 mmol/L 02/21/2023 6:[address] [facility] Comment:Specimen slightly he molyzed. Chloride 104 98 - 107 mmol/L 02/21/2023 6:[address] [facility] CO2 27 21 - 32 mmol/L 02/21/2023 6:[address] [facility] Anion Gap 7 5 - 15 mmol/L 02/21/2023 6:[address] [facility] Calcium 9.4 8.5 - 10.1 mg/dL 02/21/2023 6:[address] [facility] eGFR (Creatinine) >60 >=60 mL/min/1.7 3m2 02/21/2023 6:[address] [facility] Comment: Values < 60 mL/min/1.73 m2 may indicate CKD if present for more than three months AND creatinine is at steady state. The eGFR provides a rough estimate of kidney function. On 03/01/22 all [facility] Clinical Labs and Epic began using a gle-byfp-yprgm formula for estimating GFR called CKD-EPI Creatinine 2020. This equation reports eGFR based on creatinine, patient age, clinical sex, and is standardized to a body surface area of 1.73 m2. For the same creatinine, this new race-free eGFR will be lower than prior reported Black eGFR results and higher than prior Non-Black eGFR results. For further guidance, please refer to the CKD: Adult Field Account Manager Signature pathway. Blood Venipuncture / Unknown 02/21/2023 6:10 AM EDT 02/21/2023 6:22 AM EDT us Alessandro Og MD LAB BLOOD ORDERABLES Final Result [facility] [address] [place] [address] from Last 3 Months or Most Recently Relevant to Health Maintenance Insurance [facility] MEDICARE [facility] MEDICARE [facility] MEDICARE Advance Directives * Full Code (Latest Code Status on File) Date Activated Date Inactivated Comments 02/19/2023 1:39 AM 02/23/2023 7:02 PM
== END 2025-01-20 00:01 | disposition home or self-care (01) ==
LOC: HO.PAT
PROVIDERS: Physician Assistant; Visit Provider Orthopaedic Surgery
DX: Z01.812 Encounter for preprocedural laboratory examination (principal); M16.11 Unilateral primary osteoarthritis, right hip; Z11.2 Encounter for screening for other bacterial diseases
CPT/HCPCS: 87640; 87641

== ENCOUNTER → 2025-02-06 09:04 | Outpatient (BNVA) | payer MEDICARE, MEDICAID, SELFPAY | DX: Z01.818 Encounter for other preprocedural examination (principal) ==

== ENCOUNTER → 2025-02-13 23:59 | Outpatient (BNV) | payer MEDICARE, MEDICAID, SELFPAY ==
--- NOTE | 2025-02-24 14:07 | A.OFFVIS_ITS ---
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 Allergies No Known Allergies Allergy (Verified 02/14/25 14:07) PFSH Medical History Osteoarthritis History of blood transfusion PAF (paroxysmal atrial fibrillation) HTN (hypertension) (HFpEF) heart failure with preserved ejection fraction Ventricular tachycardia Anemia Acute pancreatitis Pancreatic pseudocyst Acute heart failure with preserved ejection fraction (HFpEF) Acute exacerbation of CHF (congestive heart failure) Morbid obesity Gastrointestinal bleeding History of cardioversion FARHEEN on CPAP Alcohol abuse Surgical History AICD (automatic cardioverter/defibrillator) present (~2022) Hx of cardiac catheterization (02/2023) History of left hip replacement (~2017) History of cardiac radiofrequency ablation (04/2024) History of esophagogastroduodenoscopy (EGD) (04/2024) Hx of colonoscopy (07/24/24) Status post ORIF of fracture of ankle Family History Mother HTN (hypertension) Diabetes mellitus Father Diabetes mellitus HTN (hypertension) Maternal Uncle Colon cancer Social History Household Members: Significant Other Household Members Other:: GF, daughter Housing: Apartment Are you a primary special needs caregiver to a significant other at home: No Do you presently have visiting nurse or other home services: No Alcohol intake: former Comment: pt prefer own socks Patient Tobacco Use Status: Never used Tobacco e-Cigarette/Vaping Use: Never Used Second Hand Smoke Exposure: No Use of substances other than those prescribed or required for medical reasons: Yes Substance Use Type: Marijuana Substance Use Frequency: Daily Have you been hit, kicked, punched, or otherwise hurt by someone within the past year? If so, by whom?: No Are you DNR?: No Advance Directives: Yes Advance Directives Information Provided: No Advance Directives on File: Yes Advance Directives Date on File: 01/25/21 Poor oral hygiene: No service: No Current occupational status: retired Current occupation: rt handed Cognitive needs: No Hearing needs: No Vision needs: No Office Procedures Cardiac Device Check Cardiac Device Check Details: Date of service 02/13/2025; Battery life >12 years; normal lead parameters; no treated VT/VF; normal ICD function. [id number] Cardiac Interrogation, implant defibrillator w/interim Procedure code (CPT) selection complete Assessment & Plan Assessment & Plan (1) ICD (implantable cardioverter-defibrillator) in place: Code(s): Z95.810 - Presence of automatic (implantable) cardiac defibrillator Category: Medical (2) NICM (nonischemic cardiomyopathy): Code(s): I42.8 - Other cardiomyopathies Category: Medical (3) PAF (paroxysmal atrial fibrillation): Code(s): I48.0 - Paroxysmal atrial fibrillation Category: Medical Plan x Coding Level of Care Code Procedure Only Diagnoses ICD (implantable cardioverter-defibrillator) in place Z95.810 NICM (nonischemic cardiomyopathy) I42.8 PAF (paroxysmal atrial fibrillation) I48.0 CPT Codes Cardiac Device Check - Cardiac Device 13: [id number] Cardiac Interrogation, implant defibrillator w/interim ([id number])
== END ==
PROVIDERS: Visit Provider Internal Medicine
DX: I42.8 Other cardiomyopathies (principal); Z95.810 Presence of automatic (implantable) cardiac defibrillator; I48.0 Paroxysmal atrial fibrillation
CPT/HCPCS: 93295

== ENCOUNTER 2025-02-14 14:04 | Outpatient (AMB) | payer MEDICARE, MEDICAID, SELFPAY ==
--- NOTE | 2025-02-14 14:04 | MHC.PC.OV ---
Vital Signs 02/14/25 14:06 02/14/25 14:27 Height 6 ft 3 in Weight 236 lb 2 oz BMI 29.5 BP 136/90 H 112/84 Blood Pressure Location Lt brachial Rt brachial Position Sitting Sitting Pulse 89 Pulse Source Pulse Oximeter Temp Source Temporal Artery Scan Pulse Oximetry (%) 98 Oxygen Delivery Method Room Air Intake Visit Reasons: re eval right hip replacement 02/25 Shipping And Receiving Material Handler Required: No Accompanied by: Self / Same As Patient Allergies No Known Allergies Allergy (Verified 02/14/25 14:07) Medication List - Last Reconciled 02/14/25 by Liliane Mata PA-C amiodarone 200 mg PO DAILY blood pressure monitor (Blood Pressure Kit) As directed celecoxib (Celebrex) 200 mg PO BID PRN cholecalciferol (vitamin D3) 50 mcg PO DAILY 90 days empagliflozin (Jardiance) 10 mg PO DAILY [Folding Front Wheeled walker Duration: 99 days] furosemide 40 mg PO DAILY mecobalamin (vitamin B12) 1,000 mcg sublingual BEDTIME 90 days MDD 1000mcg melatonin 5 mg PO BEDTIME PRN metoprolol succinate ER (Toprol XL) 100 mg PO DAILY miscellaneous medical supply (Blood Pressure Cuff) As directed omeprazole 20 mg PO DAILY@0630 spironolactone 25 mg See Protocol PO DAILY Tobacco use date assessed: 02/14/25 Dental Screening Dental Screen Date: 02/14/25 Did you have a dental visit in the last 12 months?: Yes Did you have a dental problem in the last 6 months where you did not have access to dental care?: No Was dental information given to patient?: Patient declined HPI re eval right hip replacement 02/25 HPI Details 59-year-old male with past medical history of hypertension, alcohol use disorder, atrial fibrillation on Eliquis, ICM with pacemaker, heart failure with preserved ejection fraction and history of GI bleed last seen back coming in for preoperative exam.?Patient is scheduled to undergo right total hip with Dr. Roberto 02/25/2025. He is also scheduled for cardiac clearance 02/17/2025. Atrial fibrillation:? Rate control with metoprolol no longer taking Eliquis Hypertension: Blood pressure at goal today PFSH Medical History Osteoarthritis History of blood transfusion PAF (paroxysmal atrial fibrillation) HTN (hypertension) (HFpEF) heart failure with preserved ejection fraction Ventricular tachycardia Anemia Acute pancreatitis Pancreatic pseudocyst Acute heart failure with preserved ejection fraction (HFpEF) Acute exacerbation of CHF (congestive heart failure) Morbid obesity Gastrointestinal bleeding History of cardioversion FARHEEN on CPAP Alcohol abuse Surgical History AICD (automatic cardioverter/defibrillator) present (~2022) Hx of cardiac catheterization (02/2023) History of left hip replacement (~2018) History of cardiac radiofrequency ablation (04/2024) History of esophagogastroduodenoscopy (EGD) (04/2024) Hx of colonoscopy (07/24/24) Status post ORIF of fracture of ankle Family History Mother HTN (hypertension) Diabetes mellitus Father Diabetes mellitus HTN (hypertension) Maternal Uncle Colon cancer Social History Household Members: Significant Other Household Members Other:: GF, daughter Housing: Apartment Are you a primary emergency care tech to a significant other at home: No Do you presently have visiting nurse or other home services: No Alcohol intake: former Comment: pt prefer own socks Patient Tobacco Use Status: Never used Tobacco e-Cigarette/Vaping Use: Never Used Second Hand Smoke Exposure: No Substance Use Type: Marijuana Advance Directives Date on File: 01/25/21 service: No Current occupational status: retired Current occupation: rt handed Cognitive needs: No Hearing needs: No Vision needs: No Questionnaire Thrive Questionnaire Date Thrive assessed: 02/14/25 DIEUDONNE-7 AMB Questionnaire DIEUDONNE-7 Date DIEUDONNE - 7 assessed: 02/14/25 Source: Developed by Drs. Ace Beckwith, Evelyne Ramirez, Carlos Garcia and colleagues, with an educational yaz from [employer]. Review of Systems Const Denies body aches, Denies chills, Denies fever(s), Denies headache(s) and Denies poor appetite Eyes Reports no additional complaints ENT Denies dizziness and Denies headache(s) Card Denies chest pain, Denies syncope, Denies edema, Denies irregular heart rhythm, Denies lightheadedness and Denies dyspnea Resp Denies cough and Denies dyspnea GI Denies abdominal pain, Denies constipation, Denies diarrhea, Denies nausea and Denies vomiting Denies dysuria and Denies urinary frequency Musc Reports no additional complaints and Denies abnormal gait Skin/Breast Reports system reviewed and no additional complaints, except as documented Neuro Denies abnormal gait, Denies dizziness, Denies syncope and Denies headache(s) Psych Reports no additional complaints Physical exam (Primary Care) Vital Signs: Last Vital Signs Pulse 89 02/14/25 14:06 BP 112/84 02/14/25 14:27 Pulse Ox 98 02/14/25 14:06 Oxygen Delivery Method Room Air 02/14/25 14:06 BMI result Body Mass Index 29.5 Tobacco/Smoking Status: Tobacco use Status Tobacco use date assessed 02/14/25 02/14/25 14:07 Patient Tobacco Use Status Never used Tobacco 02/14/25 14:05 Tobacco use type 01/21/25 14:25 e-Cigarette/Vaping Use Never Used 02/14/25 14:05 Thrive Assessment: Date of Thrive Assessment Date Thrive assessed 02/14/25 02/14/25 14:09 Const General: cooperative, healthy appearing, comfortable and no acute distress Orientation/consciousness: patient oriented x3 HENMT Head: Yes normocephalic Ears: hearing grossly normal bilaterally General nose exam: Normal external nose present Eyes General: appearance normal, both eyes and all related structures Conjunctivae: conjunctivae normal Neck Neck: Yes full ROM and Yes no lymphadenopathy Resp Effort & Inspection: normal respiratory effort Auscultation: clear to auscultation bilaterally, no crackles, no rales, no rhonchi and no wheezes Cardio Rate: regular rate Rhythm: regular rhythm Skin General skin exam: no rashes or lesions noted Neuro General: patient oriented x3 Gait exam (Neuro): Normal gait present Extrem General: Yes normal to inspection, Yes full ROM and No edema Psych Affect: normal affect Attitude: cooperative Insight: Good insight present (Psych) Judgement: Good judgement present (Psych) Coding Level of Care Code Est Pt Level 3 (60643) Diagnoses Pre-op evaluation Z01.818 Assessment & Plan Assessment & Plan (1) Pre-op evaluation: Code(s): Z01.818 - Encounter for other preprocedural examination Category: Medical Plan: Regarding preop clearance, the patient is at moderate risk for proposed surgery due to age and comorbidities. Reviewed with the patient that no surgery is completely free of risk and that this examination is to assist the surgeon in reviewing informed consent. Patient advised may take all of his medications up until the day of the procedure with the exception of Jardiance which must be stopped 4 days prior to procedure. EKG and blood work evaluated. No further workup needed at this time and may proceed with the contemplated procedure from primary care standpoint. Evaluation pending cardiology clearance. Thank you very much for letting me participate in the care of this patient Plan This note was constructed using voice recognition software. While every effort has been made to ensure accuracy and washer hand, still areas may have been included sometimes these areas may affect the content or meeting of the given symptoms. Total time spent caring for the patient today was 20 minutes. This includes time spent before the visit reviewing the chart, time spent during the visit, and time spent after the visit and documentation.
[2025-02-14 14:06] VITALS: BP 136/90; PULSE 89; O2SAT 98; BMI 29.5
--- OUTSIDE RECORDS SUMMARY | 2025-02-14 14:07 | XMS_ITS | Clinical Summary ---
Author Organization [facility] Address [id number] [place] [id number] Care Team Providers Care Bronzer Name Role Phone Cecy García MD Primary Care Provider [phone] Active Problems Problem Noted Date Diagnosed Date Hypertension 06/10/2019 Bilateral knee pain 01/18/2018 Surgical History Surgery Date Site/Laterality Comments ANKLE FRACTURE SURGERY PROCEDURE: [place] OPEN TREATMENT MEDIAL MALLEOLUS FRACTURE KNEE ARTHROSCOPY W/ MENISCAL REPAIR PROCEDURE: [place] ARTHROSCOPY KNEE W/MENISCUS RPR MEDIAL/LATERAL Family History [...] 2017 Zoster Vaccines (1 of 2) 2017 HIV Screening 06/25/2022 Social Influencers of Health Screening 06/25/2022 Cholesterol Screening (Lipid Panel) 03/13/2024 03/13/2019 COVID-19 Vaccine (1 - 2023-2 5 season) 2024 Depression Screening 07/17/2024 Hypertension/CHF/CAD Annual BMP Blood Test 01/09/2025 01/10/2024 Influenza Vaccine (#1) 2025 Colorectal Cancer Screening: Colonoscopy 11/19/2028 11/19/2018 [...] Final Result * Hepatitis C Screening (10/15/2023) Hepatitis C Screening abstracted us Historical Provider HEALTH MAINTENANCE Final Result * (ABNORMAL) Lipid panel (03/13/2019) LDL/HDL Ratio 3 0 - 4 Triglycerides 54 0 - 150 mg/dL Cholesterol 189 0 - 200 mg/dL HDL 57 >=40 mg/dL LDL Cholesterol 122(A) 0 - 100 mg/dL Blood Venous blood specimen / Unknown Historical Provider LAB BLOOD ORDERABLES Lore l Result * Hm Colonoscopy (11/19/2018) Colonoscopy normal, abstracted Anatomical Region Laterality Modality Other Historical Provider HEALTH MAINTENANCE Final Result from Last 3 Months or Most Recently Relevant to Health Maintenance Care Teams Bronzer Relationship Specialty Start Date End Date Cecy García MD [address] [place] [address] PCP - General Internal Medicine 10/30/17
--- OUTSIDE RECORDS SUMMARY | 2025-02-14 14:07 | XMS_ITS | Referral Summary ---
Author Organization [facility] Address [address] [place] [address] Care Team Providers Care Risk Intern Name Role Phone Cecy García Primary Care Provider Allergies No known active allergies Medications amiodarone [...] after 2 units of PRBCs. CTA at [facility] showed large hematoma involving the second [...] PM EDT): Patient had prior admission to [facility] in February of last year where he [...] During his admission in February 2023 at [facility] he had alcohol withdrawal through day 5 [...] PM EDT): Status post 2 cardioversions at [place]. Continue with Eliquis. Continue with amiodarone for [...] prior normal colonoscopy reported at [facility] 8 years ago warranting return for [...] in place. Patient had prior admission to [facility] in February of last year where he [...] 67 01/10/2024 1:00 PM EDT Temperature 37.3 C (99.1 F) 01/10/2024 1:00 PM EDT Respiratory Rate 18 01/10/2024 1:00 PM EDT [...] Rectal polyp Medical Devices Implanted Type Area Investigator Claims Device Identifier Shelf Expiration Date Model / Serial / Lot Soft 4x30 Embold - [id number] Implanted:Qty: 1 on 10/15/2023 at [facility] Implant [employer] [id number] 05/23/2026 [id number] / / [id number] Soft 4x30 Embold - [id number] Implanted:Qty: 1 on 10/15/2023 by Jeffrey Srivastava MD at [facility] Implant [employer] [id number] 03/08/2024 [id number] / / [id number] Soft 5x30 Embold - [id number] Implanted:Qty: 1 on 10/15/2023 by Jeffrey Srivastava MD at [facility] Implant [facility] [id number] / / Coil Embolization Fibered Detachable Us 5x15 Embold - [id number] Implanted:Qty: 1 on 10/15/2023 by Jeffrey Srivastava MD at [facility] Implant [facility] [id number] / / Device Closure Vascular Plug 6fr Angio-Seal Vip - [id number] Implanted:Qty: 1 on 10/15/2023 by Jeffrey Srivastava MD at [facility] Implant Right: Groin [employer] [id number] 06/18/2024 [id number] / / [id number] Procedures * Due to [place] Reflectance Medical law, this organization might not be sharing negative HIV tests. Procedure Name Priority Date/Time Associated Diagnosis Comments COMPREHENSIVE METABOLIC PANEL Routine 01/10/2024 5:49 AM EDT COLONOSCOPY 01/09/2024 from Last 3 Months or Most Recently Relevant to Health Maintenance Results * Due to [place] Reflectance Medical law, this organization might not be sharing negative HIV tests. * (ABNORMAL) Comprehensive metabolic panel (01/10/2024 5:49 AM EDT) NA 139 135 - 145 mmol/L 01/10/2024 8:46 AM EDT [facility] K 3.4(L) 3.5 - 5.3 mmol/L 01/10/2024 8:46 AM EDT [facility] Cl 103 98 - 107 mmol/L 01/10/2024 8:46 AM EDT [facility] CO2 26 24 - 32 mmol/L 01/10/2024 8:46 AM EDT [facility] Anion Gap 10 5 - 15 01/10/2024 8:46 AM EDT [facility] Glucose 89 65 - 99 mg/dL 01/10/2024 8:46 AM EDT [facility] Creatinine 0.86 0.60 - 1.30 mg/dL 01/10/2024 8:46 AM EDT [facility] Calcium 8.5(L) 8.6 - 10.5 mg/dL 01/10/2024 8:46 AM EDT [facility] Total Protein 5.8(L) 6.0 - 8.0 g/dL 01/10/2024 8:46 AM EDT [facility] Albumin 3.4(L) 3.5 - 5.2 g/dL 01/10/2024 8:46 AM EDT [facility] Bilirubin, Total 0.4 0.2 - 1.2 mg/dL 01/10/2024 8:46 AM EDT [facility] Alkaline Phosphatase 65 35 - 129 U/L 01/10/2024 8:46 AM EDT [facility] AST 14 10 - 40 U/L 01/10/2024 8:46 AM EDT [facility] ALT 13 10 - 40 U/L 01/10/2024 8:46 AM EDT [facility] BUN 7 7 - 23 mg/dL 01/10/2024 8:46 AM EDT [facility] eGFR >90 >=60 mL/min/1. 73m2 01/10/2024 8:46 AM EDT [facility] Comment:The estimated glomer ular [...] - 4.2 g/dL 01/10/2024 8:46 AM EDT [facility] A/G Ratio 1.4(L) 1.5 - 3.0 01/10/2024 8:46 AM EDT [facility] Blood Structure of peripheral vein / Unknown Venipuncture / Unknown 01/10/2024 5:49 AM EDT 01/10/2024 7:58 AM EDT us Arturo Perez MD LAB BLOOD ORDERABLES Final Result [facility] [address] [place] [address], [place] * COLONOSCOPY (01/09/2024) Narrative Procedure Note Leah Correa MD - 01/09/2024 10:13 AM EDT [facility] Gastroenterology Patient Name: Nitesh Osorio Procedure Date: 01/09/2024 10:13 AM Date of : 1965 Admit Type: Inpatient Age: 58 Room: [facility] Gender: Male Note Status: Finalized Attending [...] Most Recently Relevant to Health Maintenance Insurance [facility] Advance Directives Documents on File Type Date Recorded Patient Home Care Rn Expl [facility] Proxy 10/17/2023 9:51 AM 2020 [...] ( Fabian ) Devon Sister Alternate H [facility] Care Agent Care Teams Risk Intern Relationship Specialty Start Date End Date Cecy García PCP - General Internal Medicine 10/27/23
--- OUTSIDE RECORDS SUMMARY | 2025-02-14 14:07 | XMS_ITS | Clinical Summary ---
Author Organization [facility] Address [address] [facility] [address] [place] [id number] Phone Care Team Providers Care Bakery Assistant Name Role Phone MichelleRodrick, Lisa Lucy FACILITIES CLERK Primary Care Prov ider Amarjit Roberto MD Unavailable [phone] Fabricio Chaudhary MD Unavailable [phone] Allergies No known active allergies Medications amiodarone (PACERONE) 200 MG tablet Take 200 mg by mouth. 3 Active omeprazole (PRILOSEC) 20 MG capsule Take 1 capsule by mouth every morning. 4 Active amLODIPine (NORVASC) 5 MG tablet Take 1 tablet by mouth every morning. 4 Active JARDIANCE 10 mg tablet Take 1 tablet by mouth every morning. 4 Active furosemide (LASIX) 40 MG tablet Take 1 tablet by mouth every morning. 4 Active ibuprofen (ADVIL,MOTRIN) 800 MG tablet Take 800 mg by mouth 3 (three) times a day as needed. 4 Active spironolactone (ALDACTONE) 25 MG tablet Take 1 tablet by mouth every morning. 4 Active metoprolol succinate (TOPROL-XL) 100 MG 24 hr tablet Take 1 tablet by mouth every morning. 4 Active celecoxib (CELEBREX) 200 MG capsule Take 1 capsule by mouth as needed. 5 Active melatonin 5 mg Cap EVERY DAY FOR SLEEP FOR 90 DAYS 5 Active apixaban (ELIQUIS) 5 mg tablet Take 5 mg by mouth 2 (two) times a day. 01/23/20 25 Discontinu ed(No longer taking) lisinopril (PRINIVIL,ZESTR IL) 20 MG tablet Take 20 mg by mouth daily. 3 01/23/20 25 Discontinu ed(No longer taking) valsartan (DIOVAN) 160 MG tablet Take 1 tablet by mouth 2 (two) times a day. 4 01/23/20 25 Discontinu ed(No longer taking) Active Problems Problem Noted Date Diagnosed Date ICD (implantable cardioverter-defibrillator) in place 06/17/2024 Assessment & Plan (01/22/2025 11:58 AM EDT): Device interrogated today. 12.1-year battery life. RV pacing and sensing stable. 8 A-fib episodes and 13 nonsustained VT episodes. 1% A-fib burden. No parameter changes. CARPENTER RAILCAR 4.1%. Plan: Continue remote checks Follow-up in 6 months Assessment & Plan (06/17/2024 11:01 AM EST): V pacing burden noted to be about 20%. Pacing rate was decreased to 35 bpm Persistent atrial fibrillation 11/24/2023 Assessment & Plan (01/22/2025 11:58 AM EDT): Status post previous ablation. Patient is currently on amiodarone and tolerating this medication well. He is additionally on metoprolol for rate control. Patient has intermittent episodes of A-fib lasting less than an hour. Patient is not currently on OAC. This was discontinued by his primary manager [employer]. If he has an increase in overall burden, will reinstitute oral anticoagulation. Patient had labs done recently with his primary care doctor and manager [employer]. I will request these records. Will assess for amiodarone toxicity. Plan: Continue amiodarone Continue metoprolol Follow-up in 6 months Assessment & Plan (06/17/2024 11:00 AM EST): Will need to be on amiodarone for 3 months after ablation. Can wean off after 3 months Assessment & Plan (04/03/2024 11:15 AM EDT): We had a detailed discussion with the patient with regards to rhythm control with medication versus rhythm control with ablation. Patient at this point wants to pursue ablation. Risk and benefits of the procedure were discussed in detail. Continue amiodarone Assessment & Plan (11/24/2023 2:23 PM EDT): Patient has persistent atrial fibrillation. Continue amiodarone. Continue metoprolol. Will request for atrial fibrillation ablation. Risk and benefits of the procedure were discussed in detail. Counseled about diet and lifestyle modification. Paroxysmal ventricular tachycardia 11/24/2023 Assessment & Plan (01/22/2025 11:58 AM EDT): Paroxysmal episodes of nonsustained VT. Patient is currently managed on amiodarone and is tolerating this medication well. No changes in management at this time. Assessment & Plan (04/03/2024 11:15 AM EDT): No clear evidence of ventricular tachycardia on device interrogation. Continue beta-misha and amiodarone. Assessment & Plan (11/24/2023 2:23 PM EDT): S/p ICD. Currently on amiodarone. Encounters Date Type Department Care Team Description 01/22/2025 11:30 AM EDT Office Visit [facility] [address] [place] [address] [address], [address] [place] [address] Preet Spencer MD Muse, Hannah, DNP Persistent atrial fibrillation (Primary Dx); Paroxysmal ventricular tachycardia; ICD (implantable cardioverter-defibril lator) in place from Last 3 Months Social History Tobacco Use Types Packs/Day Years Used Date Smoking Tobacco: Never Assessed Education Answer Date Recorded Are you interested in more education? Not on too e 10/02/2023 Are you concerned about learning? Not on file 10/02/2023 No 10/02/2023 No 10/02/2023 Digital Access Answer Date Recorded No 10/02/2023 No 10/02/2023 Reliable internet access at home? Not on file 10/02/2023 Device with a working camera? Not on file Sex and Gender Information Value Date Recorded Sex Assigned at Not on file Legal Sex Male 9:02 AM EDT Gender Identity Not on file Sexual Orientation Not on file Last Filed Vital Signs Vital Sign Reading Time Taken Comments Blood Pressure 100/60 01/22/2025 10:59 AM EDT Pulse 75 01/22/2025 10:59 AM EDT Temperature - - Respiratory Rate - - Oxygen Saturation 97% 01/22/2025 10:59 AM EDT Inhaled Oxygen Concentration - - Weight 115.7 kg (255 lb) 01/22/2025 10:59 AM EDT Height 190.5 cm (6' 3 ) 01/22/2025 10:59 AM EDT Body Mass Index 31.87 01/22/2025 10:59 AM EDT Plan of Treatment Upcoming Encounters Date Type Department Care Team (Late st Contact Info) Description 08/01/2025 10:20 AM EST Office Visit [facility] [address] [facility] 3rd Floor, [address] [place] [address] Preet Spencer MD [address] [place] [address] [email or web address] Health Maintenance Due Date Last Done Comments ALT LEVEL (ALANINE AMINOTRANSFERASE) 1967 Adult Td,Tdap Booster 1967 POTASSIUM LEVEL 1967 TSH LEVEL 1967 DEPRESSION SCREENING 1979 SMOKING Hx and SMOKELESS TOB ACCO SCREENING 1980 HEPATITIS C SCREENING 1985 HIV ONE-TIME SCREENING (18-6 5 YEARS) 1985 SCREENING FOR DIABETES 2002 COLOGUARD 2012 COLONOSCOPY 2012 COLORECTAL CANCER SCREENING 2012 FIT TEST 2012 FOBT 2012 SIGMOIDOSCOPY 2012 VIRTUAL COLONOSCOPY 2012 PNEUMOCOCCAL VACCINES (50+ y ears) (1 of 1 - PCV) 2017 ZOSTER VACCINES (1 of 2) 2017 LIPID PANEL 03/13/2024 03/13/2019 COVID-19 VACCINE (1 - 2023-2 5 season) 2024 HEPATITIS A VACCINES Aged Out No long er eligible based on patient's age to complete this topic HIB VACCINES Aged Out No longer eligi ble based on patient's age to complete this topic MENINGOCOCCAL VACCINES (ACWY) Aged Out No longer eligible based on patient's age to complete this topic MENINGOCOCCAL VACCINES (B) Aged Out N o longer eligible based on patient's age to complete this topic Medical Devices Not on file Insurance [place] B MEDICARE PART A & B [address] [place], [place] [address]HEALTH MEDICARE PART A & B [place] & B Care Teams Bakery Assistant Relationship Specialty Start Date End Date Lisa Heard FNP [address] [place] [address] [address] [place] [address] PCP - General Family Medicine 06/17/24 Amarjit Roberto MD [address] [place] [address] [address] [place] [address] Orthopedic Surgery 01/22/25 Fabricio Chaudhary MD [address] [place] [address] [address] [place] [address] Cardiology 01/22/25 Additional Source Comments The information contained in this document represents components of the legal health record. It is not the complete legal health record.[facility]
[2025-02-14 14:27] VITALS: BP 112/84
== END 2025-02-14 14:42 | disposition home or self-care (01) ==
LOC: HO.HMCH 14:04
DX: Z01.818 Encounter for other preprocedural examination (principal)

== ENCOUNTER → 2025-02-14 14:04 | Outpatient (BNVA) | payer MEDICARE, MEDICAID, SELFPAY | DX: Z01.818 Encounter for other preprocedural examination (principal) | CPT/HCPCS: 99212 ==

== ENCOUNTER → 2025-03-15 23:59 | Outpatient (BNV) | payer MEDICARE, MEDICAID, SELFPAY ==
--- NOTE | 2025-03-25 09:33 | MHC.OFFVIS ---
Intake Visit Reasons: Remote HF monitoring- [employer] Allergies No Known Allergies Allergy (Verified 03/18/25 08:16) PFSH Medical History Osteoarthritis History of blood transfusion PAF (paroxysmal atrial fibrillation) HTN (hypertension) (HFpEF) heart failure with preserved ejection fraction Ventricular tachycardia Anemia Acute pancreatitis Pancreatic pseudocyst Acute heart failure with preserved ejection fraction (HFpEF) Acute exacerbation of CHF (congestive heart failure) Morbid obesity Gastrointestinal bleeding History of cardioversion FARHEEN on CPAP Alcohol abuse Surgical History AICD (automatic cardioverter/defibrillator) present (~2022) Hx of cardiac catheterization (02/2023) History of left hip replacement (~2017) History of cardiac radiofrequency ablation (04/2024) History of esophagogastroduodenoscopy (EGD) (04/2024) Hx of colonoscopy (07/24/24) Status post ORIF of fracture of ankle Family History Mother HTN (hypertension) Diabetes mellitus Father Diabetes mellitus HTN (hypertension) Maternal Uncle Colon cancer Social History Household Members: Significant Other Household Members Other:: GF, daughter Housing: Apartment Are you a primary healthcare consulting manager to a significant other at home: No Do you presently have visiting nurse or other home services: No Alcohol intake: former Comment: pt prefer own socks Patient Tobacco Use Status: Never used Tobacco e-Cigarette/Vaping Use: Never Used Second Hand Smoke Exposure: No Substance Use Type: Marijuana Advance Directives Date on File: 01/25/21 service: No Current occupational status: retired Current occupation: rt handed Cognitive needs: No Hearing needs: No Vision needs: No Office Procedures Cardiac Device Check Cardiac Device Check Details: Date of service- 03/15/2025; based on impedance data and physiological variables, there is no evidence of worsening congestive heart failure. [id number] Cardiac Device Interrogation, cardio physiologic monitor Procedure code (CPT) selection complete Assessment & Plan Assessment & Plan (1) ICD (implantable cardioverter-defibrillator) in place: Code(s): Z95.810 - Presence of automatic (implantable) cardiac defibrillator Category: Medical (2) NICM (nonischemic cardiomyopathy): Code(s): I42.8 - Other cardiomyopathies Category: Medical Plan x Coding Level of Care Code Procedure Only Diagnoses ICD (implantable cardioverter-defibrillator) in place Z95.810 NICM (nonischemic cardiomyopathy) I42.8 CPT Codes Cardiac Device Check - Cardiac Device 15: [id number] Cardiac Device Interrogation, cardio physiologic monitor ([id number])
== END ==
PROVIDERS: Visit Provider Internal Medicine
DX: I42.8 Other cardiomyopathies (principal); Z95.810 Presence of automatic (implantable) cardiac defibrillator
CPT/HCPCS: 93297

== ENCOUNTER 2025-03-18 08:12 | Emergency (ER) | payer MEDICARE, MEDICAID, SELFPAY ==
--- NOTE | ~2025-03-18 | XR_ITS ---
EXAMINATION: XR CHEST CLINICAL INFORMATION: epigastric pain COMPARISON: 04/26/2024. TECHNIQUE: Frontal view of the chest was obtained. FINDINGS: Left-sided single-lead AICD device in place with tip in the right atrium. Mildly elevated left hemidiaphragm, unchanged. The cardiac, hilar, and mediastinal contours are normal. The lungs are clear bilaterally. No pneumothorax or effusion. No focal osseous or soft tissue abnormality. XR/XR chest 1V IMPRESSION: No active pulmonary disease. Electronically signed by: Per Ritchie MD 03/18/2025 09:06 AM EDT
--- NOTE | ~2025-03-18 | CT_ITS ---
EXAMINATION: CT ABDOMEN AND PELVIS WITH CONTRAST CLINICAL INFORMATION: Periumbilical pain COMPARISON: August 09, 2024 and February 23, 2024 TECHNIQUE: Multidetector volumetric images were obtained from the superior aspect of the liver through the pubic symphysis following administration 85 mL of Omnipaque 350 intravenous contrast. Sagittal and coronal reformatted images were obtained on the technologist's workstation. Oral contrast: No This CT examination was performed using dose optimization techniques as appropriate, variously including the following: *Automated exposure control *Adjustment of mA and/or kV according to patient size (this includes techniques or standardized protocols for targeted exams where dose is matched to indication/reason for exam; i.e. extremities or head) *Use of iterative reconstruction technique DLP: 907 mGY*cm FINDINGS: LUNG BASES: The visualized lung bases are unremarkable. LIVER, GALLBLADDER, AND BILIARY TREE: The liver is normal in size, shape, and attenuation. No focal hepatic lesion or biliary ductal dilatation is present. The gallbladder is unremarkable with no evidence of radiopaque gallstones, gallbladder wall thickening, or obvious pericholecystic inflammatory changes. PANCREAS: Again seen is a cystic lesion in the neck of the pancreas that measures 2.0 x 3.6 cm, previously 3.8 x 4.2 cm. Margins are moderately obscured by metal coils in this region. Peripancreatic fat stranding that was present on the prior examination has resolved. Mass effect on the portal vein has resolved. SPLEEN: Unremarkable. ADRENAL GLANDS: There is a left adrenal gland nodule measuring 43 Hounsfield units and 9 x 15 mm, unchanged. Right adrenal gland is unremarkable. On unenhanced exam February 23, 2024, it measured -6 Hounsfield units. KIDNEYS AND URETERS: The kidneys are normal in size, shape, and attenuation. No hydronephrosis, hydroureter, or calculi seen. No perinephric stranding. BLADDER: Unremarkable. GASTROINTESTINAL TRACT: Diverticulosis is noted throughout the colon. The appendix is within normal limits. ABDOMINAL WALL: No significant hernia is appreciated. LYMPH NODES: Normal. VASCULAR: Moderate vascular opacifications are present in the aorta and iliac arteries. PELVIC VISCERA: Unremarkable. OSSEOUS STRUCTURES: Total hip replacement is incompletely imaged on the left. Severe osteoarthritis is seen in the right hip with degenerative cystic change, sclerosis, narrowing of the joint in the superior lateral direction, and large marginal osteophytes involving acetabulum and femoral head. CT/CT abdomen pelvis w IV con IMPRESSION: Again seen is cystic lesion in the neck of the pancreas that has decreased in size. This could represent pseudocysts, cyst, or cystic neoplasm. Mass effect on the portal vein has resolved. 9 x 15 mm left adrenal gland nodule is consistent with a benign lipid rich adrenal adenoma. It is unchanged since at least February 23, 2024. Colonic diverticulosis without evidence of infection. Fleischner guidelines were followed. Electronically signed by: Shamar Bazan MD 03/18/2025 10:40 AM EDT
[2025-03-18 08:14] VITALS: BP 137/75; PULSE 81; RESP 18; TEMP 36.3; O2SAT 100; BMI 28.1
--- NOTE | 2025-03-18 08:27 | ED_ITS ---
HPI - Abdominal Pain General Chief Complaint: Abdominal Pain Stated Complaint: Abd pain Time Seen by Provider: 03/18/25 08:15 Source: patient Mode of arrival: ambulatory Limitations: no limitations History of Present Illness ED Provider: Coby Bonilla PA-C HPI narrative: Well-appearing 59-year-old male with history of GERD presenting to the emergency department today for worsening epigastric and upper abdominal pain over the last several months. He is established with her son from Gastroenterology but has not seen him for a year. He is currently on 20 mg of omeprazole daily. Patient has concerns about this not working. He reports avoiding all aggravating foods and no excessive alcohol intake. He does not feel nauseous he has had no vomiting and no diarrhea. He reports early satiety with a significant decrease in the amount that he is able to tolerate. Food does not make it worse he just feels full easily. Over the last several months he has lost some weight and over the last 3 weeks he has lost 25 lb. He did follow up with his primary care provider for which he did not share her are no recommendations. Patient does have a defibrillator. He reports no shortness of breath with exertion or chest pain. He is concerned about his kidneys as sometimes when he does trunk rotation it hurts his right back side but no known trauma paresthesias or weakness. He has denies any symptoms. Last bowel movement yesterday nonpainful nonbloody. He also has FARHEEN but he is compliant with the CPAP machine denying any shortness of breath with exertion. No family history of colon cancer. He can not recall his last endoscopy but thinks it could have been within the last year. He has not made an attempt to reach out to Dr. Whitman in regards to his worsening epigastric pain. Surgical history includes surgical clips and what he reports as his stomach but in review of his chart it looks like he had Renita-Hernandez tears in the past. Other pertinent past medical history includes proximal AFib, heart failure, hypertension, osteoporosis, and pancreatitis as well as anemia. Patient is endorsing that the pain was severe enough that he put off getting a right-sided hip replacement 1 month ago as he was concerning that this might interfere even though he was cleared perioperatively for it. He plans to go through with this in the fall now. Related Data Home Medications ?Medication ?Instructions ?Recorded ?Confirmed omeprazole 20 mg capsule,delayed 20 mg PO DAILY@0630 0 12/31/24 02/14/25 release amiodarone 200 mg tablet 200 mg PO DAILY 01/27/2508/10 Previous Rx's ?Medication ?Instructions ?Recorded blood pressure monitor (Blood #1 ea 04/25/23 Pressure Kit) miscellaneous medical supply #1 ea 03/06/24 (Blood Pressure Cuff) furosemide 40 mg tablet 40 mg PO DAILY #30 tabs 07/18 04/10 spironolactone 25 mg tablet 25 mg PO DAILY #90 tabs empagliflozin 10 mg tablet 10 mg PO DAILY #90 tabs 10/08 (Jardiance) metoprolol succinate 100 mg 100 mg PO DAILY #90 tabs 0 11/21/24 tablet,extended release 24 hr (Toprol XL) cholecalciferol (vitamin D3) 50 50 mcg PO DAILY low vi tamin d 01/03/25 mcg (2,000 unit) capsule levels 90 days #90 caps mecobalamin (vitamin B12) 1,000 1,000 mcg sublingual B EDTIME 01/03/25 mcg disintegrating 1000mcg 90 days #90 tabs tablet,sublingual Folding Front Wheeled walker #1 ea 02/06/25 melatonin 5 mg capsule 5 mg PO BEDTIME PRN insomnia 2 03/18/25 months #60 caps omeprazole 20 mg capsule,delayed 20 mg PO BID #30 caps 03/18/25 release sucralfate 1 gram tablet 1 g PO Q6H #112 tabs 5 Allergies Allergy/AdvReac Type Severity Reaction Status Date / Time No Known Allergies Allergy Verified 03/18/25 08:16 Review of Systems Review of Systems Yes all other systems are reviewed and are negative [facility] Past Medical History Attestation statement: The following information was validated with the patient. Source: old records reviewed and nursing notes reviewed Medical History Osteoarthritis History of blood transfusion PAF (paroxysmal atrial fibrillation) HTN (hypertension) (HFpEF) heart failure with preserved ejection fraction Ventricular tachycardia Anemia Acute pancreatitis Pancreatic pseudocyst Acute heart failure with preserved ejection fraction (HFpEF) Acute exacerbation of CHF (congestive heart failure) Morbid obesity Gastrointestinal bleeding History of cardioversion FARHEEN on CPAP Alcohol abuse Surgical History AICD (automatic cardioverter/defibrillator) present (~2022) Hx of cardiac catheterization (02/2023) History of left hip replacement (~2018) History of cardiac radiofrequency ablation (04/2024) History of esophagogastroduodenoscopy (EGD) (04/2024) Hx of colonoscopy (07/24/24) Status post ORIF of fracture of ankle Family History Family History Mother HTN (hypertension) Diabetes mellitus Father Diabetes mellitus HTN (hypertension) Maternal Uncle Colon cancer Social History Social History Household Members: Significant Other Household Members Other:: GF, daughter Housing: Apartment Are you a primary resident care associate to a significant other at home: No Do you presently have visiting nurse or other home services: No Alcohol intake: former Comment: pt prefer own socks Patient Tobacco Use Status: Never used Tobacco Smoked in Last 30 Days: No e-Cigarette/Vaping Use: Never Used Second Hand Smoke Exposure: No Use of substances other than those prescribed or required for medical reasons: No Substance Use Type: Marijuana Advance Directives: Yes Advance Directives on File: Yes Advance Directives Date on File: 01/25/21 service: No Current occupational status: retired Current occupation: rt handed Cognitive needs: No Hearing needs: No Vision needs: No Physical Exam ED Exam Exam: General: Appears in no acute distress, appears well nourished body habitus is obese, appears stated age. No septic or ill-appearing. Vitals reviewed normal, PMH/Social and Surgical hx reviewed including allergies and current medications. - reviewed for prior visits here and read as it pertains to similar CC. Head: Normocephalic, no obvious trauma or skin lesions noted. Eyes: EOMI, no jaundice ENMT: moist oral mucosa Neck: trachea midline, no lymphadenopathy Cardiovascular: peripheral perfusion normal, Regular heart rate regular rhythm Respiratory: no respiratory distress lungs clear to auscultation bilaterally Abdomen: nondistended, tender epigastric and right upper quadrant as well as left upper quadrant no guarding negative peritoneal signs no ecchymosis Extremities: warm and moving without difficulty unless otherwise detailed in physical exam if applicable. Psych: Cooperative Neuro: Alert and oriented. Vital Signs: Vital Signs - 24 hr 03/18/25 08:14 03/18/25 09:13 Temperature 97.4 F Pulse Rate 81 72 Respiratory Rate 18 16 Blood Pressure 137/75 107/80 Pulse Oximetry 100 98 Oxygen Delivery Method Room Air Room Air BMI result Body Mass Index 28.1 Medical Decision Making Medical Decision Making [facility] Narrative: Well-appearing 39-year-old male with past medical history significant for paroxysmal AFib, heart failure, hypertension, anemia, pancreatitis, FARHEEN, GERD, and Renita-Hernandez tears and ICD presenting for worsening epigastric and upper abdominal pain for the last several weeks to months. Upon arrival to ED patient is afebrile and well-appearing with normal stable vital signs. He has a tender abdomen in the bilateral upper quadrants and epigastric region. There is no abdominal bruit and he is not hypotensive less concerning for aortic dissection especially in the setting of the symptoms being chronic. At this point suspect possible peptic ulcer disease/erosive gastritis. We will obtain abdominal labs and a chest x-ray and EKG although it does not seem to be cardiac given his epigastric complaint we will include a troponin. He does not appear ill or septic less likely to be infectious etiology. He is hydrated. Can not rule out malignant etiology given his extreme weight loss but this also would be expected in the setting of decreased intake. 0938: potassium is 3.1 despite being on spirolactone, will replenish via IV. Mild normocyctic anemia noted (known in hx), transfusion not indicated. No BRBPR and c/o of hematochezia GI bleed protocol not indicated. No leukocytosis. No hepatobiliary disease. Troponin 4.5, EKG with nonspecific ST changes, MAIRA can be ruled out. Noted PVC and PAC. CXR without widened mediastinum, effusion or acute pulmonary disease. Lungs clear on exam. Ct abd/ pelvis pending. 1059:CT with the following results: IMPRESSION: Again seen is cystic lesion in the neck of the pancreas that has decreased in size. This could represent pseudocysts, cyst, or cystic neoplasm. Mass effect on the portal vein has resolved. 9 x 15 mm left adrenal gland nodule is consistent with a benign lipid rich adrenal adenoma. It is unchanged since at least February 23, 2024. Colonic diverticulosis without evidence of infection. Fleischner guidelines were followed. Electronically signed by: Shamar Bazan MD 03/18/2025 10:40 AM EDT It is felt patient's condition is most likely gastritis/ PUD. Plan to do his PPI BID and start sucralfate with outpatient GI followup. This plan was shared with oncall GI speclialist Dr. Rahman for which is patient's GI doctor. He agreed with my plan. Discussed these overall results with the patient who demonstrated verbal understanding of the plan and agreed he was given ED return precautions. Who was discharged home stable Differential Diagnosis Differential Diagnoses: The differential diagnosis associated with the presentation includes gastritis PUD refractory GERD ACS pancreatitis hepatobiliary disease colitis malignancy Admission/Observation Consideration of admission/observation: Escalation of care including admission/observation considered Consult Healthcare Provider Management of the patient was discussed with: Getter Operator Dr. Rahman (gastroenterology) Lab Data MDM Lab Attestation statement: I reviewed the patient's lab results. 03/18/25 09:04 03/18/25 09:04 Labs: Lab Results 03/18/25 Range/Units 09:04 WBC 7.8 (4.8-10.8) X10*3/uL RBC 4.44 L (4.60-5.80) X10*6/uL Hgb 12.2 L (14.0-18.0) g/dl Hct 36.4 L (42.0-52.0) % MCV 82.0 (80.0-98.0) fL MCH 27.5 (27.0-33.0) pg MCHC 33.5 (31.0-36.0) g/dl RDW 13.3 (11.0-16.0) % Plt Count 270 (160-400) X10*3/uL MPV 10.3 (9.4-12.4) fL Immature Gran % (Auto) 0.5 H (0.0-0.4) % Neut % (Auto) 58.6 (45-73) % Lymph % (Auto) 22.7 (20-40) % Kimball % (Auto) 11.3 H (2-11) % Eos % (Auto) 6.3 H (0-4) % Baso % (Auto) 0.6 (0-2) % Lymph # (Auto) 1.8 (1.2-4.9) X10*3/uL Kimball # (Auto) 0.9 (0.1-1.2) X10*3/uL Eos # (Auto) 0.5 H (0.0-0.4) X10*3/uL Baso # (Auto) 0.1 (0.0-0.2) X10*3/uL Abs Immat Gran (auto) 0.04 H (0.00-0.03) X10*3/uL Absolute Neuts (auto) 4.6 (2.0-8.3) x10*3/uL Absolute Nucleated RBC 0.000 (0.0-0.012) X10*3/uL Nucleated RBC % (auto) 0.0 (0.0-0.2) /100WBC PT 14.1 H (10.9-12.4) SEC INR 1.2 H (0.9-1.1) Sodium 137 (135-145) mmol/L Potassium 3.1 L D (3.3-5.1) mmol/L Chloride 100 (96-108) mmol/L Carbon Dioxide 26 (22-29) mmol/L Anion Gap 14 (12-20) BUN 12 (9-16) mg/dL Creatinine 0.74 (0.5-1.4) mg/dL Estim Creat Clear Calc 142.4 Estimated GFR > 60 Random Glucose 111 (60-115) mg/dL Calcium 9.4 (8.4-10.2) mg/dL Magnesium 1.7 (1.6-2.6) mg/dL Total Bilirubin 0.8 (0.0-1.0) mg/dL AST 26 (5-37) U/L ALT 10 (0-40) U/L Alkaline Phosphatase 80 (39-117) U/L Troponin I High Sens 4.5 D (<3.5-35.0) ng/L Total Protein 7.0 (6.5-8.0) g/dL Albumin 3.6 (3.5-5.0) g/dL Lipase 65 (8-78) U/L Independent Interpretation I performed an independent interpretation of an: EKG, Plain X-Ray and CT Scan Interpretation: 87 bpm: No overt evidence of STEMI. No evidence of Brugada's sign, delta wave, epsilon wave, significantly prolonged QTc, or malignant arrhythmia CXR: normal CT abd/pelvis: no obvious SBO or colitis Radiology Impression Discussion of test interpretation with radiology: I have reviewed the radiologist's reading. Radiologist Impression: see MDM External Record Review External record reviewed: Outpatient record Tests considered The following testing was considered but not selected: CTA abd/pelvis : no GI bleed, deferrred Prescription Management I considered prescription management with: Other Chronic Conditions Patient?s care impacted by: Hypertension and Other (GERD) Social Determinants Patient?s care significantly limited by Social Determinants of Health including: Other Social Determinant of Health Medications Administered Generic Name Dose Route Start Last Admin Trade Name Freq PRN Reason Stop Dose Admin Potassium Chloride 10 meq in 100 mls @ 100 mls/hr 03/18/25 10:00 03/18/25 11:48 Potassium Chloride/H20 IV 03/18/25 13:59 100 mls/hr Q1H TIGIST Administration Discontinued Medications Generic Name Dose Route Start Last Admin Trade Name Freq PRN Reason Stop Dose Admin Sodium Chloride 1,000 mls @ 999 mls/hr 03/18/25 08:45 03/18/25 09:08 Ns IV 03/18/25 09:45 999 mls/hr .Q1H1M TIGIST Administration Iohexol 100 ml 03/18/25 09:34 03/18/25 09:39 Iohexol 350 Mg/Ml 100 Ml Infus..Btl IV 03/18/25 09:35 85 ml ONCE ONE Administration Discharge Plan Discharge Clinical Impression: Acute alcoholic gastritis without hemorrhage, Acute hypokalemia Abdominal pain Qualifiers: Abdominal location: generalized Qualified Code(s): R10.84 - Generalized abdominal pain Patient Disposition: Home, Self-Care Instructions: Gastritis (DC), Potassium Content of Foods List (ED) Additional Instructions: -Take Prilosec (omeprazole) twice a day. You may have also been prescribed sucralfate. Take 4 times a day for 28 days. -AVOID alcohol, spicy foods, Motrin/Aleve medications, and eating past 8:00 at night. -You may take antacids such as Maalox or Tums for acute symptoms but realize that these medications will not prevent your symptoms. -Remain upright for at least 45 minutes following meals. -Follow-up with your primary care doctor or gastroenterology. -Return to ED if you develop fever, chills, increased pain, vomiting. Other things to do to prevent symptoms: -Lose weight (if you are overweight) -Raise the head of your bed by 6 to 8 inches (for example, by putting blocks of wood or rubber under 2 legs of the bed or a Styrofoam wedge under the mattress) -Avoid foods that make your symptoms worse (examples include coffee, chocolate, alcohol, peppermint, and fatty foods) -Cut down on the amount of alcohol you drink -Stop smoking, if you smoke -Eat a bunch of small meals each day, rather than 2 or 3 big meals -Avoid lying down for 3 hours after a meal Follow up outpatient with gastroenterology. Prescriptions: New omeprazole 20 mg capsule,delayed release(DR/EC) 20 mg PO BID Qty: 30 0RF sucralfate 1 gram tablet 1 g PO Q6H Qty: 112 0RF No Action (DME) blood pressure monitor [Blood Pressure Kit] Kit See Rx Instructions .Route Qty: 1 0RF Rx Instructions: As directed furosemide 40 mg tablet 40 mg PO DAILY Qty: 30 5RF spironolactone 25 mg tablet 25 mg PO DAILY Qty: 90 3RF Protocol: Hold for SBP< HOLD for SBP < : 90 Jardiance 10 mg tablet 10 mg PO DAILY Qty: 90 3RF metoprolol succinate [Toprol XL] 100 mg tablet extended release 24 hr 100 mg PO DAILY Qty: 90 3RF cholecalciferol (vitamin D3) 50 mcg (2,000 unit) capsule 50 mcg PO DAILY 90 Days Qty: 90 3RF Rx Instructions: take one capsule daily at bedtime. mecobalamin (vitamin B12) 1,000 mcg tablet,disintegrating 1,000 mcg sublingual BEDTIME MDD 1000mcg 90 Days Qty: 90 0RF Rx Instructions: place tablet under tongue and allow to dissolve for at least30 secs before swallowing (DME) Folding Front Wheeled walker See Rx Instructions .ROUTE .MEDSUPPLY Qty: 1 0RF Rx Instructions: Duration: 99 days melatonin 5 mg capsule 5 mg PO BEDTIME PRN (Reason: insomnia) 60 Days Qty: 60 2RF omeprazole 20 mg capsule,delayed release(DR/EC) 20 mg PO DAILY@0630 amiodarone 200 mg tablet 200 mg PO DAILY (DME) Blood Pressure Cuff [facility] See Rx Instructions .Route Qty: 1 0RF Rx Instructions: As directed Referrals: [facility] Gastroenterology Services [Provider Group, Gastroenterology] Referral Note: pancreatic cyst, gastritis Print Language: Luxembourgish
--- NOTE | 2025-03-18 08:43 | ECG_ITS ---
Test Reason : cp Blood Pressure : */* mmHG Vent. Rate : 87 BPM Atrial Rate : 87 BPM P-R Int : 162 ms QRS Dur : 74 ms QT Int : 392 ms P-R-T Axes : 66 -3 24 degrees QTcB Int : 471 ms Sinus rhythm with Premature atrial complexes with Aberrant conduction Nonspecific ST abnormality Abnormal ECG When compared with ECG of 31-Dec-2024 14:29, Aberrant conduction is now Present QT has lengthened Referred By: Coby Bonilla Electronically Signed By: Tato Delgado
[2025-03-18 09:10] LABS: MANUAL DIFF FLAG NO
--- OUTSIDE RECORDS SUMMARY | 2025-03-18 09:11 | XMS_ITS | Clinical Summary ---
Author Organization [facility] Address [id number] [place] [id number] Care Team Providers Care Private Secretary Name Role Phone Cecy García MD Primary Care Provider [phone] Active Problems Problem Noted Date Diagnosed Date Hypertension 06/10/2019 Bilateral knee pain 01/18/2018 Surgical History Surgery Date Site/Laterality Comments ANKLE FRACTURE SURGERY PROCEDURE: MD OPEN TREATMENT MEDIAL MALLEOLUS FRACTURE KNEE ARTHROSCOPY W/ MENISCAL REPAIR PROCEDURE: MD ARTHROSCOPY KNEE W/MENISCUS RPR MEDIAL/LATERAL Family History [...] 06/25/2022 Cholesterol Screening (Lipid Panel) 03/13/2024 03/13/2019 Depression Screening 07/17/2024 Hypertension/CHF/CAD Annual BMP Blood Test 01/09/2025 01/10/2024 COVID-19 Vaccine ( - 2023-2 5 season) 2025 Influenza Vaccine (#1) 2025 Colorectal Cancer Screening: [...] Result * Hepatitis C Screening (10/15/2023) Pathologist [facility] Hepatitis C Screening abstracted us Historical Provider [...] Recently Relevant to Health Maintenance Care Teams Private Secretary Relationship Specialty Start Date End Date eCcy García MD [address] [place] [address] PCP - General Internal Medicine 10/30/17
--- OUTSIDE RECORDS SUMMARY | 2025-03-18 09:11 | XMS_ITS | Encounter Summary ---
Author Organization [facility] Address [address] [place] [address] Care Team Providers Care Marketing Professor Name Role Phone Cecy García MD Primary Care Provider Encounter Details Date Type Department Care Team Description 2019 Construction Equipment Mechanic Helper Report Medical Records [address] [place] [address] Ovi Benz MD [address] [place] [id number] Social History Tobacco Use Types Packs/Day Years [...] on filedocumented in this encounter Care Teams Marketing Professor Relationship Specialty Start Date End Date Cecy García MD [address] [place] [address] PCP - General Internal Medicine 10/30/17 documented as of this encounter
--- OUTSIDE RECORDS SUMMARY | 2025-03-18 09:11 | XMS_ITS | Clinical Summary ---
Author Organization [facility] Address [address] [place] [address] Care Team Providers Care Reference Data Expert Name Role Phone Cecy García MD Primary Care Provider [phone] Medications No known medications Active Problems Problem Noted Date Hypertension 06/10/2019 Bilateral knee pain 01/18/2018 Family History Medical History Relation Name Comments No Known Problems Brother 1 No Known Problems Brother 2 No Known Problems Brother 3 No Known Problems Brother 4 Diabetes Father Throat Cancer Maternal Grandfather No Known Problems Maternal Grandmother Diabetes Mother Hypercholesterolemia Mother Hypertension Mother [place] Mother cause of ckd Mother HD Diabetes Sister 1 Diabetes [...] Never Smokeless Tobacco: Never Tobacco Cessation:Counseling Given: No Alcohol Use Standard Drinks/Week Comments Yes 0 (1 standard drink = 0.6 oz pur e alcohol) 24 beers a wk; EtOH sz 01/03 Sex Assigned at Date Recorded Not on file Last Filed Vital Signs Vital Sign Reading Time Taken Comments Blood Pressure 130/84 07/24/2019 10:05 AM EST Pulse 72 07/24/2019 10:05 AM EST Temperature 36.9 C (98.4 F) 07/24/2019 10:05 AM EST Respiratory Rate 16 07/24/2019 10:0 5 AM EST Oxygen Saturation - - Inhaled Oxygen Concentration - - Weight 119.6 kg (263 lb 11.2 oz) 2019 10:05 AM EST Height 190.5 cm (6' 3 ) 07/24/2019 10:0 5 AM EST Body Mass Index 32.96 07/24/2019 10:05 AM EST Plan of Treatment Health Maintenance Due Date Last Done Comments Covid-19 Vaccine (#1) 1967 DEPRESSION SCREEN 1979 HEPATITIS C SCREENING 1985 SHINGLES VACCINE (1 of 2) 2017 BASELINE HEALTH EXAM 40-64 03/13/202103/13, 03/13/2019, 11/03/2017, Additional history exists DTAP/TDAP/TD (2 - Td or Tdap) 09/18/2023 09/17/2013 (Completed) CHOLESTEROL SCREENING 03/13/2024 03/13/2019, 018 BMI CHECK/ADVISE 07/17/2024 06/10/2019, 12/2018, 03/13/2019, Additional history exists DEPRESSION SCREENING/FOLLOWUP 07/17/2024 SOCIAL NEEDS SCREENING 07/17/2024 INFLUENZA (#1) 2025 COLON CANCER SCREENING 11/19/2028 11/19/2018 PNEUMOCOCCAL VACCINE FOR HIG H RISK PATIENTS (#1) 2032 Care Teams Reference Data Expert Relationship Specialty Start Date End Date Cecy García MD [address] [place] [id number] PCP - General Internal Medicine 10/30/17
--- OUTSIDE RECORDS SUMMARY | 2025-03-18 09:11 | XMS_ITS | Encounter Summary ---
Author Organization [facility] Address [address] [place] [address] Care Team Providers Care Records Assistant Name Role Phone Unavailable Primary Care Provider Unavailabl e Reason for Visit * Reason Comments Medication Refill Encounter Details Date Type Department Care Team (Late st Contact Info) Description 04/14/2023 Refill [facility] [place] [address] [facility], [address], [place] [id number] Santi Mirza MD [address] [facility] [address], [place] [address] Medication Refill Social History Tobacco [...] your living situation today? I have a [facility] place to live 02/20/2023 Interpersonal Safety [...]
--- OUTSIDE RECORDS SUMMARY | 2025-03-18 09:11 | XMS_ITS | Encounter Summary ---
Author Organization [facility] Address [address] [place] [address] Care Team Providers Care Cruise Guide Name Role Phone Unavailable Primary Care Provider Unavailabl e Encounter Details Date Type Department Care Team (Late st Contact Info) Description 03/22/2023 Scanned Document [facility] [place] [address] [facility], [address], [place] [address] Provider, Historical . Social History Tobacco Use [...] living situation today? I have a [facility] place to live 02/20/2023 Interpersonal Safety Answer [...]
--- OUTSIDE RECORDS SUMMARY | 2025-03-18 09:11 | XMS_ITS | Encounter Summary ---
Author Organization [facility] Address [address] [place] [address] Care Team Providers Care Habilitative Interventionist Name Role Phone Unavailable Primary Care Provider Unavailabl e Reason for Visit * Reason Comments Med Change Request Encounter Details Date Type Department Care Team (Late st Contact Info) Description 03/23/2023 Refill [facility] [place] [address] [facility], [address], [place] [phone] Santi Mirza MD [address] [facility] [address] [place] [address] Med Change Request Social History [...] your living situation today? I have a [facility] place to live 02/20/2023 Interpersonal Safety [...]
--- OUTSIDE RECORDS SUMMARY | 2025-03-18 09:11 | XMS_ITS | Clinical Summary ---
Author Organization [facility] Address [address] [place] [address] Care Team Providers Care Mate Relief Name Role Phone Cecy García Primary Care Provider [phone] Allergies No known active allergies Medications amiodarone [...] to have alisha-duodenal hematoma so transferred to [facility]. With hypotension and lactic acidosis initially improved after 2 units of PRBCs. CTA at [facility] showed large hematoma involving the [...] to have alisha-duodenal hematoma so transferred to [facility]. With hypotension and lactic acidosis [...] PM EDT): Patient had prior admission to [place] in February of last year where he [...] During his admission in February 2023 at [place] he had alcohol withdrawal through day 5 [...] PM EDT): Status post 2 cardioversions at [place]. Continue with Eliquis. Continue with amiodarone for [...] elevation and prior normal colonoscopy reported at [facility] 8 years ago warranting return for [...] in place. Patient had prior admission to [place] in February of last year where he [...] 1965 Hepatitis C Screening 1965 Sigmoidoscopy 1965 Statin Therapy 1965 Hepatitis B Vaccines (1 of 3 [...] 01/09/2024, 01/08/2024, Additional history exists Influenza Vaccine (#1) 2025 04/14/2020, 2019 DTaP,Tdap,and Td Vaccines (3 - Tdap) 01/08/2026 01/09/2016, 01/31/2007 Colon Cancer Screening 01/08/2034 Colonoscopy 01/08/2034 01/09/2024, 12/16, 01/09/2024 RSV Vaccine (60+ years old a nd patients) (1 - 1-dose 75+ series) 2042 Tobacco Screening 07/17/2042 01/09/2024 Medical Devices Implanted Type Area Vibrator Equipment Tester Device Identifier Shelf Expiration Date Model / Serial / Lot Soft 4x30 Embold - [id number] Implanted:Qty: 1 on 10/15/[address] [facility] Implant [employer] [id number] 05/23/2026 [id number] / / [id number] Soft 4x30 Embold - [id number] Implanted:Qty: 1 on 10/15/2023 by Jeffrey Srivastava MD at [facility] Implant [employer] [id number] 03/08/2024 [id number] / / [id number] Soft 5x30 Embold - [id number] Implanted:Qty: 1 on 10/15/2023 by Jeffrey Srivastava MD at [facility] Implant Canyon [employer] [id number] / / Coil Embolization Fibered Detachable Us 5x15 Embold - [id number] Implanted:Qty: 1 on 10/15/2023 by Jeffrey Srivastava MD at [facility] Implant [employer] [id number] / / Device Closure Vascular Plug 6fr Angio-Seal Vip - [id number] Implanted:Qty: 1 on 10/15/2023 by Jeffrey Srivastava MD at [facility] Implant Right: Groin [employer] [id number] 06/18/2024 [id number] / / [id number] Procedures * Due to [place] state law, this organization might not be sharing negative HIV tests. Procedure Name Priority Date/Time Associated Diagnosis Comments COMPREHENSIVE METABOLIC PANEL Routine 01/10/2024 5:49 AM EDT COLONOSCOPY 01/09/2024 from Last 3 Months or Most Recently Relevant to Health Maintenance Results * Due to [place] state law, this organization might not be sharing negative HIV tests. * (ABNORMAL) Comprehensive metabolic panel (01/10/2024 5:49 AM EDT) NA 139 135 - 145 mmol/L 01/10/2024 8:46 AM EDT [facility] K 3.4(L) 3.5 - 5.3 mmol/L 01/10/2024 8:46 AM EDT [facility] Cl 103 98 - 107 mmol/L 01/10/2024 8:46 AM EDT [facility] CO2 26 24 - 32 mmol/L 01/10/2024 8:46 AM EDT [facility] Anion Gap 10 5 - 15 01/10/2024 8:46 AM EDT [facility] Glucose 89 65 - 99 mg/dL 01/10/2024 8:46 AM EDT [facility] Creatinine 0.86 0.60 - 1.30 mg/dL 01/10/2024 8:46 AM EDT [facility] Calcium 8.5(L) 8.6 - 10.5 mg/dL 01/10/2024 8:46 AM EDT [facility] Total Protein 5.8(L) 6.0 - 8.0 g/dL 01/10/2024 8:46 AM EDT [facility] Albumin 3.4(L) 3.5 - 5.2 g/dL 01/10/2024 8:46 AM EDT [facility] Bilirubin, Total 0.4 0.2 - 1.2 mg/dL 01/10/2024 8:46 AM EDT [facility] Alkaline Phosphatase 65 35 - 129 U/L 01/10/2024 8:46 AM EDT [facility] AST 14 10 - 40 U/L 01/10/2024 8:46 AM EDT [facility] ALT 13 10 - 40 U/L 01/10/2024 8:46 AM EDT [facility] BUN 7 7 - 23 mg/dL 01/10/2024 8:46 AM EDT [facility] eGFR >90 >=60 mL/min/1. 73m2 01/10/2024 8:46 AM EDT [facility] Comment:The estimated [...] - 4.2 g/dL 01/10/2024 8:46 AM EDT [facility] A/G Ratio 1.4(L) 1.5 - 3.0 01/10/2024 8:46 AM EDT [facility] Blood Structure of peripheral vein / Unknown Venipuncture / Unknown 01/10/2024 5:49 AM EDT 01/10/2024 7:58 AM EDT us Arturo Perez MD LAB BLOOD ORDERABLES Final Result [facility] [address] [place] [address], * COLONOSCOPY (01/09/2024) Narrative Procedure Note Leah Correa MD - 01/09/2024 10:[address] 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
--- OUTSIDE RECORDS SUMMARY | 2025-03-18 09:11 | XMS_ITS | Encounter Summary ---
Author Organization [facility] Address [address] [place] [address] Care Team Providers Care Imaging Manager Name Role Phone Cecy García MD Primary Care Provider [phone] Encounter Details Date Type Department Care Team Description 11/21/2018 Orders Only Medical Records [address] [place] [address] Shanthi Norris MD [address] [place] [address] Social History Tobacco Use Types Packs/Day [...] on filedocumented in this encounter Care Teams Imaging Manager Relationship Specialty Start Date End Date Cecy García MD [address] [place] [address] PCP - General Internal Medicine 10/30/17 documented as of this encounter
--- OUTSIDE RECORDS SUMMARY | 2025-03-18 09:11 | XMS_ITS | Encounter Summary ---
Author Organization [facility] Address [address] [place] [address] Care Team Providers Care Adoption Worker Name Role Phone Unavailable Primary Care Provider Unavailabl e Reason for Visit * Reason Comments Medication Refill Encounter Details Date Type Department Care Team (Late st Contact Info) Description 04/14/2024 Refill [facility] [place] [address] [facility], [place], [place] [id number] Santi Mirza MD [address] [facility] [address] [address] Medication Refill Social History Tobacco [...] your living situation today? I have a [facility] place to live 02/20/2023 Interpersonal [...]
--- OUTSIDE RECORDS SUMMARY | 2025-03-18 09:11 | XMS_ITS | Clinical Summary ---
Author Organization [facility] Address [address] [place] [address] Phone Care Team Providers Care Metallurgical Laboratory Assistant Name Role Phone Unavailable Primary Care [...] abuse 02/22/2023 Essential hypertension 02/20/2023 Ventricular tachycardia (HC Code) 02/19/2023 Atrial fibrillation, unspecified type (HC Code) 02/19/2023 Social History Tobacco Use Types Packs/Day [...] your living situation today? I have a [facility] place to live 02/20/2023 Interpersonal Safety [...] 90 02/23/2023 1:50 PM EDT Temperature 37.4 C (99.3 F) 02/23/2023 1:50 PM EDT Respiratory Rate 18 02/23/2023 1:50 PM EDT [...] Series) 2017 Covid-19 vaccine series ( - season) 2024 Influenza vaccine 03/17/2025 Diabetes screening 02/21/2026 02/21/2023, 0 02/20/2023, 02/19/2023, Additional history exists RSV Immunization (1 - 1-dose 75+ series) 2042 Meningococcal B Vaccine Aged Out No l onger eligible based on patient's age to complete this topic Meningococcal Vaccine Aged Out No socorro mick eligible based on patient's age to complete this topic Medical Devices Implanted Type Area Sheet Metal Smith Device Identifier Shelf Expiration Date Model / Serial / Lot Lead Sprint Quattro [id number] - [id number] Implanted:Qty: 1 on 02/21/2023 by Justus Beyer MD at [facility] [address] Implant Right: VENTRICLE [employer] 11/24/2024 [id number] / [id number] V / [id number] Envelope Absorbable Antibacterial [id number] - [id number] Implanted:Qty: 1 on 02/21/2023 by Justus Beyer MD at [facility] [address] Implant Left: Chest Wall [employer] 11/26/2023 [id number] / / [id number] Icd Stuart Mri Vr Single Df4 - [id number] Implanted:Qty: 1 on 02/21/2023 by Justus Beyer MD at [facility] [address] Implant Left: Chest [employer] 07/13/2024 [id number] / [id number] / [id number] Procedures Procedure Name Priority Date/Time Associated Diagnosis Comments BASIC METABOLIC PANEL Routine 02/21/2023 6:10 AM EDT from Last 3 Months or Most Recently Relevant to Health Maintenance Results * Basic metabolic panel (02/21/2023 6:10 AM EDT) [facility] Glucose 79 65 - 110 mg/dL 02/21/2023 6:50 AM EDT [facility] Comment: Non-fastin-110 mg/dL Fasting (minimum 6 hrs): 65-99 mg/dL BUN 10 7 - 18 mg/dL 02/21/2023 6:50 AM EDT [facility] Creatinine 0.89 0.70 - 1.30 mg/dL 02/21/2023 6:50 AM EDT [facility] Sodium 138 136 - 145 mmol/L 02/21/2023 6:50 AM EDT [facility] Potassium 4.2 3.5 - 5.1 mmol/L 02/21/2023 6:50 AM EDT [facility] Comment:Specimen slightly he molyzed. Chloride 104 98 - 107 mmol/L 02/21/2023 6:50 AM EDT [facility] CO2 27 21 - 32 mmol/L 02/21/2023 6:50 AM EDT [facility] Anion Gap 7 5 - 15 mmol/L 02/21/2023 6:50 AM T [facility] Calcium 9.4 8.5 - 10.1 mg/dL 02/21/2023 6:50 AM T [facility] eGFR (Creatinine) >60 >=60 mL/min/1.7 3m2 02/21/2023 6:50 AM EDT [facility] Comment: Values < 60 mL/min/1.73 m2 may indicate CKD if present for more than three months AND creatinine is at steady state. The eGFR provides a rough estimate of kidney function. On 03/01/22 all [facility] Clinical Labs and Epic began using a [id number] formula for estimating GFR called CKD-EPI Creatinine 2020. This equation reports eGFR based on creatinine, patient age, clinical sex, and is standardized to a body surface area of 1.73 m2. For the same creatinine, this new race-free eGFR will be lower than prior reported Black eGFR results and higher than prior Non-Black eGFR results. For further guidance, please refer to the CKD: Adult Musical Instrument Maker Signature pathway. Blood Venipuncture / Unknown 02/21/2023 6:10 AM EDT 02/21/2023 6:22 AM EDT us Alessandro Og MD LAB BLOOD ORDERABLES Final Result [facility] [address] [place] [address] from Last 3 Months or Most Recently Relevant to Health Maintenance Insurance [facility] MED[facility] MEDICARE [facility] MEDICARE Advance Directives * Full Code (Latest Code Status on File) Date Activated Date Inactivated Comments 02/19/2023 1:39 AM 02/23/2023 7:02 PM
--- OUTSIDE RECORDS SUMMARY | 2025-03-18 09:11 | XMS_ITS | Encounter Summary ---
Author Organization [facility] Address [address] [place] [address] Care Team Providers Care Robotics Technologist Name Role Phone Cecy García MD Primary Care Provider Encounter Details Date Type Department Care Team Description 11/07/2017 Release of Information Medical Records [address] [place] [id number] Abstract, Provider Social History Tobacco Use Types Packs/Day Years Used Date Smoking Tobacco: Never Smokeless Tobacco: Never Sex Assigned at Date Recorded Not on file documented as of this encounter Plan of Treatment Not on file documented as of this encounter Visit Diagnoses Not on filedocumented in this encounter Care Teams Robotics Technologist Relationship Specialty Start Date End Date Cecy García MD [address] [place] [id number] PCP - General Internal Medicine 10/30/17 documented as of this encounter
--- OUTSIDE RECORDS SUMMARY | 2025-03-18 09:11 | XMS_ITS | Encounter Summary ---
Author Organization [facility] Address [address] [place] [address] Care Team Providers Care Client Support Associate Name Role Phone Cecy García MD Primary Care Provider [phone] Reason for Visit * Reason Onset Date Comments Testing 08/16/2019 Encounter Details Date Type Department Care Team Description 08/16/2019 Telephone Radiology - [address] [id number] Cecy García MD [address] [place] [address] [phone] Testing Social History Tobacco Use Types Packs/Day [...] a EXTRACRANIAL ARTERIES STUDY ; however Nitesh Osorio did not show for his appointment. We [...] on filedocumented in this encounter Care Teams Client Support Associate Relationship Specialty Start Date End Date Cecy García MD [address] [place] [address] PCP - General Internal Medicine 10/30/17 documented as of this encounter
--- OUTSIDE RECORDS SUMMARY | 2025-03-18 09:11 | XMS_ITS | Encounter Summary ---
Author Organization [facility] Address [address] [place] [address] Care Team Providers Care Manager Solution Name Role Phone Cecy García MD Primary Care Provider [phone] Encounter Details Date Type Department Care Team Description 01/09/2024 [facility] Medical Records [address] [place] [address] [facility] Social History Tobacco Use Types Packs/Day [...] on filedocumented in this encounter Care Teams Manager Solution Relationship Specialty Start Date End Date Cecy García MD [address] [place] [address] PCP - General Internal Medicine 10/30/17 documented as of this encounter
--- OUTSIDE RECORDS SUMMARY | 2025-03-18 09:11 | XMS_ITS | Clinical Summary ---
Author Organization [facility] Address [address] [address] Phone Care Team Providers Care Life Guard Name Role Phone VincentRodrick, Lisaporfirio Ayala PEST LOCATOR Primary Care Prov ider Amarjit Roberto MD Unavailable [phone] Fabricio Chaudhary MD Unavailable [phone] Allergies No known active allergies Medications amiodarone (PACERONE) 200 MG tablet Take 200 mg by mouth. 03/13/2023 Active omeprazole (PRILOSEC) 20 MG capsule Take 1 capsule by mouth every morning. 02/28/2024 Active amLODIPine (NORVASC) 5 MG tablet Take 1 tablet by mouth every morning. 04/27/2024 Active JARDIANCE 10 mg tablet Take 1 tablet by mouth every morning. 04/27/2024 Active furosemide (LASIX) 40 MG tablet Take 1 tablet by mouth every morning. 04/27/2024 Active ibuprofen (ADVIL,MOTRIN) 800 MG tablet Take 800 mg by mouth 3 (three) times a day as needed. 06/06/2024 Active spironolactone (ALDACTONE) 25 MG tablet Take 1 tablet by mouth every morning. 04/27/2024 Active metoprolol succinate (TOPROL-XL) 100 MG 24 hr tablet Take 1 tablet by mouth every morning. 05/12/2024 Active celecoxib (CELEBREX) 200 MG capsule Take 1 capsule by mouth as needed. 11/13/2024 Active melatonin 5 mg Cap EVERY DAY FOR SLEEP FOR 90 DAYS 12/19/2024 Active Active Problems Problem Noted Date Diagnosed Date ICD (implantable cardioverter-defibrillator) in place 06/17/2024 Assessment & Plan (01/22/2025 11:58 AM EDT): Device interrogated today. 12.1-year battery life. RV pacing and sensing stable. 8 A-fib episodes and 13 nonsustained VT episodes. 1% A-fib burden. No parameter changes. SPORTS MARKETING COORDINATOR 4.1%. Plan: Continue remote checks Follow-up in [...] OAC. This was discontinued by his primary warehouse distribution specialist. If he has an increase in overall burden, will reinstitute oral anticoagulation. Patient had labs done recently with his primary care doctor and warehouse distribution specialist. I will request these records. Will assess [...] Description 01/22/2025 11:30 AM EDT Office Visit [facility] [address] [place] [address] [address] Floor, [address] [place] [address] Preet Spencer MD Muse, Hannah, DNP Persistent [...] Description 08/01/2025 10:20 AM EST Office Visit [facility] [address] Floor, [address] [place] [address] Preet Spencer MD [address] [place] [address] Health Maintenance Due Date Last Done Comments [...] 2017 LIPID PANEL 03/13/2024 03/13/2019 COVID-19 VACCINE ( - 2023-2 5 season) 2024 HEPATITIS A [...] topic Medical Devices Not on file Insurance [employer] MEDICARE PART A & [place] [address] [place] [address] MEDICARE PART A [place] B Care Teams Life Guard Relationship Specialty Start Date End Date Lisa Heard FNP [address] [place] [address] [address] [place] [address] PCP - General Family Medicine 06/17/24 Amarjit Roberto MD [address] [place] [address] Dr [address] [place] [address] Orthopedic Surgery 01/22/25 Fabricio Chaudhary MD [address] [place] [address] [address] [place] [address] Cardiology 01/22/25 Additional Source Comments The information contained in this document represents components of the legal health record. It is not the complete legal health record.[facility]
--- OUTSIDE RECORDS SUMMARY | 2025-03-18 09:11 | XMS_ITS | Encounter Summary ---
Author Organization [facility] Address [address] [place] [address] Care Team Providers Care Process Coach Name Role Phone Cecy García MD Primary Care Provider [phone] Encounter Details Date Type Department Care Team Description 10/05/2021 Automotive Internet Sales Manager Report Medical Records [address] [place] [address] Shira Kim MD Social History Tobacco Use [...] on filedocumented in this encounter Care Teams Process Coach Relationship Specialty Start Date End Date Cecy García MD [address] [place] [address] PCP - General Internal Medicine 10/30/17 documented as of this encounter
[2025-03-18 09:12] LABS: Hematocrit 36.4 % (42.0-52.0); Hemoglobin 12.2 g/dl (14.0-18.0); Imm Gran Abs Auto 0.04 X10*3/uL (0.00-0.03); Imm Gran Pct Auto 0.5 % (0.0-0.4); Lymphocytes Absolute Auto 1.8 X10*3/uL (1.2-4.9); Mean Corpuscular HGB Conc 33.5 g/dl (31.0-36.0); Mean Corpuscular Hemoglobin 27.5 pg (27.0-33.0); Mean Corpuscular Volume 82.0 fL (80.0-98.0); NRBC Abs Auto 0.000 X10*3/uL (0.0-0.012); NRBC Pct Auto 0.0 /100WBC (0.0-0.2); Platelet Count 270 X10*3/uL (160-400); Red Blood Count 4.44 X10*6/uL (4.60-5.80); White Blood Count 7.8 X10*3/uL (4.8-10.8)
[2025-03-18 09:13] VITALS: BP 107/80; PULSE 72; RESP 16; O2SAT 98
[2025-03-18 09:20] LABS: INTERNATIONAL NORM RATIO 1.2 (0.9-1.1); Prothrombin Time 14.1 SEC (10.9-12.4)
[2025-03-18 09:24] LABS: Alanine Aminotransferase 10 U/L (0-40); Albumin Level 3.6 g/dL (3.5-5.0); Alkaline Phosphatase 80 U/L (39-117); Anion Gap 14 (12-20); Aspartate Amino Transferase 26 U/L (5-37); Blood Urea Nitrogen 12 mg/dL (9-16); Calcium 9.4 mg/dL (8.4-10.2); Carbon Dioxide 26 mmol/L (22-29); Chloride 100 mmol/L (96-108); Creatinine Clr Calc Pharmacy 142.4; Estimated Glomerular Filt Rate > 60; Lipase 65 U/L (8-78); Magnesium 1.7 mg/dL (1.6-2.6); Potassium 3.1 mmol/L (3.3-5.1); Sodium 137 mmol/L (135-145); Total Protein 7.0 g/dL (6.5-8.0)
[2025-03-18 09:31] LABS: Troponin-I High Sensitivity 4.5 ng/L (<3.5-35.0)
[2025-03-18] MEDS: iohexoL 350 MG/ML 100 ML INFUS..BTL IV (09:39)
[2025-03-18] MEDS: Potassium Chloride/H20 10 MEQ/100 ML PIGGYBACK 100 MEQ IV ×4 (10:09→12:51)
[2025-03-18] MEDS: Magnesium Hydrox/Alum Hydrox 30 ML ORAL.SUSP 15 ML PO (12:51)
[2025-03-18] MEDS: Lidocaine HCl Viscous 2 % 15 ML SOLUTION MUCOUS MEM (12:51)
[2025-03-18 13:56] VITALS: BP 110/76; PULSE 75; RESP 16; TEMP 36.7; O2SAT 99
[2025-03-18 13:57] VITALS: BP 110/76; PULSE 75; RESP 16; TEMP 36.7; O2SAT 99
== END 2025-03-18 14:07 | disposition home or self-care (01) ==
PROVIDERS: Physician Assistant Medical; Emergency Provider Emergency Medicine
DX: K29.20 Alcoholic gastritis without bleeding (principal); E87.6 Hypokalemia; R10.13 Epigastric pain; K21.9 Gastro-esophageal reflux disease without esophagitis; R10.10 Upper abdominal pain, unspecified; R68.81 Early satiety; I11.0 Hypertensive heart disease with heart failure; I50.30 Unspecified diastolic (congestive) heart failure; D50.8 Other iron deficiency anemias; I48.91 Unspecified atrial fibrillation
CPT/HCPCS: 36415; 71045; 74177; 80053; 83690; 83735; 84484; 85025; 85610; 93005; 96361; 96365; 99285; J3480; Q9967

== ENCOUNTER → 2025-03-18 08:43 | Outpatient (BNV) | payer MEDICARE, MEDICAID, SELFPAY | PROVIDERS: Emergency Provider Emergency Medicine; Visit Provider Radiology Diagnostic Radiology | DX: R10.13 Epigastric pain (principal) | CPT/HCPCS: 71045 ==

== ENCOUNTER → 2025-03-18 08:43 | Outpatient (BNV) | payer MEDICARE, MEDICAID, SELFPAY | PROVIDERS: Emergency Provider Emergency Medicine; Visit Provider Internal Medicine Cardiovascular Disease | DX: I49.1 Atrial premature depolarization (principal) | CPT/HCPCS: 93010 ==

== ENCOUNTER 2025-03-24 12:32 | Outpatient (AMB) | payer MEDICARE, MEDICAID, SELFPAY ==
[2025-03-24 12:33] VITALS: BP 110/60; PULSE 94; BMI 28.1
--- NOTE | 2025-03-24 12:33 | A.OFFVIS_ITS ---
Vital Signs 03/24/25 12:33 Height 6 ft 3 in Weight 224 lb 13.944 oz BMI 28.1 BP 110/60 Blood Pressure Location Lt brachial Position Sitting Pulse 94 Pulse Source Monitor Intake Visit Reasons: 3m follow up w device check Allergies No Known Allergies Allergy (Verified 03/18/25 08:16) Medication List - Last Reconciled 03/24/25 by Fabricio Chaudhary MD blood pressure monitor (Blood Pressure Kit) As directed cholecalciferol (vitamin D3) 50 mcg PO DAILY 90 days empagliflozin (Jardiance) 10 mg PO DAILY [Folding Front Wheeled walker Duration: 99 days] furosemide 40 mg PO DAILY mecobalamin (vitamin B12) 1,000 mcg sublingual BEDTIME 90 days MDD 1000mcg melatonin 5 mg PO BEDTIME PRN 2 months metoprolol succinate ER (Toprol XL) 100 mg PO DAILY miscellaneous medical supply (Blood Pressure Cuff) As directed omeprazole 20 mg PO BID spironolactone 25 mg See Protocol PO DAILY sucralfate 1 g PO Q6H HPI Comments Details: Nitesh returns for follow-up regarding atrial fibrillation and cardiomyopathy. Complicated history. History of atrial fibrillation and prior cardioversions. He was maintained on flecainide. In 2022, he was in [place] during camping for the summer time. At that time, he was drinking a lot of alcohol. Following that, presyncopal type symptoms leading to emergent medical care. Apparently, he was in atrial fibrillation with rapid rate that degenerated into ventricular tachycardia type rhythm. That required emergent cardioversion. Eventually, admitted to local hospital where he underwent cardiac catheterization as well as ICD placement. In 2023, he has had multiple hospitalizations for GI bleeding and has been transferred to [facility]. After this, he underwent atrial fibrillation ablation. He is off the amiodarone and Eliquis. Most recently, he has had yet another hospitalization for pancreatic issues. It seems he has lost lot of weight and for the most part he is doing well. No clear-cut cardiac symptoms. [facility] Medical History Osteoarthritis History of blood transfusion PAF (paroxysmal atrial fibrillation) HTN (hypertension) (HFpEF) heart failure with preserved ejection fraction Ventricular tachycardia Anemia Acute pancreatitis Pancreatic pseudocyst Acute heart failure with preserved ejection fraction (HFpEF) Acute exacerbation of CHF (congestive heart failure) Morbid obesity Gastrointestinal bleeding History of cardioversion FARHEEN on CPAP Alcohol abuse Surgical History AICD (automatic cardioverter/defibrillator) present (~2022) Hx of cardiac catheterization (02/2023) History of left hip replacement (~2017) History of cardiac radiofrequency ablation (04/2024) History of esophagogastroduodenoscopy (EGD) (04/2024) Hx of colonoscopy (07/24/24) Status post ORIF of fracture of ankle Family History Mother HTN (hypertension) Diabetes mellitus Father Diabetes mellitus HTN (hypertension) Maternal Uncle Colon cancer Social History Household Members: Significant Other Household Members Other:: GF, daughter Housing: Apartment Are you a primary home day care provider to a significant other at home: No Do you presently have visiting nurse or other home services: No Alcohol intake: former Comment: pt prefer own socks Patient Tobacco Use Status: Never used Tobacco e-Cigarette/Vaping Use: Never Used Second Hand Smoke Exposure: No Substance Use Type: Marijuana Advance Directives Date on File: 01/25/21 service: No Current occupational status: retired Current occupation: rt handed Cognitive needs: No Hearing needs: No Vision needs: No Review of Systems Const Denies weakness ENT Denies dizziness Card Denies chest pain, Denies chest pain with activity, Denies syncope, Denies rapid heart rate, Denies pedal edema, Denies edema, Denies leg edema, Denies lightheadedness, Denies palpitations, Denies dyspnea, Denies dyspnea on exertion and Denies orthopnea Resp Denies cough, Denies dyspnea and Denies dyspnea on exertion GI Denies hematochezia and Denies change in stool character Musc Denies abnormal gait, Denies muscle cramps, Denies muscle weakness, Denies numbness, Denies radiating pain into limb and Denies tingling Neuro Denies abnormal gait, Denies dizziness, Denies syncope, Denies numbness, Denies tingling and Denies weakness Endo Denies palpitations Physical Exam Vital Signs: Last Vital Signs Pulse 94 03/24/25 12:33 BP 110/60 03/24/25 12:33 BMI result Body Mass Index 28.1 Const General: comfortable and no acute distress Orientation/consciousness: patient oriented x3 HEENT Other: Unremarkable Head: Yes normal to inspection Neck Neck: Yes normal visual inspection Chest Chest palpation & inspection: normal inspection of the chest Resp Auscultation: clear to auscultation bilaterally Cardio Palpation: normal PMI Heart sounds: S1 normal heart sound present, S2 normal heart sound present, no gallops, no murmurs and no rubs GI Palpation (GI): Soft to palpation Back/Spine/Pelvis Other: unremarkable Skin General skin exam: no rashes or lesions noted Neuro General: patient oriented x3 Extrem General: Yes normal to inspection Psych Mental Status: mental status grossly normal Office Procedures Cardiac Device Check Cardiac Device Check Details: ICD interrogated today. Single-chamber device, programmed VVIR. Battery status 12 years. Normal lead parameters. Atrial fibrillation burden of 0.3%. Longest episode 52 minutes. 84414-CO Cardiac Device Check, single lead implantable defibrillator Procedure code (CPT) selection complete EKG Details: EKG with underlying sinus rhythm with premature atrial complexes at 94/Min. No ischemic findings[place]. [address]-[id number], Complete Assessment & Plan Assessment & Plan (1) PAF (paroxysmal atrial fibrillation): Code(s): I48.0 - Paroxysmal atrial fibrillation Category: Medical Plan: Status post pulmonary vein isolation for atrial fibrillation from 04/2024. Remains in sinus rhythm. In the device check, low burden atrial fibrillation. We will need to be monitored. He is currently off amiodarone/Eliquis. If indeed he has higher burden of atrial fibrillation, then we will need Watchman device, due to multiple prior GI bleeding issues. Continue beta-blockers. (2) NICM (nonischemic cardiomyopathy): Code(s): I42.8 - Other cardiomyopathies Category: Medical Plan: In the past, suspected tachycardia induced cardiomyopathy. Then recovered EF. Per [place] records, apparently apical akinesis. LVEF was 64%. Cardiac catheterization 02/2023 with normal coronary arteries. Cardiac MRI with LVEF of 55%. No wall motion abnormalities. Subendocardial delayed enhancement in basal to mid anterolateral segments suggesting fibrosis from possible prior myocarditis. Other findings suggestive of diffuse myocardial fibrosis. In the most recent echocardiogram, LVEF is 55-60%. Moderately dilated right ventricle with preserved function. He is on furosemide, Jardiance, spironolactone. Valsartan no longer in his list. Per notes, it seems he had a SAUL and valsartan was stopped. (3) Ventricular tachycardia: Code(s): I47.20 - Ventricular tachycardia, unspecified Category: Medical Plan: Per [place] records, it seems he was in atrial fibrillation with very rapid rate and then started having QRS widening. Hence not clear if it is just atrial fibrillation or truly VT. Now status post ICD. (4) Alcohol abuse: Code(s): F10.10 - Alcohol abuse, uncomplicated Category: Social Hx Plan: Has cut back. (5) Morbid obesity: Code(s): E66.01 - Morbid (severe) obesity due to excess calories Category: Medical Plan: He has lost lot of weight. Was as much as 300 lb in the past but now at 224 lb today. (6) FARHEEN on CPAP: Code(s): G47.33 - Obstructive sleep apnea (adult) (pediatric); Z99.89 - Dependence on other enabling machines and devices Category: Medical Plan: Continue CPAP. Plan Discussion Notes During the visit, we discussed the patient's atrial fibrillation and the importance of monitoring the irregular beats detected by the ICD. I explained that while the ablation procedure was not 100% successful, the current irregularity is minimal and will be observed closely. Patient was informed and verbally consented to the use of an ambient scribe for clinic note documentation during this visit. Patient Instructions: - Continue using the CPAP machine for sleep apnea management. - Keep track of any symptoms or changes related to atrial fibrillation and report them to the healthcare provider. Coding Level of Care Code Est Pt Level 4 (04180) Complex EM visit Add On G2211 Diagnoses PAF (paroxysmal atrial fibrillation) I48.0 NICM (nonischemic cardiomyopathy) I42.8 Ventricular tachycardia I47.20 Alcohol abuse F10.10 Morbid obesity E66.01 FARHEEN on CPAP G47.33; Z99.89 CPT Codes Cardiac Device Check - Cardiac Device 4: 76998-JE Cardiac Device Check, single lead implantable defibrillator ([id number]) EKG - CPT: 54682-Bhytftwearxnwimdd, Complete ([id number])
--- OUTSIDE RECORDS SUMMARY | 2025-03-24 14:46 | XMS_ITS | Encounter Summary ---
Author Organization [facility] Home Health Address [address] [place] [address] Care Team Providers Care Cleaner And Preparer Name Role Phone Unavailable Primary Care Provider Unavailabl e Reason for Visit * Reason Comments Med Change Request Encounter Details Date Type Department Care Team (Late st Contact Info) Description 03/23/2023 Refill [facility] [place] [address] [facility], [address], [place] [id number] Santi Mirza MD [address] [facility] [address] [place] [address] Med Change Request Social History [...] your living situation today? I have a [facility] place to live 02/20/2023 Interpersonal Safety [...]
--- OUTSIDE RECORDS SUMMARY | 2025-03-24 14:46 | XMS_ITS | Encounter Summary ---
Author Organization [facility] and Home Health Address [address] [place] [address] Care Team Providers Care Reading Efficiency Course Director Name Role Phone Unavailable Primary Care Provider Unavailabl e Encounter Details Date Type Department Care Team (Late st Contact Info) Description 03/22/2023 Scanned Document [facility] Cardiology [place] [address] [facility], [address] [address] Provider, Historical . Social History Tobacco Use [...] your living situation today? [facility] a [facility] place to [facility] 02/20/2023 Interpersonal Safety [...]
--- OUTSIDE RECORDS SUMMARY | 2025-03-24 14:46 | XMS_ITS | Clinical Summary ---
Author Organization [facility] [address] Address [address] [place] [address] Phone Care Team Providers Care Dining Room Attendant Name Role Phone Unavailable Primary [...] this topic Medical Devices Implanted Type Area Paperhanger And Painter Device Identifier Shelf Expiration Date Model / Serial / Lot Lead Sprint Quattro [id number] - [id number] Implanted:Qty: 1 on 02/21/2023 by Justus Beyer MD at [facility] [address] Implant Right: VENTRICLE [employer] 11/24/2024 [id number] / [id number] V / [id number] Envelope Absorbable Antibacterial [id number] - [id number] Implanted:Qty: 1 on 02/21/2023 by Justus Beyer MD at [facility] [address] Implant Left: Chest Wall [employer] 11/26/2023 [id number] / / [id number] Icd Sibley Mri Vr Single Df4 - [id number] Implanted:Qty: 1 on 02/21/2023 by Justus Beyer MD at [facility] [address] Implant Left: Chest [employer] 07/13/2024 [id number] / [id number] / [id number] Procedures Procedure Name Priority Date/Time Associated Diagnosis Comments BASIC METABOLIC PANEL Routine 02/21/2023 6:10 AM EDT from Last 3 Months or Most Recently Relevant to Health Maintenance Results * Basic metabolic panel (02/21/2023 6:10 AM EDT) [facility] Glucose 79 65 - 110 mg/dL 02/21/2023 6:50 AM EDT [facility] Comment: Non-fastin-110 mg/dL Fasting (minimum 6 hrs): 65-99 mg/dL BUN 10 7 - 18 mg/dL 02/21/2023 6:50 AM EDT [facility] Creatinine 0.89 0.70 - 1.30 mg/dL 02/21/2023 6:50 AM EDT [facility] Sodium 138 136 - 145 mmol/L 02/21/2023 6:50 AM EDT [facility] Potassium 4.2 3.5 - 5.1 mmol/L 02/21/2023 6:50 AM EDT [facility] Comment:Specimen slightly he molyzed. Chloride 104 98 - 107 mmol/L 02/21/2023 6:50 AM EDT [facility] CO2 27 21 - 32 mmol/L 02/21/2023 6:50 AM EDT [facility] Anion Gap 7 5 - 15 mmol/L 02/21/2023 6:50 AM T [facility] Calcium 9.4 8.5 - 10.1 mg/dL 02/21/2023 6:50 AM T [facility] eGFR (Creatinine) >60 >=60 mL/min/1.7 3m2 02/21/2023 6:50 AM EDT [facility] Comment: Values < 60 mL/min/1.73 m2 may indicate CKD if present for more than three months AND creatinine is at steady state. The eGFR provides a rough estimate of kidney function. On 03/01/22 all [facility] Clinical Labs and Epic began using a wed-rfou-zdfhc formula for estimating GFR called CKD-EPI Creatinine 2020. This equation reports eGFR based on creatinine, patient age, clinical sex, and is standardized to a body surface area of 1.73 m2. For the same creatinine, this new race-free eGFR will be lower than prior reported Black eGFR results and higher than prior Non-Black eGFR results. For further guidance, please refer to the CKD: Adult Flash Welding Machine Operator Signature pathway. Blood Venipuncture / Unknown 02/21/2023 6:10 AM EDT 02/21/2023 6:22 AM EDT us Alessandro Og MD LAB BLOOD ORDERABLES Final Result [facility] [address] [place] [address] from Last 3 Months or Most Recently Relevant to Health Maintenance Insurance [facility] MEDIC[facility]ICARE [facility] MEDICARE Advance Directives * Full Code (Latest Code Status on File) Date Activated Date Inactivated Comments 02/19/2023 1:39 AM 02/23/2023 7:02 PM
--- OUTSIDE RECORDS SUMMARY | 2025-03-24 14:46 | XMS_ITS | Clinical Summary ---
Author Organization [facility] Address [address] [place] [address] Care Team Providers Care Wafer Fabricator Name Role Phone Cecy García Primary Care Provider [phone] Allergies No known active allergies Medications amiodarone [...] to have alisha-duodenal hematoma so transferred to [facility]. With hypotension and lactic acidosis initially improved after 2 units of PRBCs. CTA at [facility] showed large hematoma involving the second [...] to have alisha-duodenal hematoma so transferred to [facility]. With hypotension and lactic [...] PM EDT): Patient had prior admission to [place] in February of last year where he [...] During his admission in February 2023 at [place] he had alcohol withdrawal through day 5 [...] PM EDT): Status post 2 cardioversions at [place]. Continue with Eliquis. Continue with amiodarone for [...] elevation and prior normal colonoscopy reported at [place] 8 years ago warranting return for repeat [...] in place. Patient had prior admission to [place] in February of last year where he [...] 07/17/2042 01/09/2024 Medical Devices Implanted Type Area Associate Professor Of Library Science Device Identifier Shelf Expiration Date Model / Serial / Lot Soft 4x30 Embold - [id number] Implanted:Qty: 1 on 10/15/2023 at [facility] Implant BlockScore [id number] 05/23/2026 [id number] / / [id number] Soft 4x30 Embold - [id number] Implanted:Qty: 1 on 10/15/2023 by Jeffrey Srivastava MD at [facility] Implant BlockScore [id number] 03/08/2024 [id number] / / [id number] Soft 5x30 Embold - [id number] Implanted:Qty: 1 on 10/15/2023 by Jeffrey Srivastava MD at [facility] Implant [place] [employer] [id number] / / Coil Embolization Fibered Detachable Us 5x15 Embold - [id number] Implanted:Qty: 1 on 10/15/2023 by Jeffrey Srivastava MD at [facility] Implant [employer] [id number] / / Device Closure Vascular Plug 6fr Angio-Seal Vip - [id number] Implanted:Qty: 1 on 10/15/2023 by Jeffrey Srivastava MD at [facility] Implant Right: Groin [employer] [id number] 06/18/2024 [id number] / / [id number] Procedures * Due to [place] state law, this organization might not be sharing negative HIV tests. Procedure Name Priority Date/Time Associated Diagnosis Comments COMPREHENSIVE METABOLIC PANEL Routine 01/10/2024 5:49 AM EDT COLONOSCOPY 01/09/2024 from Last 3 Months or Most Recently Relevant to Health Maintenance Results * Due to [place] state law, this organization might not be sharing negative HIV tests. * (ABNORMAL) Comprehensive metabolic panel (01/10/2024 5:49 AM EDT) NA 139 135 - 145 mmol/L 01/10/2024 8:46 AM EDT [facility] K 3.4(L) 3.5 - 5.3 mmol/L 01/10/2024 8:46 AM EDT [facility] Cl 103 98 - 107 mmol/L 01/10/2024 8:46 AM EDT [facility] CO2 26 24 - 32 mmol/L 01/10/2024 8:46 AM EDT [facility] Anion Gap 10 5 - 15 01/10/2024 8:46 AM EDT [facility] Glucose 89 65 - 99 mg/dL 01/10/2024 8:46 AM EDT [facility] Creatinine 0.86 0.60 - 1.30 mg/dL 01/10/2024 8:46 AM EDT [facility] Calcium 8.5(L) 8.6 - 10.5 mg/dL 01/10/2024 8:46 AM EDT [facility] Total Protein 5.8(L) 6.0 - 8.0 g/dL 01/10/2024 8:46 AM EDT [facility] Albumin 3.4(L) 3.5 - 5.2 g/dL 01/10/2024 8:46 AM EDT [facility] Bilirubin, Total 0.4 0.2 - 1.2 mg/dL 01/10/2024 8:46 AM EDT [facility] Alkaline Phosphatase 65 35 - 129 U/L 01/10/2024 8:46 AM EDT [facility] AST 14 10 - 40 U/L 01/10/2024 8:46 AM EDT [facility] ALT 13 10 - 40 U/L 01/10/2024 8:46 AM EDT [facility] BUN 7 7 - 23 mg/dL 01/10/2024 8:46 AM EDT [facility] eGFR >90 >=60 mL/min/1. 73m2 01/10/2024 8:46 AM EDT [facility] Comment:The estimated glomer [...] - 4.2 g/dL 01/10/2024 8:46 AM EDT [facility] A/G Ratio 1.4(L) 1.5 - 3.0 01/10/2024 8:46 AM EDT [facility] Blood Structure of peripheral vein / Unknown Venipuncture / Unknown 01/10/2024 5:49 AM EDT 01/10/2024 7:58 AM EDT us Arturo Perez MD LAB BLOOD ORDERABLES Final Result [facility] [address] [place] [address], * COLONOSCOPY (01/09/2024) Narrative Procedure Note Leah Correa MD - 01/09/2024 10:13 AM EDT [facility] Gastroenterology Patient Name: Nitesh Osorio Procedure Date: 01/09/2024 10:13 AM Date of : 1965 Admit Type: Inpatient Age: 58 Room: [place] [address] Gender: Male Note Status: Finalized Attending MD: [...] for polyp removal. Will need MAC. Leah Corera MD 01/09/2024 11:37:23 AM This report has been signed electronically. Number of Addenda: 0 Note Initiated On: 01/09/2024 10:13 AM Leah Correa MD PROVATION PROCEDURES Final Resul t from Last 3 Months or Most Recently Relevant to Health Maintenance Insurance [facility] [address] Advance Directives Documents on File Type Date Recorded Patient Reflexologist Expl anation Health Care Proxy 10/17/2023 9:51 [...] [facility] Care Teams Wafer Fabricator Relationship Specialty Start Date End Date Cecy García PCP - General Internal Medicine 10/27/23
--- OUTSIDE RECORDS SUMMARY | 2025-03-24 14:46 | XMS_ITS | Encounter Summary ---
Author Organization [facility]up and Home Health Address [address] [place] [address] Care Team Providers Care Kiln Remover Name Role Phone Unavailable Primary Care Provider Unavailabl e Reason for Visit * Reason Comments Medication Refill Encounter Details Date Type Department Care Team (Late st Contact Info) Description 04/14/2023 Refill [facility] [place] [address] [facility], [place], [place] [id number] Santi Mirza MD [address] [facility] [address] [place] [address] Medication Refill Social History Tobacco [...]
--- OUTSIDE RECORDS SUMMARY | 2025-03-24 14:46 | XMS_ITS | Encounter Summary ---
Author Organization [facility] and Home Health Address [address] [place] [address] Care Team Providers Care Marinator Name Role Phone Unavailable Primary Care Provider Unavailabl e Reason for Visit * Reason Comments Medication Refill Encounter Details Date Type Department Care Team (Late st Contact Info) Description 04/14/2024 Refill [facility] [place] [address] [facility], [address], [place] [phone] Santi Mirza MD [address] [facility] [address] [place] [address] Medication Refill Social History Tobacco [...] your living situation today? I have a [facility] place to live 02/20/2023 Interpersonal Safety Answer [...]
--- OUTSIDE RECORDS SUMMARY | 2025-03-24 14:47 | XMS_ITS | Clinical Summary ---
Author Organization [facility] Address [address] [address] Phone Care Team Providers Care Frame Cleaner Name Role Phone VincentRodrick, Lisaporfirio Ayala PARTS DRIVER Primary Care Prov ider Amarjit Roberto MD Unavailable [phone] Fabricio Chaudhary MD Unavailable [phone] Allergies No known active allergies Medications amiodarone [...] episodes. 1% A-fib burden. No parameter changes. PRINTING MANAGER 4.1%. Plan: Continue remote checks Follow-up in [...] OAC. This was discontinued by his primary medical office rep. If he has an increase in overall burden, will reinstitute oral anticoagulation. Patient had labs done recently with his primary care doctor and medical office rep. I will request these records. Will assess [...] Description 01/22/2025 11:30 AM EDT Office Visit [facility] [address] [place] [address] [address]rd Floor, [address] [place] [address] Preet Spencer MD Muse, Hannah, DNP Persistent [...] Description 08/01/2025 10:20 AM EST Office Visit [facility] [address] Floor, [address] [place] [address] Preet Spencer MD [address] [place] [phone] [email or web address] Health Maintenance Due Date Last Done Comments [...] of 2) 2017 LIPID PANEL 03/13/2024 03/13/2019 INFLUENZA VACCINE (#1) 2025 COVID-19 VACCINE (1 - 2023-2 5 season) 2025 HEPATITIS A VACCINES Aged Out No long [...] Insurance [place] [facility] [place] & B Care Teams Frame Cleaner Relationship Specialty Start Date End Date Lisa Heard FNP [address] [place] [address] [facility] [address] [place] [address] PCP - General Family Medicine 06/17/24 Amarjit Roberto MD [address] [place] [address] Dr [place] [address] [place] [address] Orthopedic Surgery 01/22/25 Fabriico Chaudhary MD [address] [place] [address] Cardiology 01/22/25 Additional Source Comments The information contained in this document represents components of the legal health record. It is not the complete legal health record.[facility]
--- OUTSIDE RECORDS SUMMARY | 2025-03-24 14:47 | XMS_ITS | Clinical Summary ---
Author Organization [facility] Address [id number] [place] [id number] Care Team Providers Care Avionics Shop Supervisor Name Role Phone Cecy García MD Primary Care Provider [phone] Active Problems Problem Noted Date Diagnosed Date Hypertension 06/10/2019 Bilateral knee pain 01/18/2018 Surgical History Surgery Date Site/Laterality Comments ANKLE FRACTURE SURGERY PROCEDURE: [place] OPEN TREATMENT MEDIAL MALLEOLUS FRACTURE KNEE ARTHROSCOPY W/ MENISCAL REPAIR PROCEDURE: [place] ARTHROSCOPY KNEE W/MENISCUS RPR MEDIAL/LATERAL Family History [...] Result * Hepatitis C Screening (10/15/2023) Pathologist [facility] Hepatitis C Screening abstracted us Historical Provider [...] Recently Relevant to Health Maintenance Care Teams Avionics Shop Supervisor Relationship Specialty Start Date End Date Cecy García MD [address] [place] [address] PCP - General Internal Medicine 10/30/17
== END 2025-03-24 12:52 | disposition home or self-care (01) ==
LOC: HO.HCS 12:32
PROVIDERS: Visit Provider Internal Medicine
DX: I48.0 Paroxysmal atrial fibrillation (principal); I42.8 Other cardiomyopathies; I47.20 Ventricular tachycardia, unspecified; F10.10 Alcohol abuse, uncomplicated; E66.01 Morbid (severe) obesity due to excess calories; G47.33 Obstructive sleep apnea (adult) (pediatric); Z99.89 Dependence on other enabling machines and devices
CPT/HCPCS: 93010; 93282; 99214; G2211

== ENCOUNTER → 2025-03-24 12:32 | Outpatient (BNVA) | payer MEDICARE, MEDICAID, SELFPAY | PROVIDERS: Visit Provider Internal Medicine | DX: Z45.018 Encounter for adjustment and management of other part of cardiac pacemaker (principal); I48.0 Paroxysmal atrial fibrillation; I47.20 Ventricular tachycardia, unspecified | CPT/HCPCS: 93005; 99212 ==

== ENCOUNTER → 2025-04-15 23:59 | Outpatient (BNV) | payer MEDICARE, MEDICAID, SELFPAY ==
--- NOTE | 2025-04-21 13:06 | A.OFFVIS_ITS ---
Intake Visit Reasons: Remote HF monitoring- [employer] Allergies No Known Allergies Allergy (Verified 03/18/25 08:16) PFSH Medical History Osteoarthritis History of blood transfusion PAF (paroxysmal atrial fibrillation) HTN (hypertension) (HFpEF) heart failure with preserved ejection fraction Ventricular tachycardia Anemia Acute pancreatitis Pancreatic pseudocyst Acute heart failure with preserved ejection fraction (HFpEF) Acute exacerbation of CHF (congestive heart failure) Morbid obesity Gastrointestinal bleeding History of cardioversion FARHEEN on CPAP Alcohol abuse Surgical History AICD (automatic cardioverter/defibrillator) present (~2022) Hx of cardiac catheterization (02/2023) History of left hip replacement (~2017) History of cardiac radiofrequency ablation (04/2024) History of esophagogastroduodenoscopy (EGD) (04/2024) Hx of colonoscopy (07/24/24) Status post ORIF of fracture of ankle Family History Mother HTN (hypertension) Diabetes mellitus Father Diabetes mellitus HTN (hypertension) Maternal Uncle Colon cancer Social History Household Members: Significant Other Household Members Other:: GF, daughter Housing: Apartment Are you a primary child day care teacher to a significant other at home: No Do you presently have visiting nurse or other home services: No Alcohol intake: former Comment: pt prefer own socks Patient Tobacco Use Status: Never used Tobacco e-Cigarette/Vaping Use: Never Used Second Hand Smoke Exposure: No Substance Use Type: Marijuana Advance Directives Date on File: 01/25/21 service: No Current occupational status: retired Current occupation: rt handed Cognitive needs: No Hearing needs: No Vision needs: No Office Procedures Cardiac Device Check Cardiac Device Check Details: Date of service- 04/15/2025; based on impedance data and physiological variables, there is possible OptiVol fluid accumulation from 27 of March to . [id number] Cardiac Device Interrogation, cardio physiologic monitor Procedure code (CPT) selection complete Assessment & Plan Assessment & Plan (1) ICD (implantable cardioverter-defibrillator) in place: Code(s): Z95.810 - Presence of automatic (implantable) cardiac defibrillator Category: Medical (2) NICM (nonischemic cardiomyopathy): Code(s): I42.8 - Other cardiomyopathies Category: Medical (3) PAF (paroxysmal atrial fibrillation): Code(s): I48.0 - Paroxysmal atrial fibrillation Category: Medical Plan x Coding Level of Care Code Procedure Only Diagnoses ICD (implantable cardioverter-defibrillator) in place Z95.810 NICM (nonischemic cardiomyopathy) I42.8 PAF (paroxysmal atrial fibrillation) I48.0 CPT Codes Cardiac Device Check - Cardiac Device 15: [id number] Cardiac Device Interrogation, cardio physiologic monitor ([id number])
== END ==
PROVIDERS: Visit Provider Internal Medicine
DX: I42.8 Other cardiomyopathies (principal); Z95.810 Presence of automatic (implantable) cardiac defibrillator; I48.0 Paroxysmal atrial fibrillation
CPT/HCPCS: 93297

== ENCOUNTER → 2025-05-16 23:59 | Outpatient (BNV) | payer MEDICARE, MEDICAID, SELFPAY ==
--- NOTE | 2025-05-27 12:22 | MHC.OFFVIS ---
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 Allergies No Known Allergies Allergy (Verified 05/19/25 10:28) PFSH Medical History Olecranon bursitis of left elbow Distal radius fracture, right Distal radius fracture, left Osteoarthritis History of blood transfusion PAF (paroxysmal atrial fibrillation) HTN (hypertension) (HFpEF) heart failure with preserved ejection fraction Ventricular tachycardia Anemia Acute pancreatitis Pancreatic pseudocyst Acute heart failure with preserved ejection fraction (HFpEF) Acute exacerbation of CHF (congestive heart failure) Morbid obesity Gastrointestinal bleeding History of cardioversion FARHEEN on CPAP Alcohol abuse Surgical History AICD (automatic cardioverter/defibrillator) present (~2022) Hx of cardiac catheterization (02/2023) History of left hip replacement (~2017) History of cardiac radiofrequency ablation (04/2024) History of esophagogastroduodenoscopy (EGD) (04/2024) Hx of colonoscopy (07/24/24) Status post ORIF of fracture of ankle Family History Mother HTN (hypertension) Diabetes mellitus Father Diabetes mellitus HTN (hypertension) Maternal Uncle Colon cancer Social History Household Members: Significant Other Household Members Other:: GF, daughter Housing: Apartment Are you a primary health care coordinator to a significant other at home: No Do you presently have visiting nurse or other home services: No Alcohol intake: former Comment: pt prefer own socks Patient Tobacco Use Status: Never used Tobacco Tobacco use type: Cigarette e-Cigarette/Vaping Use: Never Used Second Hand Smoke Exposure: No Substance Use Type: Marijuana Advance Directives Date on File: 01/25/21 service: No Current occupational status: retired Current occupation: rt handed Cognitive needs: No Hearing needs: No Vision needs: No Office Procedures Cardiac Device Check Cardiac Device Check Details: Date of service- 05/16/2025; based on impedance data and physiological variables, there is possible OptiVol fluid accumulation from 18 of May to ongoing. [id number] Cardiac Device Interrogation, cardio physiologic monitor Procedure code (CPT) selection complete Assessment & Plan Assessment & Plan (1) ICD (implantable cardioverter-defibrillator) in place: Code(s): Z95.810 - Presence of automatic (implantable) cardiac defibrillator Category: Medical (2) NICM (nonischemic cardiomyopathy): Code(s): I42.8 - Other cardiomyopathies Category: Medical (3) (HFpEF) heart failure with preserved ejection fraction: Code(s): I50.30 - Unspecified diastolic (congestive) heart failure Category: Medical Plan x Coding Level of Care Code Procedure Only Diagnoses ICD (implantable cardioverter-defibrillator) in place Z95.810 NICM (nonischemic cardiomyopathy) I42.8 (HFpEF) heart failure with preserved ejection fraction I50.30 CPT Codes Cardiac Device Check - Cardiac Device 15: [id number] Cardiac Device Interrogation, cardio physiologic monitor ([id number])
== END ==
PROVIDERS: Visit Provider Internal Medicine
DX: I42.8 Other cardiomyopathies (principal); Z95.810 Presence of automatic (implantable) cardiac defibrillator; I50.30 Unspecified diastolic (congestive) heart failure
CPT/HCPCS: 93297

== ENCOUNTER → 2025-05-17 23:59 | Outpatient (BNV) | payer MEDICARE, MEDICAID, SELFPAY ==
--- NOTE | 2025-05-21 16:15 | MHC.OFFVIS ---
Intake Visit Reasons: Remote HF monitoring- Medtronic Allergies No Known Allergies Allergy (Verified 05/19/25 10:28) PFSH Medical History Olecranon bursitis of left elbow Distal radius fracture, right Distal radius fracture, left Osteoarthritis History of blood transfusion PAF (paroxysmal atrial fibrillation) HTN (hypertension) (HFpEF) heart failure with preserved ejection fraction Ventricular tachycardia Anemia Acute pancreatitis Pancreatic pseudocyst Acute heart failure with preserved ejection fraction (HFpEF) Acute exacerbation of CHF (congestive heart failure) Morbid obesity Gastrointestinal bleeding History of cardioversion FARHEEN on CPAP Alcohol abuse Surgical History AICD (automatic cardioverter/defibrillator) present (~2022) Hx of cardiac catheterization (02/2023) History of left hip replacement (~2017) History of cardiac radiofrequency ablation (04/2024) History of esophagogastroduodenoscopy (EGD) (04/2024) Hx of colonoscopy (07/24/24) Status post ORIF of fracture of ankle Family History Mother HTN (hypertension) Diabetes mellitus Father Diabetes mellitus HTN (hypertension) Maternal Uncle Colon cancer Social History Household Members: Significant Other Household Members Other:: GF, daughter Housing: Apartment Are you a primary nurse behavioral health care to a significant other at home: No Do you presently have visiting nurse or other home services: No Alcohol intake: former Comment: pt prefer own socks Patient Tobacco Use Status: Never used Tobacco Tobacco use type: Cigarette e-Cigarette/Vaping Use: Never Used Second Hand Smoke Exposure: No Substance Use Type: Marijuana Advance Directives Date on File: 01/25/21 service: No Current occupational status: retired Current occupation: rt handed Cognitive needs: No Hearing needs: No Vision needs: No Office Procedures Cardiac Device Check Cardiac Device Check Details: Date of service- 05/17/2025; based on impedance data and physiological variables, there is possible OptiVol fluid accumulation from 18 of May to ongoing. [id number] Cardiac Device Interrogation, cardio physiologic monitor Procedure code (CPT) selection complete Assessment & Plan Assessment & Plan (1) ICD (implantable cardioverter-defibrillator) in place: Code(s): Z95.810 - Presence of automatic (implantable) cardiac defibrillator Category: Medical (2) NICM (nonischemic cardiomyopathy): Code(s): I42.8 - Other cardiomyopathies Category: Medical Plan x Coding Level of Care Code Procedure Only Diagnoses ICD (implantable cardioverter-defibrillator) in place Z95.810 NICM (nonischemic cardiomyopathy) I42.8 CPT Codes Cardiac Device Check - Cardiac Device 15: [id number] Cardiac Device Interrogation, cardio physiologic monitor ([id number])
== END ==
PROVIDERS: Visit Provider Internal Medicine
DX: I42.8 Other cardiomyopathies (principal); Z95.810 Presence of automatic (implantable) cardiac defibrillator
CPT/HCPCS: 93297

== ENCOUNTER 2025-05-19 10:00 | Outpatient (AMB) | payer MEDICARE, MEDICAID, SELFPAY ==
[2025-05-19 10:12] VITALS: BP 100/68; PULSE 87; TEMP 36.3; O2SAT 99; BMI 28.5
--- NOTE | 2025-05-19 10:12 | MHC.PC.OV ---
Vital Signs 05/19/25 10:12 Height 6 ft 3 in Weight 228 lb BMI 28.5 BP 100/68 Blood Pressure Location Lt brachial Position Sitting Pulse 87 Pulse Source Pulse Oximeter Temp 97.3 F Temp Source Temporal Artery Scan Pulse Oximetry (%) 99 Oxygen Delivery Method Room Air Intake Visit Reasons: Annual Exam Health And Safety Inspector Required: No Accompanied by: Self / Same As Patient Allergies No Known Allergies Allergy (Verified 05/19/25 10:28) Medication List - Last Reconciled 05/19/25 by Liliane Mata PA-C blood pressure monitor (Blood Pressure Kit) As directed celecoxib (Celebrex) 200 mg PO DAILY PRN empagliflozin (Jardiance) 10 mg PO DAILY [Folding Front Wheeled walker Duration: 99 days] furosemide 40 mg PO DAILY metoprolol succinate ER (Toprol XL) 100 mg PO DAILY miscellaneous medical supply (Blood Pressure Cuff) As directed omeprazole 20 mg PO BID spironolactone 25 mg PO DAILY sucralfate 1 g PO Q6H Tobacco use date assessed: 05/19/25 Dental Screening Dental Screen Date: 05/19/25 Did you have a dental visit in the last 12 months?: No Did you have a dental problem in the last 6 months where you did not have access to dental care?: No Was dental information given to patient?: Patient has dentist HPI Annual Exam HPI Details 59-year-old male with past medical history of hypertension, alcohol use disorder, atrial fibrillation, ICM with pacemaker, heart failure with preserved ejection fraction and history of GI bleed last seen 02/2025 coming in for annual exam. In review of the notes, patient was seen by Cardiology 03/2025 low burden of atrial fibrillation remain off amiodarone and Eliquis and continued on beta-blockers. He is continued on furosemide, Jardiance, spironolactone for cardiomyopathy and continued on CPAP. Presenting for an annual physical examination. The patient has a history of atrial fibrillation and reports a follow-up with cardiology about two months ago, after which his Eliquis and amiodarone were discontinued. He is under remote monitoring, which recently detected an asymptomatic episode of AFib with an overall low burden of 0.4%. 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 He has seen improvement in his acid reflux since adjusting his diet. The patient reports chronic right shoulder pain, describing the shoulder as completely shot. A cortisone injection was recommended years ago, but he declined. Colonoscopy: 07/2024 PSA: ordered vaccines: Td UTD eye doctor: [facility] Medical History Olecranon bursitis of left elbow Distal radius fracture, right Distal radius fracture, left Osteoarthritis History of blood transfusion PAF (paroxysmal atrial fibrillation) HTN (hypertension) (HFpEF) heart failure with preserved ejection fraction Ventricular tachycardia Anemia Acute pancreatitis Pancreatic pseudocyst Acute heart failure with preserved ejection fraction (HFpEF) Acute exacerbation of CHF (congestive heart failure) Morbid obesity Gastrointestinal bleeding History of cardioversion FARHEEN on CPAP Alcohol abuse Surgical History AICD (automatic cardioverter/defibrillator) present (~2022) Hx of cardiac catheterization (02/2023) History of left hip replacement (~2017) History of cardiac radiofrequency ablation (04/2024) History of esophagogastroduodenoscopy (EGD) (04/2024) Hx of colonoscopy (07/24/24) Status post ORIF of fracture of ankle Family History Mother HTN (hypertension) Diabetes mellitus Father Diabetes mellitus HTN (hypertension) Maternal Uncle Colon cancer Social History Household Members: Significant Other Household Members Other:: GF, daughter Housing: Apartment Are you a primary healthcare financial analyst to a significant other at home: No Do you presently have visiting nurse or other home services: No Alcohol intake: former Comment: pt prefer own socks Patient Tobacco Use Status: Never used Tobacco Tobacco use type: Cigarette e-Cigarette/Vaping Use: Never Used Second Hand Smoke Exposure: No Substance Use Type: Marijuana Advance Directives Date on File: 01/25/21 service: No Current occupational status: retired Current occupation: rt handed Cognitive needs: No Hearing needs: No Vision needs: No Questionnaire PHQ-9 Over the last 2 weeks, how often have you been bothered by any of the following problems? 1. Little interest or pleasure in doing things: not at all 2. Feeling down, depressed, or hopeless: not at all 3. Trouble falling or staying asleep, or sleeping too much: not at all 4. Feeling tired or having little energy: not at all 5. Poor appetite or overeating: not at all 6. Feeling bad about yourself - or that you are a failure or have let yourself or your family down: not at all 7. Trouble concentrating on things, such as reading the newspaper or watching television: not at all 8. Moving or speaking so slowly that other people could have noticed. Or the opposite - being so fidgety or restless that you have been moving around a lot more than usual: not at all 9. Thoughts that you would be better off or of hurting yourself in some way: not at all Total score: 0 Depression Screening Interpretation: Negative Depression Screening Done: Yes Source: Developed by Drs. Ace Beckwith, Evelyne Ramirez, Carlos Garcia and colleagues, with an educational yaz from [employer]. Thrive Questionnaire Date Thrive assessed: 05/19/25 I am a: Patient What is your living situation today?: I have a steady place to live Do you have trouble paying for medicines?: No Do you have trouble getting transportation to medical appointments?: No Do you have trouble paying your heating and electricity bill?: No Do you have trouble taking care of your child, family member or friend?: No Do you have trouble with day-to-day activities such as bathing, preparing meals, shopping, managing finances, etc.?: No Are you currently unemployed and looking for a job?: No Are you interested in more education?: No Please select the resources that you would like help with: None THRIVE Score: 0 AUDIT C Alcohol Use Questionnaire (AUDIT-C) 1. How often do you have a drink containing alcohol?: 2-3 times a week 2. How many drinks containing alcohol do you have on a typical day when you are drinking?: 1 or 2 Total Score: 3 DIEUDONNE-7 AMB Questionnaire DIEUDONNE-7 Date DIEUDONNE - 7 assessed: 05/19/25 Feeling nervous, anxious, or on edge: 0 = Not at all Not being able to stop or control worryin = Not at all Worrying too much about different things: 0 = Not at all Trouble relaxin = Several days Being so restless that it is hard to sit still: 0 = Not at all Becoming easily annoyed or irritable: 0 = Not at all Feeling afraid as if something awful might happen: 0 = Not at all Total DIEUDONNE-7 score (0-4 normal; 5-9 mild; 10-14 moderate; 15-21 severe): 1 Source: Developed by Drs. Ace Beckwith, Evelyne Ramirez, Carlos Garcia and colleagues, with an educational yaz from [employer]. Review of Systems Const Denies body aches, Denies fatigue, Denies fever(s), Denies frequent falls, Denies headache(s) and Denies weakness Eyes Reports no additional complaints and Denies change in vision ENT Denies dysphagia, Denies dizziness, Denies facial pain, Denies headache(s) and Denies odynophagia Card Denies chest pain, Denies syncope, Denies irregular heart rhythm, Denies leg edema, Denies lightheadedness and Denies dyspnea Resp Denies cough and Denies dyspnea GI Denies abdominal pain, Denies constipation, Denies dysphagia, Denies dyspepsia, Denies diarrhea, Denies nausea, Denies odynophagia and Denies vomiting Denies dysuria, Denies urinary frequency, Denies urinary hesitancy and Denies urinary urgency Musc Denies back pain and Denies myalgias Skin/Breast Reports system reviewed and no additional complaints, except as documented Neuro Denies dizziness, Denies syncope, Denies frequent falls, Denies headache(s) and Denies weakness Psych Reports no additional complaints Endo Denies fatigue Physical exam (Primary Care) Vital Signs: Last Vital Signs Temp 97.3 F 05/19/25 10:12 Pulse 87 05/19/25 10:12 BP 100/68 05/19/25 10:12 Pulse Ox 99 05/19/25 10:12 Oxygen Delivery Method Room Air 05/19/25 10:12 BMI result Body Mass Index 28.5 Tobacco/Smoking Status: Tobacco use Status Tobacco use date assessed 05/19/25 05/19/25 10:22 Patient Tobacco Use Status Never used Tobacco 05/19/25 10:22 Tobacco use type Cigarette 05/19/25 10:22 e-Cigarette/Vaping Use Never Used 05/19/25 10:22 PHQ-9: PHQ-9 Score PHQ-9: Total score 0 05/19/25 10:27 Depression Screening Interpretation: Negative Thrive Assessment: Date of Thrive Assessment Date Thrive assessed 05/19/25 05/19/25 10:22 Const General: cooperative, healthy appearing, comfortable and no acute distress Orientation/consciousness: patient oriented x3 [facility] Head: Yes normocephalic Ears: hearing grossly normal bilaterally, external ears normal, TM's normal bilaterally and EAC's normal General nose exam: Normal external nose present Face and sinus: Yes normal facial exam and Yes sinuses nontender Mouth: Normal oral and palatal mucosa present and tongue normal Throat: Yes posterior oropharynx normal Eyes General: appearance normal, both eyes and all related structures Conjunctivae: conjunctivae normal Pupils: Equal, round and reactive pupils present EOM: EOMs intact bilaterally and No Nystagmus present Neck Neck: Yes normal visual inspection, Yes full ROM and Yes no lymphadenopathy Chest Chest palpation & inspection: normal inspection of the chest Resp Effort & Inspection: normal respiratory effort Auscultation: clear to auscultation bilaterally, no crackles, no rales, no rhonchi, no wheezes and breath sounds present Cardio Rate: regular rate Rhythm: regular rhythm Peripheral pulses: radial pulses present and dorsalis pedis present GI Inspection: Yes normal to inspection and No Abdominal wall edema Palpation (GI): Soft to palpation, not firm and nontender Auscultation: normal bowel sounds Rectal Exam - Male: Yes deferred General: Yes no CVA tenderness Back/Spine/Pelvis Back: no CVA tenderness Skin General skin exam: no rashes or lesions noted Neuro General: patient oriented x3 Cranial nerves: Yes Equal, round and reactive pupils present, Yes Midline tongue present, Yes Ability to bilaterally elevate shoulders present and No Nystagmus present Gait exam (Neuro): Normal gait present Extrem General: Yes normal to inspection, Yes full ROM, No no pedal edema and No edema Psych Speech and movement: Normal speech and movement present Affect: normal affect Insight: Good insight present (Psych) Judgement: Good judgement present (Psych) Coding Level of Care Code Est Pt Prev Care 40-64y([id number]) Diagnoses Annual physical exam Z00.00 HTN (hypertension) I10 PAF (paroxysmal atrial fibrillation) I48.0 Alcoholic fatty liver K70.0 FARHEEN on CPAP G47.33; Z99.89 Osteoarthritis of right hip M16.11 Hypercholesterolemia E78.00 Right shoulder pain M25.511 Assessment & Plan Assessment & Plan (1) Annual physical exam: Code(s): Z00.00 - Encounter for general adult medical examination without abnormal findings Category: Medical Plan: Patient is up to date on all recommended routine screenings and vaccinations for his age. I did order for PSA as well. Healthy diet and regular exercise is encouraged. (2) HTN (hypertension): Code(s): I10 - Essential (primary) hypertension Category: Medical Plan: Continue on current blood pressure medication. Avoid salt intake and encourage healthy diet and regular exercise. (3) PAF (paroxysmal atrial fibrillation): Code(s): I48.0 - Paroxysmal atrial fibrillation Category: Medical Plan: Continue to follow with Cardiology consideration has been made for Watchman device if PAF burden increases. (4) Alcoholic fatty liver: Code(s): K70.0 - Alcoholic fatty liver Category: Medical Plan: Healthy diet and regular exercise is encouraged. Avoid the use of alcohol. (5) FARHEEN on CPAP: Code(s): G47.33 - Obstructive sleep apnea (adult) (pediatric); Z99.89 - Dependence on other enabling machines and devices Category: Medical Plan: Uses CPAP faithfully at least 4 hours a night and benefits from this therapy. (6) Osteoarthritis of right hip: Code(s): M16.11 - Unilateral primary osteoarthritis, right hip Category: Medical Plan: Continue follow with Orthopedics. Hip replacement was canceled due to patient's concern for heart disease (7) Hypercholesterolemia: Code(s): E78.00 - Pure hypercholesterolemia, unspecified Category: Medical Plan: Avoid foods that are high in cholesterol such as red meat, fried foods, eggs and baked goods. Triglyceride goal of less than 150 and LDL goal of less than 100. Ordered for repeat blood work (8) Right shoulder pain: Code(s): M25.511 - Pain in right shoulder Category: Medical Plan: For the right shoulder pain we will obtain an XR for further evaluation. Advised patient to reach out to his orthopedics for further evaluation possible injection. Plan This note was constructed using voice recognition software. While every effort has been made to ensure accuracy and pipefitter helper, still areas may have been included sometimes these areas may affect the content or meeting of the given symptoms. Total time spent caring for the patient today was 30 minutes. This includes time spent before the visit reviewing the chart, time spent during the visit, and time spent after the visit and documentation. Patient was informed and verbally consented to the use of an ambient scribe for clinic note documentation during this visit. Orders: Orders PSA, Ultra Sensitive Today Z12.5 - Encounter for screening for malignant neoplasm of prostate TSH reflex Free T4 Today Z13.29 - Encounter for screening for other suspected endocrine disorder Vitamin D 25-OH Total Today Z13.21 - Encounter for screening for nutritional disorder Hemoglobin A1c Today Z13.1 - Encounter for screening for diabetes mellitus Comprehensive Met. Panel Today I50.30 - Unspecified diastolic (congestive) heart failure, Z00.00 - Encounter for general adult medical examination without abnormal findings Lipid Panel Today E78.00 - Pure hypercholesterolemia, unspecified Vitamin B12 and Folate Today Z13.21 - Encounter for screening for nutritional disorder XR shoulder RT min 2V Today M25.511 - Pain in right shoulder Referrals Optometry Referral I10 - Essential (primary) hypertension, Z00.00 - Encounter for general adult medical examination without abnormal findings Medications: Discontinued sucralfate Discontinued Reason: Patient no longer taking 1 g PO Q6H 112 tabs 0RF
--- OUTSIDE RECORDS SUMMARY | 2025-05-19 11:53 | XMS_ITS | Clinical Summary ---
Author Organization [facility] [address] [facility] Address [address] [place] [address] Phone Care Team Providers Care Gravure Press Operator Name Role Phone Unavailable Primary Care [...] your living situation today? [facility] 02/20/2023 Interpersonal Safety [...] 2 Dose Standard Series) 2017 Influenza vaccine 02/14/2025 Covid-19 vaccine series ( - season) 2025 Diabetes screening 02/21/2026 02/21/2023, 0 02/20/2023, 02/19/2023, Additional history exists RSV Immunization (1 - 1-dose 75+ series) 2042 Meningococcal B Vaccine Aged Out No l onger eligible based on patient's age to complete this topic Meningococcal Vaccine Aged Out No socorro mick eligible based on patient's age to complete this topic Medical Devices Implanted Type Area Motion Picture Camera Operator Device Identifier Shelf Expiration Date Model / Serial / Lot Lead Sprint Quattro [id number] - [id number] Implanted:Qty: 1 on 02/21/2023 by Justus Beyer MD at [facility] [address] Implant Right: VENTRICLE [employer] 11/24/2024 [id number] / [id number] V / [id number] V Envelope Absorbable Antibacterial [id number] - [id number] Implanted:Qty: 1 on 02/21/2023 by Justus Beyer MD at [facility] [address] Implant Left: Chest Wall [employer] 11/26/2023 [id number] / / [id number] Icd Alton Mri Vr Single Df4 - [id number] Implanted:Qty: 1 on 02/21/2023 by Justus Beyer MD at [facility] [address] Implant Left: Chest [employer] 07/13/2024 [id number] / [id number] / [id number] Procedures Procedure Name Priority Date/Time Associated Diagnosis Comments BASIC METABOLIC PANEL Routine 02/21/2023 6:10 AM EDT from Last 3 Months or Most Recently Relevant to Health Maintenance Results * Basic metabolic panel (02/21/2023 6:10 AM EDT) [facility] Glucose 79 65 - 110 mg/dL 02/21/2023 6:50 AM EDT [facility] Comment: Non-fastin-110 mg/dL Fasting (minimum 6 hrs): 65-99 mg/dL BUN 10 7 - 18 mg/dL 02/21/2023 6:50 AM EDT [facility] Creatinine 0.89 0.70 - 1.30 mg/dL 02/21/2023 6:50 AM EDT [facility] Sodium 138 136 - 145 mmol/L 02/21/2023 6:50 AM EDT [facility] Potassium 4.2 3.5 - 5.1 mmol/L 02/21/2023 6:50 AM EDT [facility] Comment:Specimen slightly he molyzed. Chloride 104 98 - 107 mmol/L 02/21/2023 6:50 AM EDT [facility] CO2 27 21 - 32 mmol/L 02/21/2023 6:50 AM EDT [facility] Anion Gap 7 5 - 15 mmol/L 02/21/2023 6:50 AM T [facility] Calcium 9.4 8.5 - 10.1 mg/dL 02/21/2023 6:50 AM T [facility] eGFR (Creatinine) >60 >=60 mL/min/1.7 3m2 02/21/2023 6:50 AM EDT [facility] Comment: Values < 60 mL/min/1.73 m2 may indicate CKD if present for more than three months AND creatinine is at steady state. The eGFR provides a rough estimate of kidney function. On 03/01/22 all [facility] Clinical Labs and Epic began using a mky-wzyn-wdepi formula for estimating GFR called CKD-EPI Creatinine 2020. This equation reports eGFR based on creatinine, patient age, clinical sex, and is standardized to a body surface area of 1.73 m2. For the same creatinine, this new race-free eGFR will be lower than prior reported Black eGFR results and higher than prior Non-Black eGFR results. For further guidance, please refer to the CKD: Adult Proof Tester Signature pathway. Blood Venipuncture / Unknown 02/21/2023 6:10 AM EDT 02/21/2023 6:22 AM EDT us Alessandro Og MD LAB BLOOD ORDERABLES Final Result [facility] [address] [place] [address] from Last 3 Months or Most Recently Relevant to Health Maintenance Insurance [facility] MEDICARE [place] [employer] [facility] MEDIC[facility] Advance Directives * Full Code (Latest Code Status on File) Date Activated Date Inactivated Comments 02/19/2023 1:39 AM 02/23/2023 7:02 PM
--- OUTSIDE RECORDS SUMMARY | 2025-05-19 11:53 | XMS_ITS | Clinical Summary ---
Author Organization [facility] Address [address] [address] Phone Care Team Providers Care Dyehouse Worker Name Role Phone VincentRodrick, Lisaporfirio Ayala ROUSTABOUT HEAD Primary Care Prov ider Amarjit Roberto MD Unavailable [phone] Fabricio Chaudhary MD Unavailable [phone] Allergies No known active allergies Medications amiodarone [...] episodes. 1% A-fib burden. No parameter changes. RESEARCH AND DEVELOPMENT RESEARCHER 4.1%. Plan: Continue remote checks Follow-up in [...] OAC. This was discontinued by his primary employment clerk. If he has an increase in overall burden, will reinstitute oral anticoagulation. Patient had labs done recently with his primary care doctor and employment clerk. I will request these records. Will assess [...] PM EDT): S/p ICD. Currently on amiodarone. Social History Tobacco Use Types Packs/Day Years [...] Description 08/01/2025 10:20 AM EST Office Visit [facility] [address] [place] [address] [address]rd Floor, [address] [place] [address] Preet Spencer MD [address] [place] [address] Health Maintenance Due Date Last Done Comments [...] ears) (1 of 1 - PCV) 2017 RSV VACCINE (1 - Risk 50-74 years 1-dose series) 2017 ZOSTER VACCINES (1 of 2) 2017 LIPID PANEL 03/13/2024 03/13/2019 INFLUENZA VACCINE (#1) 2025 COVID-19 VACCINE (1 - 2024-2 6 season) 2025 HEPATITIS A VACCINES Aged Out [...] topic Medical Devices Not on file Insurance [employer] MEDICARE PART A & [place] PART A & [place] [address] [place] [address] MEDICARE PART A & [place] PART A & B Care Teams Dyehouse Worker Relationship Specialty Start Date End Date Lisa Heard FNP [address] [place] [address] [address] [place] [address] PCP - General Family Medicine 06/17/24 Amarjit Roberto MD [address] [place] [address] Dr [address] [place] [address] Orthopedic Surgery 01/22/25 Fabricio Chaudhary MD [address] [place] [address] [address] [place] [address] Cardiology 01/22/25 Additional Source Comments The information contained in this document represents components of the legal health record. It is not the complete legal health record.[facility]
--- OUTSIDE RECORDS SUMMARY | 2025-05-19 11:53 | XMS_ITS | Encounter Summary ---
Author Organization [facility] Address [address] [place] [address] Care Team Providers Care Emergency Specialist Name Role Phone Unavailable Primary Care Provider Unavailabl e Encounter Details Date Type Department Care Team (Late st Contact Info) Description 03/22/2023 Scanned Document [facility] [place] [address] [facility], [address] [address] Provider, Historical . Social History Tobacco Use [...] your living situation today? I have a [facility] place to live 02/20/2023 Interpersonal [...]
--- OUTSIDE RECORDS SUMMARY | 2025-05-19 11:53 | XMS_ITS | Encounter Summary ---
Author Organization [facility] Address [address] [place] [address] Care Team Providers Care Organizational Psychologist Name Role Phone Unavailable Primary Care Provider Unavailabl e Reason for Visit * Reason Comments Med Change Request Encounter Details Date Type Department Care Team (Late st Contact Info) Description 03/23/2023 Refill [facility] [place] [address] [facility], [address], [place] [id number] Santi Mirza MD [address] [facility] [address] [place] [address] Med Change Request Social History [...] living situation today? I have a [facility] place to live 02/20/2023 Interpersonal Safety [...]
--- OUTSIDE RECORDS SUMMARY | 2025-05-19 11:53 | XMS_ITS | Clinical Summary ---
Author Organization [facility] Address [address] [place] [address] Care Team Providers Care Abrasive Mixer Helper Name Role Phone Cecy García MD Primary Care Provider [phone] Active Problems Problem Noted Date Diagnosed Date Hypertension 06/10/2019 Bilateral knee pain 01/18/2018 Surgical History Surgery Date Site/Laterality Comments ANKLE FRACTURE SURGERY PROCEDURE: [facility] OPEN TREATMENT MEDIAL MALLEOLUS FRACTURE KNEE ARTHROSCOPY W/ MENISCAL REPAIR PROCEDURE: NH ARTHROSCOPY KNEE W/MENISCUS RPR MEDIAL/LATERAL Family History [...] BMP Blood Test 01/09/2025 01/10/2024 COVID-19 Vaccine (1 - 2023-2 5 season) 2025 Influenza Vaccine (#1) 2025 Colorectal Cancer Screening: Colonoscopy 11/19/2028 11/19/2018 RSV Immunization Adult Patie nts (1 - 1-dose 75+ series) 2042 Hepatitis C Screening Completed 10/15/2023 HIB Vaccines [...] Final Result * [facility]23[facility] C Screening abstracted Historical Provider HEALTH MAINTENANCE Final Result * (ABNORMAL) Lipid panel (03/13/2019) [facility] LDL/HDL Ratio 3 0 - 4 Triglycerides 54 0 - 150 mg/dL Cholesterol 189 0 - 200 mg/dL HDL 57 >=40 mg/dL LDL Cholesterol 122(A) 0 - 100 mg/dL Blood Venous blood specimen / Unknown [facility] Provider LAB BLOOD ORDERABLES Lore l Result * Colonoscopy (11/19/2018) [facility] Colonoscopy normal, abstracted Anatomical Region Laterality Modality Other [facility] Provider HEALTH MAINTENANCE Final Result from Last 3 Months or Most Recently Relevant to Health Maintenance Care Teams Abrasive Mixer Helper Relationship Specialty Start Date End Date Cecy García MD [address] [place] [address] PCP - General Internal Medicine 10/30/17
--- OUTSIDE RECORDS SUMMARY | 2025-05-19 11:53 | XMS_ITS | Encounter Summary ---
Author Organization [facility] Address [address] [place] [address] Care Team Providers Care Infant And Toddler Teacher Name Role Phone Unavailable Primary Care Provider Unavailabl e Reason for Visit * Reason Comments Medication Refill Encounter Details Date Type Department Care Team (Late st Contact Info) Description 04/14/2023 Refill [facility] [place] [address] [facility], [address], [place] [id number] Santi Mirza MD [address] [facility] [address] [place] [address] Medication Refill Social History Tobacco [...] your living situation today? [facility] 02/20/2023 Interpersonal Safety [...]
--- OUTSIDE RECORDS SUMMARY | 2025-05-19 11:53 | XMS_ITS | Encounter Summary ---
Author Organization [facility] Address [address] [place] [address] Care Team Providers Care Centrifugal Station Operator Name Role Phone Unavailable Primary Care Provider Unavailabl e Reason for Visit * Reason Comments Medication Refill Encounter Details Date Type Department Care Team (Late st Contact Info) Description 04/14/2024 Refill [facility] [place] [address] [facility], [address], [place] [id number] Santi Mirza MD [address] [facility] [address], [place] [address] Medication Refill Social History Tobacco [...] your living situation today? [facility] 02/20/2023 Interpersonal [...]
--- OUTSIDE RECORDS SUMMARY | 2025-05-19 11:53 | XMS_ITS | Clinical Summary ---
Author Organization [facility] Address [address] [place] [address] Care Team Providers Care Sheep Or Calf Grader Name Role Phone Cecy García Primary Care Provider [phone] Allergies No known active allergies Medications amiodarone [...] to have alisha-duodenal hematoma so transferred to [facility]. With hypotension and lactic acidosis initially improved after 2 units of PRBCs. CTA at [facility] showed large hematoma involving the second [...] to have alisha-duodenal hematoma so transferred to [facility]. With hypotension and lactic acidosis [...] PM EDT): Patient had prior admission to [facility] in February of last year where he [...] During his admission in February 2023 at [facility] he had alcohol withdrawal through day 5 [...] PM EDT): Status post 2 cardioversions at [facility]. Continue with Eliquis. Continue with amiodarone for [...] elevation and prior normal colonoscopy reported at [facility] 8 years ago warranting return [...] in place. Patient had prior admission to [facility] in February of last year where he [...] Additional history exists COVID-19 Vaccine (1 - 2024-2 6 season) 2025 Influenza Vaccine (#1) 2025 04/14/2020, 2019 DTaP,Tdap,and Td Vaccines (3 - Tdap) 01/08/2026 01/09/2016, 01/31/2007 Colon Cancer Screening 01/08/2034 Colonoscopy 01/08/2034 01/09/2024, 12/16, 01/09/2024 RSV Vaccine (60+ years old a nd patients) (1 - 1-dose 75+ series) 2042 Tobacco Screening 07/17/2042 01/09/2024 Medical Devices Implanted Type Area Audiovisual Tech Device Identifier Shelf Expiration Date Model / Serial / Lot Soft 4x30 Embold - [id number] Implanted:Qty: 1 on 10/15/2023 at [facility] Implant [employer] [id number] 05/23/2026 [id number] / / [id number] Soft 4x30 Embold - [id number] Implanted:Qty: 1 on 10/15/2023 by Jeffrey Srivastava MD at [facility] Implant [employer] [id number] 03/08/2024 [id number] / / [id number] Soft 5x30 Embold - [id number] Implanted:Qty: 1 on 10/15/2023 by Jeffrey Srivastava MD at [facility] Implant [employer] [id number] / / Coil Embolization Fibered Detachable Us 5x15 Embold - [id number] Implanted:Qty: 1 on 10/15/2023 by Jeffrey Srivastava MD at [facility] Implant [employer] [id number] / / Device Closure Vascular Plug 6fr Angio-Seal Vip - [id number] Implanted:Qty: 1 on 10/15/2023 by Jeffrey Srivastava MD at [facility] Implant Right: Groin [employer] [id number] 06/18/2024 [id number] / / [id number] Procedures * Due to [place] state law, this organization might not be sharing negative HIV tests. Procedure Name Priority Date/Time Associated Diagnosis Comments COMPREHENSIVE METABOLIC PANEL Routine 01/10/2024 5:49 AM EDT COLONOSCOPY 01/09/2024 from Last 3 Months or Most Recently Relevant to Health Maintenance Results * Due to [place] state law, this organization might not be sharing negative HIV tests. * (ABNORMAL) Comprehensive metabolic panel (01/10/2024 5:49 AM EDT) NA 139 135 - 145 mmol/L 01/10/2024 8:46 AM EDT [facility] K 3.4(L) 3.5 - 5.3 mmol/L 01/10/2024 8:46 AM EDT [facility] Cl 103 98 - 107 mmol/L 01/10/2024 8:46 AM EDT [facility] CO2 26 24 - 32 mmol/L 01/10/2024 8:46 AM EDT [facility] Anion Gap 10 5 - 15 01/10/2024 8:46 AM EDT [facility] Glucose 89 65 - 99 mg/dL 01/10/2024 8:46 AM EDT [facility] Creatinine 0.86 0.60 - 1.30 mg/dL 01/10/2024 8:46 AM EDT [facility] Calcium 8.5(L) 8.6 - 10.5 mg/dL 01/10/2024 8:46 AM EDT [facility] Total Protein 5.8(L) 6.0 - 8.0 g/dL 01/10/2024 8:46 AM EDT [facility] Albumin 3.4(L) 3.5 - 5.2 g/dL 01/10/2024 8:46 AM EDT [facility] Bilirubin, Total 0.4 0.2 - 1.2 mg/dL 01/10/2024 8:46 AM EDT [facility] Alkaline Phosphatase 65 35 - 129 U/L 01/10/2024 8:46 AM EDT [facility] AST 14 10 - 40 U/L 01/10/2024 8:46 AM EDT [facility] ALT 13 10 - 40 U/L 01/10/2024 8:46 AM EDT [facility] BUN 7 7 - 23 mg/dL 01/10/2024 8:46 AM EDT [facility] eGFR >90 >=60 mL/min/1. 73m2 01/10/2024 8:46 AM EDT [facility] Comment:The estimated glomer [...] - 4.2 g/dL 01/10/2024 8:46 AM EDT [facility] A/G Ratio 1.4(L) 1.5 - 3.0 01/10/2024 8:46 AM EDT [facility] Blood Structure of peripheral vein / Unknown Venipuncture / Unknown 01/10/2024 5:49 AM EDT 01/10/2024 7:58 AM EDT us Arturo Perez MD LAB BLOOD ORDERABLES Final Result [facility] [address] [place] [address], * COLONOSCOPY (01/09/2024) Narrative Procedure Note Leah Correa MD - 01/09/2024 10:13 AM EDT [facility] Gastroenterology Patient Name: Nitesh Osorio Procedure Date: 01/09/2024 10:13 AM Date of : 1965 Admit Type: Inpatient Age: 58 Room: [place] [address] Gender: Male Note Status: Finalized Attending MD: [...] Most Recently Relevant to Health Maintenance Insurance [facility] Advance Directives Documents on File Type Date Recorded Patient Comber Operator Expl anation Health Care Proxy 10/17/2023 9:51 [...] ( Lue ) Devon Sister Alternate [facility] Care Agent Care Teams Sheep Or Calf Grader Relationship Specialty Start Date End Date Cecy García PCP - General Internal Medicine 10/27/23
== END 2025-05-19 11:34 | disposition home or self-care (01) ==
LOC: HO.HMCH 10:00
DX: Z00.00 Encounter for general adult medical examination without abnormal findings (principal); I10 Essential (primary) hypertension; I48.0 Paroxysmal atrial fibrillation; K70.0 Alcoholic fatty liver; G47.33 Obstructive sleep apnea (adult) (pediatric); Z99.89 Dependence on other enabling machines and devices; M16.11 Unilateral primary osteoarthritis, right hip; E78.00 Pure hypercholesterolemia, unspecified; M25.511 Pain in right shoulder

== ENCOUNTER → 2025-05-19 10:00 | Outpatient (BNVA) | payer MEDICARE, MEDICAID, SELFPAY | DX: Z00.00 Encounter for general adult medical examination without abnormal findings (principal); I10 Essential (primary) hypertension; I48.0 Paroxysmal atrial fibrillation; K70.0 Alcoholic fatty liver; G47.33 Obstructive sleep apnea (adult) (pediatric); E78.00 Pure hypercholesterolemia, unspecified; M25.511 Pain in right shoulder; Z99.89 Dependence on other enabling machines and devices; Z13.31 Encounter for screening for depression; Z13.39 Encounter for screening examination for other mental health and behavioral disorders | CPT/HCPCS: 96127; 99396 ==

== ENCOUNTER → 2025-06-17 09:23 | Outpatient (BNV) | payer MEDICARE, MEDICAID, SELFPAY | PROVIDERS: Visit Provider Internal Medicine | DX: I42.8 Other cardiomyopathies (principal); I49.3 Ventricular premature depolarization; Z95.810 Presence of automatic (implantable) cardiac defibrillator | CPT/HCPCS: 93295 ==

== ENCOUNTER → 2025-06-17 09:24 | Outpatient (BNV) | payer MEDICARE, MEDICAID, SELFPAY | PROVIDERS: Visit Provider Internal Medicine | DX: I50.9 Heart failure, unspecified (principal); Z95.810 Presence of automatic (implantable) cardiac defibrillator | CPT/HCPCS: 93297 ==

== ENCOUNTER → 2025-07-07 17:15 | Outpatient (BNV) | payer MEDICARE, MEDICAID, SELFPAY | PROVIDERS: Visit Provider Internal Medicine | DX: Z45.02 Encounter for adjustment and management of automatic implantable cardiac defibrillator (principal) | CPT/HCPCS: 93297 ==